=== PATIENT | female | born 1960 | race African-American/Black ===

== ENCOUNTER 2016-08-12 17:15 | Inpatient (IN) | payer OTHER, MEDICAID, MEDICARE ==
[~2016-08-12] VITALS: Ht 162.6 cm; Wt 86.0 kg
[2016-08-12] VITALS (11 sets, daily range): BP systolic 101–239; BP diastolic 56–115; PULSE 86–114; RESP 16–20; TEMP 97.6–98.5; O2SAT 98–100
[2016-08-12] MEDS ORDERED: ATOR10TA15 PO (17:30)
[2016-08-12] MEDS ORDERED: HYDR25TA5 PO (17:30)
[2016-08-12] MEDS ORDERED: GLIP5TAB8 PO (17:30)
[2016-08-12] MEDS ORDERED: ENAL20TA PO (17:30)
[2016-08-12] MEDS ORDERED: SODIUM CHLORIDE 0.9% FLUSH 5 ML FLUSH IV FLUSH PRN (17:30)
[2016-08-12] MEDS ORDERED: METO50TA PO (17:30)
--- NOTE | 2016-08-12 17:42 | RADRPT ---
EXAM DATE/TIME: 08/12/2016 17:28 [facility] COMPARISON: No previous studies available for comparison. INDICATIONS : Altered mental status. Right sided weakness with facial droop. RADIATION DOSE: 34.77 CTDIvol (mGy) MEDICAL HISTORY : Non-responsive. SURGICAL HISTORY : Non-responsive. ENCOUNTER: Initial ACUITY: 1 day PAIN SCALE: Non-responsive LOCATION: facial TECHNIQUE: Multiple contiguous axial images were obtained of the head. Using automated exposure control and adj ustment of the mA and/or kV according to patient size, radiation dose was kept as low as reasonably a chievable to obtain optimal diagnostic quality images. FINDINGS: CEREBRUM: Focal acute hemorrhagic infarct involving the left thalamic area. This is most likely a hypertensive hemorrhagic infarct. There is bilateral cortical atrophy. There is chronic white matter changes bilat erally. No significant mass effect or midline shift. The ventricles are normal in size for patient's age. The hemorrhagic infarct measures 2.3 cm in diameter. POSTERIOR FOSSA: The cerebellum and brainstem are intact. The 4th ventricle is midline. The cerebellopontine angle i s unremarkable. EXTRACRANIAL: The visualized portion of the orbits is intact. SKULL: The calvaria is intact. No evidence of skull fracture. CONCLUSION: 1. Focal acute hemorrhagic infarct involving the left thalamic area measuring 2.3 cm in diameter. Thi s is most likely a hypertensive infarct. 2. Bilateral chronic white matter changes. Arcenio Ceunca MD on August 12, 2016 at 17:38 Board Certified Radiologist. This report was verified electronically.
[2016-08-12] MEDS ORDERED: ETOMIDATE 20 MG/10 ML VIAL IVP ONE (17:45)
[2016-08-12] MEDS ORDERED: ROCURONIUM INJ 50 MG/5 ML VIAL IV ONE (17:45)
[2016-08-12] MEDS ORDERED: LIDOCAINE HCL 2% 100 MG/5 ML SYRINGE IVP ONE (17:45)
[2016-08-12] MEDS ORDERED: SUCCINYLCHOLINE CHLORIDE 200 MG/10 ML VIAL IVP ONE (17:45)
[2016-08-12] MEDS ORDERED: LIDOCAINE HCL 1% 30 ML VIAL INFIL ONE (17:45)
[2016-08-12] MEDS ORDERED: SODIUM CHLORIDE 0.9% FLUSH 10 ML FLUSH IVF PRN (17:45)
[2016-08-12] MEDS ORDERED: PROPOFOL 1000 MG/100 ML INJ 100 ML IV SCH (17:45)
[2016-08-12] MEDS: niCARdipine INJ 25 MG in SODIUM CHLOR 0.9% 250 ML INJ 250 ML IV SCH ×3 (17:57→23:20)
[2016-08-12] MEDS ORDERED: MIDAZOLAM HCL 5 MG/ML VIAL (1 ML) ONE (18:13)
[2016-08-12] MEDS ORDERED: MIDAZOLAM HCL 2 MG/2 ML VIAL IV PUSH ONE (18:15)
[2016-08-12] MEDS ORDERED: MIDAZOLAM 100 MG/ML INJ 100 ML ONE (18:20)
--- NOTE | 2016-08-12 18:27 | RADRPT ---
EXAM DATE/TIME: 08/12/2016 18:09 [facility] COMPARISON: No previous studies available for comparison. INDICATIONS : Post intubation, syncope. MEDICAL HISTORY : None. SURGICAL HISTORY : None. ENCOUNTER: Initial ACUITY: 1 day PAIN SCORE: Non-responsive. LOCATION: Bilateral chest FINDINGS: 2 portable supine views of the chest show an endotracheal tube with the tip at the origin of the righ t mainstem bronchus. Nasogastric tube tip in the region of the body the stomach. Left lower lobe intr alobular infiltrate with air bronchograms. Right lung clear. No effusions. Mild cardiomegaly. Degener ative thoracic spine. CONCLUSION: 1. Tip of the endotracheal tube in the right mainstem bronchus origin. Suggest retracting it 2-3 cm. 2. Left lower lobe infiltrate. 3. Cardiomegaly. Benito Blanco Jr., MD on August 12, 2016 at 18:24 Board Certified Radiologist. This report was verified electronically.
[2016-08-12] MEDS ORDERED: BISACODYL 10 MG SUPP RECTAL PRN (18:30)
[2016-08-12] MEDS ORDERED: SENNOSIDES 8.6 MG TAB PO PRN (18:30)
[2016-08-12] MEDS ORDERED: RESP: ALBUTEROL 2.5 MG/IPRATROPIUM 0.5 MG NEB (PRN) INH (18:30)
[2016-08-12] MEDS ORDERED: MISCELLANEOUS NURSING INFORMATION XX SCH (18:30)
[2016-08-12] MEDS ORDERED: SODIUM CHLORIDE 0.9% FLUSH 10 ML FLUSH PRN (18:30)
[2016-08-12] MEDS ORDERED: LACTULOSE SYRUP 20 GM/30 ML CUP PO PRN (18:30)
[2016-08-12] MEDS ORDERED: CHLORHEXIDINE GLUCONATE 2 % 1 PACK (2 CLOTHS) TOP PRN (18:30)
[2016-08-12 18:32] LABS: AUTOMATED NEUTROPHIL # 14.8 TH/MM3 (1.8-7.7); BASOPHIL % 0.2 % (0.0-2.0); EOSINOPHIL % 0.1 % (0.0-4.0); HEMATOCRIT 32.4 % (35.0-46.0); HEMO FLAGS DIFF FINAL; LYMPH % 6.5 % (9.0-44.0); LYMPHOCYTE # 1.1 TH/MM3 (1.0-4.8); MEAN CELL VOLUME 86.9 FL (80.0-100.0); MEAN CORPUSCULAR HEMOGLOBIN 26.4 PG (27.0-34.0); MEAN CORPUSCULAR HGB CONC 30.4 % (32.0-36.0); MONO % 4.4 % (0.0-8.0); NEUT % 88.8 % (16.0-70.0); PLATELET COUNT 215 TH/MM3 (150-450); RED BLOOD COUNT 3.72 MIL/MM3 (4.00-5.30); RED CELL DISTRIBUTION WIDTH 13.2 % (11.6-17.2); WHITE BLOOD COUNT 16.7 TH/MM3 (4.0-11.0)
[2016-08-12 18:39] LABS: BLOOD, URINE MOD (NEG); GLUCOSE,URINE 70 mg/dL (NEG); KETONE, URINE NEG (NEG); MUCUS URINE FEW /lpf (OCC); NITRITE,URINE NEG (NEG); URINE COLOR LIGHT-YELLOW (YELLW/STRAW)
[2016-08-12 18:41] LABS: COMMENT (UR) CATH-CULT NOT IND; CULTURE IF INDICATED CATH CULTURE NOT IND
[2016-08-12 18:44] LABS: APTT (PATIENT) 25.6 SEC (24.3-30.1); PROTHROMBIN TIME - PATIENT 10.7 SEC (9.8-11.6)
[2016-08-12] MEDS ORDERED: VANCOMYCIN INJ 1,000 MG in SODIUM CHLOR 0.9% 250 ML INJ 250 ML IV STA (18:46)
[2016-08-12] MEDS ORDERED: PIPERACIL-TAZO 4.5 GM PREMIX 100 ML IV STA (18:46)
[2016-08-12 18:47] LABS: ANION GAP 11 MEQ/L (5-15); AST (GOT) 19 U/L (15-37); BICARBONATE 21.2 MEQ/L (21.0-32.0); BLOOD UREA NITROGEN 29 MG/DL (7-18); CHLORIDE 112 MEQ/L (98-107); GLOMERULAR FILTRATION RATE 17 ML/MIN (>89); POTASSIUM 4.1 MEQ/L (3.5-5.1); SODIUM (NA) 144 MEQ/L (136-145)
[2016-08-12 18:48] LABS: ALT (GPT) 19 U/L (10-53)
[2016-08-12] MEDS ORDERED: SUCCINYLCHOLINE CHLORIDE 200 MG/10 ML VIAL ONE (18:48)
[2016-08-12] MEDS ORDERED: ROCURONIUM INJ 50 MG/5 ML VIAL ONE (18:49)
[2016-08-12] MEDS ORDERED: ETOMIDATE 20 MG/10 ML VIAL ONE (18:50)
[2016-08-12 18:57] LABS: ALKALINE PHOSPHATASE 94 U/L (45-117); CREATINE KINASE 338 U/L (26-192); TOTAL BILIRUBIN ADULT 0.3 MG/DL (0.2-1.0)
[2016-08-12 19:01] LABS: BLOOD GAS BASE EXCESS -5.1 mmol/L (-2-2); BLOOD GAS CARBOXYHEMOGLOBIN 1.1 % (0-4); BLOOD GAS HCO3 19 mmol/L (22-26); BLOOD GAS METHEMOGLOBIN 0.7 % (0-2); BLOOD GAS O2 HGB SATURATION 92 % (90-100); BLOOD GAS OXYGEN CONTENT 15.7 Vol % (12.0-20.0); BLOOD GAS PCO2 35 mmHg (38-42); BLOOD GAS PO2 69 mmHG (61-120); BLOOD GAS TOTAL HGB 12.1 G/DL (12.0-16.0); CRITICAL VALUE NO; OXYGEN DEVICE VENTILATOR; TEMP CORR TO 98.6
[2016-08-12 19:02] LABS: DRAW SITE LT RADIAL; FIO2 100 %; NUMBER OF ARTERIAL PUNCTURES 1; STAT YES; ULNAR PULSE PRESENT; VENT SETTINGS PRVC/AC
[2016-08-12 19:10] LABS: CKMB 1.9 NG/ML (0.5-3.6)
[2016-08-12] MEDS ORDERED: LABETALOL HCL 100 MG/20 ML VIAL IV PUSH ONE (19:15)
--- NOTE | 2016-08-12 19:21 | PD ---
HPI Chief Complaint: Neuro Symptoms/ Deficits Time Seen by Provider: 17:19 Travel History International Travel<30 days: No Contact w/Intl Traveler<30days: No Traveled to known affect area: No History of Present Illness HPI 56-year-old female presents with last seen normal at 530am. patient has right sided weakness but outside stroke alert window, nonverbal here. history significantly limited, no prior records, ems provided History Past Medical History Medical History: Unable to Obtain Tetanus Vaccination: Unknown Influenza Vaccination: No Past Surgical History Surgical History: Unable to Obtain Social History Alcohol Use: No (unknown) Tobacco Use: No (unknown) Allergies-Medications (Allergen,Severity, Reaction): Coded Allergies: UNOBTAINABLE (Unverified , 08/12/16) Reported Meds & Prescriptions Reported Meds & Active Scripts Active Reported Metoprolol Tartrate 50 Mg Tab 50 Mg PO BID Enalapril (Enalapril Maleate) 20 Mg Tab 20 Mg PO DAILY Hydrochlorothiazide 25 Mg Tab 25 Mg PO DAILY Glipizide 5 Mg Tab 5 Mg PO BIDAC Take 30 minutes before a meal Atorvastatin (Atorvastatin Calcium) 10 Mg Tab 10 Mg PO HS Review of Systems ROS Limitations: Clinical Condition, Altered Mental Status Physical Exam Exam Limitations: Clinical Condition, Altered Mental Status Narrative GENERAL: Well-nourished, well-developed patient. SKIN: Warm and dry. HEAD: Normocephalic and atraumatic. EYES: No injection or drainage. ENT: No nasal drainage noted. pupils equal NECK: Supple, trachea midline. CARDIOVASCULAR: Regular rate and rhythm RESPIRATORY: Breath sounds equal bilaterally at apices. No accessory muscle use. GASTROINTESTINAL: Abdomen soft, nondistended. NEUROLOGICAL: nonverbal, right sided flaccid paralysis, leftward gaze Data Data Last Documented VS Vital Signs Date Time Temp Pulse Resp B/P Pulse Ox O2 Delivery O2 Flow Rate FiO2 08/12/16 18:05 112 20 222/106 100 Auto-Vent 08/12/16 18:00 100 08/12/16 17:34 2 08/12/16 17:18 97.6 Orders Electrocardiogram (08/12/16 17:19) Complete Blood Count With Diff (08/12/16 17:19) Comprehensive Metabolic Panel (08/12/16 17:19) Creatine Kinase (Cpk) (08/12/16 17:19) Prothrombin Time / Inr (Pt) (08/12/16 17:19) Act Partial Throm Time (Ptt) (08/12/16 17:19) Troponin I (08/12/16 17:19) Thyroid Stimulating Hormone (08/12/16 17:19) Urinalysis - C+S If Indicated (08/12/16 17:19) Chest, Single Ap (08/12/16 17:19) Ct Brain W/O Iv Contrast(Rout) (08/12/16 17:19) Blood Glucose (08/12/16 17:19) Ecg Monitoring (08/12/16 17:19) Iv Access Insert/Monitor (08/12/16 17:19) Oximetry (08/12/16 17:19) Sodium Chloride 0.9% Flush (Ns Flush) (08/12/16:30) Etomidate Inj (Amidate Inj) (08/12/16 17:45) Succinylcholine Inj (Quelicin Inj) (08/12/16 17:45) Sodium Chloride 0.9% Flush (Ns Flush) (08/12/16 17:45) Lidocaine 2% Inj (Xylocaine 2% Inj) (08/12/16 17:45) Rocuronium Inj (Zemuron Inj) (08/12/16 17:45) Propofol 1000 Mg/100 Ml Inj (Diprivan 10 (08/12/16 17:45) ^ Infusion (08/12/16 17:34) RASS (08/12/16 17:34) Neurological Rass Scale ALANA.Q2H (08/12/16 17:34) Nicardipine Inj (Cardene Inj) (08/12/16 17:45) Lidocaine 1% Inj (Xylocaine 1% Inj) (08/12/16 17:45) Admit Order (Ed Use Only) (08/12/16 18:03) CKMB (08/12/16 18:00) CKMB% (08/12/16 18:00) Labs Laboratory Tests Test 08/12/16 18:00 White Blood Count 16.7 TH/MM3 Red Blood Count 3.72 MIL/MM3 Hemoglobin 9.8 GM/DL Hematocrit 32.4 % Mean Corpuscular Volume 86.9 FL Mean Corpuscular Hemoglobin 26.4 PG Mean Corpuscular Hemoglobin 30.4 % Concent Red Cell Distribution Width 13.2 % Platelet Count 215 TH/MM3 Mean Platelet Volume 9.2 FL Neutrophils (%) (Auto) 88.8 % Lymphocytes (%) (Auto) 6.5 % Monocytes (%) (Auto) 4.4 % Eosinophils (%) (Auto) 0.1 % Basophils (%) (Auto) 0.2 % Neutrophils # (Auto) 14.8 TH/MM3 Lymphocytes # (Auto) 1.1 TH/MM3 Monocytes # (Auto) 0.7 TH/MM3 Eosinophils # (Auto) 0.0 TH/MM3 Basophils # (Auto) 0.0 TH/MM3 CBC Comment DIFF FINAL Differential Comment Prothrombin Time 10.7 SEC Prothromb Time International 1.0 RATIO Ratio Activated Partial 25.6 SEC Thromboplast Time Sodium Level 144 MEQ/L Potassium Level 4.1 MEQ/L Chloride Level 112 MEQ/L Carbon Dioxide Level 21.2 MEQ/L Anion Gap 11 MEQ/L Blood Urea Nitrogen 29 MG/DL Creatinine 3.38 MG/DL Estimat Glomerular Filtration 17 ML/MIN Rate Random Glucose 174 MG/DL Calcium Level 9.1 MG/DL Total Bilirubin 0.3 MG/DL Aspartate Amino Transf 19 U/L (AST/SGOT) Alanine Aminotransferase 19 U/L (ALT/SGPT) Alkaline Phosphatase 94 U/L Total Creatine Kinase 338 U/L Creatine Kinase MB 1.9 NG/ML Creatine Kinase MB % 0.6 % Troponin I 0.03 NG/ML Total Protein 7.7 GM/DL Albumin 3.2 GM/DL Thyroid Stimulating Hormone 0.832 uIU/ML [facility] Medical Decision Making Medical Screen Exam Complete: Yes Emergency Medical Condition: Yes Medical Record Reviewed: Yes (no prior records) Interpretation(s) CBC & BMP Diagram 08/12/16 18:00 Last [address] 08/12/161718 Signed Impressions: Service Date/Time: Friday, August 12, 2016 17:28 - CONCLUSION: 1. Focal acute hemorrhagic infarct involving the left thalamic area measuring 2.3 cm in diameter. This is most likely a hypertensive infarct. 2. Bilateral chronic white matter changes. Arcenio Cuenca MD Chest X-Ray 08/12/161718 Signed Impressions: Service Date/Time: Friday, August 12, 2016 18:09 - CONCLUSION: 1. Tip of the endotracheal tube in the right mainstem bronchus origin. Suggest retracting it 2-3 cm. 2. Left lower lobe infiltrate. 3. Cardiomegaly. Benito Blanco Jr., MD et tube pulled back ABG with PO2 of 70 on 100% FiO2 this will need to be reevaluated after ET tube pulled back Differential Diagnosis intracranial bleed, mass, stroke Narrative Course patient arrived with hemiplegia and altered with concern for intracranial bleed. Poor access, left-sided EJ placed by me on 1 attempt and blood sent, Called CT and patient went with staff and large bleed noted. When patient got back to room, intubated and started on cardene for bp control. I was in the room for over an hour to get blood pressure control with titrating propofol and Cardene. Adding versed for additional sedation. Labetalol bolus ordered on top. Rocuronium 45 mg given to decrease movement as propofol was titrated up and versed added. While he was in room patient started to have oxygen saturation in the low 90s with good waveform. Turned up FiO2. ET tube had been pushed down so this was pulled back and oxygen saturations improved. patient will need to be in icu, attempted left radial arterial line and unable to thread, dr davenport to take over care Critical Care Narrative Aggregate critical care time was 100 minutes. Time to perform other separately billable procedures was not included in the critical care time. My time did not include minutes spent treating any other patients simultaneously or on activities that did not directly contribute to the patient's treatment. The services I provided to this patient were to treat and/or prevent clinically significant deterioration that could result in: respiratory failure, shock I provided critical care services requiring my management, as noted below: Chart data review, documentation time, medication orders and management, vital sign assessments/reviewing monitor data, ordering and reviewing lab tests, ordering and interpreting/reviewing x-rays and diagnostic studies, care of the patient and discussion of the patient with the admitting physicians. Procedures Procedure Narrative emergently performed: INTUBATION: The patient was put in optimal position for the procedure. Rapid sequence intubation was initiated by me using 100mg of lidocaine, 5mg of rocuronium, 20 milligrams of etomidate IV and 100 milligrams of succinylcholine IV. The patient was intubated with a 7.5 cuffed endotracheal tube. Tube placement was confirmed by visualization of the tube and balloon passing through the cords, capnometry and subsequent chest x-ray. Breath sounds were equal and well aerated bilaterally postintubation. No breath sounds over stomach. Patient tolerated procedure well. Physician Communication Physician Communication dr davenport agrees to admit Diagnosis Primary Impression: Thalamic hemorrhage Additional Impressions: Hypertensive emergency Respiratory failure Qualified Code: J96.00 - Acute respiratory failure, unspecified whether with hypoxia or hypercapnia Elevated serum creatinine Admitting Information Admitting Physician Requests: Admit Geovanna Blackwell MD August 12, 2016 19:21
[2016-08-12] MEDS ORDERED: hydrALAZINE HCL 20 MG/ML VIAL ONE (19:32)
[2016-08-12] MEDS ORDERED: hydrALAZINE HCL 20 MG/ML VIAL IV ONE (19:34)
[2016-08-12] MEDS ORDERED: hydrALAZINE HCL 20 MG/ML VIAL IV PUSH ONE (19:45)
[2016-08-12] MEDS: SODIUM CHLOR 0.9% 1000 ML INJ 1,000 ML IV SCH (19:50)
--- NOTE | 2016-08-12 20:10 | RADRPT ---
EXAM DATE/TIME: 08/12/2016 19:45 [facility] COMPARISON: CHEST SINGLE AP, August 12, 2016, 18:09. INDICATIONS : Post central line placement. MEDICAL HISTORY : Non-responsive SURGICAL HISTORY : Non-responsive ENCOUNTER: Subsequent ACUITY: 1 day PAIN SCORE: Non-responsive. LOCATION: Bilateral chest FINDINGS: A single portable frontal view of the chest shows interval placement of a right subclavian central li ne. The tip is at the cavoatrial junction. No pneumothorax. Tip of the endotracheal tube just within the right mainstem bronchus. Left lower lobe infiltrate. No effusions. Right lung clear. Degenerative spine. Mild cardiomegaly. CONCLUSION: 1. Subclavian central line in good position. No pneumothorax. 2. Tip of the endotracheal tube within the right mainstem bronchus. 3. Left lower lobe infiltrate. 4. Cardiomegaly. Benito Blanco Jr., MD on August 12, 2016 at 20:07 Board Certified Radiologist. This report was verified electronically.
--- NOTE | 2016-08-12 20:16 | HHI.HP ---
HPI Service Critical Care Medicine Primary Care Physician Unknown Admission Diagnosis intracranial bleed Diagnosis: Travel History International Travel<30 Days: No Contact w/Intl Traveler <30 Da: No Traveled to Known Affected Are: No History of Present Illness 56-year-old female presents with last seen normal at 5:30am. On arrival to emergency department the patient has right sided weakness but outside stroke alert window, nonverbal. The CAT scan of the head showed acute left basal ganglia hemorrhagic stroke. She was intubated by an ER attending for an airway protection admitted to ICU. Review of Systems ROS Unable to obtain patient is sedated and intubated Past Family Social History Allergies: Coded Allergies: UNOBTAINABLE (Unverified , 08/12/16) Past Medical History Diabetes type 2 Hypertension Past Surgical History Unable to obtain Reported Medications Reported Meds & Active Scripts Active Reported Metoprolol Tartrate 50 Mg Tab 50 Mg PO BID Enalapril (Enalapril Maleate) 20 Mg Tab 20 Mg PO DAILY Hydrochlorothiazide 25 Mg Tab 25 Mg PO DAILY Glipizide 5 Mg Tab 5 Mg PO BIDAC Take 30 minutes before a meal Atorvastatin (Atorvastatin Calcium) 10 Mg Tab 10 Mg PO HS Active Ordered Medications Current Medications Medications (Trade) Dose Ordered Sig/Jones Route PRN Reason Start Time Stop Time Status Last Admin Dose Admin Nicardipine HCl 25 mg/Sodium Chloride 260 ml @ 0 mls/hr TITRATE IV 08/12/16 17:45 08/12/16 17:57 Midazolam HCl (Versed Inj) 100 ml @ 0 mls/hr CONTINUOUS IV 08/12/16 18:15 Enalapril Maleate (Vasotec) 20 mg DAILY PO 08/13/16 09:00 Metoprolol Tartrate 50 mg 50 mg BID PO 08/12/16 21:00 Sodium Chloride (NS 1000 ml Inj) 1,000 ml @ 84 mls/hr [id number] IV 08/12/16 19:00 08/12/16 19:50 Sodium Chloride (NS Flush) 2 ml UNSCH PRN .XX FLUSH AFTER USING IV ACCESS 08/12/16 18:30 Sodium Chloride (NS Flush) 2 ml BID .XX 08/12/16 21:00 Acetaminophen (Tylenol) 650 mg Q6H PRN PO PAIN 1-10 AND/OR FEVER >101F 08/12/16 18:30 Morphine Sulfate (Morphine Inj) 2 mg Q2H PRN IV PAIN SCALE 6 TO 10 08/12/16 18:30 Famotidine (Pepcid Inj) 10 mg Q12HR IV PUSH 08/12/16 21:00 Miscellaneous Information 1 [id number] XX 08/12/16 18:30 Chlorhexidine Gluconate (Chlorhexidine 2% Cloth) 3 pack Taper DAILY@04 TOP 08/13/16 04:00 08/09/17 03:59 Chlorhexidine Gluconate (Chlorhexidine 2% Cloth) 3 pack UNSCH PRN TOP HYGIENIC CARE 08/12/16 18:30 Senna/Docusate Sodium (Adele-Colace) 1 tab BID PO 08/12/16 21:00 Magnesium Hydroxide (Milk Of Magnesia Liq) 30 ml Q12H PRN PO MILD - MODERATE CONSTIPATION 08/12/16 18:30 Sennosides (Senokot) 17.2 mg Q12H PRN PO MODERATE - SEVERE CONSTIPATION 08/12/16 18:30 Bisacodyl (Dulcolax Supp) 10 mg DAILY PRN RECTAL SEVERE CONSITIPATION 08/12/16 18:30 Lactulose 30 ml 30 ml DAILY PRN PO SEVERE CONSITIPATION 08/12/16 18:30 Propofol (Diprivan 1000 Mg/100ml Inj) 100 ml @ 0 mls/hr TITRATE IV 08/12/16 18:30 Family History Unable to obtain Social History Unable to obtain Physical Exam Vital Signs Vital Signs Date Time Temp Pulse Resp B/P Pulse Ox O2 Delivery O2 Flow Rate FiO2 08/12/16 19:57 100 08/12/16 19:56 100 100 08/12/16 19:53 86 16 130/71 100 Ventilator 100 08/12/16 18:58 100 100 08/12/16 18:39 114 18 239/114 100 Auto-Vent 08/12/16 18:05 112 20 222/106 100 Auto-Vent 08/12/16 18:00 100 100 08/12/16 17:48 100 08/12/16 17:34 86 16 99 Nasal Cannula 2 08/12/16 17:34 86 16 235/115 99 Nasal Cannula 2 08/12/16 17:18 97.6 86 18 98 Physical Exam GENERAL: Well-nourished, well-developed patient. SKIN: Warm and dry. HEAD: Normocephalic. PERRL EYES: No scleral icterus. No injection or drainage. NECK: Supple, trachea midline. No JVD or lymphadenopathy. CARDIOVASCULAR: Regular rate and rhythm without murmurs, gallops, or rubs. RESPIRATORY: Breath sounds equal bilaterally. No accessory muscle use. GASTROINTESTINAL: Abdomen soft, non-tender, nondistended. MUSCULOSKELETAL: No cyanosis, or edema. BACK: Nontender without obvious deformity. No CVA tenderness. EXTREMITIES: No clubbing cyanosis or edema Laboratory Laboratory Tests Test 08/12/16 08/12/16 08/12/16 18:00 18:10 18:48 White Blood Count 16.7 Red Blood Count 3.72 Hemoglobin 9.8 Hematocrit 32.4 Mean Corpuscular Volume 86.9 Mean Corpuscular Hemoglobin 26.4 Mean Corpuscular Hemoglobin 30.4 Concent Red Cell Distribution Width 13.2 Platelet Count 215 Mean Platelet Volume 9.2 Neutrophils (%) (Auto) 88.8 Lymphocytes (%) (Auto) 6.5 Monocytes (%) (Auto) 4.4 Eosinophils (%) (Auto) 0.1 Basophils (%) (Auto) 0.2 Neutrophils # (Auto) 14.8 Lymphocytes # (Auto) 1.1 Monocytes # (Auto) 0.7 Eosinophils # (Auto) 0.0 Basophils # (Auto) 0.0 CBC Comment DIFF FINAL Differential Comment Prothrombin Time 10.7 Prothromb Time International 1.0 Ratio Activated Partial 25.6 Thromboplast Time Sodium Level 144 Potassium Level 4.1 Chloride Level 112 Carbon Dioxide Level 21.2 Anion Gap 11 Blood Urea Nitrogen 29 Creatinine 3.38 Estimat Glomerular Filtration 17 Rate Random Glucose 174 Calcium Level 9.1 Total Bilirubin 0.3 Aspartate Amino Transf 19 (AST/SGOT) Alanine Aminotransferase 19 (ALT/SGPT) Alkaline Phosphatase 94 Total Creatine Kinase 338 Creatine Kinase MB 1.9 Creatine Kinase MB % 0.6 Troponin I 0.03 Total Protein 7.7 Albumin 3.2 Thyroid Stimulating Hormone 0.832 3rd Gen Urine Color LIGHT-YELLOW Urine Turbidity CLEAR Urine pH 6.0 Urine Specific [place] 1.010 Urine Protein 300 Urine Glucose (UA) 70 Urine Ketones NEG Urine Occult Blood MOD Urine Nitrite NEG Urine Bilirubin NEG Urine Urobilinogen LESS THAN 2.0 Urine Leukocyte Esterase NEG Urine RBC 2 Urine WBC 2 Urine Mucus FEW Microscopic Urinalysis Comment CATH-CULT NOT IND Blood Gas Puncture Site LT RADIAL Blood Gas Patient Temperature 98.6 Blood Gas HCO3 19 Blood Gas Base Excess -5.1 Blood Gas Oxygen Saturation 92 Arterial Blood pH 7.36 Arterial Blood Partial 35 Pressure CO2 Arterial Blood Partial 69 Pressure O2 Arterial Blood Oxygen Content 15.7 Arterial Blood 1.1 Carboxyhemoglobin Arterial Blood Methemoglobin 0.7 Blood Gas Hemoglobin 12.1 Oxygen Delivery Device VENTILATOR Blood Gas Ventilator Setting PRVC/AC Blood Gas Inspired Oxygen 100 Date/Time Procedure Status Source Growth 08/12/16 19:20 Aerobic Blood Culture Received Blood Peripheral Pending 08/12/16 19:20 Anaerobic Blood Culture Received Blood Peripheral Pending Result Diagram: 08/12/16 1800 08/12/16 1800 Imaging Last [address] 08/12/161718 Signed Impressions: Service Date/Time: Friday, August 12, 2016 17:28 - CONCLUSION: 1. Focal acute hemorrhagic infarct involving the left thalamic area measuring 2.3 cm in diameter. This is most likely a hypertensive infarct. 2. Bilateral chronic white matter changes. Arcenio Cuenca MD Chest X-Ray 08/12/161718 Signed Impressions: Service Date/Time: Friday, August 12, 2016 18:09 - CONCLUSION: 1. Tip of the endotracheal tube in the right mainstem bronchus origin. Suggest retracting it 2-3 cm. 2. Left lower lobe infiltrate. 3. Cardiomegaly. Benito Blanco Jr., MD Assessment and Plan Assessment and Plan Respiratory failure - Weighted for an airway protection - SBT and start weaning when neurologically improved Acute hemorrhagic basal ganglia stroke - Due to uncontrolled blood pressure - Admit to ICU - Neuro checks per unit protocol - Repeat CT is tomorrow a.m. - Neurosurgery, - Coags normal - Blood pressure control - SBP goal less 160 Hypertension - Cardene drip to keep SBP less than 160 - Labetalol and hydralazine when necessary Diabetes mellitus - Hold glipizide in the ICU - Insulin sliding scale DVT GI prophylaxis - Teds SCDs - No pharmacological DVT prophylaxis due to acute ICH - Pepcid Critical Care: The total critical care time was 35 minutes. Time to perform other separately billable procedures was not included in the critical care time. Gatito Milian MD August 12, 2016 20:15
[2016-08-12] MEDS: PROPOFOL 1000 MG/100 ML INJ 100 ML IV SCH ×2 (20:21→23:20)
--- NOTE | 2016-08-12 20:23 | PD.PROCEDR ---
Procedure Note Procedure Right subclavian central line placement A time-out was completed verifying correct patient, procedure, site, positioning , and special equipment if applicable. The patient was placed in a dependent position appropriate for The patients right shoulder was prepped and draped in sterile fashion. 1% Lidocaine was used to anesthetize the surrounding skin area. A triple lumen 9- Danish Cordis catheter was introduced into the the right subclavian vein using the Seldinger technique. The catheter was threaded smoothly over the guide wire and appropriate blood return was obtained. Each lumen of the catheter was evacuated of air and flushed with sterile saline. The catheter was then sutured in place to the skin and a sterile dressing applied. Perfusion to the extremity distal to the point of catheter insertion was checked and found to be adequate. Estimated Blood Loss: 1ml The patient tolerated the procedure well and there were no complications. Gatito Milian MD August 12, 2016 20:23
--- NOTE | 2016-08-12 20:24 | PD.PROCEDR ---
Procedure Note Procedure Radial arterial line A time-out was completed verifying correct patient, procedure, site, positioning , and special equipment if applicable. Allens test was performed to ensure adequate perfusion. The patients right wrist was prepped and draped in sterile fashion. 1% Lidocaine was used to anesthetize the area. A 18G Arrow arterial line was introduced into the radial artery. The catheter was threaded over the guide wire and the needle was removed with appropriate pulsatile blood return. The catheter was then sutured in place to the skin and a sterile dressing applied. Perfusion to the extremity distal to the point of catheter insertion was checked and found to be adequate. Estimated Blood Loss: 1ml The patient tolerated the procedure well and there were no complications. Gatito Milian MD August 12, 2016 20:24
[2016-08-12] MEDS: hydrALAZINE HCL 20 MG/ML VIAL IV PUSH PRN (20:59)
[2016-08-12] MEDS: DOCUSATE SODIUM 50 MG/SENNA 8.6 MG TAB PO SCH (21:00)
[2016-08-12] MEDS: METOPROLOL TARTRATE 50 MG TAB PO SCH (21:00)
[2016-08-12] MEDS: SODIUM CHLORIDE 0.9% FLUSH 10 ML FLUSH SCH (21:08)
[2016-08-12] MEDS: FAMOTIDINE 20 MG/2 ML VIAL IV PUSH SCH (21:32)
[2016-08-12] MEDS: MIDAZOLAM 100 MG/ML INJ 100 ML IV SCH (22:08)
[2016-08-13] VITALS (18 sets, daily range): BP systolic 106–150; BP diastolic 52–80; PULSE 64–100; RESP 16; TEMP 97.6–98.3; O2SAT 100
[2016-08-13] MEDS: CHLORHEXIDINE GLUCONATE 2 % 1 PACK (2 CLOTHS) TOP SCH (00:15)
[2016-08-13] MEDS: PROPOFOL 1000 MG/100 ML INJ 100 ML IV SCH ×6 (01:45→20:20)
[2016-08-13 02:31] LABS: BLOOD GAS BASE EXCESS -6.1 mmol/L (-2-2); BLOOD GAS CARBOXYHEMOGLOBIN 0.9 % (0-4); BLOOD GAS HCO3 17 mmol/L (22-26); BLOOD GAS METHEMOGLOBIN 0.9 % (0-2); BLOOD GAS O2 HGB SATURATION 98 % (90-100); BLOOD GAS OXYGEN CONTENT 14.3 Vol % (12.0-20.0); BLOOD GAS PCO2 26 mmHg (38-42); BLOOD GAS PO2 250 mmHg (61-120); BLOOD GAS TOTAL HGB 9.9 G/DL (12.0-16.0); CRITICAL VALUE NO; OXYGEN DEVICE VENTILATOR; TEMP CORR TO 98.6
[2016-08-13 02:32] LABS: VENT SETTINGS PRVC
[2016-08-13 02:33] LABS: DRAW SITE ART LINE; FIO2 60 %; STAT NO
[2016-08-13] MEDS: niCARdipine INJ 25 MG in SODIUM CHLOR 0.9% 250 ML INJ 250 ML IV SCH ×3 (03:40→20:20)
[2016-08-13] MEDS: MIDAZOLAM 100 MG/ML INJ 100 ML IV SCH ×2 (03:40→15:20)
[2016-08-13 05:40] LABS: AUTOMATED NEUTROPHIL # 11.8 TH/MM3 (1.8-7.7); BASOPHIL # 0.1 TH/MM3 (0-0.2); BASOPHIL % 0.4 % (0.0-2.0); EOSINOPHIL % 0.1 % (0.0-4.0); HEMATOCRIT 28.8 % (35.0-46.0); HEMO FLAGS DIFF FINAL; LYMPH % 10.6 % (9.0-44.0); LYMPHOCYTE # 1.5 TH/MM3 (1.0-4.8); MEAN CELL VOLUME 85.6 FL (80.0-100.0); MEAN CORPUSCULAR HEMOGLOBIN 26.7 PG (27.0-34.0); MEAN CORPUSCULAR HGB CONC 31.2 % (32.0-36.0); MONO % 5.5 % (0.0-8.0); NEUT % 83.4 % (16.0-70.0); PLATELET COUNT 192 TH/MM3 (150-450); RED BLOOD COUNT 3.37 MIL/MM3 (4.00-5.30); WHITE BLOOD COUNT 14.2 TH/MM3 (4.0-11.0)
[2016-08-13 06:10] LABS: ANION GAP 14 MEQ/L (5-15); AST (GOT) 16 U/L (15-37); BICARBONATE 19.1 MEQ/L (21.0-32.0); BLOOD UREA NITROGEN 28 MG/DL (7-18); CHLORIDE 115 MEQ/L (98-107); GLOMERULAR FILTRATION RATE 15 ML/MIN (>89); MAGNESIUM 2.2 MG/DL (1.5-2.5); POTASSIUM 3.8 MEQ/L (3.5-5.1); SODIUM (NA) 148 MEQ/L (136-145)
[2016-08-13 06:13] LABS: ALKALINE PHOSPHATASE 79 U/L (45-117); ALT (GPT) 14 U/L (10-53); TOTAL BILIRUBIN ADULT 0.2 MG/DL (0.2-1.0)
[2016-08-13] MEDS: SODIUM CHLOR 0.9% 1000 ML INJ 1,000 ML IV SCH ×2 (06:55→11:37)
--- NOTE | 2016-08-13 07:49 | HHI.CCPN ---
Subjective Remarks/Hospital Course 56-year-old female presents with last seen normal at 5:30am. On arrival to emergency department the patient has right sided weakness but outside stroke alert window, nonverbal. The CAT scan of the head showed acute left basal ganglia hemorrhagic stroke. She was intubated by an ER attending for an airway protection admitted to ICU. 08/13 events overnight, the ICH sites remains the same Objective Vital Signs Date Time Temp Pulse Resp B/P Pulse Ox O2 Delivery O2 Flow Rate FiO2 08/13/16 06:00 83 08/13/16 05:03 100 35 08/13/16 04:00 97.7 16 111/58 08/12/16 21:20 Ventilator 08/12/16 17:34 2 Result Diagram: 08/13/16 0515 08/13/16 0515 Other Results Laboratory Tests Test 08/12/16 08/13/16 18:48 02:14 Blood Gas Puncture Site LT RADIAL ART LINE Blood Gas Patient Temperature 98.6 98.6 Blood Gas HCO3 19 mmol/L 17 mmol/L (22-26) (22-26) Blood Gas Base Excess -5.1 mmol/L -6.1 mmol/L (-2-2) (-2-2) Blood Gas Oxygen Saturation 92 % (90-100) 98 % (90-100) Arterial Blood pH 7.36 7.44 (7.380-7.420) (7.380-7.420) Arterial Blood Partial 35 mmHg (38-42) 26 mmHg (38-42) Pressure CO2 Arterial Blood Partial 69 mmHG 250 mmHg Pressure O2 (61-120) (61-120) Arterial Blood Oxygen Content 15.7 Vol % 14.3 Vol % (12.0-20.0) (12.0-20.0) Arterial Blood 1.1 % (0-4) 0.9 % (0-4) Carboxyhemoglobin Arterial Blood Methemoglobin 0.7 % (0-2) 0.9 % (0-2) Blood Gas Hemoglobin 12.1 G/DL 9.9 G/DL (12.0-16.0) (12.0-16.0) Oxygen Delivery Device VENTILATOR VENTILATOR Blood Gas Ventilator Setting PRVC/AC PRVC Blood Gas Inspired Oxygen 100 % 60 % Imaging Last [address] 08/12/16 6761 Signed Impressions: Service Date/Time: Friday, August 12, 2016 17:28 - CONCLUSION: 1. Focal acute hemorrhagic infarct involving the left thalamic area measuring 2.3 cm in diameter. This is most likely a hypertensive infarct. 2. Bilateral chronic white matter changes. Arcenio Cuenca MD Chest X-Ray 08/12/16 1719 Signed Impressions: Service Date/Time: Friday, August 12, 2016 18:09 - CONCLUSION: 1. Tip of the endotracheal tube in the right mainstem bronchus origin. Suggest retracting it 2-3 cm. 2. Left lower lobe infiltrate. 3. Cardiomegaly. Benito Blanco Jr., MD Objective Remarks GENERAL: Well-nourished, well-developed patient. SKIN: Warm and dry. HEAD: Normocephalic. PERRL EYES: No scleral icterus. No injection or drainage. NECK: Supple, trachea midline. No JVD or lymphadenopathy. CARDIOVASCULAR: Regular rate and rhythm without murmurs, gallops, or rubs. RESPIRATORY: Breath sounds equal bilaterally. No accessory muscle use. GASTROINTESTINAL: Abdomen soft, non-tender, nondistended. MUSCULOSKELETAL: No cyanosis, or edema. BACK: Nontender without obvious deformity. No CVA tenderness. EXTREMITIES: No clubbing cyanosis or edema A/P Assessment and Plan Respiratory failure - Intubated for an airway protection - ICH signs remains the same - SBT today Acute hemorrhagic basal ganglia stroke - Due to uncontrolled blood pressure - Continue Neuro checks per unit protocol - Repeated CT today without changes in size of ICH - Neurosurgery consult pending, - Coags normal - Blood pressure control - SBP goal less 160 Hypertension - Cardene drip to keep SBP less than 160 - Labetalol and hydralazine when necessary Diabetes mellitus - Hold glipizide in the ICU - Insulin sliding scale DVT GI prophylaxis - Teds SCDs - No pharmacological DVT prophylaxis due to acute ICH - Pepcid Critical Care: The total critical care time was 35 minutes. Time to perform other separately billable procedures was not included in the critical care time. Gatito Milian MD August 13, 2016 07:48
--- NOTE | 2016-08-13 08:27 | RADRPT ---
EXAM DATE/TIME: 08/13/2016 04:37 [facility] COMPARISON: CT BRAIN W/O CONTRAST, August 12, 2016, 17:28. INDICATIONS : Follow up hemorrhage. RADIATION DOSE: 33.84 CTDIvol (mGy) MEDICAL HISTORY : None SURGICAL HISTORY : None. ENCOUNTER: Subsequent ACUITY: 1 day PAIN SCALE: Non-responsive LOCATION: cranial TECHNIQUE: Multiple contiguous axial images were obtained of the head. Using automated exposure control and adj ustment of the mA and/or kV according to patient size, radiation dose was kept as low as reasonably a chievable to obtain optimal diagnostic quality images. FINDINGS: Left thalamic parenchymal hematoma is unchanged mild surrounding edema. Diffuse diminished white leo er attenuation elsewhere is also stable. There are no new acute findings. CONCLUSION: Stable brain appearance Estrada Snow MD on August 13, 2016 at 5:56 Board Certified Radiologist. This report was verified electronically.
--- NOTE | 2016-08-13 08:41 | PD.CONS ---
(Chris Tran MD) HPI Consult Requested By Primary Care Physician Unknown (Chris Tran MD) Service Neurosurgery Consult Requested By Dr. Milian Reason for Consult Intracranial Hemorrhage History of Present Illness Ms. Richey is a 56-year-old female who presents to [facility] ED with altered mental status and right side weakness. On arrival her blood pressure in chart was 235/115. Her CT scan of the head showed acute left basal ganglia hemorrhagic stroke. She was intubated by an ER attending for an airway protection admitted to ICU. She is sedated. Does not open eyes or follow commands. On Cardene drip for blood pressure control. (Cinthia Rosas) Review of Systems ROS Limitations: Clinical Condition, Intubated, Unresponsive (Cinthia Rosas) Past Family Social History Allergies: Coded Allergies: UNOBTAINABLE (Unverified , 08/12/16) Past Medical History Per EMR: Diabetes type 2 Hypertension Past Surgical History Unable to obtain, no reported surgical hx on EMR Reported Medications Per EMR Metoprolol Tartrate 50 Mg Tab 50 Mg PO BID Enalapril (Enalapril Maleate) 20 Mg Tab 20 Mg PO DAILY Hydrochlorothiazide 25 Mg Tab 25 Mg PO DAILY Glipizide 5 Mg Tab 5 Mg PO BIDAC, Take 30 minutes before a meal Atorvastatin (Atorvastatin Calcium) 10 Mg Tab 10 Mg PO HS Active Ordered Medications Current Medications Medications (Trade) Dose Ordered Sig/Jones Route PRN Reason Start Time Stop Time Status Last Admin Dose Admin Midazolam HCl (Versed Inj) 100 ml @ 0 mls/hr CONTINUOUS IV 08/12/16 18:15 08/13/16 03:40 Enalapril Maleate (Vasotec) 20 mg DAILY PO 08/13/16 09:00 Metoprolol Tartrate 50 mg 50 mg BID PO 08/12/16 21:00 08/13/16 09:36 Sodium Chloride (NS 1000 ml Inj) 1,000 ml @ 84 mls/hr [id number] IV 08/12/16 19:00 08/13/16 06:55 Sodium Chloride (NS Flush) 2 ml UNSCH PRN .XX FLUSH AFTER USING IV ACCESS 08/12/16 18:30 Sodium Chloride (NS Flush) 2 ml BID .XX 08/12/16 21:00 08/13/16 09:37 Acetaminophen (Tylenol) 650 mg Q6H PRN PO PAIN 1-10 AND/OR FEVER >101F 08/12/16 18:30 Morphine Sulfate (Morphine Inj) 2 mg Q2H PRN IV PAIN SCALE 6 TO 10 08/12/16 18:30 Famotidine (Pepcid Inj) 10 mg Q12HR IV PUSH 08/12/16 21:00 08/13/16 09:36 Miscellaneous Information 1 [id number] 08/12/16 18:30 Chlorhexidine Gluconate (Chlorhexidine 2% Cloth) 3 pack Taper DAILY@04 TOP 08/13/16 04:00 08/09/17 03:59 08/13/16 00:15 Chlorhexidine Gluconate (Chlorhexidine 2% Cloth) 3 pack UNSCH PRN TOP HYGIENIC CARE 08/12/16 18:30 Senna/Docusate Sodium (Adele-Colace) 1 tab BID PO 08/12/16 21:00 08/13/16 09:36 Magnesium Hydroxide (Milk Of Magnidalmis Liq) 30 ml Q12H PRN PO MILD - MODERATE CONSTIPATION 08/12/16 18:30 Sennosides (Senokot) 17.2 mg Q12H PRN PO MODERATE - SEVERE CONSTIPATION 08/12/16 18:30 Bisacodyl (Dulcolax Supp) 10 mg DAILY PRN RECTAL SEVERE CONSITIPATION 08/12/16 18:30 Lactulose 30 ml 30 ml DAILY PRN PO SEVERE CONSITIPATION 08/12/16 18:30 Propofol 100 ml @ 0 mls/hr TITRATE IV 08/12/16 18:30 08/13/16 06:16 Nicardipine HCl/ Sodium Chloride (Cardene Inj/NS 250 ml Inj) 260 ml @ 0 mls/hr TITRATE IV 08/12/16 20:30 08/13/16 03:40 Hydralazine HCl (Apresoline Inj) 20 mg Q4H PRN IV PUSH SBP>160, DBP>90 08/12/16 20:30 08/12/16 20:59 Labetalol HCl (Trandate Inj) 10 mg Q4H PRN IV PUSH SBP>160, DBP>90 08/12/16 20:30 Family History cannot obtain, no family history in medical record Social History cannot obtain (Cinthia Rosas) Physical Exam Vital Signs Vital Signs Date Time Temp Pulse Resp B/P Pulse Ox O2 Delivery O2 Flow Rate FiO2 08/13/16 08:05 100 35 08/13/16 06:00 83 08/13/16 05:03 100 35 08/13/16 04:24 100 100 08/13/16 04:00 83 08/13/16 04:00 97.7 83 16 111/58 100 08/13/16 04:00 35 08/13/16 02:00 98 08/13/16 01:30 60 08/13/16 00:51 100 100 08/13/16 00:00 100 08/13/16 00:00 100 08/13/16 00:00 98.3 100 16 130/60 100 08/12/16 22:00 100 08/12/16 22:00 98.5 100 16 142/60 100 08/12/16 21:45 100 100 08/12/16 21:20 99 16 153/56 100 Ventilator 100 08/12/16 19:57 100 08/12/16 19:56 100 100 08/12/16 19:53 86 16 130/71 100 Ventilator 100 08/12/16 18:58 100 100 08/12/16 18:39 114 18 239/114 100 Auto-Vent 08/12/16 18:05 112 20 222/106 100 Auto-Vent 08/12/16 18:00 100 100 08/12/16 17:48 100 08/12/16 17:34 86 16 99 Nasal Cannula 2 08/12/16 17:34 86 16 235/115 99 Nasal Cannula 2 08/12/16 17:18 97.6 86 18 98 Physical Exam Ms. Richey is intubated and sedated. She does not open eyes. Cranial Nerves: Pupils 2 mm equal, round. Eyes appear conjugated. Face musculature appeared symmetrical at rest. Face sensation, olfaction, visual young, and hearing cannot be adequately assessed due to his neurological condition. Cervical Spine: His neck is soft, supple, without nuchal rigidity. Motor: His muscle tone and bulk are normal. She withdraws to pain to all four extremities. Reflexes: Deep tendon reflexes are 1+ and symmetrical in the biceps, triceps, and brachioradialis, bilaterally, in the upper extremities. In the lower extremities, the patellar and ankles are 1+, bilaterally. Bilateral plantar response neutral. Sensory: On examination there is response to painful stimuli, withdrawing in both upper and lower extremities to pain Cerebellar: cannot assess due to clinical condition Laboratory Laboratory Tests Test 08/12/16 08/12/16 08/12/16 08/12/16 18:00 18:10 18:48 19:24 White Blood Count 16.7 Red Blood Count 3.72 Hemoglobin 9.8 Hematocrit 32.4 Mean Corpuscular Volume 86.9 Mean Corpuscular Hemoglobin 26.4 Mean Corpuscular Hemoglobin 30.4 Concent Red Cell Distribution Width 13.2 Platelet Count 215 Mean Platelet Volume 9.2 Neutrophils (%) (Auto) 88.8 Lymphocytes (%) (Auto) 6.5 Monocytes (%) (Auto) 4.4 Eosinophils (%) (Auto) 0.1 Basophils (%) (Auto) 0.2 Neutrophils # (Auto) 14.8 Lymphocytes # (Auto) 1.1 Monocytes # (Auto) 0.7 Eosinophils # (Auto) 0.0 Basophils # (Auto) 0.0 CBC Comment DIFF FINAL Differential Comment Prothrombin Time 10.7 Prothromb Time International 1.0 Ratio Activated Partial 25.6 Thromboplast Time Sodium Level 144 Potassium Level 4.1 Chloride Level 112 Carbon Dioxide Level 21.2 Anion Gap 11 Blood Urea Nitrogen 29 Creatinine 3.38 Estimat Glomerular Filtration 17 Rate Random Glucose 174 Calcium Level 9.1 Total Bilirubin 0.3 Aspartate Amino Transf 19 (AST/SGOT) Alanine Aminotransferase 19 (ALT/SGPT) Alkaline Phosphatase 94 Total Creatine Kinase 338 Creatine Kinase MB 1.9 Creatine Kinase MB % 0.6 Troponin I 0.03 Total Protein 7.7 Albumin 3.2 Thyroid Stimulating Hormone 0.832 3rd Gen Urine Color LIGHT-YELLOW Urine Turbidity CLEAR Urine pH 6.0 Urine Specific [place] 1.010 Urine Protein 300 Urine Glucose (UA) 70 Urine Ketones NEG Urine Occult Blood MOD Urine Nitrite NEG Urine Bilirubin NEG Urine Urobilinogen LESS THAN 2.0 Urine Leukocyte Esterase NEG Urine RBC 2 Urine WBC 2 Urine Mucus FEW Microscopic Urinalysis Comment CATH-CULT NOT IND Blood Gas Puncture Site LT RADIAL Blood Gas Patient Temperature 98.6 Blood Gas HCO3 19 Blood Gas Base Excess -5.1 Blood Gas Oxygen Saturation 92 Arterial Blood pH 7.36 Arterial Blood Partial 35 Pressure CO2 Arterial Blood Partial 69 Pressure O2 Arterial Blood Oxygen Content 15.7 Arterial Blood 1.1 Carboxyhemoglobin Arterial Blood Methemoglobin 0.7 Blood Gas Hemoglobin 12.1 Oxygen Delivery Device VENTILATOR Blood Gas Ventilator Setting PRVC/AC Blood Gas Inspired Oxygen 100 Lactic Acid Level 1.5 Test 08/13/16 08/13/16 02:14 05:15 Blood Gas Puncture Site ART LINE Blood Gas Patient Temperature 98.6 Blood Gas HCO3 17 Blood Gas Base Excess -6.1 Blood Gas Oxygen Saturation 98 Arterial Blood pH 7.44 Arterial Blood Partial 26 Pressure CO2 Arterial Blood Partial 250 Pressure O2 Arterial Blood Oxygen Content 14.3 Arterial Blood 0.9 Carboxyhemoglobin Arterial Blood Methemoglobin 0.9 Blood Gas Hemoglobin 9.9 Oxygen Delivery Device VENTILATOR Blood Gas Ventilator Setting PRVC Blood Gas Inspired Oxygen 60 White Blood Count 14.2 Red Blood Count 3.37 Hemoglobin 9.0 Hematocrit 28.8 Mean Corpuscular Volume 85.6 Mean Corpuscular Hemoglobin 26.7 Mean Corpuscular Hemoglobin 31.2 Concent Red Cell Distribution Width 13.0 Platelet Count 192 Mean Platelet Volume 9.0 Neutrophils (%) (Auto) 83.4 Lymphocytes (%) (Auto) 10.6 Monocytes (%) (Auto) 5.5 Eosinophils (%) (Auto) 0.1 Basophils (%) (Auto) 0.4 Neutrophils # (Auto) 11.8 Lymphocytes # (Auto) 1.5 Monocytes # (Auto) 0.8 Eosinophils # (Auto) 0.0 Basophils # (Auto) 0.1 CBC Comment DIFF FINAL Differential Comment Sodium Level 148 Potassium Level 3.8 Chloride Level 115 Carbon Dioxide Level 19.1 Anion Gap 14 Blood Urea Nitrogen 28 Creatinine 3.66 Estimat Glomerular Filtration 15 Rate Random Glucose 254 Calcium Level 8.4 Phosphorus Level 2.6 Magnesium Level 2.2 Total Bilirubin 0.2 Aspartate Amino Transf 16 (AST/SGOT) Alanine Aminotransferase 14 (ALT/SGPT) Alkaline Phosphatase 79 Total Protein 6.6 Albumin 2.7 Date/Time Procedure Status Source Growth 08/12/16 19:20 Aerobic Blood Culture Received Blood Peripheral Pending 08/12/16 19:20 Anaerobic Blood Culture Received Blood Peripheral Pending (Chris Tran MD) Physical Exam Ms. Richey is intubated and sedated. She does not open eyes. Cranial Nerves: Pupils 2 mm equal, round. Eyes appear conjugated. Face musculature appeared symmetrical at rest. Face sensation, olfaction, visual young, and hearing cannot be adequately assessed due to his neurological condition. Cervical Spine: His neck is soft, supple, without nuchal rigidity. Motor: His muscle tone and bulk are normal. She withdraws to pain to all four extremities. Reflexes: Deep tendon reflexes are 1+ and symmetrical in the biceps, triceps, and brachioradialis, bilaterally, in the upper extremities. In the lower extremities, the patellar and ankles are 1+, bilaterally. Bilateral plantar response neutral. Sensory: On examination there is response to painful stimuli, withdrawing in both upper and lower extremities to pain Cerebellar: cannot assess due to clinical condition (Cinthia Rosas) Result Diagram: 08/13/1651408/13/16514 Imaging Last Impressions Head CT 08/13/16 0800 Signed Impressions: Service Date/Time: Saturday, August 13, 2016 04:37 - CONCLUSION: Stable brain appearance Estrada Snow MD Chest X-Ray 08/12/16 1719 Signed Impressions: Service Date/Time: Friday, August 12, 2016 18:09 - CONCLUSION: 1. Tip of the endotracheal tube in the right mainstem bronchus origin. Suggest retracting it 2-3 cm. 2. Left lower lobe infiltrate. 3. Cardiomegaly. Benito Blanco Jr., MD (Chris Tran MD) Attending Statement Neuro. I have reviewed her clinical and radiological findings. Start neuro checks in a serial fashion. Recommend follow up CT in 24 hrs HTN. Treat with antihypertensives as needed She has developed angioedema, possibly related to NEGRITO inhibitors. Defer to privacy manager Pulmonary. Wean mechanical ventilation. Continue aggressive pulmonary toilette, nasotracheal suction, and breathing treatments with nebulizers. PT and OT evaluation Nutrition. NPO Renal. monitor closely urine output, BUN and creatinine Endocrine. Monitor serial Acu checks and SSI as needed in detail ID monitor for signs of infection Protonix for stress ulcer prophylaxis Grady hose and SCD's for DVT prophylaxis (Chris Tran MD) Chris Tran MD August 13, 2016 08:41 Cinthia Rosas August 13, 2016 10:05
[2016-08-13] MEDS ORDERED: ENALAPRIL MALEATE 10 MG TAB PO SCH (09:00)
[2016-08-13] MEDS ORDERED: DEXAMETHASONE SOD PHOS 20 MG/5 ML VIAL IV PUSH ONE (09:15)
--- NOTE | 2016-08-13 09:18 | EKG ---
Date Performed: 08/12/2016 Time Performed: 19:41:40 PTAGE: 56 years EKG: Sinus rhythm PATTERN CONSISTENT WITH PULMONARY DISEASE LEFT ANTERIOR FASCICULAR BLOCK MINIMAL VOLTAGE CRITERIA FO R LVH, CONSIDER NORMAL VARIANT PROLONGED QT INTERVAL ABNORMAL ECG NO PREVIOUS TRACING DOCTOR: Mateus Bhandari Interpretating Date/Time 08/13/2016 09:15:39
[2016-08-13] MEDS: METOPROLOL TARTRATE 50 MG TAB PO SCH ×2 (09:36→20:21)
[2016-08-13] MEDS: FAMOTIDINE 20 MG/2 ML VIAL IV PUSH SCH ×2 (09:36→20:20)
[2016-08-13] MEDS: DOCUSATE SODIUM 50 MG/SENNA 8.6 MG TAB PO SCH ×2 (09:36→20:20)
[2016-08-13] MEDS: SODIUM CHLORIDE 0.9% FLUSH 10 ML FLUSH SCH ×2 (09:37→20:21)
[2016-08-13] MEDS: hydrALAZINE HCL 20 MG/ML VIAL IV PUSH PRN (16:49)
[2016-08-14] VITALS (18 sets, daily range): BP systolic 106–144; BP diastolic 58–72; PULSE 60–82; RESP 16–28; TEMP 97–98.4; O2SAT 100
[2016-08-14] MEDS: MIDAZOLAM 100 MG/ML INJ 100 ML IV SCH ×2 (00:41→09:45)
[2016-08-14] MEDS: PROPOFOL 1000 MG/100 ML INJ 100 ML IV SCH ×2 (03:00→09:45)
[2016-08-14] MEDS: niCARdipine INJ 25 MG in SODIUM CHLOR 0.9% 250 ML INJ 250 ML IV SCH ×8 (03:20→22:22)
[2016-08-14] MEDS: CHLORHEXIDINE GLUCONATE 2 % 1 PACK (2 CLOTHS) TOP SCH (04:00)
[2016-08-14 04:47] LABS: AUTOMATED NEUTROPHIL # 13.8 TH/MM3 (1.8-7.7); BASOPHIL % 0.1 % (0.0-2.0); HEMATOCRIT 33.2 % (35.0-46.0); HEMO FLAGS DIFF FINAL; LYMPH % 6.2 % (9.0-44.0); LYMPHOCYTE # 0.9 TH/MM3 (1.0-4.8); MEAN CORPUSCULAR HEMOGLOBIN 26.6 PG (27.0-34.0); MONO % 1.4 % (0.0-8.0); NEUT % 92.3 % (16.0-70.0); PLATELET COUNT 224 TH/MM3 (150-450); RED BLOOD COUNT 3.86 MIL/MM3 (4.00-5.30); RED CELL DISTRIBUTION WIDTH 13.6 % (11.6-17.2)
[2016-08-14 05:17] LABS: ALT (GPT) 19 U/L (10-53); ANION GAP 13 MEQ/L (5-15); AST (GOT) 13 U/L (15-37); BICARBONATE 17.5 MEQ/L (21.0-32.0); BLOOD UREA NITROGEN 31 MG/DL (7-18); CHLORIDE 118 MEQ/L (98-107); GLOMERULAR FILTRATION RATE 16 ML/MIN (>89); MAGNESIUM 2.4 MG/DL (1.5-2.5); SODIUM (NA) 148 MEQ/L (136-145)
[2016-08-14 05:18] LABS: ALKALINE PHOSPHATASE 93 U/L (45-117); TOTAL BILIRUBIN ADULT 0.3 MG/DL (0.2-1.0)
[2016-08-14] MEDS: SODIUM CHLOR 0.9% 1000 ML INJ 1,000 ML IV SCH ×2 (06:27→09:45)
--- NOTE | 2016-08-14 07:30 | HHI.CCPN ---
Subjective Remarks/Hospital Course 56-year-old female presents with last seen normal at 5:30am. On arrival to emergency department the patient has right sided weakness but outside stroke alert window, nonverbal. The CAT scan of the head showed acute left basal ganglia hemorrhagic stroke. She was intubated by an ER attending for an airway protection admitted to ICU. 08/13 events overnight, the ICH sites remains the same. 08/14: BP control acceptable. Moves 4 limbs to stimulation, does not follow commands. Objective Vital Signs Date Time Temp Pulse Resp B/P Pulse Ox O2 Delivery O2 Flow Rate FiO2 08/14/16 06:15 100 35 08/14/16 06:00 64 08/14/16 04:00 97.8 16 144/72 08/13/16 19:00 Mechanical Ventilator 08/12/16 17:34 2 Intake and Output 08/13/16 08/13/16 08/14/16 08:00 16:00 00:00 Intake Total 2736 ml 1550 ml 1066 ml Output Total 500 ml 355 ml 300 ml Balance 2236 ml 1195 ml 766 ml Result Diagram: 08/14/16 0425 08/14/16 0425 Imaging Last [address] 08/12/161718 Signed Impressions: Service Date/Time: Friday, August 12, 2016 17:28 - CONCLUSION: 1. Focal acute hemorrhagic infarct involving the left thalamic area measuring 2.3 cm in diameter. This is most likely a hypertensive infarct. 2. Bilateral chronic white matter changes. Arcenio Cuenca MD Chest X-Ray 08/12/161718 Signed Impressions: Service Date/Time: Friday, August 12, 2016 18:09 - CONCLUSION: 1. Tip of the endotracheal tube in the right mainstem bronchus origin. Suggest retracting it 2-3 cm. 2. Left lower lobe infiltrate. 3. Cardiomegaly. Benito Blanco Jr., MD Objective Remarks GENERAL: Middle age patient. SKIN: Warm and dry. HEAD: Normocephalic. PERRL, 1 mm. EYES: No scleral icterus. No injection or drainage. NECK: Supple, trachea midline.Orally intubated. CARDIOVASCULAR: Regular rate and rhythm without murmurs, gallops, or rubs. No JVD. RESPIRATORY: Breath sounds equal bilaterally. No accessory muscle use. GASTROINTESTINAL: Abdomen soft, non-tender, nondistended. BS active. MUSCULOSKELETAL: No cyanosis, or edema. Well perfused. BACK: Nontender without obvious deformity. No CVA tenderness. EXTREMITIES: No clubbing cyanosis or edema. Neuro: Moves 4 limbs. Pupils 1 mm, reactive A/P Assessment and Plan Respiratory failure - Intubated for an airway protection - ICH remains the same - SBT today Acute hemorrhagic basal ganglia stroke - Due to uncontrolled blood pressure - Continue Neuro checks per unit protocol - Repeated CT today without changes in size of ICH - Neurosurgery consult pending, - Coags normal - Blood pressure control - SBP goal less 160 Hypertension - Cardene drip to keep SBP less than 160 - Labetalol and hydralazine when necessary Diabetes mellitus - Hold glipizide in the ICU - Insulin sliding scale DVT GI prophylaxis - Teds SCDs - No pharmacological DVT prophylaxis due to acute ICH - Pepcid Overall impression: Critically ill with acute intracranial hemorrhage. Unable to wean from ventilator. Critical Care 36 mins Sanford Lilly MD Aug 14, 2016 07:30
--- NOTE | 2016-08-14 08:56 | HHI.NSPN ---
Note Status Status: Progress Note Interval History Interval History Ms. Richey is a 56-year-old female who presents to [place] ED with altered mental status and right side weakness. On arrival her blood pressure in chart was 235/115. Her CT scan of the head showed acute left basal ganglia hemorrhagic stroke. She was intubated by an ER attending for an airway protection admitted to ICU. She is sedated. Does not open eyes or follow commands. On Cardene drip for blood pressure control. 08/14: f/u CT Head 08/13 showed stable findings. With angioedema. Intubated and sedated. 08/15: sedation off, not opening eyes or following commands. Labs, Micro, & Vital Signs Results Date Time Temp Pulse Resp B/P Pulse Ox O2 Delivery O2 Flow Rate FiO2 08/14/16 07:59 100 35 08/14/16 06:15 100 35 08/14/16 06:00 64 08/14/16 04:00 35 08/14/16 04:00 97.8 70 16 144/72 100 08/14/16 04:00 70 08/14/16 02:00 62 08/14/16 00:00 98.0 60 16 106/58 100 08/14/16 00:00 35 08/14/16 00:00 60 08/13/16 22:00 68 08/13/16 20:30 100 35 08/13/16 20:00 70 08/13/16 20:00 97.6 70 16 106/52 100 08/13/16 20:00 35 08/13/16 19:00 Mechanical Ventilator 35 08/13/16 18:00 81 08/13/16 16:00 35 08/13/16 16:00 97.6 64 16 110/64 100 150/78 08/13/16 16:00 64 08/13/16 14:00 65 08/13/16 12:50 100 35 08/13/16 12:00 35 08/13/16 12:00 97.8 74 16 150/80 100 122/64 08/13/16 12:00 74 08/13/16 10:00 84 08/14/16 07:00 Intake Total 3846 ml Output Total 1055 ml Balance 2791 ml Constitutional Vital Signs Date Time Temp Pulse Resp B/P Pulse Ox O2 Delivery O2 Flow Rate FiO2 08/14/16 07:59 100 35 08/14/16 06:15 100 35 08/14/16 06:00 64 08/14/16 04:00 35 08/14/16 04:00 97.8 70 16 144/72 100 08/14/16 04:00 70 08/14/16 02:00 62 08/14/16 00:00 98.0 60 16 106/58 100 08/14/16 00:00 35 08/14/16 00:00 60 08/13/16 22:00 68 08/13/16 20:30 100 35 08/13/16 20:00 70 08/13/16 20:00 97.6 70 16 106/52 100 08/13/16 20:00 35 08/13/16 19:00 Mechanical Ventilator 35 08/13/16 18:00 81 08/13/16 16:00 35 08/13/16 16:00 97.6 64 16 110/64 100 150/78 08/13/16 16:00 64 08/13/16 14:00 65 08/13/16 12:50 100 35 08/13/16 12:00 35 08/13/16 12:00 97.8 74 16 150/80 100 122/64 08/13/16 12:00 74 08/13/16 10:00 84 08/14/16 07:00 Intake Total 3846 ml Output Total 1055 ml Balance 2791 ml Review of Systems/Exam Exam Ms. Richey is intubated off sedatives. She does not open eyes. She does not follow commands. Cranial Nerves: Pupils 2 mm equal, round. Eyes appear conjugated. Face musculature appeared symmetrical at rest. Face sensation, olfaction, visual young, and hearing cannot be adequately assessed due to his neurological condition. Neck: soft supple Angioedema of lip and tongue Motor: She withdraws to pain to in upper and lower extremities bilaterally. Reflexes: Deep tendon reflexes are 1+ and symmetrical in the biceps, triceps, and brachioradialis, bilaterally, in the upper extremities. In the lower extremities, the patellar and ankles are 1+, bilaterally. Bilateral plantar response neutral. Sensory: On examination there is response to painful stimuli, withdrawing in both upper and lower extremities to pain Cerebellar: cannot assess due to clinical condition Medications Current Medications Current Medications Medications (Trade) Dose Ordered Sig/Jones Route PRN Reason Start Time Stop Time Status Last Admin Dose Admin Midazolam HCl (Versed Inj) 100 ml @ 0 mls/hr CONTINUOUS IV 08/12/16 18:15 08/14/16 00:41 Metoprolol Tartrate 50 mg 50 mg BID PO 08/12/16 21:00 08/13/16 20:21 Sodium Chloride (NS 1000 ml Inj) 1,000 ml @ 84 mls/hr [id number] IV 08/12/16 19:00 08/14/16 06:27 Sodium Chloride (NS Flush) 2 ml UNSCH PRN .XX FLUSH AFTER USING IV ACCESS 08/12/16 18:30 Sodium Chloride (NS Flush) 2 ml BID .XX 08/12/16 21:00 08/13/16 09:37 Acetaminophen (Tylenol) 650 mg Q6H PRN PO PAIN 1-10 AND/OR FEVER >101F 08/12/16 18:30 Morphine Sulfate (Morphine Inj) 2 mg Q2H PRN IV PAIN SCALE 6 TO 10 08/12/16 18:30 Famotidine (Pepcid Inj) 10 mg Q12HR IV PUSH 08/12/16 21:00 08/13/16 20:20 Miscellaneous Information 1 [id number] XX 08/12/16 18:30 Chlorhexidine Gluconate (Chlorhexidine 2% Cloth) 3 pack Taper DAILY@04 TOP 08/13/16 04:00 08/09/17 03:59 08/14/16 04:00 Chlorhexidine Gluconate (Chlorhexidine 2% Cloth) 3 pack UNSCH PRN TOP HYGIENIC CARE 08/12/16 18:30 Senna/Docusate Sodium (Adele-Colace) 1 tab BID PO 08/12/16 21:00 08/13/16 20:20 Magnesium Hydroxide (Milk Of Magnesia Liq) 30 ml Q12H PRN PO MILD - MODERATE CONSTIPATION 08/12/16 18:30 Sennosides (Senokot) 17.2 mg Q12H PRN PO MODERATE - SEVERE CONSTIPATION 08/12/16 18:30 Bisacodyl (Dulcolax Supp) 10 mg DAILY PRN RECTAL SEVERE CONSITIPATION 08/12/16 18:30 Lactulose 30 ml 30 ml DAILY PRN PO SEVERE CONSITIPATION 08/12/16 18:30 Propofol 100 ml @ 0 mls/hr TITRATE IV 08/12/16 18:30 08/14/16 03:00 Nicardipine HCl/ Sodium Chloride (Cardene Inj/NS 250 ml Inj) 260 ml @ 0 mls/hr TITRATE IV 08/12/16 20:30 08/14/16 06:27 Hydralazine HCl (Apresoline Inj) 20 mg Q4H PRN IV PUSH SBP>160, DBP>90 08/12/16 20:30 08/13/16 16:49 Labetalol HCl (Trandate Inj) 10 mg Q4H PRN IV PUSH SBP>160, DBP>90 08/12/16 20:30 Medical Decision Making MDM Remarks 56 y/o female with left basal ganglia bleed, most likely hypertensive in etiology sedation off since 08/14, remains encephalopathic Plan Plan Remarks EEG f/u CT Head yesterday stable, cont nonsurgical management cont serial neuro checks cont critical care management sedation and vent weaning as tolerated nonchemical dvt prophylaxis with SCDs and TEDs dw her at bedside Cinthia Rosas Aug 14, 2016 08:56
[2016-08-14] MEDS: DOCUSATE SODIUM 50 MG/SENNA 8.6 MG TAB PO SCH ×2 (09:46→20:11)
[2016-08-14] MEDS: FAMOTIDINE 20 MG/2 ML VIAL IV PUSH SCH ×2 (09:46→20:11)
[2016-08-14] MEDS: SODIUM CHLORIDE 0.9% FLUSH 10 ML FLUSH SCH ×2 (09:46→21:19)
[2016-08-14] MEDS: METOPROLOL TARTRATE 50 MG TAB PO SCH ×2 (09:46→20:11)
[2016-08-14] MEDS: hydrALAZINE HCL 20 MG/ML VIAL IV PUSH PRN (22:03)
[2016-08-15] VITALS (17 sets, daily range): BP systolic 115–160; BP diastolic 57–79; PULSE 74–92; RESP 16–30; TEMP 97.4–98.2; O2SAT 98–100
[2016-08-15] MEDS: LABETALOL HCL 100 MG/20 ML VIAL IV PUSH PRN ×2 (00:56→16:49)
[2016-08-15] MEDS: niCARdipine INJ 25 MG in SODIUM CHLOR 0.9% 250 ML INJ 250 ML IV SCH ×4 (02:20→17:40)
[2016-08-15] MEDS: hydrALAZINE HCL 20 MG/ML VIAL IV PUSH PRN (03:12)
[2016-08-15] MEDS: CHLORHEXIDINE GLUCONATE 2 % 1 PACK (2 CLOTHS) TOP SCH (04:00)
[2016-08-15 04:50] LABS: BICARBONATE 15.5 MEQ/L (21.0-32.0)
[2016-08-15] MEDS: SODIUM CHLOR 0.9% 1000 ML INJ 1,000 ML IV SCH ×2 (05:41→18:36)
[2016-08-15 05:52] LABS: CALCIUM-PROTEIN CORRECTED 7.8 MG/DL (8.5-10.1)
--- NOTE | 2016-08-15 07:29 | HHI.CCPN ---
Subjective Remarks/Hospital Course 56-year-old female presents with last seen normal at 5:30am. On arrival to emergency department the patient has right sided weakness but outside stroke alert window, nonverbal. The CAT scan of the head showed acute left basal ganglia hemorrhagic stroke. She was intubated by an ER attending for an airway protection admitted to ICU. 08/13 events overnight, the ICH sites remains the same. 08/14: BP control acceptable. Moves 4 limbs to stimulation, does not follow commands. 08/15: Glucose uncontrolled; start bid levemir and SSI. Objective Vital Signs Date Time Temp Pulse Resp B/P Pulse Ox O2 Delivery O2 Flow Rate FiO2 08/15/16 06:00 91 08/15/16 04:02 98 35 08/15/16 04:00 97.7 19 140/67 08/14/16 19:00 Mechanical Ventilator 08/14/16 07:00 2.00 Intake and Output 08/14/16 08/14/16 08/15/16 08:00 16:00 00:00 Intake Total 1230 ml 1464 ml 1726 ml Output Total 400 ml 300 ml 400 ml Balance 830 ml 1164 ml 1326 ml Result Diagram: 08/14/16 0425 08/15/16 0400 Imaging Last [address] 08/12/161718 Signed Impressions: Service Date/Time: Friday, August 12, 2016 17:28 - CONCLUSION: 1. Focal acute hemorrhagic infarct involving the left thalamic area measuring 2.3 cm in diameter. This is most likely a hypertensive infarct. 2. Bilateral chronic white matter changes. Arcenio Cuenca MD Chest X-Ray 08/12/161718 Signed Impressions: Service Date/Time: Friday, August 12, 2016 18:09 - CONCLUSION: 1. Tip of the endotracheal tube in the right mainstem bronchus origin. Suggest retracting it 2-3 cm. 2. Left lower lobe infiltrate. 3. Cardiomegaly. Benito Blanco Jr., MD Objective Remarks GENERAL: Middle age patient. SKIN: Warm and dry. HEAD: Normocephalic. PERRL, 2 mm. EYES: No scleral icterus. No injection or drainage. NECK: Supple, trachea midline.Orally intubated. CARDIOVASCULAR: Regular rate and rhythm without murmurs, gallops, or rubs. No JVD. RESPIRATORY: Breath sounds equal bilaterally. No accessory muscle use. GASTROINTESTINAL: Abdomen soft, non-tender, nondistended. BS active. MUSCULOSKELETAL: No cyanosis, or edema. Well perfused. BACK: Nontender without obvious deformity. No CVA tenderness. EXTREMITIES: No clubbing cyanosis or edema. Neuro: Moves 4 limbs. Pupils 2 mm, reactive A/P Assessment and Plan Respiratory failure - Intubated for an airway protection - ICH remains the same - SBT today Acute hemorrhagic basal ganglia stroke - Due to uncontrolled blood pressure - Continue Neuro checks per unit protocol - Repeated CT today without changes in size of ICH - Neurosurgery consult pending, - Coags normal - Blood pressure control - SBP goal less 160 Hypertension - Cardene drip to keep SBP less than 160 - Labetalol and hydralazine when necessary - Add scheduled meds Diabetes mellitus - Hold glipizide in the ICU - Insulin sliding scale - Start levemir BID DVT GI prophylaxis - Teds SCDs - No pharmacological DVT prophylaxis due to acute ICH - Pepcid Overall impression: Critically ill with acute intracranial hemorrhage. Unable to wean from ventilator. Glucose control poor. No neurological improvement. Critical Care 34 mins Sanford Lilly MD Aug 15, 2016 07:29
[2016-08-15] MEDS ORDERED: GLUCAGON 1 MG/ML VIAL OTHER PRN (07:30)
[2016-08-15] MEDS ORDERED: DEXTROSE 50% IN WATER 50 ML VIAL(D50) IV PRN (07:30)
[2016-08-15] MEDS: METOPROLOL TARTRATE 50 MG TAB PO SCH ×2 (09:00→21:21)
[2016-08-15] MEDS: DOCUSATE SODIUM 50 MG/SENNA 8.6 MG TAB PO SCH ×2 (09:00→21:21)
[2016-08-15] MEDS: SODIUM CHLORIDE 0.9% FLUSH 10 ML FLUSH SCH ×2 (09:01→21:00)
[2016-08-15] MEDS: FAMOTIDINE 20 MG/2 ML VIAL IV PUSH SCH ×2 (09:01→21:21)
[2016-08-15] MEDS: INSULIN ASPART SUPPLEMENTAL SCALE SQ SCH ×3 (09:29→20:00)
[2016-08-15] MEDS: INSULIN DETEMIR 100 UNITS/ML VIAL SQ SCH ×2 (09:29→21:00)
--- NOTE | 2016-08-15 10:35 | HHI.NSPN ---
Note Status Status: Progress Note Interval History Interval History Ms. Richey is a 56-year-old female who presents to [place] ED with altered mental status and right side weakness. On arrival her blood pressure in chart was 235/115. Her CT scan of the head showed acute left basal ganglia hemorrhagic stroke. She was intubated by an ER attending for an airway protection admitted to ICU. She is sedated. Does not open eyes or follow commands. On Cardene drip for blood pressure control. 08/14: f/u CT Head 08/13 showed stable findings. With angioedema. Intubated and sedated. 08/15: Intubated, sedation off since yesterday. Does not open eyes or follow commands Labs, Micro, & Vital Signs Results Date Time Temp Pulse Resp B/P Pulse Ox O2 Delivery O2 Flow Rate FiO2 08/15/16 07:52 100 35 08/15/16 06:00 91 08/15/16 04:02 98 35 08/15/16 04:00 97.7 90 19 99 140/67 08/15/16 04:00 92 08/15/16 04:00 35 08/15/16 02:00 82 08/15/16 01:02 98 35 08/15/16 00:00 35 08/15/16 00:00 97.4 75 16 99 115/57 08/15/16 00:00 75 08/14/16 22:00 82 08/14/16 20:00 75 08/14/16 20:00 35 08/14/16 20:00 97.6 75 16 100 128/60 08/14/16 19:40 100 35 08/14/16 19:00 100 Mechanical Ventilator 35 08/14/16 18:00 74 08/14/16 16:00 35 08/14/16 16:00 68 08/14/16 16:00 98.4 68 28 116/58 100 08/14/16 15:22 100 35 08/14/16 14:00 70 08/14/16 12:42 100 35 08/14/16 12:42 35 08/14/16 12:00 98.3 72 16 143/71 100 08/14/16 12:00 64 08/14/16 12:00 35 08/14/16 11:41 100 35 08/15/16 07:00 Intake Total 4132 ml Output Total 1010 ml Balance 3122 ml Constitutional Vital Signs Date Time Temp Pulse Resp B/P Pulse Ox O2 Delivery O2 Flow Rate FiO2 08/15/16 07:52 100 35 08/15/16 06:00 91 08/15/16 04:02 98 35 08/15/16 04:00 97.7 90 19 99 140/67 08/15/16 04:00 92 08/15/16 04:00 35 08/15/16 02:00 82 08/15/16 01:02 98 35 08/15/16 00:00 35 08/15/16 00:00 97.4 75 16 99 115/57 08/15/16 00:00 75 08/14/16 22:00 82 08/14/16 20:00 75 08/14/16 20:00 35 08/14/16 20:00 97.6 75 16 100 128/60 08/14/16 19:40 100 35 08/14/16 19:00 100 Mechanical Ventilator 35 08/14/16 18:00 74 08/14/16 16:00 35 08/14/16 16:00 68 08/14/16 16:00 98.4 68 28 116/58 100 08/14/16 15:22 100 35 08/14/16 14:00 70 08/14/16 12:42 100 35 08/14/16 12:42 35 08/14/16 12:00 98.3 72 16 143/71 100 08/14/16 12:00 64 08/14/16 12:00 35 08/14/16 11:41 100 35 08/15/16 07:00 Intake Total 4132 ml Output Total 1010 ml Balance 3122 ml Review of Systems/Exam Exam Ms. Richey is intubated, sedation off since yesterday. She does not open eyes. Cranial Nerves: Pupils 2 mm equal, round. Eyes appear conjugated. Face sensation, olfaction, visual young, and hearing cannot be adequately assessed due to his neurological condition. Neck: soft supple Angioedema of lip and tongue Motor: His muscle tone and bulk are normal. She withdraws to pain to in upper extremities bilaterally. Reflexes: Deep tendon reflexes are 1+ and symmetrical in the biceps, triceps, and brachioradialis, bilaterally, in the upper extremities. In the lower extremities, the patellar and ankles are 1+, bilaterally. Bilateral plantar response neutral. Sensory: On examination there is response to painful stimuli, withdrawing in both upper and lower extremities to pain Cerebellar: cannot assess due to clinical condition Medications Current Medications Current Medications Medications (Trade) Dose Ordered Sig/Jones Route PRN Reason Start Time Stop Time Status Last Admin Dose Admin Midazolam HCl (Versed Inj) 100 ml @ 0 mls/hr CONTINUOUS IV 08/12/16 18:15 08/14/16 09:45 Metoprolol Tartrate 50 mg 50 mg BID PO 08/12/16 21:00 08/15/16 09:00 Sodium Chloride (NS 1000 ml Inj) 1,000 ml @ 84 mls/hr [id number] IV 08/12/16 19:00 08/15/16 05:41 Sodium Chloride (NS Flush) 2 ml UNSCH PRN .XX FLUSH AFTER USING IV ACCESS 08/12/16 18:30 Sodium Chloride (NS Flush) 2 ml BID .XX 08/12/16 21:00 08/15/16 09:01 Acetaminophen (Tylenol) 650 mg Q6H PRN PO PAIN 1-10 AND/OR FEVER >101F 08/12/16 18:30 Morphine Sulfate (Morphine Inj) 2 mg Q2H PRN IV PAIN SCALE 6 TO 10 08/12/16 18:30 Famotidine (Pepcid Inj) 10 mg Q12HR IV PUSH 08/12/16 21:00 08/15/16 09:01 Miscellaneous Information 1 Q361D XX 08/12/16 18:30 Chlorhexidine Gluconate (Chlorhexidine 2% Cloth) 3 pack Taper DAILY@04 TOP 08/13/16 04:00 08/09/17 03:59 08/15/16 04:00 Chlorhexidine Gluconate (Chlorhexidine 2% Cloth) 3 pack UNSCH PRN TOP HYGIENIC CARE 08/12/16 18:30 Senna/Docusate Sodium (Adele-Colace) 1 tab BID PO 08/12/16 21:00 08/15/16 09:00 Magnesium Hydroxide (Milk Of Magnesia Liq) 30 ml Q12H PRN PO MILD - MODERATE CONSTIPATION 08/12/16 18:30 Sennosides (Senokot) 17.2 mg Q12H PRN PO MODERATE - SEVERE CONSTIPATION 08/12/16 18:30 Bisacodyl (Dulcolax Supp) 10 mg DAILY PRN RECTAL SEVERE CONSITIPATION 08/12/16 18:30 Lactulose 30 ml 30 ml DAILY PRN PO SEVERE CONSITIPATION 08/12/16 18:30 Propofol 100 ml @ 0 mls/hr TITRATE IV 08/12/16 18:30 08/14/16 09:45 Nicardipine HCl/ Sodium Chloride (Cardene Inj/NS 250 ml Inj) 260 ml @ 0 mls/hr TITRATE IV 08/12/16 20:30 08/15/16 09:32 Hydralazine HCl (Apresoline Inj) 20 mg Q4H PRN IV PUSH SBP>160, DBP>90 08/12/16 20:30 08/15/16 03:12 Labetalol HCl (Trandate Inj) 10 mg Q4H PRN IV PUSH SBP>160, DBP>90 08/12/16 20:30 08/15/16 00:56 Insulin Detemir (Levemir Inj) 10 units Q12HR SQ 08/15/16 09:00 08/15/16 09:29 Dextrose (D50w (Vial) Inj) 50 ml UNSCH PRN IV HYPOGLYCEMIA-SEE COMMENTS 08/15/16 07:30 Glucagon (Glucagon Inj) 1 mg UNSCH PRN OTHER HYPOGLYCEMIA-SEE COMMENTS 08/15/16 07:30 Insulin Aspart (NovoLOG SUPPLEMENTAL SCALE) 1 Q6H SQ 08/15/16 08:00 08/15/16 09:29 Medical Decision Making MDM Remarks 56 y/o female with left basal ganglia bleed, most likely hypertensive in etiology. stable f/u CT Head Plan Plan Remarks obtain EEG cont neuro checks cont critical care management, CPAP trials and vent weaning nonchemical dvt prophylaxis with JASSs and Cinthia Mcintosh Aug 15, 2016 10:35
[2016-08-16] VITALS (19 sets, daily range): BP systolic 130–174; BP diastolic 56–72; PULSE 67–92; RESP 10–16; TEMP 97.8–98.2; O2SAT 99–100
[2016-08-16] MEDS: INSULIN ASPART SUPPLEMENTAL SCALE SQ SCH ×4 (02:21→20:00)
[2016-08-16] MEDS: CHLORHEXIDINE GLUCONATE 2 % 1 PACK (2 CLOTHS) TOP SCH (02:21)
[2016-08-16] MEDS: niCARdipine INJ 25 MG in SODIUM CHLOR 0.9% 250 ML INJ 250 ML IV SCH ×6 (03:31→21:25)
[2016-08-16] MEDS: hydrALAZINE HCL 20 MG/ML VIAL IV PUSH PRN ×2 (03:32→10:40)
[2016-08-16 05:42] LABS: AUTOMATED NEUTROPHIL # 17.7 TH/MM3 (1.8-7.7); BASOPHIL # 0.1 TH/MM3 (0-0.2); BASOPHIL % 0.6 % (0.0-2.0); EOSINOPHIL # 0.1 TH/MM3 (0-0.4); EOSINOPHIL % 0.5 % (0.0-4.0); HEMATOCRIT 30.7 % (35.0-46.0); HEMO FLAGS DIFF FINAL; LYMPH % 6.4 % (9.0-44.0); LYMPHOCYTE # 1.3 TH/MM3 (1.0-4.8); MEAN CELL VOLUME 86.5 FL (80.0-100.0); MEAN CORPUSCULAR HEMOGLOBIN 26.8 PG (27.0-34.0); MEAN CORPUSCULAR HGB CONC 30.9 % (32.0-36.0); MONO % 5.6 % (0.0-8.0); NEUT % 86.9 % (16.0-70.0); PLATELET COUNT 248 TH/MM3 (150-450); RED BLOOD COUNT 3.55 MIL/MM3 (4.00-5.30); RED CELL DISTRIBUTION WIDTH 13.8 % (11.6-17.2); WHITE BLOOD COUNT 20.3 TH/MM3 (4.0-11.0)
[2016-08-16 05:50] LABS: BICARBONATE 14.4 MEQ/L (21.0-32.0)
[2016-08-16] MEDS: MORPHINE SULFATE 4 MG/ML INJ IV PRN ×5 (06:15→20:21)
[2016-08-16] MEDS: SODIUM CHLOR 0.9% 1000 ML INJ 1,000 ML IV SCH (06:19)
--- NOTE | 2016-08-16 07:36 | HHI.CCPN ---
Subjective Remarks/Hospital Course 56-year-old female presents with last seen normal at 5:30am. On arrival to emergency department the patient has right sided weakness but outside stroke alert window, nonverbal. The CAT scan of the head showed acute left basal ganglia hemorrhagic stroke. She was intubated by an ER attending for an airway protection admitted to ICU. 08/13 events overnight, the ICH sites remains the same. 08/14: BP control acceptable. Moves 4 limbs to stimulation, does not follow commands. 08/15: Glucose uncontrolled; start bid levemir and SSI. 08/16: Glucose intolerance persists. Increase levemir. Increase HTN meds, add schedules hydralazine. Objective Vital Signs Date Time Temp Pulse Resp B/P Pulse Ox O2 Delivery O2 Flow Rate FiO2 08/16/16 06:00 67 08/16/16 04:03 100 35 08/16/16 04:00 97.8 16 137/58 08/15/16 19:00 Mechanical Ventilator 08/14/16 07:00 2.00 Intake and Output 08/15/16 08/15/16 08/16/16 08:00 16:00 00:00 Intake Total 942 ml 1228 ml 735 ml Output Total 310 ml 650 ml 800 ml Balance 632 ml 578 ml -65 ml Result Diagram: 08/16/16 0530 08/16/16 0530 Imaging Last [address] 08/12/161718 Signed Impressions: Service Date/Time: Friday, August 12, 2016 17:28 - CONCLUSION: 1. Focal acute hemorrhagic infarct involving the left thalamic area measuring 2.3 cm in diameter. This is most likely a hypertensive infarct. 2. Bilateral chronic white matter changes. Arcenio Cuenca MD Chest X-Ray 08/12/161718 Signed Impressions: Service Date/Time: Friday, August 12, 2016 18:09 - CONCLUSION: 1. Tip of the endotracheal tube in the right mainstem bronchus origin. Suggest retracting it 2-3 cm. 2. Left lower lobe infiltrate. 3. Cardiomegaly. Benito Blanco Jr., MD Objective Remarks GENERAL: Middle age patient. SKIN: Warm and dry. HEAD: Normocephalic. PERRL, 2 mm. EYES: No scleral icterus. No injection or drainage. NECK: Supple, trachea midline.Orally intubated. CARDIOVASCULAR: Regular rate and rhythm without murmurs, gallops, or rubs. No JVD. RESPIRATORY: Breath sounds equal bilaterally. No accessory muscle use. GASTROINTESTINAL: Abdomen soft, non-tender, nondistended. BS active. MUSCULOSKELETAL: No cyanosis, or edema. Well perfused. BACK: Nontender without obvious deformity. No CVA tenderness. EXTREMITIES: No clubbing cyanosis or edema. Neuro: Moves 4 limbs but not to command. Pupils 2 mm, reactive. Opens eyes spontaneously. A/P Assessment and Plan Respiratory failure - Intubated for an airway protection - ICH remains the same - SBT today Acute hemorrhagic basal ganglia stroke - Due to uncontrolled blood pressure - Continue Neuro checks per unit protocol - Repeated CT today without changes in size of ICH - Neurosurgery consult pending, - Coags normal - Blood pressure control - SBP goal less 160 Hypertension - Cardene drip to keep SBP less than 160 - Labetalol and hydralazine when necessary - Add scheduled meds Diabetes mellitus - Hold glipizide in the ICU - Insulin sliding scale - Start levemir BID, increase DVT GI prophylaxis - Teds SCDs - No pharmacological DVT prophylaxis due to acute ICH - Pepcid Overall impression: Critically ill with acute intracranial hemorrhage. Unable to wean from ventilator. Glucose control poor. No neurological improvement. Critical Care 38 mins Sanford Lilly MD Aug 16, 2016 07:36
--- NOTE | 2016-08-16 07:45 | MG ---
cc: NAVEEN SANDRA MD Lab No: Date:08/15/2016 Age: Sex: F Race: DATE OF 01/15/1952 REFERRING PHYSICIAN <<0:18>> , [place] READING PHYSICIAN Dr. Sandra. PAST MEDICAL HISTORY: Altered mental status, right-sided weakness, acute basal ganglia hemorrhagic stroke, diabetes, history of stroke 2010. MEDICATIONS Lopressor. Nicardipine Trandate DESCRIPTION There is generalized background slowing and intermittent slowing. In the theta range, intermittent burst suppression pattern, every three seconds, intermittent. Excessive movement artifact. There were no epileptiform discharges or electrographic seizures. Photic stimulation did not elicit driving response. INTERPRETATION This is an abnormal electroencephalogram with intermittent low voltage and burst suppression pattern, no electrographic seizures were noted. Naveen Sandra MD [facility]/ /12:33 AM /7:19 AM [facility]ENTERAyan
[2016-08-16] MEDS: LABETALOL HCL 100 MG/20 ML VIAL IV PUSH PRN ×2 (09:01→18:43)
[2016-08-16] MEDS: METOPROLOL TARTRATE 50 MG TAB PO SCH ×2 (09:13→19:46)
[2016-08-16] MEDS: hydrALAZINE HCL 100 MG TAB PO SCH ×3 (09:13→21:25)
[2016-08-16] MEDS: SODIUM CHLORIDE 0.9% FLUSH 10 ML FLUSH SCH ×2 (09:13→19:46)
[2016-08-16] MEDS: DOCUSATE SODIUM 50 MG/SENNA 8.6 MG TAB PO SCH ×2 (09:13→19:46)
[2016-08-16] MEDS: FAMOTIDINE 20 MG/2 ML VIAL IV PUSH SCH ×2 (09:13→19:46)
--- NOTE | 2016-08-16 09:15 | RADRPT ---
EXAM DATE/TIME: 08/16/2016 08:05 [place] COMPARISON: No previous studies available for comparison. INDICATIONS : Evaluate for OG tube placement. MEDICAL HISTORY : None. SURGICAL HISTORY : None. ENCOUNTER: Initial ACUITY: 1 day PAIN SCORE: Non-responsive. LOCATION: Abdomen FINDINGS: Single AP view of the abdomen. Nasogastric tube tip is in the stomach. Side-port is in the region of the gastroesophageal junction. Paucity of bowel gas. CONCLUSION: Is a chest tube tip in stomach. Side port in the region of the gastroesophageal junction. Jhony Kirkpatrick MD on August 16, 2016 at 9:13 Board Certified Radiologist. This report was verified electronically.
[2016-08-16] MEDS: INSULIN DETEMIR 100 UNITS/ML VIAL SQ SCH ×2 (10:19→20:20)
--- NOTE | 2016-08-16 12:35 | HHI.NSPN ---
(Cinthia Rosas) Note Status Status: Progress Note (Cinthia Rosas) Interval History Interval History Ms. Richey is a 56-year-old female who presents to [place] ED with altered mental status and right side weakness. On arrival her blood pressure in chart was 235/115. Her CT scan of the head showed acute left basal ganglia hemorrhagic stroke. She was intubated by an ER attending for an airway protection admitted to ICU. She is sedated. Does not open eyes or follow commands. On Cardene drip for blood pressure control. 08/14: f/u CT Head 08/13 showed stable findings. With angioedema. Intubated and sedated. 08/15: sedation off, not opening eyes or following commands. 08/16: no significant changes to neuro checks overnight, slightly ?opened eyes, appears to be intermittently moving more (Cinthia Rosas) Labs, Micro, & Vital Signs Results Date Time Temp Pulse Resp B/P Pulse Ox O2 Delivery O2 Flow Rate FiO2 08/16/16 11:33 99 35 08/16/16 08:01 100 35 08/16/16 08:00 89 08/16/16 07:00 100 Mechanical Ventilator 35 08/16/16 06:50 35 08/16/16 06:00 67 08/16/16 04:03 100 35 08/16/16 04:00 91 08/16/16 04:00 97.8 88 16 137/58 100 08/16/16 02:00 89 08/16/16 00:29 100 35 08/16/16 00:00 84 08/16/16 00:00 97.8 84 16 130/56 100 08/16/16 00:00 35 08/15/16 22:21 97.8 85 18 156/68 100 08/15/16 22:21 35 08/15/16 22:21 85 08/15/16 21:16 100 35 08/15/16 19:00 100 Mechanical Ventilator 35 08/15/16 18:00 75 08/15/16 16:00 35 08/15/16 16:00 88 08/15/16 16:00 97.8 88 27 154/79 99 08/15/16 15:44 100 35 08/15/16 14:00 77 08/16/16 07:00 Intake Total 3433 ml Output Total 2250 ml Balance 1183 ml Constitutional Vital Signs Date Time Temp Pulse Resp B/P Pulse Ox O2 Delivery O2 Flow Rate FiO2 08/16/16 11:33 99 35 08/16/16 08:01 100 35 08/16/16 08:00 89 08/16/16 07:00 100 Mechanical Ventilator 35 08/16/16 06:50 35 08/16/16 06:00 67 08/16/16 04:03 100 35 08/16/16 04:00 91 08/16/16 04:00 97.8 88 16 137/58 100 08/16/16 02:00 89 08/16/16 00:29 100 35 08/16/16 00:00 84 08/16/16 00:00 97.8 84 16 130/56 100 08/16/16 00:00 35 08/15/16 22:21 97.8 85 18 156/68 100 08/15/16 22:21 35 08/15/16 22:21 85 08/15/16 21:16 100 35 08/15/16 19:00 100 Mechanical Ventilator 35 08/15/16 18:00 75 08/15/16 16:00 35 08/15/16 16:00 88 08/15/16 16:00 97.8 88 27 154/79 99 08/15/16 15:44 100 35 08/15/16 14:00 77 08/16/16 07:00 Intake Total 3433 ml Output Total 2250 ml Balance 1183 ml (Cinthia Rosas) Review of Systems/Exam Exam Ms. Richey is intubated, no sedatives. There is some slight eye opening seen but she doesn't follow commands. Cranial Nerves: Pupils 2 mm equal, round. Face musculature appeared symmetrical at rest. Angioedema of lip and tongue Motor: intermittent spontaneous movements seen Reflexes:? right Babinski response (Cinthia Rosas) Medications Current Medications Current Medications Medications (Trade) Dose Ordered Sig/Jones Route PRN Reason Start Time Stop Time Status Last Admin Dose Admin Midazolam HCl (Versed Inj) 100 ml @ 0 mls/hr CONTINUOUS IV 08/12/16 18:15 08/14/16 09:45 Metoprolol Tartrate 50 mg 50 mg BID PO 08/12/16 21:00 08/16/16 09:13 Sodium Chloride (NS 1000 ml Inj) 1,000 ml @ 40 mls/hr Q24H IV 08/12/16 19:00 08/16/16 06:19 Sodium Chloride (NS Flush) 2 ml UNSCH PRN .XX FLUSH AFTER USING IV ACCESS 08/12/16 18:30 Sodium Chloride (NS Flush) 2 ml BID .XX 08/12/16 21:00 08/16/16 09:13 Acetaminophen (Tylenol) 650 mg Q6H PRN PO PAIN 1-10 AND/OR FEVER >101F 08/12/16 18:30 Morphine Sulfate (Morphine Inj) 2 mg Q2H PRN IV PAIN SCALE 6 TO 10 08/12/16 18:30 08/16/16 09:13 Famotidine (Pepcid Inj) 10 mg Q12HR IV PUSH 08/12/16 21:00 08/16/16 09:13 Miscellaneous Information 1 Q361D XX 08/12/16 18:30 Chlorhexidine Gluconate (Chlorhexidine 2% Cloth) 3 pack Taper DAILY@04 TOP 08/13/16 04:00 08/09/17 03:59 08/16/16 02:21 Chlorhexidine Gluconate (Chlorhexidine 2% Cloth) 3 pack UNSCH PRN TOP HYGIENIC CARE 08/12/16 18:30 Senna/Docusate Sodium (Adele-Colace) 1 tab BID PO 08/12/16 21:00 08/16/16 09:13 Magnesium Hydroxide (Milk Of Magnesia Liq) 30 ml Q12H PRN PO MILD - MODERATE CONSTIPATION 08/12/16 18:30 Sennosides (Senokot) 17.2 mg Q12H PRN PO MODERATE - SEVERE CONSTIPATION 08/12/16 18:30 Bisacodyl (Dulcolax Supp) 10 mg DAILY PRN RECTAL SEVERE CONSITIPATION 08/12/16 18:30 Lactulose 30 ml 30 ml DAILY PRN PO SEVERE CONSITIPATION 08/12/16 18:30 Propofol 100 ml @ 0 mls/hr TITRATE IV 08/12/16 18:30 08/14/16 09:45 Nicardipine HCl/ Sodium Chloride (Cardene Inj/NS 250 ml Inj) 260 ml @ 0 mls/hr TITRATE IV 08/12/16 20:30 08/16/16 10:41 Hydralazine HCl (Apresoline Inj) 20 mg Q4H PRN IV PUSH SBP>160, DBP>90 08/12/16 20:30 08/16/16 10:40 Labetalol HCl (Trandate Inj) 10 mg Q4H PRN IV PUSH SBP>160, DBP>90 08/12/16 20:30 08/16/16 09:01 Dextrose (D50w (Vial) Inj) 50 ml UNSCH PRN IV HYPOGLYCEMIA-SEE COMMENTS 08/15/16 07:30 Glucagon (Glucagon Inj) 1 mg UNSCH PRN OTHER HYPOGLYCEMIA-SEE COMMENTS 08/15/16 07:30 Insulin Aspart (NovoLOG SUPPLEMENTAL SCALE) 1 Q6H SQ 08/15/16 08:00 08/16/16 02:21 Insulin Detemir (Levemir Inj) 20 units Q12HR SQ 08/16/16 09:00 08/16/16 10:19 Hydralazine HCl (Apresoline) 100 mg Q8HR PO 08/16/16 07:30 08/16/16 09:13 (Cinthia Rosas) Medical Decision Making MDM Remarks 56 y/o female with left basal ganglia bleed, most likely hypertensive in etiology, f/u CT Head 08/13 stable ICH Encephalopathy, EEG 08/15/16 neg for seizures (Cinthia Rosas) Plan Plan Remarks cont neuro checks cont critical care mgt (Cinthia Rosas) Attending Statement The exam, history, and the medical decision-making described in the above note were completed with the assistance of the mid-level provider. I reviewed and agree with the findings presented. I attest that I had a [id number] encounter with the patient on the same day, and personally performed and documented my assessment and findings in the medical record. (Chris Tran MD) Cinthia Rosas Aug 16, 2016 12:35 Chris Tran MD Aug 16, 2016 20:25 Cinthia Rosas Aug 16, 2016 12:35 Chris Tran MD Aug 16, 2016 20:25
[2016-08-17] VITALS (20 sets, daily range): BP systolic 134–182; BP diastolic 64–78; PULSE 66–91; RESP 9–20; TEMP 97.8–98.4; O2SAT 99–100
[2016-08-17] MEDS: INSULIN ASPART SUPPLEMENTAL SCALE SQ SCH ×5 (02:00→20:55)
[2016-08-17] MEDS: niCARdipine INJ 25 MG in SODIUM CHLOR 0.9% 250 ML INJ 250 ML IV SCH ×10 (02:42→21:20)
[2016-08-17] MEDS: hydrALAZINE HCL 20 MG/ML VIAL IV PUSH PRN ×2 (03:47→17:24)
[2016-08-17] MEDS: CHLORHEXIDINE GLUCONATE 2 % 1 PACK (2 CLOTHS) TOP SCH (04:00)
[2016-08-17] MEDS: SODIUM CHLOR 0.9% 1000 ML INJ 1,000 ML IV SCH (06:05)
[2016-08-17] MEDS: hydrALAZINE HCL 100 MG TAB PO SCH ×3 (06:05→22:51)
[2016-08-17 07:24] LABS: BICARBONATE 14.3 MEQ/L (21.0-32.0); POTASSIUM 4.4 MEQ/L (3.5-5.1)
[2016-08-17] MEDS: LABETALOL HCL 100 MG/20 ML VIAL IV PUSH PRN ×2 (07:49→12:35)
[2016-08-17] MEDS: METOPROLOL TARTRATE 50 MG TAB PO SCH ×2 (08:20→20:30)
[2016-08-17] MEDS: FAMOTIDINE 20 MG/2 ML VIAL IV PUSH SCH ×2 (08:20→20:31)
[2016-08-17] MEDS: DOCUSATE SODIUM 50 MG/SENNA 8.6 MG TAB PO SCH ×2 (08:20→20:30)
[2016-08-17] MEDS: SODIUM CHLORIDE 0.9% FLUSH 10 ML FLUSH SCH ×2 (08:21→20:31)
[2016-08-17] MEDS: INSULIN DETEMIR 100 UNITS/ML VIAL SQ SCH ×2 (08:25→20:55)
[2016-08-17] MEDS ORDERED: GLUCAGON 1 MG/ML VIAL OTHER PRN (09:15)
--- NOTE | 2016-08-17 09:19 | HHI.CCPN ---
Subjective Remarks/Hospital Course 56-year-old female presents with last seen normal at 5:30am. On arrival to emergency department the patient has right sided weakness but outside stroke alert window, nonverbal. The CAT scan of the head showed acute left basal ganglia hemorrhagic stroke. She was intubated by an ER attending for an airway protection admitted to ICU. 08/13 events overnight, the ICH sites remains the same. 08/14: BP control acceptable. Moves 4 limbs to stimulation, does not follow commands. 08/15: Glucose uncontrolled; start bid levemir and SSI. 08/16: Glucose intolerance persists. Increase levemir. Increase HTN meds, add schedules hydralazine. 08/17: Glucose control problematic. Add more oral BP control. Largely unresponsive. Objective Vital Signs Date Time Temp Pulse Resp B/P Pulse Ox O2 Delivery O2 Flow Rate FiO2 08/17/16 07:07 100 35 08/17/16 07:00 Mechanical Ventilator 08/17/16 06:00 70 08/17/16 04:00 98.3 20 170/78 08/14/16 07:00 2.00 Intake and Output 08/16/16 08/16/16 08/17/16 08:00 16:00 00:00 Intake Total 1470 ml 1339 ml 1566 ml Output Total 800 ml 700 ml 600 ml Balance 670 ml 639 ml 966 ml Result Diagram: 08/16/16 0530 08/17/16 0618 Imaging Last [address] 08/12/161718 Signed Impressions: Service Date/Time: Friday, August 12, 2016 17:28 - CONCLUSION: 1. Focal acute hemorrhagic infarct involving the left thalamic area measuring 2.3 cm in diameter. This is most likely a hypertensive infarct. 2. Bilateral chronic white matter changes. Arcenio Cuenca MD Chest X-Ray 08/12/161718 Signed Impressions: Service Date/Time: Friday, August 12, 2016 18:09 - CONCLUSION: 1. Tip of the endotracheal tube in the right mainstem bronchus origin. Suggest retracting it 2-3 cm. 2. Left lower lobe infiltrate. 3. Cardiomegaly. Benito Blanco Jr., MD Objective Remarks GENERAL: Middle age patient. SKIN: Warm and dry. HEAD: Normocephalic. PERRL, 2 mm. EYES: No scleral icterus. No injection or drainage. NECK: Supple, trachea midline.Orally intubated. CARDIOVASCULAR: Regular rate and rhythm without murmurs, gallops, or rubs. No JVD. RESPIRATORY: Breath sounds equal bilaterally. No accessory muscle use. GASTROINTESTINAL: Abdomen soft, non-tender, nondistended. BS active. MUSCULOSKELETAL: No cyanosis, or edema. Well perfused. BACK: Nontender without obvious deformity. No CVA tenderness. EXTREMITIES: No clubbing cyanosis or edema. Neuro: Withdraws 4 limbs but not to command. Pupils 2 mm, reactive. Opens eyes spontaneously. A/P Assessment and Plan Respiratory failure - Intubated for an airway protection - ICH remains the same - SBT today Acute hemorrhagic basal ganglia stroke - Due to uncontrolled blood pressure - Continue Neuro checks per unit protocol - Repeated CT today without changes in size of ICH - Neurosurgery consult pending, - Coags normal - Blood pressure control - SBP goal less 160 Hypertension - Cardene drip to keep SBP less than 160 - Labetalol and hydralazine when necessary - Add scheduled meds --Start oral meds. Diabetes mellitus - Hold glipizide in the ICU - Insulin sliding scale - Start levemir BID, increase to 30 bid DVT GI prophylaxis - Teds SCDs - No pharmacological DVT prophylaxis due to acute ICH - Pepcid Overall impression: Critically ill with acute intracranial hemorrhage. Unable to wean from ventilator. Glucose control poor. No neurological improvement. Sanford Lilly MD Aug 17, 2016 09:19
[2016-08-17] MEDS: amLODIPine BESYLATE 5 MG TAB PO SCH (10:03)
[2016-08-17] MEDS: SODIUM CHLORIDE 23.4% INJ 38.5 MEQ in WATER STERILE FOR INJ 1,000 ML IV SCH (10:03)
[2016-08-17] MEDS: HYDROCHLOROTHIAZIDE 25 MG TAB PO SCH (10:03)
[2016-08-17] MEDS: MORPHINE SULFATE 4 MG/ML INJ IV PRN ×2 (11:13)
--- NOTE | 2016-08-17 12:37 | HHI.NSPN ---
(Cinthia Rosas) Note Status Status: Progress Note (Cinthia Rosas) Interval History Interval History Ms. Richey is a 56-year-old female who presents to [place] ED with altered mental status and right side weakness. On arrival her blood pressure in chart was 235/115. Her CT scan of the head showed acute left basal ganglia hemorrhagic stroke. She was intubated by an ER attending for an airway protection admitted to ICU. She is sedated. Does not open eyes or follow commands. On Cardene drip for blood pressure control. 08/14: f/u CT Head 08/13 showed stable findings. With angioedema. Intubated and sedated. 08/15: sedation off, not opening eyes or following commands. 08/16: no significant changes to neuro checks overnight, slightly ?opened eyes, appears to be intermittently moving more 08/17: remains intubated, no acute events overnight (Cinthia Rosas) Labs, Micro, & Vital Signs Results Date Time Temp Pulse Resp B/P Pulse Ox O2 Delivery O2 Flow Rate FiO2 08/17/16 10:19 100 35 08/17/16 08:00 35 08/17/16 08:00 97.8 88 11 182/78 99 08/17/16 08:00 91 08/17/16 07:07 100 35 08/17/16 07:07 35 08/17/16 07:00 100 Mechanical Ventilator 35 08/17/16 06:00 70 08/17/16 04:00 86 08/17/16 04:00 35 08/17/16 04:00 98.3 86 20 170/78 100 08/17/16 03:20 100 35 08/17/16 02:00 79 08/17/16 01:20 100 35 08/17/16 00:00 97.8 78 20 150/68 100 08/17/16 00:00 78 08/17/16 00:00 35 08/16/16 22:29 100 35 08/16/16 22:00 69 08/16/16 21:00 35 08/16/16 20:00 35 08/16/16 20:00 98.1 92 10 174/72 100 08/16/16 20:00 92 08/16/16 19:41 100 35 08/16/16 19:00 100 Mechanical Ventilator 35 08/16/16 18:00 74 08/16/16 16:19 100 35 08/16/16 16:00 98.2 76 11 130/60 100 08/16/16 16:00 76 08/16/16 16:00 35 08/16/16 14:00 75 08/17/16 07:00 Intake Total 4452 ml Output Total 1950 ml Balance 2502 ml Constitutional Vital Signs Date Time Temp Pulse Resp B/P Pulse Ox O2 Delivery O2 Flow Rate FiO2 08/17/16 10:19 100 35 08/17/16 08:00 35 08/17/16 08:00 97.8 88 11 182/78 99 08/17/16 08:00 91 08/17/16 07:07 100 35 08/17/16 07:07 35 08/17/16 07:00 100 Mechanical Ventilator 35 08/17/16 06:00 70 08/17/16 04:00 86 08/17/16 04:00 35 08/17/16 04:00 98.3 86 20 170/78 100 08/17/16 03:20 100 35 08/17/16 02:00 79 08/17/16 01:20 100 35 08/17/16 00:00 97.8 78 20 150/68 100 08/17/16 00:00 78 08/17/16 00:00 35 08/16/16 22:29 100 35 08/16/16 22:00 69 08/16/16 21:00 35 08/16/16 20:00 35 08/16/16 20:00 98.1 92 10 174/72 100 08/16/16 20:00 92 08/16/16 19:41 100 35 08/16/16 19:00 100 Mechanical Ventilator 35 08/16/16 18:00 74 08/16/16 16:19 100 35 08/16/16 16:00 98.2 76 11 130/60 100 08/16/16 16:00 76 08/16/16 16:00 35 08/16/16 14:00 75 08/17/16 07:00 Intake Total 4452 ml Output Total 1950 ml Balance 2502 ml (Cinthia Rosas) Review of Systems/Exam Exam Ms. Richey is intubated, no sedatives. Not opening eyes, not following commands. Cranial Nerves: Pupils 2 mm equal, round. Face musculature appeared symmetrical at rest. Positive corneal reflex b/l Angioedema of lip and tongue Motor: spontaneous movements seen appears nonpurposeful. mild withdrawals to pain x 4 Reflexes: neutral response b/l Cerebellar: cannot assess due to clinical condition (Cinthia Rosas) Exam Ms. Richey is intubated, no sedatives. Not opening eyes, not following commands. Cranial Nerves: Pupils 2 mm equal, round. Face musculature appeared symmetrical at rest. Positive corneal reflex b/l Angioedema of lip and tongue Motor: spontaneous movements seen appears nonpurposeful. mild withdrawals to pain x 4 Reflexes: neutral response b/l Cerebellar: cannot assess due to clinical condition (Chris Tran MD) Medications Current Medications Current Medications Medications (Trade) Dose Ordered Sig/Jones Route PRN Reason Start Time Stop Time Status Last Admin Dose Admin Midazolam HCl (Versed Inj) 100 ml @ 0 mls/hr CONTINUOUS IV 08/12/16 18:15 08/14/16 09:45 Metoprolol Tartrate (Lopressor) 50 mg BID PO 08/12/16 21:00 08/17/16 08:20 Sodium Chloride (NS Flush) 2 ml UNSCH PRN .XX FLUSH AFTER USING IV ACCESS 08/12/16 18:30 Sodium Chloride (NS Flush) 2 ml BID .XX 08/12/16 21:00 08/17/16 08:21 Acetaminophen (Tylenol) 650 mg Q6H PRN PO PAIN 1-10 AND/OR FEVER >101F 08/12/16 18:30 Morphine Sulfate (Morphine Inj) 2 mg Q2H PRN IV PAIN SCALE 6 TO 10 08/12/16 18:30 08/17/16 11:13 Famotidine (Pepcid Inj) 10 mg Q12HR IV PUSH 08/12/16 21:00 08/17/16 08:20 Miscellaneous Information 1 Q361D XX 08/12/16 18:30 Chlorhexidine Gluconate (Chlorhexidine 2% Cloth) 3 pack Taper DAILY@04 TOP 08/13/16 04:00 08/09/17 03:59 6/4/17 04:00 Chlorhexidine Gluconate (Chlorhexidine 2% Cloth) 3 pack UNSCH PRN TOP HYGIENIC CARE 08/12/16 18:30 Senna/Docusate Sodium (Adele-Colace) 1 tab BID PO 08/12/16 21:00 08/17/16 08:20 Magnesium Hydroxide (Milk Of Magnidalmis Liq) 30 ml Q12H PRN PO MILD - MODERATE CONSTIPATION 08/12/16 18:30 Sennosides (Senokot) 17.2 mg Q12H PRN PO MODERATE - SEVERE CONSTIPATION 08/12/16 18:30 Bisacodyl (Dulcolax Supp) 10 mg DAILY PRN RECTAL SEVERE CONSITIPATION 08/12/16 18:30 Lactulose 30 ml 30 ml DAILY PRN PO SEVERE CONSITIPATION 08/12/16 18:30 Propofol 100 ml @ 0 mls/hr TITRATE IV 08/12/16 18:30 08/14/16 09:45 Nicardipine HCl/ Sodium Chloride (Cardene Inj/NS 250 ml Inj) 260 ml @ 0 mls/hr TITRATE IV 08/12/16 20:30 08/17/16 10:52 Hydralazine HCl (Apresoline Inj) 20 mg Q4H PRN IV PUSH SBP>160, DBP>90 08/12/16 20:30 08/17/16 03:47 Labetalol HCl (Trandate Inj) 10 mg Q4H PRN IV PUSH SBP>160, DBP>90 08/12/16 20:30 08/17/16 07:49 Dextrose (D50w (Vial) Inj) 50 ml UNSCH PRN IV HYPOGLYCEMIA-SEE COMMENTS 08/15/16 07:30 Glucagon (Glucagon Inj) 1 mg UNSCH PRN OTHER HYPOGLYCEMIA-SEE COMMENTS 08/15/16 07:30 Hydralazine HCl (Apresoline) 100 mg Q8HR PO 08/16/16 07:30 08/17/16 06:05 Insulin Detemir (Levemir Inj) 30 units Q12HR SQ 08/17/16 21:00 Dextrose (D50w (Vial) Inj) 50 ml UNSCH PRN IV HYPOGLYCEMIA-SEE COMMENTS 08/17/16 09:15 Glucagon 1 mg 1 mg UNSCH PRN OTHER HYPOGLYCEMIA-SEE COMMENTS 08/17/16 09:15 Sodium Chloride/ Sterile Water (Sodium Chloride 23.4% Inj/Sterile Water For Inj) 1,009.625 ml @ 42 mls/hr Q24H IV 08/17/16 09:15 08/17/16 10:03 Hydrochlorothiazide (Hydrodiuril) 25 mg DAILY PO 08/17/16 09:30 08/17/16 10:03 Lisinopril (Prinivil) 10 mg Q12HR PO 08/17/16 21:00 Amlodipine Besylate (Norvasc) 5 mg DAILY PO 08/17/16 09:30 08/17/16 10:03 (Cinthia Rosas) Medical Decision Making MDM Remarks 56 y/o female with left basal ganglia bleed, most likely hypertensive in etiology, f/u CT Head 08/13 stable ICH Encephalopathy, EEG 08/15/16 neg for seizures (Cinthia Rosas) Plan Plan Remarks cont neuro checks cont critical care mgt follow up neuro examination (Cinthia Rosas) Attending Statement Neuro. Continue neuro checks HTN. Continue with antihypertensives as needed angioedema related to NEGRITO inhibitors. 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 Wean mechanical ventilation. Continue aggressive pulmonary toilette, nasotracheal suction, and breathing treatments with nebulizers. PT and OT evaluation Nutrition. NPO Renal. monitor closely urine output, BUN and creatinine Endocrine. Monitor serial Acu checks and SSI as needed in detail ID monitor for signs of infection Protonix for stress ulcer prophylaxis Grady hose and SCD's for DVT prophylaxis The exam, history, and the medical decision-making described in the above note were completed with the assistance of the mid-level provider. I reviewed and agree with the findings presented. I attest that I had a [id number] encounter with the patient on the same day, and personally performed and documented my assessment and findings in the medical record. (Chris Tran MD) Cinthia Rosas Aug 17, 2016 12:37 Chris Tran MD Aug 17, 2016 18:31
[2016-08-17] MEDS: LISINOPRIL 10 MG TAB PO SCH (20:30)
[2016-08-17] MEDS ORDERED: SODIUM CHLORID 0.9% IV SCH (22:45)
[2016-08-17] MEDS ORDERED: NICARDIPINE IV SCH (22:45)
[2016-08-18] VITALS (19 sets, daily range): BP systolic 129–173; BP diastolic 56–85; PULSE 72–97; RESP 11–26; TEMP 98.6–99; O2SAT 99–100
[2016-08-18] MEDS: CHLORHEXIDINE GLUCONATE 2 % 1 PACK (2 CLOTHS) TOP SCH (04:09)
[2016-08-18] MEDS: hydrALAZINE HCL 100 MG TAB PO SCH ×3 (05:27→23:18)
[2016-08-18] MEDS: LABETALOL HCL 100 MG/20 ML VIAL IV PUSH PRN ×2 (05:28→19:59)
[2016-08-18 05:33] LABS: AUTOMATED NEUTROPHIL # 17.2 TH/MM3 (1.8-7.7); BASOPHIL # 0.1 TH/MM3 (0-0.2); BASOPHIL % 0.5 % (0.0-2.0); EOSINOPHIL # 0.2 TH/MM3 (0-0.4); EOSINOPHIL % 1.2 % (0.0-4.0); HEMATOCRIT 28.4 % (35.0-46.0); HEMO FLAGS DIFF FINAL; LYMPH % 4.1 % (9.0-44.0); LYMPHOCYTE # 0.8 TH/MM3 (1.0-4.8); MEAN CELL VOLUME 86.7 FL (80.0-100.0); MEAN CORPUSCULAR HEMOGLOBIN 26.9 PG (27.0-34.0); MONO % 5.2 % (0.0-8.0); PLATELET COUNT 195 TH/MM3 (150-450); RED BLOOD COUNT 3.28 MIL/MM3 (4.00-5.30); RED CELL DISTRIBUTION WIDTH 13.8 % (11.6-17.2); WHITE BLOOD COUNT 19.3 TH/MM3 (4.0-11.0)
[2016-08-18 05:51] LABS: POTASSIUM 4.6 MEQ/L (3.5-5.1)
[2016-08-18] MEDS: INSULIN ASPART SUPPLEMENTAL SCALE SQ SCH ×4 (06:29→22:28)
[2016-08-18] MEDS ORDERED: CLINDAMYCIN 600 MG/NS 100 ML IV SCH ×2 (06:30)
[2016-08-18] MEDS ORDERED: GENTAMICIN INJ 150 MG in SODIUM CHLORIDE 0.9% INJ 100 ML IV SCH (06:30)
[2016-08-18] MEDS: SODIUM CHLORIDE 23.4% INJ 38.5 MEQ in WATER STERILE FOR INJ 1,000 ML IV SCH (06:57)
[2016-08-18] MEDS: SODIUM CHLORIDE 0.9% FLUSH 10 ML FLUSH SCH ×2 (09:00→22:00)
[2016-08-18] MEDS: HYDROCHLOROTHIAZIDE 25 MG TAB PO SCH (09:38)
[2016-08-18] MEDS: FAMOTIDINE 20 MG/2 ML VIAL IV PUSH SCH ×2 (09:38→21:59)
[2016-08-18] MEDS: METOPROLOL TARTRATE 50 MG TAB PO SCH ×2 (09:38→22:01)
[2016-08-18] MEDS: LISINOPRIL 10 MG TAB PO SCH (09:39)
[2016-08-18] MEDS: amLODIPine BESYLATE 5 MG TAB PO SCH (09:39)
[2016-08-18] MEDS: DOCUSATE SODIUM 50 MG/SENNA 8.6 MG TAB PO SCH ×2 (09:39→21:59)
[2016-08-18] MEDS: INSULIN DETEMIR 100 UNITS/ML VIAL SQ SCH ×2 (09:41→22:28)
--- NOTE | 2016-08-18 11:52 | HHI.NSPN ---
(Cinthia Rosas) Note Status Status: Progress Note (Cinthia Rosas) Interval History Interval History Ms. Richey is a 56-year-old female who presents to [place] ED with altered mental status and right side weakness. On arrival her blood pressure in chart was 235/115. Her CT scan of the head showed acute left basal ganglia hemorrhagic stroke. She was intubated by an ER attending for an airway protection admitted to ICU. She is sedated. Does not open eyes or follow commands. On Cardene drip for blood pressure control. 08/14: f/u CT Head 08/13 showed stable findings. With angioedema. Intubated and sedated. 08/15: sedation off, not opening eyes or following commands. 08/16: no significant changes to neuro checks overnight, slightly ?opened eyes, appears to be intermittently moving more 08/17: remains intubated, no acute events overnight 08/18: minimal eye opening, not following commands. remains on cardene for bp control, and persistent severe angioedema. (Cinthia Rosas) Labs, Micro, & Vital Signs Results Date Time Temp Pulse Resp B/P Pulse Ox O2 Delivery O2 Flow Rate FiO2 08/18/16 07:42 100 30 08/18/16 06:00 72 08/18/16 04:00 73 08/18/16 04:00 98.8 73 11 129/56 100 08/18/16 04:00 30 08/18/16 03:59 100 30 08/18/16 02:00 78 08/18/16 01:09 99 30 08/18/16 00:00 30 08/18/16 00:00 80 08/18/16 00:00 98.9 80 24 173/77 99 08/17/16 22:25 100 30 08/17/16 22:00 68 08/17/16 20:00 98.4 86 12 150/66 100 08/17/16 20:00 86 08/17/16 20:00 30 08/17/16 19:39 100 35 08/17/16 19:00 100 Mechanical Ventilator 35 08/17/16 18:00 82 08/17/16 16:00 98.1 72 9 138/64 100 08/17/16 16:00 72 08/17/16 16:00 35 08/17/16 15:01 100 35 08/17/16 14:00 66 08/17/16 12:58 100 35 08/17/16 12:00 98.1 68 10 134/67 100 08/17/16 12:00 68 08/17/16 12:00 35 08/18/16 07:00 Intake Total 4460 ml Output Total 1725 ml Balance 2735 ml Constitutional Vital Signs Date Time Temp Pulse Resp B/P Pulse Ox O2 Delivery O2 Flow Rate FiO2 08/18/16 07:42 100 30 08/18/16 06:00 72 08/18/16 04:00 73 08/18/16 04:00 98.8 73 11 129/56 100 08/18/16 04:00 30 08/18/16 03:59 100 30 08/18/16 02:00 78 08/18/16 01:09 99 30 08/18/16 00:00 30 08/18/16 00:00 80 08/18/16 00:00 98.9 80 24 173/77 99 08/17/16 22:25 100 30 08/17/16 22:00 68 08/17/16 20:00 98.4 86 12 150/66 100 08/17/16 20:00 86 08/17/16 20:00 30 08/17/16 19:39 100 35 08/17/16 19:00 100 Mechanical Ventilator 35 08/17/16 18:00 82 08/17/16 16:00 98.1 72 9 138/64 100 08/17/16 16:00 72 08/17/16 16:00 35 08/17/16 15:01 100 35 08/17/16 14:00 66 08/17/16 12:58 100 35 08/17/16 12:00 98.1 68 10 134/67 100 08/17/16 12:00 68 08/17/16 12:00 35 08/18/16 07:00 Intake Total 4460 ml Output Total 1725 ml Balance 2735 ml (Cinthia Rosas) Review of Systems/Exam Exam Ms. Richey is intubated, no sedatives. Mild eye opening to pain stimuli. Cranial Nerves: Pupils 3 mm equal, round. Conjugate gaze. Positive corneal reflex b/l Angioedema of lip and tongue Motor: minimal withdrawals to pain stimuli Reflexes: plantars silent b/l Cerebellar: cannot assess due to clinical condition (Cinthia Rosas) Exam Ms. Richey is intubated, no sedatives. Mild eye opening to pain stimuli. Cranial Nerves: Pupils 3 mm equal, round. Conjugate gaze. Positive corneal reflex b/l Angioedema of lip and tongue Motor: minimal withdrawals to pain stimuli Reflexes: plantars silent b/l Cerebellar: cannot assess due to clinical condition (Chris Tran MD) Medications Current Medications Current Medications Medications (Trade) Dose Ordered Sig/Jones Route PRN Reason Start Time Stop Time Status Last Admin Dose Admin Midazolam HCl (Versed Inj) 100 ml @ 0 mls/hr CONTINUOUS IV 08/12/16 18:15 08/14/16 09:45 Metoprolol Tartrate (Lopressor) 50 mg BID PO 08/12/16 21:00 08/18/16 09:38 Sodium Chloride (NS Flush) 2 ml UNSCH PRN .XX FLUSH AFTER USING IV ACCESS 08/12/16 18:30 Sodium Chloride (NS Flush) 2 ml BID .XX 08/12/16 21:00 08/18/16 09:00 Acetaminophen (Tylenol) 650 mg Q6H PRN PO PAIN 1-10 AND/OR FEVER >101F 08/12/16 18:30 Morphine Sulfate (Morphine Inj) 2 mg Q2H PRN IV PAIN SCALE 6 TO 10 08/12/16 18:30 08/17/16 11:13 Famotidine (Pepcid Inj) 10 mg Q12HR IV PUSH 08/12/16 21:00 08/18/16 09:38 Miscellaneous Information 1 Q361D XX 08/12/16 18:30 Chlorhexidine Gluconate (Chlorhexidine 2% Cloth) Taper DAILY@04 TOP 08/13/16 04:00 08/09/17 03:59 08/18/16 04:09 Chlorhexidine Gluconate (Chlorhexidine 2% Cloth) 3 pack UNSCH PRN TOP HYGIENIC CARE 08/12/16 18:30 Senna/Docusate Sodium (Adele-Colace) 1 tab BID PO 08/12/16 21:00 08/18/16 09:39 Magnesium Hydroxide (Milk Of Magnesia Liq) 30 ml Q12H PRN PO MILD - MODERATE CONSTIPATION 08/12/16 18:30 Sennosides (Senokot) 17.2 mg Q12H PRN PO MODERATE - SEVERE CONSTIPATION 08/12/16 18:30 Bisacodyl (Dulcolax Supp) 10 mg DAILY PRN RECTAL SEVERE CONSITIPATION 08/12/16 18:30 Lactulose 30 ml 30 ml DAILY PRN PO SEVERE CONSITIPATION 08/12/16 18:30 Propofol (Diprivan 1000 Mg/100ml Inj) 100 ml @ 0 mls/hr TITRATE IV 08/12/16 18:30 08/14/16 09:45 Hydralazine HCl (Apresoline Inj) 20 mg Q4H PRN IV PUSH SBP>160, DBP>90 08/12/16 20:30 08/17/16 17:24 Labetalol HCl (Trandate Inj) 10 mg Q4H PRN IV PUSH SBP>160, DBP>90 08/12/16 20:30 08/18/16 05:28 Dextrose (D50w (Vial) Inj) 50 ml UNSCH PRN IV HYPOGLYCEMIA-SEE COMMENTS 08/15/16 07:30 Glucagon (Glucagon Inj) 1 mg UNSCH PRN OTHER HYPOGLYCEMIA-SEE COMMENTS 08/15/16 07:30 Hydralazine HCl (Apresoline) 100 mg Q8HR PO 08/16/16 07:30 08/18/16 05:27 Insulin Detemir (Levemir Inj) 30 units Q12HR SQ 08/17/16 21:00 08/18/16 09:41 Dextrose (D50w (Vial) Inj) 50 ml UNSCH PRN IV HYPOGLYCEMIA-SEE COMMENTS 08/17/16 09:15 Glucagon 1 mg 1 mg UNSCH PRN OTHER HYPOGLYCEMIA-SEE COMMENTS 08/17/16 09:15 Sodium Chloride/ Sterile Water (Sodium Chloride 23.4% Inj/Sterile Water For Inj) 1,009.625 ml @ 42 mls/hr Q24H IV 08/17/16 09:15 08/18/16 06:57 Hydrochlorothiazide (Hydrodiuril) 25 mg DAILY PO 08/17/16 09:30 08/18/16 09:38 Lisinopril (Prinivil) 10 mg Q12HR PO 08/17/16 21:00 08/18/16 09:39 Amlodipine Besylate 5 mg 5 mg DAILY PO 08/17/16 09:30 08/18/16 09:39 Nicardipine HCl/ Sodium Chloride (Cardene Inj/NS 500 ml Inj) 500 ml @ 0 mls/hr TITRATE IV 08/17/16 22:45 08/18/16 00:13 (Cinthia Rosas) Medical Decision Making MDM Remarks 56 y/o female with left basal ganglia bleed, 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 I reviewed and agree with the findings presented. I attest that I had a [id number] encounter with the patient on the same day, and personally performed and documented my assessment and findings in the medical record. (Chris Tran MD) Cinthia Rosas Aug 18, 2016 11:52 Chris Tran MD Aug 18, 2016 14:53
--- NOTE | 2016-08-18 16:56 | HHI.CCPN ---
Subjective Remarks/Hospital Course 56-year-old female presents with last seen normal at 5:30am. On arrival to emergency department the patient has right sided weakness but outside stroke alert window, nonverbal. The CAT scan of the head showed acute left basal ganglia hemorrhagic stroke. She was intubated by an ER attending for an airway protection admitted to ICU. 08/13 events overnight, the ICH sites remains the same. 08/14: BP control acceptable. Moves 4 limbs to stimulation, does not follow commands. 08/15: Glucose uncontrolled; start bid levemir and SSI. 08/16: Glucose intolerance persists. Increase levemir. Increase HTN meds, add schedules hydralazine. 08/17: Glucose control problematic. Add more oral BP control. Largely unresponsive. 08/18: poor neurologic exam persists. glycemic control better. hypertension still uncontrolled requiring nicardipine. Cr stable, and likely chronic. acidosis persists despite bicarb infusion. Objective Vital Signs Date Time Temp Pulse Resp B/P Pulse Ox O2 Delivery O2 Flow Rate FiO2 08/18/16 16:10 100 30 08/18/16 12:00 99.0 75 12 137/71 08/18/16 07:00 Mechanical Ventilator 08/14/16 07:00 2.00 Intake and Output 08/17/16 08/17/16 08/18/16 08:00 16:00 00:00 Intake Total 1547 ml 1380 ml 1693 ml Output Total 650 ml 475 ml 675 ml Balance 897 ml 905 ml 1018 ml Result Diagram: 08/18/16 0518 08/18/16 0518 Imaging Last [address] 08/12/161718 Signed Impressions: Service Date/Time: Friday, August 12, 2016 17:28 - CONCLUSION: 1. Focal acute hemorrhagic infarct involving the left thalamic area measuring 2.3 cm in diameter. This is most likely a hypertensive infarct. 2. Bilateral chronic white matter changes. Arcenio Cuenca MD Chest X-Ray 08/12/161718 Signed Impressions: Service Date/Time: Friday, August 12, 2016 18:09 - CONCLUSION: 1. Tip of the endotracheal tube in the right mainstem bronchus origin. Suggest retracting it 2-3 cm. 2. Left lower lobe infiltrate. 3. Cardiomegaly. Benito Balnco Jr., MD Objective Remarks GENERAL: Middle age patient. SKIN: Warm and dry. HEAD: Normocephalic. PERRL, 2 mm. EYES: No scleral icterus. No injection or drainage. NECK: trachea midline.Orally intubated. CARDIOVASCULAR: normal rate, regular rhythm. sinus by tele. RESPIRATORY: equal chest rise, psv 10/5/40%. GASTROINTESTINAL: Abdomen soft, non-tender, nondistended. MUSCULOSKELETAL: No cyanosis, or edema. Well perfused. EXTREMITIES: No clubbing cyanosis or edema. Neuro: Withdraws 4 limbs but not to command. Pupils 2 mm, reactive. Opens eyes spontaneously. A/P Assessment and Plan Assessment: 56yF with hypertensive BG IPH and persistent encephalopathy, course complicated by respiratory failure and unable to wean from mechanical ventilation, renal dysfunction, acidosis, hyperglycemia, and hypertensive emergency which is difficult to control on 5 po agents and intermittent iv meds. Her renal dysfunction appears to be chronic, although we have no prior records of this. We will evaluate with urine studies and renal ultrasound. she is also significantly volume overloaded, but her free water deficit persists, so we will attempt to mitigate her fluid overload with lasix while continuing to replace her free water to keep her already severe hypernatremia stable. She remains very critically ill at this time and off pathway. Plan by Systems: Neuro: Acute hemorrhagic basal ganglia stroke Acute encephalopathy - Due to uncontrolled blood pressure - Continue Neuro checks per unit protocol - Neurosurgery following - Coags normal - Blood pressure control - SBP goal less 160 Resp: Acute hypoxic and hypercarbic Respiratory failure - ICH remains the same - SBT today, fails for mental status - off pathway. - vent bundle - nebs - wean fio2 for spo2 > 90%. Cardiovascular: Hypertensive Emergency - Cardene drip to keep SBP less than 160 - Labetalol and hydralazine when necessary - d/c norvasc and switch to nifedipine 30 q6h - hold lisinopril given facial swelling and renal dysfunction - start clonidine 0.3mg po q8h. - continue metoprolol 50mg po q12h - continue hydralazine 100mg po q8h - labetalol, hydralazine iv prn. Renal: Renal insufficiency- unknown type, likely chronic stage IV, but could have acute component - renal ultrasound - urine na, cr, osms, serum osms, u/a, urine eos. - continue flores and strict i/o's. FEN/GI: Hypernatremia Intravascular volume overload Free water deficit Acute protein calorie malnutrition- mild Non-anion gap metabolic acidosis - bicarb drip at 50cc/hr - free water per tube 300mL q4h - TF at goal - lasix 100mg iv x 1 for volume overload - recheck am sodium - daily bmp Heme/ID: - no infectious etiology suspected at this time. daily cbc. Endo: Poorly controlled DM Hyperglycemia of Critical Illness - Hold glipizide in the ICU - Levimir 30 units BID - medium SSI - improved control today. Prophylaxis: DVT: SCDs, pharmacologic contraindicated given ICH GI: pepcid Lines: - tlc - art line - flores Dispo: - remain in the ICU. very critically ill. This patient remains critically ill with one or more organ systems which are or may become a threat to life. I have spent in excess of 52 minutes discontinuously in the care and management of this patient. This time is exclusive of procedures, and includes, but is not limited to, evaluation of the patient, review of the medical record, discussions with family, consultants, nursing staff, or respiratory therapy, and documentation in the medical record. Liam Coleman MD Aug 18, 2016 16:56
[2016-08-18] MEDS ORDERED: FUROSEMIDE 100 MG/10 ML VIAL IV PUSH ONE (18:45)
--- NOTE | 2016-08-18 21:09 | RADRPT ---
EXAM DATE/TIME: 08/18/2016 20:22 [facility] COMPARISON: No previous studies available for comparison. INDICATIONS : Increased BUN/creatinine. MEDICAL HISTORY : Hypercholesterolemia. Hypertension. Arthritis. CVA. Overactive bladder. Diabetes. SURGICAL HISTORY : Blood transfusions. ENCOUNTER: Initial ACUITY: 1 day PAIN SCORE: Nonresponsive. LOCATION: Bilateral flank MEASUREMENTS: RIGHT KIDNEY: 9.8 x 4.5 x 4.3 cm LEFT KIDNEY: 8.2 x 4.4 x 4.7 cm FINDINGS: Both kidneys are small and diffusely echogenic. There is no hydronephrosis. A 9 mm mid zone cyst is s een on the right. Apparent small retroperitoneal fluid, nonspecific. Urinary bladder is decompressed with a Chacon and grossly unremarkable. CONCLUSION: 1. Small echogenic kidneys typical of chronic parenchymal disease. No evidence of obstructive uropath y or other acute renal abnormality. 2. Chacon in the bladder, grossly unremarkable. 3. Apparent small retroperitoneal free fluid, etiology uncertain. Estrada Dunham MD on August 18, 2016 at 21:05 Board Certified Radiologist. This report was verified electronically.
[2016-08-18] MEDS: SODIUM BICARBONATE 8.4% INJ 150 MEQ in DEXTROSE 5% IN WATE 1000ML INJ 1,000 ML IV SCH ×2 (21:20)
[2016-08-18] MEDS: FREE WATER G-TUBE SCH (22:00)
--- NOTE | 2016-08-18 22:15 | PQ ---
Physician Query Response Document PATIENT: CHASITY NELSON : 1960 ADMIT DATE: 08/12/2016 6:05 PM DISCH DATE: RESPONDING PROVIDER #: [email or web address] QUERY TEXT: Clarification of Clinical Diagnostic Findings Based on your medical judgment, can you further clarify which, if any, of the following this conditio n is intended to indicate: ?EMERGENCY ?URGENCY OR CRISIS ? HYPERTENSION UNSPECIFIED ?Other Specify ? 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
[2016-08-18] MEDS: NIFEdipine 10 MG CAP PO SCH ×2 (22:29→23:19)
[2016-08-18 22:46] LABS: BACTERIA, URINE OCC /hpf; BLOOD, URINE TRACE (NEG); GLUCOSE,URINE NEG (NEG); HYALINE CAST, URINE 1 /lpf (RARE); KETONE, URINE NEG (NEG); MUCUS URINE FEW /lpf (OCC); NITRITE,URINE NEG (NEG); SQUAMOUS EPITHELIAL CELL URINE <1 /hpf (0-5); URINE COLOR LIGHT-YELLOW (YELLW/STRAW)
[2016-08-18] MEDS: cloNIDine HCL 0.3 MG TAB PO SCH (23:18)
[2016-08-19] VITALS (15 sets, daily range): BP systolic 108–190; BP diastolic 56–78; PULSE 70–96; RESP 12–22; TEMP 98.9–101.3; O2SAT 97–100
[2016-08-19] MEDS: SODIUM BICARBONATE 650 MG TAB PO SCH ×3 (01:42→22:12)
[2016-08-19] MEDS ORDERED: SODIUM CHLOR 0.9% 1000 ML INJ 2,000 ML IV ONE (02:15)
[2016-08-19 04:04] LABS: HEMATOCRIT 25.6 % (35.0-46.0); MEAN CELL VOLUME 86.4 FL (80.0-100.0); MEAN CORPUSCULAR HEMOGLOBIN 26.7 PG (27.0-34.0); MEAN CORPUSCULAR HGB CONC 30.9 % (32.0-36.0); PLATELET COUNT 163 TH/MM3 (150-450); RED BLOOD COUNT 2.96 MIL/MM3 (4.00-5.30); RED CELL DISTRIBUTION WIDTH 13.9 % (11.6-17.2); REVIEW FLAG FINAL; WHITE BLOOD COUNT 20.7 TH/MM3 (4.0-11.0)
[2016-08-19 04:37] LABS: POTASSIUM 4.5 MEQ/L (3.5-5.1)
[2016-08-19] MEDS: FREE WATER G-TUBE SCH ×6 (04:42→20:55)
[2016-08-19] MEDS: CHLORHEXIDINE GLUCONATE 2 % 1 PACK (2 CLOTHS) TOP SCH (04:43)
--- NOTE | 2016-08-19 05:59 | RADRPT ---
EXAM DATE/TIME: 08/19/2016 05:05 [facility] COMPARISON: No previous studies available for comparison. INDICATIONS : Evaluate ET tube. MEDICAL HISTORY : Hypercholesterolemia. Hypertension. Arthritis. CVA. Diabetes. SURGICAL HISTORY : None. ENCOUNTER: Subsequent ACUITY: 1 week PAIN SCORE: Non-responsive. LOCATION: Bilateral chest FINDINGS: A single view of the chest demonstrates the endotracheal tube, nasogastric tube and right subclavian central line are all in good position. Lungs are grossly clear. No visible pneumothorax or infiltrate is seen. The cardiomediastinal contours are unremarkable. Osseous structures are intact. CONCLUSION: Tubes and catheter are in good position. Lungs remain mostly clear Mateus Amaro MD on August 19, 2016 at 5:57 Board Certified Radiologist. This report was verified electronically.
[2016-08-19] MEDS ORDERED: FUROSEMIDE 100 MG/10 ML VIAL IV PUSH ONE (06:30)
[2016-08-19] MEDS: cloNIDine HCL 0.3 MG TAB PO SCH (06:49)
[2016-08-19] MEDS: NIFEdipine 10 MG CAP PO SCH ×3 (06:49→17:01)
[2016-08-19] MEDS: hydrALAZINE HCL 100 MG TAB PO SCH ×3 (06:49→21:23)
[2016-08-19] MEDS: INSULIN ASPART SUPPLEMENTAL SCALE SQ SCH ×4 (06:50→21:47)
[2016-08-19] MEDS ORDERED: TERBUTALINE INJ 1 MG/ML AMP SQ PRN (07:00)
[2016-08-19] MEDS ORDERED: PHENYLEPHRINE INJ 40 MG in DEXTROSE 5% IN WATE 500 ML INJ 496 ML IV SCH ×2 (08:00)
[2016-08-19] MEDS: SODIUM CHLORIDE 0.9% FLUSH 10 ML FLUSH SCH ×2 (09:00→20:55)
[2016-08-19] MEDS: DOCUSATE SODIUM 50 MG/SENNA 8.6 MG TAB PO SCH ×2 (09:04→20:55)
[2016-08-19] MEDS: FAMOTIDINE 20 MG/2 ML VIAL IV PUSH SCH ×2 (09:04→20:55)
[2016-08-19] MEDS: INSULIN DETEMIR 100 UNITS/ML VIAL SQ SCH ×2 (09:30→21:46)
--- NOTE | 2016-08-19 10:04 | HHI.NSPN ---
(Cinthia Rosas) Note Status Status: Progress Note (Cinthia Rosas) Interval History Interval History Ms. Richey is a 56-year-old female who presents to [facility] ED with altered mental status and right side weakness. On arrival her blood pressure in chart was 235/115. Her CT scan of the head showed acute left basal ganglia hemorrhagic stroke. She was intubated by an ER attending for an airway protection admitted to ICU. She is sedated. Does not open eyes or follow commands. On Cardene drip for blood pressure control. 08/14: f/u CT Head 08/13 showed stable findings. With angioedema. Intubated and sedated. 08/15: sedation off, not opening eyes or following commands. 08/16: no significant changes to neuro checks overnight, slightly ?opened eyes, appears to be intermittently moving more 08/17: remains intubated, no acute events overnight 08/18: minimal eye opening, not following commands. remains on cardene for bp control, and persistent severe angioedema. 08/19: no changes to neuro status (Cinthia Rosas) Labs, Micro, & Vital Signs Results Date Time Temp Pulse Resp B/P Pulse Ox O2 Delivery O2 Flow Rate FiO2 08/19/16 07:55 100 30 08/19/16 06:00 92 08/19/16 04:00 72 08/19/16 04:00 99.8 72 13 122/62 100 08/19/16 04:00 30 08/19/16 03:53 100 30 08/19/16 02:00 90 08/19/16 00:45 100 30 08/19/16 00:00 99.6 87 12 147/59 100 08/19/16 00:00 30 08/19/16 00:00 87 08/18/16 22:22 100 30 08/18/16 22:00 86 08/18/16 20:00 30 08/18/16 20:00 98.8 84 14 140/64 100 08/18/16 20:00 84 08/18/16 19:18 100 30 08/18/16 19:00 100 Mechanical Ventilator 30 08/18/16 18:00 97 08/18/16 16:10 100 30 08/18/16 16:00 30 08/18/16 16:00 96 08/18/16 16:00 98.6 96 26 160/85 100 08/18/16 14:00 78 08/18/16 12:38 100 30 08/18/16 12:00 30 08/18/16 12:00 99.0 75 12 137/71 100 08/18/16 12:00 75 08/19/16 07:00 Intake Total 5815 ml Output Total 4100 ml Balance 1715 ml Constitutional Vital Signs Date Time Temp Pulse Resp B/P Pulse Ox O2 Delivery O2 Flow Rate FiO2 08/19/16 07:55 100 30 08/19/16 06:00 92 08/19/16 04:00 72 08/19/16 04:00 99.8 72 13 122/62 100 08/19/16 04:00 30 08/19/16 03:53 100 30 08/19/16 02:00 90 08/19/16 00:45 100 30 08/19/16 00:00 99.6 87 12 147/59 100 08/19/16 00:00 30 08/19/16 00:00 87 08/18/16 22:22 100 30 08/18/16 22:00 86 08/18/16 20:00 30 08/18/16 20:00 98.8 84 14 140/64 100 08/18/16 20:00 84 08/18/16 19:18 100 30 08/18/16 19:00 100 Mechanical Ventilator 30 08/18/16 18:00 97 08/18/16 16:10 100 30 08/18/16 16:00 30 08/18/16 16:00 96 08/18/16 16:00 98.6 96 26 160/85 100 08/18/16 14:00 78 08/18/16 12:38 100 30 08/18/16 12:00 30 08/18/16 12:00 99.0 75 12 137/71 100 08/18/16 12:00 75 08/19/16 07:00 Intake Total 5815 ml Output Total 4100 ml Balance 1715 ml (Cinthia Rosas) Review of Systems/Exam Exam Ms. Richey is intubated, no sedatives. very minimal eye opening to pain stimuli. 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 Conjugate gaze. Positive corneal reflex b/l Angioedema of lip and tongue Motor: minimal withdrawals to pain stimuli in LE's Reflexes: plantars silent b/l Cerebellar: cannot assess due to clinical condition (Cinthia Rosas) Medications Current Medications Current Medications Medications (Trade) Dose Ordered Sig/Jones Route PRN Reason Start Time Stop Time Status Last Admin Dose Admin Sodium Chloride (NS Flush) 2 ml UNSCH PRN .XX FLUSH AFTER USING IV ACCESS 08/12/16 18:30 Sodium Chloride (NS Flush) 2 ml BID .XX 08/12/16 21:00 08/19/16 09:00 Acetaminophen (Tylenol) 650 mg Q6H PRN PO PAIN 1-10 AND/OR FEVER >101F 08/12/16 18:30 Famotidine (Pepcid Inj) 10 mg Q12HR IV PUSH 08/12/16 21:00 08/19/16 09:04 Miscellaneous Information 1 Q361D XX 08/12/16 18:30 Chlorhexidine Gluconate (Chlorhexidine 2% Cloth) Taper DAILY@04 TOP 08/13/16 04:00 08/09/17 03:59 08/19/16 04:43 Chlorhexidine Gluconate (Chlorhexidine 2% Cloth) 3 pack UNSCH PRN TOP HYGIENIC CARE 08/12/16 18:30 Senna/Docusate Sodium (Adele-Colace) 1 tab BID PO 08/12/16 21:00 08/19/16 09:04 Magnesium Hydroxide (Milk Of Magnesia Liq) 30 ml Q12H PRN PO MILD - MODERATE CONSTIPATION 08/12/16 18:30 Sennosides (Senokot) 17.2 mg Q12H PRN PO MODERATE - SEVERE CONSTIPATION 08/12/16 18:30 Bisacodyl (Dulcolax Supp) 10 mg DAILY PRN RECTAL SEVERE CONSITIPATION 08/12/16 18:30 Lactulose (Lactulose Liq) 30 ml DAILY PRN PO SEVERE CONSITIPATION 08/12/16 18:30 Hydralazine HCl (Apresoline Inj) 20 mg Q4H PRN IV PUSH SBP>160, DBP>90 08/12/16 20:30 08/17/16 17:24 Labetalol HCl (Trandate Inj) 10 mg Q4H PRN IV PUSH SBP>160, DBP>90 08/12/16 20:30 08/18/16 19:59 Hydralazine HCl (Apresoline) 100 mg Q8HR PO 08/16/16 07:30 08/19/16 06:49 Insulin Detemir (Levemir Inj) 30 units Q12HR SQ 08/17/16 21:00 08/19/16 09:30 Dextrose (D50w (Vial) Inj) 50 ml UNSCH PRN IV HYPOGLYCEMIA-SEE COMMENTS 08/17/16 09:15 Glucagon (Glucagon Inj) 1 mg UNSCH PRN OTHER HYPOGLYCEMIA-SEE COMMENTS 08/17/16 09:15 Hydrochlorothiazide (Hydrodiuril) 25 mg DAILY PO 08/17/16 09:30 Hold 08/18/16 09:38 Lisinopril 10 mg 10 mg Q12HR PO 08/17/16 21:00 Hold 08/18/16 09:39 Nicardipine HCl/ Sodium Chloride (Cardene Inj/NS 500 ml Inj) 500 ml @ 0 mls/hr TITRATE IV 08/17/16 22:45 08/18/16 00:13 Water 300 ml 300 ml Q4HR G-TUBE 08/18/16 20:00 08/19/16 08:00 Sodium Bicarbonate/ Dextrose (Sodium Bicarbonate 8.4% Inj/D5W 1000 ml Inj) 1,150 ml @ 100 mls/hr [id number] IV 08/18/16 20:00 08/18/16 21:20 Sodium Bicarbonate (Sodium Bicarbonate) 650 mg Q8H PO 08/18/16 18:31 08/19/16 01:42 Clonidine (Catapres) 0.2 mg Q8HR PO 08/19/16 14:00 Nifedipine 10 mg 10 mg Q6HR PO 08/19/16 12:00 Phenylephrine HCl/ Dextrose (Neosynephrine Inj/D5W 500 ml Inj) 500 ml @ 0 mls/hr TITRATE IV 08/19/16 08:00 Terbutaline Sulfate (Brethine Inj) 1 mg UNSCH PRN SQ For Extravasation 08/19/16 07:00 (Cinthia Rosas) Medical Decision Making MDM Remarks 56 y/o female with left basal ganglia bleed, most likely hypertensive in etiology, f/u CT Head 08/13 stable ICH Encephalopathy EEG 08/15/16 neg for seizures persistent angioedema (Cinthia Rosas) Plan Plan Remarks cont neuro checks cont critical care mgt clear for tracheostomy cont f/u neuro exam (Cinthia Rosas) Attending Statement The exam, history, and the medical decision-making described in the above note were completed with the assistance of the mid-level provider. I reviewed and agree with the findings presented. I attest that I had a [id number] encounter with the patient on the same day, and personally performed and documented my assessment and findings in the medical record. (Chris Tran MD) Cinthia Rosas Aug 19, 2016 10:03 Chris Tran MD Aug 24, 2016 19:14
--- NOTE | 2016-08-19 11:09 | HHI.CCPN ---
Subjective Remarks/Hospital Course 56-year-old female presents with last seen normal at 5:30am. On arrival to emergency department the patient has right sided weakness but outside stroke alert window, nonverbal. The CAT scan of the head showed acute left basal ganglia hemorrhagic stroke. She was intubated by an ER attending for an airway protection admitted to ICU. 08/13 events overnight, the ICH sites remains the same. 08/14: BP control acceptable. Moves 4 limbs to stimulation, does not follow commands. 08/15: Glucose uncontrolled; start bid levemir and SSI. 08/16: Glucose intolerance persists. Increase levemir. Increase HTN meds, add schedules hydralazine. 08/17: Glucose control problematic. Add more oral BP control. Largely unresponsive. 08/18: poor neurologic exam persists. glycemic control better. hypertension still uncontrolled requiring nicardipine. Cr stable, and likely chronic. acidosis persists despite bicarb infusion. 08/19: no change in neurologic exam. blood pressure under better control, and slightly hypotensive this morning. off nicardipine. Cr stable. FENa 8% consistent with an intrinsic renal process. renal ultrasound consistent with chronic renal disease. hypernatremia and free water deficit persists despite aggressive free water replacement, as well as total volume overload persists. non-gapped acidosis also persists. Objective Vital Signs Date Time Temp Pulse Resp B/P Pulse Ox O2 Delivery O2 Flow Rate FiO2 08/19/16 07:55 100 30 08/19/16 06:00 92 08/19/16 04:00 99.8 13 122/62 08/18/16 19:00 Mechanical Ventilator Intake and Output 08/18/16 08/18/16 08/18/16 07:59 15:59 23:59 Intake Total 1387 ml 1193 ml 1180 ml Output Total 575 ml 1075 ml 975 ml Balance 812 ml 118 ml 205 ml Result Diagram: 08/19/16 0335 08/19/16 0335 Imaging Last [address] 08/12/161718 Signed Impressions: Service Date/Time: Friday, August 12, 2016 17:28 - CONCLUSION: 1. Focal acute hemorrhagic infarct involving the left thalamic area measuring 2.3 cm in diameter. This is most likely a hypertensive infarct. 2. Bilateral chronic white matter changes. Arcenio Cuenca MD Chest X-Ray 08/12/161718 Signed Impressions: Service Date/Time: Friday, August 12, 2016 18:09 - CONCLUSION: 1. Tip of the endotracheal tube in the right mainstem bronchus origin. Suggest retracting it 2-3 cm. 2. Left lower lobe infiltrate. 3. Cardiomegaly. Benito Blanco Jr., MD Objective Remarks GENERAL: Middle age patient. SKIN: Warm and dry. HEAD: Normocephalic. PERRL, 2 mm. EYES: No scleral icterus. No injection or drainage. NECK: trachea midline.Orally intubated. CARDIOVASCULAR: normal rate, regular rhythm. sinus by tele. RESPIRATORY: equal chest rise, psv 10/5/40%. GASTROINTESTINAL: Abdomen soft, non-tender, nondistended. MUSCULOSKELETAL: No cyanosis, or edema. Well perfused. EXTREMITIES: No clubbing cyanosis or edema. Neuro: Withdraws 4 limbs but not to command. Pupils 2 mm, reactive. Opens eyes spontaneously. A/P Assessment and Plan Assessment: 56yF with hypertensive BG IPH and persistent encephalopathy, course complicated by respiratory failure and unable to wean from mechanical ventilation, renal dysfunction, acidosis, hyperglycemia, and hypertensive emergency. She remains significantly volume overloaded, but her free water deficit persists, so we will attempt to mitigate her fluid overload with lasix while continuing to replace her free water to keep her already severe hypernatremia stable. She remains very critically ill at this time and off pathway. Plan by Systems: Neuro: Acute hemorrhagic basal ganglia stroke Acute encephalopathy - Due to uncontrolled blood pressure - Continue Neuro checks per unit protocol - Neurosurgery following - Coags normal - Blood pressure control - SBP goal less 160 Resp: Acute hypoxic and hypercarbic Respiratory failure - ICH remains the same - SBT daily, fails for mental status - off pathway. - vent bundle - nebs - wean fio2 for spo2 > 90%. Cardiovascular: Hypertensive Emergency - off Cardene today. - Labetalol and hydralazine when necessary - decrease nifedipine 10 q6h - hold lisinopril given facial swelling and renal dysfunction - decrease clonidine 0.2mg po q8h. - hold metoprolol 50mg po q12h - continue hydralazine 100mg po q8h Renal: Renal insufficiency- likely chronic stage IV. - renal ultrasound consistent with chronic kidney disease - FENa 8.1% on 6/5 - continue flores and strict i/o's. FEN/GI: Hypernatremia Intravascular volume overload Free water deficit Acute protein calorie malnutrition- mild Non-anion gap metabolic acidosis - bicarb drip increase to 100cc/hr - free water per tube 300mL q4h - TF at goal - lasix 100mg iv x 1 for volume overload again this morning. will add iv diuril x 1 dose for volume overload. - po bicarb. - recheck am sodium - daily bmp Heme/ID: - no infectious etiology suspected at this time. daily cbc. Endo: Poorly controlled DM Hyperglycemia of Critical Illness - Hold glipizide in the ICU - Levimir 30 units BID - medium SSI - improved control today. Prophylaxis: DVT: SCDs, pharmacologic contraindicated given ICH GI: pepcid Lines: - tlc - art line - flores Dispo: - remain in the ICU. very critically ill. This patient remains critically ill with one or more organ systems which are or may become a threat to life. I have spent in excess of 39 minutes discontinuously in the care and management of this patient. This time is exclusive of procedures, and includes, but is not limited to, evaluation of the patient, review of the medical record, discussions with family, consultants, nursing staff, or respiratory therapy, and documentation in the medical record. Liam Coleman MD Aug 19, 2016 11:09
[2016-08-19] MEDS ORDERED: CHLOROTHIAZIDE SOD 500 MG VIAL IV ONE (11:15)
[2016-08-19] MEDS: cloNIDine HCL 0.2 MG TAB PO SCH ×2 (15:02→23:03)
[2016-08-19] MEDS: SODIUM BICARBONATE 8.4% INJ 150 MEQ in DEXTROSE 5% IN WATE 1000ML INJ 1,000 ML IV SCH ×2 (15:02)
--- NOTE | 2016-08-19 17:47 | ECHRPT ---
Indication: Transient cerebral ischemic attack, unspecified CONCLUSIONS Normal left ventricular size. Severe concentric left ventricular hypertrophy. The left ventricular s ystolic function is hyperdynamic with an estimated ejection fraction is >70 %. No regional wall motion abnormalities are present.Aor tic valve sclerosis is present. No aortic valve regurgitation. No aortic valve stenosis.There is trace tricuspid valve regurgitation . No tricuspid valve stenosis.The pulmonary valve is not well visualized. BP: 131 / 61 HR: 84 Rhythm: Sinus MEASUREMENTS (Male / Female) Normal Values Technical Quality:Fair 2D ECHO LV Diastolic Diameter PLAX 3.5 cm 4.2 - 5.9 / 3.9 - 5.3 cm LV Systolic Diameter PLAX 2.0 cm IVS Diastolic Thickness 1.8 cm 0.6 - 1.0 / 0.6 - 0.9 cm LVPW Diastolic Thickness 1.8 cm 0.6 - 1.0 / 0.6 - 0.9 cm LV Relative Wall Thickness 1.0 RV Internal Dim ED PLAX 2.3 cm LVOT Diameter 2.0 cm M-MODE Aortic Root Diameter MM 2.6 cm LA Systolic Diameter MM 3.4 cm LA Ao Ratio MM 1.3 AV Cusp Separation MM 1.9 cm DOPPLER AV Peak Velocity 160.0 cm/s AV Peak Gradient 10.2 mmHg LVOT Peak Velocity 121.0 cm/s LVOT Peak Gradient 5.9 mmHg AV Area Cont Eq pk 2.4 cm MV Area PHT 3.6 cm Mitral E Point Velocity 102.0 cm/s Mitral A Point Velocity 105.0 cm/s Mitral E to A Ratio 1.0 LV E' Lateral Velocity 8.7 cm/s Mitral E to LV E' Lateral Ratio 11.8 LV E' Septal Velocity 7.3 cm/s Mitral E to LV E' Septal Ratio 14.0 TV Peak Velocity 201.0 cm/s PV Peak Velocity 122.0 cm/s PV Peak Gradient 6.0 mmHg FINDINGS Left Ventricle Normal left ventricular size. Severe concentric left ventricular hypertrophy. The left ventricular s ystolic function is hyperdynamic with an estimated ejection fraction is >70 %. No regional wall motion abnormalities are present. Right Ventricle Normal right ventricular size and systolic function. Left Atrium The left atrial size is normal. Right Atrium The right atrial size is normal. Atrial Septum Normal atrial septal thickness without atrial level shunting by limited color doppler interrogation. Aorta The aortic root and proximal ascending aorta are normal in size on limited imaging. Mitral Valve Structurally normal mitral valve. No mitral valve stenosis or regurgitation. Aortic Valve Trileaflet aortic valve. Aortic valve sclerosis is present. No aortic valve regurgitation. No aortic valve stenosis. Tricuspid Valve Structurally normal tricuspid valve. There is trace tricuspid valve regurgitation. No tricuspid valv e stenosis. Pulmonary Valve The pulmonary valve is not well visualized. No pulmonary valve regurgitation or stenosis. Vessels The inferior vena cava is normal in size. Pericardium No pericardial effusion. Vijay Wills MD, FACC, FSCAI Edited by: [employer] Machine Shorthand Teacher (Electronically Signed) Final Date:19 August 2016 15:18 Amended: 19 August 2016 17:45
[2016-08-19] MEDS: ACETAMINOPHEN 325 MG TAB PO PRN (21:24)
[2016-08-20] VITALS (18 sets, daily range): BP systolic 123–159; BP diastolic 66–85; PULSE 85–108; RESP 14–22; TEMP 98.7–101.3; O2SAT 93–100
[2016-08-20] MEDS: FREE WATER G-TUBE SCH ×6 (00:42→21:50)
[2016-08-20] MEDS: SODIUM BICARBONATE 8.4% INJ 150 MEQ in DEXTROSE 5% IN WATE 1000ML INJ 1,000 ML IV SCH ×2 (00:42)
[2016-08-20] MEDS: NIFEdipine 10 MG CAP PO SCH ×4 (00:42→18:19)
[2016-08-20] MEDS: LABETALOL HCL 100 MG/20 ML VIAL IV PUSH PRN ×2 (01:26→09:42)
[2016-08-20] MEDS: CHLORHEXIDINE GLUCONATE 2 % 1 PACK (2 CLOTHS) TOP SCH (02:24)
[2016-08-20] MEDS: hydrALAZINE HCL 20 MG/ML VIAL IV PUSH PRN ×3 (02:52→18:19)
[2016-08-20 04:39] LABS: HEMATOCRIT 26.3 % (35.0-46.0); MEAN CELL VOLUME 84.1 FL (80.0-100.0); MEAN CORPUSCULAR HEMOGLOBIN 26.6 PG (27.0-34.0); MEAN CORPUSCULAR HGB CONC 31.6 % (32.0-36.0); PLATELET COUNT 160 TH/MM3 (150-450); RED BLOOD COUNT 3.13 MIL/MM3 (4.00-5.30); RED CELL DISTRIBUTION WIDTH 13.4 % (11.6-17.2); REVIEW FLAG FINAL; WHITE BLOOD COUNT 22.9 TH/MM3 (4.0-11.0)
[2016-08-20 04:44] LABS: BICARBONATE 26.2 MEQ/L (21.0-32.0); POTASSIUM 3.6 MEQ/L (3.5-5.1)
[2016-08-20] MEDS ORDERED: SODIUM BICARBONATE 650 MG TAB PO SCH (06:00)
[2016-08-20] MEDS: hydrALAZINE HCL 100 MG TAB PO SCH ×3 (06:21→21:49)
[2016-08-20] MEDS: INSULIN ASPART SUPPLEMENTAL SCALE SQ SCH ×4 (06:37→21:28)
[2016-08-20] MEDS: cloNIDine HCL 0.2 MG TAB PO SCH ×3 (06:47→21:49)
--- NOTE | 2016-08-20 07:24 | HHI.CCPN ---
Subjective Remarks/Hospital Course 56-year-old female presents with last seen normal at 5:30am. On arrival to emergency department the patient has right sided weakness but outside stroke alert window, nonverbal. The CAT scan of the head showed acute left basal ganglia hemorrhagic stroke. She was intubated by an ER attending for an airway protection admitted to ICU. 08/13 events overnight, the ICH sites remains the same. 08/14: BP control acceptable. Moves 4 limbs to stimulation, does not follow commands. 08/15: Glucose uncontrolled; start bid levemir and SSI. 08/16: Glucose intolerance persists. Increase Levemir. Increase HTN meds, add schedules hydralazine. 08/17: Glucose control problematic. Add more oral BP control. Largely unresponsive. 08/18: poor neurologic exam persists. glycemic control better. hypertension still uncontrolled requiring nicardipine. Cr stable, and likely chronic. acidosis persists despite bicarb infusion. 08/19: no change in neurologic exam. blood pressure under better control, and slightly hypotensive this morning. off nicardipine. Cr stable. FENa 8% consistent with an intrinsic renal process. renal ultrasound consistent with chronic renal disease. hypernatremia and free water deficit persists despite aggressive free water replacement, as well as total volume overload persists. non-gapped acidosis also persists. 08/20: Spiking fever Tmax 101.3, source unclear. White count 22.9 increased from yesterday. Send panculture, start Zosyn while waiting for cultures to be resulted. Sodium steadily improving 151 today uterine output 4 L BUN 66 creatinine 3.95. Partial eye opening spontaneously, right side flaccid, moves left side spontaneously per RN. Tongue is swollen protuberant Objective Vital Signs Date Time Temp Pulse Resp B/P Pulse Ox O2 Delivery O2 Flow Rate FiO2 08/20/16 06:00 91 08/20/16 04:08 100 21 08/20/16 04:00 101.0 16 146/71 08/19/16 19:00 Mechanical Ventilator Intake and Output 08/19/16 08/19/16 08/20/16 08:00 16:00 00:00 Intake Total 3442 ml 1170 ml 1505 ml Output Total 2050 ml 2075 ml 1350 ml Balance 1392 ml -905 ml 155 ml Result Diagram: 08/20/16 0418 08/20/16 0418 Imaging Last [address] 08/12/161718 Signed Impressions: Service Date/Time: Friday, August 12, 2016 17:28 - CONCLUSION: 1. Focal acute hemorrhagic infarct involving the left thalamic area measuring 2.3 cm in diameter. This is most likely a hypertensive infarct. 2. Bilateral chronic white matter changes. Arcenio Cuenca MD Chest X-Ray 08/12/161718 Signed Impressions: Service Date/Time: Friday, August 12, 2016 18:09 - CONCLUSION: 1. Tip of the endotracheal tube in the right mainstem bronchus origin. Suggest retracting it 2-3 cm. 2. Left lower lobe infiltrate. 3. Cardiomegaly. Benito Blanco Jr., MD Objective Remarks GENERAL: Middle aged patient. Intubated all sedation for last 3 days SKIN: Warm and dry. HEAD: Normocephalic. PERRL, 2 mm. EYES: No scleral icterus. No injection or drainage. NECK: trachea midline.Orally intubated. CARDIOVASCULAR: normal rate, regular rhythm. sinus by tele. RESPIRATORY: equal chest rise, psv 5/5/40%. GASTROINTESTINAL: Abdomen soft, non-tender, nondistended. MUSCULOSKELETAL: No cyanosis, or edema. Well perfused. EXTREMITIES: No clubbing cyanosis or edema. Neuro: Withdraws 4 limbs but not to command. Pupils 2 mm, reactive. Opens eyes spontaneously. A/P Assessment and Plan Assessment: 56yF with hypertensive BG IPH and persistent encephalopathy, course complicated by respiratory failure and unable to wean from mechanical ventilation, renal dysfunction, acidosis, hyperglycemia, and hypertensive emergency. She remains significantly volume overloaded, but her free water deficit persists, so we will attempt to mitigate her fluid overload with Lasix while continuing to replace her free water to keep her already severe hypernatremia stable. She remains very critically ill at this time and off pathway. Plan by Systems: Neuro: Acute hemorrhagic basal ganglia stroke Acute encephalopathy - Due to uncontrolled blood pressure - Continue Neuro checks per unit protocol - Neurosurgery following - Blood pressure control, SBP goal less 160 Resp: Acute hypoxic and hypercarbic Respiratory failure Tongue swelling/? Angioedema - SBT daily, mental status won't permit extubation. Significant tongue swelling - Plan for early tracheostomy, will discuss with today - Add Decadron, Benadryl for 2 days from 08/20 - vent bundle, nebs - wean fio2 for spo2 > 90%. - Sputum culture Cardiovascular: Hypertensive Emergency - off Cardene, Labetalol and hydralazine when necessary - Nifedipine 10 q6h - DC lisinopril given facial/tongue swelling and renal dysfunction, currently on hold - Clonidine 0.2mg po q8h. - continue hydralazine 100mg po q8h - hold metoprolol 50mg po q12h Renal: Kidney failure- likely chronic stage IV. - renal ultrasound consistent with chronic kidney disease - FENa 8.1% on 08/18 - continue flores and strict i/o's. - Consult nephrology FEN/GI: Hypernatremia Intravascular volume overload Free water deficit Acute protein calorie malnutrition- mild Non-anion gap metabolic acidosis - bicarb drip 100cc/hr-change to 1/2 NS at 125 ml per hour - free water per tube 300mL q4h - TF at goal - Given Lasix 100mg iv x 1 for volume overload 08/19., also iv diuril x 1 dose for volume overload 08/19 - po bicarb. - recheck am sodium - daily bmp Heme/ID: Fever leukocytosis Sepsis - Send sputum urine and blood culture - Line site without evidence of infection, chest x-ray from yesterday clear - Start empiric Zosyn 2.25 g every 6 hours, vancomycin 1 g IV 1 Endo: Poorly controlled DM Hyperglycemia of Critical Illness - Hold glipizide in the ICU - Levemir 30 units BID, reduce to 25 q12 as patient is being taken of D5 - medium SSI - improved control Prophylaxis: DVT: SCDs, pharmacologic contraindicated given ICH GI: pepcid Lines: - tlc - art line-DC today 08/20/16 - flores Dispo: - remain in the ICU. very critically ill. In multiorgan failure including neuro , respiratory and renal systems, now with new onset sepsis This patient remains critically ill with one or more organ systems which are or may become a threat to life. I have spent in excess of 42minutes discontinuously in the care and management of this patient. This time is exclusive of procedures, and includes, but is not limited to, evaluation of the patient, review of the medical record, discussions with family, consultants, nursing staff, or respiratory therapy, and documentation in the medical record. Kalpana Dorado MD Aug 20, 2016 07:24
[2016-08-20] MEDS ORDERED: VANCOMYCIN INJ 1,000 MG in SODIUM CHLOR 0.9% 250 ML INJ 250 ML IV ONE (07:30)
[2016-08-20] MEDS ORDERED: SODIUM CHLOR 0.45% 1000 ML INJ 1,000 ML IV SCH (08:00)
[2016-08-20] MEDS: DOCUSATE SODIUM 50 MG/SENNA 8.6 MG TAB PO SCH ×2 (08:41→21:49)
[2016-08-20] MEDS: DEXAMETHASONE SOD PHOS 4 MG/ML VIAL IV PUSH SCH ×3 (08:41→21:50)
[2016-08-20] MEDS: diphenhydrAMINE HCL 50 MG/ML VIAL IV PUSH SCH ×3 (08:41→21:49)
[2016-08-20] MEDS: INSULIN DETEMIR 100 UNITS/ML VIAL SQ SCH ×2 (08:47→21:47)
[2016-08-20] MEDS: SODIUM CHLORIDE 0.9% FLUSH 10 ML FLUSH SCH ×2 (08:47→21:50)
[2016-08-20] MEDS: PIPERACIL-TAZO 2.25 GM PREMIX 50 ML IV SCH ×3 (09:02→21:50)
[2016-08-20] MEDS: FAMOTIDINE 20 MG/2 ML VIAL IV PUSH SCH ×2 (09:11→21:49)
--- NOTE | 2016-08-20 11:05 | HHI.NSPN ---
(Cinthia Rosas) Note Status Status: Progress Note (Cinthia Rosas) Interval History Interval History Ms. Richey is a 56-year-old female who presents to [place] ED with altered mental status and right side weakness. On arrival her blood pressure in chart was 235/115. Her CT scan of the head showed acute left basal ganglia hemorrhagic stroke. She was intubated by an ER attending for an airway protection admitted to ICU. She is sedated. Does not open eyes or follow commands. On Cardene drip for blood pressure control. 08/14: f/u CT Head 08/13 showed stable findings. With angioedema. Intubated and sedated. 6/2: sedation off, not opening eyes or following commands. 6/3: no significant changes to neuro checks overnight, slightly ?opened eyes, appears to be intermittently moving more 6/: remains intubated, no acute events overnight 65: minimal eye opening, not following commands. remains on cardene for bp control, and persistent severe angioedema. 66: no changes to neuro status 6/7: opens eyes,withdraws x 4. otherwise no significant neurological changes. for tracheostomy (Cinthia Rosas) Labs, Micro, & Vital Signs Results Date Time Temp Pulse Resp B/P Pulse Ox O2 Delivery O2 Flow Rate FiO2 08/20/16 10:00 94 08/20/16 08:00 100.2 97 22 159/73 97 159/71 08/20/16 08:00 95 08/20/16 08:00 21 08/20/16 07:30 100 21 08/20/16 07:00 100 Mechanical Ventilator 08/20/16 06:00 91 08/20/16 04:08 100 21 08/20/16 04:00 21 08/20/16 04:00 101.0 95 16 146/71 100 08/20/16 04:00 95 08/20/16 02:00 91 08/20/16 00:05 99 21 08/20/16 00:00 21 08/20/16 00:00 91 08/20/16 00:00 101.3 91 20 147/66 100 08/19/16 22:00 88 08/19/16 20:00 21 08/19/16 20:00 101.3 96 22 190/78 98 08/19/16 20:00 96 08/19/16 19:39 97 21 08/19/16 19:00 97 Mechanical Ventilator 08/19/16 16:07 97 21 08/19/16 12:00 30 08/19/16 12:00 76 08/19/16 12:00 99.2 72 13 131/61 100 08/19/16 11:37 100 30 08/20/16 07:00 Intake Total 4172 ml Output Total 4725 ml Balance -553 ml Constitutional Vital Signs Date Time Temp Pulse Resp B/P Pulse Ox O2 Delivery O2 Flow Rate FiO2 08/20/16 10:00 94 08/20/16 08:00 100.2 97 22 159/73 97 159/71 08/20/16 08:00 95 08/20/16 08:00 21 08/20/16 07:30 100 21 08/20/16 07:00 100 Mechanical Ventilator 08/20/16 06:00 91 08/20/16 04:08 100 21 08/20/16 04:00 21 08/20/16 04:00 101.0 95 16 146/71 100 08/20/16 04:00 95 08/20/16 02:00 91 08/20/16 00:05 99 21 08/20/16 00:00 21 08/20/16 00:00 91 08/20/16 00:00 101.3 91 20 147/66 100 08/19/16 22:00 88 08/19/16 20:00 21 08/19/16 20:00 101.3 96 22 190/78 98 08/19/16 20:00 96 08/19/16 19:39 97 21 08/19/16 19:00 97 Mechanical Ventilator 08/19/16 16:07 97 08/19/16 12:00 30 08/19/16 12:00 76 08/19/16 12:00 99.2 72 13 131/61 100 08/19/16 11:37 100 30 08/20/16 07:00 Intake Total 4172 ml Output Total 4725 ml Balance -553 ml (Cinthia Rosas) Review of Systems/Exam Exam Ms. Richey is intubated, no sedatives. 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 Conjugate gaze. Positive corneal reflex b/l persistent severe angioedema of lip and tongue Motor: withdrawals to pain stimuli x 4, left greater than right Reflexes: plantars silent b/l Cerebellar: cannot assess due to clinical condition (Cinthia Rosas) Medications Current Medications Current Medications Medications (Trade) Dose Ordered Sig/Jones Route PRN Reason Start Time Stop Time Status Last Admin Dose Admin Sodium Chloride (NS Flush) 2 ml UNSCH PRN .XX FLUSH AFTER USING IV ACCESS 08/12/16 18:30 Sodium Chloride (NS Flush) 2 ml BID .XX 08/12/16 21:00 08/20/16 08:47 Acetaminophen (Tylenol) 650 mg Q6H PRN PO PAIN 1-10 AND/OR FEVER >101F 08/12/16 18:30 08/19/16 21:24 Famotidine (Pepcid Inj) 10 mg Q12HR IV PUSH 08/12/16 21:00 08/20/16 09:11 Miscellaneous Information 1 Q361D XX 08/12/16 18:30 Chlorhexidine Gluconate (Chlorhexidine 2% Cloth) Taper DAILY@04 TOP 08/13/16 04:00 08/09/17 03:59 08/19/16 04:43 Chlorhexidine Gluconate (Chlorhexidine 2% Cloth) 3 pack UNSCH PRN TOP HYGIENIC CARE 08/12/16 18:30 Senna/Docusate Sodium (Adele-Colace) 1 tab BID PO 08/12/16 21:00 08/20/16 08:41 Magnesium Hydroxide (Milk Of Magnesia Liq) 30 ml Q12H PRN PO MILD - MODERATE CONSTIPATION 08/12/16 18:30 Sennosides (Senokot) 17.2 mg Q12H PRN PO MODERATE - SEVERE CONSTIPATION 08/12/16 18:30 Bisacodyl (Dulcolax Supp) 10 mg DAILY PRN RECTAL SEVERE CONSITIPATION 08/12/16 18:30 Lactulose (Lactulose Liq) 30 ml DAILY PRN PO SEVERE CONSITIPATION 08/12/16 18:30 Hydralazine HCl (Apresoline Inj) 20 mg Q4H PRN IV PUSH SBP>160, DBP>90 08/12/16 20:30 08/20/16 02:52 Labetalol HCl (Trandate Inj) 10 mg Q4H PRN IV PUSH SBP>160, DBP>90 08/12/16 20:30 08/20/16 09:42 Hydralazine HCl (Apresoline) 100 mg Q8HR PO 08/16/16 07:30 08/20/16 06:21 Dextrose (D50w (Vial) Inj) 50 ml UNSCH PRN IV HYPOGLYCEMIA-SEE COMMENTS 08/17/16 09:15 Glucagon 1 mg 1 mg UNSCH PRN OTHER HYPOGLYCEMIA-SEE COMMENTS 08/17/16 09:15 Nicardipine HCl/ Sodium Chloride (Cardene Inj/NS 500 ml Inj) 500 ml @ 0 mls/hr TITRATE IV 08/17/16 22:45 08/18/16 00:13 Water (Free Water) 300 ml Q4HR G-TUBE 08/18/16 20:00 08/20/16 08:00 Clonidine (Catapres) 0.2 mg Q8HR PO 08/19/16 14:00 08/20/16 06:47 Nifedipine 10 mg 10 mg Q6HR PO 08/19/16 12:00 08/20/16 06:47 Phenylephrine HCl/ Dextrose (Neosynephrine Inj/D5W 500 ml Inj) 500 ml @ 0 mls/hr TITRATE IV 08/19/16 08:00 Terbutaline Sulfate (Brethine Inj) 1 mg UNSCH PRN SQ For Extravasation 08/19/16 07:00 Sodium Bicarbonate 650 mg 650 mg Q8HR PO 08/20/16 06:00 08/20/16 06:21 Piperacillin Sod/ Tazobactam Sod (Zosyn 2.25 Gm Premix) 50 ml @ 100 mls/hr Q6H IV 08/20/16 09:00 08/20/16 09:02 Dexamethasone Sodium Phosphate (Decadron Inj) 4 mg Q6H IV PUSH 08/20/16 08:00 08/22/16 07:59 08/20/16 08:41 Diphenhydramine HCl (Benadryl Inj) 25 mg Q6H IV PUSH 08/20/16 08:00 08/21/16 07:59 08/20/16 08:41 Insulin Detemir (Levemir Inj) 25 units Q12HR SQ 08/20/16 09:00 08/20/16 08:47 (Cinthia Rosas) Medical Decision Making MDM Remarks 56 y/o female with left basal ganglia bleed, most likely hypertensive in etiology, f/u CT Head 08/13 stable ICH Encephalopathy EEG 08/15/16 neg for seizures persistent angioedema (Cinthia Rosas) Plan Plan Remarks cont neuro checks cont critical care mgt, for tracheostomy today, cont f/u neuro exam dw nursing staff (Cinthia Rosas) Attending Statement The exam, history, and the medical decision-making described in the above note were completed with the assistance of the mid-level provider. I reviewed and agree with the findings presented. I attest that I had a [id number] encounter with the patient on the same day, and personally performed and documented my assessment and findings in the medical record. (Chris Tran MD) Cinthia Rosas Aug 20, 2016 11:05 Chris Tran MD Aug 24, 2016 19:18
[2016-08-20] MEDS: DEXTROSE 50% IN WATER 50 ML VIAL(D50) IV PRN (11:36)
--- NOTE | 2016-08-20 12:49 | PD.CONS ---
[facility] Service Nephrology Consult Requested By Dr. Dorado Reason for Consult Acute renal failure Primary Care Physician Unknown History of Present Illness This is a morbidly obese 56 y/o AAF admitted 08/12 with hemorrhagic CVA and hypertensive crisis. PMH of HTN, hyperlipidemia, and DM 2. Her creatinine on arrival was 3.3 that has been fluctuant but is 3.95 today. We have no baseline labs for comparison. She is intubated and unable to give any information pertaining to hx of previous renal disorders or CKD. She is massively fluid overloaded, on NS @ 125cc/hr. Previously on NEGRITO, she has developed angioedema, is due for tracheostomy. Her serum Na is 151. She is a full code. (Miguelina Walsh) Review of Systems ROS Limitations: Intubated, Unresponsive (Miguelina Walsh) Past Family Social History Allergies: Coded Allergies: UNOBTAINABLE (Unverified , 08/12/16) Past Medical History HTN Hyperlipidemia DM II morbid obesity ? CKD Past Surgical History unable to obtain Reported Medications Metoprolol Tartrate 50 Mg Tab 50 Mg PO BID Enalapril (Enalapril Maleate) 20 Mg Tab 20 Mg PO DAILY Hydrochlorothiazide 25 Mg Tab 25 Mg PO DAILY Glipizide 5 Mg Tab 5 Mg PO BIDAC Take 30 minutes before a meal Atorvastatin (Atorvastatin Calcium) 10 Mg Tab 10 Mg PO HS Active Ordered Medications Current Medications Medications (Trade) Dose Ordered Sig/Jones Route Start Time Stop Time Status Last Admin (NS Flush) 2 ml UNSCH PRN .XX 08/12/16 18:30 (NS Flush) 2 ml BID .XX 08/12/16 21:00 08/20/16 08:47 (Tylenol) 650 mg Q6H PRN PO 08/12/16 18:30 08/19/16 21:24 (Pepcid Inj) 10 mg Q12HR IV PUSH 08/12/16 21:00 08/20/16 09:11 Miscellaneous Information 1 Q361D XX 08/12/16 18:30 (Chlorhexidine 2% Cloth) Taper DAILY@04 TOP 08/13/16 04:00 08/09/17 03:59 08/19/16 04:43 (Chlorhexidine 2% Cloth) 3 pack UNSCH PRN TOP 08/12/16 18:30 (Adele-Colace) 1 tab BID PO 08/12/16 21:00 08/20/16 08:41 (Milk Of Magnesia Liq) 30 ml Q12H PRN PO 08/12/16 18:30 (Senokot) 17.2 mg Q12H PRN PO 08/12/16 18:30 (Dulcolax Supp) 10 mg DAILY PRN RECTAL 08/12/16 18:30 (Lactulose Liq) 30 ml DAILY PRN PO 08/12/16 18:30 (Apresoline Inj) 20 mg Q4H PRN IV PUSH 08/12/16 20:30 08/20/16 12:22 (Trandate Inj) 10 mg Q4H PRN IV PUSH 08/12/16 20:30 08/20/16 09:42 (Apresoline) 100 mg Q8HR PO 08/16/16 07:30 08/20/16 06:21 (D50w (Vial) Inj) 50 ml UNSCH PRN IV 08/17/16 09:15 08/20/16 11:36 Glucagon 1 mg 1 mg UNSCH PRN OTHER 08/17/16 09:15 (Cardene Inj/NS 500 ml Inj) 500 ml @ 0 mls/hr TITRATE IV 08/17/16 22:45 08/18/16 00:13 (Free Water) 300 ml Q4HR G-TUBE 08/18/16 20:00 08/20/16 12:00 (Catapres) 0.2 mg Q8HR PO 08/19/16 14:00 08/20/16 06:47 Nifedipine 10 mg 10 mg Q6HR PO 08/19/16 12:00 08/20/16 11:37 (Neosynephrine Inj/D5W 500 ml Inj) 500 ml @ 0 mls/hr TITRATE IV 08/19/16 08:00 (Brethine Inj) 1 mg UNSCH PRN SQ 08/19/16 07:00 Sodium Bicarbonate 650 mg 650 mg Q8HR PO 08/20/16 06:00 08/20/16 06:21 (Zosyn 2.25 Gm Premix) 50 ml @ 100 mls/hr Q6H IV 08/20/16 09:00 08/20/16 09:02 (Decadron Inj) 4 mg Q6H IV PUSH 08/20/16 08:00 08/22/16 07:59 08/20/16 08:41 (Benadryl Inj) 25 mg Q6H IV PUSH 08/20/16 08:00 08/21/16 07:59 08/20/16 08:41 (Levemir Inj) 25 units Q12HR SQ 08/20/16 09:00 08/20/16 08:47 Family History unable to obtain Social History she is other information unable to obtain (Miguelina Walsh) Physical Exam Vital Signs Vital Signs Date Time Temp Pulse Resp B/P Pulse Ox O2 Delivery O2 Flow Rate FiO2 08/20/16 11:09 94 30 08/20/16 10:00 94 08/20/16 08:00 100.2 97 22 159/73 97 159/71 08/20/16 08:00 95 08/20/16 08:00 21 08/20/16 07:30 100 21 08/20/16 07:00 100 Mechanical Ventilator 21 08/20/16 06:00 91 08/20/16 04:08 100 21 08/20/16 04:00 21 08/20/16 04:00 101.0 95 16 146/71 100 08/20/16 04:00 95 08/20/16 02:00 91 08/20/16 00:05 99 21 08/20/16 00:00 21 08/20/16 00:00 91 08/20/16 00:00 101.3 91 20 147/66 100 08/19/16 22:00 88 08/19/16 20:00 21 08/19/16 20:00 101.3 96 22 190/78 98 08/19/16 20:00 96 08/19/16 19:39 97 21 08/19/16 19:00 97 Mechanical Ventilator 08/19/16 16:07 97 21 Physical Exam morbily obese AAF, intubated, sedated, unresponsive no movements in any extremity S1/S2, regular rate, no murmurs Lungs: diminished in bases , no wheezing, vented Abd: obese, tube feed infusing Ext; anasarca, 3+ edema to all extremities, facial edema Laboratory Laboratory Tests Test 08/20/16 04:18 White Blood Count 22.9 Red Blood Count 3.13 Hemoglobin 8.3 Hematocrit 26.3 Mean Corpuscular Volume 84.1 Mean Corpuscular Hemoglobin 26.6 Mean Corpuscular Hemoglobin 31.6 Concent Red Cell Distribution Width 13.4 Platelet Count 160 Mean Platelet Volume 9.3 Sodium Level 151 Potassium Level 3.6 Chloride Level 113 Carbon Dioxide Level 26.2 Anion Gap 12 Blood Urea Nitrogen 66 Creatinine 3.95 Estimat Glomerular Filtration 14 Rate Random Glucose 107 Calcium Level 8.3 Date/Time Procedure Status Source Growth 08/20/16 09:15 Aerobic Blood Culture Received Blood Peripheral Pending 08/20/16 09:15 Anaerobic Blood Culture Received Blood Peripheral Pending 08/20/16 08:30 Urine Culture Received Urine Catheterized Urine Pending 08/20/16 08:00 Gram Stain Received Sputum Expectorated Sputum Pending 08/20/16 08:00 Sputum Culture Received Sputum Expectorated Sputum Pending (Miguelina Walsh) Result Diagram: 08/20/16 0418 08/20/16 0418 Imaging Last Impressions Chest X-Ray 08/19/16 0000 Signed Impressions: Service Date/Time: Friday, August 19, 2016 05:05 - CONCLUSION: Tubes and catheter are in good position. Lungs remain mostly clear aMteus Amaro MD Renal Ultrasound 08/18/16 0000 Signed Impressions: Service Date/Time: Thursday, August 18, 2016 20:22 - CONCLUSION: 1. Small echogenic kidneys typical of chronic parenchymal disease. No evidence of obstructive uropathy or other acute renal abnormality. 2. [place] in the bladder, grossly unremarkable. 3. Apparent small retroperitoneal free fluid, etiology uncertain. Estrada Dunham MD Abdomen X-Ray 08/16/16 0000 Signed Impressions: Service Date/Time: Tuesday, August 16, 2016 08:05 - CONCLUSION: Is a chest tube tip in stomach. Side port in the region of the gastroesophageal junction. Jhony Kirkpatrick MD Head CT 08/13/16 0800 Signed Impressions: Service Date/Time: Saturday, August 13, 2016 04:37 - CONCLUSION: Stable brain appearance Estrada Snow MD (Miguelina Walsh) Assessment and Plan Problem List: (1) Elevated serum creatinine Plan: may have underlying CKD, imaging showing signs of chronic renal disease we will ask the for information when he comes to visit her renal function is worse today, and she is fluid overloaded stop IVF, stop oral bicarbonate begin Diuril 500 BID IV, monitor response avoid nephrotoxic medications daily renal panel she is non oliguric, monitor output (2) Hypernatremia Plan: stoop IVF, stop sodium bicarbonate free water with tube feeding begin Diuril (3) Hypertensive emergency Plan: BP is better continue oral medications avoid NEGRITO due to CHRIS and angioedema (4) Thalamic hemorrhage Plan: due to hypertensive crisis neurosurgery following, non surgical management (5) Respiratory failure Plan: continue vent support (Miguelina Walsh) Assessment and Plan patient was seen and examined. Likely has underlying CKD. Renal function is worse, with fluid overload, hypernatremia. Not a candidate for prison dialysis. Start diuresis. (Jamal Salazar MD) Problem Qualifiers (1) Respiratory failure: Qualified Code: J96.00 - Acute respiratory failure, unspecified whether with hypoxia or hypercapnia Miguelina Walsh Aug 20, 2016 12:49 Jamal Salazar MD Aug 20, 2016 21:19
[2016-08-20] MEDS: CHLOROTHIAZIDE SOD 500 MG VIAL IV SCH ×2 (14:25→21:50)
[2016-08-21] VITALS (19 sets, daily range): BP systolic 105–138; BP diastolic 51–76; PULSE 64–98; RESP 11–15; TEMP 97.9–99; O2SAT 100
[2016-08-21] MEDS: FREE WATER G-TUBE SCH ×6 (00:13→20:59)
[2016-08-21] MEDS: NIFEdipine 10 MG CAP PO SCH ×4 (00:13→17:34)
[2016-08-21] MEDS: CHLORHEXIDINE GLUCONATE 2 % 1 PACK (2 CLOTHS) TOP SCH (02:00)
[2016-08-21] MEDS: PIPERACIL-TAZO 2.25 GM PREMIX 50 ML IV SCH ×4 (02:40→21:01)
[2016-08-21] MEDS: diphenhydrAMINE HCL 50 MG/ML VIAL IV PUSH SCH (02:40)
[2016-08-21] MEDS: DEXAMETHASONE SOD PHOS 4 MG/ML VIAL IV PUSH SCH ×4 (02:41→21:00)
[2016-08-21 04:32] LABS: AUTOMATED NEUTROPHIL # 23.3 TH/MM3 (1.8-7.7); BASOPHIL % 0.2 % (0.0-2.0); HEMATOCRIT 27.9 % (35.0-46.0); HEMO FLAGS DIFF FINAL; LYMPH % 3.2 % (9.0-44.0); LYMPHOCYTE # 0.8 TH/MM3 (1.0-4.8); MEAN CELL VOLUME 84.6 FL (80.0-100.0); MEAN CORPUSCULAR HEMOGLOBIN 26.6 PG (27.0-34.0); MEAN CORPUSCULAR HGB CONC 31.4 % (32.0-36.0); MONO % 3.7 % (0.0-8.0); NEUT % 92.9 % (16.0-70.0); PLATELET COUNT 170 TH/MM3 (150-450); RED BLOOD COUNT 3.29 MIL/MM3 (4.00-5.30); RED CELL DISTRIBUTION WIDTH 13.3 % (11.6-17.2); WHITE BLOOD COUNT 25.1 TH/MM3 (4.0-11.0)
[2016-08-21 04:59] LABS: ALKALINE PHOSPHATASE 109 U/L (45-117); ALT (GPT) 61 U/L (10-53); ANION GAP 13 MEQ/L (5-15); AST (GOT) 65 U/L (15-37); BICARBONATE 24.8 MEQ/L (21.0-32.0); BLOOD UREA NITROGEN 68 MG/DL (7-18); CHLORIDE 110 MEQ/L (98-107); GLOMERULAR FILTRATION RATE 13 ML/MIN (>89); MAGNESIUM 2.9 MG/DL (1.5-2.5); POTASSIUM 4.4 MEQ/L (3.5-5.1); SODIUM (NA) 148 MEQ/L (136-145); TOTAL BILIRUBIN ADULT 0.4 MG/DL (0.2-1.0)
[2016-08-21] MEDS: hydrALAZINE HCL 100 MG TAB PO SCH ×3 (05:13→21:07)
[2016-08-21] MEDS: cloNIDine HCL 0.2 MG TAB PO SCH ×3 (05:13→21:02)
--- NOTE | 2016-08-21 05:59 | RADRPT ---
EXAM DATE/TIME: 08/21/2016 04:37 [facility] COMPARISON: CHEST SINGLE AP, August 19, 2016, 5:05. INDICATIONS : Shortness of breath, possible pulmonary disease. MEDICAL HISTORY : Hypercholesterolemia. Hypertension Arthritis. CVA Diabetes SURGICAL HISTORY : None. ENCOUNTER: Subsequent ACUITY: 1 week PAIN SCORE: Non-responsive. LOCATION: Bilateral chest FINDINGS: A single view of the chest demonstrates the endotracheal tube and nasogastric are both in good positi on. Mild pulmonary vascular congestion. Aorta remains quite tortuous.. The cardiomediastinal contour s are unremarkable. Osseous structures are intact. CONCLUSION: ET tube in good position. Lungs are grossly clear Mateus Amaro MD on August 21, 2016 at 5:57 Board Certified Radiologist. This report was verified electronically.
[2016-08-21] MEDS: INSULIN ASPART SUPPLEMENTAL SCALE SQ SCH ×4 (06:45→21:00)
[2016-08-21] MEDS ORDERED: Vancomycin Consult Pharmacy 1 EA OTHER SCH (08:45)
[2016-08-21] MEDS: DOCUSATE SODIUM 50 MG/SENNA 8.6 MG TAB PO SCH ×2 (08:55→21:02)
[2016-08-21] MEDS: CHLOROTHIAZIDE SOD 500 MG VIAL IV SCH ×2 (08:55→21:00)
[2016-08-21] MEDS: FAMOTIDINE 20 MG/2 ML VIAL IV PUSH SCH ×2 (08:55→21:01)
[2016-08-21] MEDS: SODIUM CHLORIDE 0.9% FLUSH 10 ML FLUSH SCH ×2 (08:55→21:00)
--- NOTE | 2016-08-21 08:55 | HHI.CCPN ---
Subjective Remarks/Hospital Course 56-year-old female presents with last seen normal at 5:30am. On arrival to emergency department the patient has right sided weakness but outside stroke alert window, nonverbal. The CAT scan of the head showed acute left basal ganglia hemorrhagic stroke. She was intubated by an ER attending for an airway protection admitted to ICU. 08/13 events overnight, the ICH sites remains the same. 08/14: BP control acceptable. Moves 4 limbs to stimulation, does not follow commands. 08/15: Glucose uncontrolled; start bid levemir and SSI. 08/16: Glucose intolerance persists. Increase Levemir. Increase HTN meds, add schedules hydralazine. 08/17: Glucose control problematic. Add more oral BP control. Largely unresponsive. 08/18: poor neurologic exam persists. glycemic control better. hypertension still uncontrolled requiring nicardipine. Cr stable, and likely chronic. acidosis persists despite bicarb infusion. 08/19: no change in neurologic exam. blood pressure under better control, and slightly hypotensive this morning. off nicardipine. Cr stable. FENa 8% consistent with an intrinsic renal process. renal ultrasound consistent with chronic renal disease. hypernatremia and free water deficit persists despite aggressive free water replacement, as well as total volume overload persists. non-gapped acidosis also persists. 08/20: Spiking fever Tmax 101.3, source unclear. White count 22.9 increased from yesterday. Send panculture, start Zosyn while waiting for cultures to be resulted. Sodium steadily improving 151 today uterine output 4 L BUN 66 creatinine 3.95. Partial eye opening spontaneously, right side flaccid, moves left side spontaneously per RN. Tongue is swollen protuberant 08/21: Fever downtrending, but WBC increased to 25.1, Na 148 BUN/Cr 68/4.15. Placed on Diuril by nephrology for significant fluid overload Objective Vital Signs Date Time Temp Pulse Resp B/P Pulse Ox O2 Delivery O2 Flow Rate FiO2 08/21/16 08:00 74 08/21/16 08:00 98.5 11 134/73 100 08/21/16 08:00 30 08/21/16 07:00 Mechanical Ventilator Intake and Output 08/20/16 08/20/16 08/21/16 08:00 16:00 00:00 Intake Total 1497 ml 1573 ml 397 ml Output Total 1300 ml 1250 ml 1000 ml Balance 197 ml 323 ml -603 ml Result Diagram: 08/21/1631208/21/16 0313 Imaging Last [address] 08/12/161718 Signed Impressions: Service Date/Time: Friday, August 12, 2016 17:28 - CONCLUSION: 1. Focal acute hemorrhagic infarct involving the left thalamic area measuring 2.3 cm in diameter. This is most likely a hypertensive infarct. 2. Bilateral chronic white matter changes. Arcenio Cuenca MD Chest X-Ray 08/12/161718 Signed Impressions: Service Date/Time: Friday, August 12, 2016 18:09 - CONCLUSION: 1. Tip of the endotracheal tube in the right mainstem bronchus origin. Suggest retracting it 2-3 cm. 2. Left lower lobe infiltrate. 3. Cardiomegaly. Benito Blanco Jr., MD Objective Remarks GENERAL: Middle aged patient. Intubated, off all sedation>3 days SKIN: Warm and dry. HEAD: Normocephalic. PERRL, 2 mm. EYES: No scleral icterus. No injection or drainage. NECK: trachea midline.Orally intubated. CARDIOVASCULAR: normal rate, regular rhythm. sinus by tele. RESPIRATORY: equal chest rise, psv 5/5/40%. GASTROINTESTINAL: Abdomen soft, non-tender, nondistended. MUSCULOSKELETAL: No cyanosis, or edema. Well perfused. EXTREMITIES: No clubbing cyanosis or edema. NEURO: Pupils 2 mm, reactive. Opens eyes spontaneously. Squeezes with LUE, withdraws 4 limbs A/P Assessment and Plan Assessment: 56yF with hypertensive BG IPH and persistent encephalopathy, course complicated by respiratory failure and unable to wean from mechanical ventilation, renal dysfunction, acidosis, hyperglycemia, and hypertensive emergency. She remains significantly volume overloaded, but her free water deficit persists. She remains very critically ill at this time and off pathway. Plan by Systems: Neuro: Acute hemorrhagic basal ganglia stroke Acute encephalopathy - ICH due to uncontrolled blood pressure - Continue Neuro checks per unit protocol - Neurosurgery following - Blood pressure control, SBP goal less 160 - Neuro exam slowly improving Resp: Acute hypoxic and hypercarbic Respiratory failure Angioedema with significant tongue swelling - SBT daily, mental status won't permit extubation and also has significant tongue swelling - Plan for early tracheostomy, general surgery consult pending - Ciara Benadryl for 2 days from 08/20 - vent bundle, nebs - wean fio2 for spo2 > 90%. - Sputum culture Cardiovascular: Hypertensive Emergency - Nifedipine 10 q6h. Use Labetalol and hydralazine when necessary - Clonidine 0.2mg po q8h. - continue hydralazine 100mg po q8h - hold metoprolol 50mg po q12h - off Cardene, - DCd lisinopril given facial/tongue swelling and renal dysfunction Renal: Kidney failure- likely chronic stage IV. - renal ultrasound consistent with chronic kidney disease - FENa 8.1% on 08/18 - continue flores and strict i/o's. - Consulted nephrology Dr. Salazar - All IV fluids stopped by nephrology due to severe fluid overload - Diuril started 08/20/16, creatinine has increased to 4.15 urine output approximately 3 L in 24 hours FEN/GI: Hypernatremia Intravascular volume overload Free water deficit Acute protein calorie malnutrition- mild Non-anion gap metabolic acidosis -See above for fluid management per nephrology - TF at goal - daily bmp Heme/ID: Fever leukocytosis Sepsis - F/U sputum urine and blood culture - Line site without evidence of infection, chest x-ray from yesterday clear - Continue empiric Zosyn 2.25 g every 6 hours, vancomycin pharmacy dosing Endo: Poorly controlled DM Hyperglycemia of Critical Illness - Hold glipizide in the ICU - Levemir 25 q12 - medium SSI - improved control Prophylaxis: DVT: SCDs, pharmacologic contraindicated given ICH GI: pepcid Lines: - TLC Dcd 08/20 - art line-DCd 08/20/16 - flores Dispo: - remain in the ICU. very critically ill. In multiorgan failure including neuro , respiratory and renal systems, now with new onset sepsis This patient remains critically ill with one or more organ systems which are or may become a threat to life. I have spent in excess of 35minutes discontinuously in the care and management of this patient. This time is exclusive of procedures, and includes, but is not limited to, evaluation of the patient, review of the medical record, discussions with family, consultants, nursing staff, or respiratory therapy, and documentation in the medical record. Kalpana Dorado MD Aug 21, 2016 08:55 Kalpana Dorado MD Aug 21, 2016 08:55
[2016-08-21] MEDS: INSULIN DETEMIR 100 UNITS/ML VIAL SQ SCH ×2 (08:59→21:07)
[2016-08-21] MEDS ORDERED: MISC INFORMATION OTHER ONE (09:30)
--- NOTE | 2016-08-21 09:42 | MB ---
cc: VITALIY CROSS JAN MD DATE OF CONSULTATION: 08/20/2016 REASON FOR CONSULTATION: Dysphagia. DATE OF : [address] Milian HISTORY: Thank you for the consultation, unfortunate 56-year-old -Stateless lady who has hemorrhagic cerebrovascular accident and hypertensive crisis. The patient is intubated, laying in bed. She has multiple medical problems. She is not able to in the and I was asked to evaluate her for possible percutaneous endoscopic gastrostomy tube placement for long-term feeding purposes. The patient unable to give any history. REVIEW OF SYSTEMS Unobtainable. PAST MEDICAL HISTORY 1. Significant for chronic kidney disease 2. Morbid obesity. 3. Hyperlipidemia. 4. Hypertension 5. Diabetes 6. Cerebrovascular accident. PAST SURGERIES Not available MEDICATIONS: medication reviewed in the chart. ALLERGIES NO KNOWN DRUG ALLERGIES. FAMILY HISTORY Unobtainable. SOCIAL HISTORY Not obtainable. PHYSICAL EXAMINATION Morbid obesity intubated, sedated, unresponsive on O2. HEAD, EYES, EARS, NOSE, AND THROAT: Pupils are round and reactive to light. CARDIAC: Regular rate and rhythm. LUNGS: Decreased breathing sounds bilaterally. No wheezing. ABDOMEN: Obese. Positive bowel sounds. EXTREMITIES: Plus two to three edema. NEUROLOGIC: Neurologically and sedated, intubated. LABORATORY DATA White count 22.9, hemoglobin 8.3, platelet 160, INR 1.0 few days ago. Chemistries; BUN 66, creatinine 3.95, methicillin-resistant Staphylococcus aureus negative. ASSESSMENT/PLAN 56-year-old lady with hypertension with cerebrovascular accident. The patient is intubated. She will need long-term plan for feeding. I recommend doing a percutaneous endoscopic gastrostomy tube placement. The patient is not on anticoagulation. We are going to obtain consent from the family, we will plan on doing that tomorrow. Will give her antibiotics at intraoperatively. MD RAUL Nash/hilton /7:12 PM /9:19 AM
--- NOTE | 2016-08-21 10:53 | HHI.NSPN ---
(Cinthia Rosas) Note Status Status: Progress Note (Chris Tran MD) Interval History Interval History Ms. Richey is a 56-year-old female who presents to [place] ED with altered mental status and right side weakness. On arrival her blood pressure in chart was 235/115. Her CT scan of the head showed acute left basal ganglia hemorrhagic stroke. She was intubated by an ER attending for an airway protection admitted to ICU. She is sedated. Does not open eyes or follow commands. On Cardene drip for blood pressure control. 08/14: f/u CT Head 08/13 showed stable findings. With angioedema. Intubated and sedated. 62: sedation off, not opening eyes or following commands. 6/: no significant changes to neuro checks overnight, slightly ?opened eyes, appears to be intermittently moving more 6/: remains intubated, no acute events overnight 6: minimal eye opening, not following commands. remains on cardene for bp control, and persistent severe angioedema. 08/19: no changes to neuro status 08/20: opens eyes,withdraws x 4. otherwise no significant neurological changes. for tracheostomy 08/21: for trach and PEG today, nursing reports following commands on right side and tracks. (Cinthia Rosas) Labs, Micro, & Vital Signs Results Date Time Temp Pulse Resp B/P Pulse Ox O2 Delivery O2 Flow Rate FiO2 08/21/16 10:00 100 30 08/21/16 08:00 74 08/21/16 08:00 98.5 74 11 134/73 100 08/21/16 08:00 30 08/21/16 07:24 100 30 08/21/16 07:00 100 Mechanical Ventilator 30 08/21/16 06:00 91 08/21/16 04:03 100 30 08/21/16 04:00 99.0 77 11 138/75 100 08/21/16 04:00 77 08/21/16 04:00 30 08/21/16 02:00 79 08/21/16 00:41 100 30 08/21/16 00:00 98.9 87 15 121/51 100 08/21/16 00:00 30 08/21/16 00:00 87 08/20/16 22:00 85 08/20/16 20:00 30 08/20/16 20:00 98.7 90 14 123/76 99 08/20/16 20:00 95 08/20/16 19:38 100 30 08/20/16 19:00 100 Mechanical Ventilator 30 08/20/16 18:00 99 08/20/16 17:01 93 35 08/20/16 16:00 108 08/20/16 16:00 21 08/20/16 16:00 100.0 95 19 142/85 100 08/20/16 14:00 96 08/20/16 12:00 99 08/20/16 12:00 21 08/20/16 12:00 101.0 99 22 139/74 100 Arterial Line 08/20/16 11:09 94 30 08/21/16 07:00 Intake Total 2691 ml Output Total 3050 ml Balance -359 ml Constitutional Vital Signs Date Time Temp Pulse Resp B/P Pulse Ox O2 Delivery O2 Flow Rate FiO2 08/21/16 10:00 100 30 08/21/16 08:00 74 08/21/16 08:00 98.5 74 11 134/73 100 08/21/16 08:00 30 08/21/16 07:24 100 30 08/21/16 07:00 100 Mechanical Ventilator 30 08/21/16 06:00 91 08/21/16 04:03 100 30 08/21/16 04:00 99.0 77 11 138/75 100 08/21/16 04:00 77 08/21/16 04:00 30 08/21/16 02:00 79 08/21/16 00:41 100 30 08/21/16 00:00 98.9 87 15 121/51 100 08/21/16 00:00 30 08/21/16 00:00 87 08/20/16 22:00 85 08/20/16 20:00 30 08/20/16 20:00 98.7 90 14 123/76 99 08/20/16 20:00 95 08/20/16 19:38 100 30 08/20/16 19:00 100 Mechanical Ventilator 30 08/20/16 18:00 99 08/20/16 17:01 93 35 08/20/16 16:00 108 08/20/16 16:00 21 08/20/16 16:00 100.0 95 19 142/85 100 08/20/16 14:00 96 08/20/16 12:00 99 08/20/16 12:00 21 08/20/16 12:00 101.0 99 22 139/74 100 Arterial Line 08/20/16 11:09 94 30 08/21/16 07:00 Intake Total 2691 ml Output Total 3050 ml Balance -359 ml (Cinthia Rosas) Review of Systems/Exam Exam Ms. Richey is intubated, no sedatives. Opens eyes but does not focus or track for me Cranial Nerves: Pupils 2 mm equal, round. Conjugate gaze. Positive corneal reflex b/l persistent severe angioedema of lip and tongue Motor: withdrawals to pain stimuli x 4, left greater than right Reflexes: plantars silent b/l Cerebellar: cannot assess due to clinical condition (Cinthia Rosas) Medications Current Medications Current Medications Medications (Trade) Dose Ordered Sig/Jones Route PRN Reason Start Time Stop Time Status Last Admin Dose Admin Sodium Chloride (NS Flush) 2 ml UNSCH PRN .XX FLUSH AFTER USING IV ACCESS 08/12/16 18:30 Sodium Chloride (NS Flush) 2 ml BID .XX 08/12/16 21:00 08/21/16 08:55 Acetaminophen (Tylenol) 650 mg Q6H PRN PO PAIN 1-10 AND/OR FEVER >101F 08/12/16 18:30 08/19/16 21:24 Famotidine (Pepcid Inj) 10 mg Q12HR IV PUSH 08/12/16 21:00 08/21/16 08:55 Miscellaneous Information 1 Q361D XX 08/12/16 18:30 Chlorhexidine Gluconate (Chlorhexidine 2% Cloth) Taper DAILY@04 TOP 08/13/16 04:00 08/09/17 03:59 08/21/16 02:00 Chlorhexidine Gluconate (Chlorhexidine 2% Cloth) 3 pack UNSCH PRN TOP HYGIENIC CARE 08/12/16 18:30 Senna/Docusate Sodium (Adele-Colace) 1 tab BID PO 08/12/16 21:00 08/21/16 08:55 Magnesium Hydroxide (Milk Of Magnesia Liq) 30 ml Q12H PRN PO MILD - MODERATE CONSTIPATION 08/12/16 18:30 Sennosides (Senokot) 17.2 mg Q12H PRN PO MODERATE - SEVERE CONSTIPATION 08/12/16 18:30 Bisacodyl (Dulcolax Supp) 10 mg DAILY PRN RECTAL SEVERE CONSITIPATION 08/12/16 18:30 Lactulose (Lactulose Liq) 30 ml DAILY PRN PO SEVERE CONSITIPATION 08/12/16 18:30 Hydralazine HCl (Apresoline Inj) 20 mg Q4H PRN IV PUSH SBP>160, DBP>90 08/12/16 20:30 08/20/16 18:19 Labetalol HCl (Trandate Inj) 10 mg Q4H PRN IV PUSH SBP>160, DBP>90 08/12/16 20:30 08/20/16 09:42 Hydralazine HCl (Apresoline) 100 mg Q8HR PO 08/16/16 07:30 08/21/16 05:13 Dextrose (D50w (Vial) Inj) 50 ml UNSCH PRN IV HYPOGLYCEMIA-SEE COMMENTS 08/17/16 09:15 08/20/16 11:36 Glucagon 1 mg 1 mg UNSCH PRN OTHER HYPOGLYCEMIA-SEE COMMENTS 08/17/16 09:15 Nicardipine HCl/ Sodium Chloride (Cardene Inj/NS 500 ml Inj) 500 ml @ 0 mls/hr TITRATE IV 08/17/16 22:45 08/18/16 00:13 Water (Free Water) 300 ml Q4HR G-TUBE 08/18/16 20:00 08/21/16 07:28 Clonidine (Catapres) 0.2 mg Q8HR PO 08/19/16 14:00 08/21/16 05:13 Nifedipine 10 mg 10 mg Q6HR PO 08/19/16 12:00 08/21/16 05:13 Phenylephrine HCl/ Dextrose (Neosynephrine Inj/D5W 500 ml Inj) 500 ml @ 0 mls/hr TITRATE IV 08/19/16 08:00 Terbutaline Sulfate 1 mg 1 mg UNSCH PRN SQ For Extravasation 08/19/16 07:00 Piperacillin Sod/ Tazobactam Sod (Zosyn 2.25 Gm Premix) 50 ml @ 100 mls/hr Q6H IV 08/20/16 09:00 08/21/16 08:55 Dexamethasone Sodium Phosphate (Decadron Inj) 4 mg Q6H IV PUSH 08/20/16 08:00 08/22/16 07:59 08/21/16 07:29 Insulin Detemir (Levemir Inj) 25 units Q12HR SQ 08/20/16 09:00 08/20/16 21:47 Chlorothiazide Sodium 500 mg 500 mg BID IV 08/20/16 13:15 08/21/16 08:55 Pharmacy Profile Note 0 ml @ 0 mls/hr UNSCH OTHER 08/21/16 08:45 Vancomycin HCl/ Sodium Chloride (Vancomycin Inj/ NS 250 ml Inj) 262.5 ml @ 250 mls/hr ONCE ONCE IV 08/21/16 12:00 08/21/16 13:02 (Cinthia Rosas) Medical Decision Making MDM Remarks 56 y/o female with left basal ganglia bleed, most likely hypertensive in etiology, f/u CT Head 08/13 stable ICH Encephalopathy EEG 08/15/16 neg for seizures persistent angioedema (Cinthia Rosas) Plan Plan Remarks cont neuro checks cont critical care mgt, for tracheostomy today, cont f/u neuro exam dw nursing staff (Cinthia Rosas) Attending Statement The exam, history, and the medical decision-making described in the above note were completed with the assistance of the mid-level provider. I reviewed and agree with the findings presented. I attest that I had a [id number] encounter with the patient on the same day, and personally performed and documented my assessment and findings in the medical record. (Chris Tran MD) Cinthia Rosas Aug 21, 2016 10:53 Chris Trna MD Aug 24, 2016 19:22
--- NOTE | 2016-08-21 11:50 | PD.CONS ---
cc: Amor Bass MD HPI Service General Surgery Consult Requested By Dr. Dorado Reason for Consult Tracheostomy tube placement Primary Care Physician Unknown History of Present Illness This is a 56-year-old female with a past medical history of hypertension, chronic kidney disease, morbidly obese, high cholesterol, diabetes mellitus type 2 and CVA. Vision presents to the emergency department on August 12 with right-sided weakness. CT head was obtained which showed an acute left basal ganglia hemorrhagic stroke. The patient was intubated. The patient has remained on mechanical ventilation for airway protection. A General Surgery consultation has been requested for placement of her percutaneous tracheostomy tube placement Review of Systems ROS Limitations: Clinical Condition, Intubated Past Family Social History Past Medical History Per electronic medical record: Diabetes mellitus type 2 Hypertension High cholesterol Chronic kidney disease Morbidly obese CVA Past Surgical History Unable to obtain Reported Medications See chart Allergies: Coded Allergies: Lisinopril (Verified Allergy, Severe, 08/21/16) Angioedema Active Ordered Medications Current Medications Medications (Trade) Dose Ordered Sig/Jones Route Start Time Stop Time Status Last Admin (NS Flush) 2 ml UNSCH PRN .XX 08/12/16 18:30 (NS Flush) 2 ml BID .XX 08/12/16 21:00 08/21/16 08:55 (Tylenol) 650 mg Q6H PRN PO 08/12/16 18:30 08/19/16 21:24 (Pepcid Inj) 10 mg Q12HR IV PUSH 08/12/16 21:00 08/21/16 08:55 Miscellaneous Information 1 Q361D XX 08/12/16 18:30 (Chlorhexidine 2% Cloth) Taper DAILY@04 TOP 08/13/16 04:00 08/09/17 03:59 08/21/16 02:00 (Chlorhexidine 2% Cloth) 3 pack UNSCH PRN TOP 08/12/16 18:30 (Adele-Colace) 1 tab BID PO 08/12/16 21:00 08/21/16 08:55 (Milk Of Magnesia Liq) 30 ml Q12H PRN PO 08/12/16 18:30 (Senokot) 17.2 mg Q12H PRN PO 08/12/16 18:30 (Dulcolax Supp) 10 mg DAILY PRN RECTAL 08/12/16 18:30 (Lactulose Liq) 30 ml DAILY PRN PO 08/12/16 18:30 (Apresoline Inj) 20 mg Q4H PRN IV PUSH 08/12/16 20:30 08/20/16 18:19 (Trandate Inj) 10 mg Q4H PRN IV PUSH 08/12/16 20:30 08/20/16 09:42 (Apresoline) 100 mg Q8HR PO 08/16/16 07:30 08/21/16 05:13 (D50w (Vial) Inj) 50 ml UNSCH PRN IV 08/17/16 09:15 08/20/16 11:36 Glucagon 1 mg 1 mg UNSCH PRN OTHER 08/17/16 09:15 (Cardene Inj/NS 500 ml Inj) 500 ml @ 0 mls/hr TITRATE IV 08/17/16 22:45 08/18/16 00:13 (Free Water) 300 ml Q4HR G-TUBE 08/18/16 20:00 08/21/16 11:14 (Catapres) 0.2 mg Q8HR PO 08/19/16 14:00 08/21/16 05:13 Nifedipine 10 mg 10 mg Q6HR PO 08/19/16 12:00 08/21/16 11:31 (Neosynephrine Inj/D5W 500 ml Inj) 500 ml @ 0 mls/hr TITRATE IV 08/19/16 08:00 Terbutaline Sulfate 1 mg 1 mg UNSCH PRN SQ 08/19/16 07:00 (Zosyn 2.25 Gm Premix) 50 ml @ 100 mls/hr Q6H IV 08/20/16 09:00 08/21/16 08:55 (Decadron Inj) 4 mg Q6H IV PUSH 08/20/16 08:00 08/22/16 07:59 08/21/16 07:29 (Levemir Inj) 25 units Q12HR SQ 08/20/16 09:00 08/20/16 21:47 Chlorothiazide Sodium 500 mg 500 mg BID IV 08/20/16 13:15 08/21/16 08:55 Pharmacy Profile Note 0 ml @ 0 mls/hr UNSCH OTHER 08/21/16 08:45 (Vancomycin Inj/ NS 250 ml Inj) 262.5 ml @ 250 mls/hr ONCE ONCE IV 08/21/16 12:00 08/21/16 13:02 Family History Noncontributory Social History Unable to obtain Physical Exam Vital Signs Vital Signs Date Time Temp Pulse Resp B/P Pulse Ox O2 Delivery O2 Flow Rate FiO2 08/21/16 10:00 98 08/21/16 10:00 100 30 08/21/16 08:00 74 08/21/16 08:00 98.5 74 11 134/73 100 08/21/16 08:00 30 08/21/16 07:24 100 30 08/21/16 07:00 100 Mechanical Ventilator 30 08/21/16 06:00 91 08/21/16 04:03 100 30 08/21/16 04:00 99.0 77 11 138/75 100 08/21/16 04:00 77 08/21/16 04:00 30 08/21/16 02:00 79 08/21/16 00:41 100 30 08/21/16 00:00 98.9 87 15 121/51 100 08/21/16 00:00 30 08/21/16 00:00 87 08/20/16 22:00 85 08/20/16 20:00 30 08/20/16 20:00 98.7 90 14 123/76 99 08/20/16 20:00 95 08/20/16 19:38 100 30 08/20/16 19:00 100 Mechanical Ventilator 30 08/20/16 18:00 99 08/20/16 17:01 93 35 08/20/16 16:00 108 08/20/16 16:00 21 08/20/16 16:00 100.0 95 19 142/85 100 08/20/16 14:00 96 08/20/16 12:00 99 08/20/16 12:00 21 08/20/16 12:00 101.0 99 22 139/74 100 Arterial Line Physical Exam GENERAL: 56 year old female morbidly obese resting in bed on mechanical ventilation. SKIN: Warm and dry. HEAD: Atraumatic. Normocephalic. EYES: Pupils equal and round. No scleral icterus. No injection or drainage. ENT: No nasal bleeding or discharge. Mucous membranes pink and moist. NECK: Trachea midline. No visible scars on neck. CARDIOVASCULAR: Regular rate and rhythm. RESPIRATORY: No accessory muscle use. Clear to auscultation. Breath sounds equal bilaterally. GASTROINTESTINAL: Abdomen soft, non-tender, nondistended. MUSCULOSKELETAL: Extremities without clubbing, cyanosis, or edema. No obvious deformities. NEUROLOGICAL: Awake and alert. No obvious cranial nerve deficits. Motor grossly within normal limits. Five out of 5 muscle strength in the arms and legs. Normal speech. PSYCHIATRIC: Appropriate mood and affect; insight and judgment normal. Laboratory Laboratory Tests Test 08/21/16 03:13 White Blood Count 25.1 Red Blood Count 3.29 Hemoglobin 8.8 Hematocrit 27.9 Mean Corpuscular Volume 84.6 Mean Corpuscular Hemoglobin 26.6 Mean Corpuscular Hemoglobin 31.4 Concent Red Cell Distribution Width 13.3 Platelet Count 170 Mean Platelet Volume 10.2 Neutrophils (%) (Auto) 92.9 Lymphocytes (%) (Auto) 3.2 Monocytes (%) (Auto) 3.7 Eosinophils (%) (Auto) 0.0 Basophils (%) (Auto) 0.2 Neutrophils # (Auto) 23.3 Lymphocytes # (Auto) 0.8 Monocytes # (Auto) 0.9 Eosinophils # (Auto) 0.0 Basophils # (Auto) 0.0 CBC Comment DIFF FINAL Differential Comment Sodium Level 148 Potassium Level 4.4 Chloride Level 110 Carbon Dioxide Level 24.8 Anion Gap 13 Blood Urea Nitrogen 68 Creatinine 4.15 Estimat Glomerular Filtration 13 Rate Random Glucose 151 Calcium Level 9.3 Phosphorus Level 4.1 Magnesium Level 2.9 Total Bilirubin 0.4 Aspartate Amino Transf 65 (AST/SGOT) Alanine Aminotransferase 61 (ALT/SGPT) Alkaline Phosphatase 109 Total Protein 6.8 Albumin 2.1 Random Vancomycin Level 14.6 Date/Time Procedure Status Source Growth 08/20/16 09:15 Aerobic Blood Culture - Preliminary Resulted Blood Peripheral NO GROWTH IN 1 DAY 08/20/16 09:15 Anaerobic Blood Culture - Preliminary Resulted Blood Peripheral NO GROWTH IN 1 DAY 08/20/16 08:30 Urine Culture Worksheet Urine Catheterized Urine Pending 08/20/16 08:00 Gram Stain - Final Resulted Sputum Expectorated Sputum 08/20/16 08:00 Sputum Culture - Preliminary Resulted Staphylococcus Aureus Result Diagram: 08/21/163 08/21/16312 Assessment and Plan Assessment and Plan 56 year old female s/p acute left sided basal ganglia hemorrhagic stroke; in need of tracheostomy tube placement for ventilator dependent respiratory failure -Plan to place tracheostomy tube at the bedside today at 2 PM -Obtain consents -Nothing by mouth -Hold all anticoagulation -Discussed with Mr. Richey on the phone- all questions were answered -Discussed with Dr. Dorado --Discussed with Dr. Bass Attending Note - Dr. Bass As above Neck soft; trachea palpable Abdomen protruberant The exam, history, and the medical decision-making described in the above note were completed with the assistance of the mid-level provider. I reviewed and agree with the findings presented. I attest that I had a [id number] encounter with the patient on the same day, and personally performed and documented my assessment and findings in the medical record. Discussed Condition With Dr. Kali Dorado Mr. Richey () Nupur Paz Aug 21, 2016 11:49 Amor Bass MD Aug 21, 2016 13:50
[2016-08-21] MEDS ORDERED: VANCOMYCIN INJ 1,250 MG in SODIUM CHLOR 0.9% 250 ML INJ 250 ML IV ONE (12:00)
--- NOTE | 2016-08-21 12:15 | HHI.NPPN ---
Subjective Complaints: Obesity General Problems: Edema Renal Failure: Acute Interval History Remains minimally responsive. Has angioedema. Creatinine is worse. She is making adequate urine. (Miguelina Walsh) Review of Systems General General Remarks unable to obtain (Miguelina Walsh) Objective Data Data 08/20/16 08/21/16 19:00 07:00 Intake Total 1573 ml 1118 ml Output Total 1250 ml 1800 ml Balance 323 ml -682 ml IV Total 743 ml 171 ml Tube Feeding 230 ml 47 ml Other 600 ml 900 ml Output Urine Total 1150 ml 1800 ml Gastric Drainage Total 100 ml # Bowel Movements 2 Vital Signs Date Time Temp Pulse Resp B/P Pulse Ox O2 Delivery O2 Flow Rate FiO2 08/21/16 12:00 98.6 85 11 105/63 100 08/21/16 12:00 30 08/21/16 12:00 85 08/21/16 10:00 98 08/21/16 10:00 100 30 08/21/16 08:00 74 08/21/16 08:00 98.5 74 11 134/73 100 08/21/16 08:00 30 08/21/16 07:24 100 30 08/21/16 07:00 100 Mechanical Ventilator 30 08/21/16 06:00 91 08/21/16 04:03 100 30 08/21/16 04:00 99.0 77 11 138/75 100 08/21/16 04:00 77 08/21/16 04:00 30 08/21/16 02:00 79 08/21/16 00:41 100 30 08/21/16 00:00 98.9 87 15 121/51 100 08/21/16 00:00 30 08/21/16 00:00 87 08/20/16 22:00 85 08/20/16 20:00 30 08/20/16 20:00 98.7 90 14 123/76 99 08/20/16 20:00 95 08/20/16 19:38 100 30 08/20/16 19:00 100 Mechanical Ventilator 30 08/20/16 18:00 99 08/20/16 17:01 93 35 08/20/16 16:00 108 08/20/16 16:00 21 08/20/16 16:00 100.0 95 19 142/85 100 08/20/16 14:00 96 (Miguelina Walsh) -: 08/21/16 0313 08/21/16 0313 Imaging Last 72 hours Impressions Chest X-Ray 08/21/16 0600 Signed Impressions: Service Date/Time: August 04:37 - CONCLUSION: ET tube in good position. Lungs are grossly clear Mateus Amaro MD Chest X-Ray 08/19/16 0000 Signed Impressions: Service Date/Time: Friday, August 19, 2016 05:05 - CONCLUSION: Tubes and catheter are in good position. Lungs remain mostly clear Mateus Amaro MD Tubes & Lines: [place] (Miguelina Walsh) Physical Exam General Appearance: Well Developed, Comfortable Appearance Remarks intubated, eyes open (Miguelina Walsh) Throat Throat Exam: Oral Mucosa [place] & Moist (Miguelina Walsh) Pulmonary Resp Exam: Breath Sounds Equal, Crackles (Miguelina Walsh) Cardiology CV Exam: Regular, Normal Sinus Rhythm (Miguelina Walsh) Gastrointestinal/Abdomen GI Exam: Non-Tender, Bowel Sounds Present GI Remarks obese (Miguelina Walsh) Musculoskeletal MS Exam: Joints Intact, Normal Tone, Unable to Ambulate (Miguelina Walsh) Integumentary Skin Exam: Warm, Dry (Miguelina Walsh) Extremeties Extremities Exam: Pedal Pulses Palpable, Moderate Edema, Dependent Edema ( Miguelina Walsh) Neurologic Neuro Exam: Unresponsive, Sedated Neuro Remarks right side flaccid (Miguelina Walsh) Assessment/Plan Discussed Condition With: Parent, Daughter Problem List: (1) Elevated serum creatinine Plan: may have underlying CKD, imaging showing signs of chronic renal disease making good urine but creatinine is worse it is possible she may require dialysis, but overall prognosis is poor D/W mother and daughter in the meantime continue diuresis, avoid IVF and nephrotoxic medications daily renal panel she is non oliguric, monitor output (2) Hypernatremia Plan: improving, on diuril BID continue free water with tube feeding (3) Hypertensive emergency Plan: BP is better continue oral medications avoid NEGRITO due to CHRIS and angioedema (4) Thalamic hemorrhage Plan: due to hypertensive crisis neurosurgery following, non surgical management (5) Respiratory failure Plan: will need trach soon continue vent support (Miguelina Walsh) Plan patient was seen and examined. Agree with above. Start tapering down Diuril. Renal function was poor to begin with. Discussed with family. It is unclear if she will end up with dialysis during this admission, but it is possible. ( Jamal Salazar MD) Problem Qualifiers (1) Respiratory failure: Qualified Code: J96.00 - Acute respiratory failure, unspecified whether with hypoxia or hypercapnia Miguelina Walsh Aug 21, 2016 12:15 Jamal Salazar MD Aug 22, 2016 16:56
--- NOTE | 2016-08-21 13:48 | GIPROC ---
[facility] [address]. [facility], [id number] EGD WITH PEG PROCEDURE REPORT EXAM DATE: 08/21/2016 PATIENT NAME: Swathi Richey MR#: [id number] BIRTHDATE: 1960 ATTENDING: Danielle Donahue MD ORDER #: [id number] UROLOGIC NURSE: Devyn Watson and Ameena Augustin STATUS: inpatient INDICATIONS: The patient is a 56 yr old female here for an EGD with PEG due to placement of PEG PROCEDURE PERFORMED: EGD with PEG placement MEDICATIONS: None and Per Anesthesia. TOPICAL ANESTHETIC: none CONSENT: The patient understands the risks and benefits of the procedure and understands that these risks include, but are not limited to: sedation, allergic reaction, infection, perforation and/or bleeding. Alternative means of evaluation and treatment include, among others: physical exam, x-rays, and/or surgical intervention. The patient elects to proceed with this endoscopic procedure. medical equipment was checked for proper function. Hand hygiene and appropriate measures for infection prevention was taken. After the risks, benefits and alternatives of the procedure were thoroughly explained, Informed consent was verified, confirmed and timeout was successfully executed by the treatment team. The patient was anesthetized with topical anesthesia and the Pentax [id number] endoscope was introduced through the mouth and advanced to the second portion of the duodenum. The instrument was slowly withdrawn as the mucosa was fully examined. The upper, middle, and distal third of the esophagus were carefully inspected and no abnormalities were noted. The z-line was well seen at the GEJ. The endoscope was pushed into the fundus which was normal including a retroflexed view. The antrum, first and second part of the duodenum were unremarkable. The stomach was then inflated with air, and by a combination of transillumination and manual palpation, the site for the gastrostomy tube placement was selected and marked on the anterior abdominal wall. The skin of the anterior abdomen was surgically prepped and draped with sterile towels. Utilizing strict sterile technique, the selected site was then anesthetized with 1% xylocaine by injection into the skin and subcutaneous tissue. A 1 cm incision was made through the skin and subcutaneous tissue, and the needle/cannula assembly was then passed through the abdominal wall and through the anterior wall of the stomach, maintaining visualization with the endoscope. A snare device previously placed through the instrument channel was then opened and placed around the cannula, the needle was removed, and the insertion wire was passed through the cannula and into the stomach lumen. The snare was then loosened from the cannula, and repositioned to snare the insertion wire. The snare was then pulled up to the endoscope distal tip, and the scope was then withdrawn bringing with it the snare and insertion wire. The insertion wire was then released from the snare, and then loop-attached to the Bard 20 Fr gastrostomy tube. Using the "pull technique", the G-tube was then pulled into place by traction on the insertion wire at the abdominal wall end. The G-tube insertion site was then cleansed once again, and the external bolster was placed over the tube to secure it to the abdominal wall. A sterile dressing was then applied, and the procedure terminated. no abnormalities The gastroscope was then slowly withdrawn and removed. ADVERSE EVENT: There were no complications. IMPRESSIONS: 1. The upper, middle, and distal third of the esophagus were carefully inspected and no abnormalities were noted. The z-line was well seen at the GEJ. The endoscope was pushed into the fundus which was normal including a retroflexed view. The antrum, first and second part of the duodenum were unremarkable. 2. PEG tube placed successfully 20F 4CM skin depth RECOMMENDATIONS: PEG recomendations: 1- NPO for 6 hours except for meds 2- Flush PEG tube every 6 hours with water and after each PEG feeding 3- May resume regular diet in the morning 4- May use Ensure or Boost etc. for PEG tube feeding REPEAT EXAM: procedure as needed Danielle Donahue MD eSigned: Danielle Donahue MD 08/21/2016 1:47 PM cc: PATIENT NAME: Swathi Richey MR#: [id number]
[2016-08-21] MEDS ORDERED: NOREPINEPHRINE 4 MG/4 ML AMP ONE (14:00)
[2016-08-21] MEDS ORDERED: ROCURONIUM INJ 50 MG/5 ML VIAL ONE ×2 (14:07→14:17)
[2016-08-21] MEDS ORDERED: VECURONIUM BROMIDE 10 MG VIAL ONE (14:08)
[2016-08-21] MEDS ORDERED: MIDAZOLAM HCL 5 MG/ML VIAL (1 ML) ONE ×2 (14:08→14:19)
--- NOTE | 2016-08-21 14:35 | HHI.PR ---
cc: Amor Bass MD Immediate Post Op Note Procedure Date: Aug 21, 2016 Pre Op Diagnosis: Ventilator dependence secondary to intracranial hemorrhage Post Op Diagnosis: Same Surgeon: Amor Bass Med Admin(s): Law Dorado MD Procedure: Percutaneous tracheostomy Complications: None Estimated blood loss: <5 ml Anesthesia: TIVA Patient to: ISC Patient Condition: Good Amor Bass MD Aug 21, 2016 14:34
--- NOTE | 2016-08-21 14:38 | PD.PROCEDR ---
Procedure Note Procedure Procedure: Bronchoscopy Indication: Respiratory failure / tracheostomy placement Description: Pt premedicated with Fentanyl and Versed, NM paralysis with 100 mg Rocuronium. Bronchoscope placed within ETT. Anterior airways inspected (trachea, right and left mainstem) with moderate secretions seen. Bronchoscope then placed at end of ETT and ETT along with bronchoscopy pulled back to ~ 19 cm at the lips. Introducer tracheostomy needle and guidewire then visualized entering anterior aspect of trachea. #8 tracheostomy tube was then seen entering trachea over guidewire. Bronchoscope was then placed within new tracheostomy to verify that inner lumen was within tracheal airway. Therapeutic bronchoscopy performed and moderate yellow secretion removed pre and post tracheostomy procedure. BAL specimen sent for culture CXR: Follow up CXR pending Complications: Pt tolerated procedure well with no acute complications noted. BAL for bronchoscopy was negligible Kalpana Dorado MD Aug 21, 2016 14:38
[2016-08-21] MEDS ORDERED: ROCURONIUM INJ 100 MG/10 ML VIAL IV ONE (15:00)
[2016-08-21] MEDS ORDERED: MIDAZOLAM HCL 5 MG/5 ML VIAL IV PUSH ONE (15:00)
[2016-08-21] MEDS ORDERED: fentaNYL CITRATE 250 MCG/5 ML AMP IV PUSH ONE (15:00)
--- NOTE | 2016-08-21 15:05 | RADRPT ---
EXAM DATE/TIME: 08/21/2016 14:31 [facility] COMPARISON: CHEST SINGLE AP, August 21, 2016, 4:37. INDICATIONS : Post tracheostomy. MEDICAL HISTORY : Hypercholesterolemia. Hypertension. Arthritis. CVA. Overactive bladder. Diabetes. SURGICAL HISTORY : Blood transfusions. ENCOUNTER: Subsequent ACUITY: 1 day PAIN SCORE: Non-responsive. LOCATION: Bilateral chest FINDINGS: A single portable frontal view of the chest shows interval placement of a tracheostomy tube. The tip is approximately 3 cm proximal to the avila. No pneumomediastinum. No pneumothorax. Minimal left bas ilar atelectasis. No effusions. Heart is normal in size. Degenerative spine. CONCLUSION: Tracheostomy tube. Minimal left basilar atelectasis. Benito Blanco Jr., MD on August 21, 2016 at 15:02 Board Certified Radiologist. This report was verified electronically.
[2016-08-21] MEDS ORDERED: PROPOFOL 200 MG/20 ML AMP IV ONE (17:02)
--- NOTE | 2016-08-21 22:48 | MP ---
cc: ANANTH BASS DATE OF SURGERY 08/21/16 PROCEDURE TECHNIQUE Percutaneous tracheostomy placement. PREOPERATIVE DIAGNOSIS Ventilator dependence secondary to intracranial hemorrhage. POSTOPERATIVE DIAGNOSIS Percutaneous tracheostomy placement. ANESTHESIA IV anesthesia SURGEON Samantha Bass MD SENIOR DATABASE PROGRAMMER Cresencio Dorado MD ESTIMATED BLOOD LOSS Less than 5 mL COMPLICATIONS None. DRAINS None SPECIMEN Please see Dr. Dorado's dictation for specimen submission. PROCEDURE IN DETAIL Dr. Dorado performed therapeutic bronchoscopy suctioning significant secretions prior to placement of the tracheostomy tube. Please see his dictation for this portion of the procedure. The neck was sterilely prepped and draped. Time-out was taken confirming the correct patient, site and procedure to be performed. The neck was infiltrated with local anesthetic and a transverse incision made two fingerbreadths above the sternal notch. The endotracheal tube was withdrawn to 19 cm and, at this point, the angiocatheter was seen to pass into the trachea. The angiocatheter was advanced and the needle withdrawn. A green guidewire was passed down the angiocatheter and was seen to course toward the avila. The angiocatheter was removed and the tracheal punch used to widen the puncture site. The tracheal tracheostomy puncture device was removed and the blue rhino and white catheter guide were passed over the green guidewire. This was seen to pass smoothly into the trachea and coursed distally. The blue rhino was removed leaving the white catheter guide and green guidewire in place. A 28-Afghan tracheostomy guide with a #8 percutaneous tracheostomy tube was then slid over the green guidewire and white catheter guide. This was seen to pass into the trachea smoothly. The green guidewire and white catheter guide as well as the 28-Afghan tracheostomy guide were all removed simultaneously. Dr. Dorado then placed the bronchoscope down the tracheostomy tube confirming that it was indeed within the trachea. Some secretions were suctioned and minimal bleeding was noted. The obturator was placed into the tracheostomy tube, the balloon was inflated, and the circuit switched over to the tracheostomy tube. The tracheostomy was secured in place with four 2-0 Prolene sutures and the tracheostomy was secured further with Velcro dressings behind the neck. Stat portable chest x-ray is pending at the time of this dictation. The patient's saturations remained at 100% during the entire procedure. The patient had excellent end tidal volumes with 600 mL plus with each breath at the end of the procedure. The patient tolerated the procedure well. MD KIKO Shaw/ /2:39 PM /10:39 PM
[2016-08-22] VITALS (18 sets, daily range): BP systolic 106–141; BP diastolic 58–97; PULSE 68–86; RESP 9–13; TEMP 97.6–98.2; O2SAT 97–100
[2016-08-22] MEDS: CHLORHEXIDINE GLUCONATE 2 % 1 PACK (2 CLOTHS) TOP SCH
[2016-08-22] MEDS: FREE WATER G-TUBE SCH ×6 (00:50→19:47)
[2016-08-22] MEDS: NIFEdipine 10 MG CAP PO SCH ×4 (00:51→18:10)
[2016-08-22] MEDS: PIPERACIL-TAZO 2.25 GM PREMIX 50 ML IV SCH ×2 (02:27→08:27)
[2016-08-22] MEDS: DEXAMETHASONE SOD PHOS 4 MG/ML VIAL IV PUSH SCH (02:27)
[2016-08-22] MEDS: cloNIDine HCL 0.2 MG TAB PO SCH ×3 (05:26→22:15)
[2016-08-22] MEDS: hydrALAZINE HCL 100 MG TAB PO SCH ×3 (05:26→22:15)
[2016-08-22 05:44] LABS: BICARBONATE 24.1 MEQ/L (21.0-32.0); POTASSIUM 4.4 MEQ/L (3.5-5.1)
[2016-08-22] MEDS: INSULIN ASPART SUPPLEMENTAL SCALE SQ SCH ×4 (06:51→19:47)
[2016-08-22] MEDS: SODIUM CHLORIDE 0.9% FLUSH 10 ML FLUSH SCH ×2 (08:26→19:46)
[2016-08-22] MEDS: FAMOTIDINE 20 MG/2 ML VIAL IV PUSH SCH ×2 (08:27→19:46)
[2016-08-22] MEDS: DOCUSATE SODIUM 50 MG/SENNA 8.6 MG TAB PO SCH ×2 (08:27→19:46)
[2016-08-22] MEDS: CHLOROTHIAZIDE SOD 500 MG VIAL IV SCH (08:28)
[2016-08-22] MEDS: INSULIN DETEMIR 100 UNITS/ML VIAL SQ SCH ×2 (08:30→19:48)
--- NOTE | 2016-08-22 09:56 | HHI.CCPN ---
Subjective Remarks/Hospital Course 56-year-old female presents with last seen normal at 5:30am. On arrival to emergency department the patient has right sided weakness but outside stroke alert window, nonverbal. The CAT scan of the head showed acute left basal ganglia hemorrhagic stroke. She was intubated by an ER attending for an airway protection admitted to ICU. 08/13 events overnight, the ICH sites remains the same. 08/14: BP control acceptable. Moves 4 limbs to stimulation, does not follow commands. 08/15: Glucose uncontrolled; start bid levemir and SSI. 08/16: Glucose intolerance persists. Increase Levemir. Increase HTN meds, add schedules hydralazine. 08/17: Glucose control problematic. Add more oral BP control. Largely unresponsive. 08/18: poor neurologic exam persists. glycemic control better. hypertension still uncontrolled requiring nicardipine. Cr stable, and likely chronic. acidosis persists despite bicarb infusion. 08/19: no change in neurologic exam. blood pressure under better control, and slightly hypotensive this morning. off nicardipine. Cr stable. FENa 8% consistent with an intrinsic renal process. renal ultrasound consistent with chronic renal disease. hypernatremia and free water deficit persists despite aggressive free water replacement, as well as total volume overload persists. non-gapped acidosis also persists. 08/20: Spiking fever Tmax 101.3, source unclear. White count 22.9 increased from yesterday. Send panculture, start Zosyn while waiting for cultures to be resulted. Sodium steadily improving 151 today uterine output 4 L BUN 66 creatinine 3.95. Partial eye opening spontaneously, right side flaccid, moves left side spontaneously per RN. Tongue is swollen protuberant 08/21: Fever downtrending, but WBC increased to 25.1, Na 148 BUN/Cr 68/4.15. Placed on Diuril by nephrology for significant fluid overload 08/22: Improving neuro exam, follows commands on left upper and lower extremity. BUN/creatinine increasing today 87/4.3 Will reduce Diuril. May need HD. Cleared for sq heparin by Dr. Tran Objective Vital Signs Date Time Temp Pulse Resp B/P Pulse Ox O2 Delivery O2 Flow Rate FiO2 08/22/16 07:30 100 30 08/22/16 06:00 77 08/22/16 04:00 97.8 9 106/58 08/21/16 19:00 Mechanical Ventilator Intake and Output 08/21/16 08/21/16 08/22/16 08:00 16:00 00:00 Intake Total 721 ml 724 ml 553 ml Output Total 800 ml 1000 ml 700 ml Balance -79 ml -276 ml -147 ml Result Diagram: 08/21/16 0313 08/22/16 0435 Other Results Microbiology Date/Time Procedure Status Source Growth 08/20/16 08:00 Gram Stain - Final Complete Sputum Expectorated Sputum 08/20/16 08:00 Sputum Culture - Final Complete Staphylococcus Aureus 08/20/16 08:30 Urine Culture - Final Complete Urine Catheterized Urine Escherichia Coli Imaging Last [address] 08/12/161718 Signed Impressions: Service Date/Time: Friday, August 12, 2016 17:28 - CONCLUSION: 1. Focal acute hemorrhagic infarct involving the left thalamic area measuring 2.3 cm in diameter. This is most likely a hypertensive infarct. 2. Bilateral chronic white matter changes. Arcenio Cuenca MD Chest X-Ray 08/12/161718 Signed Impressions: Service Date/Time: Friday, August 12, 2016 18:09 - CONCLUSION: 1. Tip of the endotracheal tube in the right mainstem bronchus origin. Suggest retracting it 2-3 cm. 2. Left lower lobe infiltrate. 3. Cardiomegaly. Benito Blanco Jr., MD Objective Remarks GENERAL: Middle aged patient. Intubated, off all sedation for several days SKIN: Warm and dry. HEAD: Normocephalic. PERRL, 2 mm. EYES: No scleral icterus. No injection or drainage. ENT: Tongue is protuberant/angioedema NECK: trachea midline.Orally intubated. CARDIOVASCULAR: normal rate, regular rhythm. sinus by tele. RESPIRATORY: equal chest rise, psv 5/5/40%. GASTROINTESTINAL: Abdomen soft, non-tender, nondistended. MUSCULOSKELETAL: No cyanosis, or edema. Well perfused. EXTREMITIES: No clubbing cyanosis or edema. NEURO: Pupils 3 mm, reactive. Opens eyes spontaneously. Follows commands on left upper and lower extremity, withdraws 4 limbs Urinary Catheter: Yes Assessment to: Continue A/P Assessment and Plan Assessment: 56yF with hypertensive BG hemorrhage and persistent encephalopathy, course complicated by respiratory failure and unable to wean from mechanical ventilation, angioedema, renal failure, hyperglycemia, and hypertensive emergency. She remains significantly volume overloaded, but her free water deficit persists. She remains very critically ill at this time and off pathway. Plan by Systems: Neuro: Acute hemorrhagic basal ganglia stroke Acute encephalopathy - ICH due to uncontrolled blood pressure - Continue Neuro checks per unit protocol - Neurosurgery following, Dr. Tran - Blood pressure control, SBP goal less 160 - Neuro exam slowly improving, now following commands from left upper and lower extremity - PT/OT. Up to stretcher chair today Resp: Acute hypoxic and hypercarbic Respiratory failure Angioedema with significant tongue swelling - SBT daily, s/p Trach with Dr. Bass 08/22/16 - Decadron, Benadryl 08/20-08/22 - vent bundle, nebs - wean fio2 for spo2 > 90%. - Sputum culture MSSA Cardiovascular: Hypertensive Emergency - Nifedipine 10 q6h. Use Labetalol and hydralazine when necessary - Clonidine 0.2mg po q8h. - continue hydralazine 100mg po q8h - off Cardene, holding metoprolol 50mg po q12h - DCd lisinopril given facial/tongue swelling and renal dysfunction Renal: Kidney failure- likely chronic stage IV. - renal ultrasound consistent with chronic kidney disease - FENa 8.1% on 08/18 - continue flores and strict i/o's. - Consulted nephrology Dr. Salazar - All IV fluids stopped by nephrology due to severe fluid overload - Diuril 500 mg IV BID started 08/20/16, creatinine has increased to 4.3 today. Change Diuril to 500 mg daily FEN/GI: Hypernatremia Volume overload Acute protein calorie malnutrition- mild Non-anion gap metabolic acidosis - See above for fluid management per nephrology - TF at goal - Daily bmp Heme/ID: MSSA pneumonia Escherichia coli UTI Sepsis - F/U sputum urine and blood culture - Line site without evidence of infection, chest x-ray from yesterday clear - Currently on empiric Zosyn 2.25 g every 6 hours, vancomycin pharmacy dosing. DC both and start Rocephin 1 GM Daily - 08/20 urine culture E Coli, sputum MSSA Endo: Poorly controlled DM Hyperglycemia of Critical Illness - Holding glipizide in the ICU - Levemir 25 q12 - medium SSI - improved control Prophylaxis: DVT: SCDs, pharmacologic contraindicated given ICH GI: Pepcid Lines: - TLC Dcd 08/20 - art line-DCd 08/20/16 - flores Dispo: - remain in the ICU. very critically ill. In multiorgan failure including neuro , respiratory and renal systems, now with new onset sepsis This patient remains critically ill with one or more organ systems which are or may become a threat to life. I have spent in excess of 32 minutes discontinuously in the care and management of this patient. This time is exclusive of procedures, and includes, but is not limited to, evaluation of the patient, review of the medical record, discussions with family, consultants, nursing staff, or respiratory therapy, and documentation in the medical record. Kalpana Dorado MD Aug 22, 2016 09:56
[2016-08-22] MEDS ORDERED: cefTRIAXone INJ 1,000 MG in SODIUM CHLORIDE 0.9% INJ 100 ML IV SCH (10:15)
[2016-08-22 10:27] LABS: ANION GAP 16 MEQ/L (5-15); AST (GOT) 43 U/L (15-37); BICARBONATE 18.7 MEQ/L (21.0-32.0); BLOOD UREA NITROGEN 78 MG/DL (7-18); CHLORIDE 112 MEQ/L (98-107); GLOMERULAR FILTRATION RATE 12 ML/MIN (>89); POTASSIUM 4.5 MEQ/L (3.5-5.1); SODIUM (NA) 147 MEQ/L (136-145)
[2016-08-22 10:28] LABS: ALT (GPT) 58 U/L (10-53)
[2016-08-22 10:30] LABS: ALKALINE PHOSPHATASE 94 U/L (45-117); TOTAL BILIRUBIN ADULT 0.4 MG/DL (0.2-1.0)
--- NOTE | 2016-08-22 10:50 | RADRPT ---
EXAM DATE/TIME: 08/22/2016 10:07 [facility] COMPARISON: CHEST SINGLE AP, August 21, 2016, 14:31. INDICATIONS : Short of breath. MEDICAL HISTORY : Hypercholesterolemia. Hypertension cva, diabetes SURGICAL HISTORY : None. ENCOUNTER: Initial ACUITY: 1 week PAIN SCORE: Non-responsive. LOCATION: Bilateral chest FINDINGS: There is a stable tracheostomy in place. Redemonstration of minimal left basilar airspace disease. Ca rdiomediastinal contours are within normal limits. Remainder of the exam is unchanged. CONCLUSION: 1. Stable tracheostomy. 2. Stable minimal left basilar atelectasis. Davion Rosales MD on August 22, 2016 at 10:47 Board Certified Radiologist. This report was verified electronically.
--- NOTE | 2016-08-22 10:51 | HHI.NSPN ---
(Cinthia Rosas) Note Status Status: Progress Note (Cinthia Rosas) Interval History Interval History Ms. Richey is a 56-year-old female who presents to [place] ED with altered mental status and right side weakness. On arrival her blood pressure in chart was 235/115. Her CT scan of the head showed acute left basal ganglia hemorrhagic stroke. She was intubated by an ER attending for an airway protection admitted to ICU. She is sedated. Does not open eyes or follow commands. On Cardene drip for blood pressure control. 08/14: f/u CT Head 08/13 showed stable findings. With angioedema. Intubated and sedated. 08/15: sedation off, not opening eyes or following commands. 08/16: no significant changes to neuro checks overnight, slightly ?opened eyes, appears to be intermittently moving more 6: remains intubated, no acute events overnight 08/18: minimal eye opening, not following commands. remains on cardene for bp control, and persistent severe angioedema. 08/19: no changes to neuro status 08/20: opens eyes,withdraws x 4. otherwise no significant neurological changes. for tracheostomy 08/21: for trach and PEG today, nursing reports following commands on right side and tracks. 08/22: mental status improving, more awake, following more commands, s/p trach and PEG (Cinthia Rosas) Labs, Micro, & Vital Signs Results Date Time Temp Pulse Resp B/P Pulse Ox O2 Delivery O2 Flow Rate FiO2 08/22/16 07:30 100 30 08/22/16 06:00 77 08/22/16 04:11 100 30 08/22/16 04:00 30 08/22/16 04:00 97.8 73 9 106/58 100 08/22/16 04:00 73 08/22/16 02:00 73 08/22/16 00:58 100 30 08/22/16 00:00 86 08/22/16 00:00 30 08/22/16 00:00 98.0 86 13 123/69 100 08/21/16 22:00 69 08/21/16 20:00 30 08/21/16 20:00 97.9 70 13 123/76 100 08/21/16 20:00 70 08/21/16 19:42 100 30 08/21/16 19:00 100 Mechanical Ventilator 30 08/21/16 18:00 66 08/21/16 16:53 100 30 08/21/16 16:45 30 08/21/16 16:00 98.4 65 13 128/70 100 08/21/16 16:00 30 08/21/16 16:00 64 08/21/16 14:15 100 100 08/21/16 14:00 69 08/21/16 13:10 100 100 08/21/16 12:00 98.6 85 11 105/63 100 08/21/16 12:00 30 08/21/16 12:00 85 08/22/16 07:00 Intake Total 2299 ml Output Total 2425 ml Balance -126 ml Constitutional Vital Signs Date Time Temp Pulse Resp B/P Pulse Ox O2 Delivery O2 Flow Rate FiO2 08/22/16 07:30 100 30 08/22/16 06:00 77 08/22/16 04:11 100 30 08/22/16 04:00 30 08/22/16 04:00 97.8 73 9 106/58 100 08/22/16 04:00 73 08/22/16 02:00 73 08/22/16 00:58 100 30 08/22/16 00:00 86 08/22/16 00:00 30 08/22/16 00:00 98.0 86 13 123/69 100 08/21/16 22:00 69 08/21/16 20:00 30 08/21/16 20:00 97.9 70 13 123/76 100 08/21/16 20:00 70 08/21/16 19:42 100 30 08/21/16 19:00 100 Mechanical Ventilator 30 08/21/16 18:00 66 08/21/16 16:53 100 30 08/21/16 16:45 30 08/21/16 16:00 98.4 65 13 128/70 100 08/21/16 16:00 30 08/21/16 16:00 64 08/21/16 14:15 100 100 08/21/16 14:00 69 08/21/16 13:10 100 100 08/21/16 12:00 98.6 85 11 105/63 100 08/21/16 12:00 30 08/21/16 12:00 85 08/22/16 07:00 Intake Total 2299 ml Output Total 2425 ml Balance -126 ml (Cinthia Rosas) Review of Systems/Exam Exam Ms. Richey is awake, tracks. Followed few simple commands. Cranial Nerves: Pupils 2 mm equal, round. Conjugate gaze. Positive corneal reflex b/l persistent severe angioedema of lip and tongue Neck with tracheostomy on mechanical vent Motor: moving extremities intermittently, on two point soft restraints Reflexes: plantars silent b/l Cerebellar: cannot assess due to clinical condition (Cinthia Rosas) Medications Current Medications Current Medications Medications (Trade) Dose Ordered Sig/Jones Route PRN Reason Start Time Stop Time Status Last Admin Dose Admin Sodium Chloride (NS Flush) 2 ml UNSCH PRN .XX FLUSH AFTER USING IV ACCESS 08/12/16 18:30 Sodium Chloride (NS Flush) 2 ml BID .XX 08/12/16 21:00 08/22/16 08:26 Acetaminophen (Tylenol) 650 mg Q6H PRN PO PAIN 1-10 AND/OR FEVER >101F 08/12/16 18:30 08/19/16 21:24 Famotidine (Pepcid Inj) 10 mg Q12HR IV PUSH 08/12/16 21:00 08/22/16 08:27 Miscellaneous Information 1 Q361D XX 08/12/16 18:30 Chlorhexidine Gluconate (Chlorhexidine 2% Cloth) Taper DAILY@04 TOP 08/13/16 04:00 08/09/17 03:59 08/22/16 00:00 Chlorhexidine Gluconate (Chlorhexidine 2% Cloth) 3 pack UNSCH PRN TOP HYGIENIC CARE 08/12/16 18:30 Senna/Docusate Sodium (Adele-Colace) 1 tab BID PO 08/12/16 21:00 08/22/16 08:27 Magnesium Hydroxide (Milk Of Magnesia Liq) 30 ml Q12H PRN PO MILD - MODERATE CONSTIPATION 08/12/16 18:30 Sennosides (Senokot) 17.2 mg Q12H PRN PO MODERATE - SEVERE CONSTIPATION 08/12/16 18:30 Bisacodyl (Dulcolax Supp) 10 mg DAILY PRN RECTAL SEVERE CONSITIPATION 08/12/16 18:30 Lactulose (Lactulose Liq) 30 ml DAILY PRN PO SEVERE CONSITIPATION 08/12/16 18:30 Hydralazine HCl (Apresoline Inj) 20 mg Q4H PRN IV PUSH SBP>160, DBP>90 08/12/16 20:30 08/20/16 18:19 Labetalol HCl (Trandate Inj) 10 mg Q4H PRN IV PUSH SBP>160, DBP>90 08/12/16 20:30 08/20/16 09:42 Hydralazine HCl (Apresoline) 100 mg Q8HR PO 08/16/16 07:30 08/22/16 05:26 Dextrose (D50w (Vial) Inj) 50 ml UNSCH PRN IV HYPOGLYCEMIA-SEE COMMENTS 08/17/16 09:15 08/20/16 11:36 Glucagon 1 mg 1 mg UNSCH PRN OTHER HYPOGLYCEMIA-SEE COMMENTS 08/17/16 09:15 Nicardipine HCl/ Sodium Chloride (Cardene Inj/NS 500 ml Inj) 500 ml @ 0 mls/hr TITRATE IV 08/17/16 22:45 08/18/16 00:13 Water (Free Water) 300 ml Q4HR G-TUBE 08/18/16 20:00 08/22/16 08:00 Clonidine (Catapres) 0.2 mg Q8HR PO 08/19/16 14:00 08/22/16 05:26 Nifedipine (Procardia) 10 mg Q6HR PO 08/19/16 12:00 08/22/16 05:26 Terbutaline Sulfate (Brethine Inj) 1 mg UNSCH PRN SQ For Extravasation 08/19/16 07:00 Insulin Detemir (Levemir Inj) 25 units Q12HR SQ 08/20/16 09:00 08/22/16 08:30 Chlorothiazide Sodium (Diuril Inj) 500 mg DAILY IV 08/23/16 09:00 Heparin Sodium (Porcine) 5000 units 5,000 units Q12HR SQ 08/22/16 10:00 Ceftriaxone Sodium/Sodium Chloride (Rocephin Inj/NS Inj) 100 ml @ 200 mls/hr Q24H IV 08/22/16 11:00 (Cinthia Rosas) Medical Decision Making MDM Remarks 56 y/o female with left basal ganglia bleed, most likely hypertensive in etiology, f/u CT Head 08/13 stable ICH Encephalopathy, neuro exam improving EEG 08/15/16 neg for seizures Angioedema (Cinthia Rosas) Plan Plan Remarks cont critical care mgt, cont neuro checks (Cinthia Rosas) Attending Statement The exam, history, and the medical decision-making described in the above note were completed with the assistance of the mid-level provider. I reviewed and agree with the findings presented. I attest that I had a [id number] encounter with the patient on the same day, and personally performed and documented my assessment and findings in the medical record. (Chris Tran MD) Cinthia Rosas Aug 22, 2016 10:51 Chris Tran MD Aug 24, 2016 19:26
--- NOTE | 2016-08-22 10:53 | HHI.NPPN ---
Subjective Complaints: Obesity General Problems: Edema Renal Failure: Acute Interval History She had trach and peg placed. Tube feed is infusing. Fluid overload persists. Creatinine is worse. She is responding to diuretics. (Miguelina Walsh) Review of Systems General General Remarks unable to obtain (Miguelina Walsh) Objective Data Data 08/21/16 08/22/16 19:00 07:00 Intake Total 724 ml 1575 ml Output Total 1000 ml 1425 ml Balance -276 ml 150 ml IV Total 124 ml 199 ml Tube Feeding 416 ml Tube Irrigant 60 ml Other 600 ml 900 ml Output Urine Total 1000 ml 1425 ml Stool Total 0 ml 0 ml Gastric Drainage Total 0 ml 0 ml Vital Signs Date Time Temp Pulse Resp B/P Pulse Ox O2 Delivery O2 Flow Rate FiO2 08/22/16 07:30 100 30 08/22/16 06:00 77 08/22/16 04:11 100 30 08/22/16 04:00 30 08/22/16 04:00 97.8 73 9 106/58 100 08/22/16 04:00 73 08/22/16 02:00 73 08/22/16 00:58 100 30 08/22/16 00:00 86 08/22/16 00:00 30 08/22/16 00:00 98.0 86 13 123/69 100 08/21/16 22:00 69 08/21/16 20:00 30 08/21/16 20:00 97.9 70 13 123/76 100 08/21/16 20:00 70 08/21/16 19:42 100 30 08/21/16 19:00 100 Mechanical Ventilator 30 08/21/16 18:00 66 08/21/16 16:53 100 30 08/21/16 16:45 30 08/21/16 16:00 98.4 65 13 128/70 100 08/21/16 16:00 30 08/21/16 16:00 64 08/21/16 14:15 100 100 08/21/16 14:00 69 08/21/16 13:10 100 100 08/21/16 12:00 98.6 85 11 105/63 100 08/21/16 12:00 30 08/21/16 12:00 85 (Miguelina Walsh) -: 08/21/16 0313 08/22/16 0435 Microbiology 08/21/16 Gram Stain - Final, Resulted 08/21/16 Sputum Culture - Preliminary, Resulted Staphylococcus Aureus Tubes & Lines: [place] (Miguelina Walsh) Physical Exam General Appearance: Well Developed, Comfortable Appearance Remarks intubated, eyes open (Miguelina Walsh) Throat Throat Exam: Oral Mucosa [place] & Moist (Miguelina Walsh) Neck Neck Remarks trach, some bleeding post procedure (Miguelina Walsh) Pulmonary Resp Exam: Breath Sounds Equal, Crackles (Miguelina Walsh) Cardiology CV Exam: Regular, Normal Sinus Rhythm (Miguelina Walsh) Gastrointestinal/Abdomen GI Exam: Non-Tender, Bowel Sounds Present GI Remarks obese + PEG, new (Miguelina Walsh) Musculoskeletal MS Exam: Joints Intact, Normal Tone, Unable to Ambulate (Miguelina Walsh) Integumentary Skin Exam: Warm, Dry (Miguelina Walsh) Extremeties Extremities Exam: Pedal Pulses Palpable, Moderate Edema, Dependent Edema ( Miguelina Walsh) Neurologic Neuro Exam: Unresponsive, Sedated Neuro Remarks right side flaccid (Miguelina Walsh) Assessment/Plan Discussed Condition With: Parent, Daughter Assessment Summary: CHRIS/Acute Renal Failure, Acute Tubular Necrosis, Fluid/ Volume Overload, Hypertension Problem List: (1) Elevated serum creatinine Plan: may have underlying CKD, imaging showing signs of chronic renal disease her creatinine is worse but she is making urine it is possible she may require dialysis if urine output drops, but overall prognosis is poor at this time continue diuresis with Diuril 500 BID, she has negative fluid balance avoid sodium bicarbonate due to fluid overload and hypernatremia avoid IVF and nephrotoxic medications daily renal panel she is non oliguric, monitor output (2) Hypernatremia Plan: stable, on diuril BID increase free water with tube feeding (3) Hypertensive emergency Plan: BP is better continue oral medications avoid NEGRITO due to CHRIS and angioedema (4) Thalamic hemorrhage Plan: due to hypertensive crisis neurosurgery following, non surgical management (5) Respiratory failure Plan: s/p trach, on CPAP ween if able (Miguelina Walsh) Plan patient was seen and examined. Diuril changed to once daily. Hopefully we can avoid dialysis. Avoid nephrotoxins. She had tracheostomy and PEG tube placements. (Jamal Salazar MD) Problem Qualifiers (1) Respiratory failure: Qualified Code: J96.00 - Acute respiratory failure, unspecified whether with hypoxia or hypercapnia Miguelina Walsh Aug 22, 2016 10:53 Jamal Salazar MD Aug 22, 2016 17:20
[2016-08-22 10:56] LABS: HEMATOCRIT 28.4 % (35.0-46.0); MEAN CELL VOLUME 86.3 FL (80.0-100.0); MEAN CORPUSCULAR HEMOGLOBIN 26.5 PG (27.0-34.0); MEAN CORPUSCULAR HGB CONC 30.7 % (32.0-36.0); PLATELET COUNT 181 TH/MM3 (150-450); RED BLOOD COUNT 3.29 MIL/MM3 (4.00-5.30); RED CELL DISTRIBUTION WIDTH 13.6 % (11.6-17.2); REVIEW FLAG FINAL; WHITE BLOOD COUNT 20.5 TH/MM3 (4.0-11.0)
[2016-08-22] MEDS: cefTRIAXone INJ 1,000 MG in SODIUM CHLORIDE 0.9% INJ 100 ML IV SCH (11:46)
[2016-08-22] MEDS: HEPARIN SODIUM - SQ 10,000 UNITS/ML VIAL SQ SCH ×2 (11:46→19:46)
--- NOTE | 2016-08-22 13:27 | HHI.PR ---
Subjective Subjective Notes On MV via trach KERON Alexander at bedside Objective Vitals/I&O Vital Signs Date Time Temp Pulse Resp B/P Pulse Ox O2 Delivery O2 Flow Rate FiO2 08/22/16 11:30 97 T-piece 08/22/16 07:30 30 08/22/16 06:00 77 08/22/16 04:00 97.8 9 106/58 Labs Laboratory Tests Test 08/22/16 08/22/16 04:35 10:33 Sodium Level 147 Potassium Level 4.5 Chloride Level 112 Carbon Dioxide Level 18.7 Anion Gap 16 Blood Urea Nitrogen 78 Creatinine 4.40 Estimat Glomerular Filtration 12 Rate Random Glucose 168 Calcium Level 8.9 Total Bilirubin 0.4 Aspartate Amino Transf 43 (AST/SGOT) Alanine Aminotransferase 58 (ALT/SGPT) Alkaline Phosphatase 94 Total Protein 6.4 Albumin 2.0 Random Vancomycin Level 29.7 White Blood Count 20.5 Red Blood Count 3.29 Hemoglobin 8.7 Hematocrit 28.4 Mean Corpuscular Volume 86.3 Mean Corpuscular Hemoglobin 26.5 Mean Corpuscular Hemoglobin 30.7 Concent Red Cell Distribution Width 13.6 Platelet Count 181 Mean Platelet Volume 10.0 Date/Time Procedure Status Source Growth 08/21/16 15:00 Gram Stain - Final Resulted Sputum Endotracheal 08/21/16 15:00 Sputum Culture - Preliminary Resulted Staphylococcus Aureus 08/20/16 09:15 Aerobic Blood Culture - Preliminary Resulted Blood Peripheral NO GROWTH IN 2 DAYS 08/20/16 09:15 Anaerobic Blood Culture - Preliminary Resulted Blood Peripheral NO GROWTH IN 2 DAYS 08/20/16 08:30 Urine Culture - Final Complete Urine Catheterized Urine Escherichia Coli Cardiovascular: Regular Lungs: Clear Abdomen: Non-distended, Non-tender, Other (PEG in place ) Extremities: No edema Narrative Exam Trach in place with minimal bloody drainage on gauze A/P Assessment and Plan 56 year old female POD1 trach placement -Trach in place without complications -Continue routine trach care -Vent per [facility] -GS will sign off; please call with ??s Attending Note - Dr. Bass Minimal drainage around tracheostomy The exam, history, and the medical decision-making described in the above note were completed with the assistance of the mid-level provider. I reviewed and agree with the findings presented. I attest that I had a [id number] encounter with the patient on the same day, and personally performed and documented my assessment and findings in the medical record. Nupur Paz Aug 22, 2016 13:27 Amor Bass MD Aug 23, 2016 15:07
--- NOTE | 2016-08-22 13:27 | HHI.GIFU ---
Subjective Remarks Pt in chair, in no apparent distress. Per RN TF running, pt is tolerating. ( Augusta Zimmerman) Objective Vitals I&O Vital Signs Date Time Temp Pulse Resp B/P Pulse Ox O2 Delivery O2 Flow Rate FiO2 08/22/16 11:30 97 T-piece 08/22/16 07:30 100 30 08/22/16 06:00 77 08/22/16 04:11 100 30 08/22/16 04:00 30 08/22/16 04:00 97.8 73 9 106/58 100 08/22/16 04:00 73 08/22/16 02:00 73 08/22/16 00:58 100 30 08/22/16 00:00 86 08/22/16 00:00 30 08/22/16 00:00 98.0 86 13 123/69 100 08/21/16 22:00 69 08/21/16 20:00 30 08/21/16 20:00 97.9 70 13 123/76 100 08/21/16 20:00 70 08/21/16 19:42 100 30 08/21/16 19:00 100 Mechanical Ventilator 30 08/21/16 18:00 66 08/21/16 16:53 100 30 08/21/16 16:45 30 08/21/16 16:00 98.4 65 13 128/70 100 08/21/16 16:00 30 08/21/16 16:00 64 08/21/16 14:15 100 100 08/21/16 14:00 69 I/O 08/21/16 08/21/16 08/21/16 08/22/16 08/22/16 08/22/16 07:00 15:00 23:00 07:00 15:00 23:00 Intake Total 721 ml 724 ml 553 ml 1022 ml Output Total 800 ml 1000 ml 700 ml 725 ml Balance -79 ml -276 ml -147 ml 297 ml IV Total 121 ml 124 ml 103 ml 96 ml Tube Feeding 0 ml 150 ml 266 ml Tube Irrigant 60 ml Other 600 ml 600 ml 300 ml 600 ml Output Urine Total 800 ml 1000 ml 700 ml 725 ml Stool Total 0 ml 0 ml 0 ml Gastric Drainage Total 0 ml 0 ml 0 ml # Bowel Movements 1 Laboratory Laboratory Tests Test 08/22/16 08/22/16 04:35 10:33 Sodium Level 147 Potassium Level 4.5 Chloride Level 112 Carbon Dioxide Level 18.7 Anion Gap 16 Blood Urea Nitrogen 78 Creatinine 4.40 Estimat Glomerular Filtration 12 Rate Random Glucose 168 Calcium Level 8.9 Total Bilirubin 0.4 Aspartate Amino Transf 43 (AST/SGOT) Alanine Aminotransferase 58 (ALT/SGPT) Alkaline Phosphatase 94 Total Protein 6.4 Albumin 2.0 Random Vancomycin Level 29.7 White Blood Count 20.5 Red Blood Count 3.29 Hemoglobin 8.7 Hematocrit 28.4 Mean Corpuscular Volume 86.3 Mean Corpuscular Hemoglobin 26.5 Mean Corpuscular Hemoglobin 30.7 Concent Red Cell Distribution Width 13.6 Platelet Count 181 Mean Platelet Volume 10.0 Date/Time Procedure Status Source Growth 08/21/16 15:00 Gram Stain - Final Resulted Sputum Endotracheal 08/21/16 15:00 Sputum Culture - Preliminary Resulted Staphylococcus Aureus 08/20/16 09:15 Aerobic Blood Culture - Preliminary Resulted Blood Peripheral NO GROWTH IN 2 DAYS 08/20/16 09:15 Anaerobic Blood Culture - Preliminary Resulted Blood Peripheral NO GROWTH IN 2 DAYS 08/20/16 08:30 Urine Culture - Final Complete Urine Catheterized Urine Escherichia Coli Physical Exam HEENT:normocephalic; atraumatic; hyperglossia, no jaundice. trach CHEST: CTA CARDIAC: RRR ABDOMEN: Soft, obese, nontender; bowel sounds are present in all four quadrants. PEG site clean. EXTREMITIES: No clubbing, cyanosis, or edema. SKIN: Normal; no rash; no jaundice. BRANCH CHIEF: nonverbal (Augusta Zimmerman) Assessment and Plan Plan ASSESSMENT - dysphagia - pt with hx HTN, CVA, need for ventilator. s/p trach, PEG placement. TF running, pt tolerating. PLAN - TF per nutrition - GI will sign off, please reconsult if needed This pt seen by myself and DR Donahue and this note is written on his behalf ( Augusta Zimmerman) Physician Comments Seen and examined, plan as above. Please notify us if needed. (Danielle Donahue MD) Augusta Zimmerman Aug 22, 2016 13:27 Danielle Donahue MD Aug 22, 2016 17:00
[2016-08-22] MEDS: diphenhydrAMINE HCL 50 MG/ML VIAL ONE ×2 (20:23→20:33)
[2016-08-22] MEDS ORDERED: diphenhydrAMINE HCL 50 MG/ML VIAL IV SCH (22:30)
[2016-08-23] VITALS (20 sets, daily range): BP systolic 114–175; BP diastolic 63–95; PULSE 71–105; RESP 10–20; TEMP 97.9–98.8; O2SAT 95–100
[2016-08-23] MEDS: NIFEdipine 10 MG CAP PO SCH ×5 (00:28→23:59)
[2016-08-23] MEDS: FREE WATER G-TUBE SCH ×7 (00:29→23:59)
[2016-08-23] MEDS: CHLORHEXIDINE GLUCONATE 2 % 1 PACK (2 CLOTHS) TOP SCH (02:03)
[2016-08-23] MEDS: diphenhydrAMINE HCL 50 MG/ML VIAL IV SCH ×4 (03:57→22:49)
[2016-08-23 04:41] LABS: AUTOMATED NEUTROPHIL # 20.4 TH/MM3 (1.8-7.7); BASOPHIL # 0.1 TH/MM3 (0-0.2); BASOPHIL % 0.3 % (0.0-2.0); EOSINOPHIL # 0.1 TH/MM3 (0-0.4); EOSINOPHIL % 0.4 % (0.0-4.0); LYMPH % 5.5 % (9.0-44.0); LYMPHOCYTE # 1.3 TH/MM3 (1.0-4.8); MEAN CELL VOLUME 86.4 FL (80.0-100.0); MEAN CORPUSCULAR HEMOGLOBIN 26.1 PG (27.0-34.0); MEAN CORPUSCULAR HGB CONC 30.3 % (32.0-36.0); MONO % 4.8 % (0.0-8.0); PLATELET COUNT 230 TH/MM3 (150-450); RED BLOOD COUNT 3.36 MIL/MM3 (4.00-5.30); RED CELL DISTRIBUTION WIDTH 13.8 % (11.6-17.2); WHITE BLOOD COUNT 22.9 TH/MM3 (4.0-11.0)
[2016-08-23 04:48] LABS: HEMO FLAGS AUTO DIFF
[2016-08-23 05:01] LABS: POTASSIUM 3.8 MEQ/L (3.5-5.1)
[2016-08-23] MEDS: hydrALAZINE HCL 100 MG TAB PO SCH ×3 (05:07→22:49)
[2016-08-23] MEDS: cloNIDine HCL 0.2 MG TAB PO SCH ×3 (05:07→22:49)
[2016-08-23] MEDS: INSULIN ASPART SUPPLEMENTAL SCALE SQ SCH ×4 (06:34→20:33)
[2016-08-23] MEDS: DEXTROSE 50% IN WATER 50 ML VIAL(D50) IV PRN (06:38)
[2016-08-23] MEDS: DEXAMETHASONE SOD PHOS 4 MG/ML VIAL IV PUSH SCH ×4 (06:54→23:59)
--- NOTE | 2016-08-23 06:54 | HHI.CCPN ---
Subjective Remarks/Hospital Course 56-year-old female presents with last seen normal at 5:30am. On arrival to emergency department the patient has right sided weakness but outside stroke alert window, nonverbal. The CAT scan of the head showed acute left basal ganglia hemorrhagic stroke. She was intubated by an ER attending for an airway protection admitted to ICU. 08/13 events overnight, the ICH sites remains the same. 08/14: BP control acceptable. Moves 4 limbs to stimulation, does not follow commands. 08/15: Glucose uncontrolled; start bid levemir and SSI. 08/16: Glucose intolerance persists. Increase Levemir. Increase HTN meds, add schedules hydralazine. 08/17: Glucose control problematic. Add more oral BP control. Largely unresponsive. 08/18: poor neurologic exam persists. glycemic control better. hypertension still uncontrolled requiring nicardipine. Cr stable, and likely chronic. acidosis persists despite bicarb infusion. 08/19: no change in neurologic exam. blood pressure under better control, and slightly hypotensive this morning. off nicardipine. Cr stable. FENa 8% consistent with an intrinsic renal process. renal ultrasound consistent with chronic renal disease. hypernatremia and free water deficit persists despite aggressive free water replacement, as well as total volume overload persists. non-gapped acidosis also persists. 08/20: Spiking fever Tmax 101.3, source unclear. White count 22.9 increased from yesterday. Send panculture, start Zosyn while waiting for cultures to be resulted. Sodium steadily improving 151 today uterine output 4 L BUN 66 creatinine 3.95. Partial eye opening spontaneously, right side flaccid, moves left side spontaneously per RN. Tongue is swollen protuberant 08/21: Fever downtrending, but WBC increased to 25.1, Na 148 BUN/Cr 68/4.15. Placed on Diuril by nephrology for significant fluid overload 08/22: Improving neuro exam, follows commands on left upper and lower extremity. BUN/creatinine increasing today 87/4.3 Will reduce Diuril. May need HD. Cleared for sq heparin by Dr. Tran 08/23 still bad angioedema, hypoglycemic last night Objective Vital Signs Date Time Temp Pulse Resp B/P Pulse Ox O2 Delivery O2 Flow Rate FiO2 08/23/16 06:00 77 08/23/16 04:00 30 08/23/16 04:00 97.9 20 149/80 100 08/22/16 11:30 T-piece Intake and Output 08/22/16 08/22/16 08/23/16 08:00 16:00 00:00 Intake Total 1022 ml 1115 ml 920 ml Output Total 725 ml 800 ml 750 ml Balance 297 ml 315 ml 170 ml Result Diagram: 08/23/16 0404 08/23/16 0404 Other Results Microbiology Date/Time Procedure Status Source Growth 08/20/16 08:00 Gram Stain - Final Complete Sputum Expectorated Sputum 08/20/16 08:00 Sputum Culture - Final Complete Staphylococcus Aureus 08/20/16 08:30 Urine Culture - Final Complete Urine Catheterized Urine Escherichia Coli Imaging Last [address] 08/12/161718 Signed Impressions: Service Date/Time: Friday, August 12, 2016 17:28 - CONCLUSION: 1. Focal acute hemorrhagic infarct involving the left thalamic area measuring 2.3 cm in diameter. This is most likely a hypertensive infarct. 2. Bilateral chronic white matter changes. Arcenio Cuenca MD Chest X-Ray 08/12/161718 Signed Impressions: Service Date/Time: Friday, August 12, 2016 18:09 - CONCLUSION: 1. Tip of the endotracheal tube in the right mainstem bronchus origin. Suggest retracting it 2-3 cm. 2. Left lower lobe infiltrate. 3. Cardiomegaly. Benito Blanco Jr., MD Objective Remarks GENERAL: Middle aged patient. Intubated, off all sedation for several days SKIN: Warm and dry. HEAD: Normocephalic. PERRL, 2 mm. EYES: No scleral icterus. No injection or drainage. ENT: Tongue is protuberant/angioedema NECK: trachea midline.Orally intubated. CARDIOVASCULAR: normal rate, regular rhythm. sinus by tele. RESPIRATORY: equal chest rise, psv 5/5/40%. GASTROINTESTINAL: Abdomen soft, non-tender, nondistended. MUSCULOSKELETAL: No cyanosis, or edema. Well perfused. EXTREMITIES: No clubbing cyanosis or edema. NEURO: Pupils 3 mm, reactive. Opens eyes spontaneously. Follows commands on left upper and lower extremity, withdraws 4 limbs A/P Assessment and Plan Assessment: 56yF with hypertensive BG hemorrhage and persistent encephalopathy, course complicated by respiratory failure and unable to wean from mechanical ventilation, angioedema, renal failure, hyperglycemia, and hypertensive emergency. She remains significantly volume overloaded, but her free water deficit persists. She remains very critically ill at this time and off pathway. Plan by Systems: Neuro: Acute hemorrhagic basal ganglia stroke Acute encephalopathy - ICH due to uncontrolled blood pressure - Continue Neuro checks per unit protocol - Neurosurgery following, Dr. Tran - Blood pressure control, SBP goal less 160 - Neuro exam slowly improving, now following commands from left upper and lower extremity - PT/OT. Out of bed to chair daily Resp: Acute hypoxic and hypercarbic Respiratory failure Angioedema with significant tongue swelling - SBT daily, s/p Trach with Dr. Bass 08/22/16 - Decadron, Benadryl 08/20-08/22 - vent bundle, nebs - wean fio2 for spo2 > 90%. - Sputum culture MSSA Cardiovascular: Hypertensive Emergency - Nifedipine 10 q6h. Use Labetalol and hydralazine when necessary - Clonidine 0.2mg po q8h. - continue hydralazine 100mg po q8h - off Cardene, holding metoprolol 50mg po q12h - DCd lisinopril given facial/tongue swelling and renal dysfunction Renal: Kidney failure- likely chronic stage IV. - renal ultrasound consistent with chronic kidney disease - FENa 8.1% on 08/18 - continue flores and strict i/o's. - Nephrology consult appreciated - All IV fluids stopped by nephrology due to severe fluid overload - Diuril 500 mg IV BID started 08/20/16, creatinine has increased to 4.3 today. Change Diuril to 500 mg daily FEN/GI: Hypernatremia Volume overload Acute protein calorie malnutrition- mild Non-anion gap metabolic acidosis - See above for fluid management per nephrology - TF at goal - Daily bmp Heme/ID: MSSA pneumonia Escherichia coli UTI Sepsis - F/U sputum urine and blood culture - Line site without evidence of infection, chest x-ray from yesterday clear - Currently on empiric Zosyn 2.25 g every 6 hours, vancomycin pharmacy dosing. DC both and start Rocephin 1 GM Daily - 08/20 urine culture E Coli, sputum MSSA Endo: Poorly controlled DM Hyperglycemia of Critical Illness - Holding glipizide in the ICU - Levemir 25 q12 to decrease to 15 every 12 hours - medium SSI - improved control Prophylaxis: DVT: SCDs, pharmacologic contraindicated given ICH GI: Pepcid Lines: - TLC Dcd 08/20 - art line-DCd 08/20/16 - flores Dispo: - remain in the ICU. very critically ill. In multiorgan failure including neuro , respiratory and renal systems, now with new onset sepsis This patient remains critically ill with one or more organ systems which are or may become a threat to life. I have spent in excess of 35 minutes discontinuously in the care and management of this patient. This time is exclusive of procedures, and includes, but is not limited to, evaluation of the patient, review of the medical record, discussions with family, consultants, nursing staff, or respiratory therapy, and documentation in the medical record. Gatito Milian MD Aug 23, 2016 06:54
[2016-08-23] MEDS ORDERED: FAMOTIDINE 20 MG/2 ML VIAL IV PUSH SCH (09:00)
[2016-08-23 09:13] LABS: BANDS 2 % (0-6); EOSINOPHILS 1 % (0-4); METAMYELOCYTES 2 % (0-1); MYELOCYTES 1 % (0-0); NEUTROPHIL # MANUAL DIFF 20.8 TH/MM3 (1.8-7.7); POLYS (SEG NEUTROPHILS) 86 % (16-70); WBC DIFF SAMPLE 100
[2016-08-23 09:14] LABS: PLATELET ESTIMATE SMEAR NORMAL (NORMAL); PLATELET MORPHOLOGY NORMAL (NORMAL)
[2016-08-23] MEDS: DOCUSATE SODIUM 50 MG/SENNA 8.6 MG TAB PO SCH ×2 (09:14→19:49)
[2016-08-23] MEDS: HEPARIN SODIUM - SQ 10,000 UNITS/ML VIAL SQ SCH ×2 (09:14→19:52)
[2016-08-23] MEDS: MAGNESIUM HYDROXIDE SUSP 30 ML CUP PO PRN (09:14)
[2016-08-23 09:15] LABS: SCAN/DIFF FINAL DIFF MANUAL
[2016-08-23] MEDS: cefTRIAXone INJ 1,000 MG in SODIUM CHLORIDE 0.9% INJ 100 ML IV SCH (09:15)
[2016-08-23] MEDS: CHLOROTHIAZIDE SOD 500 MG VIAL IV SCH (09:21)
[2016-08-23] MEDS: SODIUM CHLORIDE 0.9% FLUSH 10 ML FLUSH SCH ×2 (09:21→19:52)
[2016-08-23] MEDS: INSULIN DETEMIR 100 UNITS/ML VIAL SQ SCH ×2 (09:25→20:31)
--- NOTE | 2016-08-23 13:17 | HHI.NPPN ---
Subjective Complaints: Obesity General Problems: Edema Renal Failure: Acute History of Present Illness 56 y/o AAF admitted 08/12 with hemorrhagic CVA and hypertensive crisis. PMH of HTN, hyperlipidemia, and DM 2. Her creatinine on arrival was 3.3. Additional Remarks Patient is awake, with T-piece, not in distress. Review of Systems General General Remarks unable to obtain Objective Data Data 08/22/16 08/23/16 19:00 07:00 Intake Total 1115 ml 1866 ml Output Total 800 ml 1550 ml Balance 315 ml 316 ml IV Total 167 ml 75 ml Tube Feeding 348 ml 591 ml Other 600 ml 1200 ml Output Urine Total 800 ml 1550 ml Stool Total 0 ml # Bowel Movements 0 Vital Signs Date Time Temp Pulse Resp B/P Pulse Ox O2 Delivery O2 Flow Rate FiO2 08/23/16 10:00 90 08/23/16 09:40 100 T-piece 6.00 35 08/23/16 08:00 30 08/23/16 08:00 98.0 90 12 136/68 100 08/23/16 08:00 79 08/23/16 06:00 77 08/23/16 04:00 30 08/23/16 04:00 97.9 95 20 149/80 100 08/23/16 04:00 95 08/23/16 02:00 96 08/23/16 00:59 100 30 08/23/16 00:00 30 08/23/16 00:00 71 08/23/16 00:00 98.1 71 10 115/63 100 08/22/16 22:00 70 08/22/16 21:27 100 30 08/22/16 20:00 30 08/22/16 20:00 97.7 74 11 133/71 100 08/22/16 20:00 76 08/22/16 18:01 100 30 08/22/16 18:00 73 08/22/16 16:00 98.2 68 13 139/97 100 08/22/16 16:00 68 08/22/16 14:00 69 -: 08/23/16 0404 08/23/16 0404 Tubes & Lines: [place] Physical Exam General Appearance: No Acute Distress, Comfortable Throat Throat Exam: Oral Mucosa [place] & Moist Pulmonary Resp Exam: Breath Sounds Equal, Crackles Cardiology CV Exam: Regular, Normal Sinus Rhythm Gastrointestinal/Abdomen GI Exam: Non-Tender, Bowel Sounds Present Musculoskeletal MS Exam: Joints Intact, Normal Tone, Unable to Ambulate Integumentary Skin Exam: Warm, Dry Extremeties Extremities Exam: Moderate Edema, Dependent Edema Neurologic Neuro Exam: Awake Assessment/Plan Discussed Condition With: Parent, Daughter Assessment Summary: CHRIS/Acute Renal Failure, Acute Tubular Necrosis, Fluid/ Volume Overload, Hypertension Problem List: (1) Elevated serum creatinine Plan: may have underlying CKD, imaging showing signs of chronic renal disease her creatinine is worse but she is making urine it is possible she may require dialysis if urine output drops, but overall prognosis is poor at this time continue diuresis with Diuril 500 BID, she has negative fluid balance avoid sodium bicarbonate due to fluid overload and hypernatremia avoid IVF and nephrotoxic medications Creatinine is almost same. Avoid Nephrotoxins. (2) Hypernatremia Plan: stable, on diuril BID increase free water with tube feeding (3) Hypertensive emergency Plan: BP is better continue oral medications avoid NEGRITO due to CHRIS and angioedema (4) Thalamic hemorrhage Plan: due to hypertensive crisis neurosurgery following, non surgical management (5) Respiratory failure Plan: s/p trach, on CPAP ween if able Problem Qualifiers (1) Respiratory failure: Qualified Code: J96.00 - Acute respiratory failure, unspecified whether with hypoxia or hypercapnia Darrell King MD Aug 23, 2016 13:17
[2016-08-23] MEDS: FAMOTIDINE 20 MG/2 ML VIAL IV PUSH SCH (19:52)
[2016-08-24] VITALS (15 sets, daily range): BP systolic 136–168; BP diastolic 75–84; PULSE 67–98; RESP 9–29; TEMP 98.2–99.2; O2SAT 100
[2016-08-24 03:35] LABS: AUTOMATED NEUTROPHIL # 19.2 TH/MM3 (1.8-7.7); BASOPHIL % 0.1 % (0.0-2.0); EOSINOPHIL % 0.1 % (0.0-4.0); HEMATOCRIT 24.7 % (35.0-46.0); LYMPH % 5.2 % (9.0-44.0); LYMPHOCYTE # 1.1 TH/MM3 (1.0-4.8); MEAN CELL VOLUME 84.9 FL (80.0-100.0); MEAN CORPUSCULAR HEMOGLOBIN 26.6 PG (27.0-34.0); MEAN CORPUSCULAR HGB CONC 31.4 % (32.0-36.0); MONO % 5.1 % (0.0-8.0); NEUT % 89.5 % (16.0-70.0); PLATELET COUNT 196 TH/MM3 (150-450); RED BLOOD COUNT 2.91 MIL/MM3 (4.00-5.30); RED CELL DISTRIBUTION WIDTH 13.3 % (11.6-17.2); WHITE BLOOD COUNT 21.4 TH/MM3 (4.0-11.0)
[2016-08-24 03:38] LABS: HEMO FLAGS AUTO DIFF
[2016-08-24 03:48] LABS: ALKALINE PHOSPHATASE 115 U/L (45-117); ALT (GPT) 56 U/L (10-53); ANION GAP 9 MEQ/L (5-15); AST (GOT) 38 U/L (15-37); BICARBONATE 28.7 MEQ/L (21.0-32.0); BLOOD UREA NITROGEN 97 MG/DL (7-18); CHLORIDE 109 MEQ/L (98-107); GLOMERULAR FILTRATION RATE 13 ML/MIN (>89); MAGNESIUM 3.3 MG/DL (1.5-2.5); POTASSIUM 4.1 MEQ/L (3.5-5.1); SODIUM (NA) 147 MEQ/L (136-145); TOTAL BILIRUBIN ADULT 0.3 MG/DL (0.2-1.0)
--- NOTE | 2016-08-24 03:58 | RADRPT ---
EXAM DATE/TIME: 08/24/2016 02:39 [facility] COMPARISON: CHEST SINGLE AP, August 22, 2016, 10:07. INDICATIONS : Evaluate after respiratory failure. MEDICAL HISTORY : Diabetes mellitus type II. Hypertension Hypercholesterolemia. CVA SURGICAL HISTORY : None. ENCOUNTER: Subsequent ACUITY: 1 week PAIN SCORE: Non-responsive. LOCATION: Bilateral chest FINDINGS: A single view of the chest demonstrates the lungs to be symmetrically aerated without evidence of mas s, infiltrate or effusion. The tracheostomy tube remains in place. The heart size is mildly enlarged with no perihilar edema. Osseous structures are intact. CONCLUSION: Stable appearance with mild cardiomegaly and tracheostomy tube in place. Amor Uriarte MD on August 24, 2016 at 3:56 Board Certified Radiologist. This report was verified electronically.
[2016-08-24] MEDS: CHLORHEXIDINE GLUCONATE 2 % 1 PACK (2 CLOTHS) TOP SCH (04:00)
[2016-08-24] MEDS: FREE WATER G-TUBE SCH ×6 (04:00→23:38)
[2016-08-24 04:09] LABS: BANDS 1 % (0-6); MYELOCYTES 2 % (0-0); NEUTROPHIL # MANUAL DIFF 19.5 TH/MM3 (1.8-7.7); POLYS (SEG NEUTROPHILS) 88 % (16-70); SCAN/DIFF FINAL DIFF MANUAL; WBC DIFF SAMPLE 100
[2016-08-24 04:10] LABS: PLATELET ESTIMATE SMEAR NORMAL (NORMAL); PLATELET MORPHOLOGY NORMAL (NORMAL)
[2016-08-24 04:11] LABS: TOXIC VACUOLATION PRESENT (NONE SEEN)
[2016-08-24] MEDS: LABETALOL HCL 100 MG/20 ML VIAL IV PUSH PRN ×2 (04:46→19:37)
[2016-08-24 05:12] LABS: BLOOD GAS BASE EXCESS 1.9 mmol/L (-2-2); BLOOD GAS CARBOXYHEMOGLOBIN 1.6 % (0-4); BLOOD GAS HCO3 25 mmol/L (22-26); BLOOD GAS METHEMOGLOBIN 0.7 % (0-2); BLOOD GAS O2 HGB SATURATION 97 % (90-100); BLOOD GAS OXYGEN CONTENT 10.6 Vol % (12.0-20.0); BLOOD GAS PCO2 34 mmHg (38-42); BLOOD GAS PO2 147 mmHg (61-120); BLOOD GAS TOTAL HGB 7.5 G/DL (12.0-16.0); CRITICAL VALUE NO; OXYGEN DEVICE VENTILATOR; TEMP CORR TO 98.6
[2016-08-24 05:13] LABS: DRAW SITE LT RADIAL; FIO2 30 %; NUMBER OF ARTERIAL PUNCTURES 1; STAT NO; ULNAR PULSE PRESENT; VENT SETTINGS CPAP PEEP 5/PS 5
[2016-08-24] MEDS: hydrALAZINE HCL 100 MG TAB PO SCH ×3 (05:27→22:00)
[2016-08-24] MEDS: NIFEdipine 10 MG CAP PO SCH ×4 (05:27→23:38)
[2016-08-24] MEDS: cloNIDine HCL 0.2 MG TAB PO SCH ×3 (05:27→22:00)
[2016-08-24] MEDS: DEXAMETHASONE SOD PHOS 4 MG/ML VIAL IV PUSH SCH ×4 (05:27→23:38)
[2016-08-24] MEDS: diphenhydrAMINE HCL 50 MG/ML VIAL IV SCH ×4 (05:27→22:00)
[2016-08-24] MEDS: SODIUM CHLORIDE 0.9% FLUSH 10 ML FLUSH SCH ×2 (07:48→19:37)
--- NOTE | 2016-08-24 08:38 | HHI.CCPN ---
Subjective Remarks/Hospital Course 56-year-old female presents with last seen normal at 5:30am. On arrival to emergency department the patient has right sided weakness but outside stroke alert window, nonverbal. The CAT scan of the head showed acute left basal ganglia hemorrhagic stroke. She was intubated by an ER attending for an airway protection admitted to ICU. 08/13 events overnight, the ICH sites remains the same. 08/14: BP control acceptable. Moves 4 limbs to stimulation, does not follow commands. 08/15: Glucose uncontrolled; start bid levemir and SSI. 08/16: Glucose intolerance persists. Increase Levemir. Increase HTN meds, add schedules hydralazine. 08/17: Glucose control problematic. Add more oral BP control. Largely unresponsive. 08/18: poor neurologic exam persists. glycemic control better. hypertension still uncontrolled requiring nicardipine. Cr stable, and likely chronic. acidosis persists despite bicarb infusion. 08/19: no change in neurologic exam. blood pressure under better control, and slightly hypotensive this morning. off nicardipine. Cr stable. FENa 8% consistent with an intrinsic renal process. renal ultrasound consistent with chronic renal disease. hypernatremia and free water deficit persists despite aggressive free water replacement, as well as total volume overload persists. non-gapped acidosis also persists. 08/20: Spiking fever Tmax 101.3, source unclear. White count 22.9 increased from yesterday. Send panculture, start Zosyn while waiting for cultures to be resulted. Sodium steadily improving 151 today uterine output 4 L BUN 66 creatinine 3.95. Partial eye opening spontaneously, right side flaccid, moves left side spontaneously per RN. Tongue is swollen protuberant 08/21: Fever downtrending, but WBC increased to 25.1, Na 148 BUN/Cr 68/4.15. Placed on Diuril by nephrology for significant fluid overload 08/22: Improving neuro exam, follows commands on left upper and lower extremity. BUN/creatinine increasing today 87/4.3 Will reduce Diuril. May need HD. Cleared for sq heparin by Dr. Tran 08/23 still bad angioedema, hypoglycemic last night 08/24 drop in hemoglobin to 7.7 from 8.8 without hemodynamic changes Objective Vital Signs Date Time Temp Pulse Resp B/P Pulse Ox O2 Delivery O2 Flow Rate FiO2 08/24/16 07:30 100 T-piece 35 08/24/16 06:00 82 08/24/16 04:00 99.2 29 168/82 08/23/16 09:40 6.00 Intake and Output 08/23/16 08/23/16 08/24/16 08:00 16:00 00:00 Intake Total 946 ml 1660 ml 929 ml Output Total 800 ml 1000 ml 2000 ml Balance 146 ml 660 ml -1071 ml Result Diagram: 08/24/16 0310 08/24/16 0310 Other Results Microbiology Date/Time Procedure Status Source Growth 08/21/16 15:00 Gram Stain - Final Complete Sputum Endotracheal 08/21/16 15:00 Sputum Culture - Final Complete Staphylococcus Aureus Laboratory Tests Test 08/24/16 04:45 Blood Gas Puncture Site LT RADIAL Blood Gas Patient Temperature 98.6 Blood Gas HCO3 25 mmol/L (22-26) Blood Gas Base Excess 1.9 mmol/L (-2-2) Blood Gas Oxygen Saturation 97 % (90-100) Arterial Blood pH 7.49 (7.380-7.420) Arterial Blood Partial 34 mmHg (38-42) Pressure CO2 Arterial Blood Partial 147 mmHg Pressure O2 (61-120) Arterial Blood Oxygen Content 10.6 Vol % (12.0-20.0) Arterial Blood 1.6 % (0-4) Carboxyhemoglobin Arterial Blood Methemoglobin 0.7 % (0-2) Blood Gas Hemoglobin 7.5 G/DL (12.0-16.0) Oxygen Delivery Device VENTILATOR Blood Gas Ventilator Setting CPAP PEEP 5/PS 5 Blood Gas Inspired Oxygen 30 % Imaging Last [address] 08/12/161718 Signed Impressions: Service Date/Time: Friday, August 12, 2016 17:28 - CONCLUSION: 1. Focal acute hemorrhagic infarct involving the left thalamic area measuring 2.3 cm in diameter. This is most likely a hypertensive infarct. 2. Bilateral chronic white matter changes. Arcenio Cuenca MD Chest X-Ray 08/12/161718 Signed Impressions: Service Date/Time: Friday, August 12, 2016 18:09 - CONCLUSION: 1. Tip of the endotracheal tube in the right mainstem bronchus origin. Suggest retracting it 2-3 cm. 2. Left lower lobe infiltrate. 3. Cardiomegaly. Benito Blanco Jr., MD Objective Remarks GENERAL: Middle aged patient. Intubated, off all sedation for several days SKIN: Warm and dry. HEAD: Normocephalic. PERRL, 2 mm. EYES: No scleral icterus. No injection or drainage. ENT: Tongue is protuberant/angioedema NECK: trachea midline.Orally intubated. CARDIOVASCULAR: normal rate, regular rhythm. sinus by tele. RESPIRATORY: equal chest rise, psv 5/5/40%. GASTROINTESTINAL: Abdomen soft, non-tender, nondistended. MUSCULOSKELETAL: No cyanosis, or edema. Well perfused. EXTREMITIES: No clubbing cyanosis or edema. NEURO: Pupils 3 mm, reactive. Opens eyes spontaneously. Follows commands on left upper and lower extremity, withdraws 4 limbs A/P Assessment and Plan Assessment: 56yF with hypertensive BG hemorrhage and persistent encephalopathy, course complicated by respiratory failure and unable to wean from mechanical ventilation, angioedema, renal failure, hyperglycemia, and hypertensive emergency. She remains significantly volume overloaded, but her free water deficit persists. She remains very critically ill at this time and off pathway. Plan by Systems: Neuro: Acute hemorrhagic basal ganglia stroke Acute encephalopathy - ICH due to uncontrolled blood pressure - Continue Neuro checks per unit protocol - Neurosurgery following, Dr. Tran - Blood pressure control, SBP goal less 160 - Neuro exam slowly improving, now following commands from left upper and lower extremity - PT/OT. Out of bed to chair daily Resp: Acute hypoxic and hypercarbic Respiratory failure Angioedema with significant tongue swelling - SBT daily, s/p Trach with Dr. Bass 08/22/16 - Decadron, Benadryl 08/20-08/22 - vent bundle, nebs - wean fio2 for spo2 > 90%. - Sputum culture MSSA - Tolerates TPs during the day CPAP overnight - We'll attempt to avoid CPAP tonight Cardiovascular: Hypertensive Emergency - Nifedipine 10 q6h. Use Labetalol and hydralazine when necessary - Clonidine 0.2mg po q8h. - continue hydralazine 100mg po q8h - off Cardene, holding metoprolol 50mg po q12h - DCd lisinopril given facial/tongue swelling and renal dysfunction Renal: Kidney failure- likely chronic stage IV. - renal ultrasound consistent with chronic kidney disease - FENa 8.1% on 08/18 - continue flores and strict i/o's. - Nephrology consult appreciated - All IV fluids stopped by nephrology due to severe fluid overload - Diuril 500 mg IV BID started 08/20/16, creatinine has increased to 4.3 today. Change Diuril to 500 mg daily FEN/GI: Hypernatremia Volume overload Acute protein calorie malnutrition- mild Non-anion gap metabolic acidosis - See above for fluid management per nephrology - TF at goal - Daily bmp Heme/ID: MSSA pneumonia Escherichia coli UTI Sepsis - F/U sputum urine and blood culture - Line site without evidence of infection, chest x-ray from yesterday clear - Currently on Rocephin 1 GM Daily - 08/20 urine culture E Coli, sputum MSSA - Anemia, drop of H&H from 8.8-7.7, will repeat H&H at noon Endo: Poorly controlled DM Hyperglycemia of Critical Illness - Holding glipizide in the ICU - Levemir 25 q12 to decrease to 15 every 12 hours - medium SSI - improved control DVT GI prophylaxis - Teds SCDs, will start subcutaneous heparin, ICH more than 72 hours old - Pepcid Lines: - TLC Dcd 08/20 - art line-DCd 08/20/16 - flores Critical Care: The total critical care time was 35 minutes. Time to perform other separately billable procedures was not included in the critical care time. Gatito Milian MD Aug 24, 2016 08:38
[2016-08-24] MEDS: CHLOROTHIAZIDE SOD 500 MG VIAL IV SCH (09:00)
[2016-08-24] MEDS: INSULIN ASPART SUPPLEMENTAL SCALE SQ SCH ×4 (09:03→22:02)
[2016-08-24] MEDS: FAMOTIDINE 20 MG/2 ML VIAL IV PUSH SCH ×2 (09:04→19:37)
[2016-08-24] MEDS: DOCUSATE SODIUM 50 MG/SENNA 8.6 MG TAB PO SCH ×2 (09:04→19:38)
[2016-08-24] MEDS: INSULIN DETEMIR 100 UNITS/ML VIAL SQ SCH ×2 (09:04→22:02)
[2016-08-24] MEDS: HEPARIN SODIUM - SQ 10,000 UNITS/ML VIAL SQ SCH ×3 (09:05→22:00)
[2016-08-24] MEDS: cefTRIAXone INJ 1,000 MG in SODIUM CHLORIDE 0.9% INJ 100 ML IV SCH (11:29)
--- NOTE | 2016-08-24 11:36 | HHI.NPPN ---
Subjective Complaints: Obesity General Problems: Edema Renal Failure: Acute History of Present Illness 56 y/o AAF admitted 08/12 with hemorrhagic CVA and hypertensive crisis. PMH of HTN, hyperlipidemia, and DM 2. Her creatinine on arrival was 3.3. Additional Remarks Patient is awake, with T-piece, not in distress, remain confused. Review of Systems General General Remarks unable to obtain Objective Data Data 08/23/16 08/24/16 19:00 07:00 Intake Total 1660 ml 1762 ml Output Total 1000 ml 3025 ml Balance 660 ml -1263 ml IV Total 108 ml 0 ml Tube Feeding 301 ml 562 ml FFP 651 ml Other 600 ml 1200 ml Output Urine Total 1000 ml 3025 ml # Bowel Movements 0 3 Vital Signs Date Time Temp Pulse Resp B/P Pulse Ox O2 Delivery O2 Flow Rate FiO2 08/24/16 10:00 74 08/24/16 08:00 35 08/24/16 08:00 77 08/24/16 08:00 98.2 77 11 147/75 100 08/24/16 07:30 100 T-piece 35 08/24/16 06:00 82 08/24/16 04:03 100 30 08/24/16 04:00 99.2 98 29 168/82 100 08/24/16 04:00 30 08/24/16 04:00 98 08/24/16 02:00 70 08/24/16 00:00 98.8 76 10 136/78 100 08/24/16 00:00 76 08/24/16 00:00 30 08/23/16 23:43 100 30 08/23/16 22:00 100 08/23/16 21:17 100 30 08/23/16 20:00 98.5 77 11 168/95 100 08/23/16 20:00 77 08/23/16 18:00 82 08/23/16 16:00 98.2 100 14 159/82 100 08/23/16 16:00 100 08/23/16 14:00 85 08/23/16 13:25 98.8 90 13 114/71 98 08/23/16 13:10 98.3 94 13 143/63 95 08/23/16 12:20 98.3 105 16 162/85 100 08/23/16 12:05 98.2 98 14 175/77 100 08/23/16 12:00 98 08/23/16 12:00 98.2 94 13 143/63 95 -: 08/24/16 0310 08/24/16 0310 Tubes & Lines: [place] Physical Exam General Appearance: No Acute Distress, Comfortable Throat Throat Exam: Oral Mucosa [place] & Moist Pulmonary Resp Exam: Breath Sounds Equal, Crackles Cardiology CV Exam: Regular, Normal Sinus Rhythm Gastrointestinal/Abdomen GI Exam: Non-Tender, Bowel Sounds Present Musculoskeletal MS Exam: Joints Intact, Normal Tone, Unable to Ambulate Integumentary Skin Exam: Warm, Dry Extremeties Extremities Exam: Moderate Edema, Dependent Edema Neurologic Neuro Exam: Awake Assessment/Plan Discussed Condition With: Parent, Daughter Assessment Summary: CHRIS/Acute Renal Failure, Acute Tubular Necrosis, Fluid/ Volume Overload, Hypertension Problem List: (1) Elevated serum creatinine Plan: may have underlying CKD, imaging showing signs of chronic renal disease her creatinine is worse but she is making urine it is possible she may require dialysis if urine output drops, but overall prognosis is poor at this time continue diuresis with Diuril 500 BID, she has negative fluid balance avoid sodium bicarbonate due to fluid overload and hypernatremia avoid IVF and nephrotoxic medications BUN and Creatinine is almost same. Avoid Nephrotoxins. Follow the urine out put and BMP. Dr. Salazar will follow in AM. (2) Hypernatremia Plan: stable, on diuril BID increase free water with tube feeding (3) Hypertensive emergency Plan: BP is better continue oral medications avoid NEGRITO due to CHRIS and angioedema (4) Thalamic hemorrhage Plan: due to hypertensive crisis neurosurgery following, non surgical management (5) Respiratory failure Plan: s/p trach, on CPAP ween if able Problem Qualifiers (1) Respiratory failure: Qualified Code: J96.00 - Acute respiratory failure, unspecified whether with hypoxia or hypercapnia Darrell King MD Aug 24, 2016 11:36
[2016-08-24 12:05] LABS: REVIEW FLAG FINAL
[2016-08-24] MEDS: hydrALAZINE HCL 20 MG/ML VIAL IV PUSH PRN ×2 (18:10→23:38)
[2016-08-25] VITALS (21 sets, daily range): BP systolic 142–187; BP diastolic 76–92; PULSE 64–82; RESP 10–17; TEMP 98.2–98.6; O2SAT 92–100
[2016-08-25] MEDS: CHLORHEXIDINE GLUCONATE 2 % 1 PACK (2 CLOTHS) TOP SCH (03:45)
[2016-08-25 03:54] LABS: AUTOMATED NEUTROPHIL # 15.7 TH/MM3 (1.8-7.7); BASOPHIL # 0.1 TH/MM3 (0-0.2); BASOPHIL % 0.3 % (0.0-2.0); HEMATOCRIT 23.5 % (35.0-46.0); HEMO FLAGS AUTO DIFF; LYMPH % 4.6 % (9.0-44.0); LYMPHOCYTE # 0.8 TH/MM3 (1.0-4.8); MEAN CELL VOLUME 85.5 FL (80.0-100.0); MEAN CORPUSCULAR HEMOGLOBIN 26.7 PG (27.0-34.0); MEAN CORPUSCULAR HGB CONC 31.2 % (32.0-36.0); MONO % 6.7 % (0.0-8.0); NEUT % 88.4 % (16.0-70.0); PLATELET COUNT 173 TH/MM3 (150-450); RED BLOOD COUNT 2.75 MIL/MM3 (4.00-5.30); RED CELL DISTRIBUTION WIDTH 13.3 % (11.6-17.2); WHITE BLOOD COUNT 17.8 TH/MM3 (4.0-11.0)
--- NOTE | 2016-08-25 04:01 | RADRPT ---
EXAM DATE/TIME: 08/25/2016 03:00 [facility] COMPARISON: CHEST SINGLE AP, August 24, 2016, 2:39. INDICATIONS : Short of breath. MEDICAL HISTORY : Diabetes mellitus type II. Hypertension Hypercholesterolemia. CVA. SURGICAL HISTORY : None. ENCOUNTER: Subsequent ACUITY: 1 week PAIN SCORE: 0/10 LOCATION: Bilateral chest FINDINGS: The lungs are clear without infiltrate, nodule, or mass. There is no appreciable pleural effusion fo r technique. Heart and mediastinum are unremarkable. Tracheostomy tube is present in satisfactory po sition. CONCLUSION: No acute cardiopulmonary disease. Khadijah Jacbo MD on August 25, 2016 at 4:00 Board Certified Radiologist. This report was verified electronically.
[2016-08-25 04:37] LABS: ALT (GPT) 52 U/L (10-53); ANION GAP 12 MEQ/L (5-15); AST (GOT) 35 U/L (15-37); BICARBONATE 26.5 MEQ/L (21.0-32.0); BLOOD UREA NITROGEN 90 MG/DL (7-18); CHLORIDE 109 MEQ/L (98-107); GLOMERULAR FILTRATION RATE 13 ML/MIN (>89); MAGNESIUM 3.2 MG/DL (1.5-2.5); POTASSIUM 4.5 MEQ/L (3.5-5.1); SODIUM (NA) 147 MEQ/L (136-145)
[2016-08-25 04:43] LABS: ALKALINE PHOSPHATASE 104 U/L (45-117); TOTAL BILIRUBIN ADULT 0.2 MG/DL (0.2-1.0)
[2016-08-25 05:04] LABS: METAMYELOCYTES 1 % (0-1); MYELOCYTES 1 % (0-0); NEUTROPHIL # MANUAL DIFF 15.7 TH/MM3 (1.8-7.7); POLYS (SEG NEUTROPHILS) 86 % (16-70); WBC DIFF SAMPLE 100
[2016-08-25 05:05] LABS: SCAN/DIFF FINAL DIFF MANUAL
[2016-08-25 05:06] LABS: PLATELET ESTIMATE SMEAR NORMAL (NORMAL); PLATELET MORPHOLOGY NORMAL (NORMAL); TOXIC VACUOLATION PRESENT (NONE SEEN)
[2016-08-25 05:46] LABS: BLOOD GAS BASE EXCESS 2.5 mmol/L (-2-2); BLOOD GAS CARBOXYHEMOGLOBIN 1.5 % (0-4); BLOOD GAS HCO3 26 mmol/L (22-26); BLOOD GAS METHEMOGLOBIN 0.9 % (0-2); BLOOD GAS O2 HGB SATURATION 97 % (90-100); BLOOD GAS OXYGEN CONTENT 12.5 Vol % (12.0-20.0); BLOOD GAS PCO2 36 mmHg (38-42); BLOOD GAS PO2 192 mmHg (61-120); BLOOD GAS TOTAL HGB 8.8 G/DL (12.0-16.0); CRITICAL VALUE NO; OXYGEN DEVICE VENTILATOR; TEMP CORR TO 98.6
[2016-08-25 05:47] LABS: DRAW SITE RT RADIAL; FIO2 40 %; NUMBER OF ARTERIAL PUNCTURES 1; STAT NO; ULNAR PULSE PRESENT; VENT SETTINGS CPAP EPAP 5/PS 5
[2016-08-25] MEDS: cloNIDine HCL 0.2 MG TAB PO SCH ×3 (06:09→20:07)
[2016-08-25] MEDS: NIFEdipine 10 MG CAP PO SCH ×4 (06:09→22:26)
[2016-08-25] MEDS: HEPARIN SODIUM - SQ 10,000 UNITS/ML VIAL SQ SCH ×3 (06:09→20:07)
[2016-08-25] MEDS: hydrALAZINE HCL 100 MG TAB PO SCH ×3 (06:09→20:07)
[2016-08-25] MEDS: DEXAMETHASONE SOD PHOS 4 MG/ML VIAL IV PUSH SCH ×4 (06:09→22:25)
[2016-08-25] MEDS: diphenhydrAMINE HCL 50 MG/ML VIAL IV SCH ×4 (06:09→22:25)
[2016-08-25] MEDS: INSULIN ASPART SUPPLEMENTAL SCALE SQ SCH ×4 (06:10→20:09)
[2016-08-25] MEDS: FREE WATER G-TUBE SCH ×6 (06:10→22:26)
[2016-08-25] MEDS: DOCUSATE SODIUM 50 MG/SENNA 8.6 MG TAB PO SCH ×2 (08:30→20:07)
[2016-08-25] MEDS: hydrALAZINE HCL 20 MG/ML VIAL IV PUSH PRN ×3 (08:32→22:25)
[2016-08-25] MEDS: SODIUM CHLORIDE 0.9% FLUSH 10 ML FLUSH SCH ×2 (08:32→20:10)
[2016-08-25] MEDS: FAMOTIDINE 20 MG/2 ML VIAL IV PUSH SCH ×2 (08:33→20:07)
[2016-08-25] MEDS: CHLOROTHIAZIDE SOD 500 MG VIAL IV SCH (08:34)
[2016-08-25] MEDS: INSULIN DETEMIR 100 UNITS/ML VIAL SQ SCH ×2 (08:39→20:09)
[2016-08-25] MEDS: cefTRIAXone INJ 1,000 MG in SODIUM CHLORIDE 0.9% INJ 100 ML IV SCH (11:04)
--- NOTE | 2016-08-25 11:08 | HHI.NPPN ---
Subjective Complaints: Obesity Renal Failure: Acute Interval History She is up in chair. Renal function is better. Hypernatremia persists. (Miguelina Walsh) Review of Systems General General Remarks unable to obtain (Miguelina Walsh) Objective Data Data 08/24/16 08/25/16 19:00 07:00 Intake Total 1024 ml 1782 ml Output Total 1500 ml 2450 ml Balance -476 ml -668 ml IV Total 100 ml Tube Feeding 324 ml 582 ml Other 600 ml 1200 ml Output Urine Total 1500 ml 2450 ml # Bowel Movements 2 2 Vital Signs Date Time Temp Pulse Resp B/P Pulse Ox O2 Delivery O2 Flow Rate FiO2 08/25/16 10:00 82 08/25/16 09:00 35 08/25/16 08:00 30 08/25/16 08:00 73 08/25/16 08:00 98.2 73 17 181/91 95 08/25/16 07:55 94 T-piece 6.00 40 08/25/16 07:50 96 40 08/25/16 06:00 79 08/25/16 05:09 92 40 08/25/16 04:45 92 30 08/25/16 04:30 95 T-piece 6.00 35 08/25/16 04:03 94 30 08/25/16 04:00 30 08/25/16 04:00 75 08/25/16 04:00 98.4 75 10 152/78 95 08/25/16 02:00 67 08/25/16 00:03 97 30 08/25/16 00:00 30 08/25/16 00:00 75 08/25/16 00:00 98.4 75 13 142/76 97 08/24/16 22:00 81 08/24/16 20:00 72 08/24/16 20:00 98.7 72 9 156/76 100 08/24/16 20:00 30 08/24/16 19:53 100 30 08/24/16 18:00 71 08/24/16 16:00 67 08/24/16 16:00 98.2 67 10 163/80 100 08/24/16 16:00 35 08/24/16 14:00 69 08/24/16 12:00 81 08/24/16 12:00 35 08/24/16 12:00 98.5 81 13 163/84 100 (Miguelina Walsh) -: 08/25/16 0335 08/25/16 0335 Imaging Last 72 hours Impressions Chest X-Ray 08/25/16 0600 Signed Impressions: Service Date/Time: Thursday, August 25, 2016 03:00 - CONCLUSION: No acute cardiopulmonary disease. Khadijah Jacob MD Chest X-Ray 08/24/16 06 Signed Impressions: Service Date/Time: Wednesday, August 24, 2016 02:39 - CONCLUSION: Stable appearance with mild cardiomegaly and tracheostomy tube in place. Amor Urairte MD Tubes & Lines: [place] (Miguelina Walsh) Physical Exam General Appearance: No Acute Distress, Comfortable, Obese Appearance Remarks awake, does follow commands (Miguelina WalshP) Eyes Eye Exam: Pupils Equal (Miguelina Walsh MILK COLLECTOR) Throat Throat Exam: Oral Mucosa [place] & Moist Throat Remarks trach (Miguelina WalshP) Pulmonary Resp Exam: Breath Sounds Equal, Crackles (Miguelina Walsh BMira MILK COLLECTOR) Cardiology CV Exam: Regular, Normal Sinus Rhythm, Good Perfusion (Miguelina Walsh BMira GOODP) Gastrointestinal/Abdomen GI Exam: Non-Tender, Bowel Sounds Present GI Remarks obese + PEG (Miguelina Walsh BMira GOODP) Musculoskeletal MS Exam: Joints Intact, Normal Tone, Unable to Ambulate (Miguelina Walsh BMira MILK COLLECTOR) Integumentary Skin Exam: Warm, Dry (Miguelina Walsh) Extremeties Extremities Exam: Pedal Pulses Palpable, Trace Edema (Miguelina Walsh BMira GOODP) Neurologic Neuro Exam: Awake Neuro Remarks right side flaccid (Miguelina Walsh) Assessment/Plan Assessment Summary: CHRIS/Acute Renal Failure, Acute Tubular Necrosis, Fluid/ Volume Overload, Proteinuria, Hypertension Electrolyte Assessment: Hypernatremia Problem List: (1) Elevated serum creatinine Plan: may have underlying CKD, imaging showing signs of chronic renal disease her creatinine is better today excellent urine output, she has negative fluid balance stop Diuril and monitor response avoid IVF and nephrotoxic medications on rocephin for UTI obtain daily renal panel (2) Hypernatremia Plan: unchanged continue free water with tube feeding stop diuril monitor (3) Hypertensive emergency Plan: BP is better continue oral medications avoid NEGRITO due to CHRIS and angioedema (4) Thalamic hemorrhage Plan: due to hypertensive crisis neurosurgery following, non surgical management (5) Respiratory failure Plan: s/p trach with T piece appreciate respiratory therapy assistance (Miguelina Walsh) Plan patient was seen and examined. Agree with above assessment and plan. Renal function is stable. Discussed with Dr. Dorado. Almaz Rich. (Jamal Salazar MD) Problem Qualifiers (1) Respiratory failure: Qualified Code: J96.00 - Acute respiratory failure, unspecified whether with hypoxia or hypercapnia Miguelina Walsh Aug 25, 2016 11:08 Jamal Salazar MD Aug 26, 2016 14:49
--- NOTE | 2016-08-25 12:09 | HHI.CCPN ---
Subjective Remarks/Hospital Course 56-year-old female presents with last seen normal at 5:30am. On arrival to emergency department the patient has right sided weakness but outside stroke alert window, nonverbal. The CAT scan of the head showed acute left basal ganglia hemorrhagic stroke. She was intubated by an ER attending for an airway protection admitted to ICU. 08/13 events overnight, the ICH sites remains the same. 08/14: BP control acceptable. Moves 4 limbs to stimulation, does not follow commands. 08/15: Glucose uncontrolled; start bid levemir and SSI. 08/16: Glucose intolerance persists. Increase Levemir. Increase HTN meds, add schedules hydralazine. 08/17: Glucose control problematic. Add more oral BP control. Largely unresponsive. 08/18: poor neurologic exam persists. glycemic control better. hypertension still uncontrolled requiring nicardipine. Cr stable, and likely chronic. acidosis persists despite bicarb infusion. 08/19: no change in neurologic exam. blood pressure under better control, and slightly hypotensive this morning. off nicardipine. Cr stable. FENa 8% consistent with an intrinsic renal process. renal ultrasound consistent with chronic renal disease. hypernatremia and free water deficit persists despite aggressive free water replacement, as well as total volume overload persists. non-gapped acidosis also persists. 08/20: Spiking fever Tmax 101.3, source unclear. White count 22.9 increased from yesterday. Send panculture, start Zosyn while waiting for cultures to be resulted. Sodium steadily improving 151 today uterine output 4 L BUN 66 creatinine 3.95. Partial eye opening spontaneously, right side flaccid, moves left side spontaneously per RN. Tongue is swollen protuberant 08/21: Fever downtrending, but WBC increased to 25.1, Na 148 BUN/Cr 68/4.15. Placed on Diuril by nephrology for significant fluid overload 08/22: Improving neuro exam, follows commands on left upper and lower extremity. BUN/creatinine increasing today 87/4.3 Will reduce Diuril. May need HD. Cleared for sq heparin by Dr. Tran 08/23 still bad angioedema, hypoglycemic last night 08/24 drop in hemoglobin to 7.7 from 8.8 without hemodynamic changes 08/25 Sitting up in stretcher chair. On TP. UO approx 4L. Creat slightly improved to 4.2 Objective Vital Signs Date Time Temp Pulse Resp B/P Pulse Ox O2 Delivery O2 Flow Rate FiO2 08/25/16 10:00 82 08/25/16 09:00 35 08/25/16 08:00 98.2 17 181/91 95 08/25/16 07:55 T-piece 6.00 Intake and Output 08/24/16 08/24/16 08/25/16 08:00 16:00 00:00 Intake Total 833 ml 1024 ml 902 ml Output Total 1025 ml 1500 ml 1200 ml Balance -192 ml -476 ml -298 ml Result Diagram: 08/25/16 0335 08/25/16 0335 Other Results Laboratory Tests Test 08/25/16 05:30 Blood Gas Puncture Site RT RADIAL Blood Gas Patient Temperature 98.6 Blood Gas HCO3 26 mmol/L (22-26) Blood Gas Base Excess 2.5 mmol/L (-2-2) Blood Gas Oxygen Saturation 97 % (90-100) Arterial Blood pH 7.47 (7.380-7.420) Arterial Blood Partial 36 mmHg (38-42) Pressure CO2 Arterial Blood Partial 192 mmHg Pressure O2 (61-120) Arterial Blood Oxygen Content 12.5 Vol % (12.0-20.0) Arterial Blood 1.5 % (0-4) Carboxyhemoglobin Arterial Blood Methemoglobin 0.9 % (0-2) Blood Gas Hemoglobin 8.8 G/DL (12.0-16.0) Oxygen Delivery Device VENTILATOR Blood Gas Ventilator Setting CPAP EPAP 5/PS 5 Blood Gas Inspired Oxygen 40 % Imaging Last [address] 08/12/161718 Signed Impressions: Service Date/Time: Friday, August 12, 2016 17:28 - CONCLUSION: 1. Focal acute hemorrhagic infarct involving the left thalamic area measuring 2.3 cm in diameter. This is most likely a hypertensive infarct. 2. Bilateral chronic white matter changes. Arcenio Cuenca MD Chest X-Ray 08/12/161718 Signed Impressions: Service Date/Time: Friday, August 12, 2016 18:09 - CONCLUSION: 1. Tip of the endotracheal tube in the right mainstem bronchus origin. Suggest retracting it 2-3 cm. 2. Left lower lobe infiltrate. 3. Cardiomegaly. Benito Blanco Jr., MD Objective Remarks GENERAL: Middle aged patient. Sitting up in stretcher chair SKIN: Warm and dry. HEAD: Normocephalic. PERRL, 2 mm. EYES: No scleral icterus. No injection or drainage. ENT: Tongue is protuberant with angioedema NECK: trachea midline.trach with T piece in place CARDIOVASCULAR: normal rate, regular rhythm. sinus by tele. RESPIRATORY: equal chest rise, on TP GASTROINTESTINAL: Abdomen soft, non-tender, nondistended. MUSCULOSKELETAL: No cyanosis, or edema. Well perfused. EXTREMITIES: No clubbing cyanosis or edema. NEURO: Pupils 3 mm, reactive. Opens eyes spontaneously. Follows commands on left upper and lower extremity, withdraws on right A/P Assessment and Plan Assessment: 56yF with hypertensive BG hemorrhage and persistent encephalopathy, course complicated by respiratory failure, angioedema, renal failure, hyperglycemia, and hypertensive emergency. She remains significantly volume overloaded, but her free water deficit persists. She remains very critically ill at this time and off pathway. Plan by Systems: Neuro: Acute hemorrhagic basal ganglia stroke Acute encephalopathy - ICH due to uncontrolled blood pressure - Continue Neuro checks per unit protocol - Neurosurgery following, Dr. Tran - Blood pressure control, SBP goal less 160 - Neuro exam slowly improving, now following commands from left upper and lower extremity - PT/OT. Out of bed to chair daily Resp: Acute hypoxic and hypercarbic Respiratory failure Angioedema with significant tongue swelling - SBT daily, s/p Trach with Dr. Bass 08/22/16 - Decadron, Benadryl, and Pepcid - vent bundle, nebs - wean fio2 for spo2 > 90%. - Sputum culture MSSA - Tolerates TPs-place on TP 06/10 as tolerated - Cardiovascular: Hypertensive Emergency - Nifedipine 10 q6h. Use Labetalol and hydralazine when necessary - Clonidine 0.2mg po q8h. - continue hydralazine 100mg po q8h - off Cardene, holding metoprolol 50mg po q12h - DCd lisinopril given facial/tongue swelling and renal dysfunction Renal: Kidney failure- likely chronic stage IV. - renal ultrasound consistent with chronic kidney disease - FENa 8.1% on 08/18 - continue flores and strict i/o's. - Nephrology consult appreciated - All IV fluids stopped by nephrology due to severe fluid overload - Diuril 500 mg IV BID started 08/20/16, creatinine has increased to 4.3 today. Change Diuril to 500 mg daily 08/22. Will DC today 08/25 -Creat slightly improved FEN/GI: Hypernatremia Volume overload Acute protein calorie malnutrition- mild Non-anion gap metabolic acidosis - See above for fluid management per nephrology - TF at goal - Daily bmp - IV Pepecid Heme/ID: MSSA pneumonia Escherichia coli UTI Sepsis - F/U sputum urine and blood culture - Line site without evidence of infection, chest x-ray from yesterday clear - Currently on Rocephin 1 GM Daily - 08/20 urine culture E Coli, sputum MSSA - Anemia, drop of H&H from 8.8-7.7, will repeat H&H at noon Endo: Poorly controlled DM Hyperglycemia of Critical Illness - Holding glipizide in the ICU - Levemir 15 every 12 hours, increase 20 08/25 - medium SSI DVT GI prophylaxis - Teds SCDs, started subcutaneous heparin, ICH more than 72 hours old - Pepcid Lines: - TLC Dcd 08/20 - art line-DCd 08/20/16 - mark Critical Care: Level 3 Kalpana Dorado MD Aug 25, 2016 12:09
--- NOTE | 2016-08-25 16:28 | RADRPT ---
EXAM DATE/TIME: 08/25/2016 13:11 [facility] COMPARISON: CHEST SINGLE AP, August 25, 2016, 3:00. INDICATIONS : Respiratory disease. MEDICAL HISTORY : Diabetes mellitus type II. Hypertension Hypercholesterolemia. CVA. SURGICAL HISTORY : None. ENCOUNTER: Subsequent ACUITY: 2 weeks PAIN SCORE: Non-responsive. LOCATION: Bilateral chest FINDINGS: Trache tube in good position. The heart is minimally enlarged, pulmonary vascularity normal. There is no evidence of consolidation, pleural effusion or pneumothorax. CONCLUSION: Stable chest with trache in good position. Eddie Smith MD FACR on August 25, 2016 at 16:24 Board Certified Radiologist. This report was verified electronically.
[2016-08-25] MEDS: LABETALOL HCL 100 MG/20 ML VIAL IV PUSH PRN (19:52)
[2016-08-26] VITALS (15 sets, daily range): BP systolic 144–218; BP diastolic 74–118; PULSE 52–104; RESP 11–22; TEMP 97–99.1; O2SAT 100
[2016-08-26] MEDS: CHLORHEXIDINE GLUCONATE 2 % 1 PACK (2 CLOTHS) TOP SCH (04:00)
[2016-08-26 04:05] LABS: ALKALINE PHOSPHATASE 141 U/L (45-117); TOTAL BILIRUBIN ADULT 0.2 MG/DL (0.2-1.0)
[2016-08-26] MEDS: hydrALAZINE HCL 20 MG/ML VIAL IV PUSH PRN ×2 (04:07→10:25)
[2016-08-26] MEDS: FREE WATER G-TUBE SCH ×6 (04:13→23:31)
[2016-08-26 04:22] LABS: ALT (GPT) 64 U/L (10-53); ANION GAP 10 MEQ/L (5-15); AST (GOT) 43 U/L (15-37); BICARBONATE 26.2 MEQ/L (21.0-32.0); BLOOD UREA NITROGEN 94 MG/DL (7-18); CHLORIDE 108 MEQ/L (98-107); GLOMERULAR FILTRATION RATE 13 ML/MIN (>89); POTASSIUM 4.8 MEQ/L (3.5-5.1); SODIUM (NA) 144 MEQ/L (136-145)
[2016-08-26 04:23] LABS: AUTOMATED NEUTROPHIL # 18.1 TH/MM3 (1.8-7.7); BASOPHIL % 0.1 % (0.0-2.0); LYMPH % 3.5 % (9.0-44.0); LYMPHOCYTE # 0.7 TH/MM3 (1.0-4.8); MEAN CELL VOLUME 87.2 FL (80.0-100.0); MEAN CORPUSCULAR HEMOGLOBIN 26.5 PG (27.0-34.0); MEAN CORPUSCULAR HGB CONC 30.4 % (32.0-36.0); MONO % 4.4 % (0.0-8.0); PLATELET COUNT 199 TH/MM3 (150-450); RED BLOOD COUNT 3.32 MIL/MM3 (4.00-5.30); RED CELL DISTRIBUTION WIDTH 13.8 % (11.6-17.2); WHITE BLOOD COUNT 19.7 TH/MM3 (4.0-11.0)
[2016-08-26] MEDS: LABETALOL HCL 100 MG/20 ML VIAL IV PUSH PRN (04:30)
[2016-08-26 04:31] LABS: HEMO FLAGS AUTO DIFF
[2016-08-26] MEDS: cloNIDine HCL 0.2 MG TAB PO SCH ×3 (04:49→21:00)
[2016-08-26] MEDS: hydrALAZINE HCL 100 MG TAB PO SCH ×3 (04:49→21:00)
[2016-08-26] MEDS: DEXAMETHASONE SOD PHOS 4 MG/ML VIAL IV PUSH SCH ×3 (04:49→20:56)
[2016-08-26] MEDS: HEPARIN SODIUM - SQ 10,000 UNITS/ML VIAL SQ SCH ×3 (04:49→21:00)
[2016-08-26] MEDS: NIFEdipine 10 MG CAP PO SCH ×3 (04:49→17:03)
[2016-08-26] MEDS: diphenhydrAMINE HCL 50 MG/ML VIAL IV SCH ×4 (04:49→23:31)
[2016-08-26] MEDS: INSULIN ASPART SUPPLEMENTAL SCALE SQ SCH ×4 (05:05→20:56)
[2016-08-26 05:35] LABS: BANDS 3 % (0-6); METAMYELOCYTES 1 % (0-1); MYELOCYTES 2 % (0-0); NEUTROPHIL # MANUAL DIFF 17.1 TH/MM3 (1.8-7.7); POLYS (SEG NEUTROPHILS) 81 % (16-70); WBC DIFF SAMPLE 100
[2016-08-26 05:36] LABS: PLATELET ESTIMATE SMEAR NORMAL (NORMAL); PLATELET MORPHOLOGY NORMAL (NORMAL); SCAN/DIFF FINAL DIFF MANUAL
[2016-08-26] MEDS ORDERED: cloNIDine HCL 0.2 MG TAB PO SCH (07:00)
--- NOTE | 2016-08-26 07:16 | HHI.CCPN ---
Subjective Remarks/Hospital Course 56-year-old female presents with last seen normal at 5:30am. On arrival to emergency department the patient has right sided weakness but outside stroke alert window, nonverbal. The CAT scan of the head showed acute left basal ganglia hemorrhagic stroke. She was intubated by an ER attending for an airway protection admitted to ICU. 08/13 events overnight, the ICH sites remains the same. 08/14: BP control acceptable. Moves 4 limbs to stimulation, does not follow commands. 08/15: Glucose uncontrolled; start bid levemir and SSI. 08/16: Glucose intolerance persists. Increase Levemir. Increase HTN meds, add schedules hydralazine. 08/17: Glucose control problematic. Add more oral BP control. Largely unresponsive. 08/18: poor neurologic exam persists. glycemic control better. hypertension still uncontrolled requiring nicardipine. Cr stable, and likely chronic. acidosis persists despite bicarb infusion. 08/19: no change in neurologic exam. blood pressure under better control, and slightly hypotensive this morning. off nicardipine. Cr stable. FENa 8% consistent with an intrinsic renal process. renal ultrasound consistent with chronic renal disease. hypernatremia and free water deficit persists despite aggressive free water replacement, as well as total volume overload persists. non-gapped acidosis also persists. 08/20: Spiking fever Tmax 101.3, source unclear. White count 22.9 increased from yesterday. Send panculture, start Zosyn while waiting for cultures to be resulted. Sodium steadily improving 151 today uterine output 4 L BUN 66 creatinine 3.95. Partial eye opening spontaneously, right side flaccid, moves left side spontaneously per RN. Tongue is swollen protuberant 08/21: Fever downtrending, but WBC increased to 25.1, Na 148 BUN/Cr 68/4.15. Placed on Diuril by nephrology for significant fluid overload 08/22: Improving neuro exam, follows commands on left upper and lower extremity. BUN/creatinine increasing today 87/4.3 Will reduce Diuril. May need HD. Cleared for sq heparin by Dr. Tran 08/23 still bad angioedema, hypoglycemic last night 08/24 drop in hemoglobin to 7.7 from 8.8 without hemodynamic changes 08/25 Sitting up in stretcher chair. On TP. UO approx 4L. Creat slightly improved to 4.2 08/26: Remained off vent overnight. Intermittent BP elevation. Will increase Clonidine. Angioedema ? slightly improved. DC Diuril Objective Vital Signs Date Time Temp Pulse Resp B/P Pulse Ox O2 Delivery O2 Flow Rate FiO2 08/26/16 06:00 69 08/26/16 04:00 35 08/26/16 04:00 99.1 12 196/93 100 08/25/16 21:43 T-piece 6.00 Intake and Output 08/25/16 08/25/16 08/26/16 08:00 16:00 00:00 Intake Total 880 ml 994 ml 786 ml Output Total 1250 ml 1100 ml 1100 ml Balance -370 ml -106 ml -314 ml Result Diagram: 08/26/16 0308 08/26/16 0308 Imaging Last [address] 08/12/161718 Signed Impressions: Service Date/Time: Friday, August 12, 2016 17:28 - CONCLUSION: 1. Focal acute hemorrhagic infarct involving the left thalamic area measuring 2.3 cm in diameter. This is most likely a hypertensive infarct. 2. Bilateral chronic white matter changes. Arcenio Cuenca MD Chest X-Ray 08/12/161718 Signed Impressions: Service Date/Time: Friday, August 12, 2016 18:09 - CONCLUSION: 1. Tip of the endotracheal tube in the right mainstem bronchus origin. Suggest retracting it 2-3 cm. 2. Left lower lobe infiltrate. 3. Cardiomegaly. Benito Blanco Jr., MD Objective Remarks GENERAL: Middle aged patient. Lying in bed on TP SKIN: Warm and dry. HEAD: Normocephalic. PERRL, 2 mm. EYES: No scleral icterus. No injection or drainage. ENT: Tongue is protuberant with angioedema ? slight improvement NECK: trachea midline.trach with T piece in place CARDIOVASCULAR: normal rate, regular rhythm. sinus by tele. RESPIRATORY: equal chest rise, on TP GASTROINTESTINAL: Abdomen soft, non-tender, nondistended. MUSCULOSKELETAL: No cyanosis, or edema. Well perfused. EXTREMITIES: No clubbing cyanosis or edema. NEURO: Pupils 3 mm, reactive. Opens eyes spontaneously. Follows commands on left upper and lower extremity, withdraws on right A/P Assessment and Plan Assessment: 56yF with hypertensive BG hemorrhage and persistent encephalopathy, course complicated by respiratory failure, angioedema, renal failure, hyperglycemia, and hypertensive emergency. She remains significantly volume overloaded. She remains very critically ill at this time and off pathway. Plan by Systems: Neuro: Acute hemorrhagic basal ganglia stroke Acute encephalopathy - ICH due to uncontrolled blood pressure - Continue Neuro checks per unit protocol - Neurosurgery following, Dr. Tran - Blood pressure control, SBP goal less 160 - Neuro exam slowly improving, now following commands from left upper and lower extremity - PT/OT. Out of bed to chair daily Resp: Acute hypoxic and hypercarbic Respiratory failure Angioedema with significant tongue swelling - s/p Trach with Dr. Bass 08/22/16 - Remained off vent for 24 hours, continue TP - Decadron, Benadryl, and Pepcid, reduce Decadron to 4 mg IV q12 - vent bundle, nebs, wean fio2 for spo2 > 90%. - Sputum culture MSSA - Pulmonary consult for chronic trach management Cardiovascular: Hypertensive Emergency - Nifedipine 10 q6h. Use Labetalol and hydralazine when necessary - Clonidine 0.2mg po q8h, increase to 0.4 mg po q8 08/26 - continue hydralazine 100mg po q8h - off Cardene, holding metoprolol 50mg po q12h, resume at 25 po [id number] 08/26 - DCd lisinopril given facial/tongue swelling and renal dysfunction Renal: Kidney failure- likely chronic stage IV. - renal ultrasound consistent with chronic kidney disease - FENa 8.1% on 08/18 - continue flores and strict i/o's. - All IV fluids stopped by nephrology due to severe fluid overload - Diuril 500 mg IV BID started 08/20/16, creatinine has increased to 4.3 today. Change Diuril to 500 mg daily 08/22. Will DC today 08/26 -Creat stable at 4.2 FEN/GI: Hypernatremia Volume overload Acute protein calorie malnutrition- mild Non-anion gap metabolic acidosis - See above for fluid management per nephrology - TF at goal - IV Pepcid Heme/ID: MSSA pneumonia Escherichia coli UTI Sepsis - Currently on Rocephin 1 GM Daily - 08/20 urine culture E Coli, sputum MSSA, 08/20 and 08/21 - Anemia, monitor H&H Endo: Poorly controlled DM Hyperglycemia of Critical Illness - Holding glipizide in the ICU - Levemir 15 every 12 hours, increase 20 08/26 - medium SSI DVT GI prophylaxis - Teds SCDs, subcutaneous heparin - Pepcid Lines: - TLC Dcd 08/20 - art line-DCd 08/20/16 - mark Critical Care: Level 3 Kalpana Dorado MD Aug 26, 2016 07:16
[2016-08-26] MEDS: DOCUSATE SODIUM 50 MG/SENNA 8.6 MG TAB PO SCH ×2 (07:36→21:00)
[2016-08-26] MEDS: METOPROLOL TARTRATE 25 MG TAB PO SCH ×3 (08:37→22:00)
[2016-08-26] MEDS: FAMOTIDINE 20 MG/2 ML VIAL IV PUSH SCH ×2 (08:37→20:56)
[2016-08-26] MEDS: SODIUM CHLORIDE 0.9% FLUSH 10 ML FLUSH SCH ×2 (08:38→21:18)
[2016-08-26] MEDS: INSULIN DETEMIR 100 UNITS/ML VIAL SQ SCH ×2 (08:58→20:55)
--- NOTE | 2016-08-26 09:34 | HHI.NSPN ---
(Cinthia Rosas) Note Status Status: Progress Note (Cinthia Rosas) Interval History Interval History Ms. Richey is a 56-year-old female who presents to [place] ED with altered mental status and right side weakness. On arrival her blood pressure in chart was 235/115. Her CT scan of the head showed acute left basal ganglia hemorrhagic stroke. She was intubated by an ER attending for an airway protection admitted to ICU. She is sedated. Does not open eyes or follow commands. On Cardene drip for blood pressure control. 08/14: f/u CT Head 08/13 showed stable findings. With angioedema. Intubated and sedated. 6/2: sedation off, not opening eyes or following commands. 6/3: no significant changes to neuro checks overnight, slightly ?opened eyes, appears to be intermittently moving more 6: remains intubated, no acute events overnight 6: minimal eye opening, not following commands. remains on cardene for bp control, and persistent severe angioedema. 08/19: no changes to neuro status 08/20: opens eyes,withdraws x 4. otherwise no significant neurological changes. for tracheostomy 08/21: for trach and PEG today, nursing reports following commands on right side and tracks. 08/22: mental status improving, more awake, following more commands, s/p trach and PEG 08/23: at bedside reports patient is doing very well, more alert, interactive. angioedema of tongue improving. (Cinthia Rosas) Labs, Micro, & Vital Signs Results Date Time Temp Pulse Resp B/P Pulse Ox O2 Delivery O2 Flow Rate FiO2 08/26/16 08:45 100 T-piece 5.00 40 08/26/16 06:00 69 08/26/16 04:00 72 08/26/16 04:00 35 08/26/16 04:00 99.1 72 12 196/93 100 08/26/16 02:00 70 08/26/16 00:00 35 08/26/16 00:00 72 08/26/16 00:00 98.9 72 12 144/74 100 08/25/16 22:00 64 08/25/16 21:43 100 T-piece 6.00 40 08/25/16 20:00 98.6 70 10 168/92 100 08/25/16 20:00 35 08/25/16 20:00 70 08/25/16 18:00 71 08/25/16 16:00 35 08/25/16 16:00 71 08/25/16 16:00 98.3 71 14 160/81 100 08/25/16 15:01 97 T-piece 6.00 40 08/25/16 14:00 75 08/25/16 12:00 98.5 77 10 187/88 100 08/25/16 12:00 77 08/25/16 12:00 35 08/25/16 10:00 82 08/26/16 07:00 Intake Total 2598 ml Output Total 3600 ml Balance -1002 ml Constitutional Vital Signs Date Time Temp Pulse Resp B/P Pulse Ox O2 Delivery O2 Flow Rate FiO2 08/26/16 08:45 100 T-piece 5.00 40 08/26/16 06:00 69 08/26/16 04:00 72 08/26/16 04:00 35 08/26/16 04:00 99.1 72 12 196/93 100 08/26/16 02:00 70 08/26/16 00:00 35 08/26/16 00:00 72 08/26/16 00:00 98.9 72 12 144/74 100 08/25/16 22:00 64 08/25/16 21:43 100 T-piece 6.00 40 08/25/16 20:00 98.6 70 10 168/92 100 08/25/16 20:00 35 08/25/16 20:00 70 08/25/16 18:00 71 08/25/16 16:00 35 08/25/16 16:00 71 08/25/16 16:00 98.3 71 14 160/81 100 08/25/16 15:01 97 T-piece 6.00 40 08/25/16 14:00 75 08/25/16 12:00 98.5 77 10 187/88 100 08/25/16 12:00 77 08/25/16 12:00 35 08/25/16 10:00 82 08/26/16 07:00 Intake Total 2598 ml Output Total 3600 ml Balance -1002 ml (Cinthia Rosas) Review of Systems/Exam Exam Ms. Richey is awake, alert. Following simple commands. Cranial Nerves: Pupils 2 mm equal, round. angioedema of lip and tongue, which appears improving Neck with tracheostomy on mechanical vent Motor: moving all four extremities, on two point soft restraints Reflexes: plantars silent b/l Cerebellar: cannot assess due to clinical condition (Cinthia Rosas) Medications Current Medications Current Medications Medications (Trade) Dose Ordered Sig/Jones Route PRN Reason Start Time Stop Time Status Last Admin Dose Admin Sodium Chloride (NS Flush) 2 ml UNSCH PRN .XX FLUSH AFTER USING IV ACCESS 08/12/16 18:30 Sodium Chloride (NS Flush) 2 ml BID .XX 08/12/16 21:00 08/26/16 08:38 Acetaminophen (Tylenol) 650 mg Q6H PRN PO PAIN 1-10 AND/OR FEVER >101F 08/12/16 18:30 08/19/16 21:24 Miscellaneous Information 1 Q361D XX 08/12/16 18:30 Chlorhexidine Gluconate (Chlorhexidine 2% Cloth) Taper DAILY@04 TOP 08/13/16 04:00 08/09/17 03:59 08/22/16 00:00 Chlorhexidine Gluconate (Chlorhexidine 2% Cloth) 3 pack UNSCH PRN TOP HYGIENIC CARE 08/12/16 18:30 Senna/Docusate Sodium (Adele-Colace) 1 tab BID PO 08/12/16 21:00 08/25/16 20:07 Magnesium Hydroxide (Milk Of Magnesia Liq) 30 ml Q12H PRN PO MILD - MODERATE CONSTIPATION 08/12/16 18:30 08/23/16 09:14 Sennosides (Senokot) 17.2 mg Q12H PRN PO MODERATE - SEVERE CONSTIPATION 08/12/16 18:30 08/23/16 05:10 Bisacodyl (Dulcolax Supp) 10 mg DAILY PRN RECTAL SEVERE CONSITIPATION 08/12/16 18:30 08/23/16 09:14 Lactulose (Lactulose Liq) 30 ml DAILY PRN PO SEVERE CONSITIPATION 08/12/16 18:30 08/23/16 09:14 Hydralazine HCl (Apresoline Inj) 20 mg Q4H PRN IV PUSH SBP>160, DBP>90 08/12/16 20:30 08/26/16 04:07 Labetalol HCl (Trandate Inj) 10 mg Q4H PRN IV PUSH SBP>160, DBP>90 08/12/16 20:30 08/26/16 04:30 Hydralazine HCl (Apresoline) 100 mg Q8HR PO 08/16/16 07:30 08/26/16 04:49 Dextrose (D50w (Vial) Inj) 50 ml UNSCH PRN IV HYPOGLYCEMIA-SEE COMMENTS 08/17/16 09:15 08/23/16 06:38 Glucagon (Glucagon Inj) 1 mg UNSCH PRN OTHER HYPOGLYCEMIA-SEE COMMENTS 08/17/16 09:15 Water (Free Water) 300 ml Q4HR G-TUBE 08/18/16 20:00 08/26/16 08:00 Nifedipine (Procardia) 10 mg Q6HR PO 08/19/16 12:00 08/26/16 04:49 Terbutaline Sulfate 1 mg 1 mg UNSCH PRN SQ For Extravasation 08/19/16 07:00 Ceftriaxone Sodium/Sodium Chloride (Rocephin Inj/NS Inj) 100 ml @ 200 mls/hr Q24H IV 08/22/16 11:00 08/25/16 11:04 Diphenhydramine HCl (Benadryl Inj) 50 mg Q6H IV 08/23/16 05:00 08/26/16 04:49 Famotidine (Pepcid Inj) 10 mg Q12HR IV PUSH 08/23/16 21:00 08/26/16 08:37 Heparin Sodium (Porcine) (Heparin Inj) 5,000 units Q8HR SQ 08/24/16 14:00 08/26/16 04:49 Dexamethasone Sodium Phosphate (Decadron Inj) 4 mg Q12HR IV PUSH 08/26/16 09:00 08/26/16 08:37 Clonidine (Catapres) 0.4 mg Q8HR PO 08/26/16 14:00 Metoprolol Tartrate (Lopressor) 25 mg Q8HR PO 08/26/16 08:00 08/26/16 08:37 Insulin Detemir (Levemir Inj) 20 units Q12HR SQ 08/26/16 09:00 08/26/16 08:58 (Cinthia Rosas) Medical Decision Making MDM Remarks 56 y/o female with left basal ganglia bleed, most likely hypertensive in etiology, f/u CT Head 08/13 stable ICH Encephalopathy, neuro exam improved EEG 08/15/16 neg for seizures Angioedema, improving (Cinthia Rosas) Plan Plan Remarks cont neuro checks therapy and rehab efforts (Cinthia Rosas) Attending Statement The exam, history, and the medical decision-making described in the above note were completed with the assistance of the mid-level provider. I reviewed and agree with the findings presented. I attest that I had a [id number] encounter with the patient on the same day, and personally performed and documented my assessment and findings in the medical record. (Chris Tran MD) Cinthia Rosas Aug 26, 2016 09:34 Chris Tran MD Aug 26, 2016 20:40
--- NOTE | 2016-08-26 09:40 | HHI.NPPN ---
Subjective Complaints: Obesity General Problems: Edema Renal Failure: Acute Interval History Her T piece was disconnected, oxygen saturations remained at 100% although she was very agitated. Renal function is stable. (Miguelina Walsh) Review of Systems General General Remarks unable to obtain (Miguelina Walsh) Ears, Nose, & Throat ENT Remarks tongue swelling (Miguelina Walsh) Objective Data Data 08/25/16 08/26/16 19:00 07:00 Intake Total 994 ml 1604 ml Output Total 1100 ml 2500 ml Balance -106 ml -896 ml IV Total 113 ml 0 ml Tube Feeding 281 ml 584 ml Tube Irrigant 220 ml Other 600 ml 800 ml Output Urine Total 1100 ml 2500 ml # Bowel Movements 0 2 Vital Signs Date Time Temp Pulse Resp B/P Pulse Ox O2 Delivery O2 Flow Rate FiO2 08/26/16 08:45 100 T-piece 5.00 40 08/26/16 06:00 69 08/26/16 04:00 72 08/26/16 04:00 35 08/26/16 04:00 99.1 72 12 196/93 100 08/26/16 02:00 70 08/26/16 00:00 35 08/26/16 00:00 72 08/26/16 00:00 98.9 72 12 144/74 100 08/25/16 22:00 64 08/25/16 21:43 100 T-piece 6.00 40 08/25/16 20:00 98.6 70 10 168/92 100 08/25/16 20:00 35 08/25/16 20:00 70 08/25/16 18:00 71 08/25/16 16:00 35 08/25/16 16:00 71 08/25/16 16:00 98.3 71 14 160/81 100 08/25/16 15:01 97 T-piece 6.00 40 08/25/16 14:00 75 08/25/16 12:00 98.5 77 10 187/88 100 08/25/16 12:00 77 08/25/16 12:00 35 08/25/16 10:00 82 (Miguelina Walsh) -: 08/26/16 0308 08/26/16 0308 Imaging Last 72 hours Impressions Chest X-Ray 08/25/16 0600 Signed Impressions: Service Date/Time: Thursday, August 25, 2016 03:00 - CONCLUSION: No acute cardiopulmonary disease. Khadijah Jacob MD Chest X-Ray 08/25/16 0000 Signed Impressions: Service Date/Time: Thursday, August 25, 2016 13:11 - CONCLUSION: Stable chest with trache in good position. Eddie Smith MD FACR Chest X-Ray 08/24/16 0600 Signed Impressions: Service Date/Time: Wednesday, August 24, 2016 02:39 - CONCLUSION: Stable appearance with mild cardiomegaly and tracheostomy tube in place. Amor Uriarte MD Tubes & Lines: [place] (JillianMiguelina B. NURSE COORDINATOR) Physical Exam General Appearance: No Acute Distress, Comfortable, Anxious, Obese Appearance Remarks awake, does follow commands (JillianMiguelina B. NURSE COORDINATOR) Eyes Eye Exam: Pupils Equal (JillianMiguelina B. NURSE COORDINATOR) Throat Throat Exam: Oral Mucosa [place] & Moist Throat Remarks angioedema of lips and tongue present, +trach (Jillian,Miguelina B. NURSE COORDINATOR) Pulmonary Resp Exam: Breath Sounds Equal, Crackles (Jillian,Miguelina B. NURSE COORDINATOR) Cardiology CV Exam: Regular, Normal Sinus Rhythm, Good Perfusion (Jillian,Miguelina B. NURSE COORDINATOR) Gastrointestinal/Abdomen GI Exam: Non-Tender, Bowel Sounds Present GI Remarks obese + PEG (Jillian,Miguelina B. NURSE COORDINATOR) Musculoskeletal MS Exam: Joints Intact, Normal Tone, Unable to Ambulate (Jillian,Miguelina B. NURSE COORDINATOR) Integumentary Skin Exam: Warm, Dry (Jillian,Miguelina B. NURSE COORDINATOR) Extremeties Extremities Exam: Pedal Pulses Palpable, Trace Edema (Jillian,Miguelina B. NURSE COORDINATOR) Neurologic Neuro Exam: Awake Neuro Remarks right side flaccid (JillianMiguelina B. NURSE COORDINATOR) Assessment/Plan Assessment Summary: CHRIS/Acute Renal Failure, Acute Tubular Necrosis, Fluid/ Volume Overload, Proteinuria, Hypertension Problem List: (1) Elevated serum creatinine Plan: may have underlying CKD, imaging showing signs of chronic renal disease her creatinine is stable, slightly better today excellent urine output,still with negative fluid balance diuretics were stopped, monitor response avoid IVF and nephrotoxic medications on Rocephin for UTI obtain daily renal panel (2) Hypernatremia Plan: improved continue free water with tube feeding off diuretics monitor (3) Hypertensive emergency Plan: BP is better continue oral medications avoid NEGRITO due to CHRIS and angioedema (4) Thalamic hemorrhage Plan: due to hypertensive crisis neurosurgery following, non surgical management (5) Respiratory failure Plan: s/p trach with T piece appreciate respiratory therapy assistance (Miguelina Walsh) Plan patient was seen and examined. No immediate need for dialysis. Non oliguric. Diuretics held. (Jamal Salazar MD) Problem Qualifiers (1) Respiratory failure: Qualified Code: J96.00 - Acute respiratory failure, unspecified whether with hypoxia or hypercapnia Miguelina Walsh Aug 26, 2016 09:40 Jamal Salazar MD Aug 26, 2016 15:02
[2016-08-26] MEDS: cefTRIAXone INJ 1,000 MG in SODIUM CHLORIDE 0.9% INJ 100 ML IV SCH (10:24)
[2016-08-26] MEDS: ACETAMINOPHEN 325 MG TAB PO PRN (10:25)
[2016-08-26] MEDS ORDERED: cloNIDine HCL 0.2 MG TAB PEG ONE (10:30)
[2016-08-26 21:09] LABS: MEAN CORPUSCULAR HGB CONC 29.8 % (32.0-36.0)
--- NOTE | 2016-08-26 22:04 | MB ---
cc: BIANCA VALENZUELA M.D. DATE OF CONSULTATION: 08/26/2016 REASON FOR CONSULTATION: Respiratory failure, post tracheostomy HISTORY OF PRESENT ILLNESS Ms. Richey is a 56-year-old female post intracranial bleed. CT scan showed evidence of acute left basoganglia hemorrhage or hemorrhagic stroke, initially intubated, mechanically ventilated, subsequent tracheostomy performed. The patient does not relate any history. The history is obtained from her chart. PAST MEDICAL HISTORY Notable for diabetes, hypertension, chronic kidney disease. For previous history, review extensive records for more detail. CURRENT MEDICATIONS 1. Dexamethasone. 2. Insulin. 3. Pepcid. 4. Ceftriaxone. 5. Nifedipine. 6. Morphine. 7. Hydralazine. 8. Nebulized albuterol/ipratropium. PHYSICAL EXAMINATION: The patient opens eyes, however, does not follow commands or respond. VITAL SIGNS: Temperature 98, pulse 60, respirations 18, blood pressure was 168/74. HEENT: Exam unremarkable. Eyes without icterus. Neck: Tracheostomy in place. Chest: No dullness to percussion, clear to auscultation. Cardiac exam: PMI not appreciated, S1-S2 audible, no murmur, no rub. Abdomen: Lax bowel sounds audible. Extremities: No clubbing, cyanosis or edema. IMAGING STUDIES: hest x-ray: No acute abnormality seen. LABORATORY DATA: White count 19,000, hemoglobin 9, hematocrit 29, platelets 199,000. Sodium 144, potassium 4.8, BUN 94, creatinine 4.2. IMPRESSION 1. Respiratory failure 2. Status post tracheostomy. 3. Acute intracranial bleed. 4. Diabetes mellitus. 5. Hypertension. 6. Chronic kidney disease. PLAN: The patient will be maintained on tracheostomy at present, pulmonary toilet undertaken. She is receiving nebulized bronchodilator therapy and appropriately so. Will follow her course along with and when possible remove the tracheostomy tube. Chest x-ray is clear at present. I do thank you for asking me to partake in Ms. Richey's care. Bianca Valenzuela MD WWW/ROSARIO /9:24 PM /9:57 PM
[2016-08-27] VITALS (14 sets, daily range): BP systolic 133–180; BP diastolic 63–86; PULSE 56–78; RESP 9–18; TEMP 98.2–98.7; O2SAT 100
[2016-08-27] MEDS: NIFEdipine 10 MG CAP PO SCH ×4 (00:08→17:39)
[2016-08-27] MEDS: hydrALAZINE HCL 20 MG/ML VIAL IV PUSH PRN ×2 (00:08→09:14)
[2016-08-27] MEDS: FREE WATER G-TUBE SCH ×3 (04:00→17:38)
[2016-08-27] MEDS: CHLORHEXIDINE GLUCONATE 2 % 1 PACK (2 CLOTHS) TOP SCH (04:00)
[2016-08-27 05:10] LABS: AUTOMATED NEUTROPHIL # 21.1 TH/MM3 (1.8-7.7); BASOPHIL # 0.1 TH/MM3 (0-0.2); BASOPHIL % 0.3 % (0.0-2.0); EOSINOPHIL % 0.2 % (0.0-4.0); HEMATOCRIT 31.4 % (35.0-46.0); LYMPH % 5.7 % (9.0-44.0); LYMPHOCYTE # 1.4 TH/MM3 (1.0-4.8); MEAN CELL VOLUME 88.3 FL (80.0-100.0); MEAN CORPUSCULAR HEMOGLOBIN 26.3 PG (27.0-34.0); MONO % 5.2 % (0.0-8.0); NEUT % 88.6 % (16.0-70.0); PLATELET COUNT 228 TH/MM3 (150-450); RED BLOOD COUNT 3.56 MIL/MM3 (4.00-5.30); RED CELL DISTRIBUTION WIDTH 14.5 % (11.6-17.2); WHITE BLOOD COUNT 23.8 TH/MM3 (4.0-11.0)
[2016-08-27] MEDS: HEPARIN SODIUM - SQ 10,000 UNITS/ML VIAL SQ SCH ×3 (05:13→20:45)
[2016-08-27] MEDS: METOPROLOL TARTRATE 25 MG TAB PO SCH ×3 (05:14→20:45)
[2016-08-27] MEDS: diphenhydrAMINE HCL 50 MG/ML VIAL IV SCH ×4 (05:14→22:58)
[2016-08-27] MEDS: cloNIDine HCL 0.2 MG TAB PO SCH ×3 (05:14→20:45)
[2016-08-27] MEDS: hydrALAZINE HCL 100 MG TAB PO SCH ×3 (05:14→20:45)
[2016-08-27 05:18] LABS: HEMO FLAGS AUTO DIFF
[2016-08-27 05:26] LABS: ANION GAP 15 MEQ/L (5-15); AST (GOT) 48 U/L (15-37); BICARBONATE 24.5 MEQ/L (21.0-32.0); BLOOD UREA NITROGEN 85 MG/DL (7-18); CHLORIDE 103 MEQ/L (98-107); GLOMERULAR FILTRATION RATE 15 ML/MIN (>89); MAGNESIUM 3.3 MG/DL (1.5-2.5); POTASSIUM 4.6 MEQ/L (3.5-5.1); SODIUM (NA) 142 MEQ/L (136-145)
[2016-08-27 05:33] LABS: ALKALINE PHOSPHATASE 144 U/L (45-117); ALT (GPT) 85 U/L (10-53); TOTAL BILIRUBIN ADULT 0.3 MG/DL (0.2-1.0)
[2016-08-27] MEDS: INSULIN ASPART SUPPLEMENTAL SCALE SQ SCH ×4 (06:29→21:27)
[2016-08-27 07:04] LABS: BANDS 8 % (0-6); MYELOCYTES 2 % (0-0); NEUTROPHIL # MANUAL DIFF 20.5 TH/MM3 (1.8-7.7); PLATELET ESTIMATE SMEAR NORMAL (NORMAL); PLATELET MORPHOLOGY NORMAL (NORMAL); POLYS (SEG NEUTROPHILS) 76 % (16-70); SCAN/DIFF FINAL DIFF MANUAL; WBC DIFF SAMPLE 100
[2016-08-27] MEDS: SODIUM CHLORIDE 0.9% FLUSH 10 ML FLUSH SCH ×2 (09:00→20:46)
[2016-08-27] MEDS: DEXAMETHASONE SOD PHOS 4 MG/ML VIAL IV PUSH SCH ×2 (09:07→20:45)
[2016-08-27] MEDS: DOCUSATE SODIUM 50 MG/SENNA 8.6 MG TAB PO SCH ×2 (09:08→20:45)
[2016-08-27] MEDS: FAMOTIDINE 20 MG/2 ML VIAL IV PUSH SCH ×2 (09:08→20:45)
[2016-08-27] MEDS: INSULIN DETEMIR 100 UNITS/ML VIAL SQ SCH ×2 (09:08→21:26)
--- NOTE | 2016-08-27 09:29 | PD.TRANSFR ---
Transfer Summary Admission Date August 12, 2016 at 18:05 Admitting Diagnosis intracranial bleed Diagnoses: (1) Hemorrhagic stroke Diagnosis: Principal (2) Left basal ganglia hemorrhage Diagnosis: Principal (3) Acute respiratory failure Diagnosis: Principal (4) HCAP (healthcare-associated pneumonia) Diagnosis: Principal (5) Angioedema Diagnosis: Principal (6) Hypertensive emergency Diagnosis: Principal (7) Hypernatremia Diagnosis: Principal (8) Acute kidney failure Diagnosis: Principal Transfer Summary/Subjective 56-year-old female presents with last seen normal at 5:30am. On arrival to emergency department the patient has right sided weakness but outside stroke alert window, nonverbal. The CAT scan of the head showed acute left basal ganglia hemorrhagic stroke. She was intubated by an ER attending for an airway protection admitted to ICU. 08/13 events overnight, the ICH sites remains the same. 08/14: BP control acceptable. Moves 4 limbs to stimulation, does not follow commands. 08/15: Glucose uncontrolled; start bid levemir and SSI. 08/16: Glucose intolerance persists. Increase Levemir. Increase HTN meds, add schedules hydralazine. 08/17: Glucose control problematic. Add more oral BP control. Largely unresponsive. 08/18: poor neurologic exam persists. glycemic control better. hypertension still uncontrolled requiring nicardipine. Cr stable, and likely chronic. acidosis persists despite bicarb infusion. 08/19: no change in neurologic exam. blood pressure under better control, and slightly hypotensive this morning. off nicardipine. Cr stable. FENa 8% consistent with an intrinsic renal process. renal ultrasound consistent with chronic renal disease. hypernatremia and free water deficit persists despite aggressive free water replacement, as well as total volume overload persists. non-gapped acidosis also persists. 08/20: Spiking fever Tmax 101.3, source unclear. White count 22.9 increased from yesterday. Send panculture, start Zosyn while waiting for cultures to be resulted. Sodium steadily improving 151 today uterine output 4 L BUN 66 creatinine 3.95. Partial eye opening spontaneously, right side flaccid, moves left side spontaneously per RN. Tongue is swollen protuberant 08/21: Fever downtrending, but WBC increased to 25.1, Na 148 BUN/Cr 68/4.15. Placed on Diuril by nephrology for significant fluid overload 08/22: Improving neuro exam, follows commands on left upper and lower extremity. BUN/creatinine increasing today 87/4.3 Will reduce Diuril. May need HD. Cleared for sq heparin by Dr. Tran 08/23 still bad angioedema, hypoglycemic last night 08/24 drop in hemoglobin to 7.7 from 8.8 without hemodynamic changes 08/25 Sitting up in stretcher chair. On TP. UO approx 4L. Creat slightly improved to 4.2 08/26: Remained off vent overnight. Intermittent BP elevation. Will increase Clonidine. Angioedema ? slightly improved. DC Diuril 08/27: Continues to be off vent now more than 72 hr. blood pressure is better controlled. BUN/creatinine improving 85/3.8 urine output 3.5 L in 24 hours. tongue swelling now significantly improved. Follows commands Objective Vital Signs Date Time Temp Pulse Resp B/P Pulse Ox O2 Delivery O2 Flow Rate FiO2 08/27/16 07:23 100 T-piece 4.00 28 08/27/16 06:00 65 08/27/16 04:00 98.4 17 180/83 Intake and Output 08/26/16 08/26/16 08/27/16 08:00 16:00 00:00 Intake Total 818 ml 1108 ml 615 ml Output Total 1400 ml 1400 ml 1200 ml Balance -582 ml -292 ml -585 ml Result Diagram: 08/27/16 0440 08/27/16 0440 Imaging Last [address] 08/12/161718 Signed Impressions: Service Date/Time: Friday, August 12, 2016 17:28 - CONCLUSION: 1. Focal acute hemorrhagic infarct involving the left thalamic area measuring 2.3 cm in diameter. This is most likely a hypertensive infarct. 2. Bilateral chronic white matter changes. Arcenio Cuenca MD Chest X-Ray 08/12/161718 Signed Impressions: Service Date/Time: Friday, August 12, 2016 18:09 - CONCLUSION: 1. Tip of the endotracheal tube in the right mainstem bronchus origin. Suggest retracting it 2-3 cm. 2. Left lower lobe infiltrate. 3. Cardiomegaly. Benito Blanco Jr., MD Objective Remarks GENERAL: Middle aged patient. Lying in bed on TP SKIN: Warm and dry. HEAD: Normocephalic. PERRL, 2 mm. EYES: No scleral icterus. No injection or drainage. ENT: Tongue is protuberant with angioedema now improved NECK: trachea midline.trach with T piece in place CARDIOVASCULAR: normal rate, regular rhythm. sinus by tele. RESPIRATORY: Equal chest rise, on TP GASTROINTESTINAL: Abdomen soft, non-tender, nondistended. MUSCULOSKELETAL: No cyanosis, or edema. Well perfused. EXTREMITIES: No clubbing cyanosis or edema. NEURO: Pupils 3 mm, reactive. Opens eyes spontaneously. Follows commands on left upper and lower extremity, withdraws on right A/P Assessment and Plan Assessment: 56yF with hypertensive BG hemorrhage and persistent encephalopathy, course complicated by respiratory failure, angioedema, renal failure, hyperglycemia, and hypertensive emergency. She remains significantly volume overloaded. She remains very critically ill at this time and off pathway. Plan by Systems: Neuro: Acute hemorrhagic basal ganglia stroke Acute encephalopathy - ICH due to uncontrolled blood pressure - Continue Neuro checks per unit protocol - Neurosurgery following, Dr. Tran - Blood pressure control, SBP goal less 160 - Neuro exam improving, now following commands from left upper and lower extremity - PT/OT. Out of bed to chair daily Resp: Acute hypoxic and hypercarbic Respiratory failure Angioedema with significant tongue swelling, now improving - s/p Trach with Dr. Bass 08/22/16 - Remained off vent for >48 hours hours, continue TP - Decadron, Benadryl, and Pepcid, Decadron to 4 mg IV q12, stop 08/28 - vent bundle, nebs, wean fio2 for spo2 > 90%. - Sputum culture MSSA - Pulmonary consulted for chronic trach management Cardiovascular: Hypertensive Emergency - Nifedipine 10 q6h. Use Labetalol and hydralazine when necessary - Clonidine 0.4mg po q8h - continue hydralazine 100mg po q8h - off Cardene,resumed metoprolol at 25 po [id number] 08/26 - DCd lisinopril given angioedema and renal dysfunction Renal: Kidney failure- likely chronic stage IV. - renal ultrasound consistent with chronic kidney disease - FENa 8.1% on 08/18 - continue flores and strict i/o's. - All IV fluids stopped by nephrology due to severe fluid overload - Diuril 500 mg IV BID started 08/20/16, creatinine has increased to 4.3 today. Change Diuril to 500 mg daily 08/22. Stopped 08/26 - Creat improved to 3.8 FEN/GI: Hypernatremia Volume overload Acute protein calorie malnutrition- mild Non-anion gap metabolic acidosis - See above for fluid management per nephrology - TF at goal - IV Pepcid Heme/ID: MSSA pneumonia Escherichia coli UTI Sepsis - Currently on Rocephin 1 GM Daily - 08/20 urine culture E Coli, sputum MSSA, 08/20 and 08/21 - Anemia, monitor H&H Endo: Poorly controlled DM Hyperglycemia of Critical Illness - Holding glipizide in the ICU - Levemir 20 every 12 hours - medium SSI DVT GI prophylaxis - Teds SCDs, subcutaneous heparin - Pepcid Lines: - TLC Dcd 08/20 - art line-DCd 08/20/16 - flores Critical Care: Level 2 Consult hospitalist to assume care 08/28/16. Transfer to neuro floor. Cleared by neurosurgery Kalpana Marie MD Aug 27, 2016 09:29
--- NOTE | 2016-08-27 10:06 | HHI.NPPN ---
Subjective Complaints: Obesity General Problems: Edema Renal Failure: Acute Interval History She is awake on T piece. Creatinine is better. (Miguelina Walsh) Review of Systems General General Remarks unable to obtain (Miguelina Walsh) Ears, Nose, & Throat ENT Remarks tongue swelling (Miguelina Walsh) Objective Data Data 08/26/16 08/27/16 19:00 07:00 Intake Total 1108 ml 1443 ml Output Total 1400 ml 2100 ml Balance -292 ml -657 ml IV Total 151 ml Tube Feeding 357 ml 543 ml Other 600 ml 900 ml Output Urine Total 1400 ml 2100 ml # Bowel Movements 0 0 Vital Signs Date Time Temp Pulse Resp B/P Pulse Ox O2 Delivery O2 Flow Rate FiO2 08/27/16 07:23 100 T-piece 4.00 28 08/27/16 06:00 65 08/27/16 04:00 98.4 64 17 180/83 100 08/27/16 04:00 64 08/27/16 02:00 62 08/27/16 00:00 56 08/27/16 00:00 98.7 56 18 177/86 100 08/26/16 22:00 58 08/26/16 20:00 64 08/26/16 20:00 98.6 64 19 176/84 100 08/26/16 19:50 100 T-piece 35 08/26/16 18:00 52 08/26/16 16:00 61 08/26/16 16:00 97.9 61 11 163/78 100 08/26/16 14:00 65 08/26/16 12:00 66 08/26/16 12:00 97.0 66 12 151/77 100 08/26/16 11:00 69 158/78 (Miguelina Walsh) -: 08/27/16 0440 08/27/16 0440 Tubes & Lines: [place] (Miguelina Walsh) Physical Exam General Appearance: No Acute Distress, Comfortable, Anxious, Obese Appearance Remarks awake, does follow commands (Miguelina Walsh) Eyes Eye Exam: Pupils Equal (Miguelina Walsh) Throat Throat Exam: Oral Mucosa [place] & Moist Throat Remarks angioedema of lips and tongue present, +trach (Miguelina Walsh) Pulmonary Resp Exam: Breath Sounds Equal, Crackles (Miguelina Walsh) Cardiology CV Exam: Regular, Normal Sinus Rhythm, Good Perfusion (Miguelina Walsh) Gastrointestinal/Abdomen GI Exam: Non-Tender, Bowel Sounds Present GI Remarks obese + PEG (Miguelina Walsh) Musculoskeletal MS Exam: Joints Intact, Normal Tone, Unable to Ambulate (Miguelina Walsh) Integumentary Skin Exam: Warm, Dry (Miguelina Walsh) Extremeties Extremities Exam: Pedal Pulses Palpable, Trace Edema (Miguelina Walsh) Neurologic Neuro Exam: Awake Neuro Remarks right side flaccid (Miguelina Walsh) Assessment/Plan Assessment Summary: CHRIS/Acute Renal Failure, Acute Tubular Necrosis, Fluid/ Volume Overload, Proteinuria, Hypertension Problem List: (1) Elevated serum creatinine Plan: may have underlying CKD, imaging showing signs of chronic renal disease her creatinine is better today excellent urine output,still with negative fluid balance off diuretics avoid IVF and nephrotoxic medications on Rocephin for UTI obtain daily renal panel (2) Hypernatremia Plan: improved continue free water with tube feeds but rate reduced. off diuretics monitor (3) Hypertensive emergency Plan: BP is better continue oral medications avoid NEGRITO due to CHRIS and angioedema (4) Thalamic hemorrhage Plan: due to hypertensive crisis neurosurgery following, non surgical management (5) Respiratory failure Plan: s/p trach with T piece appreciate respiratory therapy assistance (Miguelina Walsh) Plan patient was seen and examined. Renal function has improved. Reduce the amount of free water. Non oliguric. Off diuretics. (Jamal Salazar MD) Problem Qualifiers (1) Respiratory failure: Qualified Code: J96.00 - Acute respiratory failure, unspecified whether with hypoxia or hypercapnia Miguelina Walsh Aug 27, 2016 10:06 Jamal Salazar MD Aug 27, 2016 19:37
[2016-08-27] MEDS: cefTRIAXone INJ 1,000 MG in SODIUM CHLORIDE 0.9% INJ 100 ML IV SCH (11:54)
--- NOTE | 2016-08-27 14:29 | HHI.NSPN ---
(Cinthia Rosas) Note Status Status: Progress Note (Cinthia Rosas) Interval History Interval History Ms. Richey is a 56-year-old female who presents to [facility] ED with altered mental status and right side weakness. On arrival her blood pressure in chart was 235/115. Her CT scan of the head showed acute left basal ganglia hemorrhagic stroke. She was intubated by an ER attending for an airway protection admitted to ICU. She is sedated. Does not open eyes or follow commands. On Cardene drip for blood pressure control. 08/14: f/u CT Head 08/13 showed stable findings. With angioedema. Intubated and sedated. 08/15: sedation off, not opening eyes or following commands. 08/16: no significant changes to neuro checks overnight, slightly ?opened eyes, appears to be intermittently moving more 08/17: remains intubated, no acute events overnight 08/18: minimal eye opening, not following commands. remains on cardene for bp control, and persistent severe angioedema. 08/19: no changes to neuro status 08/20: opens eyes,withdraws x 4. otherwise no significant neurological changes. for tracheostomy 08/21: for trach and PEG today, nursing reports following commands on right side and tracks. 08/22: mental status improving, more awake, following more commands, s/p trach and PEG 08/26: at bedside reports patient is doing very well, more alert, interactive. angioedema of tongue improving. 08/27: no changes to neuro checks, (Cinthia Rosas) Labs, Micro, & Vital Signs Results Date Time Temp Pulse Resp B/P Pulse Ox O2 Delivery O2 Flow Rate FiO2 08/27/16 14:00 69 08/27/16 12:00 98.4 64 9 154/75 100 08/27/16 12:00 64 08/27/16 10:00 62 08/27/16 08:00 98.6 58 10 150/78 100 08/27/16 08:00 58 08/27/16 07:23 100 T-piece 4.00 28 08/27/16 06:00 65 08/27/16 04:00 98.4 64 17 180/83 100 08/27/16 04:00 64 08/27/16 02:00 62 08/27/16 00:00 56 08/27/16 00:00 98.7 56 18 177/86 100 08/26/16 22:00 58 08/26/16 20:00 64 08/26/16 20:00 98.6 64 19 176/84 100 08/26/16 19:50 100 T-piece 35 08/26/16 18:00 52 08/26/16 16:00 61 08/26/16 16:00 97.9 61 11 163/78 100 08/27/16 07:00 Intake Total 2551 ml Output Total 3500 ml Balance -949 ml Constitutional Vital Signs Date Time Temp Pulse Resp B/P Pulse Ox O2 Delivery O2 Flow Rate FiO2 08/27/16 14:00 69 08/27/16 12:00 98.4 64 9 154/75 100 08/27/16 12:00 64 08/27/16 10:00 62 08/27/16 08:00 98.6 58 10 150/78 100 08/27/16 08:00 58 08/27/16 07:23 100 T-piece 4.00 28 08/27/16 06:00 65 08/27/16 04:00 98.4 64 17 180/83 100 08/27/16 04:00 64 08/27/16 02:00 62 08/27/16 00:00 56 08/27/16 00:00 98.7 56 18 177/86 100 08/26/16 22:00 58 08/26/16 20:00 64 08/26/16 20:00 98.6 64 19 176/84 100 08/26/16 19:50 100 T-piece 35 08/26/16 18:00 52 08/26/16 16:00 61 08/26/16 16:00 97.9 61 11 163/78 100 08/27/16 07:00 Intake Total 2551 ml Output Total 3500 ml Balance -949 ml (Cinthia Rosas) Review of Systems/Exam Exam Ms. Richey is awake, alert. Following simple commands. Cranial Nerves: Pupils 2 mm equal, round. angioedema of lip and tongue, which appears improving Neck with tracheostomy on mechanical vent Motor: moving all four extremities, on two point soft restraints Reflexes: plantars silent b/l Cerebellar: cannot assess due to clinical condition (Cinthia Rosas) Medications Current Medications Current Medications Medications (Trade) Dose Ordered Sig/Jones Route PRN Reason Start Time Stop Time Status Last Admin Dose Admin Sodium Chloride (NS Flush) 2 ml UNSCH PRN .XX FLUSH AFTER USING IV ACCESS 08/12/16 18:30 Sodium Chloride (NS Flush) 2 ml BID .XX 08/12/16 21:00 08/27/16 09:00 Acetaminophen (Tylenol) 650 mg Q6H PRN PO PAIN 1-10 AND/OR FEVER >101F 08/12/16 18:30 08/26/16 10:25 Miscellaneous Information 1 Q361D XX 08/12/16 18:30 Chlorhexidine Gluconate (Chlorhexidine 2% Cloth) Taper DAILY@04 TOP 08/13/16 04:00 08/09/17 03:59 08/22/16 00:00 Chlorhexidine Gluconate (Chlorhexidine 2% Cloth) 3 pack UNSCH PRN TOP HYGIENIC CARE 08/12/16 18:30 Senna/Docusate Sodium (Adele-Colace) 1 tab BID PO 08/12/16 21:00 08/27/16 09:08 Magnesium Hydroxide (Milk Of Magnesia Liq) 30 ml Q12H PRN PO MILD - MODERATE CONSTIPATION 08/12/16 18:30 08/23/16 09:14 Sennosides (Senokot) 17.2 mg Q12H PRN PO MODERATE - SEVERE CONSTIPATION 08/12/16 18:30 08/23/16 05:10 Bisacodyl (Dulcolax Supp) 10 mg DAILY PRN RECTAL SEVERE CONSITIPATION 08/12/16 18:30 08/23/16 09:14 Lactulose (Lactulose Liq) 30 ml DAILY PRN PO SEVERE CONSITIPATION 08/12/16 18:30 08/23/16 09:14 Hydralazine HCl (Apresoline Inj) 20 mg Q4H PRN IV PUSH SBP>160, DBP>90 08/12/16 20:30 08/27/16 09:14 Labetalol HCl (Trandate Inj) 10 mg Q4H PRN IV PUSH SBP>160, DBP>90 08/12/16 20:30 08/26/16 04:30 Hydralazine HCl (Apresoline) 100 mg Q8HR PO 08/16/16 07:30 08/27/16 14:12 Dextrose (D50w (Vial) Inj) 50 ml UNSCH PRN IV HYPOGLYCEMIA-SEE COMMENTS 08/17/16 09:15 08/23/16 06:38 Glucagon (Glucagon Inj) 1 mg UNSCH PRN OTHER HYPOGLYCEMIA-SEE COMMENTS 08/17/16 09:15 Nifedipine (Procardia) 10 mg Q6HR PO 08/19/16 12:00 08/27/16 11:55 Terbutaline Sulfate 1 mg 1 mg UNSCH PRN SQ For Extravasation 08/19/16 07:00 Ceftriaxone Sodium/Sodium Chloride (Rocephin Inj/NS Inj) 100 ml @ 200 mls/hr Q24H IV 08/22/16 11:00 08/27/16 11:54 Diphenhydramine HCl (Benadryl Inj) 50 mg Q6H IV 08/23/16 05:00 08/27/16 11:54 Famotidine (Pepcid Inj) 10 mg Q12HR IV PUSH 08/23/16 21:00 08/27/16 09:08 Heparin Sodium (Porcine) (Heparin Inj) 5,000 units Q8HR SQ 08/24/16 14:00 08/27/16 14:12 Dexamethasone Sodium Phosphate (Decadron Inj) 4 mg Q12HR IV PUSH 08/26/16 09:00 08/29/16 08:59 08/27/16 09:07 Clonidine (Catapres) 0.4 mg Q8HR PO 08/26/16 14:00 08/27/16 14:12 Metoprolol Tartrate (Lopressor) 25 mg Q8HR PO 08/26/16 08:00 08/27/16 14:11 Insulin Detemir (Levemir Inj) 20 units Q12HR SQ 08/26/16 09:00 08/27/16 09:08 Water (Free Water) 300 ml Q6HR G-TUBE 08/27/16 12:00 08/27/16 11:55 (Cinthia Rosas) Medical Decision Making MDM Remarks 56 y/o female with left basal ganglia bleed, most likely hypertensive in etiology, f/u CT Head 08/13 stable ICH Encephalopathy, neuro exam improved EEG 08/15/16 neg for seizures Angioedema, improving (Cinthia Rosas) Plan Plan Remarks cont current care neuro stable therapy and rehab efforts (Cinthia Rosas) Attending Statement The exam, history, and the medical decision-making described in the above note were completed with the assistance of the mid-level provider. I reviewed and agree with the findings presented. I attest that I had a [id number] encounter with the patient on the same day, and personally performed and documented my assessment and findings in the medical record. (Chris Tran MD) Cinthia Rosas Aug 27, 2016 14:29 Chris Tran MD Aug 29, 2016 16:04
--- NOTE | 2016-08-27 16:00 | HHI.PR ---
Subjective Remarks ass: IC BLEED S/P TRACH NO DISTRESS PLAN O2 NEEDED PULM. TOILET Objective Vital Signs Date Time Temp Pulse Resp B/P Pulse Ox O2 Delivery O2 Flow Rate FiO2 08/27/16 14:00 69 08/27/16 12:00 98.4 64 9 154/75 100 08/27/16 12:00 64 08/27/16 10:00 62 08/27/16 08:00 98.6 58 10 150/78 100 08/27/16 08:00 58 08/27/16 07:23 100 T-piece 4.00 28 08/27/16 06:00 65 08/27/16 04:00 98.4 64 17 180/83 100 08/27/16 04:00 64 08/27/16 02:00 62 08/27/16 00:00 56 08/27/16 00:00 98.7 56 18 177/86 100 08/26/16 22:00 58 08/26/16 20:00 64 08/26/16 20:00 98.6 64 19 176/84 100 08/26/16 19:50 100 T-piece 35 08/26/16 18:00 52 08/26/16 16:00 61 08/26/16 16:00 97.9 61 11 163/78 100 I/O 08/26/16 08/26/16 08/26/16 08/27/16 08/27/16 08/27/16 07:00 15:00 23:00 07:00 15:00 23:00 Intake Total 818 ml 1108 ml 615 ml 828 ml 1193 ml Output Total 1400 ml 1400 ml 1200 ml 900 ml 1375 ml Balance -582 ml -292 ml -585 ml -72 ml -182 ml IV Total 0 ml 151 ml 236 ml Tube Feeding 318 ml 357 ml 315 ml 228 ml 357 ml Tube Irrigant 100 ml Other 400 ml 600 ml 300 ml 600 ml 600 ml Output Urine Total 1400 ml 1400 ml 1200 ml 900 ml 1375 ml # Bowel Movements 2 0 0 Result Diagram: 08/27/160 08/27/16439 Bianca Valenzuela MD Aug 27, 2016 16:00
[2016-08-27 21:10] LABS: MEAN CORPUSCULAR HGB CONC 29.9 % (32.0-36.0)
[2016-08-28] VITALS (10 sets, daily range): BP systolic 138–182; BP diastolic 64–94; PULSE 63–86; RESP 16–20; TEMP 98.3–99.1; O2SAT 95–100
[2016-08-28] MEDS: NIFEdipine 10 MG CAP PO SCH ×5 (00:21→23:50)
[2016-08-28] MEDS: FREE WATER G-TUBE SCH ×6 (00:22→23:50)
[2016-08-28] MEDS: diphenhydrAMINE HCL 50 MG/ML VIAL IV SCH ×4 (03:13→22:17)
[2016-08-28] MEDS: hydrALAZINE HCL 20 MG/ML VIAL IV PUSH PRN ×3 (03:13→10:30)
[2016-08-28] MEDS: CHLORHEXIDINE GLUCONATE 2 % 1 PACK (2 CLOTHS) TOP SCH (04:00)
[2016-08-28] MEDS: HEPARIN SODIUM - SQ 10,000 UNITS/ML VIAL SQ SCH ×3 (04:43→21:00)
[2016-08-28] MEDS: hydrALAZINE HCL 100 MG TAB PO SCH ×3 (04:43→21:01)
[2016-08-28] MEDS: METOPROLOL TARTRATE 25 MG TAB PO SCH ×3 (04:43→21:05)
[2016-08-28] MEDS: cloNIDine HCL 0.2 MG TAB PO SCH ×3 (04:43→21:01)
[2016-08-28 05:08] LABS: AUTOMATED NEUTROPHIL # 20.2 TH/MM3 (1.8-7.7); BASOPHIL % 0.2 % (0.0-2.0); EOSINOPHIL # 0.2 TH/MM3 (0-0.4); EOSINOPHIL % 0.8 % (0.0-4.0); HEMATOCRIT 28.8 % (35.0-46.0); LYMPH % 5.1 % (9.0-44.0); LYMPHOCYTE # 1.2 TH/MM3 (1.0-4.8); MEAN CELL VOLUME 87.4 FL (80.0-100.0); MEAN CORPUSCULAR HEMOGLOBIN 26.1 PG (27.0-34.0); MONO % 5.5 % (0.0-8.0); NEUT % 88.4 % (16.0-70.0); PLATELET COUNT 286 TH/MM3 (150-450); RED BLOOD COUNT 3.29 MIL/MM3 (4.00-5.30); WHITE BLOOD COUNT 22.8 TH/MM3 (4.0-11.0)
[2016-08-28 05:11] LABS: HEMO FLAGS AUTO DIFF
[2016-08-28 05:40] LABS: ALKALINE PHOSPHATASE 133 U/L (45-117); ALT (GPT) 78 U/L (10-53); ANION GAP 8 MEQ/L (5-15); AST (GOT) 49 U/L (15-37); BICARBONATE 27.6 MEQ/L (21.0-32.0); BLOOD UREA NITROGEN 87 MG/DL (7-18); CHLORIDE 112 MEQ/L (98-107); GLOMERULAR FILTRATION RATE 16 ML/MIN (>89); MAGNESIUM 3.1 MG/DL (1.5-2.5); POTASSIUM 4.6 MEQ/L (3.5-5.1); SODIUM (NA) 148 MEQ/L (136-145); TOTAL BILIRUBIN ADULT 0.3 MG/DL (0.2-1.0)
[2016-08-28] MEDS: INSULIN ASPART SUPPLEMENTAL SCALE SQ SCH ×4 (06:37→21:46)
[2016-08-28 06:48] LABS: CORRECTED NUCLEATED RBC 1 /100 WBC (0-0); METAMYELOCYTES 1 % (0-1); NEUTROPHIL # MANUAL DIFF 19.8 TH/MM3 (1.8-7.7); POLYS (SEG NEUTROPHILS) 86 % (16-70); WBC DIFF SAMPLE 100
[2016-08-28 06:49] LABS: PLATELET ESTIMATE SMEAR NORMAL (NORMAL); PLATELET MORPHOLOGY NORMAL (NORMAL)
[2016-08-28 06:54] LABS: SCAN/DIFF FINAL DIFF MANUAL
[2016-08-28] MEDS: FAMOTIDINE 20 MG/2 ML VIAL IV PUSH SCH ×2 (07:50→21:00)
[2016-08-28] MEDS: DOCUSATE SODIUM 50 MG/SENNA 8.6 MG TAB PO SCH ×2 (07:50→21:01)
[2016-08-28] MEDS: DEXAMETHASONE SOD PHOS 4 MG/ML VIAL IV PUSH SCH ×2 (07:50→21:00)
[2016-08-28] MEDS: SODIUM CHLORIDE 0.9% FLUSH 10 ML FLUSH SCH ×2 (08:04→21:01)
--- NOTE | 2016-08-28 08:04 | HHI.PR ---
Subjective Remarks Patient unable to talk. She expresses some discomfort and headache. We discussed pain treatment. Objective Vital Signs Date Time Temp Pulse Resp B/P Pulse Ox O2 Delivery O2 Flow Rate FiO2 08/28/16 04:00 99.1 74 20 153/73 100 08/28/16 00:00 98.3 63 18 151/92 100 08/28/16 00:00 63 08/27/16 22:00 60 08/27/16 21:02 100 T-piece 28 08/27/16 20:00 98.2 78 10 171/85 100 08/27/16 20:00 78 08/27/16 18:00 64 08/27/16 16:00 60 08/27/16 16:00 98.3 60 12 133/63 100 08/27/16 14:00 69 08/27/16 12:00 98.4 64 9 154/75 100 08/27/16 12:00 64 08/27/16 10:00 62 08/27/16 08:00 98.6 58 10 150/78 100 08/27/16 08:00 58 I/O 08/27/16 08/27/16 08/27/16 08/28/16 08/28/16 08/28/16 07:00 15:00 23:00 07:00 15:00 23:00 Intake Total 828 ml 1193 ml 548 ml 540 ml Output Total 900 ml 1375 ml 1050 ml 1100 ml Balance -72 ml -182 ml -502 ml -560 ml IV Total 236 ml Tube Feeding 228 ml 357 ml 248 ml 240 ml Other 600 ml 600 ml 300 ml 300 ml Output Urine Total 900 ml 1375 ml 1050 ml 1100 ml # Bowel Movements 1 Result Diagram: 08/28/16 0447 08/28/16 044 Objective Remarks GENERAL: NAD, A&Ox1, cannot talk secondary to tracheostomy HEAD: Normocephalic. Angioedema tongue present NECK: Supple, trachea midline. No lymphadenopathy. Tracheostomy present EYES: No scleral icterus. No injection or drainage. CARDIOVASCULAR: Regular rate and rhythm without murmurs, gallops, or rubs. RESPIRATORY: Breath sounds equal bilaterally. No accessory muscle use. GASTROINTESTINAL: Abdomen soft, non-tender, nondistended. MUSCULOSKELETAL: No cyanosis, or edema. SKIN: Warm and dry. NEURO: Global neurological deficitis. Medications and IVs Administered Medications Medications (Trade) Dose Ordered Sig/Jones Route PRN Reason Start Time Stop Time Status Last Admin Dose Admin Sodium Chloride (NS Flush) 2 ml BID .XX 08/12/16 21:00 08/27/16 20:46 Acetaminophen (Tylenol) 650 mg Q6H PRN PO PAIN 1-10 AND/OR FEVER >101F 08/12/16 18:30 08/26/16 10:25 Chlorhexidine Gluconate (Chlorhexidine 2% Cloth) Taper DAILY@04 TOP 08/13/16 04:00 08/09/17 03:59 08/22/16 00:00 Senna/Docusate Sodium (Adele-Colace) 1 tab BID PO 08/12/16 21:00 08/27/16 20:45 Magnesium Hydroxide (Milk Of Magnesia Liq) 30 ml Q12H PRN PO MILD - MODERATE CONSTIPATION 08/12/16 18:30 08/23/16 09:14 Sennosides (Senokot) 17.2 mg Q12H PRN PO MODERATE - SEVERE CONSTIPATION 08/12/16 18:30 08/23/16 05:10 Bisacodyl (Dulcolax Supp) 10 mg DAILY PRN RECTAL SEVERE CONSITIPATION 08/12/16 18:30 08/23/16 09:14 Lactulose (Lactulose Liq) 30 ml DAILY PRN PO SEVERE CONSITIPATION 08/12/16 18:30 08/23/16 09:14 Hydralazine HCl (Apresoline Inj) 20 mg Q4H PRN IV PUSH SBP>160, DBP>90 08/12/16 20:30 08/28/16 07:02 Labetalol HCl (Trandate Inj) 10 mg Q4H PRN IV PUSH SBP>160, DBP>90 08/12/16 20:30 08/26/16 04:30 Hydralazine HCl (Apresoline) 100 mg Q8HR PO 08/16/16 07:30 08/28/16 04:43 Dextrose (D50w (Vial) Inj) 50 ml UNSCH PRN IV HYPOGLYCEMIA-SEE COMMENTS 08/17/16 09:15 08/23/16 06:38 Nifedipine 10 mg 10 mg Q6HR PO 08/19/16 12:00 08/28/16 04:42 Ceftriaxone Sodium/Sodium Chloride (Rocephin Inj/NS Inj) 100 ml @ 200 mls/hr Q24H IV 08/22/16 11:00 08/27/16 11:54 Diphenhydramine HCl (Benadryl Inj) 50 mg Q6H IV 08/23/16 05:00 08/28/16 03:13 Famotidine (Pepcid Inj) 10 mg Q12HR IV PUSH 08/23/16 21:00 08/27/16 20:45 Heparin Sodium (Porcine) (Heparin Inj) 5,000 units Q8HR SQ 08/24/16 14:00 08/28/16 04:43 Dexamethasone Sodium Phosphate (Decadron Inj) 4 mg Q12HR IV PUSH 08/26/16 09:00 08/29/16 08:59 08/27/16 20:45 Clonidine (Catapres) 0.4 mg Q8HR PO 08/26/16 14:00 08/28/16 04:43 Metoprolol Tartrate (Lopressor) 25 mg Q8HR PO 08/26/16 08:00 08/28/16 04:43 Insulin Detemir (Levemir Inj) 20 units Q12HR SQ 08/26/16 09:00 08/27/16 21:26 Water (Free Water) 300 ml Q6HR G-TUBE 08/27/16 12:00 08/28/16 04:43 A/P Problem List: (1) Left basal ganglia hemorrhage (2) HCAP (healthcare-associated pneumonia) ICD Code: J18.9 (3) Hemorrhagic stroke ICD Code: I61.9 (4) Acute kidney failure ICD Code: N17.9 (5) Angioedema ICD Code: T78.3XXA (6) Acute respiratory failure ICD Code: J96.00 (7) Acute renal injury ICD Code: N17.9 (8) Hypertensive emergency ICD Code: I16.1 (9) Elevated serum creatinine ICD Code: R79.89 (10) Hypernatremia ICD Code: E87.0 (11) Respiratory failure ICD Code: J96.90 (12) 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 Status post lisinopril reaction with angioedema. Also admitted related to hypertensive urgency. Status post basal ganglia hemorrhage Persistent respiratory failure Persistent encephalopathy Headache May be secondary to basal ganglia hemorrhage When necessary pain treatments Acute hemorrhagic basal ganglia stroke Acute encephalopathy Maintain blood pressure control with systolic goal less than 160 mmHg Follow neurological status Neurosurgeon following Physical therapy Occupational therapy Out of bed to chair as tolerated Follow for improvement of encephalopathy. Acute hypoxic respiratory failure Hypercarbic respiratory failure Tracheostomy present Continue oxygenation via tracheostomy Tracheostomy care Pulmonary toilet Wean FiO2 as tolerated When necessary and scheduled nebulized treatments Pulmonology following Angioedema Secondary to lisinopril Avoid Rodger inhibitors Continue Decadron Continue Pepcid Continue Benadryl Follow for improvement Hypertension Recent hypertensive urgency Continue metoprolol Continue hydralazine Continue clonidine Continue nifedipine Avoid lisinopril as patient has allergy to this. Acute on chronic renal failure CKD stage IV Creatinine slowly improving Continue Diuril Monitor I's and O's Maintain Chacon catheter Monitor renal function Hypernatremia Mildly elevated today follow sodium level Volume overload Monitor to establish stable fluid balance Acute protein calorie malnutrition Continue tube feedings Follow albumin Non-anion gap metabolic acidosis Improved Follow bicarbonate level MSSA pneumonia Treatment completed Escherichia coli UTI Rocephin 1 GM Daily Anemia Follow CBC daily Diabetes mellitus type 2 Continue Levemir 20 every 12 hours Sliding scale insulin next line follow blood sugars Patient nothing by mouth DVT prophylaxis SCDs and subcutaneous heparin GI prophylaxis Pepcid Lines: Peripheral IV Chacon catheter Problem Qualifiers (1) Respiratory failure: Qualified Code: J96.00 - Acute respiratory failure, unspecified whether with hypoxia or hypercapnia Tato Gay MD Aug 28, 2016 08:04
[2016-08-28] MEDS: cefTRIAXone INJ 1,000 MG in SODIUM CHLORIDE 0.9% INJ 100 ML IV SCH (09:14)
[2016-08-28] MEDS: HYDROmorphone HCL PF 1 MG/ML VIAL IV PUSH PRN ×3 (09:15→21:02)
[2016-08-28] MEDS: INSULIN DETEMIR 100 UNITS/ML VIAL SQ SCH ×2 (09:16→21:05)
[2016-08-28] MEDS: LABETALOL HCL 100 MG/20 ML VIAL IV PUSH PRN ×2 (10:24→15:58)
[2016-08-28] MEDS ORDERED: LABETALOL HCL 100 MG/20 ML VIAL IV PUSH ONE (12:45)
[2016-08-28] MEDS: cloNIDine HCL 0.3 MG/24 HR PATCH T-DERMAL SCH (13:14)
--- NOTE | 2016-08-28 16:46 | HHI.NPPN ---
Subjective Complaints: Obesity General Problems: Edema Renal Failure: Acute Interval History She is sleeping. Blood pressure stable. Renal function improved. (Miguelina Walsh) Review of Systems General General Remarks unable to obtain (Miguelina Walsh) Ears, Nose, & Throat ENT Remarks tongue swelling (Miguelina Walsh) Objective Data Data 08/27/16 08/28/16 19:00 07:00 Intake Total 1193 ml 1088 ml Output Total 1375 ml 2150 ml Balance -182 ml -1062 ml IV Total 236 ml Tube Feeding 357 ml 488 ml Other 600 ml 600 ml Output Urine Total 1375 ml 2150 ml # Bowel Movements 1 Vital Signs Date Time Temp Pulse Resp B/P Pulse Ox O2 Delivery O2 Flow Rate FiO2 08/28/16 09:03 100 T-piece 5.00 28 08/28/16 08:00 98.5 86 16 156/87 100 08/28/16 04:00 99.1 74 20 153/73 100 08/28/16 00:00 98.3 63 18 151/92 100 08/28/16 00:00 63 08/27/16 22:00 60 08/27/16 21:02 100 T-piece 28 08/27/16 20:00 98.2 78 10 171/85 100 08/27/16 20:00 78 08/27/16 18:00 64 (Miguelina Walsh) -: 08/28/16 0447 08/28/16 0447 Tubes & Lines: Chacon (Miguelina Walsh) Physical Exam General Appearance: No Acute Distress, Comfortable, Anxious, Sleeping, Obese (Miguelina Walsh) Eyes Eye Exam: Pupils Equal (Miguelina Walsh) Throat Throat Exam: Oral Mucosa [place] & Moist Throat Remarks angioedema of lips and tongue present, +trach (Miguelina Walsh) Pulmonary Resp Exam: Breath Sounds Equal, Crackles (Miguelina Walsh) Cardiology CV Exam: Regular, Normal Sinus Rhythm, Good Perfusion (Miguelina Walsh) Gastrointestinal/Abdomen GI Exam: Non-Tender, Bowel Sounds Present GI Remarks obese + PEG (Miguelina Walsh) Musculoskeletal MS Exam: Joints Intact, Normal Tone, Unable to Ambulate (Miguelina Walsh) Integumentary Skin Exam: Warm, Dry (Miguelina Walsh) Extremeties Extremities Exam: Pedal Pulses Palpable, Trace Edema (Miguelina Walsh) Neurologic Neuro Exam: Awake Neuro Remarks right side flaccid (Miguelina Walsh) Assessment/Plan Assessment Summary: CHRIS/Acute Renal Failure, Acute Tubular Necrosis, Fluid/ Volume Overload, Proteinuria, Hypertension Electrolyte Assessment: Hypernatremia Problem List: (1) Elevated serum creatinine Plan: may have underlying CKD, imaging showing signs of chronic renal disease her creatinine is better today excellent urine output, continue negative fluid balance off diuretics, may need to resume tomorrow avoid IVF and nephrotoxic medications on Rocephin for UTI, unknown stop date obtain daily renal panel (2) Hypernatremia Plan: worse today, resume 300 ml Q4h free water with tube feedings off diuretics monitor serum sodium levels (3) Hypertensive emergency Plan: BP is stable continue oral medications avoid NEGRITO due to CHRIS and angioedema (4) Thalamic hemorrhage Plan: due to hypertensive crisis neurosurgery following, non surgical management (5) Respiratory failure Plan: s/p trach with T piece appreciate respiratory therapy assistance (Miguelina Walsh) Plan patient was seen and examined. Agree with above assessment and plan. Increase free water through feeding tube. (Jamal Salazar MD) Problem Qualifiers (1) Respiratory failure: Qualified Code: J96.00 - Acute respiratory failure, unspecified whether with hypoxia or hypercapnia Miguelina Walsh Aug 28, 2016 16:46 Jamal Salazar MD Aug 29, 2016 14:24
--- NOTE | 2016-08-28 18:21 | HHI.NSPN ---
Note Status Status: Progress Note Interval History Interval History Ms. Richey is a 56-year-old female who presents to [facility] ED with altered mental status and right side weakness. On arrival her blood pressure in chart was 235/115. Her CT scan of the head showed acute left basal ganglia hemorrhagic stroke. She was intubated by an ER attending for an airway protection admitted to ICU. She is sedated. Does not open eyes or follow commands. On Cardene drip for blood pressure control. 08/14: f/u CT Head 08/13 showed stable findings. With angioedema. Intubated and sedated. 08/15: sedation off, not opening eyes or following commands. 08/16: no significant changes to neuro checks overnight, slightly ?opened eyes, appears to be intermittently moving more 08/17: remains intubated, no acute events overnight 08/18: minimal eye opening, not following commands. remains on cardene for bp control, and persistent severe angioedema. 08/19: no changes to neuro status 08/20: opens eyes,withdraws x 4. otherwise no significant neurological changes. for tracheostomy 08/21: for trach and PEG today, nursing reports following commands on right side and tracks. 08/22: mental status improving, more awake, following more commands, s/p trach and PEG 08/26: at bedside reports patient is doing very well, more alert, interactive. angioedema of tongue improving. 08/27: no changes to neuro checks, 08/28. She continues to improve Labs, Micro, & Vital Signs Results Date Time Temp Pulse Resp B/P Pulse Ox O2 Delivery O2 Flow Rate FiO2 08/28/16 09:03 100 T-piece 5.00 28 08/28/16 08:00 98.5 86 16 156/87 100 08/28/16 04:00 99.1 74 20 153/73 100 08/28/16 00:00 98.3 63 18 151/92 100 08/28/16 00:00 63 08/27/16 22:00 60 08/27/16 21:02 100 T-piece 28 08/27/16 20:00 98.2 78 10 171/85 100 08/27/16 20:00 78 08/28/16 07:00 Intake Total 2281 ml Output Total 3525 ml Balance -1244 ml Constitutional Vital Signs Date Time Temp Pulse Resp B/P Pulse Ox O2 Delivery O2 Flow Rate FiO2 08/28/16 09:03 100 T-piece 5.00 28 08/28/16 08:00 98.5 86 16 156/87 100 08/28/16 04:00 99.1 74 20 153/73 100 08/28/16 00:00 98.3 63 18 151/92 100 08/28/16 00:00 63 08/27/16 22:00 60 08/27/16 21:02 100 T-piece 28 08/27/16 20:00 98.2 78 10 171/85 100 08/27/16 20:00 78 08/28/16 07:00 Intake Total 2281 ml Output Total 3525 ml Balance -1244 ml Review of Systems/Exam Exam Ms. Richey is awake, alert. Following simple commands. Cranial Nerves: Pupils 2 mm equal, round. angioedema of lip and tongue, which appears improving Neck with tracheostomy on mechanical vent Motor: moving all four extremities, on two point soft restraints Reflexes: plantars silent b/l Cerebellar: cannot assess due to clinical condition Medications Current Medications Current Medications IV Flush (NS Flush) 2 ml UNSCH PRN IV FLUSH FLUSH AFTER USING IV ACCESS; Start 08/12/16 at 17:30; Stop 08/12/16 at 19:50; Status DC Etomidate (Amidate Inj) 20 mg ONCE ONCE IVP ; Start 08/12/16 at 17:45; Stop at 17:46; Status DC Succinylcholine Chloride (Quelicin Inj) 100 mg ONCE ONCE IVP ; Start 08/12/16 at 17:45; Stop 08/12/16 at 17:46; Status DC Sodium Chloride (NS Flush) 2 ml UNSCH PRN IVF FLUSH AFTER USING IV ACCESS; Start 08/12/16 at 17:45; Stop 08/12/16 at 19:50; Status DC Lidocaine HCl (Xylocaine 2% Inj) 100 mg ONCE ONCE IVP ; Start 08/12/16 at 17:45 ; Stop 08/12/16 at 17:46; Status DC Rocuronium Mcdonough 5 mg 5 mg BOLUS ONCE IV ; Start 08/12/16 at 17:45; Stop at 17:46; Status DC Propofol 100 ml @ 0 mls/hr TITRATE IV Last administered on 08/12/16 17:58; Start 08/12/16 at 17:45; Stop 08/12/16 at 19:49; Status DC Nicardipine HCl/ Sodium Chloride (Cardene Inj/NS 250 ml Inj) 260 ml @ 0 mls/hr TITRATE IV Last administered on 08/12/16 20:21; Start 08/12/16 at 17:45; Stop 08/12/16 at 20:36; Status DC Lidocaine HCl (Xylocaine 1% Inj) 30 ml ONCE ONCE INFIL ; Start 08/12/16 at 17: 45; Stop 08/12/16 at 17:46; Status DC Midazolam HCl (Versed Inj) 5 mg STK-MED ONCE .ROUTE ; Start 08/12/16 at 18:13; Stop 08/12/16 at 18:14; Status DC Midazolam HCl 1 mg 1 mg ONCE ONCE IV PUSH Last administered on 08/12/16 18:28 ; Start 08/12/16 at 18:15; Stop 08/12/16 at 18:16; Status DC Midazolam HCl (Versed Inj) 100 ml @ 0 mls/hr CONTINUOUS IV Last administered on 08/14/16 09:45; Start 08/12/16 at 18:15; Stop 08/18/16 at 18:36; Status DC Enalapril Maleate (Vasotec) 20 mg DAILY PO ; Start 08/13/16 at 09:00; Stop 08/13 at 10:57; Status DC Metoprolol Tartrate 50 mg 50 mg BID PO Last administered on 08/18/16 22:01; Start 08/12/16 at 21:00; Stop 08/19/16 at 07:01; Status DC Midazolam HCl 100 ml @ As Directed STK-MED ONCE .ROUTE ; Start 08/12/16 at 18: 20; Stop 08/12/16 at 18:21; Status DC Sodium Chloride (NS 1000 ml Inj) 1,000 ml @ 40 mls/hr Q24H IV Last administered on 08/17/16 06:05; Start 08/12/16 at 19:00; Stop 08/17/16 at 09:10; Status DC Sodium Chloride (NS Flush) 2 ml UNSCH PRN .XX FLUSH AFTER USING IV ACCESS; Start 08/12/16 at 18:30 Sodium Chloride (NS Flush) 2 ml BID .XX Last administered on 08/29/16 08:17; Start 08/12/16 at 21:00 Acetaminophen (Tylenol) 650 mg Q6H PRN PO PAIN 1-10 AND/OR FEVER >101F Last administered on 08/26/16 10:25; Start 08/12/16 at 18:30 Morphine Sulfate (Morphine Inj) 2 mg Q2H PRN IV PAIN SCALE 6 TO 10 Last administered on 08/17/16 11:13; Start 08/12/16 at 18:30; Stop 08/18/16 at 18:37; Status DC Famotidine (Pepcid Inj) 10 mg Q12HR IV PUSH Last administered on 08/22/16 19:46 ; Start 08/12/16 at 21:00; Stop 08/23/16 at 06:40; Status DC Albuterol/ Ipratropium (Duoneb Neb) 1 ampule Q2HR NEB PRN INH WHEEZING; Start 08/12/16 at 18:30 Miscellaneous Information 1 Q361D XX ; Start 08/12/16 at 18:30 Chlorhexidine Gluconate (Chlorhexidine 2% Cloth) Taper DAILY@04 TOP Last administered on 08/29/16 03:12; Start 08/13/16 at 04:00; Stop 08/09/17 at 03:59 Chlorhexidine Gluconate (Chlorhexidine 2% Cloth) 3 pack UNSCH PRN TOP HYGIENIC CARE; Start 08/12/16 at 18:30 Senna/Docusate Sodium (Adele-Colace) 1 tab BID PO Last administered on 08:17; Start 08/12/16 at 21:00 Magnesium Hydroxide (Milk Of Magnesia Liq) 30 ml Q12H PRN PO MILD - MODERATE CONSTIPATION Last administered on 08/23/16 09:14; Start 08/12/16 at 18:30 Sennosides (Senokot) 17.2 mg Q12H PRN PO MODERATE - SEVERE CONSTIPATION Last administered on 08/23/16 05:10; Start 08/12/16 at 18:30 Bisacodyl (Dulcolax Supp) 10 mg DAILY PRN RECTAL SEVERE CONSITIPATION Last administered on 08/23/16 09:14; Start 08/12/16 at 18:30 Lactulose 30 ml 30 ml DAILY PRN PO SEVERE CONSITIPATION Last administered on 09:14; Start 08/12/16 at 18:30 Propofol 100 ml @ 0 mls/hr TITRATE IV Last administered on 08/14/16 09:45; Start 08/12/16 at 18:30; Stop 08/18/16 at 18:37; Status DC Vancomycin HCl 1000 mg/Sodium Chloride 250 ml @ 250 mls/hr ONCE STAT IV Last administered on 08/12/16 19:50; Start 08/12/16 at 18:46; Stop 08/12/16 at 19:45 ; Status DC Piperacillin Sod/ Tazobactam Sod (Zosyn 4.5 Gm Premix) 100 ml @ 200 mls/hr ONCE STAT IV Last administered on 08/12/16 21:08; Start 08/12/16 at 18:46; Stop 08/12/16 at 20:34; Status DC Succinylcholine Chloride (Quelicin Inj) 200 mg STK-MED ONCE .ROUTE ; Start 08/12 at 18:48; Stop 08/12/16 at 18:49; Status DC Rocuronium Mcdonough (Zemuron Inj) 50 mg STK-MED ONCE .ROUTE ; Start 08/12/16 at 18:49; Stop 08/12/16 at 18:50; Status DC Etomidate (Amidate Inj) 20 mg STK-MED ONCE .ROUTE ; Start 08/12/16 at 18:50; Stop 08/12/16 at 18:51; Status DC Labetalol HCl (Trandate Inj) 20 mg ONCE ONCE IV PUSH Last administered on 08/12 19:06; Start 08/12/16 at 19:15; Stop 08/12/16 at 19:16; Status DC Hydralazine HCl (Apresoline Inj) 20 mg STK-MED ONCE .ROUTE ; Start 08/12/16 at 19:32; Stop 08/12/16 at 19:33; Status DC Hydralazine HCl 20 mg 20 mg ONCE ONCE IV PUSH Last administered on 08/12/16 19:51; Start 08/12/16 at 19:45; Stop 08/12/16 at 19:46; Status DC Nicardipine HCl/ Sodium Chloride (Cardene Inj/NS 250 ml Inj) 260 ml @ 0 mls/hr TITRATE IV Last administered on 08/17/16 21:20; Start 08/12/16 at 20:30; Stop 08/17/16 at 22:32; Status DC Hydralazine HCl (Apresoline Inj) 20 mg Q4H PRN IV PUSH SBP>160, DBP>90 Last administered on 08/28/16 10:30; Start 08/12/16 at 20:30 Labetalol HCl (Trandate Inj) 10 mg Q4H PRN IV PUSH SBP>160, DBP>90 Last administered on 08/28/16 15:58; Start 08/12/16 at 20:30 Hydralazine HCl (Apresoline Inj) 20 mg NOW ONCE IV ; Start 08/12/16 at 19:34; Stop 08/12/16 at 20:46; Status DC Dexamethasone Sodium Phosphate (Decadron Inj) 10 mg ONCE ONCE IV PUSH Last administered on 08/13/16 09:35; Start 08/13/16 at 09:15; Stop 08/13/16 at 09:16 ; Status DC Insulin Detemir (Levemir Inj) 10 units Q12HR SQ Last administered on 08/15/16 09:29; Start 08/15/16 at 09:00; Stop 08/16/16 at 07:32; Status DC Dextrose (D50w (Vial) Inj) 50 ml UNSCH PRN IV HYPOGLYCEMIA-SEE COMMENTS; Start 08/15/16 at 07:30; Stop 08/18/16 at 17:40; Status DC Glucagon (Glucagon Inj) 1 mg UNSCH PRN OTHER HYPOGLYCEMIA-SEE COMMENTS; Start 08/15/16 at 07:30; Stop 08/18/16 at 17:40; Status DC Insulin Aspart (NovoLOG SUPPLEMENTAL SCALE) 1 Q6H SQ Last administered on 08:00; Start 08/15/16 at 08:00; Stop 08/17/16 at 09:13; Status DC Insulin Detemir (Levemir Inj) 20 units Q12HR SQ Last administered on 08/17/16 08:25; Start 08/16/16 at 09:00; Stop 08/17/16 at 09:13; Status DC Hydralazine HCl (Apresoline) 100 mg Q8HR PO Last administered on 08/29/16 05: 06; Start 08/16/16 at 07:30 Insulin Detemir (Levemir Inj) 30 units Q12HR SQ Last administered on 08/19/16 21:46; Start 08/17/16 at 21:00; Stop 08/20/16 at 07:48; Status DC Dextrose (D50w (Vial) Inj) 50 ml UNSCH PRN IV HYPOGLYCEMIA-SEE COMMENTS Last administered on 08/23/16 06:38; Start 08/17/16 at 09:15 Glucagon (Glucagon Inj) 1 mg UNSCH PRN OTHER HYPOGLYCEMIA-SEE COMMENTS; Start 08/17/16 at 09:15 Insulin Aspart 1 1 ACHS SLIDING SCALE SQ Last administered on 08/29/16 11:06 ; Start 08/17/16 at 11:00 Sodium Chloride/ Sterile Water (Sodium Chloride 23.4% Inj/Sterile Water For Inj ) 1,009.625 ml @ 42 mls/hr Q24H IV Last administered on 08/18/16 06:57; Start 08/17/16 at 09:15; Stop 08/18/16 at 18:37; Status DC Hydrochlorothiazide (Hydrodiuril) 25 mg DAILY PO Last administered on 08/18/16 09:38; Start 08/17/16 at 09:30; Stop 08/20/16 at 07:41; Status DC Lisinopril (Prinivil) 10 mg Q12HR PO Last administered on 08/18/16 09:39; Start 08/17/16 at 21:00; Stop 08/20/16 at 07:41; Status DC Amlodipine Besylate 5 mg 5 mg DAILY PO Last administered on 08/18/16 09:39; Start 08/17/16 at 09:30; Stop 08/18/16 at 16:57; Status DC Nicardipine HCl 100 mg/Sodium Chloride 500 ml @ 0 mls/hr TITRATE IV Last administered on 08/18/16 00:13; Start 08/17/16 at 22:45; Stop 08/26/16 at 07:03; Status DC Clindamycin Phosphate 600 mg/ Sodium Chloride 104 ml @ 208 mls/hr SUPPORT STAFF IV ; Start 08/18/16 at 06:30; Status Cancel Gentamicin Sulfate/Sodium Chloride (Gentamicin Inj/ NS Inj) 103.75 ml @ 200 mls / hr SUPPORT STAFF IV ; Start 08/18/16 at 06:30; Status Cancel Nifedipine (Procardia) 30 mg Q6HR PO Last administered on 08/19/16 06:49; Start 08/18/16 at 18:00; Stop 08/19/16 at 07:01; Status DC Water (Free Water) 300 ml Q4HR G-TUBE Last administered on 08/27/16 04:00; Start 08/18/16 at 20:00; Stop 08/27/16 at 08:38; Status DC Furosemide (Lasix Inj) 100 mg ONCE ONCE IV PUSH Last administered on 08/18/16 22:00; Start 08/18/16 at 18:45; Stop 08/18/16 at 18:46; Status DC Clonidine 0.3 mg 0.3 mg Q8HR PO Last administered on 08/19/16 06:49; Start 08/18 at 22:00; Stop 08/19/16 at 07:01; Status DC Sodium Bicarbonate/ Dextrose (Sodium Bicarbonate 8.4% Inj/D5W 1000 ml Inj) 1, 150 ml @ 100 mls/hr [id number] IV Last administered on 08/20/16 00:42; Start 08/18 at 20:00; Stop 08/20/16 at 07:47; Status DC Sodium Bicarbonate 650 mg 650 mg Q8H PO Last administered on 08/19/16 22:12; Start 08/18/16 at 18:31; Stop 08/20/16 at 02:24; Status DC Sodium Chloride (NS 1000 ml Inj) 2,000 ml @ 0 mls/hr BOLUS ONCE IV Last administered on 08/19/16 02:23; Start 08/19/16 at 02:15; Stop 08/19/16 at 02:16; Status DC Furosemide (Lasix Inj) 100 mg ONCE ONCE IV PUSH Last administered on 08/19/16 09:04; Start 08/19/16 at 06:30; Stop 08/19/16 at 06:31; Status DC Clonidine (Catapres) 0.2 mg Q8HR PO Last administered on 08/26/16 04:49; Start 08/19/16 at 14:00; Stop 08/26/16 at 07:12; Status DC Nifedipine 10 mg 10 mg Q6HR PO Last administered on 08/29/16 11:04; Start 08/19 at 12:00 Phenylephrine HCl/ Dextrose (Neosynephrine Inj/D5W 500 ml Inj) 500 ml @ 0 mls/ hr TITRATE IV ; Start 08/19/16 at 08:00; Stop 08/22/16 at 10:07; Status DC Terbutaline Sulfate (Brethine Inj) 1 mg UNSCH PRN SQ For Extravasation; Start 08/19/16 at 07:00 Chlorothiazide Sodium (Diuril Inj) 500 mg ONCE ONCE IV Last administered on 15:03; Start 08/19/16 at 11:15; Stop 08/19/16 at 11:20; Status DC Sodium Bicarbonate 650 mg 650 mg Q8HR PO Last administered on 08/20/16 06:21; Start 08/20/16 at 06:00; Stop 08/20/16 at 13:09; Status DC Piperacillin Sod/ Tazobactam Sod 50 ml @ 100 mls/hr Q6H IV Last administered on 08/22/16 08:27; Start 08/20/16 at 09:00; Stop 08/22/16 at 10:07; Status DC Vancomycin HCl/ Sodium Chloride (Vancomycin Inj/ NS 250 ml Inj) 250 ml @ 250 mls/hr ONCE ONCE IV Last administered on 08/20/16 08:36; Start 08/20/16 at 07: 30; Stop 08/20/16 at 08:29; Status DC Dexamethasone Sodium Phosphate (Decadron Inj) 4 mg Q6H IV PUSH Last administered on 08/22/16 02:27; Start 08/20/16 at 08:00; Stop 08/22/16 at 07:59; Status DC Diphenhydramine HCl 25 mg 25 mg Q6H IV PUSH Last administered on 08/21/16 02:40 ; Start 08/20/16 at 08:00; Stop 08/21/16 at 07:59; Status DC Sodium Chloride (1/2 NS 1000 ml Inj) 1,000 ml @ 125 mls/hr Q8H IV Last administered on 08/20/16 08:00; Start 08/20/16 at 08:00; Stop 08/20/16 at 10:37; Status DC Insulin Detemir (Levemir Inj) 25 units Q12HR SQ Last administered on 08/22/16 19:48; Start 08/20/16 at 09:00; Stop 08/23/16 at 06:58; Status DC Chlorothiazide Sodium 500 mg 500 mg BID IV Last administered on 08/22/16 08:28 ; Start 08/20/16 at 13:15; Stop 08/22/16 at 09:43; Status DC Pharmacy Profile Note (Vancomycin Consult Pharmacy) 0 ml @ 0 mls/hr UNSCH OTHER ; Start 08/21/16 at 08:45; Stop 08/22/16 at 10:07; Status DC Miscellaneous Information Hold Anticoagulation after midni... ONCE ONCE OTHER ; Start 08/21/16 at 09:30; Stop 08/21/16 at 09:50; Status DC Vancomycin HCl/ Sodium Chloride (Vancomycin Inj/ NS 250 ml Inj) 262.5 ml @ 250 mls/hr ONCE ONCE IV Last administered on 08/21/16 13:00; Start 08/21/16 at 12: 00; Stop 08/21/16 at 13:02; Status DC Norepinephrine Bitartrate (Levophed Inj) 4 mg STK-MED ONCE .ROUTE Last administered on 08/21/16 15:27; Start 08/21/16 at 14:00; Stop 08/21/16 at 14:01; Status DC Midazolam HCl (Versed Inj) 10 mg ONCE ONCE IV PUSH ; Start 08/21/16 at 15:00; Stop 08/21/16 at 15:01; Status DC Fentanyl Citrate (fentaNYL INJ) 250 mcg ONCE ONCE IV PUSH ; Start 08/21/16 at 15 :00; Stop 08/21/16 at 15:01; Status DC Rocuronium Mcdonough (Zemuron Inj) 100 mg BOLUS ONCE IV ; Start 08/21/16 at 15:00 ; Stop 08/21/16 at 15:01; Status DC Rocuronium Mcdonough (Zemuron Inj) 50 mg STK-MED ONCE .ROUTE Last administered on 08/21/16 14:09; Start 08/21/16 at 14:07; Stop 08/21/16 at 14:08; Status DC Midazolam HCl (Versed Inj) 5 mg STK-MED ONCE .ROUTE Last administered on 15:19; Start 08/21/16 at 14:08; Stop 08/21/16 at 14:09; Status DC Vecuronium Mcdonough (Norcuron 10 Mg Inj) 10 mg STK-MED ONCE .ROUTE ; Start at 14:08; Stop 08/21/16 at 14:09; Status DC Fentanyl Citrate (fentaNYL INJ) 100 mcg STK-MED ONCE .ROUTE Last administered on 08/21/16 15:19; Start 08/21/16 at 14:11; Stop 08/21/16 at 14:12; Status DC Fentanyl Citrate (fentaNYL INJ) 100 mcg STK-MED ONCE .ROUTE Last administered on 08/21/16 15:19; Start 08/21/16 at 14:16; Stop 08/21/16 at 14:17; Status DC Rocuronium Mcdonough (Zemuron Inj) 50 mg STK-MED ONCE .ROUTE Last administered on 08/21/16 15:18; Start 08/21/16 at 14:17; Stop 08/21/16 at 14:18; Status DC Midazolam HCl (Versed Inj) 5 mg STK-MED ONCE .ROUTE Last administered on 15:20; Start 08/21/16 at 14:19; Stop 08/21/16 at 14:20; Status DC Propofol (Diprivan 200 Mg/20 ml Inj) 280 mg STK-MED ONCE IV ; Start 08/21/16 at 17:02; Stop 08/21/16 at 17:03; Status DC Chlorothiazide Sodium (Diuril Inj) 500 mg DAILY IV Last administered on 08:34; Start 08/23/16 at 09:00; Stop 08/26/16 at 07:05; Status DC Heparin Sodium (Porcine) 5000 units 5,000 units Q12HR SQ Last administered on 09:05; Start 08/22/16 at 10:00; Stop 08/24/16 at 13:09; Status DC Ceftriaxone Sodium 1000 mg/ Sodium Chloride 100 ml @ 200 mls/hr Q24H IV Last administered on 08/29/16 10:59; Start 08/22/16 at 11:00 Ceftriaxone Sodium/Sodium Chloride (Rocephin Inj/NS Inj) 100 ml @ 200 mls/hr Q24H IV ; Start 08/22/16 at 10:15; Status UNV Diphenhydramine HCl (Benadryl Inj) 50 mg STK-MED ONCE .ROUTE ; Start 08/22/16 at 20:23; Stop 08/22/16 at 20:24; Status DC Diphenhydramine HCl (Benadryl Inj) 50 mg NOW IV Last administered on 08/22/16 22:27; Start 08/22/16 at 22:30; Stop 08/22/16 at 23:56; Status DC Diphenhydramine HCl (Benadryl Inj) 50 mg Q6H IV Last administered on 08/29/16 10:59; Start 08/23/16 at 05:00 Famotidine (Pepcid Inj) 20 mg Q12HR IV PUSH Last administered on 08/23/16 09: 14; Start 08/23/16 at 09:00; Stop 08/23/16 at 12:02; Status DC Dexamethasone Sodium Phosphate (Decadron Inj) 4 mg Q6HR IV PUSH Last administered on 08/26/16 04:49; Start 08/23/16 at 06:45; Stop 08/26/16 at 07:00 ; Status DC Insulin Detemir (Levemir Inj) 15 units Q12HR SQ Last administered on 08/25/16 20:09; Start 08/23/16 at 09:00; Stop 08/26/16 at 07:15; Status DC Famotidine (Pepcid Inj) 10 mg Q12HR IV PUSH Last administered on 08/29/16 09: 37; Start 08/23/16 at 21:00 Heparin Sodium (Porcine) (Heparin Inj) 5,000 units Q8HR SQ Last administered on 08/29/16 05:06; Start 08/24/16 at 14:00 Dexamethasone Sodium Phosphate (Decadron Inj) 4 mg Q12HR IV PUSH Last administered on 08/28/16 21:00; Start 08/26/16 at 09:00; Stop 08/29/16 at 08:59 ; Status DC Clonidine (Catapres) 0.2 mg Q8HR PO ; Start 08/26/16 at 07:00; Stop 08/26/16 at 07:10; Status DC Clonidine (Catapres) 0.4 mg Q8HR PO Last administered on 08/29/16 05:06; Start 08/26/16 at 14:00 Metoprolol Tartrate (Lopressor) 25 mg Q8HR PO Last administered on 08/29/16 05 :06; Start 08/26/16 at 08:00 Insulin Detemir (Levemir Inj) 20 units Q12HR SQ Last administered on 08/29/16 08:21; Start 08/26/16 at 09:00 Clonidine (Catapres) 0.4 mg STAT ONCE PEG Last administered on 08/26/16 10:34 ; Start 08/26/16 at 10:30; Stop 08/26/16 at 10:31; Status DC Water (Free Water) 300 ml Q6HR G-TUBE Last administered on 08/28/16 11:44; Start 08/27/16 at 12:00; Stop 08/28/16 at 15:22; Status DC Hydromorphone HCl (Dilaudid Pf Inj) 0.5 mg Q4H PRN IV PUSH Pain or Headache Last administered on 08/29/16 02:57; Start 08/28/16 at 08:15 Clonidine (Catapres-Tts 0.3 Mg Patch.7d) 1 patch Q7D T-DERMAL Last administered on 08/28/16 13:14; Start 08/28/16 at 13:00 Labetalol HCl (Trandate Inj) 5 mg ONCE ONCE IV PUSH Last administered on 12:45; Start 08/28/16 at 12:45; Stop 08/28/16 at 12:46; Status DC Miscellaneous Information 1 Q7D T-DERMAL ; Start 09/04/16 at 13:00 Water (Free Water) 300 ml Q4H G-TUBE Last administered on 08/29/16 11:06; Start 08/28/16 at 16:00 Medical Decision Making MDM Remarks 56 y/o female with left basal ganglia bleed, most likely hypertensive in etiology Encephalopathy, neuro exam improved Angioedema, improving Plan Plan Remarks continue supportive care neurologically stable Daily PT therapy and rehab efforts BP control MSSA pneumonia. Treatment completed Escherichia coli UTI. Rocephin 1 GM Daily Anemia. Follow CBC daily Diabetes mellitus type 2. Continue Levemir 20 every 12 hours Sliding scale insulin Protonix for stress ulcer prophylaxis JOSH hose and sequential compression devices. Chris Blue MD Aug 28, 2016 18:21
--- NOTE | 2016-08-28 18:52 | HHI.PR ---
Subjective Remarks ass: IC BLEED S/P TRACH NO DISTRESS Objective Vital Signs Date Time Temp Pulse Resp B/P Pulse Ox O2 Delivery O2 Flow Rate FiO2 08/28/16 09:03 100 T-piece 5.00 28 08/28/16 08:00 98.5 86 16 156/87 100 08/28/16 04:00 99.1 74 20 153/73 100 08/28/16 00:00 98.3 63 18 151/92 100 08/28/16 00:00 63 08/27/16 22:00 60 08/27/16 21:02 100 T-piece 28 08/27/16 20:00 98.2 78 10 171/85 100 08/27/16 20:00 78 I/O 08/27/16 08/27/16 08/27/16 08/28/16 08/28/16 08/28/16 07:00 15:00 23:00 07:00 15:00 23:00 Intake Total 828 ml 1193 ml 548 ml 540 ml 718 ml 300 ml Output Total 900 ml 1375 ml 1050 ml 1100 ml 1700 ml Balance -72 ml -182 ml -502 ml -560 ml -982 ml 300 ml IV Total 236 ml 100 ml Tube Feeding 228 ml 357 ml 248 ml 240 ml 318 ml Other 600 ml 600 ml 300 ml 300 ml 300 ml 300 ml Output Urine Total 900 ml 1375 ml 1050 ml 1100 ml 1700 ml # Bowel Movements 1 0 Result Diagram: 08/28/1644608/28/16446 Objective Remarks GENERAL: SKIN: Warm and dry. HEAD: Atraumatic. Normocephalic. tongue protruding EYES: Pupils equal and round. No scleral icterus. No injection or drainage. ENT: No nasal bleeding or discharge. Mucous membranes pink and moist. NECK: Trachea midline. trach in place . CARDIOVASCULAR: Regular rate and rhythm. RESPIRATORY: No accessory muscle use. Clear to auscultation. Breath sounds equal bilaterally. GASTROINTESTINAL: Abdomen soft, non-tender, nondistended. Hepatic and splenic margins not palpable. MUSCULOSKELETAL: Extremities without clubbing, cyanosis, or edema. No obvious deformities. NEUROLOGICAL: Awake and alert. No obvious cranial nerve deficits. Motor grossly within normal limits. Five out of 5 muscle strength in the arms and legs. Normal speech. PSYCHIATRIC: Appropriate mood and affect; insight and judgment normal. Assessment and Plan Assessment and Plan ass respiratory failure S/P IC bleed S/P Tracheostomy plan: O2 as needed pulmonary toilet Bianca Valenzuela MD Aug 28, 2016 18:52
[2016-08-29] VITALS (18 sets, daily range): BP systolic 126–164; BP diastolic 60–107; PULSE 65–86; RESP 13–21; TEMP 98.9–99.7; O2SAT 97–100
[2016-08-29] MEDS: HYDROmorphone HCL PF 1 MG/ML VIAL IV PUSH PRN (02:57)
[2016-08-29] MEDS: FREE WATER G-TUBE SCH ×5 (03:07→20:00)
[2016-08-29] MEDS: CHLORHEXIDINE GLUCONATE 2 % 1 PACK (2 CLOTHS) TOP SCH (03:12)
[2016-08-29] MEDS: NIFEdipine 10 MG CAP PO SCH ×3 (05:06→17:30)
[2016-08-29] MEDS: diphenhydrAMINE HCL 50 MG/ML VIAL IV SCH ×4 (05:06→23:08)
[2016-08-29] MEDS: cloNIDine HCL 0.2 MG TAB PO SCH ×3 (05:06→21:08)
[2016-08-29] MEDS: HEPARIN SODIUM - SQ 10,000 UNITS/ML VIAL SQ SCH ×3 (05:06→21:08)
[2016-08-29] MEDS: METOPROLOL TARTRATE 25 MG TAB PO SCH ×3 (05:06→21:08)
[2016-08-29] MEDS: hydrALAZINE HCL 100 MG TAB PO SCH ×3 (05:06→21:08)
[2016-08-29] MEDS: INSULIN ASPART SUPPLEMENTAL SCALE SQ SCH ×4 (06:26→21:11)
[2016-08-29] MEDS: SODIUM CHLORIDE 0.9% FLUSH 10 ML FLUSH SCH ×2 (08:17→21:09)
[2016-08-29] MEDS: DOCUSATE SODIUM 50 MG/SENNA 8.6 MG TAB PO SCH ×2 (08:17→21:08)
[2016-08-29] MEDS: INSULIN DETEMIR 100 UNITS/ML VIAL SQ SCH ×2 (08:21→21:10)
--- NOTE | 2016-08-29 08:43 | HHI.PR ---
Subjective Remarks ass: IC BLEED S/P TRACH NO DISTRESS Objective Vital Signs Date Time Temp Pulse Resp B/P Pulse Ox O2 Delivery O2 Flow Rate FiO2 08/29/16 06:00 79 08/29/16 06:00 79 16 126/63 100 08/29/16 05:00 70 16 144/64 100 08/29/16 05:00 70 08/29/16 04:00 82 08/29/16 04:00 99.4 82 16 158/81 100 08/29/16 03:27 16 08/29/16 03:00 65 16 147/81 100 08/29/16 03:00 65 08/29/16 02:00 74 16 147/79 100 08/29/16 02:00 74 08/29/16 01:00 74 08/29/16 01:00 74 16 149/84 100 08/29/16 00:00 67 08/29/16 00:00 99.7 67 16 164/84 97 08/28/16 23:00 68 08/28/16 23:00 68 16 168/82 95 08/28/16 22:00 81 08/28/16 22:00 81 16 160/90 100 08/28/16 21:24 100 T-piece 28 08/28/16 21:00 85 16 181/94 100 08/28/16 21:00 85 08/28/16 20:00 83 08/28/16 20:00 83 16 182/93 100 08/28/16 19:00 99.1 71 16 138/64 100 08/28/16 19:00 76 08/28/16 09:03 100 T-piece 5.00 28 I/O 08/28/16 08/28/16 08/28/16 08/29/16 08/29/16 08/29/16 07:00 15:00 23:00 07:00 15:00 23:00 Intake Total 540 ml 718 ml 300 ml 1779 ml Output Total 1100 ml 1700 ml 0 ml 1850 ml Balance -560 ml -982 ml 300 ml -71 ml Intake Oral 0 ml IV Total 100 ml 0 ml Tube Feeding 240 ml 318 ml 579 ml Other 300 ml 300 ml 300 ml 1200 ml Output Urine Total 1100 ml 1700 ml 1850 ml Emesis 0 ml Tube Feeding Residual Discard 0 ml 0 ml # Bowel Movements 1 0 0 Result Diagram: 08/28/1644608/28/16446 Objective Remarks GENERAL: SKIN: Warm and dry. HEAD: Atraumatic. Normocephalic. tongue protruding EYES: Pupils equal and round. No scleral icterus. No injection or drainage. ENT: No nasal bleeding or discharge. Mucous membranes pink and moist. NECK: Trachea midline. trach in place . CARDIOVASCULAR: Regular rate and rhythm. RESPIRATORY: No accessory muscle use. Clear to auscultation. Breath sounds equal bilaterally. GASTROINTESTINAL: Abdomen soft, non-tender, nondistended. Hepatic and splenic margins not palpable. MUSCULOSKELETAL: Extremities without clubbing, cyanosis, or edema. No obvious deformities. NEUROLOGICAL: Awake and alert. No obvious cranial nerve deficits. Motor grossly within normal limits. Five out of 5 muscle strength in the arms and legs. Normal speech. PSYCHIATRIC: Appropriate mood and affect; insight and judgment normal. Assessment and Plan Assessment and Plan ass respiratory failure S/P IC bleed S/P Tracheostomy plan: O2 as needed pulmonary toilet Biacna Valenzuela MD Aug 29, 2016 08:43
[2016-08-29] MEDS: FAMOTIDINE 20 MG/2 ML VIAL IV PUSH SCH ×2 (09:37→21:08)
[2016-08-29] MEDS: cefTRIAXone INJ 1,000 MG in SODIUM CHLORIDE 0.9% INJ 100 ML IV SCH (10:59)
--- NOTE | 2016-08-29 13:27 | HHI.NPPN ---
Subjective Complaints: Obesity General Problems: Edema Renal Failure: Acute Interval History Daughter at bedside. Today's renal panel in process. She is redeveloping extremity edema. (Miguelina Walsh) Review of Systems General General Remarks unable to obtain (Miguelina Walsh) Ears, Nose, & Throat ENT Remarks tongue swelling (Miguelina Walsh) Objective Data Data 08/28/16 08/29/16 19:00 07:00 Intake Total 1018 ml 1779 ml Output Total 1700 ml 1850 ml Balance -682 ml -71 ml Intake Oral 0 ml IV Total 100 ml 0 ml Tube Feeding 318 ml 579 ml Other 600 ml 1200 ml Output Urine Total 1700 ml 1850 ml Emesis 0 ml Tube Feeding Residual Discard 0 ml # Bowel Movements 0 0 Vital Signs Date Time Temp Pulse Resp B/P Pulse Ox O2 Delivery O2 Flow Rate FiO2 08/29/16 12:00 86 08/29/16 10:00 74 08/29/16 08:41 100 T-piece 6.00 08/29/16 08:00 67 08/29/16 06:00 79 08/29/16 06:00 79 16 126/63 100 08/29/16 05:00 70 16 144/64 100 08/29/16 05:00 70 08/29/16 04:00 82 08/29/16 04:00 99.4 82 16 158/81 100 08/29/16 03:27 16 08/29/16 03:00 65 16 147/81 100 08/29/16 03:00 65 08/29/16 02:00 74 16 147/79 100 08/29/16 02:00 74 08/29/16 01:00 74 08/29/16 01:00 74 16 149/84 100 08/29/16 00:00 67 08/29/16 00:00 99.7 67 16 164/84 97 08/28/16 23:00 68 08/28/16 23:00 68 16 168/82 95 08/28/16 22:00 81 08/28/16 22:00 81 16 160/90 100 08/28/16 21:24 100 T-piece 28 08/28/16 21:00 85 16 181/94 100 08/28/16 21:00 85 08/28/16 20:00 83 08/28/16 20:00 83 16 182/93 100 08/28/16 19:00 99.1 71 16 138/64 100 08/28/16 19:00 76 (Miguelina Walsh) -: 08/28/16 0447 08/28/16 0447 Tubes & Lines: [place] (Miguelina Walsh) Physical Exam General Appearance: No Acute Distress, Comfortable, Anxious, Sleeping, Obese (Miguelina Walsh) Eyes Eye Exam: Pupils Equal (Miguelina Walsh) Throat Throat Exam: Oral Mucosa [place] & Moist Throat Remarks angioedema of tongue present, +trach (Miguelina Walsh) Pulmonary Resp Exam: Breath Sounds Equal, Crackles (Miguelina Walsh) Cardiology CV Exam: Regular, Normal Sinus Rhythm, Good Perfusion (Miguelina Walsh) Gastrointestinal/Abdomen GI Exam: Non-Tender, Bowel Sounds Present GI Remarks obese + PEG (Miguelina Walsh) Musculoskeletal MS Exam: Joints Intact, Normal Tone, Unable to Ambulate (Miguelina Walsh) Integumentary Skin Exam: Warm, Dry (Miguelina Walsh) Extremeties Extremities Exam: Pedal Pulses Palpable, Moderate Edema, Pitting Edema ( Miguelina Walsh) Neurologic Neuro Exam: Awake Neuro Remarks right side flaccid (Miguelina Walsh) Assessment/Plan Discussed Condition With: Daughter Assessment Summary: CHRIS/Acute Renal Failure, Acute Tubular Necrosis, Fluid/ Volume Overload, Proteinuria, Hypertension Electrolyte Assessment: Hypernatremia Problem List: (1) Elevated serum creatinine Plan: It is suspected that she has underlying CKD as imaging suggested the same and her creatinine was abnormal on arrival no baseline labs for comparison her creatinine has been improving excellent urine output, continue negative fluid balance off diuretics she developed some edema, give a dose of Diuril and monitor avoid IVF and nephrotoxic medications on Rocephin for UTI, unknown stop date obtain daily renal panel she may need IV access, please avoid PICC line if possible (2) Hypernatremia Plan: it had been worsening, repeat labs in process continue 300 ml Q4h free water with tube feedings, give a dose of Diuril monitor serum sodium levels (3) Hypertensive emergency Plan: BP is stable continue oral medications avoid NEGRITO due to CHRIS and angioedema (4) Thalamic hemorrhage Plan: due to hypertensive crisis neurosurgery following, non surgical management (5) Respiratory failure Plan: s/p trach with T piece appreciate respiratory therapy assistance (Miguelina Walsh) Problem List: (1) Elevated serum creatinine Plan: It is suspected that she has underlying CKD as imaging suggested the same and her creatinine was abnormal on arrival no baseline labs for comparison her creatinine has been improving excellent urine output, continue negative fluid balance off diuretics she developed some edema, give a dose of Diuril and monitor avoid IVF and nephrotoxic medications on Rocephin for UTI, unknown stop date obtain daily renal panel she may need IV access, please avoid PICC line if possible (2) Hypernatremia Plan: it had been worsening, repeat labs in process continue 300 ml Q4h free water with tube feedings, give a dose of Diuril monitor serum sodium levels (3) Hypertensive emergency Plan: BP is stable continue oral medications avoid NEGRITO due to CHRIS and angioedema (4) Thalamic hemorrhage Plan: due to hypertensive crisis neurosurgery following, non surgical management (5) Respiratory failure Plan: s/p trach with T piece appreciate respiratory therapy assistance Plan patient was seen and examined. Her GFR is probably at baseline. Monitor urine output. May be nearing the need for dialysis. (Jamal Salazar MD) Problem Qualifiers (1) Respiratory failure: Qualified Code: J96.00 - Acute respiratory failure, unspecified whether with hypoxia or hypercapnia Miguelina Walsh Aug 29, 2016 13:27 Jamal Salazar MD Aug 29, 2016 14:53
[2016-08-29 13:37] LABS: POTASSIUM 5.2 MEQ/L (3.5-5.1)
[2016-08-29] MEDS ORDERED: CHLOROTHIAZIDE SOD 500 MG VIAL IV ONE (14:00)
--- NOTE | 2016-08-29 14:39 | HHI.PR ---
Subjective Remarks Slight decrease in tone compared to yesterday. Patient unable to verbalize. No discomfort expressed her witnessed. Objective Vital Signs Date Time Temp Pulse Resp B/P Pulse Ox O2 Delivery O2 Flow Rate FiO2 08/29/16 12:00 99.2 86 21 133/60 100 08/29/16 12:00 86 08/29/16 10:00 74 08/29/16 08:41 100 T-piece 6.00 28 08/29/16 08:00 99.1 68 13 138/63 100 08/29/16 08:00 67 08/29/16 06:00 79 08/29/16 06:00 79 16 126/63 100 08/29/16 05:00 70 16 144/64 100 08/29/16 05:00 70 08/29/16 04:00 82 08/29/16 04:00 99.4 82 16 158/81 100 08/29/16 03:27 16 08/29/16 03:00 65 16 147/81 100 08/29/16 03:00 65 08/29/16 02:00 74 16 147/79 100 08/29/16 02:00 74 08/29/16 01:00 74 08/29/16 01:00 74 16 149/84 100 08/29/16 00:00 67 08/29/16 00:00 99.7 67 16 164/84 97 08/28/16 23:00 68 08/28/16 23:00 68 16 168/82 95 08/28/16 22:00 81 08/28/16 22:00 81 16 160/90 100 08/28/16 21:24 100 T-piece 28 08/28/16 21:00 85 16 181/94 100 08/28/16 21:00 85 08/28/16 20:00 83 08/28/16 20:00 83 16 182/93 100 08/28/16 19:00 99.1 71 16 138/64 100 08/28/16 19:00 76 I/O 08/28/16 08/28/16 08/28/16 08/29/16 08/29/16 08/29/16 07:00 15:00 23:00 07:00 15:00 23:00 Intake Total 540 ml 718 ml 300 ml 1779 ml Output Total 1100 ml 1700 ml 0 ml 1850 ml Balance -560 ml -982 ml 300 ml -71 ml Intake Oral 0 ml IV Total 100 ml 0 ml Tube Feeding 240 ml 318 ml 579 ml Other 300 ml 300 ml 300 ml 1200 ml Output Urine Total 1100 ml 1700 ml 1850 ml Emesis 0 ml Tube Feeding Residual Discard 0 ml 0 ml # Bowel Movements 1 0 0 Result Diagram: 08/28/16 0447 08/29/16 1242 Objective Remarks GENERAL: NAD, A&Ox1, cannot talk secondary to tracheostomy HEAD: Normocephalic. Angioedema tongue present NECK: Supple, trachea midline. No lymphadenopathy. Tracheostomy present EYES: No scleral icterus. No injection or drainage. CARDIOVASCULAR: Regular rate and rhythm without murmurs, gallops, or rubs. RESPIRATORY: Breath sounds equal bilaterally. No accessory muscle use. GASTROINTESTINAL: Abdomen soft, non-tender, nondistended. MUSCULOSKELETAL: No cyanosis, or edema. SKIN: Warm and dry. NEURO: Global neurological deficitis. A/P Problem List: (1) Left basal ganglia hemorrhage (2) HCAP (healthcare-associated pneumonia) ICD Code: J18.9 (3) Hemorrhagic stroke ICD Code: I61.9 (4) Acute kidney failure ICD Code: N17.9 (5) Angioedema ICD Code: T78.3XXA (6) Acute respiratory failure ICD Code: J96.00 (7) Acute renal injury ICD Code: N17.9 (8) Hypertensive emergency ICD Code: I16.1 (9) Elevated serum creatinine ICD Code: R79.89 (10) Hypernatremia ICD Code: E87.0 (11) Respiratory failure ICD Code: J96.90 (12) 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 Status post lisinopril reaction with angioedema. Also admitted related to hypertensive urgency. Angioedema slightly improved. Follow further in ICU. Leukocytosis is persistent. Urinalysis is ordered. Status post basal ganglia hemorrhage Persistent respiratory failure Persistent encephalopathy Headache May be secondary to basal ganglia hemorrhage When necessary pain treatments Acute hemorrhagic basal ganglia stroke Acute encephalopathy Maintain blood pressure control with systolic goal less than 160 mmHg Follow neurological status Neurosurgeon following Physical therapy Occupational therapy Out of bed to chair as tolerated Follow for improvement of encephalopathy. Acute hypoxic respiratory failure Hypercarbic respiratory failure Tracheostomy present Continue oxygenation via tracheostomy Tracheostomy care Pulmonary toilet Wean FiO2 as tolerated When necessary and scheduled nebulized treatments Pulmonology following Angioedema Secondary to lisinopril Avoid Rodger inhibitors Continue Decadron Continue Pepcid Continue Benadryl Follow for improvement Hypertension Recent hypertensive urgency Continue metoprolol Continue hydralazine Continue clonidine Continue nifedipine Avoid lisinopril as patient has allergy to this. Acute on chronic renal failure CKD stage IV Creatinine slowly improving Continue Diuril Monitor I's and O's Maintain [place] catheter Monitor renal function Hypernatremia Mildly elevated today follow sodium level Volume overload Monitor to establish stable fluid balance Acute protein calorie malnutrition Continue tube feedings Follow albumin Non-anion gap metabolic acidosis Improved Follow bicarbonate level MSSA pneumonia Treatment completed Escherichia coli UTI Rocephin 1 GM Daily Anemia Follow CBC daily Diabetes mellitus type 2 Continue Levemir 20 every 12 hours Sliding scale insulin next line follow blood sugars Patient nothing by mouth DVT prophylaxis SCDs and subcutaneous heparin GI prophylaxis Pepcid Lines: Peripheral IV [place] catheter Problem Qualifiers (1) Respiratory failure: Qualified Code: J96.00 - Acute respiratory failure, unspecified whether with hypoxia or hypercapnia Tato Gay MD Aug 29, 2016 14:38
--- NOTE | 2016-08-29 16:06 | HHI.NSPN ---
Note Status Status: Progress Note Interval History Interval History Ms. Richey is a 56-year-old female who presents to [facility] ED with altered mental status and right side weakness. On arrival her blood pressure in chart was 235/115. Her CT scan of the head showed acute left basal ganglia hemorrhagic stroke. She was intubated by an ER attending for an airway protection admitted to ICU. She is sedated. Does not open eyes or follow commands. On Cardene drip for blood pressure control. 08/14: f/u CT Head 08/13 showed stable findings. With angioedema. Intubated and sedated. 08/15: sedation off, not opening eyes or following commands. 08/16: no significant changes to neuro checks overnight, slightly ?opened eyes, appears to be intermittently moving more 08/17: remains intubated, no acute events overnight 08/18: minimal eye opening, not following commands. remains on cardene for bp control, and persistent severe angioedema. 08/19: no changes to neuro status 08/20: opens eyes,withdraws x 4. otherwise no significant neurological changes. for tracheostomy 08/21: for trach and PEG today, nursing reports following commands on right side and tracks. 08/22: mental status improving, more awake, following more commands, s/p trach and PEG 08/26: at bedside reports patient is doing very well, more alert, interactive. angioedema of tongue improving. 08/27: no changes to neuro checks, 08/28. She continues to improve 08/29. remains neurologically stable Labs, Micro, & Vital Signs Results Date Time Temp Pulse Resp B/P Pulse Ox O2 Delivery O2 Flow Rate FiO2 08/29/16 12:00 99.2 86 21 133/60 100 08/29/16 12:00 86 08/29/16 10:00 74 08/29/16 08:41 100 T-piece 6.00 28 08/29/16 08:00 99.1 68 13 138/63 100 08/29/16 08:00 67 08/29/16 06:00 79 08/29/16 06:00 79 16 126/63 100 08/29/16 05:00 70 16 144/64 100 08/29/16 05:00 70 08/29/16 04:00 82 08/29/16 04:00 99.4 82 16 158/81 100 08/29/16 03:27 16 08/29/16 03:00 65 16 147/81 100 08/29/16 03:00 65 08/29/16 02:00 74 16 147/79 100 08/29/16 02:00 74 08/29/16 01:00 74 08/29/16 01:00 74 16 149/84 100 08/29/16 00:00 67 08/29/16 00:00 99.7 67 16 164/84 97 08/28/16 23:00 68 08/28/16 23:00 68 16 168/82 95 08/28/16 22:00 81 08/28/16 22:00 81 16 160/90 100 08/28/16 21:24 100 T-piece 28 08/28/16 21:00 85 16 181/94 100 08/28/16 21:00 85 08/28/16 20:00 83 08/28/16 20:00 83 16 182/93 100 08/28/16 19:00 99.1 71 16 138/64 100 08/28/16 19:00 76 08/29/16 07:00 Intake Total 2797 ml Output Total 3550.0 ml Balance -753.0 ml Constitutional Vital Signs Date Time Temp Pulse Resp B/P Pulse Ox O2 Delivery O2 Flow Rate FiO2 08/29/16 12:00 99.2 86 21 133/60 100 08/29/16 12:00 86 08/29/16 10:00 74 08/29/16 08:41 100 T-piece 6.00 28 08/29/16 08:00 99.1 68 13 138/63 100 08/29/16 08:00 67 08/29/16 06:00 79 08/29/16 06:00 79 16 126/63 100 08/29/16 05:00 70 16 144/64 100 08/29/16 05:00 70 08/29/16 04:00 82 08/29/16 04:00 99.4 82 16 158/81 100 08/29/16 03:27 16 08/29/16 03:00 65 16 147/81 100 08/29/16 03:00 65 08/29/16 02:00 74 16 147/79 100 08/29/16 02:00 74 08/29/16 01:00 74 08/29/16 01:00 74 16 149/84 100 08/29/16 00:00 67 08/29/16 00:00 99.7 67 16 164/84 97 08/28/16 23:00 68 08/28/16 23:00 68 16 168/82 95 08/28/16 22:00 81 08/28/16 22:00 81 16 160/90 100 08/28/16 21:24 100 T-piece 28 08/28/16 21:00 85 16 181/94 100 08/28/16 21:00 85 08/28/16 20:00 83 08/28/16 20:00 83 16 182/93 100 08/28/16 19:00 99.1 71 16 138/64 100 08/28/16 19:00 76 08/29/16 07:00 Intake Total 2797 ml Output Total 3550.0 ml Balance -753.0 ml Review of Systems/Exam Exam Ms. Richey is awake, alert. Following simple commands. Cranial Nerves: Pupils 2 mm equal, round. angioedema of lip and tongue, which appears improving Neck with tracheostomy on mechanical vent Motor: moving all four extremities, on two point soft restraints Reflexes: plantars silent b/l Cerebellar: cannot assess due to clinical condition Medical Decision Making MDM Remarks 56 y/o female with left basal ganglia bleed, most likely hypertensive in etiology Encephalopathy, neuro exam improved Angioedema, improving Plan Plan Remarks continue supportive care neurologically stable Daily PT therapy and rehab efforts BP control MSSA pneumonia. Treatment completed Escherichia coli UTI. Rocephin 1 GM Daily Anemia. Follow CBC daily Diabetes mellitus type 2. Continue Levemir 20 every 12 hours Sliding scale insulin Protonix for stress ulcer prophylaxis JOSH hose and sequential compression devices. Ananox Attending Statement continue supportive care neurologically stable Daily PT therapy and rehab efforts BP control MSSA pneumonia. Treatment completed Escherichia coli UTI. Rocephin 1 GM Daily Anemia. Follow CBC daily Diabetes mellitus type 2. Continue Levemir 20 every 12 hours Sliding scale insulin Protonix for stress ulcer prophylaxis JOSH hose and sequential compression devices. LoveChris Suggs MD Aug 29, 2016 16:06
[2016-08-29 21:09] LABS: MEAN CORPUSCULAR HGB CONC 29.8 % (32.0-36.0)
[2016-08-30] VITALS (11 sets, daily range): BP systolic 118–159; BP diastolic 60–81; PULSE 73–80; RESP 14–21; TEMP 98.6–99; O2SAT 100
[2016-08-30] MEDS: CHLORHEXIDINE GLUCONATE 2 % 1 PACK (2 CLOTHS) TOP SCH (03:25)
[2016-08-30] MEDS: FREE WATER G-TUBE SCH ×6 (03:25→20:00)
[2016-08-30] MEDS: hydrALAZINE HCL 100 MG TAB PO SCH ×3 (05:11→21:00)
[2016-08-30] MEDS: METOPROLOL TARTRATE 25 MG TAB PO SCH ×3 (05:11→21:00)
[2016-08-30] MEDS: NIFEdipine 10 MG CAP PO SCH ×4 (05:11→17:58)
[2016-08-30] MEDS: cloNIDine HCL 0.2 MG TAB PO SCH ×3 (05:12→21:01)
[2016-08-30] MEDS: diphenhydrAMINE HCL 50 MG/ML VIAL IV SCH ×4 (05:12→22:22)
[2016-08-30] MEDS: HEPARIN SODIUM - SQ 10,000 UNITS/ML VIAL SQ SCH ×3 (05:12→21:01)
[2016-08-30] MEDS: HYDROmorphone HCL PF 1 MG/ML VIAL IV PUSH PRN (05:26)
[2016-08-30] MEDS: INSULIN ASPART SUPPLEMENTAL SCALE SQ SCH ×4 (05:44→21:00)
[2016-08-30 06:12] LABS: BACTERIA, URINE RARE /hpf; BLOOD, URINE TRACE (NEG); GLUCOSE,URINE NEG (NEG); KETONE, URINE NEG (NEG); MUCUS URINE FEW /lpf (OCC); NITRITE,URINE NEG (NEG); SQUAMOUS EPITHELIAL CELL URINE <1 /hpf (0-5); URINE COLOR LIGHT-YELLOW (YELLW/STRAW)
[2016-08-30 06:13] LABS: COMMENT (UR) CATH-CULTURE IND; CULTURE IF INDICATED CATH CULTURE IND
--- NOTE | 2016-08-30 09:49 | HHI.NPPN ---
Subjective General Problems: Edema Renal Failure: Acute Interval History non oliguric. Creatinine is slightly higher. Serum potassium is noted to slightly high. Review of Systems General General Remarks unable to obtain Ears, Nose, & Throat ENT Remarks tongue swelling Objective Data Data 08/29/16 08/30/16 19:00 07:00 Intake Total 964 ml 1894 ml Output Total 1000 ml 2350 ml Balance -36 ml -456 ml Intake Oral 0 ml IV Total 100 ml 154 ml Tube Feeding 264 ml 540 ml Other 600 ml 1200 ml Output Urine Total 1000 ml 2350 ml # Bowel Movements 0 0 Vital Signs Date Time Temp Pulse Resp B/P Pulse Ox O2 Delivery O2 Flow Rate FiO2 08/30/16 08:00 98.8 74 16 118/60 100 08/30/16 06:00 74 08/30/16 04:00 78 08/30/16 04:00 98.6 80 15 147/78 100 08/30/16 02:00 77 08/30/16 00:00 98.9 76 21 159/81 100 08/30/16 00:00 74 08/29/16 22:00 75 08/29/16 21:00 147/73 08/29/16 20:31 100 T-piece 28 08/29/16 20:30 164/80 08/29/16 20:00 80 08/29/16 20:00 99.2 86 20 156/107 100 08/29/16 17:00 82 13 164/84 100 08/29/16 16:00 98.9 84 14 100 08/29/16 12:00 99.2 86 21 133/60 100 08/29/16 12:00 86 08/29/16 10:00 74 -: 08/28/16 0447 08/29/16 1242 Microbiology 08/30/16 Urine Culture, Received Pending Tubes & Lines: [place] Physical Exam General Appearance: No Acute Distress, Comfortable, Anxious, Sleeping, Obese Eyes Eye Exam: Pupils Equal Throat Throat Exam: Oral Mucosa [place] & Moist Pulmonary Resp Exam: Breath Sounds Equal, Crackles Cardiology CV Exam: Regular, Normal Sinus Rhythm, Good Perfusion Gastrointestinal/Abdomen GI Exam: Non-Tender, Bowel Sounds Present Musculoskeletal MS Exam: Joints Intact, Normal Tone, Unable to Ambulate Integumentary Skin Exam: Warm, Dry Extremeties Extremities Exam: Pedal Pulses Palpable, Pitting Edema Neurologic Neuro Exam: Awake Assessment/Plan Discussed Condition With: Daughter Assessment Summary: CHRIS/Acute Renal Failure, Acute Tubular Necrosis, Fluid/ Volume Overload, Proteinuria, Hypertension Electrolyte Assessment: Hypernatremia Problem List: (1) Acute worsening of stage 4 chronic kidney disease Plan: She may have reached Stage V CKD. This may be her new baseline renal function. May need dialysis soon. Avoid nephrotoxic agents. Monitor urine output and renal function. (2) Hypernatremia Plan: Continue free water. Use Diuril for diuresis. (3) Hypertensive emergency Plan: BP is stable continue oral medications avoid NEGRITO due to CHRIS and angioedema (4) Thalamic hemorrhage Plan: due to hypertensive crisis neurosurgery following, non surgical management (5) Respiratory failure Plan: s/p trach with T piece appreciate respiratory therapy assistance Problem Qualifiers (1) Respiratory failure: Qualified Code: J96.00 - Acute respiratory failure, unspecified whether with hypoxia or hypercapnia Jamal Salazar MD Aug 30, 2016 09:49 Jamal Salazar MD Aug 30, 2016 09:49
[2016-08-30] MEDS: INSULIN DETEMIR 100 UNITS/ML VIAL SQ SCH ×2 (09:56→22:21)
[2016-08-30] MEDS: DOCUSATE SODIUM 50 MG/SENNA 8.6 MG TAB PO SCH ×2 (09:56→21:00)
[2016-08-30] MEDS: FAMOTIDINE 20 MG/2 ML VIAL IV PUSH SCH ×2 (09:57→21:02)
[2016-08-30] MEDS: cefTRIAXone INJ 1,000 MG in SODIUM CHLORIDE 0.9% INJ 100 ML IV SCH (11:23)
--- NOTE | 2016-08-30 13:12 | HHI.PR ---
Subjective Remarks Tongue swelling is gradually decreasing. Patient remains unable to verbalize or communicate. Cognitive deficit suspected. No apparent discomfort. Objective Vital Signs Date Time Temp Pulse Resp B/P Pulse Ox O2 Delivery O2 Flow Rate FiO2 08/30/16 12:16 98.7 75 14 123/63 100 08/30/16 11:28 100 T-piece 6.00 28 08/30/16 08:00 98.8 74 16 118/60 100 08/30/16 06:00 74 08/30/16 04:00 78 08/30/16 04:00 98.6 80 15 147/78 100 08/30/16 02:00 77 08/30/16 00:00 98.9 76 21 159/81 100 08/30/16 00:00 74 08/29/16 22:00 75 08/29/16 21:00 147/73 08/29/16 20:31 100 T-piece 28 08/29/16 20:30 164/80 08/29/16 20:00 80 08/29/16 20:00 99.2 86 20 156/107 100 08/29/16 17:00 82 13 164/84 100 08/29/16 16:00 98.9 84 14 100 I/O 08/29/16 08/29/16 08/29/16 08/30/16 08/30/16 08/30/16 07:00 15:00 23:00 07:00 15:00 23:00 Intake Total 1779 ml 964 ml 924 ml 970 ml Output Total 1850 ml 1000 ml 1200 ml 1150 ml Balance -71 ml -36 ml -276 ml -180 ml Intake Oral 0 ml 0 ml 0 ml IV Total 0 ml 100 ml 83 ml 71 ml Tube Feeding 579 ml 264 ml 241 ml 299 ml Other 1200 ml 600 ml 600 ml 600 ml Output Urine Total 1850 ml 1000 ml 1200 ml 1150 ml Emesis 0 ml Tube Feeding Residual Discard 0 ml # Bowel Movements 0 0 0 0 Result Diagram: 08/28/16 0447 08/29/16 1242 Objective Remarks GENERAL: NAD, A&Ox0, cannot talk secondary to tracheostomy HEAD: Normocephalic. Angioedema tongue present NECK: Supple, trachea midline. No lymphadenopathy. Tracheostomy present EYES: No scleral icterus. No injection or drainage. CARDIOVASCULAR: Regular rate and rhythm without murmurs, gallops, or rubs. RESPIRATORY: Breath sounds equal bilaterally. No accessory muscle use. GASTROINTESTINAL: Abdomen soft, non-tender, nondistended. MUSCULOSKELETAL: No cyanosis, or edema. SKIN: Warm and dry. NEURO: Global neurological deficitis. A/P Problem List: (1) Left basal ganglia hemorrhage (2) HCAP (healthcare-associated pneumonia) ICD Code: J18.9 (3) Hemorrhagic stroke ICD Code: I61.9 (4) Acute kidney failure ICD Code: N17.9 (5) Angioedema ICD Code: T78.3XXA (6) Acute respiratory failure ICD Code: J96.00 (7) Acute renal injury ICD Code: N17.9 (8) Hypertensive emergency ICD Code: I16.1 (9) Elevated serum creatinine ICD Code: R79.89 (10) Hypernatremia ICD Code: E87.0 (11) Respiratory failure ICD Code: J96.90 (12) 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 Status post lisinopril reaction with angioedema. Also admitted related to hypertensive urgency. Angioedema is improving slowly. No further respiratory distress. Stable for transfer out of ICU. Monitor leukocytosis. Treating UTI. Status post basal ganglia hemorrhage Persistent respiratory failure Persistent encephalopathy Headache May be secondary to basal ganglia hemorrhage When necessary pain treatments Acute hemorrhagic basal ganglia stroke Acute encephalopathy Maintain blood pressure control with systolic goal less than 160 mmHg Follow neurological status Neurosurgeon following Physical therapy Occupational therapy Out of bed to chair as tolerated Follow for improvement of encephalopathy. Acute hypoxic respiratory failure Hypercarbic respiratory failure Tracheostomy present Continue oxygenation via tracheostomy Tracheostomy care Pulmonary toilet Wean FiO2 as tolerated When necessary and scheduled nebulized treatments Pulmonology following Angioedema Secondary to lisinopril Avoid Rodger inhibitors Continue Decadron Continue Pepcid Continue Benadryl Follow for improvement Hypertension Recent hypertensive urgency Continue metoprolol Continue hydralazine Continue clonidine Continue nifedipine Avoid lisinopril as patient has allergy to this. Acute on chronic renal failure CKD stage IV Creatinine slowly improving Continue Diuril Monitor I's and O's Maintain [place] catheter Monitor renal function Hypernatremia Mildly elevated today follow sodium level Volume overload Monitor to establish stable fluid balance Acute protein calorie malnutrition Continue tube feedings Follow albumin Non-anion gap metabolic acidosis Improved Follow bicarbonate level MSSA pneumonia Treatment completed Escherichia coli UTI Rocephin 1 GM Daily Anemia Follow CBC daily Diabetes mellitus type 2 Continue Levemir 20 every 12 hours Sliding scale insulin next line follow blood sugars Patient nothing by mouth DVT prophylaxis SCDs and subcutaneous heparin GI prophylaxis Pepcid Lines: Peripheral IV [place] catheter Problem Qualifiers (1) Respiratory failure: Qualified Code: J96.00 - Acute respiratory failure, unspecified whether with hypoxia or hypercapnia Tato Gay MD Aug 30, 2016 13:12
[2016-08-30 16:59] LABS: MEAN CELL VOLUME 89.2 FL (80.0-100.0); MEAN CORPUSCULAR HEMOGLOBIN 26.6 PG (27.0-34.0); PLATELET COUNT 190 TH/MM3 (150-450); RED BLOOD COUNT 2.03 MIL/MM3 (4.00-5.30); RED CELL DISTRIBUTION WIDTH 14.8 % (11.6-17.2); WHITE BLOOD COUNT 17.5 TH/MM3 (4.0-11.0)
[2016-08-30 17:01] LABS: REVIEW FLAG FINAL
[2016-08-30 17:03] LABS: HEMATOCRIT 18.1 % (35.0-46.0)
[2016-08-30 17:14] LABS: BICARBONATE 27.6 MEQ/L (21.0-32.0); POTASSIUM 5.2 MEQ/L (3.5-5.1)
[2016-08-30 18:20] LABS: REVIEW FLAG FINAL
[2016-08-30 18:22] LABS: HEMATOCRIT 18.4 % (35.0-46.0)
--- NOTE | 2016-08-30 18:41 | HHI.PR ---
Subjective Remarks ass: IC BLEED S/P TRACH NO DISTRESS Objective Vital Signs Date Time Temp Pulse Resp B/P Pulse Ox O2 Delivery O2 Flow Rate FiO2 08/30/16 16:00 99.0 73 16 135/72 100 08/30/16 15:40 74 08/30/16 12:16 98.7 75 14 123/63 100 08/30/16 11:28 100 T-piece 6.00 28 08/30/16 08:00 98.8 74 16 118/60 100 08/30/16 06:00 74 08/30/16 04:00 78 08/30/16 04:00 98.6 80 15 147/78 100 08/30/16 02:00 77 08/30/16 00:00 98.9 76 21 159/81 100 08/30/16 00:00 74 08/29/16 22:00 75 08/29/16 21:00 147/73 08/29/16 20:31 100 T-piece 28 08/29/16 20:30 164/80 08/29/16 20:00 80 08/29/16 20:00 99.2 86 20 156/107 100 I/O 08/29/16 08/29/16 08/29/16 08/30/16 08/30/16 08/30/16 07:00 15:00 23:00 07:00 15:00 23:00 Intake Total 1779 ml 964 ml 924 ml 970 ml 1292 ml Output Total 1850 ml 1000 ml 1200 ml 1150 ml 1000 ml Balance -71 ml -36 ml -276 ml -180 ml 292 ml Intake Oral 0 ml 0 ml 0 ml IV Total 0 ml 100 ml 83 ml 71 ml 172 ml Tube Feeding 579 ml 264 ml 241 ml 299 ml 320 ml Other 1200 ml 600 ml 600 ml 600 ml 800 ml Output Urine Total 1850 ml 1000 ml 1200 ml 1150 ml 1000 ml Emesis 0 ml Tube Feeding Residual Discard 0 ml # Bowel Movements 0 0 0 0 Result Diagram: 08/30/16 1615 08/30/16 1615 Objective Remarks GENERAL: SKIN: Warm and dry. HEAD: Atraumatic. Normocephalic. tongue protruding EYES: Pupils equal and round. No scleral icterus. No injection or drainage. ENT: No nasal bleeding or discharge. Mucous membranes pink and moist. NECK: Trachea midline. trach in place . CARDIOVASCULAR: Regular rate and rhythm. RESPIRATORY: No accessory muscle use. Clear to auscultation. Breath sounds equal bilaterally. GASTROINTESTINAL: Abdomen soft, non-tender, nondistended. Hepatic and splenic margins not palpable. MUSCULOSKELETAL: Extremities without clubbing, cyanosis, or edema. No obvious deformities. NEUROLOGICAL: Awake and alert. No obvious cranial nerve deficits. Motor grossly within normal limits. Five out of 5 muscle strength in the arms and legs. Normal speech. PSYCHIATRIC: Appropriate mood and affect; insight and judgment normal. Assessment and Plan Assessment and Plan ass respiratory failure S/P IC bleed S/P Tracheostomy plan: O2 as needed pulmonary toilet Bianca Valenzuela MD Aug 30, 2016 18:41
[2016-08-30] MEDS: SODIUM CHLORIDE 0.9% FLUSH 10 ML FLUSH SCH (21:00)
[2016-08-31] VITALS (15 sets, daily range): BP systolic 113–167; BP diastolic 72–77; PULSE 71–86; RESP 12–17; TEMP 97.9–98.9; O2SAT 99–100
[2016-08-31] MEDS: NIFEdipine 10 MG CAP PO SCH ×4 (00:23→17:09)
[2016-08-31] MEDS: HYDROmorphone HCL PF 1 MG/ML VIAL IV PUSH PRN ×2 (02:55→12:21)
[2016-08-31] MEDS: FREE WATER G-TUBE SCH ×6 (04:00→19:37)
[2016-08-31] MEDS: CHLORHEXIDINE GLUCONATE 2 % 1 PACK (2 CLOTHS) TOP SCH (04:00)
[2016-08-31] MEDS: cloNIDine HCL 0.2 MG TAB PO SCH ×3 (05:50→20:25)
[2016-08-31] MEDS: HEPARIN SODIUM - SQ 10,000 UNITS/ML VIAL SQ SCH ×3 (05:51→20:25)
[2016-08-31] MEDS: hydrALAZINE HCL 100 MG TAB PO SCH ×3 (05:51→20:25)
[2016-08-31] MEDS: diphenhydrAMINE HCL 50 MG/ML VIAL IV SCH ×3 (05:51→17:09)
[2016-08-31] MEDS: METOPROLOL TARTRATE 25 MG TAB PO SCH ×3 (05:51→20:25)
[2016-08-31] MEDS: INSULIN ASPART SUPPLEMENTAL SCALE SQ SCH ×4 (06:48→20:23)
[2016-08-31] MEDS: SODIUM CHLORIDE 0.9% FLUSH 10 ML FLUSH SCH ×2 (09:00→21:00)
[2016-08-31] MEDS: INSULIN DETEMIR 100 UNITS/ML VIAL SQ SCH ×2 (09:00→20:22)
[2016-08-31] MEDS: DOCUSATE SODIUM 50 MG/SENNA 8.6 MG TAB PO SCH ×2 (09:00→20:25)
[2016-08-31] MEDS ORDERED: CHLOROTHIAZIDE SOD 500 MG VIAL IV ONE (09:15)
--- NOTE | 2016-08-31 09:16 | HHI.NPPN ---
Subjective General Problems: Edema Renal Failure: Acute Interval History Non oliguric. Significant drop in Hemoglobin noted yesterday. Blood transfusion ordered. Non oliguric. Patient is unable to provide history. Review of Systems General General Remarks unable to obtain Ears, Nose, & Throat ENT Remarks tongue swelling Objective Data Data 08/30/16 08/31/16 19:00 07:00 Intake Total 1292 ml 2197 ml Output Total 1000 ml 2300 ml Balance 292 ml -103 ml IV Total 172 ml 124 ml Tube Feeding 320 ml 623 ml Packed Cells 750 ml Other 800 ml 700 ml Output Urine Total 1000 ml 2300 ml # Bowel Movements 0 Vital Signs Date Time Temp Pulse Resp B/P Pulse Ox O2 Delivery O2 Flow Rate FiO2 08/31/16 08:04 100 T-piece 5.00 08/31/16 08:00 77 08/31/16 06:00 72 08/31/16 04:10 100 T-piece 5.00 28 08/31/16 04:00 76 08/31/16 04:00 98.9 76 13 167/77 100 08/31/16 02:00 73 08/31/16 00:00 98.7 77 12 137/74 100 08/31/16 00:00 72 08/30/16 22:00 77 08/30/16 20:00 98.8 77 14 149/79 100 08/30/16 20:00 75 08/30/16 16:00 99.0 73 16 135/72 100 08/30/16 15:40 74 08/30/16 12:16 98.7 75 14 123/63 100 08/30/16 11:28 100 T-piece 6.00 28 -: 08/30/16 1615 08/30/16 1615 Tubes & Lines: [place] Physical Exam General Appearance: No Acute Distress, Obese Eyes Eye Exam: Pupils Equal Throat Throat Exam: Oral Mucosa [place] & Moist Pulmonary Resp Exam: Breath Sounds Equal, Crackles Cardiology CV Exam: Regular, Normal Sinus Rhythm, Good Perfusion Gastrointestinal/Abdomen GI Exam: Non-Tender, Bowel Sounds Present Musculoskeletal MS Exam: Joints Intact, Normal Tone, Unable to Ambulate Integumentary Skin Exam: Warm, Dry Extremeties Extremities Exam: Pedal Pulses Palpable, Pitting Edema Neurologic Neuro Exam: Awake Assessment/Plan Discussed Condition With: Daughter Assessment Summary: CHRIS/Acute Renal Failure, Acute Tubular Necrosis, Fluid/ Volume Overload, Proteinuria, Hypertension Electrolyte Assessment: Hypernatremia Problem List: (1) Acute worsening of stage 4 chronic kidney disease Plan: She may have reached Stage V CKD. This may be her new baseline renal function. May need dialysis soon. Avoid nephrotoxic agents. Monitor urine output and renal function. (2) Hypernatremia Plan: Continue free water. Use Diuril for diuresis. (3) Hypertensive emergency Plan: BP is stable continue oral medications avoid NEGRITO due to CHRIS and angioedema (4) Thalamic hemorrhage Plan: due to hypertensive crisis neurosurgery following, non surgical management (5) Respiratory failure Plan: s/p trach with T piece appreciate respiratory therapy assistance (6) Anemia, unspecified Plan: Could be bleeding. Blood transfusion. Monitor. Problem Qualifiers (1) Respiratory failure: Qualified Code: J96.00 - Acute respiratory failure, unspecified whether with hypoxia or hypercapnia Jamal Salazar MD Aug 31, 2016 09:16
[2016-08-31] MEDS: FAMOTIDINE 20 MG/2 ML VIAL IV PUSH SCH ×2 (09:44→20:27)
[2016-08-31 10:54] LABS: MEAN CELL VOLUME 88.1 FL (80.0-100.0); MEAN CORPUSCULAR HEMOGLOBIN 28.1 PG (27.0-34.0); MEAN CORPUSCULAR HGB CONC 31.9 % (32.0-36.0); PLATELET COUNT 202 TH/MM3 (150-450); RED BLOOD COUNT 3.74 MIL/MM3 (4.00-5.30); RED CELL DISTRIBUTION WIDTH 14.5 % (11.6-17.2); REVIEW FLAG FINAL
[2016-08-31] MEDS: cefTRIAXone INJ 1,000 MG in SODIUM CHLORIDE 0.9% INJ 100 ML IV SCH (10:57)
[2016-08-31 11:16] LABS: BICARBONATE 26.4 MEQ/L (21.0-32.0); POTASSIUM 4.9 MEQ/L (3.5-5.1)
--- NOTE | 2016-08-31 13:56 | HHI.PR ---
Subjective Remarks Acute anemia occurred overnight. Etiology is not yet clear. Workup ongoing to determine if this is a GI etiology. Transfused 3 units overnight. Objective Vital Signs Date Time Temp Pulse Resp B/P Pulse Ox O2 Delivery O2 Flow Rate FiO2 08/31/16 12:00 98.8 80 17 138/74 100 08/31/16 12:00 80 08/31/16 10:00 86 08/31/16 08:04 100 T-piece 5.00 08/31/16 08:00 77 08/31/16 08:00 98.9 76 14 166/77 100 08/31/16 06:00 72 08/31/16 04:10 100 T-piece 5.00 28 08/31/16 04:00 76 08/31/16 04:00 98.9 76 13 167/77 100 08/31/16 02:00 73 08/31/16 00:00 98.7 77 12 137/74 100 08/31/16 00:00 72 08/30/16 22:00 77 08/30/16 20:00 98.8 77 14 149/79 100 08/30/16 20:00 75 08/30/16 16:00 99.0 73 16 135/72 100 08/30/16 15:40 74 I/O 08/30/16 08/30/16 08/30/16 08/31/16 08/31/16 08/31/16 07:00 15:00 23:00 07:00 15:00 23:00 Intake Total 970 ml 1292 ml 793 ml 1404 ml Output Total 1150 ml 1000 ml 1200 ml 1100 ml Balance -180 ml 292 ml -407 ml 304 ml Intake Oral 0 ml IV Total 71 ml 172 ml 84 ml 40 ml Tube Feeding 299 ml 320 ml 309 ml 314 ml Packed Cells 750 ml Other 600 ml 800 ml 400 ml 300 ml Output Urine Total 1150 ml 1000 ml 1200 ml 1100 ml # Bowel Movements 0 0 0 Result Diagram: 08/31/16 1030 08/31/16 1036 Objective Remarks GENERAL: NAD, A&Ox0, cannot talk secondary to tracheostomy HEAD: Normocephalic. Angioedema tongue present NECK: Supple, trachea midline. No lymphadenopathy. Tracheostomy present EYES: No scleral icterus. No injection or drainage. CARDIOVASCULAR: Regular rate and rhythm without murmurs, gallops, or rubs. RESPIRATORY: Breath sounds equal bilaterally. No accessory muscle use. GASTROINTESTINAL: Abdomen soft, non-tender, nondistended. MUSCULOSKELETAL: No cyanosis, or edema. SKIN: Warm and dry. NEURO: Global neurological deficitis. A/P Problem List: (1) Left basal ganglia hemorrhage (2) HCAP (healthcare-associated pneumonia) ICD Code: J18.9 (3) Hemorrhagic stroke ICD Code: I61.9 (4) Acute kidney failure ICD Code: N17.9 (5) Angioedema ICD Code: T78.3XXA (6) Acute respiratory failure ICD Code: J96.00 (7) Acute renal injury ICD Code: N17.9 (8) Hypertensive emergency ICD Code: I16.1 (9) Elevated serum creatinine ICD Code: R79.89 (10) Hypernatremia ICD Code: E87.0 (11) Respiratory failure ICD Code: J96.90 (12) 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 Status post lisinopril reaction with angioedema. Also admitted related to hypertensive urgency. Angioedema is improving slowly. Acute blood loss discovered last afternoon. Patient transfused 3 units of packed red blood cells 08/30/16. Anemia stabilized right now. Follow CBC. Acute blood loss anemia Follow CBC Status post 3 units of packed red blood cells transfused 08/30/16. Occult stool blood testing pending Consult gastroenterology if GI source is found Status post basal ganglia hemorrhage Persistent respiratory failure Persistent encephalopathy Headache May be secondary to basal ganglia hemorrhage When necessary pain treatments Acute hemorrhagic basal ganglia stroke Acute encephalopathy Maintain blood pressure control with systolic goal less than 160 mmHg Follow neurological status Neurosurgeon following Physical therapy Occupational therapy Out of bed to chair as tolerated Follow for improvement of encephalopathy. Acute hypoxic respiratory failure Hypercarbic respiratory failure Tracheostomy present Continue oxygenation via tracheostomy Tracheostomy care Pulmonary toilet Wean FiO2 as tolerated When necessary and scheduled nebulized treatments Pulmonology following Angioedema Secondary to lisinopril Avoid Rodger inhibitors Continue Decadron Continue Pepcid Continue Benadryl Follow for improvement Hypertension Recent hypertensive urgency Continue metoprolol Continue hydralazine Continue clonidine Continue nifedipine Avoid lisinopril as patient has allergy to this. Acute on chronic renal failure CKD stage IV Creatinine slowly improving Continue Diuril Monitor I's and O's Maintain [place] catheter Monitor renal function Hypernatremia Mildly elevated today follow sodium level Volume overload Monitor to establish stable fluid balance Acute protein calorie malnutrition Continue tube feedings Follow albumin Non-anion gap metabolic acidosis Improved Follow bicarbonate level MSSA pneumonia Treatment completed Escherichia coli UTI Rocephin 1 GM Daily Anemia Follow CBC daily Diabetes mellitus type 2 Continue Levemir 20 every 12 hours Sliding scale insulin next line follow blood sugars Patient nothing by mouth DVT prophylaxis SCDs and subcutaneous heparin GI prophylaxis Pepcid Lines: Peripheral IV [place] catheter Problem Qualifiers (1) Respiratory failure: Qualified Code: J96.00 - Acute respiratory failure, unspecified whether with hypoxia or hypercapnia Tato Gay MD Aug 31, 2016 13:56
[2016-08-31 13:57] LABS: HEMATOCRIT 32.5 % (35.0-46.0); MEAN CELL VOLUME 89.1 FL (80.0-100.0); MEAN CORPUSCULAR HEMOGLOBIN 28.4 PG (27.0-34.0); MEAN CORPUSCULAR HGB CONC 31.8 % (32.0-36.0); PLATELET COUNT 204 TH/MM3 (150-450); RED BLOOD COUNT 3.65 MIL/MM3 (4.00-5.30); RED CELL DISTRIBUTION WIDTH 14.7 % (11.6-17.2); REVIEW FLAG FINAL; WHITE BLOOD COUNT 21.2 TH/MM3 (4.0-11.0)
[2016-08-31 14:19] LABS: BICARBONATE 24.8 MEQ/L (21.0-32.0); POTASSIUM 4.9 MEQ/L (3.5-5.1)
--- NOTE | 2016-08-31 14:22 | HHI.PR ---
Subjective Remarks ass: IC BLEED S/P TRACH NO DISTRESS Objective Vital Signs Date Time Temp Pulse Resp B/P Pulse Ox O2 Delivery O2 Flow Rate FiO2 08/31/16 12:00 98.8 80 17 138/74 100 08/31/16 12:00 80 08/31/16 10:00 86 08/31/16 08:04 100 T-piece 5.00 08/31/16 08:00 77 08/31/16 08:00 98.9 76 14 166/77 100 08/31/16 06:00 72 08/31/16 04:10 100 T-piece 5.00 28 08/31/16 04:00 76 08/31/16 04:00 98.9 76 13 167/77 100 08/31/16 02:00 73 08/31/16 00:00 98.7 77 12 137/74 100 08/31/16 00:00 72 08/30/16 22:00 77 08/30/16 20:00 98.8 77 14 149/79 100 08/30/16 20:00 75 08/30/16 16:00 99.0 73 16 135/72 100 08/30/16 15:40 74 I/O 08/30/16 08/30/16 08/30/16 08/31/16 08/31/16 08/31/16 07:00 15:00 23:00 07:00 15:00 23:00 Intake Total 970 ml 1292 ml 793 ml 1404 ml Output Total 1150 ml 1000 ml 1200 ml 1100 ml Balance -180 ml 292 ml -407 ml 304 ml Intake Oral 0 ml IV Total 71 ml 172 ml 84 ml 40 ml Tube Feeding 299 ml 320 ml 309 ml 314 ml Packed Cells 750 ml Other 600 ml 800 ml 400 ml 300 ml Output Urine Total 1150 ml 1000 ml 1200 ml 1100 ml # Bowel Movements 0 0 0 Result Diagram: 08/31/16 1340 08/31/16 1340 Objective Remarks GENERAL: SKIN: Warm and dry. HEAD: Atraumatic. Normocephalic. tongue protruding EYES: Pupils equal and round. No scleral icterus. No injection or drainage. ENT: No nasal bleeding or discharge. Mucous membranes pink and moist. NECK: Trachea midline. trach in place . CARDIOVASCULAR: Regular rate and rhythm. RESPIRATORY: No accessory muscle use. Clear to auscultation. Breath sounds equal bilaterally. GASTROINTESTINAL: Abdomen soft, non-tender, nondistended. Hepatic and splenic margins not palpable. MUSCULOSKELETAL: Extremities without clubbing, cyanosis, or edema. No obvious deformities. NEUROLOGICAL: Awake and alert. No obvious cranial nerve deficits. Motor grossly within normal limits. Five out of 5 muscle strength in the arms and legs. Normal speech. PSYCHIATRIC: Appropriate mood and affect; insight and judgment normal. Assessment and Plan Assessment and Plan ass respiratory failure S/P IC bleed S/P Tracheostomy plan: O2 as needed pulmonary toilet Bianca Valenzuela MD Aug 31, 2016 14:22
[2016-09-01] VITALS (14 sets, daily range): BP systolic 134–172; BP diastolic 52–91; PULSE 70–88; RESP 12–18; TEMP 98.2–98.9; O2SAT 100
[2016-09-01] MEDS: NIFEdipine 10 MG CAP PO SCH ×4 (00:19→17:32)
[2016-09-01] MEDS: diphenhydrAMINE HCL 50 MG/ML VIAL IV SCH ×4 (00:21→17:32)
[2016-09-01] MEDS: HYDROmorphone HCL PF 1 MG/ML VIAL IV PUSH PRN ×2 (03:00→11:28)
[2016-09-01] MEDS: CHLORHEXIDINE GLUCONATE 2 % 1 PACK (2 CLOTHS) TOP SCH (04:00)
[2016-09-01] MEDS: FREE WATER G-TUBE SCH ×6 (04:00→20:00)
[2016-09-01 05:09] LABS: HEMATOCRIT 32.6 % (35.0-46.0); MEAN CELL VOLUME 89.5 FL (80.0-100.0); MEAN CORPUSCULAR HEMOGLOBIN 28.9 PG (27.0-34.0); MEAN CORPUSCULAR HGB CONC 32.3 % (32.0-36.0); PLATELET COUNT 204 TH/MM3 (150-450); RED BLOOD COUNT 3.65 MIL/MM3 (4.00-5.30); REVIEW FLAG FINAL; WHITE BLOOD COUNT 17.1 TH/MM3 (4.0-11.0)
[2016-09-01 05:25] LABS: BICARBONATE 27.2 MEQ/L (21.0-32.0); POTASSIUM 5.1 MEQ/L (3.5-5.1)
[2016-09-01] MEDS: cloNIDine HCL 0.2 MG TAB PO SCH ×3 (06:29→21:03)
[2016-09-01] MEDS: METOPROLOL TARTRATE 25 MG TAB PO SCH ×3 (06:29→21:03)
[2016-09-01] MEDS: hydrALAZINE HCL 100 MG TAB PO SCH ×3 (06:29→21:03)
[2016-09-01] MEDS: HEPARIN SODIUM - SQ 10,000 UNITS/ML VIAL SQ SCH ×3 (06:30→21:03)
[2016-09-01] MEDS: INSULIN ASPART SUPPLEMENTAL SCALE SQ SCH ×4 (07:00→21:36)
[2016-09-01] MEDS: SODIUM CHLORIDE 0.9% FLUSH 10 ML FLUSH SCH ×2 (08:02→21:00)
[2016-09-01] MEDS: FAMOTIDINE 20 MG/2 ML VIAL IV PUSH SCH ×2 (08:02→20:59)
[2016-09-01] MEDS: INSULIN DETEMIR 100 UNITS/ML VIAL SQ SCH ×2 (08:03→21:35)
[2016-09-01] MEDS: DOCUSATE SODIUM 50 MG/SENNA 8.6 MG TAB PO SCH ×2 (08:03→21:03)
--- NOTE | 2016-09-01 10:15 | HHI.NPPN ---
Subjective General Problems: Edema Renal Failure: Acute Interval History Creatinine is higher today. She is nonoliguric. (Miguelina Walsh) Review of Systems General General Remarks unable to obtain (Miguelina Walsh) Ears, Nose, & Throat ENT Remarks tongue swelling (Miguelina Walsh) Objective Data Data 08/31/16 09/01/16 19:00 07:00 Intake Total 624 ml 1592 ml Output Total 1600 ml 1902 ml Balance -976 ml -310 ml IV Total 148 ml 118 ml Tube Feeding 316 ml 574 ml Tube Irrigant 160 ml Other 900 ml Output Urine Total 1600 ml 1902 ml # Bowel Movements 0 0 Vital Signs Date Time Temp Pulse Resp B/P Pulse Ox O2 Delivery O2 Flow Rate FiO2 09/01/16 09:27 100 T-piece 28 09/01/16 06:00 82 09/01/16 04:00 98.3 78 16 151/82 100 09/01/16 04:00 83 09/01/16 02:00 85 09/01/16 00:00 83 09/01/16 00:00 98.2 83 12 172/91 100 08/31/16 22:00 79 08/31/16 20:52 100 T-piece 6.00 28 08/31/16 20:00 98.5 77 12 127/74 99 08/31/16 20:00 71 08/31/16 18:00 76 08/31/16 16:00 97.9 72 12 113/72 100 08/31/16 16:00 72 08/31/16 14:00 73 08/31/16 12:00 98.8 80 17 138/74 100 08/31/16 12:00 80 (Miguelina Walsh) -: 09/01/16 0449 09/01/16 0449 Tubes & Lines: [place] (Miguelina Walsh) Physical Exam General Appearance: No Acute Distress, Obese (Miguelina Walsh) Eyes Eye Exam: Pupils Equal (Miguelina Walsh) Throat Throat Exam: Oral Mucosa [place] & Moist Throat Remarks angioedema of tongue present, +trach (Miguelina Walsh) Pulmonary Resp Exam: Breath Sounds Equal, Crackles (Miguelina Walsh) Cardiology CV Exam: Regular, Normal Sinus Rhythm, Good Perfusion (Miguelina Walsh) Gastrointestinal/Abdomen GI Exam: Non-Tender, Bowel Sounds Present GI Remarks obese + PEG (Miguelina WalshP) Musculoskeletal MS Exam: Joints Intact, Normal Tone, Unable to Ambulate (Miguelina WalshP) Integumentary Skin Exam: Warm, Dry (Miguelina Walsh) Extremeties Extremities Exam: Pedal Pulses Palpable, Pitting Edema (Miguelina Walsh ) Neurologic Neuro Exam: Awake Neuro Remarks right side flaccid (Miguelina Walsh) Assessment/Plan Discussed Condition With: Daughter Assessment Summary: CHRIS/Acute Renal Failure, Acute Tubular Necrosis, Fluid/ Volume Overload, Proteinuria, Hypertension Electrolyte Assessment: Hypernatremia Problem List: (1) Acute worsening of stage 4 chronic kidney disease Plan: Creatinine is worse today she is still making urine at this time continue to monitor, she likely had CKD prior to admission. This may be her new baseline renal function, and she may need dialysis soon. Avoid nephrotoxic agents. Monitor urine output and renal function. (2) Hypernatremia Plan: Continue free water, 300 Q4h Use Diuril if needed for diuresis. stop 0.9% infusing (3) Hypertensive emergency Plan: BP is stable continue oral medications avoid NEGRITO due to CHRIS and angioedema (4) Thalamic hemorrhage Plan: due to hypertensive crisis neurosurgery following, non surgical management (5) Respiratory failure Plan: s/p trach with T piece appreciate respiratory therapy assistance (6) Anemia, unspecified Plan: s/p transfusion yesterday, Hb improved awaiting stool for occult bleeding (Miguelina Walsh) Plan patient was seen and examined. Agree with above assessment and plan. (Jamal Salazar MD) Problem Qualifiers (1) Respiratory failure: Qualified Code: J96.00 - Acute respiratory failure, unspecified whether with hypoxia or hypercapnia Miguelina Walsh Sep 01, 2016 10:15 Jamal Salazar MD Sep 01, 2016 14:57
--- NOTE | 2016-09-01 11:05 | HHI.PR ---
Subjective Remarks This is a pleasant 56 y/o Female who came to ER with right sided weakness, non verbal, CT brain with left basal ganglia hemorrhagic stroke. She was intubated by an ER attending for an airway protection admitted to ICU. on 08/20/16 had fever and Leukocytosis, started on Zosyn blood cultures performed, Nephrology specialist following, with diagnosis of Acute Kidney Injury on chronic kidney Disease stage IV, May need Dialysis, Hypernatremia on free water intake, Hypertensive Emergency BP stable, to avoid RODGER inhibitors due to worsening renal function and Angioedema. Seen in her bedroom in the presence of nurse, no nausea, vomit or diarrhea, continue working with PT specialist. Objective Vital Signs Date Time Temp Pulse Resp B/P Pulse Ox O2 Delivery O2 Flow Rate FiO2 09/01/16 09:27 100 T-piece 28 09/01/16 06:00 82 09/01/16 04:00 98.3 78 16 151/82 100 09/01/16 04:00 83 09/01/16 02:00 85 09/01/16 00:00 83 09/01/16 00:00 98.2 83 12 172/91 100 08/31/16 22:00 79 08/31/16 20:52 100 T-piece 6.00 28 08/31/16 20:00 98.5 77 12 127/74 99 08/31/16 20:00 71 08/31/16 18:00 76 08/31/16 16:00 97.9 72 12 113/72 100 08/31/16 16:00 72 08/31/16 14:00 73 08/31/16 12:00 98.8 80 17 138/74 100 08/31/16 12:00 80 I/O 08/31/16 08/31/16 08/31/16 09/01/16 09/01/16 09/01/16 07:00 15:00 23:00 07:00 15:00 23:00 Intake Total 1404 ml 624 ml 635 ml 957 ml Output Total 1100 ml 1600 ml 952 ml 950 ml Balance 304 ml -976 ml -317 ml 7 ml IV Total 40 ml 148 ml 48 ml 70 ml Tube Feeding 314 ml 316 ml 287 ml 287 ml Packed Cells 750 ml Tube Irrigant 160 ml Other 300 ml 300 ml 600 ml Output Urine Total 1100 ml 1600 ml 952 ml 950 ml # Bowel Movements 0 0 0 0 Result Diagram: 09/01/16 0449 09/01/16 0449 Imaging Last Impressions Chest X-Ray 08/25/16 0600 Signed Impressions: Service Date/Time: Thursday, August 25, 2016 03:00 - CONCLUSION: No acute cardiopulmonary disease. Khadijah Jacob MD Renal Ultrasound 08/18/16 0000 Signed Impressions: Service Date/Time: Thursday, August 18, 2016 20:22 - CONCLUSION: 1. Small echogenic kidneys typical of chronic parenchymal disease. No evidence of obstructive uropathy or other acute renal abnormality. 2. Chacon in the bladder, grossly unremarkable. 3. Apparent small retroperitoneal free fluid, etiology uncertain. Estrada Dunham MD Abdomen X-Ray 08/16/16 0000 Signed Impressions: Service Date/Time: Tuesday, August 16, 2016 08:05 - CONCLUSION: Is a chest tube tip in stomach. Side port in the region of the gastroesophageal junction. Jhony Kirkpatrick MD Head CT 08/13/16 0800 Signed Impressions: Service Date/Time: Saturday, August 13, 2016 04:37 - CONCLUSION: Stable brain appearance Estrada Snow MD Procedures Endotracheal Intubation and extubation Tracheostomy PEG tube placement. Other Results Laboratory Tests Test 08/28/16 08/29/16 08/30/16 08/30/16 04:47 12:42 05:50 18:43 Neutrophils (%) (Auto) 88.4 % Lymphocytes (%) (Auto) 5.1 % Monocytes (%) (Auto) 5.5 % Eosinophils (%) (Auto) 0.8 % Basophils (%) (Auto) 0.2 % Neutrophils # (Auto) 20.2 TH/MM3 Lymphocytes # (Auto) 1.2 TH/MM3 Monocytes # (Auto) 1.3 TH/MM3 Eosinophils # (Auto) 0.2 TH/MM3 Basophils # (Auto) 0.0 TH/MM3 CBC Comment AUTO DIFF Differential Total Cells 100 Counted Neutrophils % (Manual) 86 % Lymphocytes % 6 % Monocytes % 7 % Neutrophils # (Manual) 19.8 TH/MM3 Metamyelocytes 1 % Nucleated Red Blood Cells 1 /100 WBC Differential Comment FINAL DIFF MANUAL Platelet Estimate NORMAL Platelet Morphology Comment NORMAL Magnesium Level 3.1 MG/DL Total Bilirubin 0.3 MG/DL Aspartate Amino Transf 49 U/L (AST/SGOT) Alanine Aminotransferase 78 U/L (ALT/SGPT) Alkaline Phosphatase 133 U/L Total Protein 7.4 GM/DL Phosphorus Level 3.1 MG/DL Albumin 2.6 GM/DL Urine Color LIGHT-YELLOW Urine Turbidity CLEAR Urine pH 8.0 Urine Specific Babb 1.009 Urine Protein 30 mg/dL Urine Glucose (UA) NEG mg/dL Urine Ketones NEG mg/dL Urine Occult Blood TRACE Urine Nitrite NEG Urine Bilirubin NEG Urine Urobilinogen LESS THAN 2.0 MG/DL Urine Leukocyte Esterase SMALL Urine RBC 7 /hpf Urine WBC 5 /hpf Urine Squamous Epithelial <1 /hpf Cells Urine Bacteria RARE /hpf Urine Mucus FEW /lpf Microscopic Urinalysis Comment CATH-CULTURE IND Blood Type O POSITIVE Antibody Screen NEGATIVE Crossmatch Leukocyte-Reduced Red Blood Cells Blood Bank Comment Test 09/01/16 04:49 White Blood Count 17.1 TH/MM3 Red Blood Count 3.65 MIL/MM3 Hemoglobin 10.5 GM/DL Hematocrit 32.6 % Mean Corpuscular Volume 89.5 FL Mean Corpuscular Hemoglobin 28.9 PG Mean Corpuscular Hemoglobin 32.3 % Concent Red Cell Distribution Width 15.0 % Platelet Count 204 TH/MM3 Mean Platelet Volume 10.4 FL Sodium Level 149 MEQ/L Potassium Level 5.1 MEQ/L Chloride Level 115 MEQ/L Carbon Dioxide Level 27.2 MEQ/L Anion Gap 7 MEQ/L Blood Urea Nitrogen 81 MG/DL Creatinine 3.74 MG/DL Estimat Glomerular Filtration 15 ML/MIN Rate Random Glucose 137 MG/DL Calcium Level 8.5 MG/DL Objective Remarks GENERAL: NAD, A&Ox0. HEAD: Normocephalic. Angioedema tongue present NECK: Supple, trachea midline. No lymphadenopathy. Tracheostomy present EYES: No scleral icterus. No injection or drainage. CARDIOVASCULAR: Regular rate and rhythm without murmurs, gallops, or rubs. RESPIRATORY: Breath sounds equal bilaterally. No accessory muscle use. GASTROINTESTINAL: Abdomen soft, non-tender, nondistended. PEG tube in place. MUSCULOSKELETAL: No cyanosis, or edema. SKIN: Warm and dry. NEURO: Alert, looks oriented and moves all four extremities. Medications and IVs Current Medications Medications (Trade) Dose Ordered Sig/Jones Route Start Time Stop Time Status Last Admin (NS Flush) 2 ml UNSCH PRN .XX 08/12/16 18:30 (NS Flush) 2 ml BID .XX 08/12/16 21:00 09/01/16 08:02 (Tylenol) 650 mg Q6H PRN PO 08/12/16 18:30 08/26/16 10:25 Miscellaneous Information 1 Q361D XX 08/12/16 18:30 (Chlorhexidine 2% Cloth) 3 pack Taper DAILY@04 TOP 08/13/16 04:00 08/09/17 03:59 09/01/16 04:00 (Chlorhexidine 2% Cloth) 3 pack UNSCH PRN TOP 08/12/16 18:30 (Adele-Colace) 1 tab BID PO 08/12/16 21:00 09/01/16 08:03 (Milk Of Magnesia Liq) 30 ml Q12H PRN PO 08/12/16 18:30 08/23/16 09:14 (Senokot) 17.2 mg Q12H PRN PO 08/12/16 18:30 08/23/16 05:10 (Dulcolax Supp) 10 mg DAILY PRN RECTAL 08/12/16 18:30 08/23/16 09:14 (Lactulose Liq) 30 ml DAILY PRN PO 08/12/16 18:30 08/23/16 09:14 (Apresoline Inj) 20 mg Q4H PRN IV PUSH 08/12/16 20:30 08/28/16 10:30 (Trandate Inj) 10 mg Q4H PRN IV PUSH 08/12/16 20:30 08/28/16 15:58 (Apresoline) 100 mg Q8HR PO 08/16/16 07:30 09/01/16 06:29 (D50w (Vial) Inj) 50 ml UNSCH PRN IV 08/17/16 09:15 08/23/16 06:38 (Glucagon Inj) 1 mg UNSCH PRN OTHER 08/17/16 09:15 (Procardia) 10 mg Q6HR PO 08/19/16 12:00 09/01/16 06:29 Terbutaline Sulfate 1 mg 1 mg UNSCH PRN SQ 08/19/16 07:00 (Rocephin Inj/NS Inj) 100 ml @ 200 mls/hr Q24H IV 08/22/16 11:00 08/31/16 10:57 (Benadryl Inj) 50 mg Q6H IV 08/23/16 05:00 09/01/16 06:30 (Pepcid Inj) 10 mg Q12HR IV PUSH 08/23/16 21:00 09/01/16 08:02 (Heparin Inj) 5,000 units Q8HR SQ 08/24/16 14:00 09/01/16 06:30 (Catapres) 0.4 mg Q8HR PO 08/26/16 14:00 09/01/16 06:29 (Lopressor) 25 mg Q8HR PO 08/26/16 08:00 09/01/16 06:29 (Levemir Inj) 20 units Q12HR SQ 08/26/16 09:00 09/01/16 08:03 (Dilaudid Pf Inj) 0.5 mg Q4H PRN IV PUSH 08/28/16 08:15 09/01/16 03:00 (Catapres-Tts 0.3 Mg Patch.7d) 1 patch Q7D T-DERMAL 08/28/16 13:00 08/28/16 13:14 Miscellaneous Information 1 Q7D T-DERMAL 09/04/16 13:00 (Free Water) 300 ml Q4H G-TUBE 08/28/16 16:00 09/01/16 08:00 A/P Assessment and Plan 56-year-old female admitted secondary to basal ganglia hemorrhage related to hypertension. Status post lisinopril reaction with angioedema. Also admitted related to hypertensive urgency. Angioedema is improving slowly. Acute blood loss discovered last afternoon. Patient transfused 3 units of packed red blood cells 08/30/16. Anemia stabilized right now. Follow CBC. Acute blood loss anemia Follow CBC Status post 3 units of packed red blood cells transfused 08/30/16. Occult stool blood testing pending Status post basal ganglia hemorrhage Persistent respiratory failure Persistent encephalopathy Headache May be secondary to basal ganglia hemorrhage When necessary pain treatments Acute hemorrhagic basal ganglia stroke Acute encephalopathy Maintain blood pressure control with systolic goal less than 160 mmHg Follow neurological status Neurosurgeon following Physical therapy Occupational therapy Out of bed to chair as tolerated Follow for improvement of encephalopathy. Acute hypoxic respiratory failure Hypercarbic respiratory failure Tracheostomy present Continue oxygenation via tracheostomy Tracheostomy care Pulmonary toilet Wean FiO2 as tolerated When necessary and scheduled nebulized treatments Pulmonology following Angioedema Secondary to lisinopril Avoid Rodger inhibitors Continue Decadron Continue Pepcid Continue Benadryl Follow for improvement Hypertension Recent hypertensive urgency Continue metoprolol Continue hydralazine Continue clonidine Continue nifedipine Avoid lisinopril as patient has allergy to this. Acute on chronic renal failure CKD stage IV Creatinine slowly improving Continue Diuril Monitor I's and O's Maintain Chacon catheter May need Hemodialysis. Hypernatremia Mildly elevated today follow sodium level Volume overload Monitor to establish stable fluid balance Acute protein calorie malnutrition Continue tube feedings Follow albumin MSSA pneumonia Treatment completed Escherichia coli UTI Rocephin 1 GM Daily Anemia Follow CBC daily Diabetes mellitus type 2 Continue Levemir 20 every 12 hours Sliding scale insulin next line follow blood sugars Patient nothing by mouth DVT prophylaxis SCDs and subcutaneous heparin GI prophylaxis Pepcid Lines: Peripheral IV Chacon catheter Discharge Planning Not yet cleared for discharge. Rick Barba MD Sep 01, 2016 11:04 Rick Barba MD Sep 01, 2016 11:04
[2016-09-01] MEDS: cefTRIAXone INJ 1,000 MG in SODIUM CHLORIDE 0.9% INJ 100 ML IV SCH (11:10)
--- NOTE | 2016-09-01 16:06 | HHI.PR ---
Subjective Remarks ass: IC BLEED S/P TRACH NO DISTRESS Objective Vital Signs Date Time Temp Pulse Resp B/P Pulse Ox O2 Delivery O2 Flow Rate FiO2 09/01/16 14:00 70 09/01/16 12:00 98.6 70 12 143/79 100 09/01/16 12:00 78 09/01/16 10:00 74 09/01/16 09:27 100 T-piece 28 09/01/16 08:00 82 09/01/16 08:00 98.9 82 14 154/88 100 09/01/16 06:00 82 09/01/16 04:00 98.3 78 16 151/82 100 09/01/16 04:00 83 09/01/16 02:00 85 09/01/16 00:00 83 09/01/16 00:00 98.2 83 12 172/91 100 08/31/16 22:00 79 08/31/16 20:52 100 T-piece 6.00 28 08/31/16 20:00 98.5 77 12 127/74 99 08/31/16 20:00 71 08/31/16 18:00 76 I/O 08/31/16 08/31/16 08/31/16 09/01/16 09/01/16 09/01/16 07:00 15:00 23:00 07:00 15:00 23:00 Intake Total 1404 ml 624 ml 635 ml 957 ml 1172 ml Output Total 1100 ml 1600 ml 952 ml 950 ml 1350 ml Balance 304 ml -976 ml -317 ml 7 ml -178 ml IV Total 40 ml 148 ml 48 ml 70 ml Tube Feeding 314 ml 316 ml 287 ml 287 ml 372 ml Packed Cells 750 ml Tube Irrigant 160 ml 200 ml Other 300 ml 300 ml 600 ml 600 ml Output Urine Total 1100 ml 1600 ml 952 ml 950 ml 1350 ml # Bowel Movements 0 0 0 0 Result Diagram: 09/01/1644809/01/16448 Objective Remarks GENERAL: SKIN: Warm and dry. HEAD: Atraumatic. Normocephalic. tongue protruding EYES: Pupils equal and round. No scleral icterus. No injection or drainage. ENT: No nasal bleeding or discharge. Mucous membranes pink and moist. NECK: Trachea midline. trach in place . CARDIOVASCULAR: Regular rate and rhythm. RESPIRATORY: No accessory muscle use. Clear to auscultation. Breath sounds equal bilaterally. GASTROINTESTINAL: Abdomen soft, non-tender, nondistended. Hepatic and splenic margins not palpable. MUSCULOSKELETAL: Extremities without clubbing, cyanosis, or edema. No obvious deformities. NEUROLOGICAL: Awake and alert. No obvious cranial nerve deficits. Motor grossly within normal limits. Five out of 5 muscle strength in the arms and legs. Normal speech. PSYCHIATRIC: Appropriate mood and affect; insight and judgment normal. Assessment and Plan Assessment and Plan ass respiratory failure S/P IC bleed S/P Tracheostomy plan: O2 as needed pulmonary toilet WILL KEEP TRACH IN [place]DELIA TONGUE IS OBSTRUCTING AIRWAY Bianca Valenzuela MD Sep 01, 2016 16:06
[2016-09-02] VITALS (13 sets, daily range): BP systolic 113–158; BP diastolic 68–86; PULSE 72–96; RESP 14–22; TEMP 98.5–99.6; O2SAT 100
[2016-09-02] MEDS: diphenhydrAMINE HCL 50 MG/ML VIAL IV SCH ×5 (00:26→21:21)
[2016-09-02] MEDS: NIFEdipine 10 MG CAP PO SCH ×4 (00:26→16:39)
[2016-09-02] MEDS: FREE WATER G-TUBE SCH ×7 (04:00→23:01)
[2016-09-02] MEDS: CHLORHEXIDINE GLUCONATE 2 % 1 PACK (2 CLOTHS) TOP SCH (04:00)
[2016-09-02] MEDS: hydrALAZINE HCL 100 MG TAB PO SCH ×3 (06:01→21:19)
[2016-09-02] MEDS: METOPROLOL TARTRATE 25 MG TAB PO SCH ×3 (06:01→21:26)
[2016-09-02] MEDS: cloNIDine HCL 0.2 MG TAB PO SCH ×3 (06:02→21:20)
[2016-09-02] MEDS: HEPARIN SODIUM - SQ 10,000 UNITS/ML VIAL SQ SCH ×3 (06:02→21:21)
[2016-09-02] MEDS: INSULIN ASPART SUPPLEMENTAL SCALE SQ SCH ×4 (06:32→21:00)
[2016-09-02] MEDS: FAMOTIDINE 20 MG/2 ML VIAL IV PUSH SCH ×2 (08:35→21:21)
[2016-09-02] MEDS: SODIUM CHLORIDE 0.9% FLUSH 10 ML FLUSH SCH ×2 (08:35→21:19)
[2016-09-02] MEDS: DOCUSATE SODIUM 50 MG/SENNA 8.6 MG TAB PO SCH ×2 (08:35→21:20)
[2016-09-02] MEDS: INSULIN DETEMIR 100 UNITS/ML VIAL SQ SCH ×2 (08:37→21:00)
--- NOTE | 2016-09-02 10:06 | HHI.NPPN ---
Subjective General Problems: Edema Renal Failure: Acute Interval History No acute overnight events. She has excellent urine output. (Miguelina Walsh) Review of Systems General General Remarks unable to obtain (Miguelina Walsh) Ears, Nose, & Throat ENT Remarks tongue swelling (Miguelina Walsh) Objective Data Data 09/01/16 09/02/16 18:59 06:59 Intake Total 1172 ml 1620 ml Output Total 1350 ml 2000 ml Balance -178 ml -380 ml Tube Feeding 372 ml 720 ml Tube Irrigant 200 ml Other 600 ml 900 ml Output Urine Total 1350 ml 2000 ml # Bowel Movements 1 Vital Signs Date Time Temp Pulse Resp B/P Pulse Ox O2 Delivery O2 Flow Rate FiO2 09/02/16 08:45 100 T-piece 28 09/02/16 08:00 99.6 82 18 150/76 100 09/02/16 08:00 85 09/02/16 06:00 84 09/02/16 04:00 98.7 77 14 113/68 100 09/02/16 04:00 77 09/02/16 02:00 72 09/02/16 00:00 98.9 96 20 136/80 100 09/02/16 00:00 96 09/01/16 22:00 80 09/01/16 20:36 100 T-piece 28 09/01/16 20:00 98.4 84 18 141/52 100 09/01/16 20:00 88 09/01/16 18:00 74 09/01/16 16:00 75 09/01/16 16:00 98.6 75 12 134/81 100 09/01/16 14:00 70 09/01/16 12:00 98.6 70 12 143/79 100 09/01/16 12:00 78 (Miguelina Walsh) -: 09/01/16 0449 09/01/16 0449 Tubes & Lines: Chacon (Miguelina Walsh) Physical Exam General Appearance: No Acute Distress, Obese (Miguelina Walsh) Eyes Eye Exam: Pupils Equal (Miguelina Walsh) Throat Throat Exam: Oral Mucosa Ephraim & Moist Throat Remarks angioedema of tongue present, +trach (Miguelina Walsh) Pulmonary Resp Exam: Breath Sounds Equal, Crackles (Miguelina Walsh) Cardiology CV Exam: Regular, Normal Sinus Rhythm, Good Perfusion (Miguelina Walsh) Gastrointestinal/Abdomen GI Exam: Non-Tender, Bowel Sounds Present GI Remarks obese + PEG (Miguelina Walsh) Musculoskeletal MS Exam: Joints Intact, Normal Tone, Unable to Ambulate (Miguelina Walsh) Integumentary Skin Exam: Warm, Dry (Miguelina Walsh) Extremeties Extremities Exam: Pedal Pulses Palpable, Pitting Edema (Miguelina Walsh ) Neurologic Neuro Exam: Awake Neuro Remarks right side flaccid (Miguelina Walsh) Assessment/Plan Discussed Condition With: Daughter Assessment Summary: CHRIS/Acute Renal Failure, Acute Tubular Necrosis, Fluid/ Volume Overload, Proteinuria, Hypertension Electrolyte Assessment: Hypernatremia Problem List: (1) Acute worsening of stage 4 chronic kidney disease Plan: today's renal panel in process she is nonoliguric, excellent urine output at this time continue to monitor, she likely had CKD prior to admission. This may be her new baseline renal function, and she may need dialysis soon. Avoid nephrotoxic agents. Monitor urine output and renal function. (2) Hypernatremia Plan: start 1/4 NS @ 50cc, Continue free water, 300 Q4h Use Diuril if needed for diuresis. (3) Hypertensive emergency Plan: BP is stable continue oral medications avoid NEGRITO due to CHRIS and angioedema (4) Thalamic hemorrhage Plan: due to hypertensive crisis neurosurgery following, non surgical management (5) Respiratory failure Plan: s/p trach with T piece appreciate respiratory therapy assistance (6) Anemia, unspecified Plan: Hb stable, was transfused over the weekend (Miguelina Walsh) Plan patient was seen and examined. Agree with above assessment and plan. (Jamal Salazar MD) Problem Qualifiers (1) Respiratory failure: Qualified Code: J96.00 - Acute respiratory failure, unspecified whether with hypoxia or hypercapnia Miguelina Walsh Sep 02, 2016 10:06 Jamal Salazar MD Sep 02, 2016 14:32
[2016-09-02] MEDS: SODIUM CHLORIDE 23.4% INJ 38.5 MEQ in WATER STERILE FOR INJ 1,000 ML IV SCH (11:00)
[2016-09-02] MEDS: cefTRIAXone INJ 1,000 MG in SODIUM CHLORIDE 0.9% INJ 100 ML IV SCH (11:29)
[2016-09-02 11:54] LABS: BICARBONATE 27.4 MEQ/L (21.0-32.0); POTASSIUM 4.5 MEQ/L (3.5-5.1)
[2016-09-02] MEDS: HYDROmorphone HCL PF 1 MG/ML VIAL IV PUSH PRN (13:40)
--- NOTE | 2016-09-02 14:34 | HHI.PR ---
Subjective Remarks This is a pleasant 56 y/o Female who came to ER with right sided weakness, non verbal, CT brain with left basal ganglia hemorrhagic stroke. She was intubated by an ER attending for an airway protection admitted to ICU. on 08/20/16 had fever and Leukocytosis, started on Zosyn blood cultures performed, Nephrology specialist following, with diagnosis of Acute Kidney Injury on chronic kidney Disease stage IV, May need Dialysis, Hypernatremia on free water intake, Hypertensive Emergency BP stable, to avoid RODGER inhibitors due to worsening renal function and Angioedema. Stable in her bedroom discussed with nurse Miss Lo, no nausea, vomit or diarrhea, continue important tongue swelling. Objective Vital Signs Date Time Temp Pulse Resp B/P Pulse Ox O2 Delivery O2 Flow Rate FiO2 09/02/16 12:00 91 09/02/16 12:00 98.9 92 22 148/84 100 09/02/16 10:00 89 09/02/16 08:45 100 T-piece 28 09/02/16 08:00 99.6 82 18 150/76 100 09/02/16 08:00 85 09/02/16 06:00 84 09/02/16 04:00 98.7 77 14 113/68 100 09/02/16 04:00 77 09/02/16 02:00 72 09/02/16 00:00 98.9 96 20 136/80 100 09/02/16 00:00 96 09/01/16 22:00 80 09/01/16 20:36 100 T-piece 28 09/01/16 20:00 98.4 84 18 141/52 100 09/01/16 20:00 88 09/01/16 18:00 74 09/01/16 16:00 75 09/01/16 16:00 98.6 75 12 134/81 100 I/O 09/01/16 09/01/16 09/01/16 09/02/16 09/02/16 09/02/16 07:00 15:00 23:00 07:00 15:00 23:00 Intake Total 957 ml 1172 ml 660 ml 960 ml Output Total 950 ml 1350 ml 1100 ml 900 ml Balance 7 ml -178 ml -440 ml 60 ml IV Total 70 ml Tube Feeding 287 ml 372 ml 360 ml 360 ml Tube Irrigant 200 ml Other 600 ml 600 ml 300 ml 600 ml Output Urine Total 950 ml 1350 ml 1100 ml 900 ml # Bowel Movements 0 1 0 Result Diagram: 09/01/16 0449 09/02/16 1052 Imaging Last Impressions Chest X-Ray 08/25/16 0600 Signed Impressions: Service Date/Time: Thursday, August 25, 2016 03:00 - CONCLUSION: No acute cardiopulmonary disease. Khadijah Jacob MD Renal Ultrasound 08/18/16 0000 Signed Impressions: Service Date/Time: Thursday, August 18, 2016 20:22 - CONCLUSION: 1. Small echogenic kidneys typical of chronic parenchymal disease. No evidence of obstructive uropathy or other acute renal abnormality. 2. Chacon in the bladder, grossly unremarkable. 3. Apparent small retroperitoneal free fluid, etiology uncertain. Estrada Dunham MD Abdomen X-Ray 08/16/16 0000 Signed Impressions: Service Date/Time: Tuesday, August 16, 2016 08:05 - CONCLUSION: Is a chest tube tip in stomach. Side port in the region of the gastroesophageal junction. Jhony Kirkpatrick MD Head CT 08/13/16 0800 Signed Impressions: Service Date/Time: Saturday, August 13, 2016 04:37 - CONCLUSION: Stable brain appearance Estrada Snow MD Procedures Endotracheal Intubation and extubation Tracheostomy PEG tube placement. Other Results Laboratory Tests Test 08/30/16 08/30/16 09/01/16 09/02/16 05:50 18:43 04:49 10:52 Urine Color LIGHT-YELLOW Urine Turbidity CLEAR Urine pH 8.0 Urine Specific Castaner 1.009 Urine Protein 30 mg/dL Urine Glucose (UA) NEG mg/dL Urine Ketones NEG mg/dL Urine Occult Blood TRACE Urine Nitrite NEG Urine Bilirubin NEG Urine Urobilinogen LESS THAN 2.0 MG/DL Urine Leukocyte Esterase SMALL Urine RBC 7 /hpf Urine WBC 5 /hpf Urine Squamous Epithelial <1 /hpf Cells Urine Bacteria RARE /hpf Urine Mucus FEW /lpf Microscopic Urinalysis Comment CATH-CULTURE IND Blood Type O POSITIVE Antibody Screen NEGATIVE Crossmatch Leukocyte-Reduced Red Blood Cells Blood Bank Comment White Blood Count 17.1 TH/MM3 Red Blood Count 3.65 MIL/MM3 Hemoglobin 10.5 GM/DL Hematocrit 32.6 % Mean Corpuscular Volume 89.5 FL Mean Corpuscular Hemoglobin 28.9 PG Mean Corpuscular Hemoglobin 32.3 % Concent Red Cell Distribution Width 15.0 % Platelet Count 204 TH/MM3 Mean Platelet Volume 10.4 FL Sodium Level 148 MEQ/L Potassium Level 4.5 MEQ/L Chloride Level 112 MEQ/L Carbon Dioxide Level 27.4 MEQ/L Anion Gap 9 MEQ/L Blood Urea Nitrogen 78 MG/DL Creatinine 3.83 MG/DL Estimat Glomerular Filtration 15 ML/MIN Rate Random Glucose 191 MG/DL Calcium Level 9.4 MG/DL Phosphorus Level 3.2 MG/DL Albumin 2.8 GM/DL Objective Remarks GENERAL: NAD, A&Ox0. HEAD: Normocephalic. Angioedema tongue present NECK: Supple, trachea midline. No lymphadenopathy. Tracheostomy present EYES: No scleral icterus. No injection or drainage. CARDIOVASCULAR: Regular rate and rhythm without murmurs, gallops, or rubs. RESPIRATORY: Breath sounds equal bilaterally. No accessory muscle use. GASTROINTESTINAL: Abdomen soft, non-tender, nondistended. PEG tube in place. MUSCULOSKELETAL: No cyanosis, or edema. SKIN: Warm and dry. NEURO: Alert, looks oriented and moves all four extremities. Medications and IVs Current Medications Medications (Trade) Dose Ordered Sig/Jones Route Start Time Stop Time Status Last Admin (NS Flush) 2 ml UNSCH PRN .XX 08/12/16 18:30 (NS Flush) 2 ml BID .XX 08/12/16 21:00 09/01/16 21:00 (Tylenol) 650 mg Q6H PRN PO 08/12/16 18:30 08/26/16 10:25 Miscellaneous Information 1 Q361D XX 08/12/16 18:30 (Chlorhexidine 2% Cloth) 3 pack Taper DAILY@04 TOP 08/13/16 04:00 08/09/17 03:59 09/02/16 04:00 (Chlorhexidine 2% Cloth) 3 pack UNSCH PRN TOP 08/12/16 18:30 (Adele-Colace) 1 tab BID PO 08/12/16 21:00 09/02/16 08:35 (Milk Of Magnesia Liq) 30 ml Q12H PRN PO 08/12/16 18:30 08/23/16 09:14 (Senokot) 17.2 mg Q12H PRN PO 08/12/16 18:30 08/23/16 05:10 (Dulcolax Supp) 10 mg DAILY PRN RECTAL 08/12/16 18:30 08/23/16 09:14 (Lactulose Liq) 30 ml DAILY PRN PO 08/12/16 18:30 08/23/16 09:14 (Apresoline Inj) 20 mg Q4H PRN IV PUSH 08/12/16 20:30 08/28/16 10:30 (Trandate Inj) 10 mg Q4H PRN IV PUSH 08/12/16 20:30 08/28/16 15:58 (Apresoline) 100 mg Q8HR PO 08/16/16 07:30 09/02/16 13:37 (D50w (Vial) Inj) 50 ml UNSCH PRN IV 08/17/16 09:15 08/23/16 06:38 (Glucagon Inj) 1 mg UNSCH PRN OTHER 08/17/16 09:15 (Procardia) 10 mg Q6HR PO 08/19/16 12:00 09/02/16 11:32 Terbutaline Sulfate 1 mg 1 mg UNSCH PRN SQ 08/19/16 07:00 (Rocephin Inj/NS Inj) 100 ml @ 200 mls/hr Q24H IV 08/22/16 11:00 09/02/16 11:29 (Benadryl Inj) 50 mg Q6H IV 08/23/16 05:00 09/02/16 11:32 (Pepcid Inj) 10 mg Q12HR IV PUSH 08/23/16 21:00 09/02/16 08:35 (Heparin Inj) 5,000 units Q8HR SQ 08/24/16 14:00 09/02/16 13:40 (Catapres) 0.4 mg Q8HR PO 08/26/16 14:00 09/02/16 13:37 (Lopressor) 25 mg Q8HR PO 08/26/16 08:00 09/02/16 13:37 (Levemir Inj) 20 units Q12HR SQ 08/26/16 09:00 09/02/16 08:37 (Dilaudid Pf Inj) 0.5 mg Q4H PRN IV PUSH 08/28/16 08:15 09/02/16 13:40 (Catapres-Tts 0.3 Mg Patch.7d) 1 patch Q7D T-DERMAL 08/28/16 13:00 08/28/16 13:14 Miscellaneous Information 1 Q7D T-DERMAL 09/04/16 13:00 Water 300 ml 300 ml Q4H G-TUBE 08/28/16 16:00 09/02/16 11:30 (Sodium Chloride 23.4% Inj/Sterile Water For Inj) 1,009.625 ml @ 50 mls/hr [id number] IV 09/02/16 11:00 09/02/16 11:00 A/P Assessment and Plan 56-year-old female admitted secondary to basal ganglia hemorrhage related to hypertension. Status post lisinopril reaction with angioedema. Also admitted related to hypertensive urgency. Angioedema is improving slowly. Acute blood loss discovered last afternoon. Patient transfused 3 units of packed red blood cells 08/30/16. Anemia stabilized right now. Follow CBC. Acute blood loss anemia Follow CBC Status post 3 units of packed red blood cells transfused 08/30/16. Occult stool blood testing pending Status post basal ganglia hemorrhage Persistent respiratory failure Improving Encephalopathy. Acute hemorrhagic basal ganglia stroke Acute encephalopathy Maintain blood pressure control with systolic goal less than 160 mmHg Follow neurological status Neurosurgeon following Physical therapy Occupational therapy Out of bed to chair as tolerated Acute hypoxic respiratory failure Hypercarbic respiratory failure Tracheostomy present Continue oxygenation via tracheostomy Tracheostomy care Pulmonary toilet Wean FiO2 as tolerated When necessary and scheduled nebulized treatments Pulmonology following Angioedema Secondary to lisinopril Avoid Rodger inhibitors Continue Decadron Continue Pepcid Continue Benadryl Follow for improvement Hypertension Recent hypertensive urgency Continue metoprolol Continue hydralazine Continue clonidine Continue nifedipine Avoid lisinopril as patient has allergy to this. Acute on chronic renal failure CKD stage IV worsening may need Hemodialysis. Continue Diuril Monitor I's and O's Maintain Chacon catheter Nephrology specialist following. Hypernatremia recommended 1/4 NS 50 ml per hour, free water 300 ml every four hours. Acute protein calorie malnutrition Continue tube feedings Follow albumin MSSA pneumonia Treatment completed Escherichia coli UTI Rocephin 1 GM Daily Diabetes mellitus type 2 Continue Levemir 21 units every 12 hours Sliding scale insulin next line follow blood sugars continue tube feedings adjusted Insulin DVT prophylaxis SCDs and subcutaneous heparin GI prophylaxis Pepcid Lines: Peripheral IV Chacon catheter Discharge Planning Not yet cleared for discharge. Rick Barba MD Sep 02, 2016 14:34 GI prophylaxis Pepcid Lines: Peripheral IV Chacon catheter Discharge Planning Not yet cleared for discharge. Rick Barba MD Sep 02, 2016 14:34
--- NOTE | 2016-09-02 16:41 | HHI.PR ---
Subjective Remarks ass: IC BLEED S/P TRACH NO DISTRESS Objective Vital Signs Date Time Temp Pulse Resp B/P Pulse Ox O2 Delivery O2 Flow Rate FiO2 09/02/16 14:00 84 09/02/16 12:00 91 09/02/16 12:00 98.9 92 22 148/84 100 09/02/16 10:00 89 09/02/16 08:45 100 T-piece 28 09/02/16 08:00 99.6 82 18 150/76 100 09/02/16 08:00 85 09/02/16 06:00 84 09/02/16 04:00 98.7 77 14 113/68 100 09/02/16 04:00 77 09/02/16 02:00 72 09/02/16 00:00 98.9 96 20 136/80 100 09/02/16 00:00 96 09/01/16 22:00 80 09/01/16 20:36 100 T-piece 28 09/01/16 20:00 98.4 84 18 141/52 100 09/01/16 20:00 88 09/01/16 18:00 74 I/O 09/01/16 09/01/16 09/01/16 09/02/16 09/02/16 09/02/16 07:00 15:00 23:00 07:00 15:00 23:00 Intake Total 957 ml 1172 ml 660 ml 960 ml 416 ml Output Total 950 ml 1350 ml 1100 ml 900 ml 450 ml Balance 7 ml -178 ml -440 ml 60 ml -34 ml IV Total 70 ml 173 ml Tube Feeding 287 ml 372 ml 360 ml 360 ml 243 ml Tube Irrigant 200 ml Other 600 ml 600 ml 300 ml 600 ml Output Urine Total 950 ml 1350 ml 1100 ml 900 ml 450 ml # Bowel Movements 0 1 0 0 Result Diagram: 09/01/16 0449 09/02/16 1052 Procedures Endotracheal Intubation and extubation Tracheostomy PEG tube placement. Objective Remarks GENERAL: SKIN: Warm and dry. HEAD: Atraumatic. Normocephalic. tongue protruding EYES: Pupils equal and round. No scleral icterus. No injection or drainage. ENT: No nasal bleeding or discharge. Mucous membranes pink and moist. NECK: Trachea midline. trach in place . CARDIOVASCULAR: Regular rate and rhythm. RESPIRATORY: No accessory muscle use. Clear to auscultation. Breath sounds equal bilaterally. GASTROINTESTINAL: Abdomen soft, non-tender, nondistended. Hepatic and splenic margins not palpable. MUSCULOSKELETAL: Extremities without clubbing, cyanosis, or edema. No obvious deformities. NEUROLOGICAL: Awake and alert. No obvious cranial nerve deficits. Motor grossly within normal limits. Five out of 5 muscle strength in the arms and legs. Normal speech. PSYCHIATRIC: Appropriate mood and affect; insight and judgment normal. Assessment and Plan Assessment and Plan ass respiratory failure S/P IC bleed S/P Tracheostomy plan: O2 as needed pulmonary toilet WILL KEEP TRACH IN [place]DELIA TONGUE IS OBSTRUCTING AIRWAY Bianca Valenzuela MD Sep 02, 2016 16:41
[2016-09-03] VITALS (13 sets, daily range): BP systolic 143–158; BP diastolic 73–86; PULSE 62–86; RESP 9–20; TEMP 98.2–99.2; O2SAT 100
[2016-09-03] MEDS: NIFEdipine 10 MG CAP PO SCH ×4 (00:12→16:41)
[2016-09-03] MEDS: CHLORHEXIDINE GLUCONATE 2 % 1 PACK (2 CLOTHS) TOP SCH (04:00)
[2016-09-03] MEDS: FREE WATER G-TUBE SCH ×5 (04:18→20:24)
[2016-09-03] MEDS: diphenhydrAMINE HCL 50 MG/ML VIAL IV SCH ×3 (04:19→16:41)
[2016-09-03] MEDS: hydrALAZINE HCL 100 MG TAB PO SCH ×3 (06:00→22:43)
[2016-09-03] MEDS: METOPROLOL TARTRATE 25 MG TAB PO SCH ×3 (06:00→22:44)
[2016-09-03] MEDS: cloNIDine HCL 0.2 MG TAB PO SCH ×3 (06:00→22:44)
[2016-09-03] MEDS: HEPARIN SODIUM - SQ 10,000 UNITS/ML VIAL SQ SCH ×3 (06:01→22:44)
[2016-09-03] MEDS: SODIUM CHLORIDE 23.4% INJ 38.5 MEQ in WATER STERILE FOR INJ 1,000 ML IV SCH (06:03)
[2016-09-03] MEDS: INSULIN ASPART SUPPLEMENTAL SCALE SQ SCH ×4 (06:21→20:46)
[2016-09-03] MEDS: SODIUM CHLORIDE 0.9% FLUSH 10 ML FLUSH SCH ×2 (08:30→20:25)
[2016-09-03] MEDS: DOCUSATE SODIUM 50 MG/SENNA 8.6 MG TAB PO SCH ×2 (08:30→20:26)
[2016-09-03] MEDS: FAMOTIDINE 20 MG/2 ML VIAL IV PUSH SCH ×2 (08:30→20:27)
[2016-09-03] MEDS: INSULIN DETEMIR 100 UNITS/ML VIAL SQ SCH ×2 (08:31→20:58)
--- NOTE | 2016-09-03 08:52 | HHI.PR ---
Subjective Remarks This is a pleasant 56 y/o Female who came to ER with right sided weakness, non verbal, CT brain with left basal ganglia hemorrhagic stroke. She was intubated by an ER attending for an airway protection admitted to ICU. on 08/20/16 had fever and Leukocytosis, started on Zosyn blood cultures performed, Nephrology specialist following, with diagnosis of Acute Kidney Injury on chronic kidney Disease stage IV, May need Dialysis, Hypernatremia on free water intake, Hypertensive Emergency BP stable, to avoid RODGER inhibitors due to worsening renal function and Angioedema. 09/03: Stable seen in her bedroom, no changes to anterior assessment, continue with increased volume of her tongue, will need to continue Solu-Medrol, no nausea, vomit or diarrhea. Objective Vital Signs Date Time Temp Pulse Resp B/P Pulse Ox O2 Delivery O2 Flow Rate FiO2 09/03/16 06:00 80 09/03/16 04:00 81 09/03/16 04:00 98.5 81 17 158/85 100 09/03/16 02:29 86 09/03/16 00:00 98.7 84 19 158/86 100 09/03/16 00:00 76 09/02/16 22:00 77 09/02/16 20:00 89 09/02/16 20:00 98.7 84 19 158/86 100 09/02/16 18:00 75 09/02/16 16:00 79 09/02/16 16:00 98.5 85 22 117/71 100 09/02/16 14:00 84 09/02/16 12:00 91 09/02/16 12:00 98.9 92 22 148/84 100 09/02/16 10:00 89 I/O 09/02/16 09/02/16 09/02/16 09/03/16 09/03/16 09/03/16 07:00 15:00 23:00 07:00 15:00 23:00 Intake Total 960 ml 416 ml 1122 ml 829 ml Output Total 900 ml 450 ml 900 ml 775 ml Balance 60 ml -34 ml 222 ml 54 ml IV Total 173 ml 475 ml 304 ml Tube Feeding 360 ml 243 ml 347 ml 225 ml Other 600 ml 300 ml 300 ml Output Urine Total 900 ml 450 ml 900 ml 775 ml # Bowel Movements 0 0 0 0 Result Diagram: 09/01/16 0449 09/02/16 1052 Imaging Last Impressions Chest X-Ray 08/25/16 0600 Signed Impressions: Service Date/Time: Thursday, August 25, 2016 03:00 - CONCLUSION: No acute cardiopulmonary disease. Khadijah Jacob MD Renal Ultrasound 08/18/16 0000 Signed Impressions: Service Date/Time: Thursday, August 18, 2016 20:22 - CONCLUSION: 1. Small echogenic kidneys typical of chronic parenchymal disease. No evidence of obstructive uropathy or other acute renal abnormality. 2. Chacon in the bladder, grossly unremarkable. 3. Apparent small retroperitoneal free fluid, etiology uncertain. Estrada Dunham MD Abdomen X-Ray 08/16/16 0000 Signed Impressions: Service Date/Time: Tuesday, August 16, 2016 08:05 - CONCLUSION: Is a chest tube tip in stomach. Side port in the region of the gastroesophageal junction. Jhony Kirkpatrick MD Head CT 08/13/16 0800 Signed Impressions: Service Date/Time: Saturday, August 13, 2016 04:37 - CONCLUSION: Stable brain appearance Estrada Snow MD Procedures Endotracheal Intubation and extubation Tracheostomy PEG tube placement. Other Results Laboratory Tests Test 08/30/16 08/30/16 09/01/16 09/02/16 05:50 18:43 04:49 10:52 Urine Color LIGHT-YELLOW Urine Turbidity CLEAR Urine pH 8.0 Urine Specific Zahl 1.009 Urine Protein 30 mg/dL Urine Glucose (UA) NEG mg/dL Urine Ketones NEG mg/dL Urine Occult Blood TRACE Urine Nitrite NEG Urine Bilirubin NEG Urine Urobilinogen LESS THAN 2.0 MG/DL Urine Leukocyte Esterase SMALL Urine RBC 7 /hpf Urine WBC 5 /hpf Urine Squamous Epithelial <1 /hpf Cells Urine Bacteria RARE /hpf Urine Mucus FEW /lpf Microscopic Urinalysis Comment CATH-CULTURE IND Blood Type O POSITIVE Antibody Screen NEGATIVE Crossmatch Leukocyte-Reduced Red Blood Cells Blood Bank Comment White Blood Count 17.1 TH/MM3 Red Blood Count 3.65 MIL/MM3 Hemoglobin 10.5 GM/DL Hematocrit 32.6 % Mean Corpuscular Volume 89.5 FL Mean Corpuscular Hemoglobin 28.9 PG Mean Corpuscular Hemoglobin 32.3 % Concent Red Cell Distribution Width 15.0 % Platelet Count 204 TH/MM3 Mean Platelet Volume 10.4 FL Sodium Level 148 MEQ/L Potassium Level 4.5 MEQ/L Chloride Level 112 MEQ/L Carbon Dioxide Level 27.4 MEQ/L Anion Gap 9 MEQ/L Blood Urea Nitrogen 78 MG/DL Creatinine 3.83 MG/DL Estimat Glomerular Filtration 15 ML/MIN Rate Random Glucose 191 MG/DL Calcium Level 9.4 MG/DL Phosphorus Level 3.2 MG/DL Albumin 2.8 GM/DL Objective Remarks GENERAL: NAD, A&Ox0. HEAD: Normocephalic. Angioedema tongue present NECK: Supple, trachea midline. No lymphadenopathy. Tracheostomy present EYES: No scleral icterus. No injection or drainage. CARDIOVASCULAR: Regular rate and rhythm without murmurs, gallops, or rubs. RESPIRATORY: Breath sounds equal bilaterally. No accessory muscle use. GASTROINTESTINAL: Abdomen soft, non-tender, nondistended. PEG tube in place. MUSCULOSKELETAL: No cyanosis, or edema. SKIN: Warm and dry. NEURO: Alert, looks oriented and moves all four extremities. Medications and IVs Current Medications Medications (Trade) Dose Ordered Sig/Jones Route Start Time Stop Time Status Last Admin (NS Flush) 2 ml UNSCH PRN .XX 08/12/16 18:30 (NS Flush) 2 ml BID .XX 08/12/16 21:00 09/03/16 08:30 (Tylenol) 650 mg Q6H PRN PO 08/12/16 18:30 08/26/16 10:25 Miscellaneous Information 1 Q361D XX 08/12/16 18:30 (Chlorhexidine 2% Cloth) 3 pack Taper DAILY@04 TOP 08/13/16 04:00 08/09/17 03:59 09/03/16 04:00 (Chlorhexidine 2% Cloth) 3 pack UNSCH PRN TOP 08/12/16 18:30 (Adele-Colace) 1 tab BID PO 08/12/16 21:00 09/03/16 08:30 (Milk Of Magnesia Liq) 30 ml Q12H PRN PO 08/12/16 18:30 08/23/16 09:14 (Senokot) 17.2 mg Q12H PRN PO 08/12/16 18:30 08/23/16 05:10 (Dulcolax Supp) 10 mg DAILY PRN RECTAL 08/12/16 18:30 08/23/16 09:14 (Lactulose Liq) 30 ml DAILY PRN PO 08/12/16 18:30 08/23/16 09:14 (Apresoline Inj) 20 mg Q4H PRN IV PUSH 08/12/16 20:30 08/28/16 10:30 (Trandate Inj) 10 mg Q4H PRN IV PUSH 08/12/16 20:30 08/28/16 15:58 (Apresoline) 100 mg Q8HR PO 08/16/16 07:30 09/03/16 06:00 (D50w (Vial) Inj) 50 ml UNSCH PRN IV 08/17/16 09:15 08/23/16 06:38 (Glucagon Inj) 1 mg UNSCH PRN OTHER 08/17/16 09:15 (Procardia) 10 mg Q6HR PO 08/19/16 12:00 09/03/16 06:00 Terbutaline Sulfate 1 mg 1 mg UNSCH PRN SQ 08/19/16 07:00 (Rocephin Inj/NS Inj) 100 ml @ 200 mls/hr Q24H IV 08/22/16 11:00 09/02/16 11:29 (Benadryl Inj) 50 mg Q6H IV 08/23/16 05:00 09/03/16 04:19 (Pepcid Inj) 10 mg Q12HR IV PUSH 08/23/16 21:00 09/03/16 08:30 (Heparin Inj) 5,000 units Q8HR SQ 08/24/16 14:00 09/03/16 06:01 (Catapres) 0.4 mg Q8HR PO 08/26/16 14:00 09/03/16 06:00 (Lopressor) 25 mg Q8HR PO 08/26/16 08:00 09/03/16 06:00 (Dilaudid Pf Inj) 0.5 mg Q4H PRN IV PUSH 08/28/16 08:15 09/02/16 13:40 (Catapres-Tts 0.3 Mg Patch.7d) 1 patch Q7D T-DERMAL 08/28/16 13:00 08/28/16 13:14 Miscellaneous Information 1 Q7D T-DERMAL 09/04/16 13:00 Water 300 ml 300 ml Q4H G-TUBE 08/28/16 16:00 09/03/16 08:00 (Sodium Chloride 23.4% Inj/Sterile Water For Inj) 1,009.625 ml @ 50 mls/hr [id number] IV 09/02/16 11:00 09/03/16 06:03 (Levemir Inj) 22 units Q12HR SQ 09/02/16 21:00 09/03/16 08:31 A/P Assessment and Plan 56-year-old female admitted secondary to basal ganglia hemorrhage related to hypertension. Status post lisinopril reaction with angioedema. Also admitted related to hypertensive urgency. Angioedema is improving slowly. Acute blood loss discovered last afternoon. Patient transfused 3 units of packed red blood cells 08/30/16. Anemia stabilized right now. Follow CBC. Acute blood loss anemia Follow CBC Status post 3 units of packed red blood cells transfused 08/30/16. Occult stool blood testing pending Status post basal ganglia hemorrhage Persistent respiratory failure Improving Encephalopathy. Acute hemorrhagic basal ganglia stroke Acute encephalopathy Maintain blood pressure control with systolic goal less than 160 mmHg Follow neurological status Neurosurgeon following Physical therapy Occupational therapy Out of bed to chair as tolerated Acute hypoxic respiratory failure Hypercarbic respiratory failure Tracheostomy present Continue oxygenation via tracheostomy Tracheostomy care Pulmonary toilet Wean FiO2 as tolerated When necessary and scheduled nebulized treatments Pulmonology following Severe Angioedema Secondary to lisinopril Avoid Rodger inhibitors Prednisone 40 mg daily. Continue Pepcid Continue Benadryl Follow for improvement Hypertension Recent hypertensive urgency Continue metoprolol Continue hydralazine Continue clonidine Continue nifedipine Avoid lisinopril as patient has allergy to this. Acute on chronic renal failure CKD stage IV worsening may need Hemodialysis. Continue Diuril Monitor I's and O's Maintain Chacon catheter Nephrology specialist following. Hypernatremia recommended 1/4 NS 50 ml per hour, free water 300 ml every four hours. Acute protein calorie malnutrition Continue tube feedings Follow albumin MSSA pneumonia Treatment completed Escherichia coli UTI Rocephin 1 GM Daily Diabetes mellitus type 2 Continue Levemir 22 units every 12 hours Sliding scale insulin next line follow blood sugars continue tube feedings adjusted Insulin DVT prophylaxis SCDs and subcutaneous heparin GI prophylaxis Pepcid Lines: Peripheral IV Chacon catheter Discharge Planning Not yet cleared for discharge. Rick Barba MD Sep 03, 2016 08:52
[2016-09-03 10:22] LABS: BICARBONATE 27.3 MEQ/L (21.0-32.0); POTASSIUM 4.8 MEQ/L (3.5-5.1)
--- NOTE | 2016-09-03 11:15 | HHI.NPPN ---
Subjective General Problems: Edema Renal Failure: Acute Interval History Up in chair. Oxygen delivery via T piece . She does not have edema. Excellent urine output. (Miguelina Walsh) Review of Systems General General Remarks unable to obtain (Miguelina Walsh) Ears, Nose, & Throat ENT Remarks tongue swelling (Miguelina Walsh) Objective Data Data 09/02/16 09/03/16 19:00 07:00 Intake Total 416 ml 1951 ml Output Total 450 ml 1675 ml Balance -34 ml 276 ml IV Total 173 ml 779 ml Tube Feeding 243 ml 572 ml Other 600 ml Output Urine Total 450 ml 1675 ml # Bowel Movements 0 0 Vital Signs Date Time Temp Pulse Resp B/P Pulse Ox O2 Delivery O2 Flow Rate FiO2 09/03/16 10:26 100 T-piece 5.00 28 09/03/16 10:00 82 09/03/16 08:00 80 09/03/16 08:00 98.6 80 12 147/73 100 09/03/16 06:00 80 09/03/16 04:00 81 09/03/16 04:00 98.5 81 17 158/85 100 09/03/16 02:29 86 09/03/16 00:00 98.7 84 19 158/86 100 09/03/16 00:00 76 09/02/16 22:00 77 09/02/16 20:00 89 09/02/16 20:00 98.7 84 19 158/86 100 09/02/16 18:00 75 09/02/16 16:00 79 09/02/16 16:00 98.5 85 22 117/71 100 09/02/16 14:00 84 09/02/16 12:00 91 09/02/16 12:00 98.9 92 22 148/84 100 (Miguelina Walsh) -: 09/01/16 0449 09/03/16 0947 Imaging Last Impressions Chest X-Ray 08/25/16 0600 Signed Impressions: Service Date/Time: Thursday, August 25, 2016 03:00 - CONCLUSION: No acute cardiopulmonary disease. Khadijah Jacob MD Renal Ultrasound 08/18/16 0000 Signed Impressions: Service Date/Time: Thursday, August 18, 2016 20:22 - CONCLUSION: 1. Small echogenic kidneys typical of chronic parenchymal disease. No evidence of obstructive uropathy or other acute renal abnormality. 2. Chacon in the bladder, grossly unremarkable. 3. Apparent small retroperitoneal free fluid, etiology uncertain. Estrada Dunham MD Abdomen X-Ray 08/16/16 0000 Signed Impressions: Service Date/Time: Tuesday, August 16, 2016 08:05 - CONCLUSION: Is a chest tube tip in stomach. Side port in the region of the gastroesophageal junction. Jhony Kirkpatrick MD Head CT 08/13/16 0800 Signed Impressions: Service Date/Time: Saturday, August 13, 2016 04:37 - CONCLUSION: Stable brain appearance Estrada Snow MD Tubes & Lines: Chacon (Jillian,Miguelina B. INDUCTION MACHINE SETTER) Physical Exam General Appearance: Well Developed, No Acute Distress, Obese (Jillian,Miguelina B. INDUCTION MACHINE SETTER) Eyes Eye Exam: Pupils Equal (Jillian,Miguelina B. INDUCTION MACHINE SETTER) Throat Throat Exam: Oral Mucosa [place] & Moist Throat Remarks angioedema of tongue present, +trach (Jillian,Miguelina B. INDUCTION MACHINE SETTER) Pulmonary Resp Exam: Breath Sounds Equal, Crackles (Jillian,Miguelina B. INDUCTION MACHINE SETTER) Cardiology CV Exam: Regular, Normal Sinus Rhythm, Good Perfusion (Jillian,Miguelina B. INDUCTION MACHINE SETTER) Gastrointestinal/Abdomen GI Exam: Non-Tender, Bowel Sounds Present GI Remarks obese + PEG (Jillian,Miguelina B. INDUCTION MACHINE SETTER) Musculoskeletal MS Exam: Joints Intact, Normal Tone, Unable to Ambulate (Jillian,Miguelina B. INDUCTION MACHINE SETTER) Integumentary Skin Exam: Clear, Warm, Dry, Intact (Jillian,Miguelina B. INDUCTION MACHINE SETTER) Extremeties Extremities Exam: Pedal Pulses Palpable, Trace Edema (Jillian,Miguelina B. INDUCTION MACHINE SETTER) Neurologic Neuro Exam: Awake, Obtunded Neuro Remarks right side flaccid (Jillian,Miguelina B. INDUCTION MACHINE SETTER) Assessment/Plan Discussed Condition With: Daughter Assessment Summary: CHRIS/Acute Renal Failure, Acute Tubular Necrosis, Fluid/ Volume Overload, Proteinuria, Hypertension, CKD Stage IV Electrolyte Assessment: Hypernatremia Problem List: (1) Acute worsening of stage 4 chronic kidney disease Plan: Creatinine slightly better, she is in stage 4 CKD she is nonoliguric, excellent urine output at this time continue to monitor, she had CKD prior to admission, undiagnosed. This may be her new baseline renal function, and she may need dialysis soon but it is no imminent continue to monitor renal function monitor urine output, if that slows she may then require dialysis Avoid nephrotoxic agents. (2) Hypernatremia Plan: continue 1/4 NS @ 50cc, Continue free water, 300 Q4h Use Diuril if needed for diuresis. (3) Hypertensive emergency Plan: BP is stable continue oral medications avoid NEGRITO due to CHRIS and angioedema (4) Thalamic hemorrhage Plan: due to hypertensive crisis neurosurgery following, non surgical management (5) Respiratory failure Plan: s/p trach with T piece appreciate respiratory therapy assistance (6) Anemia, unspecified Plan: Hb stable, given PRBC over the past week (Miguelina Walsh) Plan patient was seen and examined. Non oliguric. No immediate need for dialysis. ( Jamal Salazar MD) Problem Qualifiers (1) Respiratory failure: Qualified Code: J96.00 - Acute respiratory failure, unspecified whether with hypoxia or hypercapnia Miguelina Walsh Sep 03, 2016 11:15 Jamal Salazar MD Sep 03, 2016 18:37
[2016-09-03] MEDS: cefTRIAXone INJ 1,000 MG in SODIUM CHLORIDE 0.9% INJ 100 ML IV SCH (12:01)
--- NOTE | 2016-09-03 15:54 | HHI.PR ---
Subjective Remarks ass: IC BLEED S/P TRACH NO DISTRESS Objective Vital Signs Date Time Temp Pulse Resp B/P Pulse Ox O2 Delivery O2 Flow Rate FiO2 09/03/16 14:00 80 09/03/16 12:00 62 09/03/16 12:00 99.2 82 20 143/78 100 09/03/16 10:26 100 T-piece 5.00 28 09/03/16 10:00 82 09/03/16 08:00 80 09/03/16 08:00 98.6 80 12 147/73 100 09/03/16 06:00 80 09/03/16 04:00 81 09/03/16 04:00 98.5 81 17 158/85 100 09/03/16 02:29 86 09/03/16 00:00 98.7 84 19 158/86 100 09/03/16 00:00 76 09/02/16 22:00 77 09/02/16 20:00 89 09/02/16 20:00 98.7 84 19 158/86 100 09/02/16 18:00 75 09/02/16 16:00 79 09/02/16 16:00 98.5 85 22 117/71 100 I/O 09/02/16 09/02/16 09/02/16 09/03/16 09/03/16 09/03/16 07:00 15:00 23:00 07:00 15:00 23:00 Intake Total 960 ml 416 ml 1122 ml 829 ml 1325 ml Output Total 900 ml 450 ml 900 ml 775 ml 1000 ml Balance 60 ml -34 ml 222 ml 54 ml 325 ml IV Total 173 ml 475 ml 304 ml 374 ml Tube Feeding 360 ml 243 ml 347 ml 225 ml 351 ml Tube Irrigant 600 ml Other 600 ml 300 ml 300 ml Output Urine Total 900 ml 450 ml 900 ml 775 ml 1000 ml # Bowel Movements 0 0 0 0 Result Diagram: 09/01/16 0449 09/03/16 0947 Procedures Endotracheal Intubation and extubation Tracheostomy PEG tube placement. Objective Remarks GENERAL: SKIN: Warm and dry. HEAD: Atraumatic. Normocephalic. tongue protruding EYES: Pupils equal and round. No scleral icterus. No injection or drainage. ENT: No nasal bleeding or discharge. Mucous membranes pink and moist. NECK: Trachea midline. trach in place . CARDIOVASCULAR: Regular rate and rhythm. RESPIRATORY: No accessory muscle use. Clear to auscultation. Breath sounds equal bilaterally. GASTROINTESTINAL: Abdomen soft, non-tender, nondistended. Hepatic and splenic margins not palpable. MUSCULOSKELETAL: Extremities without clubbing, cyanosis, or edema. No obvious deformities. NEUROLOGICAL: Awake and alert. No obvious cranial nerve deficits. Motor grossly within normal limits. Five out of 5 muscle strength in the arms and legs. Normal speech. PSYCHIATRIC: Appropriate mood and affect; insight and judgment normal. Assessment and Plan Assessment and Plan ass respiratory failure S/P IC bleed S/P Tracheostomy plan: O2 as needed pulmonary toilet WILL KEEP TRACH IN [place] TONGUE IS OBSTRUCTING AIRWAY Bianca Valenzuela MD Sep 03, 2016 15:54
[2016-09-03] MEDS: HYDROmorphone HCL PF 1 MG/ML VIAL IV PUSH PRN (16:41)
[2016-09-03] MEDS ORDERED: methylPREDNISolone SOD SUCC 40 MG/1 ML VIAL IV PUSH SCH (17:00)
[2016-09-03] MEDS: predniSONE 5 MG/5 ML CUP PO SCH (20:24)
[2016-09-04] VITALS (15 sets, daily range): BP systolic 98–166; BP diastolic 67–90; PULSE 70–99; RESP 18–38; TEMP 98–99; O2SAT 99–100
[2016-09-04] MEDS: diphenhydrAMINE HCL 50 MG/ML VIAL IV SCH ×5 (00:05→22:11)
[2016-09-04] MEDS: FREE WATER G-TUBE SCH ×6 (00:06→20:00)
[2016-09-04] MEDS: NIFEdipine 10 MG CAP PO SCH ×4 (00:06→17:46)
[2016-09-04] MEDS: SODIUM CHLORIDE 23.4% INJ 38.5 MEQ in WATER STERILE FOR INJ 1,000 ML IV SCH (03:24)
[2016-09-04] MEDS: CHLORHEXIDINE GLUCONATE 2 % 1 PACK (2 CLOTHS) TOP SCH (04:07)
[2016-09-04 04:19] LABS: AUTOMATED NEUTROPHIL # 15.8 TH/MM3 (1.8-7.7); BASOPHIL # 0.1 TH/MM3 (0-0.2); BASOPHIL % 0.6 % (0.0-2.0); EOSINOPHIL # 0.1 TH/MM3 (0-0.4); EOSINOPHIL % 0.6 % (0.0-4.0); HEMATOCRIT 30.2 % (35.0-46.0); HEMO FLAGS DIFF FINAL; LYMPH % 5.4 % (9.0-44.0); LYMPHOCYTE # 0.9 TH/MM3 (1.0-4.8); MEAN CELL VOLUME 89.9 FL (80.0-100.0); MEAN CORPUSCULAR HEMOGLOBIN 28.6 PG (27.0-34.0); MEAN CORPUSCULAR HGB CONC 31.8 % (32.0-36.0); MONO % 0.9 % (0.0-8.0); NEUT % 92.5 % (16.0-70.0); PLATELET COUNT 209 TH/MM3 (150-450); RED BLOOD COUNT 3.36 MIL/MM3 (4.00-5.30); WHITE BLOOD COUNT 17.1 TH/MM3 (4.0-11.0)
[2016-09-04 04:38] LABS: BICARBONATE 20.4 MEQ/L (21.0-32.0)
[2016-09-04 04:40] LABS: POTASSIUM 6.9 MEQ/L (3.5-5.1)
[2016-09-04] MEDS: hydrALAZINE HCL 100 MG TAB PO SCH ×3 (05:19→21:39)
[2016-09-04] MEDS: METOPROLOL TARTRATE 25 MG TAB PO SCH ×3 (05:19→21:40)
[2016-09-04] MEDS: cloNIDine HCL 0.2 MG TAB PO SCH ×3 (05:19→21:40)
[2016-09-04] MEDS: HEPARIN SODIUM - SQ 10,000 UNITS/ML VIAL SQ SCH ×3 (05:19→21:39)
[2016-09-04] MEDS ORDERED: SODIUM POLYSTYRENE SULFONATE SUSP 15 GM/60 ML CUP PEG ONE (06:00)
[2016-09-04] MEDS ORDERED: SODIUM POLYSTYRENE SULFONATE SUSP 15 GM/60 ML CUP PO ONE (06:00)
[2016-09-04] MEDS ORDERED: CALCIUM GLUCONATE 10% 1 GM/10 ML VIAL IV ONE (06:00)
[2016-09-04] MEDS ORDERED: INSULIN HUMAN REGULAR 1,000 UNITS/10 ML VIAL IV PUSH ONE (06:00)
[2016-09-04] MEDS ORDERED: DEXTROSE 50% IN WATER 50 ML VIAL(D50) IV PUSH ONE (06:00)
[2016-09-04] MEDS: INSULIN ASPART SUPPLEMENTAL SCALE SQ SCH ×5 (06:24→22:08)
[2016-09-04] MEDS: LABETALOL HCL 100 MG/20 ML VIAL IV PUSH PRN (06:25)
[2016-09-04] MEDS ORDERED: CALCIUM GLUCONATE INJ 1 GM in SODIUM CHLORIDE 0.9% INJ 100 ML IV ONE (07:00)
[2016-09-04] MEDS: DOCUSATE SODIUM 50 MG/SENNA 8.6 MG TAB PO SCH ×2 (08:01→21:23)
[2016-09-04] MEDS: predniSONE 5 MG/5 ML CUP PO SCH (08:01)
[2016-09-04] MEDS: FAMOTIDINE 20 MG/2 ML VIAL IV PUSH SCH ×2 (08:01→21:23)
[2016-09-04] MEDS: SODIUM CHLORIDE 0.9% FLUSH 10 ML FLUSH SCH ×2 (09:00→21:23)
[2016-09-04] MEDS: INSULIN DETEMIR 100 UNITS/ML VIAL SQ SCH ×2 (09:00→21:22)
[2016-09-04] MEDS: hydrALAZINE HCL 20 MG/ML VIAL IV PUSH PRN (09:00)
[2016-09-04] MEDS: cefTRIAXone INJ 1,000 MG in SODIUM CHLORIDE 0.9% INJ 100 ML IV SCH (10:41)
[2016-09-04] MEDS: cloNIDine HCL 0.3 MG/24 HR PATCH T-DERMAL SCH (12:27)
[2016-09-04] MEDS: REMOVE OLD CATAPRES (CLONIDINE) PATCH T-DERMAL SCH (13:00)
--- NOTE | 2016-09-04 13:35 | HHI.PR ---
Subjective Remarks This is a pleasant 56 y/o Female who came to ER with right sided weakness, non verbal, CT brain with left basal ganglia hemorrhagic stroke. She was intubated by an ER attending for an airway protection admitted to ICU. on 08/20/16 had fever and Leukocytosis, started on Zosyn blood cultures performed, Nephrology specialist following, with diagnosis of Acute Kidney Injury on chronic kidney Disease stage IV, May need Dialysis, Hypernatremia on free water intake, Hypertensive Emergency BP stable, to avoid RODGER inhibitors due to worsening renal function and Angioedema. 09/03: Increased volume of her tongue, will need to continue Steroids 09/04: Seen in her bedroom in the presence of her Mr. Cliff Richey , she is improving tongue swelling from yesterday will continue same dose of Prednisone, even her blood sugar is increased will try to titrate down as soon as possible, her Insulin Levemir was Increased and also her Blood sugar checks frequency, no nausea, vomit or diarrhea, working with Physical therapy. Objective Vital Signs Date Time Temp Pulse Resp B/P Pulse Ox O2 Delivery O2 Flow Rate FiO2 09/04/16 12:00 97 09/04/16 10:00 88 09/04/16 08:00 82 09/04/16 08:00 98.0 88 27 157/90 100 09/04/16 07:47 100 T-piece 28 09/04/16 07:00 100 T-Piece 28 09/04/16 06:00 83 09/04/16 04:00 80 09/04/16 04:00 98.8 80 27 160/83 100 09/04/16 02:00 70 09/04/16 01:00 100 5.00 28 09/04/16 00:00 98.7 73 21 120/67 100 09/04/16 00:00 73 09/03/16 22:00 76 09/03/16 20:00 75 09/03/16 20:00 98.5 75 9 143/74 100 09/03/16 19:00 100 T-Piece 6.00 28 09/03/16 18:00 77 09/03/16 17:11 12 09/03/16 16:00 98.2 75 12 143/82 100 09/03/16 16:00 75 09/03/16 14:00 80 I/O 6/09/03/16 09/03/16 09/04/16 09/04/16 09/04/16 07:00 15:00 23:00 07:00 15:00 23:00 Intake Total 829 ml 1325 ml 1025 ml 1346 ml Output Total 775 ml 1000 ml 575 ml 900 ml Balance 54 ml 325 ml 450 ml 446 ml IV Total 304 ml 374 ml 377 ml 248 ml Tube Feeding 225 ml 351 ml 288 ml 298 ml Tube Irrigant 600 ml 60 ml 200 ml Other 300 ml 300 ml 600 ml Output Urine Total 775 ml 1000 ml 575 ml 900 ml # Bowel Movements 0 0 0 Result Diagram: 09/04/16 0330 09/04/16 1028 Imaging Last Impressions Chest X-Ray 08/25/16 0600 Signed Impressions: Service Date/Time: Thursday, August 25, 2016 03:00 - CONCLUSION: No acute cardiopulmonary disease. Khadijah Jacob MD Renal Ultrasound 08/18/16 0000 Signed Impressions: Service Date/Time: Thursday, August 18, 2016 20:22 - CONCLUSION: 1. Small echogenic kidneys typical of chronic parenchymal disease. No evidence of obstructive uropathy or other acute renal abnormality. 2. Ch[place] in the bladder, grossly unremarkable. 3. Apparent small retroperitoneal free fluid, etiology uncertain. Estrada Dunham MD Abdomen X-Ray 08/16/16 0000 Signed Impressions: Service Date/Time: Tuesday, August 16, 2016 08:05 - CONCLUSION: Is a chest tube tip in stomach. Side port in the region of the gastroesophageal junction. Jhony Kirkpatrick MD Head CT 08/13/16 0800 Signed Impressions: Service Date/Time: Saturday, August 13, 2016 04:37 - CONCLUSION: Stable brain appearance Estrada Snow MD Procedures Endotracheal Intubation and extubation Tracheostomy PEG tube placement. Other Results Laboratory Tests Test 08/30/16 09/03/16 09/04/16 09/04/16 18:43 09:47 03:30 10:28 Blood Type O POSITIVE Crossmatch Leukocyte-Reduced Red Blood Cells Blood Bank Comment Phosphorus Level 3.7 MG/DL Albumin 2.8 GM/DL White Blood Count 17.1 TH/MM3 Red Blood Count 3.36 MIL/MM3 Hemoglobin 9.6 GM/DL Hematocrit 30.2 % Mean Corpuscular Volume 89.9 FL Mean Corpuscular Hemoglobin 28.6 PG Mean Corpuscular Hemoglobin 31.8 % Concent Red Cell Distribution Width 15.0 % Platelet Count 209 TH/MM3 Mean Platelet Volume 11.4 FL Neutrophils (%) (Auto) 92.5 % Lymphocytes (%) (Auto) 5.4 % Monocytes (%) (Auto) 0.9 % Eosinophils (%) (Auto) 0.6 % Basophils (%) (Auto) 0.6 % Neutrophils # (Auto) 15.8 TH/MM3 Lymphocytes # (Auto) 0.9 TH/MM3 Monocytes # (Auto) 0.1 TH/MM3 Eosinophils # (Auto) 0.1 TH/MM3 Basophils # (Auto) 0.1 TH/MM3 CBC Comment DIFF FINAL Differential Comment Hematology Comments Sodium Level 138 MEQ/L Chloride Level 108 MEQ/L Carbon Dioxide Level 20.4 MEQ/L Anion Gap 10 MEQ/L Blood Urea Nitrogen 79 MG/DL Creatinine 3.67 MG/DL Estimat Glomerular Filtration 15 ML/MIN Rate Random Glucose 280 MG/DL Calcium Level 8.8 MG/DL Potassium Level 5.4 MEQ/L Objective Remarks GENERAL: NAD, A&Ox0. HEAD: Normocephalic. Angioedema tongue present Improving. NECK: Supple, trachea midline. No lymphadenopathy. Tracheostomy present EYES: No scleral icterus. No injection or drainage. CARDIOVASCULAR: Regular rate and rhythm without murmurs, gallops, or rubs. RESPIRATORY: Breath sounds equal bilaterally. No accessory muscle use. GASTROINTESTINAL: Abdomen soft, non-tender, nondistended. PEG tube in place. MUSCULOSKELETAL: No cyanosis, or edema. SKIN: Warm and dry. NEURO: Alert, looks oriented and moves all four extremities. Medications and IVs Current Medications Medications (Trade) Dose Ordered Sig/Jones Route Start Time Stop Time Status Last Admin (NS Flush) 2 ml UNSCH PRN .XX 08/12/16 18:30 (NS Flush) 2 ml BID .XX 08/12/16 21:00 09/04/16 09:00 (Tylenol) 650 mg Q6H PRN PO 08/12/16 18:30 08/26/16 10:25 Miscellaneous Information 1 Q361D XX 08/12/16 18:30 (Chlorhexidine 2% Cloth) 3 pack Taper DAILY@04 TOP 08/13/16 04:00 08/09/17 03:59 09/04/16 04:07 (Chlorhexidine 2% Cloth) 3 pack UNSCH PRN TOP 08/12/16 18:30 (Adele-Colace) 1 tab BID PO 08/12/16 21:00 09/04/16 08:01 (Milk Of Magnesia Liq) 30 ml Q12H PRN PO 08/12/16 18:30 08/23/16 09:14 (Senokot) 17.2 mg Q12H PRN PO 08/12/16 18:30 08/23/16 05:10 (Dulcolax Supp) 10 mg DAILY PRN RECTAL 08/12/16 18:30 08/23/16 09:14 (Lactulose Liq) 30 ml DAILY PRN PO 08/12/16 18:30 08/23/16 09:14 (Apresoline Inj) 20 mg Q4H PRN IV PUSH 08/12/16 20:30 09/04/16 09:00 (Trandate Inj) 10 mg Q4H PRN IV PUSH 08/12/16 20:30 09/04/16 06:25 (Apresoline) 100 mg Q8HR PO 08/16/16 07:30 09/04/16 13:30 (D50w (Vial) Inj) 50 ml UNSCH PRN IV 08/17/16 09:15 08/23/16 06:38 (Glucagon Inj) 1 mg UNSCH PRN OTHER 08/17/16 09:15 (Procardia) 10 mg Q6HR PO 08/19/16 12:00 09/04/16 12:26 Terbutaline Sulfate 1 mg 1 mg UNSCH PRN SQ 08/19/16 07:00 (Rocephin Inj/NS Inj) 100 ml @ 200 mls/hr Q24H IV 08/22/16 11:00 09/04/16 10:41 (Benadryl Inj) 50 mg Q6H IV 08/23/16 05:00 09/04/16 10:41 (Pepcid Inj) 10 mg Q12HR IV PUSH 08/23/16 21:00 09/04/16 08:01 (Heparin Inj) 5,000 units Q8HR SQ 08/24/16 14:00 09/04/16 13:30 (Catapres) 0.4 mg Q8HR PO 08/26/16 14:00 09/04/16 13:30 (Lopressor) 25 mg Q8HR PO 08/26/16 08:00 09/04/16 13:30 (Dilaudid Pf Inj) 0.5 mg Q4H PRN IV PUSH 08/28/16 08:15 09/03/16 16:41 (Catapres-Tts 0.3 Mg Patch.7d) 1 patch Q7D T-DERMAL 08/28/16 13:00 09/04/16 12:27 Miscellaneous Information 1 Q7D T-DERMAL 09/04/16 13:00 09/04/16 13:00 Water 300 ml 300 ml Q4H G-TUBE 08/28/16 16:00 09/04/16 12:27 (Sodium Chloride 23.4% Inj/Sterile Water For Inj) 1,009.625 ml @ 50 mls/hr [id number] IV 09/02/16 11:00 09/03/16 06:03 (Levemir Inj) 22 units Q12HR SQ 09/02/16 21:00 09/04/16 09:00 (predniSONE LIQ) 40 mg DAILY PO 09/03/16 18:00 09/04/16 08:01 A/P Assessment and Plan 56-year-old female admitted secondary to basal ganglia hemorrhage related to hypertension. Status post lisinopril reaction with angioedema. Also admitted related to hypertensive urgency. Angioedema is improving slowly. Acute blood loss discovered last afternoon. Patient transfused 3 units of packed red blood cells 08/30/16. Anemia stabilized right now. Follow CBC. Acute blood loss anemia Hemoglobin 9.6 Status post 3 units of packed red blood cells transfused 08/30/16. Occult stool blood testing pending Status post basal ganglia hemorrhage Persistent respiratory failure Improving Encephalopathy. Acute hemorrhagic basal ganglia stroke Acute encephalopathy Maintain blood pressure control with systolic goal less than 160 mmHg Follow neurological status Neurosurgeon following Physical therapy Occupational therapy Out of bed to chair as tolerated Acute hypoxic respiratory failure Hypercarbic respiratory failure Tracheostomy present Continue oxygenation via tracheostomy Tracheostomy care Pulmonary toilet Wean FiO2 as tolerated When necessary and scheduled nebulized treatments Pulmonology following Severe Angioedema Secondary to lisinopril Avoid Rodger inhibitors Prednisone 40 mg daily. Continue Pepcid Continue Benadryl Follow for improvement Hypertension Recent hypertensive urgency Continue metoprolol Continue hydralazine Continue clonidine Continue nifedipine Avoid lisinopril as patient has allergy to this. Acute on chronic renal failure CKD stage IV worsening may need Hemodialysis. Continue Diuril Monitor I's and O's Maintain Chacon catheter Nephrology specialist following. Hypernatremia/Hyperkalemia free water 300 ml every four hours. Acute protein calorie malnutrition Continue tube feedings Follow albumin MSSA pneumonia Treatment completed Escherichia coli UTI Treated with Rocephin 1 GM Daily Diabetes mellitus type 2 Continue Levemir 26 units every 12 hours Sliding scale insulin next line follow blood sugars every 2 hours for now continue tube feedings adjusted Insulin DVT prophylaxis SCDs and subcutaneous heparin GI prophylaxis Pepcid Lines: Peripheral IV Chacon catheter Continue titration of Steroids, Blood sugar checks every 2 hours Leukocytosis secondary to Steroid use. improving condition slowly. Discussed with Patient and her Mr. Cliff Richey in the room, all questions answered to the best of my abilities. Discharge Planning Not yet cleared for discharge. Rick Barba MD Sep 04, 2016 13:35
--- NOTE | 2016-09-04 14:22 | HHI.NPPN ---
Subjective General Problems: Edema Renal Failure: Acute Review of Systems General General Remarks unable to obtain Ears, Nose, & Throat ENT Remarks tongue swelling Objective Data Data 09/03/16 09/04/16 19:00 07:00 Intake Total 1325 ml 2371 ml Output Total 1000 ml 1475 ml Balance 325 ml 896 ml IV Total 374 ml 625 ml Tube Feeding 351 ml 586 ml Tube Irrigant 600 ml 260 ml Other 900 ml Output Urine Total 1000 ml 1475 ml # Bowel Movements 0 Vital Signs Date Time Temp Pulse Resp B/P Pulse Ox O2 Delivery O2 Flow Rate FiO2 09/04/16 12:00 97 09/04/16 10:00 88 09/04/16 08:00 82 09/04/16 08:00 98.0 88 27 157/90 100 09/04/16 07:47 100 T-piece 28 09/04/16 07:00 100 T-Piece 28 09/04/16 06:00 83 09/04/16 04:00 80 09/04/16 04:00 98.8 80 27 160/83 100 09/04/16 02:00 70 09/04/16 01:00 100 5.00 28 09/04/16 00:00 98.7 73 21 120/67 100 09/04/16 00:00 73 09/03/16 22:00 76 09/03/16 20:00 75 09/03/16 20:00 98.5 75 9 143/74 100 09/03/16 19:00 100 T-Piece 6.00 28 09/03/16 18:00 77 09/03/16 17:11 12 09/03/16 16:00 98.2 75 12 143/82 100 09/03/16 16:00 75 -: 09/04/16 0330 09/04/16 1028 Tubes & Lines: Chacon Physical Exam General Appearance: Well Developed, No Acute Distress, Obese Eyes Eye Exam: Pupils Equal Throat Throat Exam: Oral Mucosa [place] & Moist Pulmonary Resp Exam: Breath Sounds Equal, Crackles, Rhonchi Cardiology CV Exam: Regular, Normal Sinus Rhythm, Good Perfusion Gastrointestinal/Abdomen GI Exam: Non-Tender, Bowel Sounds Present Musculoskeletal MS Exam: Joints Intact, Normal Tone, Unable to Ambulate Integumentary Skin Exam: Clear, Warm, Dry, Intact Extremeties Extremities Exam: Pedal Pulses Palpable, Trace Edema Neurologic Neuro Exam: Awake, Obtunded Assessment/Plan Discussed Condition With: Daughter Assessment Summary: CHRIS/Acute Renal Failure, Acute Tubular Necrosis, Fluid/ Volume Overload, Proteinuria, Hypertension, CKD Stage IV Electrolyte Assessment: Hypernatremia Problem List: (1) Acute worsening of stage 4 chronic kidney disease Plan: Creatinine still at CKD 4 Stage Hyperkalemia was treated K 5.4 slight hemolysis Lasix started, stop IVF has CHF order CXR follow BMP (2) Hypernatremia Plan: stop 1/4 NS @ 50cc, Continue free water, 300 Q4h Use Lasix (3) Hypertensive emergency Plan: BP is stable continue oral medications avoid NEGRITO due to CHRIS and angioedema (4) Thalamic hemorrhage Plan: due to hypertensive crisis neurosurgery following, non surgical management (5) Respiratory failure Plan: s/p trach with T piece appreciate respiratory therapy assistance (6) Anemia, unspecified Plan: Hb stable, given PRBC over the past week Problem Qualifiers (1) Respiratory failure: Qualified Code: J96.00 - Acute respiratory failure, unspecified whether with hypoxia or hypercapnia Bettie Pepper MD Sep 04, 2016 14:22
[2016-09-04] MEDS: FUROSEMIDE 40 MG/4 ML VIAL IV PUSH SCH (14:45)
--- NOTE | 2016-09-04 15:48 | RADRPT ---
EXAM DATE/TIME: 09/04/2016 15:08 [facility] COMPARISON: CHEST SINGLE AP, August 25, 2016, 13:11. INDICATIONS : Short of breath. MEDICAL HISTORY : Hypertension. Hypercholesterolemia. Diabetes mellitus type II. cva SURGICAL HISTORY : None. ENCOUNTER: Initial ACUITY: 3 weeks PAIN SCORE: Non-responsive. LOCATION: Bilateral chest FINDINGS: Portable AP view of the chest demonstrates a normal-sized cardiac silhouette. Tracheostomy is present . Lungs are underinflated. No effusion, consolidation, or pneumothorax is identified. Bones and soft tissues demonstrate no acute finding. CONCLUSION: Underinflated examination. No acute cardiopulmonary abnormality is identified. Estrada Busch MD on September 04, 2016 at 15:44 Board Certified Radiologist. This report was verified electronically.
[2016-09-05] VITALS (9 sets, daily range): BP systolic 138–179; BP diastolic 73–98; PULSE 73–93; RESP 20–24; TEMP 97.2–98.8; O2SAT 95–100
[2016-09-05] MEDS: NIFEdipine 10 MG CAP PO SCH ×4 (00:24→17:41)
[2016-09-05] MEDS: INSULIN ASPART SUPPLEMENTAL SCALE SQ SCH ×5 (00:26→12:00)
[2016-09-05] MEDS: CHLORHEXIDINE GLUCONATE 2 % 1 PACK (2 CLOTHS) TOP SCH (04:00)
[2016-09-05] MEDS: FREE WATER G-TUBE SCH ×6 (04:00→20:00)
[2016-09-05] MEDS: hydrALAZINE HCL 100 MG TAB PO SCH ×3 (05:22→22:28)
[2016-09-05] MEDS: HEPARIN SODIUM - SQ 10,000 UNITS/ML VIAL SQ SCH ×3 (05:22→22:29)
[2016-09-05] MEDS: cloNIDine HCL 0.2 MG TAB PO SCH ×3 (05:22→22:29)
[2016-09-05] MEDS: diphenhydrAMINE HCL 50 MG/ML VIAL IV SCH ×4 (05:22→22:29)
[2016-09-05] MEDS: METOPROLOL TARTRATE 25 MG TAB PO SCH ×3 (05:23→22:31)
--- NOTE | 2016-09-05 08:55 | HHI.PR ---
Subjective Remarks This is a pleasant 56 y/o Female who came to ER with right sided weakness, non verbal, CT brain with left basal ganglia hemorrhagic stroke. She was intubated by an ER attending for an airway protection admitted to ICU. on 08/20/16 had fever and Leukocytosis, started on Zosyn blood cultures performed, Nephrology specialist following, with diagnosis of Acute Kidney Injury on chronic kidney Disease stage IV, May need Dialysis, Hypernatremia on free water intake, Hypertensive Emergency BP stable, to avoid RODGER inhibitors due to worsening renal function and Angioedema. 09/03: Increased volume of her tongue, will need to continue Steroids 09/04: Seen in her bedroom in the presence of her Mr. Cliff Richey , she is improving tongue swelling from yesterday will continue same dose of Prednisone, even her blood sugar is increased will try to titrate down as soon as possible, her Insulin Levemir was Increased and also her Blood sugar checks frequency, working with Physical therapy. 09/05: Seen in her bedroom, in the presence of nurse Mr. Pineda she is improving her tongue edema, discussed for more than 15 minutes with her Mr. Cliff Richey, he wants a letter for his Insurance will evaluate the kind of document he needs with [employer] in am tomorrow. no nausea, vomit or diarrhea, adjusted Insulin management. Objective Vital Signs Date Time Temp Pulse Resp B/P Pulse Ox O2 Delivery O2 Flow Rate FiO2 09/05/16 08:30 97.2 73 24 139/83 98 09/05/16 06:01 95 T-piece 6.00 28 09/05/16 04:00 97.5 89 22 159/81 99 09/05/16 02:10 97.6 80 22 159/84 100 09/05/16 00:00 98.5 83 20 138/73 100 09/05/16 00:00 93 09/04/16 22:00 93 09/04/16 20:00 99.0 85 26 98/77 100 09/04/16 20:00 93 09/04/16 19:46 99 T-piece 28 09/04/16 19:00 100 T-Piece 28 09/04/16 18:00 93 09/04/16 16:00 98.7 92 38 152/81 100 09/04/16 16:00 92 09/04/16 14:00 93 09/04/16 12:00 99.0 99 18 166/85 100 09/04/16 12:00 97 09/04/16 10:00 88 I/O 09/04/16 09/04/16 09/04/16 09/05/16 09/05/16 09/05/16 07:00 15:00 23:00 07:00 15:00 23:00 Intake Total 1346 ml 1268 ml 866 ml Output Total 900 ml 950 ml 1200 ml Balance 446 ml 318 ml -334 ml IV Total 248 ml 541 ml 83 ml Tube Feeding 298 ml 87 ml 183 ml Tube Irrigant 200 ml 40 ml Other 600 ml 600 ml 600 ml Output Urine Total 900 ml 950 ml 1200 ml # Bowel Movements 0 0 0 Result Diagram: 09/04/16 0330 09/04/16 1028 Imaging Last Impressions Chest X-Ray 09/04/16 0000 Signed Impressions: Service Date/Time: August 15:08 - CONCLUSION: Underinflated examination. No acute cardiopulmonary abnormality is identified. Estrada Busch MD Renal Ultrasound 08/18/16 0000 Signed Impressions: Service Date/Time: Thursday, August 18, 2016 20:22 - CONCLUSION: 1. Small echogenic kidneys typical of chronic parenchymal disease. No evidence of obstructive uropathy or other acute renal abnormality. 2. Chacon in the bladder, grossly unremarkable. 3. Apparent small retroperitoneal free fluid, etiology uncertain. Estrada Dunham MD Abdomen X-Ray 08/16/16 0000 Signed Impressions: Service Date/Time: Tuesday, August 16, 2016 08:05 - CONCLUSION: Is a chest tube tip in stomach. Side port in the region of the gastroesophageal junction. Jhoyn Kirkpatrick MD Head CT 08/13/16 0800 Signed Impressions: Service Date/Time: Saturday, August 13, 2016 04:37 - CONCLUSION: Stable brain appearance Estrada Snow MD Procedures Endotracheal Intubation and extubation Tracheostomy PEG tube placement. Other Results Laboratory Tests Test 08/30/16 09/03/16 09/04/16 09/04/16 18:43 09:47 03:30 10:28 Blood Type O POSITIVE Crossmatch Leukocyte-Reduced Red Blood Cells Blood Bank Comment Phosphorus Level 3.7 MG/DL Albumin 2.8 GM/DL White Blood Count 17.1 TH/MM3 Red Blood Count 3.36 MIL/MM3 Hemoglobin 9.6 GM/DL Hematocrit 30.2 % Mean Corpuscular Volume 89.9 FL Mean Corpuscular Hemoglobin 28.6 PG Mean Corpuscular Hemoglobin 31.8 % Concent Red Cell Distribution Width 15.0 % Platelet Count 209 TH/MM3 Mean Platelet Volume 11.4 FL Neutrophils (%) (Auto) 92.5 % Lymphocytes (%) (Auto) 5.4 % Monocytes (%) (Auto) 0.9 % Eosinophils (%) (Auto) 0.6 % Basophils (%) (Auto) 0.6 % Neutrophils # (Auto) 15.8 TH/MM3 Lymphocytes # (Auto) 0.9 TH/MM3 Monocytes # (Auto) 0.1 TH/MM3 Eosinophils # (Auto) 0.1 TH/MM3 Basophils # (Auto) 0.1 TH/MM3 CBC Comment DIFF FINAL Differential Comment Hematology Comments Sodium Level 138 MEQ/L Chloride Level 108 MEQ/L Carbon Dioxide Level 20.4 MEQ/L Anion Gap 10 MEQ/L Blood Urea Nitrogen 79 MG/DL Creatinine 3.67 MG/DL Estimat Glomerular Filtration 15 ML/MIN Rate Random Glucose 280 MG/DL Calcium Level 8.8 MG/DL Potassium Level 5.4 MEQ/L Objective Remarks GENERAL: NAD, A&Ox0. HEAD: Normocephalic. Angioedema tongue present Improving. NECK: Supple, trachea midline. No lymphadenopathy. Tracheostomy present EYES: No scleral icterus. No injection or drainage. CARDIOVASCULAR: Regular rate and rhythm without murmurs, gallops, or rubs. RESPIRATORY: Breath sounds equal bilaterally. No accessory muscle use. GASTROINTESTINAL: Abdomen soft, non-tender, nondistended. PEG tube in place. MUSCULOSKELETAL: No cyanosis, or edema. SKIN: Warm and dry. NEURO: Alert, looks oriented and moves all four extremities. Medications and IVs Current Medications Medications (Trade) Dose Ordered Sig/Jones Route Start Time Stop Time Status Last Admin (NS Flush) 2 ml UNSCH PRN .XX 08/12/16 18:30 (NS Flush) 2 ml BID .XX 08/12/16 21:00 09/04/16 21:23 (Tylenol) 650 mg Q6H PRN PO 08/12/16 18:30 08/26/16 10:25 Miscellaneous Information 1 Q361D XX 08/12/16 18:30 (Chlorhexidine 2% Cloth) 3 pack Taper DAILY@04 TOP 08/13/16 04:00 08/09/17 03:59 09/04/16 04:07 (Chlorhexidine 2% Cloth) 3 pack UNSCH PRN TOP 08/12/16 18:30 (Adele-Colace) 1 tab BID PO 08/12/16 21:00 09/04/16 21:23 (Milk Of Magnesia Liq) 30 ml Q12H PRN PO 08/12/16 18:30 08/23/16 09:14 (Senokot) 17.2 mg Q12H PRN PO 08/12/16 18:30 08/23/16 05:10 (Dulcolax Supp) 10 mg DAILY PRN RECTAL 08/12/16 18:30 08/23/16 09:14 (Lactulose Liq) 30 ml DAILY PRN PO 08/12/16 18:30 08/23/16 09:14 (Apresoline Inj) 20 mg Q4H PRN IV PUSH 08/12/16 20:30 09/04/16 09:00 (Apresoline) 100 mg Q8HR PO 08/16/16 07:30 09/05/16 05:22 (D50w (Vial) Inj) 50 ml UNSCH PRN IV 08/17/16 09:15 08/23/16 06:38 (Glucagon Inj) 1 mg UNSCH PRN OTHER 08/17/16 09:15 (Procardia) 10 mg Q6HR PO 08/19/16 12:00 09/05/16 05:21 Terbutaline Sulfate 1 mg 1 mg UNSCH PRN SQ 08/19/16 07:00 (Rocephin Inj/NS Inj) 100 ml @ 200 mls/hr Q24H IV 08/22/16 11:00 09/04/16 10:41 (Benadryl Inj) 50 mg Q6H IV 08/23/16 05:00 09/05/16 05:22 (Pepcid Inj) 10 mg Q12HR IV PUSH 08/23/16 21:00 09/04/16 21:23 (Heparin Inj) 5,000 units Q8HR SQ 08/24/16 14:00 09/05/16 05:22 (Catapres) 0.4 mg Q8HR PO 08/26/16 14:00 09/05/16 05:22 (Lopressor) 25 mg Q8HR PO 08/26/16 08:00 09/05/16 05:23 (Dilaudid Pf Inj) 0.5 mg Q4H PRN IV PUSH 08/28/16 08:15 09/03/16 16:41 (Catapres-Tts 0.3 Mg Patch.7d) 1 patch Q7D T-DERMAL 08/28/16 13:00 09/04/16 12:27 Miscellaneous Information 1 Q7D T-DERMAL 09/04/16 13:00 09/04/16 13:00 (Free Water) 300 ml Q4H G-TUBE 08/28/16 16:00 09/05/16 04:00 (Lasix Inj) 40 mg DAILY IV PUSH 09/04/16 14:30 09/04/16 14:45 (Levemir Inj) 26 units Q12HR SQ 09/04/16 21:00 09/04/16 21:22 (NovoLOG SUPPLEMENTAL SCALE) 1 Q2HR SQ 09/04/16 20:00 09/05/16 00:26 (predniSONE LIQ) 40 mg DAILY PEG 09/05/16 09:00 UNV A/P Assessment and Plan 56-year-old female admitted secondary to basal ganglia hemorrhage related to hypertension. Status post lisinopril reaction with angioedema. Also admitted related to hypertensive urgency. Angioedema is improving slowly. Acute blood loss discovered last afternoon. Patient transfused 3 units of packed red blood cells 08/30/16. Anemia stabilized right now. Follow CBC. Acute blood loss anemia Hemoglobin 9.6 Status post 3 units of packed red blood cells transfused 08/30/16. Occult stool blood testing pending Status post basal ganglia hemorrhage Persistent respiratory failure Improving Encephalopathy. Acute hemorrhagic basal ganglia stroke Acute encephalopathy Maintain blood pressure control with systolic goal less than 160 mmHg Follow neurological status Neurosurgeon following Physical therapy Occupational therapy Out of bed to chair as tolerated Acute hypoxic respiratory failure Hypercarbic respiratory failure Tracheostomy present Continue oxygenation via tracheostomy Tracheostomy care Pulmonary toilet Wean FiO2 as tolerated When necessary and scheduled nebulized treatments Pulmonology following Severe Angioedema Secondary to lisinopril Avoid Rodger inhibitors Prednisone 40 mg daily. Continue Pepcid Continue Benadryl Follow for improvement Hypertension Recent hypertensive urgency Continue metoprolol Continue hydralazine Continue clonidine Continue nifedipine Avoid lisinopril as patient has allergy to this. Acute on chronic renal failure CKD stage IV worsening may need Hemodialysis. Continue Diuril Monitor I's and O's Maintain Chacon catheter Decreased Lasix Dose by Nephrology specialist. Hypernatremia/Hyperkalemia Improved. free water 300 ml every four hours. Acute protein calorie malnutrition Continue tube feedings Follow albumin MSSA pneumonia Treatment completed Escherichia coli UTI Treated with Rocephin 1 GM Daily Diabetes mellitus type 2 Continue Levemir 26 units every 12 hours Sliding scale insulin next line follow blood sugars every 2 hours for now continue tube feedings adjusted Insulin DVT prophylaxis SCDs and subcutaneous heparin GI prophylaxis Pepcid Lines: Peripheral IV Chacon catheter Continue titration of Steroids, Blood sugar checks every 2 hours Leukocytosis secondary to Steroid use. improving condition slowly. Discussed with Patient and her Mr. Cliff Richey in the room, all questions answered to the best of my abilities. Discharge Planning Not yet cleared for discharge. Rick Barba MD Sep 05, 2016 08:55
[2016-09-05] MEDS: FUROSEMIDE 40 MG/4 ML VIAL IV PUSH SCH (08:57)
[2016-09-05] MEDS: FAMOTIDINE 20 MG/2 ML VIAL IV PUSH SCH ×2 (08:57→22:39)
[2016-09-05] MEDS: DOCUSATE SODIUM 50 MG/SENNA 8.6 MG TAB PO SCH ×2 (08:58→22:28)
[2016-09-05] MEDS: INSULIN DETEMIR 100 UNITS/ML VIAL SQ SCH ×2 (08:58→22:30)
[2016-09-05] MEDS: SODIUM CHLORIDE 0.9% FLUSH 10 ML FLUSH SCH ×2 (09:11→22:28)
[2016-09-05] MEDS: predniSONE 5 MG/5 ML CUP PEG SCH (09:55)
[2016-09-05 11:10] LABS: BICARBONATE 26.2 MEQ/L (21.0-32.0); POTASSIUM 3.6 MEQ/L (3.5-5.1)
[2016-09-05] MEDS: cefTRIAXone INJ 1,000 MG in SODIUM CHLORIDE 0.9% INJ 100 ML IV SCH (12:44)
--- NOTE | 2016-09-05 13:06 | HHI.NPPN ---
Subjective General Problems: Edema Renal Failure: Acute Review of Systems General General Remarks unable to obtain Ears, Nose, & Throat ENT Remarks tongue swelling Objective Data Data 09/04/16 09/05/16 19:00 07:00 Intake Total 1268 ml 866 ml Output Total 950 ml 1200 ml Balance 318 ml -334 ml IV Total 541 ml 83 ml Tube Feeding 87 ml 183 ml Tube Irrigant 40 ml Other 600 ml 600 ml Output Urine Total 950 ml 1200 ml # Bowel Movements 0 0 Vital Signs Date Time Temp Pulse Resp B/P Pulse Ox O2 Delivery O2 Flow Rate FiO2 09/05/16 12:24 97.3 75 24 152/95 100 09/05/16 08:30 97.2 73 24 139/83 98 09/05/16 06:01 95 T-piece 6.00 28 09/05/16 04:00 97.5 89 22 159/81 99 09/05/16 02:10 97.6 80 22 159/84 100 09/05/16 00:00 98.5 83 20 138/73 100 09/05/16 00:00 93 09/04/16 22:00 93 09/04/16 20:00 99.0 85 26 98/77 100 09/04/16 20:00 93 09/04/16 19:46 99 T-piece 28 09/04/16 19:00 100 T-Piece 28 09/04/16 18:00 93 09/04/16 16:00 98.7 92 38 152/81 100 09/04/16 16:00 92 09/04/16 14:00 93 -: 09/04/16 0330 09/05/16 0833 Tubes & Lines: Chacon Physical Exam General Appearance: Well Developed, No Acute Distress, Obese Eyes Eye Exam: Pupils Equal Throat Throat Exam: Oral Mucosa Liebenthal & Moist Pulmonary Resp Exam: Breath Sounds Equal, Crackles, Rhonchi Cardiology CV Exam: Regular, Normal Sinus Rhythm, Good Perfusion Gastrointestinal/Abdomen GI Exam: Non-Tender, Bowel Sounds Present Musculoskeletal MS Exam: Joints Intact, Normal Tone, Unable to Ambulate Integumentary Skin Exam: Clear, Warm, Dry, Intact Extremeties Extremities Exam: Pedal Pulses Palpable, Trace Edema Neurologic Neuro Exam: Awake, Obtunded Assessment/Plan Discussed Condition With: Daughter Assessment Summary: CHRIS/Acute Renal Failure, Acute Tubular Necrosis, Fluid/ Volume Overload, Proteinuria, Hypertension, CKD Stage IV Electrolyte Assessment: Hypernatremia Problem List: (1) Acute worsening of stage 4 chronic kidney disease Plan: Creatinine still at CKD 4 Stage Hyperkalemia was treated good response to Lasix may reduce dose to 20 mg CXR underinflation lungs follow BMP (2) Hypernatremia Plan: Continue free water, 300 Q4h Use Lasix (3) Hypertensive emergency Plan: BP is stable continue oral medications avoid NEGRITO due to CHRIS and angioedema (4) Thalamic hemorrhage Plan: due to hypertensive crisis neurosurgery following, non surgical management (5) Respiratory failure Plan: s/p trach with T piece appreciate respiratory therapy assistance (6) Anemia, unspecified Plan: Hb stable, Problem Qualifiers (1) Respiratory failure: Qualified Code: J96.00 - Acute respiratory failure, unspecified whether with hypoxia or hypercapnia Bettie Pepper MD Sep 05, 2016 13:06
--- NOTE | 2016-09-05 16:56 | HHI.PR ---
Subjective Remarks ass: IC BLEED S/P TRACH NO DISTRESS Objective Vital Signs Date Time Temp Pulse Resp B/P Pulse Ox O2 Delivery O2 Flow Rate FiO2 09/05/16 15:50 98.8 78 24 139/82 99 09/05/16 12:24 97.3 75 24 152/95 100 09/05/16 08:30 97.2 73 24 139/83 98 09/05/16 06:01 95 T-piece 6.00 28 09/05/16 04:00 97.5 89 22 159/81 99 09/05/16 02:10 97.6 80 22 159/84 100 09/05/16 00:00 98.5 83 20 138/73 100 09/05/16 00:00 93 09/04/16 22:00 93 09/04/16 20:00 99.0 85 26 98/77 100 09/04/16 20:00 93 09/04/16 19:46 99 T-piece 28 09/04/16 19:00 100 T-Piece 28 09/04/16 18:00 93 I/O 09/04/16 09/04/16 09/04/16 09/05/16 09/05/16 09/05/16 07:00 15:00 23:00 07:00 15:00 23:00 Intake Total 1346 ml 1268 ml 866 ml Output Total 900 ml 950 ml 1200 ml 1775 ml Balance 446 ml 318 ml -334 ml -1775 ml IV Total 248 ml 541 ml 83 ml Tube Feeding 298 ml 87 ml 183 ml Tube Irrigant 200 ml 40 ml Other 600 ml 600 ml 600 ml Output Urine Total 900 ml 950 ml 1200 ml 1775 ml # Bowel Movements 0 0 0 Result Diagram: 09/04/16 0330 09/05/16 0833 Procedures Endotracheal Intubation and extubation Tracheostomy PEG tube placement. Objective Remarks GENERAL: SKIN: Warm and dry. HEAD: Atraumatic. Normocephalic. tongue protruding EYES: Pupils equal and round. No scleral icterus. No injection or drainage. ENT: No nasal bleeding or discharge. Mucous membranes pink and moist. NECK: Trachea midline. trach in place . CARDIOVASCULAR: Regular rate and rhythm. RESPIRATORY: No accessory muscle use. Clear to auscultation. Breath sounds equal bilaterally. GASTROINTESTINAL: Abdomen soft, non-tender, nondistended. Hepatic and splenic margins not palpable. MUSCULOSKELETAL: Extremities without clubbing, cyanosis, or edema. No obvious deformities. NEUROLOGICAL: Awake and alert. No obvious cranial nerve deficits. Motor grossly within normal limits. Five out of 5 muscle strength in the arms and legs. Normal speech. PSYCHIATRIC: Appropriate mood and affect; insight and judgment normal. Assessment and Plan Assessment and Plan ass respiratory failure S/P IC bleed S/P Tracheostomy plan: O2 as needed pulmonary toilet WILL KEEP TRACH IN [place] TONGUE IS OBSTRUCTING AIRWAY Bianca Valenzuela MD Sep 05, 2016 16:55
--- NOTE | 2016-09-05 18:33 | HHI.NSPN ---
Note Status Status: Progress Note Interval History Interval History Ms. Richey is a 56-year-old female who presents to [place] [facility] with altered mental status and right side weakness. On arrival her blood pressure in chart was 235/115. Her CT scan of the head showed acute left basal ganglia hemorrhagic stroke. She was intubated by an ER attending for an airway protection admitted to ICU. She is sedated. Does not open eyes or follow commands. On Cardene drip for blood pressure control. 08/14: f/u CT Head 08/13 showed stable findings. With angioedema. Intubated and sedated. 08/15: sedation off, not opening eyes or following commands. 08/16: no significant changes to neuro checks overnight, slightly ?opened eyes, appears to be intermittently moving more 08/17: remains intubated, no acute events overnight 08/18: minimal eye opening, not following commands. remains on cardene for bp control, and persistent severe angioedema. 08/19: no changes to neuro status 08/20: opens eyes,withdraws x 4. otherwise no significant neurological changes. for tracheostomy 08/21: for trach and PEG today, nursing reports following commands on right side and tracks. 08/22: mental status improving, more awake, following more commands, s/p trach and PEG 08/26: at bedside reports patient is doing very well, more alert, interactive. angioedema of tongue improving. 08/27: no changes to neuro checks, 08/28. She continues to improve 08/29. remains neurologically stable 09/05. More awake,. Her tongue edema is improving. She has persistent hemiparesis Labs, Micro, & Vital Signs Results Date Time Temp Pulse Resp B/P Pulse Ox O2 Delivery O2 Flow Rate FiO2 09/05/16 15:50 98.8 78 24 139/82 99 09/05/16 12:24 97.3 75 24 152/95 100 09/05/16 08:30 97.2 73 24 139/83 98 09/05/16 06:01 95 T-piece 6.00 28 09/05/16 04:00 97.5 89 22 159/81 99 09/05/16 02:10 97.6 80 22 159/84 100 09/05/16 00:00 98.5 83 20 138/73 100 09/05/16 00:00 93 09/04/16 22:00 93 09/04/16 20:00 99.0 85 26 98/77 100 09/04/16 20:00 93 09/04/16 19:46 99 T-piece 28 09/04/16 19:00 100 T-Piece 28 09/05/16 07:00 Intake Total 2134 ml Output Total 2150 ml Balance -16 ml Constitutional Vital Signs Date Time Temp Pulse Resp B/P Pulse Ox O2 Delivery O2 Flow Rate FiO2 09/05/16 15:50 98.8 78 24 139/82 99 09/05/16 12:24 97.3 75 24 152/95 100 09/05/16 08:30 97.2 73 24 139/83 98 09/05/16 06:01 95 T-piece 6.00 28 09/05/16 04:00 97.5 89 22 159/81 99 09/05/16 02:10 97.6 80 22 159/84 100 09/05/16 00:00 98.5 83 20 138/73 100 09/05/16 00:00 93 09/04/16 22:00 93 09/04/16 20:00 99.0 85 26 98/77 100 09/04/16 20:00 93 09/04/16 19:46 99 T-piece 28 09/04/16 19:00 100 T-Piece 28 09/05/16 07:00 Intake Total 2134 ml Output Total 2150 ml Balance -16 ml Review of Systems/Exam Exam Ms. Richey is awake, alert. Following simple commands. Cranial Nerves: Pupils 2 mm equal, round. angioedema of lip and tongue, which appears improving Neck with tracheostomy on mechanical vent Motor: moving all four extremities, on two point soft restraints Reflexes: plantars silent b/l Cerebellar: cannot assess due to clinical condition Medications Current Medications Current Medications IV Flush (NS Flush) 2 ml UNSCH PRN IV FLUSH FLUSH AFTER USING IV ACCESS; Start 08/12/16 at 17:30; Stop 08/12/16 at 19:50; Status DC Etomidate (Amidate Inj) 20 mg ONCE ONCE IVP ; Start 08/12/16 at 17:45; Stop at 17:46; Status DC Succinylcholine Chloride (Quelicin Inj) 100 mg ONCE ONCE IVP ; Start 08/12/16 at 17:45; Stop 08/12/16 at 17:46; Status DC Sodium Chloride (NS Flush) 2 ml UNSCH PRN IVF FLUSH AFTER USING IV ACCESS; Start 08/12/16 at 17:45; Stop 08/12/16 at 19:50; Status DC Lidocaine HCl (Xylocaine 2% Inj) 100 mg ONCE ONCE IVP ; Start 08/12/16 at 17:45 ; Stop 08/12/16 at 17:46; Status DC Rocuronium [place] 5 mg 5 mg BOLUS ONCE IV ; Start 08/12/16 at 17:45; Stop at 17:46; Status DC Propofol 100 ml @ 0 mls/hr TITRATE IV Last administered on 08/12/16 17:58; Start 08/12/16 at 17:45; Stop 08/12/16 at 19:49; Status DC Nicardipine HCl/ Sodium Chloride (Cardene Inj/NS 250 ml Inj) 260 ml @ 0 mls/hr TITRATE IV Last administered on 08/12/16 20:21; Start 08/12/16 at 17:45; Stop 08/12/16 at 20:36; Status DC Lidocaine HCl (Xylocaine 1% Inj) 30 ml ONCE ONCE INFIL ; Start 08/12/16 at 17: 45; Stop 08/12/16 at 17:46; Status DC Midazolam HCl (Versed Inj) 5 mg STK-MED ONCE .ROUTE ; Start 08/12/16 at 18:13; Stop 08/12/16 at 18:14; Status DC Midazolam HCl 1 mg 1 mg ONCE ONCE IV PUSH Last administered on 08/12/16 18:28 ; Start 08/12/16 at 18:15; Stop 08/12/16 at 18:16; Status DC Midazolam HCl (Versed Inj) 100 ml @ 0 mls/hr CONTINUOUS IV Last administered on 08/14/16 09:45; Start 08/12/16 at 18:15; Stop 08/18/16 at 18:36; Status DC Enalapril Maleate (Vasotec) 20 mg DAILY PO ; Start 08/13/16 at 09:00; Stop 08/13 at 10:57; Status DC Metoprolol Tartrate 50 mg 50 mg BID PO Last administered on 08/18/16 22:01; Start 08/12/16 at 21:00; Stop 08/19/16 at 07:01; Status DC Midazolam HCl 100 ml @ As Directed STK-MED ONCE .ROUTE ; Start 08/12/16 at 18: 20; Stop 08/12/16 at 18:21; Status DC Sodium Chloride (NS 1000 ml Inj) 1,000 ml @ 40 mls/hr Q24H IV Last administered on 08/17/16 06:05; Start 08/12/16 at 19:00; Stop 08/17/16 at 09:10; Status DC Sodium Chloride (NS Flush) 2 ml UNSCH PRN .XX FLUSH AFTER USING IV ACCESS; Start 08/12/16 at 18:30 Sodium Chloride (NS Flush) 2 ml BID .XX Last administered on 09/06/16 09:48; Start 08/12/16 at 21:00 Acetaminophen (Tylenol) 650 mg Q6H PRN PO PAIN 1-10 AND/OR FEVER >101F Last administered on 09/06/16 11:20; Start 08/12/16 at 18:30 Morphine Sulfate (Morphine Inj) 2 mg Q2H PRN IV PAIN SCALE 6 TO 10 Last administered on 08/17/16 11:13; Start 08/12/16 at 18:30; Stop 08/18/16 at 18:37; Status DC Famotidine (Pepcid Inj) 10 mg Q12HR IV PUSH Last administered on 08/22/16 19:46 ; Start 08/12/16 at 21:00; Stop 08/23/16 at 06:40; Status DC Albuterol/ Ipratropium (Duoneb Neb) 1 ampule Q2HR NEB PRN INH WHEEZING; Start 08/12/16 at 18:30 Miscellaneous Information 1 Q361D XX ; Start 08/12/16 at 18:30 Chlorhexidine Gluconate (Chlorhexidine 2% Cloth) Taper DAILY@04 TOP Last administered on 09/04/16 04:07; Start 08/13/16 at 04:00; Stop 08/09/17 at 03:59 Chlorhexidine Gluconate (Chlorhexidine 2% Cloth) 3 pack UNSCH PRN TOP HYGIENIC CARE; Start 08/12/16 at 18:30 Senna/Docusate Sodium (Adele-Colace) 1 tab BID PO Last administered on 09:52; Start 08/12/16 at 21:00 Magnesium Hydroxide (Milk Of Magnidalmis Liq) 30 ml Q12H PRN PO MILD - MODERATE CONSTIPATION Last administered on 08/23/16 09:14; Start 08/12/16 at 18:30 Sennosides (Senokot) 17.2 mg Q12H PRN PO MODERATE - SEVERE CONSTIPATION Last administered on 08/23/16 05:10; Start 08/12/16 at 18:30 Bisacodyl (Dulcolax Supp) 10 mg DAILY PRN RECTAL SEVERE CONSITIPATION Last administered on 08/23/16 09:14; Start 08/12/16 at 18:30 Lactulose 30 ml 30 ml DAILY PRN PO SEVERE CONSITIPATION Last administered on 09:14; Start 08/12/16 at 18:30 Propofol 100 ml @ 0 mls/hr TITRATE IV Last administered on 08/14/16 09:45; Start 08/12/16 at 18:30; Stop 08/18/16 at 18:37; Status DC Vancomycin HCl 1000 mg/Sodium Chloride 250 ml @ 250 mls/hr ONCE STAT IV Last administered on 08/12/16 19:50; Start 08/12/16 at 18:46; Stop 08/12/16 at 19:45 ; Status DC Piperacillin Sod/ Tazobactam Sod (Zosyn 4.5 Gm Premix) 100 ml @ 200 mls/hr ONCE STAT IV Last administered on 08/12/16 21:08; Start 08/12/16 at 18:46; Stop 08/12/16 at 20:34; Status DC Succinylcholine Chloride (Quelicin Inj) 200 mg STK-MED ONCE .ROUTE ; Start 08/12 at 18:48; Stop 08/12/16 at 18:49; Status DC Rocuronium [place] (Zemuron Inj) 50 mg STK-MED ONCE .ROUTE ; Start 08/12/16 at 18:49; Stop 08/12/16 at 18:50; Status DC Etomidate (Amidate Inj) 20 mg STK-MED ONCE .ROUTE ; Start 08/12/16 at 18:50; Stop 08/12/16 at 18:51; Status DC Labetalol HCl (Trandate Inj) 20 mg ONCE ONCE IV PUSH Last administered on 08/12 19:06; Start 08/12/16 at 19:15; Stop 08/12/16 at 19:16; Status DC Hydralazine HCl (Apresoline Inj) 20 mg STK-MED ONCE .ROUTE ; Start 08/12/16 at 19:32; Stop 08/12/16 at 19:33; Status DC Hydralazine HCl 20 mg 20 mg ONCE ONCE IV PUSH Last administered on 08/12/16 19:51; Start 08/12/16 at 19:45; Stop 08/12/16 at 19:46; Status DC Nicardipine HCl/ Sodium Chloride (Cardene Inj/NS 250 ml Inj) 260 ml @ 0 mls/hr TITRATE IV Last administered on 08/17/16 21:20; Start 08/12/16 at 20:30; Stop 08/17/16 at 22:32; Status DC Hydralazine HCl (Apresoline Inj) 20 mg Q4H PRN IV PUSH SBP>160, DBP>90 Last administered on 09/04/16 09:00; Start 08/12/16 at 20:30 Labetalol HCl (Trandate Inj) 10 mg Q4H PRN IV PUSH SBP>160, DBP>90 Last administered on 09/04/16 06:25; Start 08/12/16 at 20:30; Stop 09/05/16 at 01:17 ; Status DC Hydralazine HCl (Apresoline Inj) 20 mg NOW ONCE IV ; Start 08/12/16 at 19:34; Stop 08/12/16 at 20:46; Status DC Dexamethasone Sodium Phosphate (Decadron Inj) 10 mg ONCE ONCE IV PUSH Last administered on 08/13/16 09:35; Start 08/13/16 at 09:15; Stop 08/13/16 at 09:16 ; Status DC Insulin Detemir (Levemir Inj) 10 units Q12HR SQ Last administered on 08/15/16 09:29; Start 08/15/16 at 09:00; Stop 08/16/16 at 07:32; Status DC Dextrose (D50w (Vial) Inj) 50 ml UNSCH PRN IV HYPOGLYCEMIA-SEE COMMENTS; Start 08/15/16 at 07:30; Stop 08/18/16 at 17:40; Status DC Glucagon (Glucagon Inj) 1 mg UNSCH PRN OTHER HYPOGLYCEMIA-SEE COMMENTS; Start 08/15/16 at 07:30; Stop 08/18/16 at 17:40; Status DC Insulin Aspart (NovoLOG SUPPLEMENTAL SCALE) 1 Q6H SQ Last administered on 08:00; Start 08/15/16 at 08:00; Stop 08/17/16 at 09:13; Status DC Insulin Detemir (Levemir Inj) 20 units Q12HR SQ Last administered on 08/17/16 08:25; Start 08/16/16 at 09:00; Stop 08/17/16 at 09:13; Status DC Hydralazine HCl (Apresoline) 100 mg Q8HR PO Last administered on 09/06/16 06: 22; Start 08/16/16 at 07:30 Insulin Detemir (Levemir Inj) 30 units Q12HR SQ Last administered on 08/19/16 21:46; Start 08/17/16 at 21:00; Stop 08/20/16 at 07:48; Status DC Dextrose (D50w (Vial) Inj) 50 ml UNSCH PRN IV HYPOGLYCEMIA-SEE COMMENTS Last administered on 08/23/16 06:38; Start 08/17/16 at 09:15; Stop 09/05/16 at 21:33 ; Status DC Glucagon (Glucagon Inj) 1 mg UNSCH PRN OTHER HYPOGLYCEMIA-SEE COMMENTS; Start 08/17/16 at 09:15; Stop 09/05/16 at 21:33; Status DC Insulin Aspart 1 1 ACHS SLIDING SCALE SQ Last administered on 09/04/16 16:00 ; Start 08/17/16 at 11:00; Stop 09/04/16 at 19:05; Status DC Sodium Chloride/ Sterile Water (Sodium Chloride 23.4% Inj/Sterile Water For Inj ) 1,009.625 ml @ 42 mls/hr Q24H IV Last administered on 08/18/16 06:57; Start 08/17/16 at 09:15; Stop 08/18/16 at 18:37; Status DC Hydrochlorothiazide (Hydrodiuril) 25 mg DAILY PO Last administered on 08/18/16 09:38; Start 08/17/16 at 09:30; Stop 08/20/16 at 07:41; Status DC Lisinopril (Prinivil) 10 mg Q12HR PO Last administered on 08/18/16 09:39; Start 08/17/16 at 21:00; Stop 08/20/16 at 07:41; Status DC Amlodipine Besylate 5 mg 5 mg DAILY PO Last administered on 08/18/16 09:39; Start 08/17/16 at 09:30; Stop 08/18/16 at 16:57; Status DC Nicardipine HCl 100 mg/Sodium Chloride 500 ml @ 0 mls/hr TITRATE IV Last administered on 08/18/16 00:13; Start 08/17/16 at 22:45; Stop 08/26/16 at 07:03; Status DC Clindamycin Phosphate 600 mg/ Sodium Chloride 104 ml @ 208 mls/hr [employer] IV ; Start 08/18/16 at 06:30; Status Cancel Gentamicin Sulfate/Sodium Chloride (Gentamicin Inj/ NS Inj) 103.75 ml @ 200 mls / hr [employer] IV ; Start 08/18/16 at 06:30; Status Cancel Nifedipine (Procardia) 30 mg Q6HR PO Last administered on 08/19/16 06:49; Start 08/18/16 at 18:00; Stop 08/19/16 at 07:01; Status DC Water (Free Water) 300 ml Q4HR G-TUBE Last administered on 08/27/16 04:00; Start 08/18/16 at 20:00; Stop 08/27/16 at 08:38; Status DC Furosemide (Lasix Inj) 100 mg ONCE ONCE IV PUSH Last administered on 08/18/16 22:00; Start 08/18/16 at 18:45; Stop 08/18/16 at 18:46; Status DC Clonidine 0.3 mg 0.3 mg Q8HR PO Last administered on 08/19/16 06:49; Start 08/18 at 22:00; Stop 08/19/16 at 07:01; Status DC Sodium Bicarbonate/ Dextrose (Sodium Bicarbonate 8.4% Inj/D5W 1000 ml Inj) 1, 150 ml @ 100 mls/hr [id number] IV Last administered on 08/20/16 00:42; Start 08/18 at 20:00; Stop 08/20/16 at 07:47; Status DC Sodium Bicarbonate 650 mg 650 mg Q8H PO Last administered on 08/19/16 22:12; Start 08/18/16 at 18:31; Stop 08/20/16 at 02:24; Status DC Sodium Chloride (NS 1000 ml Inj) 2,000 ml @ 0 mls/hr BOLUS ONCE IV Last administered on 08/19/16 02:23; Start 08/19/16 at 02:15; Stop 08/19/16 at 02:16; Status DC Furosemide (Lasix Inj) 100 mg ONCE ONCE IV PUSH Last administered on 08/19/16 09:04; Start 08/19/16 at 06:30; Stop 08/19/16 at 06:31; Status DC Clonidine (Catapres) 0.2 mg Q8HR PO Last administered on 08/26/16 04:49; Start 08/19/16 at 14:00; Stop 08/26/16 at 07:12; Status DC Nifedipine 10 mg 10 mg Q6HR PO Last administered on 09/06/16 11:22; Start 08/19 at 12:00 Phenylephrine HCl/ Dextrose (Neosynephrine Inj/D5W 500 ml Inj) 500 ml @ 0 mls/ hr TITRATE IV ; Start 08/19/16 at 08:00; Stop 08/22/16 at 10:07; Status DC Terbutaline Sulfate (Brethine Inj) 1 mg UNSCH PRN SQ For Extravasation; Start 08/19/16 at 07:00 Chlorothiazide Sodium (Diuril Inj) 500 mg ONCE ONCE IV Last administered on 15:03; Start 08/19/16 at 11:15; Stop 08/19/16 at 11:20; Status DC Sodium Bicarbonate 650 mg 650 mg Q8HR PO Last administered on 08/20/16 06:21; Start 08/20/16 at 06:00; Stop 08/20/16 at 13:09; Status DC Piperacillin Sod/ Tazobactam Sod 50 ml @ 100 mls/hr Q6H IV Last administered on 08/22/16 08:27; Start 08/20/16 at 09:00; Stop 08/22/16 at 10:07; Status DC Vancomycin HCl/ Sodium Chloride (Vancomycin Inj/ NS 250 ml Inj) 250 ml @ 250 mls/hr ONCE ONCE IV Last administered on 08/20/16 08:36; Start 08/20/16 at 07: 30; Stop 08/20/16 at 08:29; Status DC Dexamethasone Sodium Phosphate (Decadron Inj) 4 mg Q6H IV PUSH Last administered on 08/22/16 02:27; Start 08/20/16 at 08:00; Stop 08/22/16 at 07:59; Status DC Diphenhydramine HCl 25 mg 25 mg Q6H IV PUSH Last administered on 08/21/16 02:40 ; Start 08/20/16 at 08:00; Stop 08/21/16 at 07:59; Status DC Sodium Chloride (1/2 NS 1000 ml Inj) 1,000 ml @ 125 mls/hr Q8H IV Last administered on 08/20/16 08:00; Start 08/20/16 at 08:00; Stop 08/20/16 at 10:37; Status DC Insulin Detemir (Levemir Inj) 25 units Q12HR SQ Last administered on 08/22/16 19:48; Start 08/20/16 at 09:00; Stop 08/23/16 at 06:58; Status DC Chlorothiazide Sodium 500 mg 500 mg BID IV Last administered on 08/22/16 08:28 ; Start 08/20/16 at 13:15; Stop 08/22/16 at 09:43; Status DC Pharmacy Profile Note (Vancomycin Consult Pharmacy) 0 ml @ 0 mls/hr UNSCH OTHER ; Start 08/21/16 at 08:45; Stop 08/22/16 at 10:07; Status DC Miscellaneous Information Hold Anticoagulation after midni... ONCE ONCE OTHER ; Start 08/21/16 at 09:30; Stop 08/21/16 at 09:50; Status DC Vancomycin HCl/ Sodium Chloride (Vancomycin Inj/ NS 250 ml Inj) 262.5 ml @ 250 mls/hr ONCE ONCE IV Last administered on 08/21/16 13:00; Start 08/21/16 at 12: 00; Stop 08/21/16 at 13:02; Status DC Norepinephrine Bitartrate (Levophed Inj) 4 mg STK-MED ONCE .ROUTE Last administered on 08/21/16 15:27; Start 08/21/16 at 14:00; Stop 08/21/16 at 14:01; Status DC Midazolam HCl (Versed Inj) 10 mg ONCE ONCE IV PUSH ; Start 08/21/16 at 15:00; Stop 08/21/16 at 15:01; Status DC Fentanyl Citrate (fentaNYL INJ) 250 mcg ONCE ONCE IV PUSH ; Start 08/21/16 at 15 :00; Stop 08/21/16 at 15:01; Status DC Rocuronium [place] (Zemuron Inj) 100 mg BOLUS ONCE IV ; Start 08/21/16 at 15:00 ; Stop 08/21/16 at 15:01; Status DC Rocuronium [place] (Zemuron Inj) 50 mg STK-MED ONCE .ROUTE Last administered on 08/21/16 14:09; Start 08/21/16 at 14:07; Stop 08/21/16 at 14:08; Status DC Midazolam HCl (Versed Inj) 5 mg STK-MED ONCE .ROUTE Last administered on 15:19; Start 08/21/16 at 14:08; Stop 08/21/16 at 14:09; Status DC Vecuronium [place] (Norcuron 10 Mg Inj) 10 mg STK-MED ONCE .ROUTE ; Start at 14:08; Stop 08/21/16 at 14:09; Status DC Fentanyl Citrate (fentaNYL INJ) 100 mcg STK-MED ONCE .ROUTE Last administered on 08/21/16 15:19; Start 08/21/16 at 14:11; Stop 08/21/16 at 14:12; Status DC Fentanyl Citrate (fentaNYL INJ) 100 mcg STK-MED ONCE .ROUTE Last administered on 08/21/16 15:19; Start 08/21/16 at 14:16; Stop 08/21/16 at 14:17; Status DC Rocuronium [place] (Zemuron Inj) 50 mg STK-MED ONCE .ROUTE Last administered on 08/21/16 15:18; Start 08/21/16 at 14:17; Stop 08/21/16 at 14:18; Status DC Midazolam HCl (Versed Inj) 5 mg STK-MED ONCE .ROUTE Last administered on 15:20; Start 08/21/16 at 14:19; Stop 08/21/16 at 14:20; Status DC Propofol (Diprivan 200 Mg/20 ml Inj) 280 mg STK-MED ONCE IV ; Start 08/21/16 at 17:02; Stop 08/21/16 at 17:03; Status DC Chlorothiazide Sodium (Diuril Inj) 500 mg DAILY IV Last administered on 08:34; Start 08/23/16 at 09:00; Stop 08/26/16 at 07:05; Status DC Heparin Sodium (Porcine) 5000 units 5,000 units Q12HR SQ Last administered on 09:05; Start 08/22/16 at 10:00; Stop 08/24/16 at 13:09; Status DC Ceftriaxone Sodium 1000 mg/ Sodium Chloride 100 ml @ 200 mls/hr Q24H IV Last administered on 09/06/16 10:00; Start 08/22/16 at 11:00 Ceftriaxone Sodium/Sodium Chloride (Rocephin Inj/NS Inj) 100 ml @ 200 mls/hr Q24H IV ; Start 08/22/16 at 10:15; Status UNV Diphenhydramine HCl (Benadryl Inj) 50 mg STK-MED ONCE .ROUTE ; Start 08/22/16 at 20:23; Stop 08/22/16 at 20:24; Status DC Diphenhydramine HCl (Benadryl Inj) 50 mg NOW IV Last administered on 08/22/16 22:27; Start 08/22/16 at 22:30; Stop 08/22/16 at 23:56; Status DC Diphenhydramine HCl (Benadryl Inj) 50 mg Q6H IV Last administered on 09/06/16 10:00; Start 08/23/16 at 05:00 Famotidine (Pepcid Inj) 20 mg Q12HR IV PUSH Last administered on 08/23/16 09: 14; Start 08/23/16 at 09:00; Stop 08/23/16 at 12:02; Status DC Dexamethasone Sodium Phosphate (Decadron Inj) 4 mg Q6HR IV PUSH Last administered on 08/26/16 04:49; Start 08/23/16 at 06:45; Stop 08/26/16 at 07:00 ; Status DC Insulin Detemir (Levemir Inj) 15 units Q12HR SQ Last administered on 08/25/16 20:09; Start 08/23/16 at 09:00; Stop 08/26/16 at 07:15; Status DC Famotidine (Pepcid Inj) 10 mg Q12HR IV PUSH Last administered on 09/06/16 09: 50; Start 08/23/16 at 21:00 Heparin Sodium (Porcine) (Heparin Inj) 5,000 units Q8HR SQ Last administered on 09/06/16 06:19; Start 08/24/16 at 14:00 Dexamethasone Sodium Phosphate (Decadron Inj) 4 mg Q12HR IV PUSH Last administered on 08/28/16 21:00; Start 08/26/16 at 09:00; Stop 08/29/16 at 08:59 ; Status DC Clonidine (Catapres) 0.2 mg Q8HR PO ; Start 08/26/16 at 07:00; Stop 08/26/16 at 07:10; Status DC Clonidine (Catapres) 0.4 mg Q8HR PO Last administered on 09/06/16 06:22; Start 08/26/16 at 14:00 Metoprolol Tartrate (Lopressor) 25 mg Q8HR PO Last administered on 09/06/16 06 :22; Start 08/26/16 at 08:00 Insulin Detemir (Levemir Inj) 20 units Q12HR SQ Last administered on 09/02/16 08:37; Start 08/26/16 at 09:00; Stop 09/02/16 at 14:59; Status DC Clonidine (Catapres) 0.4 mg STAT ONCE PEG Last administered on 08/26/16 10:34 ; Start 08/26/16 at 10:30; Stop 08/26/16 at 10:31; Status DC Water (Free Water) 300 ml Q6HR G-TUBE Last administered on 08/28/16 11:44; Start 08/27/16 at 12:00; Stop 08/28/16 at 15:22; Status DC Hydromorphone HCl (Dilaudid Pf Inj) 0.5 mg Q4H PRN IV PUSH Breakthrough Pain or Headache Last administered on 09/03/16 16:41; Start 08/28/16 at 08:15 Clonidine (Catapres-Tts 0.3 Mg Patch.7d) 1 patch Q7D T-DERMAL Last administered on 09/04/16 12:27; Start 08/28/16 at 13:00 Labetalol HCl (Trandate Inj) 5 mg ONCE ONCE IV PUSH Last administered on 12:45; Start 08/28/16 at 12:45; Stop 08/28/16 at 12:46; Status DC Miscellaneous Information 1 Q7D T-DERMAL Last administered on 09/04/16 13:00; Start 09/04/16 at 13:00 Water (Free Water) 300 ml Q4H G-TUBE Last administered on 09/06/16 11:22; Start 08/28/16 at 16:00 Chlorothiazide Sodium (Diuril Inj) 250 mg ONCE ONCE IV Last administered on 14:00; Start 08/29/16 at 14:00; Stop 08/29/16 at 14:01; Status DC Chlorothiazide Sodium 500 mg 500 mg ONCE ONCE IV Last administered on 09:15; Start 08/31/16 at 09:15; Stop 08/31/16 at 09:16; Status DC Sodium Chloride/ Sterile Water (Sodium Chloride 23.4% Inj/Sterile Water For Inj ) 1,009.625 ml @ 50 mls/hr [id number] IV Last administered on 09/03/16 06:03; Start 09/02/16 at 11:00; Stop 09/04/16 at 14:24; Status DC Insulin Detemir (Levemir Inj) 22 units Q12HR SQ Last administered on 09/04/16 09:00; Start 09/02/16 at 21:00; Stop 09/04/16 at 15:18; Status DC Methylprednisolone Sodium Succinate (SoluMEDROL INJ) 40 mg Q8H IV PUSH ; Start 09/03/16 at 17:00; Stop 09/03/16 at 17:00; Status DC Prednisone (predniSONE LIQ) 40 mg DAILY PO Last administered on 09/04/16 08:01 ; Start 09/03/16 at 18:00; Stop 09/05/16 at 08:54; Status DC Insulin Human Regular (NovoLIN R INJ) 10 units ONCE ONCE IV PUSH Last administered on 09/04/16 06:34; Start 09/04/16 at 06:00; Stop 09/04/16 at 06:01 ; Status DC Dextrose (D50w (Vial) Inj) 50 ml ONCE ONCE IV PUSH Last administered on 06:34; Start 09/04/16 at 06:00; Stop 09/04/16 at 06:01; Status DC Calcium Gluconate (Calcium Gluconate Inj) 1 gm ONCE ONCE IV ; Start 09/04/16 at 06:00; Stop 09/04/16 at 06:00; Status DC Sodium Polystyrene Sulfonate 30 gm 30 gm ONCE ONCE PO ; Start 09/04/16 at 06:00 ; Stop 09/04/16 at 06:00; Status DC Calcium Gluconate/ Sodium Chloride (Calcium Gluconate Inj/NS Inj) 110 ml @ 110 mls/hr ONCE ONCE IV Last administered on 09/04/16 06:36; Start 09/04/16 at 07 :00; Stop 09/04/16 at 07:59; Status DC Sodium Polystyrene Sulfonate (Kayexalate Liq) 30 gm ONCE ONCE PEG Last administered on 09/04/16 06:35; Start 09/04/16 at 06:00; Stop 09/04/16 at 06:01 ; Status DC Furosemide (Lasix Inj) 40 mg DAILY IV PUSH Last administered on 09/05/16 08:57 ; Start 09/04/16 at 14:30; Stop 09/05/16 at 13:04; Status DC Insulin Detemir (Levemir Inj) 26 units Q12HR SQ Last administered on 09/05/16 08:58; Start 09/04/16 at 21:00; Stop 09/05/16 at 17:10; Status DC Insulin Aspart (NovoLOG SUPPLEMENTAL SCALE) 1 Q2HR SQ Last administered on 09/05 00:26; Start 09/04/16 at 20:00; Stop 09/05/16 at 17:09; Status DC Prednisone (predniSONE LIQ) 40 mg DAILY PEG Last administered on 09/06/16 11: 20; Start 09/05/16 at 09:00 Furosemide (Lasix Inj) 20 mg DAILY IV PUSH Last administered on 09/06/16 09:51 ; Start 09/06/16 at 09:00 Insulin Detemir (Levemir Inj) 22 units Q12HR SQ Last administered on 09/06/16 09:49; Start 09/05/16 at 21:00; Stop 09/06/16 at 10:10; Status DC Dextrose (D50w (Vial) Inj) 50 ml UNSCH PRN IV HYPOGLYCEMIA-SEE COMMENTS; Start 09/05/16 at 21:30 Glucagon (Glucagon Inj) 1 mg UNSCH PRN OTHER HYPOGLYCEMIA-SEE COMMENTS; Start 09/05/16 at 21:30 Insulin Aspart (NovoLOG SUPPLEMENTAL SCALE) 1 ACHS SLIDING SCALE SQ Last administered on 09/06/16 11:34; Start 09/06/16 at 07:00 Insulin Detemir (Levemir Inj) 24 units Q12HR SQ ; Start 09/06/16 at 21:00 Medical Decision Making MDM Remarks 56 y/o female with left basal ganglia bleed, most likely hypertensive in etiology Encephalopathy, neuro exam improved Angioedema, improving Plan Plan Remarks continue supportive care neurologically stable Daily PT therapy and rehab efforts BP control MSSA pneumonia. Treatment completed Escherichia coli UTI. Rocephin 1 GM Daily Anemia. Follow CBC daily Diabetes mellitus type 2. Continue Levemir 20 every 12 hours Sliding scale insulin Protonix for stress ulcer prophylaxis JOSH hose and sequential compression devices. Chris Blue MD Sep 05, 2016 18:33
[2016-09-05] MEDS ORDERED: GLUCAGON 1 MG/ML VIAL OTHER PRN (21:30)
[2016-09-05] MEDS ORDERED: DEXTROSE 50% IN WATER 50 ML VIAL(D50) IV PRN (21:30)
[2016-09-06] VITALS (12 sets, daily range): BP systolic 130–178; BP diastolic 76–106; PULSE 68–86; RESP 18–22; TEMP 97.3–98.2; O2SAT 99–100
[2016-09-06] MEDS: NIFEdipine 10 MG CAP PO SCH ×5 (01:32→23:15)
[2016-09-06] MEDS: FREE WATER G-TUBE SCH ×7 (04:00→23:15)
[2016-09-06] MEDS: CHLORHEXIDINE GLUCONATE 2 % 1 PACK (2 CLOTHS) TOP SCH (04:00)
[2016-09-06] MEDS: HEPARIN SODIUM - SQ 10,000 UNITS/ML VIAL SQ SCH ×3 (06:19→21:00)
[2016-09-06] MEDS: diphenhydrAMINE HCL 50 MG/ML VIAL IV SCH ×4 (06:19→23:15)
[2016-09-06] MEDS: INSULIN ASPART SUPPLEMENTAL SCALE SQ SCH ×4 (06:21→21:00)
[2016-09-06] MEDS: hydrALAZINE HCL 100 MG TAB PO SCH ×3 (06:22→21:00)
[2016-09-06] MEDS: METOPROLOL TARTRATE 25 MG TAB PO SCH ×3 (06:22→21:00)
[2016-09-06] MEDS: cloNIDine HCL 0.2 MG TAB PO SCH ×3 (06:22→21:00)
[2016-09-06] MEDS: SODIUM CHLORIDE 0.9% FLUSH 10 ML FLUSH SCH ×2 (09:48→21:01)
[2016-09-06] MEDS: INSULIN DETEMIR 100 UNITS/ML VIAL SQ SCH ×2 (09:49→21:00)
[2016-09-06] MEDS: FAMOTIDINE 20 MG/2 ML VIAL IV PUSH SCH ×2 (09:50→21:01)
[2016-09-06] MEDS: FUROSEMIDE 20 MG/2 ML VIAL IV PUSH SCH (09:51)
[2016-09-06] MEDS: DOCUSATE SODIUM 50 MG/SENNA 8.6 MG TAB PO SCH ×2 (09:52→21:00)
[2016-09-06] MEDS: cefTRIAXone INJ 1,000 MG in SODIUM CHLORIDE 0.9% INJ 100 ML IV SCH (10:00)
--- NOTE | 2016-09-06 10:11 | HHI.PR ---
Subjective Remarks This is a pleasant 56 y/o Female who came to ER with right sided weakness, non verbal, CT brain with left basal ganglia hemorrhagic stroke. She was intubated by an ER attending for an airway protection admitted to ICU. on 08/20/16 had fever and Leukocytosis, started on Zosyn blood cultures performed, Nephrology specialist following, with diagnosis of Acute Kidney Injury on chronic kidney Disease stage IV, May need Dialysis, Hypernatremia on free water intake, Hypertensive Emergency BP stable, to avoid RODGER inhibitors due to worsening renal function and Angioedema. 09/03: Increased volume of her tongue, will need to continue Steroids 09/04: Seen in her bedroom in the presence of her Mr. Cliff Richey , she is improving tongue swelling from yesterday will continue same dose of Prednisone, even her blood sugar is increased will try to titrate down as soon as possible, her Insulin Levemir was Increased and also her Blood sugar checks frequency, working with Physical therapy. 09/05: Seen in her bedroom, in the presence of nurse Mr. Pineda she is improving her tongue edema, discussed for more than 15 minutes with her Mr. Cliff Richey, he wants a letter for his Insurance will evaluate the kind of document he needs with [employer] [place] in am tomorrow. adjusted Insulin management. 09/06: Stable seen with female nurse in her bedroom and Respiratory Therapy specialist, asking for removal of stitches on her Tracheostomy I agree also she had fell during the night and had trauma on her tongue has some ecchymosis and crusted blood on her tongue, No nausea, vomit or diarrhea. Objective Vital Signs Date Time Temp Pulse Resp B/P Pulse Ox O2 Delivery O2 Flow Rate FiO2 09/06/16 09:27 83 09/06/16 08:34 97.3 74 18 130/76 100 09/06/16 06:00 98.0 70 22 150/80 100 09/06/16 05:00 98.2 72 22 149/82 100 09/06/16 04:00 98.1 72 22 149/83 100 09/06/16 00:00 97.7 68 18 154/84 99 09/05/16 21:50 98 T-piece 5.00 28 09/05/16 20:00 98.7 77 20 179/98 100 09/05/16 15:50 98.8 78 24 139/82 99 09/05/16 12:24 97.3 75 24 152/95 100 I/O 09/05/16 09/05/16 09/05/16 09/06/16 09/06/16 09/06/16 07:00 15:00 23:00 07:00 15:00 23:00 Output Total 1775 ml 1450 ml 500 ml Balance -1775 ml -1450 ml -500 ml Output Urine Total 1775 ml 1450 ml 500 ml Result Diagram: 09/04/16 0330 09/05/16 0833 Imaging Last Impressions Chest X-Ray 09/04/16 0000 Signed Impressions: Service Date/Time: August 15:08 - CONCLUSION: Underinflated examination. No acute cardiopulmonary abnormality is identified. Estrada Busch MD Renal Ultrasound 08/18/16 0000 Signed Impressions: Service Date/Time: Thursday, August 18, 2016 20:22 - CONCLUSION: 1. Small echogenic kidneys typical of chronic parenchymal disease. No evidence of obstructive uropathy or other acute renal abnormality. 2. Chacon in the bladder, grossly unremarkable. 3. Apparent small retroperitoneal free fluid, etiology uncertain. Estrada Dunham MD Abdomen X-Ray 08/16/16 0000 Signed Impressions: Service Date/Time: Tuesday, August 16, 2016 08:05 - CONCLUSION: Is a chest tube tip in stomach. Side port in the region of the gastroesophageal junction. Jhony Kirkpatrick MD Head CT 08/13/16 0800 Signed Impressions: Service Date/Time: Saturday, August 13, 2016 04:37 - CONCLUSION: Stable brain appearance Estrada Snow MD Procedures Endotracheal Intubation and extubation Tracheostomy PEG tube placement. Other Results Laboratory Tests Test 09/04/16 09/05/16 03:30 08:33 White Blood Count 17.1 TH/MM3 Red Blood Count 3.36 MIL/MM3 Hemoglobin 9.6 GM/DL Hematocrit 30.2 % Mean Corpuscular Volume 89.9 FL Mean Corpuscular Hemoglobin 28.6 PG Mean Corpuscular Hemoglobin 31.8 % Concent Red Cell Distribution Width 15.0 % Platelet Count 209 TH/MM3 Mean Platelet Volume 11.4 FL Neutrophils (%) (Auto) 92.5 % Lymphocytes (%) (Auto) 5.4 % Monocytes (%) (Auto) 0.9 % Eosinophils (%) (Auto) 0.6 % Basophils (%) (Auto) 0.6 % Neutrophils # (Auto) 15.8 TH/MM3 Lymphocytes # (Auto) 0.9 TH/MM3 Monocytes # (Auto) 0.1 TH/MM3 Eosinophils # (Auto) 0.1 TH/MM3 Basophils # (Auto) 0.1 TH/MM3 CBC Comment DIFF FINAL Differential Comment Hematology Comments Sodium Level 144 MEQ/L Potassium Level 3.6 MEQ/L Chloride Level 106 MEQ/L Carbon Dioxide Level 26.2 MEQ/L Anion Gap 12 MEQ/L Blood Urea Nitrogen 73 MG/DL Creatinine 3.61 MG/DL Estimat Glomerular Filtration 16 ML/MIN Rate Random Glucose 81 MG/DL Calcium Level 9.0 MG/DL Phosphorus Level 4.2 MG/DL Albumin 2.4 GM/DL Objective Remarks GENERAL: NAD, A&Ox0. HEAD: Normocephalic. Angioedema tongue present Improving. NECK: Supple, trachea midline. No lymphadenopathy. Tracheostomy present EYES: No scleral icterus. No injection or drainage. CARDIOVASCULAR: Regular rate and rhythm without murmurs, gallops, or rubs. RESPIRATORY: Breath sounds equal bilaterally. No accessory muscle use. GASTROINTESTINAL: Abdomen soft, non-tender, nondistended. PEG tube in place. MUSCULOSKELETAL: No cyanosis, or edema. SKIN: Warm and dry. NEURO: Alert, looks oriented and moves all four extremities. Medications and IVs Current Medications Medications (Trade) Dose Ordered Sig/Jones Route Start Time Stop Time Status Last Admin (NS Flush) 2 ml UNSCH PRN .XX 08/12/16 18:30 (NS Flush) 2 ml BID .XX 08/12/16 21:00 09/06/16 09:48 (Tylenol) 650 mg Q6H PRN PO 08/12/16 18:30 08/26/16 10:25 Miscellaneous Information 1 Q361D XX 08/12/16 18:30 (Chlorhexidine 2% Cloth) Taper DAILY@04 TOP 08/13/16 04:00 08/09/17 03:59 09/04/16 04:07 (Chlorhexidine 2% Cloth) 3 pack UNSCH PRN TOP 08/12/16 18:30 (Adele-Colace) 1 tab BID PO 08/12/16 21:00 09/06/16 09:52 (Milk Of Magnesia Liq) 30 ml Q12H PRN PO 08/12/16 18:30 08/23/16 09:14 (Senokot) 17.2 mg Q12H PRN PO 08/12/16 18:30 08/23/16 05:10 (Dulcolax Supp) 10 mg DAILY PRN RECTAL 08/12/16 18:30 08/23/16 09:14 (Lactulose Liq) 30 ml DAILY PRN PO 08/12/16 18:30 08/23/16 09:14 (Apresoline Inj) 20 mg Q4H PRN IV PUSH 08/12/16 20:30 09/04/16 09:00 (Apresoline) 100 mg Q8HR PO 08/16/16 07:30 09/06/16 06:22 (Procardia) 10 mg Q6HR PO 08/19/16 12:00 09/06/16 06:00 Terbutaline Sulfate 1 mg 1 mg UNSCH PRN SQ 08/19/16 07:00 (Rocephin Inj/NS Inj) 100 ml @ 200 mls/hr Q24H IV 08/22/16 11:00 09/05/16 12:44 (Benadryl Inj) 50 mg Q6H IV 08/23/16 05:00 09/06/16 06:19 (Pepcid Inj) 10 mg Q12HR IV PUSH 08/23/16 21:00 09/06/16 09:50 (Heparin Inj) 5,000 units Q8HR SQ 08/24/16 14:00 09/06/16 06:19 (Catapres) 0.4 mg Q8HR PO 08/26/16 14:00 09/06/16 06:22 (Lopressor) 25 mg Q8HR PO 08/26/16 08:00 09/06/16 06:22 (Dilaudid Pf Inj) 0.5 mg Q4H PRN IV PUSH 08/28/16 08:15 09/03/16 16:41 (Catapres-Tts 0.3 Mg Patch.7d) 1 patch Q7D T-DERMAL 08/28/16 13:00 09/04/16 12:27 Miscellaneous Information 1 Q7D T-DERMAL 09/04/16 13:00 09/04/16 13:00 (Free Water) 300 ml Q4H G-TUBE 08/28/16 16:00 09/06/16 08:00 (predniSONE LIQ) 40 mg DAILY PEG 09/05/16 09:00 09/05/16 09:55 (Lasix Inj) 20 mg DAILY IV PUSH 09/06/16 09:00 09/06/16 09:51 (Levemir Inj) 22 units Q12HR SQ 09/05/16 21:00 09/06/16 09:49 (D50w (Vial) Inj) 50 ml UNSCH PRN IV 09/05/16 21:30 (Glucagon Inj) 1 mg UNSCH PRN OTHER 09/05/16 21:30 A/P Assessment and Plan 56-year-old female admitted secondary to basal ganglia hemorrhage related to hypertension. Status post lisinopril reaction with angioedema. Also admitted related to hypertensive urgency. Angioedema is improving slowly. Acute blood loss discovered last afternoon. Patient transfused 3 units of packed red blood cells 08/30/16. Anemia stabilized right now. Follow CBC. Acute blood loss anemia Hemoglobin 9.6 Status post 3 units of packed red blood cells transfused 08/30/16. follow for tomorrow. Status post basal ganglia hemorrhage Persistent respiratory failure Improving Encephalopathy. Acute hemorrhagic basal ganglia stroke Acute encephalopathy Maintain blood pressure control with systolic goal less than 160 mmHg Follow neurological status Neurosurgeon following Physical therapy Occupational therapy Out of bed to chair as tolerated Acute hypoxic respiratory failure Hypercarbic respiratory failure Tracheostomy present Continue oxygenation via tracheostomy Tracheostomy care Pulmonary toilet Wean FiO2 as tolerated When necessary and scheduled nebulized treatments Pulmonology following Severe Angioedema Secondary to lisinopril Avoid Rodger inhibitors Prednisone 40 mg daily. continue until complete improvement then titrate. Continue Pepcid Continue Benadryl Follow for improvement Hypertension Recent hypertensive urgency controlled. Continue metoprolol Continue hydralazine Continue clonidine Continue nifedipine Avoid lisinopril as patient has allergy to this. Acute on chronic renal failure CKD stage IV creatinine trending down, Nephrology following, may need Hemodialysis. Monitor I's and O's Maintain Chacon catheter Decreased Lasix Dose by Nephrology specialist. Hypernatremia/Hyperkalemia Improved. free water 300 ml every four hours. Acute protein calorie malnutrition Continue tube feedings Follow albumin MSSA pneumonia Treatment completed Escherichia coli UTI Treated with Rocephin 1 GM Daily Diabetes mellitus type 2 Continue Levemir 24 units every 12 hours Sliding scale insulin Moderate every four hours. continue tube feedings adjusted Insulin DVT prophylaxis SCDs and subcutaneous heparin GI prophylaxis Pepcid Lines: Peripheral IV Chacon catheter Discussed with patient and nurse in her bedroom Miss Lacy, all questions answered to the best of my abilities. Awaiting for her he will bring a document for his Insurance will review the document with Case Manger once here Discharge Planning Not yet cleared for discharge. Rick Barba MD Sep 06, 2016 10:11
[2016-09-06] MEDS: ACETAMINOPHEN 325 MG TAB PO PRN ×2 (11:20→21:01)
[2016-09-06] MEDS: predniSONE 5 MG/5 ML CUP PEG SCH (11:20)
--- NOTE | 2016-09-06 12:37 | HHI.NPPN ---
Subjective General Problems: Edema Renal Failure: Acute Review of Systems General General Remarks unable to obtain Ears, Nose, & Throat ENT Remarks tongue swelling Objective Data Data 09/05/16 09/06/16 19:00 07:00 Output Total 2525 ml 1200 ml Balance -2525 ml -1200 ml Output Urine Total 2525 ml 1200 ml Vital Signs Date Time Temp Pulse Resp B/P Pulse Ox O2 Delivery O2 Flow Rate FiO2 09/06/16 12:04 97.4 75 19 151/89 100 09/06/16 11:34 100 Trach Collar 6.00 28 T-Piece Humidified 09/06/16 10:04 99 T-piece 28 09/06/16 09:27 83 09/06/16 08:34 97.3 74 18 130/76 100 09/06/16 06:00 98.0 70 22 150/80 100 09/06/16 05:00 98.2 72 22 149/82 100 09/06/16 04:00 98.1 72 22 149/83 100 09/06/16 00:00 97.7 68 18 154/84 99 09/05/16 21:50 98 T-piece 5.00 28 09/05/16 20:00 98.7 77 20 179/98 100 09/05/16 15:50 98.8 78 24 139/82 99 -: 09/04/16 0330 09/05/16 0833 Tubes & Lines: Chacon Physical Exam General Appearance: Well Developed, No Acute Distress, Obese Eyes Eye Exam: Pupils Equal Throat Throat Exam: Oral Mucosa Binger & Moist Pulmonary Resp Exam: Breath Sounds Equal, Crackles, Rhonchi Cardiology CV Exam: Regular, Normal Sinus Rhythm, Good Perfusion Gastrointestinal/Abdomen GI Exam: Non-Tender, Bowel Sounds Present Musculoskeletal MS Exam: Joints Intact, Normal Tone, Unable to Ambulate Integumentary Skin Exam: Clear, Warm, Dry, Intact Extremeties Extremities Exam: Pedal Pulses Palpable, Trace Edema Neurologic Neuro Exam: Awake, Obtunded Assessment/Plan Discussed Condition With: Daughter Assessment Summary: CHRIS/Acute Renal Failure, Acute Tubular Necrosis, Fluid/ Volume Overload, Proteinuria, Hypertension, CKD Stage IV Electrolyte Assessment: Hypernatremia Problem List: (1) Acute worsening of stage 4 chronic kidney disease Plan: Creatinine still at CKD 4 Stage Hyperkalemia was treated UOP 3.7 L good response to Lasix 20 mg follow BMP (2) Hypernatremia Plan: Continue free water, 300 Q4h Use Lasix (3) Hypertensive emergency Plan: BP is stable continue oral medications avoid NEGRITO due to CHRIS and angioedema (4) Thalamic hemorrhage Plan: due to hypertensive crisis neurosurgery non surgical management (5) Respiratory failure Plan: s/p trach with T piece appreciate respiratory therapy assistance (6) Anemia, unspecified Plan: Hb stable, Problem Qualifiers (1) Respiratory failure: Qualified Code: J96.00 - Acute respiratory failure, unspecified whether with hypoxia or hypercapnia Bettie Pepper MD Sep 06, 2016 12:37
[2016-09-06] MEDS: MAGNESIUM HYDROXIDE SUSP 30 ML CUP PO PRN (16:26)
[2016-09-07] VITALS (10 sets, daily range): BP systolic 130–167; BP diastolic 69–100; PULSE 58–74; RESP 18–19; TEMP 95.4–98.7; O2SAT 98–100
[2016-09-07] MEDS: CHLORHEXIDINE GLUCONATE 2 % 1 PACK (2 CLOTHS) TOP SCH (01:58)
[2016-09-07] MEDS: FREE WATER G-TUBE SCH ×6 (03:20→20:59)
[2016-09-07] MEDS: diphenhydrAMINE HCL 50 MG/ML VIAL IV SCH ×4 (04:07→22:50)
[2016-09-07] MEDS: METOPROLOL TARTRATE 25 MG TAB PO SCH ×3 (05:37→21:08)
[2016-09-07] MEDS: HEPARIN SODIUM - SQ 10,000 UNITS/ML VIAL SQ SCH ×3 (05:37→21:08)
[2016-09-07] MEDS: cloNIDine HCL 0.2 MG TAB PO SCH ×3 (05:37→21:08)
[2016-09-07] MEDS: INSULIN ASPART SUPPLEMENTAL SCALE SQ SCH ×4 (05:37→20:57)
[2016-09-07] MEDS: hydrALAZINE HCL 100 MG TAB PO SCH ×3 (05:37→21:08)
[2016-09-07] MEDS: NIFEdipine 10 MG CAP PO SCH ×4 (05:37→22:56)
[2016-09-07] MEDS: FAMOTIDINE 20 MG/2 ML VIAL IV PUSH SCH ×2 (08:33→21:00)
[2016-09-07] MEDS: FUROSEMIDE 20 MG/2 ML VIAL IV PUSH SCH (08:33)
[2016-09-07] MEDS: SODIUM CHLORIDE 0.9% FLUSH 10 ML FLUSH SCH ×2 (08:34→20:59)
[2016-09-07] MEDS: predniSONE 5 MG/5 ML CUP PEG SCH (08:37)
[2016-09-07] MEDS: DOCUSATE SODIUM 50 MG/SENNA 8.6 MG TAB PO SCH ×2 (08:37→20:59)
[2016-09-07] MEDS: INSULIN DETEMIR 100 UNITS/ML VIAL SQ SCH (08:49)
--- NOTE | 2016-09-07 09:03 | HHI.PR ---
Subjective Remarks This is a pleasant 56 y/o Female who came to ER with right sided weakness, non verbal, CT brain with left basal ganglia hemorrhagic stroke. She was intubated by an ER attending for an airway protection admitted to ICU. on 08/20/16 had fever and Leukocytosis, started on Zosyn blood cultures performed, Nephrology specialist following, with diagnosis of Acute Kidney Injury on chronic kidney Disease stage IV, May need Dialysis, Hypernatremia on free water intake, Hypertensive Emergency BP stable, to avoid RODGER inhibitors due to worsening renal function and Angioedema. 09/03: Increased volume of her tongue, will need to continue Steroids 09/04: Seen in her bedroom in the presence of her Mr. Cliff Richey , she is improving tongue swelling from yesterday will continue same dose of Prednisone, even her blood sugar is increased will try to titrate down as soon as possible, her Insulin Levemir was Increased and also her Blood sugar checks frequency, working with Physical therapy. 09/05: Seen in her bedroom, in the presence of nurse Mr. Pineda she is improving her tongue edema, discussed for more than 15 minutes with her Mr. Cliff Richey, he wants a letter for his Insurance will evaluate the kind of document he needs with [employer] in am tomorrow. adjusted Insulin management. 09/06: Stable seen with female nurse in her bedroom and Respiratory Therapy specialist, asking for removal of stitches on her Tracheostomy. 09/07: Patient Alert and oriented x 3 helping with her management, improving tongue edema, but still continue edematous, uncontrolled blood sugar to continue present care, adjusted insulin and following. No nausea, vomit or diarrhea. Objective Vital Signs Date Time Temp Pulse Resp B/P Pulse Ox O2 Delivery O2 Flow Rate FiO2 09/07/16 08:12 97.5 69 18 144/87 100 09/07/16 04:00 95.4 69 18 167/78 99 09/07/16 00:00 98.3 74 18 141/100 100 09/07/16 00:00 98.7 74 18 141/69 100 09/06/16 20:00 97.9 73 20 178/106 100 09/06/16 20:00 T-Piece 28 Humidified 09/06/16 20:00 86 09/06/16 17:52 77 22 173/81 99 09/06/16 17:27 100 T-piece 6.00 28 09/06/16 16:23 98.2 71 18 153/91 100 09/06/16 12:04 97.4 75 19 151/89 100 09/06/16 11:34 100 Trach Collar 6.00 28 T-Piece Humidified 09/06/16 10:04 99 T-piece 28 09/06/16 09:27 83 I/O 09/06/16 09/06/16 09/06/16 09/07/16 09/07/16 09/07/16 07:00 15:00 23:00 07:00 15:00 23:00 Intake Total 670 ml 1322 ml 917 ml 300 ml Output Total 500 ml 1000 ml 1150 ml 800 ml Balance -500 ml -330 ml 172 ml 117 ml 300 ml IV Total 70 ml 0 ml 0 ml Tube Feeding 722 ml 317 ml Other 600 ml 600 ml 600 ml 300 ml Output Urine Total 500 ml 1000 ml 1150 ml 800 ml # Bowel Movements 3 Result Diagram: 09/04/16 0330 09/05/16 0833 Imaging Last Impressions Chest X-Ray 09/04/16 0000 Signed Impressions: Service Date/Time: August 15:08 - CONCLUSION: Underinflated examination. No acute cardiopulmonary abnormality is identified. Estrada Busch MD Renal Ultrasound 08/18/16 0000 Signed Impressions: Service Date/Time: Thursday, August 18, 2016 20:22 - CONCLUSION: 1. Small echogenic kidneys typical of chronic parenchymal disease. No evidence of obstructive uropathy or other acute renal abnormality. 2. Chacon in the bladder, grossly unremarkable. 3. Apparent small retroperitoneal free fluid, etiology uncertain. Estrada Dunham MD Abdomen X-Ray 08/16/16 0000 Signed Impressions: Service Date/Time: Tuesday, August 16, 2016 08:05 - CONCLUSION: Is a chest tube tip in stomach. Side port in the region of the gastroesophageal junction. Jhony Kirkpatrick MD Head CT 08/13/16 0800 Signed Impressions: Service Date/Time: Saturday, August 13, 2016 04:37 - CONCLUSION: Stable brain appearance Estrada Snow MD Procedures Endotracheal Intubation and extubation Tracheostomy PEG tube placement. Other Results Laboratory Tests Test 09/04/16 09/05/16 03:30 08:33 White Blood Count 17.1 TH/MM3 Red Blood Count 3.36 MIL/MM3 Hemoglobin 9.6 GM/DL Hematocrit 30.2 % Mean Corpuscular Volume 89.9 FL Mean Corpuscular Hemoglobin 28.6 PG Mean Corpuscular Hemoglobin 31.8 % Concent Red Cell Distribution Width 15.0 % Platelet Count 209 TH/MM3 Mean Platelet Volume 11.4 FL Neutrophils (%) (Auto) 92.5 % Lymphocytes (%) (Auto) 5.4 % Monocytes (%) (Auto) 0.9 % Eosinophils (%) (Auto) 0.6 % Basophils (%) (Auto) 0.6 % Neutrophils # (Auto) 15.8 TH/MM3 Lymphocytes # (Auto) 0.9 TH/MM3 Monocytes # (Auto) 0.1 TH/MM3 Eosinophils # (Auto) 0.1 TH/MM3 Basophils # (Auto) 0.1 TH/MM3 CBC Comment DIFF FINAL Differential Comment Hematology Comments Sodium Level 144 MEQ/L Potassium Level 3.6 MEQ/L Chloride Level 106 MEQ/L Carbon Dioxide Level 26.2 MEQ/L Anion Gap 12 MEQ/L Blood Urea Nitrogen 73 MG/DL Creatinine 3.61 MG/DL Estimat Glomerular Filtration 16 ML/MIN Rate Random Glucose 81 MG/DL Calcium Level 9.0 MG/DL Phosphorus Level 4.2 MG/DL Albumin 2.4 GM/DL Objective Remarks GENERAL: NAD, A&Ox0. HEAD: Normocephalic. Angioedema tongue present Improving. NECK: Supple, trachea midline. No lymphadenopathy. Tracheostomy present EYES: No scleral icterus. No injection or drainage. CARDIOVASCULAR: Regular rate and rhythm without murmurs, gallops, or rubs. RESPIRATORY: Breath sounds equal bilaterally. No accessory muscle use. GASTROINTESTINAL: Abdomen soft, non-tender, nondistended. PEG tube in place. MUSCULOSKELETAL: No cyanosis, or edema. SKIN: Warm and dry. NEURO: Alert, oriented x 3. Medications and IVs Current Medications Medications (Trade) Dose Ordered Sig/Jones Route Start Time Stop Time Status Last Admin (NS Flush) 2 ml UNSCH PRN .XX 08/12/16 18:30 (NS Flush) 2 ml BID .XX 08/12/16 21:00 09/07/16 08:34 (Tylenol) 650 mg Q6H PRN PO 08/12/16 18:30 09/06/16 21:01 Miscellaneous Information 1 Q361D XX 08/12/16 18:30 (Chlorhexidine 2% Cloth) Taper DAILY@04 TOP 08/13/16 04:00 08/09/17 03:59 09/04/16 04:07 (Chlorhexidine 2% Cloth) 3 pack UNSCH PRN TOP 08/12/16 18:30 (Adele-Colace) 1 tab BID PO 08/12/16 21:00 09/07/16 08:37 (Milk Of Magnesia Liq) 30 ml Q12H PRN PO 08/12/16 18:30 09/06/16 16:26 (Senokot) 17.2 mg Q12H PRN PO 08/12/16 18:30 08/23/16 05:10 (Dulcolax Supp) 10 mg DAILY PRN RECTAL 08/12/16 18:30 08/23/16 09:14 (Lactulose Liq) 30 ml DAILY PRN PO 08/12/16 18:30 08/23/16 09:14 (Apresoline Inj) 20 mg Q4H PRN IV PUSH 08/12/16 20:30 09/04/16 09:00 (Apresoline) 100 mg Q8HR PO 08/16/16 07:30 09/07/16 05:37 (Procardia) 10 mg Q6HR PO 08/19/16 12:00 09/07/16 05:37 Terbutaline Sulfate 1 mg 1 mg UNSCH PRN SQ 08/19/16 07:00 (Rocephin Inj/NS Inj) 100 ml @ 200 mls/hr Q24H IV 08/22/16 11:00 09/06/16 10:00 (Benadryl Inj) 50 mg Q6H IV 08/23/16 05:00 09/07/16 04:07 (Pepcid Inj) 10 mg Q12HR IV PUSH 08/23/16 21:00 09/07/16 08:33 (Heparin Inj) 5,000 units Q8HR SQ 08/24/16 14:00 09/07/16 05:37 (Catapres) 0.4 mg Q8HR PO 08/26/16 14:00 09/07/16 05:37 (Lopressor) 25 mg Q8HR PO 08/26/16 08:00 09/07/16 05:37 (Dilaudid Pf Inj) 0.5 mg Q4H PRN IV PUSH 08/28/16 08:15 09/03/16 16:41 (Catapres-Tts 0.3 Mg Patch.7d) 1 patch Q7D T-DERMAL 08/28/16 13:00 09/04/16 12:27 Miscellaneous Information 1 Q7D T-DERMAL 09/04/16 13:00 09/04/16 13:00 (Free Water) 300 ml Q4H G-TUBE 08/28/16 16:00 09/07/16 08:00 (predniSONE LIQ) 40 mg DAILY PEG 09/05/16 09:00 09/07/16 08:37 (Lasix Inj) 20 mg DAILY IV PUSH 09/06/16 09:00 09/07/16 08:33 (D50w (Vial) Inj) 50 ml UNSCH PRN IV 09/05/16 21:30 (Glucagon Inj) 1 mg UNSCH PRN OTHER 09/05/16 21:30 (Levemir Inj) 24 units Q12HR SQ 09/06/16 21:00 09/07/16 08:49 A/P Assessment and Plan 56-year-old female admitted secondary to basal ganglia hemorrhage related to hypertension. Status post lisinopril reaction with angioedema. Also admitted related to hypertensive urgency. Angioedema is improving slowly. Acute blood loss discovered last afternoon. Patient transfused 3 units of packed red blood cells 08/30/16. Anemia stabilized right now. Follow CBC. Acute blood loss anemia Hemoglobin 9.6 Status post 3 units of packed red blood cells transfused 08/30/16. follow for tomorrow. Status post basal ganglia hemorrhage Persistent respiratory failure nuclear weapons mechanical specialist following Encephalopathy Improved. Acute hemorrhagic basal ganglia stroke Acute encephalopathy Maintain blood pressure control with systolic goal less than 160 mmHg Follow neurological status Neurosurgeon no further management. Physical therapy Occupational therapy Out of bed to chair as tolerated Acute hypoxic respiratory failure Hypercarbic respiratory failure Tracheostomy present Continue oxygenation via tracheostomy Tracheostomy care Pulmonary toilet Wean FiO2 as tolerated When necessary and scheduled nebulized treatments Pulmonology following Severe Angioedema Improving. Secondary to lisinopril Avoid Rodger inhibitors Prednisone 40 mg daily. continue until complete improvement then titrate. Continue Pepcid Continue Benadryl Follow for improvement Hypertension Recent hypertensive urgency controlled. Continue metoprolol Continue hydralazine Continue clonidine Continue nifedipine Avoid lisinopril as patient has allergy to this. Acute on chronic renal failure CKD stage IV creatinine trending down, Nephrology following, may need Hemodialysis. Monitor I's and O's Maintain Chacon catheter Decreased Lasix Dose by Nephrology specialist. Hypernatremia/Hyperkalemia Improved. free water 300 ml every four hours. Acute protein calorie malnutrition Continue tube feedings Follow albumin MSSA pneumonia Treatment completed Escherichia coli UTI Treated with Rocephin 1 GM Daily Diabetes mellitus type 2 Continue Levemir 26 units every 12 hours Sliding scale insulin Moderate every four hours. continue tube feedings adjusted Insulin DVT prophylaxis SCDs and subcutaneous heparin GI prophylaxis Pepcid Lines: Peripheral IV Chacon catheter Discussed with patient and nurse in her bedroom Miss Lacy, all questions answered to the best of my abilities. Awaiting for her he will bring a document for his Insurance will review the document with [employer] once here Discharge Planning Not yet cleared for discharge. Rick Barba MD Sep 07, 2016 09:03
[2016-09-07 09:28] LABS: AUTOMATED NEUTROPHIL # 11.6 TH/MM3 (1.8-7.7); BASOPHIL % 0.3 % (0.0-2.0); EOSINOPHIL # 0.2 TH/MM3 (0-0.4); EOSINOPHIL % 1.6 % (0.0-4.0); HEMATOCRIT 30.3 % (35.0-46.0); HEMO FLAGS DIFF FINAL; LYMPH % 9.2 % (9.0-44.0); LYMPHOCYTE # 1.3 TH/MM3 (1.0-4.8); MEAN CELL VOLUME 89.5 FL (80.0-100.0); MEAN CORPUSCULAR HGB CONC 33.5 % (32.0-36.0); MONO % 7.2 % (0.0-8.0); NEUT % 81.7 % (16.0-70.0); PLATELET COUNT 239 TH/MM3 (150-450); RED BLOOD COUNT 3.39 MIL/MM3 (4.00-5.30); RED CELL DISTRIBUTION WIDTH 14.9 % (11.6-17.2); WHITE BLOOD COUNT 14.2 TH/MM3 (4.0-11.0)
[2016-09-07 10:12] LABS: BICARBONATE 27.7 MEQ/L (21.0-32.0); MAGNESIUM 3.2 MG/DL (1.5-2.5); POTASSIUM 4.1 MEQ/L (3.5-5.1)
[2016-09-07] MEDS: cefTRIAXone INJ 1,000 MG in SODIUM CHLORIDE 0.9% INJ 100 ML IV SCH (11:15)
--- NOTE | 2016-09-07 12:41 | HHI.NPPN ---
Subjective General Problems: Edema Renal Failure: Acute Review of Systems General General Remarks unable to obtain Ears, Nose, & Throat ENT Remarks tongue swelling Objective Data Data 09/06/16 09/07/16 19:00 07:00 Intake Total 1390 ml 1519 ml Output Total 1550 ml 1400 ml Balance -160 ml 119 ml IV Total 70 ml 0 ml Tube Feeding 420 ml 619 ml Other 900 ml 900 ml Output Urine Total 1550 ml 1400 ml # Bowel Movements 3 Vital Signs Date Time Temp Pulse Resp B/P Pulse Ox O2 Delivery O2 Flow Rate FiO2 09/07/16 12:01 96.0 74 18 162/84 99 09/07/16 09:15 74 09/07/16 09:03 98 T-piece 5.00 28 09/07/16 08:12 97.5 69 18 144/87 100 09/07/16 04:00 95.4 69 18 167/78 99 09/07/16 00:00 98.3 74 18 141/100 100 09/07/16 00:00 98.7 74 18 141/69 100 09/06/16 20:00 97.9 73 20 178/106 100 09/06/16 20:00 T-Piece 28 Humidified 09/06/16 20:00 86 09/06/16 17:52 77 22 173/81 99 09/06/16 17:27 100 T-piece 6.00 28 09/06/16 16:23 98.2 71 18 153/91 100 -: 09/07/16 0919 09/07/16 0919 Tubes & Lines: [place] Physical Exam General Appearance: Well Developed, No Acute Distress, Obese Eyes Eye Exam: Pupils Equal Throat Throat Exam: Oral Mucosa [place] & Moist Pulmonary Resp Exam: Breath Sounds Equal, Crackles, Rhonchi Cardiology CV Exam: Regular, Normal Sinus Rhythm, Good Perfusion Gastrointestinal/Abdomen GI Exam: Non-Tender, Bowel Sounds Present Musculoskeletal MS Exam: Joints Intact, Normal Tone, Unable to Ambulate Integumentary Skin Exam: Clear, Warm, Dry, Intact Extremeties Extremities Exam: Pedal Pulses Palpable, Trace Edema Neurologic Neuro Exam: Awake, Obtunded Assessment/Plan Discussed Condition With: Daughter Assessment Summary: CHRIS/Acute Renal Failure, Acute Tubular Necrosis, Fluid/ Volume Overload, Proteinuria, Hypertension, CKD Stage IV Electrolyte Assessment: Hypernatremia Problem List: (1) Acute worsening of stage 4 chronic kidney disease Plan: Creatinine still at CKD 4 Stage Hyperkalemia was treated UOP 2.9 L good response to Lasix 20 mg Na 134 decrease water flushes follow BMP (2) Hypernatremia Plan: Continue free water, change 300 Q 6 Use Lasix (3) Hypertensive emergency Plan: BP is stable continue oral medications avoid NEGRITO due to CHRIS and angioedema (4) Thalamic hemorrhage Plan: due to hypertensive crisis neurosurgery non surgical management (5) Respiratory failure Plan: s/p trach with T piece appreciate respiratory therapy assistance (6) Anemia, unspecified Plan: Hb stable, Problem Qualifiers (1) Respiratory failure: Qualified Code: J96.00 - Acute respiratory failure, unspecified whether with hypoxia or hypercapnia Bettie Pepper MD Sep 07, 2016 12:40
[2016-09-07] MEDS: ACETAMINOPHEN 325 MG TAB PO PRN (14:51)
[2016-09-07] MEDS ORDERED: INSULIN DETEMIR 100 UNITS/ML VIAL SQ SCH (21:00)
[2016-09-08] VITALS (9 sets, daily range): BP systolic 132–172; BP diastolic 78–90; PULSE 60–74; RESP 17–20; TEMP 96.5–98; O2SAT 98–100
[2016-09-08] MEDS: CHLORHEXIDINE GLUCONATE 2 % 1 PACK (2 CLOTHS) TOP SCH ×2 (04:17→22:49)
[2016-09-08] MEDS: diphenhydrAMINE HCL 50 MG/ML VIAL IV SCH ×4 (04:17→22:48)
[2016-09-08] MEDS: cloNIDine HCL 0.2 MG TAB PO SCH ×3 (05:36→20:32)
[2016-09-08] MEDS: NIFEdipine 10 MG CAP PO SCH ×4 (05:36→22:48)
[2016-09-08] MEDS: METOPROLOL TARTRATE 25 MG TAB PO SCH ×3 (05:36→20:32)
[2016-09-08] MEDS: hydrALAZINE HCL 100 MG TAB PO SCH ×3 (05:36→20:32)
[2016-09-08] MEDS: HEPARIN SODIUM - SQ 10,000 UNITS/ML VIAL SQ SCH ×3 (05:36→20:32)
[2016-09-08] MEDS: INSULIN ASPART SUPPLEMENTAL SCALE SQ SCH ×3 (06:16→16:00)
[2016-09-08] MEDS: FREE WATER G-TUBE SCH ×4 (09:00→20:40)
[2016-09-08] MEDS: SODIUM CHLORIDE 0.9% FLUSH 10 ML FLUSH SCH ×2 (09:00→20:39)
[2016-09-08] MEDS: predniSONE 5 MG/5 ML CUP PEG SCH (09:22)
[2016-09-08] MEDS: DOCUSATE SODIUM 50 MG/SENNA 8.6 MG TAB PO SCH ×2 (09:25→20:33)
[2016-09-08] MEDS: FAMOTIDINE 20 MG/2 ML VIAL IV PUSH SCH ×2 (09:26→20:33)
[2016-09-08] MEDS: FUROSEMIDE 20 MG/2 ML VIAL IV PUSH SCH (09:26)
--- NOTE | 2016-09-08 09:28 | HHI.PR ---
Subjective Remarks This is a pleasant 56 y/o Female who came to ER with right sided weakness, non verbal, CT brain with left basal ganglia hemorrhagic stroke. She was intubated by an ER attending for an airway protection admitted to ICU. on 08/20/16 had fever and Leukocytosis, started on Zosyn blood cultures performed, Nephrology specialist following, with diagnosis of Acute Kidney Injury on chronic kidney Disease stage IV, May need Dialysis, Hypernatremia on free water intake, Hypertensive Emergency BP stable, to avoid RODGER inhibitors due to worsening renal function and Angioedema. 09/03: Increased volume of her tongue, will need to continue Steroids 09/04: Seen in her bedroom in the presence of her Mr. Cliff Richey , she is improving tongue swelling from yesterday will continue same dose of Prednisone, even her blood sugar is increased will try to titrate down as soon as possible, her Insulin Levemir was Increased and also her Blood sugar checks frequency, working with Physical therapy. 09/05: Seen in her bedroom, in the presence of nurse Mr. Pineda she is improving her tongue edema, discussed for more than 15 minutes with her Mr. Cliff Richey, he wants a letter for his Insurance will evaluate the kind of document he needs with Sanitation Manager in am tomorrow. adjusted Insulin management. 09/06: Stable seen with female nurse in her bedroom and Respiratory Therapy specialist, asking for removal of stitches on her Tracheostomy. 09/07: Patient Alert and oriented x 3 helping with her management, improving tongue edema, but still continue edematous, uncontrolled blood sugar to continue present care, adjusted insulin and following. 09/08; Seen in her bedroom, Improving her Tongue swelling discussed with nurse to try to push the tongue inside her mouth to avoid more trauma from the patient, continue working with PT and OT, needs detention rehab after we may get rid of the Tracheostomy tube. Objective Vital Signs Date Time Temp Pulse Resp B/P Pulse Ox O2 Delivery O2 Flow Rate FiO2 09/08/16 08:00 97.6 67 17 145/85 100 09/08/16 04:00 96.9 72 18 172/83 100 09/08/16 00:00 96.5 60 18 132/90 99 09/07/16 23:41 58 09/07/16 22:54 100 T-Piece 5.00 28 Humidified 09/07/16 20:00 97.2 73 18 130/76 100 09/07/16 18:05 99 T-piece 6.00 28 09/07/16 15:56 98.3 74 19 158/72 99 09/07/16 12:01 96.0 74 18 162/84 99 09/07/16 12:00 97 T-Piece 5.00 28 Humidified I/O 09/07/16 09/07/16 09/07/16 09/08/16 09/08/16 09/08/16 07:00 15:00 23:00 07:00 15:00 23:00 Intake Total 917 ml 1000 ml 1223 ml 577 ml Output Total 800 ml 1700 ml 700 ml Balance 117 ml 1000 ml -477 ml -123 ml IV Total 0 ml 100 ml Tube Feeding 317 ml 623 ml 277 ml Other 600 ml 900 ml 600 ml 300 ml Output Urine Total 800 ml 1700 ml 700 ml # Bowel Movements 3 Result Diagram: 09/07/1691809/07/16918 Imaging Last Impressions Chest X-Ray 09/04/16 0000 Signed Impressions: Service Date/Time: August 15:08 - CONCLUSION: Underinflated examination. No acute cardiopulmonary abnormality is identified. Estrada Busch MD Renal Ultrasound 08/18/16 0000 Signed Impressions: Service Date/Time: Thursday, August 18, 2016 20:22 - CONCLUSION: 1. Small echogenic kidneys typical of chronic parenchymal disease. No evidence of obstructive uropathy or other acute renal abnormality. 2. [place] in the bladder, grossly unremarkable. 3. Apparent small retroperitoneal free fluid, etiology uncertain. Estrada Dunham MD Abdomen X-Ray 08/16/16 0000 Signed Impressions: Service Date/Time: Tuesday, August 16, 2016 08:05 - CONCLUSION: Is a chest tube tip in stomach. Side port in the region of the gastroesophageal junction. Jhony Kirkpatrick MD Head CT 08/13/16 0800 Signed Impressions: Service Date/Time: Saturday, August 13, 2016 04:37 - CONCLUSION: Stable brain appearance Estrada Snow MD Procedures Endotracheal Intubation and extubation Tracheostomy PEG tube placement. Other Results Laboratory Tests Test 09/04/16 09/05/16 09/07/16 03:30 08:33 09:19 Hematology Comments Phosphorus Level 4.2 MG/DL Albumin 2.4 GM/DL White Blood Count 14.2 TH/MM3 Red Blood Count 3.39 MIL/MM3 Hemoglobin 10.2 GM/DL Hematocrit 30.3 % Mean Corpuscular Volume 89.5 FL Mean Corpuscular Hemoglobin 30.0 PG Mean Corpuscular Hemoglobin 33.5 % Concent Red Cell Distribution Width 14.9 % Platelet Count 239 TH/MM3 Mean Platelet Volume 10.0 FL Neutrophils (%) (Auto) 81.7 % Lymphocytes (%) (Auto) 9.2 % Monocytes (%) (Auto) 7.2 % Eosinophils (%) (Auto) 1.6 % Basophils (%) (Auto) 0.3 % Neutrophils # (Auto) 11.6 TH/MM3 Lymphocytes # (Auto) 1.3 TH/MM3 Monocytes # (Auto) 1.0 TH/MM3 Eosinophils # (Auto) 0.2 TH/MM3 Basophils # (Auto) 0.0 TH/MM3 CBC Comment DIFF FINAL Differential Comment Sodium Level 134 MEQ/L Potassium Level 4.1 MEQ/L Chloride Level 98 MEQ/L Carbon Dioxide Level 27.7 MEQ/L Anion Gap 8 MEQ/L Blood Urea Nitrogen 83 MG/DL Creatinine 3.58 MG/DL Estimat Glomerular Filtration 16 ML/MIN Rate Random Glucose 225 MG/DL Calcium Level 9.1 MG/DL Magnesium Level 3.2 MG/DL Objective Remarks GENERAL: NAD, A&Ox0. HEAD: Normocephalic. Angioedema tongue present Improving. NECK: Supple, trachea midline. No lymphadenopathy. Tracheostomy present EYES: No scleral icterus. No injection or drainage. CARDIOVASCULAR: Regular rate and rhythm without murmurs, gallops, or rubs. RESPIRATORY: Breath sounds equal bilaterally. No accessory muscle use. GASTROINTESTINAL: Abdomen soft, non-tender, nondistended. PEG tube in place. MUSCULOSKELETAL: No cyanosis, or edema. SKIN: Warm and dry. NEURO: Alert, oriented x 3. Medications and IVs Current Medications Medications (Trade) Dose Ordered Sig/Jones Route Start Time Stop Time Status Last Admin (NS Flush) 2 ml UNSCH PRN .XX 08/12/16 18:30 (NS Flush) 2 ml BID .XX 08/12/16 21:00 09/07/16 20:59 (Tylenol) 650 mg Q6H PRN PO 08/12/16 18:30 09/07/16 14:51 Miscellaneous Information 1 Q361D XX 08/12/16 18:30 (Chlorhexidine 2% Cloth) Taper DAILY@04 TOP 08/13/16 04:00 08/09/17 03:59 09/04/16 04:07 (Chlorhexidine 2% Cloth) 3 pack UNSCH PRN TOP 08/12/16 18:30 (Adele-Colace) 1 tab BID PO 08/12/16 21:00 09/07/16 20:59 (Milk Of Magnesia Liq) 30 ml Q12H PRN PO 08/12/16 18:30 09/06/16 16:26 (Senokot) 17.2 mg Q12H PRN PO 08/12/16 18:30 08/23/16 05:10 (Dulcolax Supp) 10 mg DAILY PRN RECTAL 08/12/16 18:30 08/23/16 09:14 (Lactulose Liq) 30 ml DAILY PRN PO 08/12/16 18:30 08/23/16 09:14 (Apresoline Inj) 20 mg Q4H PRN IV PUSH 08/12/16 20:30 09/04/16 09:00 (Apresoline) 100 mg Q8HR PO 08/16/16 07:30 09/08/16 05:36 (Procardia) 10 mg Q6HR PO 08/19/16 12:00 09/08/16 05:36 Terbutaline Sulfate 1 mg 1 mg UNSCH PRN SQ 08/19/16 07:00 (Rocephin Inj/NS Inj) 100 ml @ 200 mls/hr Q24H IV 08/22/16 11:00 09/07/16 11:15 (Benadryl Inj) 50 mg Q6H IV 08/23/16 05:00 09/08/16 04:17 (Pepcid Inj) 10 mg Q12HR IV PUSH 08/23/16 21:00 09/07/16 21:00 (Heparin Inj) 5,000 units Q8HR SQ 08/24/16 14:00 09/08/16 05:36 (Catapres) 0.4 mg Q8HR PO 08/26/16 14:00 09/08/16 05:36 (Lopressor) 25 mg Q8HR PO 08/26/16 08:00 09/08/16 05:36 (Dilaudid Pf Inj) 0.5 mg Q4H PRN IV PUSH 08/28/16 08:15 09/03/16 16:41 (Catapres-Tts 0.3 Mg Patch.7d) 1 patch Q7D T-DERMAL 08/28/16 13:00 09/04/16 12:27 Miscellaneous Information 1 Q7D T-DERMAL 09/04/16 13:00 09/04/16 13:00 (predniSONE LIQ) 40 mg DAILY PEG 09/05/16 09:00 09/07/16 08:37 (Lasix Inj) 20 mg DAILY IV PUSH 09/06/16 09:00 09/07/16 08:33 (D50w (Vial) Inj) 50 ml UNSCH PRN IV 09/05/16 21:30 (Glucagon Inj) 1 mg UNSCH PRN OTHER 09/05/16 21:30 (Levemir Inj) 26 units Q12HR SQ 09/07/16 21:00 09/07/16 20:58 (Free Water) 300 ml QID G-TUBE 09/07/16 13:00 09/07/16 20:59 A/P Assessment and Plan 56-year-old female admitted secondary to basal ganglia hemorrhage related to hypertension. Status post lisinopril reaction with angioedema. Also admitted related to hypertensive urgency. Angioedema is improving slowly. Acute blood loss discovered last afternoon. Patient transfused 3 units of packed red blood cells 08/30/16. Anemia stabilized right now. Follow CBC. Acute blood loss anemia Hemoglobin 10.2 Status post 3 units of packed red blood cells transfused 08/30/16. follow for tomorrow. Status post basal ganglia hemorrhage Persistent respiratory failure certified peer specialist following Encephalopathy Improved. Acute hemorrhagic basal ganglia stroke Acute encephalopathy Maintain blood pressure control with systolic goal less than 160 mmHg Follow neurological status Neurosurgeon no further management. Physical therapy Occupational therapy Out of bed to chair as tolerated Acute hypoxic respiratory failure Hypercarbic respiratory failure Tracheostomy present Continue oxygenation via tracheostomy Tracheostomy care Pulmonary toilet Wean FiO2 as tolerated When necessary and scheduled nebulized treatments Pulmonology following Severe Angioedema Improving. Secondary to lisinopril Avoid Rodger inhibitors Prednisone 30 mg daily Continue Pepcid Continue Benadryl Follow for improvement Hypertension Recent hypertensive urgency controlled. Continue metoprolol Continue hydralazine Continue clonidine Continue nifedipine Avoid lisinopril as patient has allergy to this. Acute on chronic renal failure CKD stage IV creatinine trending down creatinine trending down, Nephrology following, may need Hemodialysis. Monitor I's and O's Maintain [place] catheter Decreased Lasix Dose by Nephrology specialist. Hypernatremia/Hyperkalemia Improved. free water 300 ml every four hours. Acute protein calorie malnutrition Continue tube feedings Follow albumin MSSA pneumonia Treatment completed Escherichia coli UTI Treated with Rocephin 1 GM Daily Diabetes mellitus type 2 Uncontrolled Continue Levemir 28 units every 12 hours Sliding scale insulin Moderate every four hours. continue tube feedings adjusted Insulin DVT prophylaxis SCDs and subcutaneous heparin GI prophylaxis Pepcid Lines: Peripheral IV [place] catheter Discussed with patient and nurse, all questions answered to the best of my abilities. Discharge Planning Not yet cleared for discharge. Rick Barba MD Sep 08, 2016 09:28
[2016-09-08] MEDS ORDERED: INSULIN DETEMIR 100 UNITS/ML VIAL SQ ONE (09:45)
[2016-09-08] MEDS: cefTRIAXone INJ 1,000 MG in SODIUM CHLORIDE 0.9% INJ 100 ML IV SCH (11:00)
[2016-09-08 11:07] LABS: BICARBONATE 30.2 MEQ/L (21.0-32.0); POTASSIUM 3.8 MEQ/L (3.5-5.1)
--- NOTE | 2016-09-08 16:25 | HHI.PR ---
Subjective Remarks ass: IC BLEED S/P TRACH NO DISTRESS tongue swelling seems less Objective Vital Signs Date Time Temp Pulse Resp B/P Pulse Ox O2 Delivery O2 Flow Rate FiO2 09/08/16 16:03 97.2 68 17 138/78 99 09/08/16 14:17 100 T-piece 5.00 28 09/08/16 12:03 98.0 69 17 134/78 100 09/08/16 09:46 100 T-Piece 5.00 28 Humidified 09/08/16 08:00 97.6 67 17 145/85 100 09/08/16 04:00 96.9 72 18 172/83 100 09/08/16 00:00 96.5 60 18 132/90 99 09/07/16 23:41 58 09/07/16 22:54 100 T-Piece 5.00 28 Humidified 09/07/16 20:00 97.2 73 18 130/76 100 09/07/16 18:05 99 T-piece 6.00 28 I/O 09/07/16 09/07/16 09/07/16 09/08/16 09/08/16 09/08/16 07:00 15:00 23:00 07:00 15:00 23:00 Intake Total 917 ml 1000 ml 1223 ml 577 ml Output Total 800 ml 1700 ml 700 ml Balance 117 ml 1000 ml -477 ml -123 ml IV Total 0 ml 100 ml Tube Feeding 317 ml 623 ml 277 ml Other 600 ml 900 ml 600 ml 300 ml Output Urine Total 800 ml 1700 ml 700 ml # Bowel Movements 3 Result Diagram: 09/07/16 0919 09/08/16 1011 Procedures Endotracheal Intubation and extubation Tracheostomy PEG tube placement. Objective Remarks GENERAL: SKIN: Warm and dry. HEAD: Atraumatic. Normocephalic. tongue protruding EYES: Pupils equal and round. No scleral icterus. No injection or drainage. ENT: No nasal bleeding or discharge. Mucous membranes pink and moist. NECK: Trachea midline. trach in place . CARDIOVASCULAR: Regular rate and rhythm. RESPIRATORY: No accessory muscle use. Clear to auscultation. Breath sounds equal bilaterally. GASTROINTESTINAL: Abdomen soft, non-tender, nondistended. Hepatic and splenic margins not palpable. MUSCULOSKELETAL: Extremities without clubbing, cyanosis, or edema. No obvious deformities. NEUROLOGICAL: Awake and alert. No obvious cranial nerve deficits. Motor grossly within normal limits. Five out of 5 muscle strength in the arms and legs. Normal speech. PSYCHIATRIC: Appropriate mood and affect; insight and judgment normal. Assessment and Plan Assessment and Plan ass respiratory failure S/P IC bleed S/P Tracheostomy plan: O2 as needed pulmonary toilet WILL KEEP TRACH IN [place] TONGUE IS OBSTRUCTING AIRWAY Bianca Valenzuela MD Sep 08, 2016 16:25
[2016-09-08] MEDS: INSULIN NovoLIN REGULAR SUPPLEMENTAL SCALE SQ SCH (20:37)
[2016-09-08] MEDS ORDERED: INSULIN DETEMIR 100 UNITS/ML VIAL SQ SCH (21:00)
[2016-09-09] VITALS (10 sets, daily range): BP systolic 128–157; BP diastolic 72–82; PULSE 63–74; RESP 16–20; TEMP 96.5–98.6; O2SAT 98–100
[2016-09-09] MEDS: diphenhydrAMINE HCL 50 MG/ML VIAL IV SCH ×4 (05:00→23:00)
[2016-09-09] MEDS: HEPARIN SODIUM - SQ 10,000 UNITS/ML VIAL SQ SCH ×3 (06:00→23:00)
[2016-09-09] MEDS: NIFEdipine 10 MG CAP PO SCH ×3 (06:00→16:50)
[2016-09-09] MEDS: cloNIDine HCL 0.2 MG TAB PO SCH ×3 (06:00→23:00)
[2016-09-09] MEDS: METOPROLOL TARTRATE 25 MG TAB PO SCH ×3 (06:00→23:00)
[2016-09-09] MEDS: hydrALAZINE HCL 100 MG TAB PO SCH ×3 (06:00→22:59)
[2016-09-09] MEDS: INSULIN NovoLIN REGULAR SUPPLEMENTAL SCALE SQ SCH ×4 (06:50→21:00)
[2016-09-09] MEDS: SODIUM CHLORIDE 0.9% FLUSH 10 ML FLUSH SCH ×2 (09:00→23:44)
[2016-09-09] MEDS: FREE WATER G-TUBE SCH ×4 (09:00→23:45)
[2016-09-09] MEDS: INSULIN DETEMIR 100 UNITS/ML VIAL SQ SCH ×2 (09:00→21:00)
[2016-09-09] MEDS: predniSONE 5 MG/5 ML CUP PEG SCH (09:14)
--- NOTE | 2016-09-09 09:25 | HHI.PR ---
Subjective Remarks This is a pleasant 56 y/o Female who came to ER with right sided weakness, non verbal, CT brain with left basal ganglia hemorrhagic stroke. She was intubated by an ER attending for an airway protection admitted to ICU. on 08/20/16 had fever and Leukocytosis, started on Zosyn blood cultures performed, Nephrology specialist following, with diagnosis of Acute Kidney Injury on chronic kidney Disease stage IV, May need Dialysis, Hypernatremia on free water intake, Hypertensive Emergency BP stable, to avoid RODGER inhibitors due to worsening renal function and Angioedema. 09/03: Increased volume of her tongue, will need to continue Steroids 09/04: Seen in her bedroom in the presence of her Mr. Cliff Richey , she is improving tongue swelling from yesterday will continue same dose of Prednisone, even her blood sugar is increased will try to titrate down as soon as possible, her Insulin Levemir was Increased and also her Blood sugar checks frequency, working with Physical therapy. 09/05: Improving her tongue edema, discussed for more than 15 minutes with her Mr. Cliff Richey, he wants a letter for his Insurance will evaluate the kind of document he needs with [employer] in am tomorrow. adjusted Insulin management. 09/06: Stable seen with female nurse in her bedroom and Respiratory Therapy specialist, asking for removal of stitches on her Tracheostomy. 09/07: Patient Alert and oriented x 3 helping with her management, improving tongue edema, but still continue edematous, uncontrolled blood sugar to continue present care, adjusted insulin and following. 09/08; Seen in her bedroom, Improving her Tongue swelling discussed with nurse to try to push the tongue inside her mouth to avoid more trauma from the patient, continue working with PT and OT, needs detention rehab after we may get rid of the Tracheostomy tube. 09/09: Stable in her bedroom, seen in the presence of nurse Miss Nino improving her Tongue edema, also discussed about the need to place an anterior barrier for her tongue to try to avoid trauma, no nausea, vomit or diarrhea, as per Pulmonary to continue Tracheostomy until finish Tongue edema and able to decannulate. Objective Vital Signs Date Time Temp Pulse Resp B/P Pulse Ox O2 Delivery O2 Flow Rate FiO2 09/09/16 08:08 98.1 73 16 131/75 99 09/09/16 07:53 99 T-piece 5.00 28 09/09/16 04:00 97.2 74 20 157/81 99 09/09/16 00:00 97.7 63 20 148/82 100 09/08/16 21:30 98 T-piece 5.00 09/08/16 20:00 67 09/08/16 20:00 96.8 66 20 152/87 100 09/08/16 19:00 T-Piece 5.00 28 Humidified 09/08/16 18:06 74 09/08/16 16:03 97.2 68 17 138/78 99 09/08/16 14:17 100 T-piece 5.00 28 09/08/16 12:03 98.0 69 17 134/78 100 09/08/16 09:46 100 T-Piece 5.00 28 Humidified I/O 09/08/16 09/08/16 09/08/16 09/09/16 09/09/16 09/09/16 07:00 15:00 23:00 07:00 15:00 23:00 Intake Total 577 ml 1791 ml Output Total 700 ml 1375 ml 500 ml 800 ml Balance -123 ml -1375 ml 1291 ml -800 ml IV Total 200 ml Tube Feeding 277 ml 541 ml Other 300 ml 1050 ml Output Urine Total 700 ml 1375 ml 500 ml 800 ml # Bowel Movements 0 Result Diagram: 09/07/16 0919 09/08/16 1011 Imaging Last Impressions Chest X-Ray 09/04/16 0000 Signed Impressions: Service Date/Time: August 15:08 - CONCLUSION: Underinflated examination. No acute cardiopulmonary abnormality is identified. Estrada Busch MD Renal Ultrasound 08/18/16 0000 Signed Impressions: Service Date/Time: Thursday, August 18, 2016 20:22 - CONCLUSION: 1. Small echogenic kidneys typical of chronic parenchymal disease. No evidence of obstructive uropathy or other acute renal abnormality. 2. [place] in the bladder, grossly unremarkable. 3. Apparent small retroperitoneal free fluid, etiology uncertain. Estrada Dunham MD Abdomen X-Ray 08/16/16 0000 Signed Impressions: Service Date/Time: Tuesday, August 16, 2016 08:05 - CONCLUSION: Is a chest tube tip in stomach. Side port in the region of the gastroesophageal junction. Jhony Kirkpatrick MD Head CT 08/13/16 0800 Signed Impressions: Service Date/Time: Saturday, August 13, 2016 04:37 - CONCLUSION: Stable brain appearance Estrada Snow MD Procedures Endotracheal Intubation and extubation Tracheostomy PEG tube placement. Other Results Laboratory Tests Test 09/05/16 09/07/16 09/08/16 08:33 09:19 10:11 Phosphorus Level 4.2 MG/DL Albumin 2.4 GM/DL White Blood Count 14.2 TH/MM3 Red Blood Count 3.39 MIL/MM3 Hemoglobin 10.2 GM/DL Hematocrit 30.3 % Mean Corpuscular Volume 89.5 FL Mean Corpuscular Hemoglobin 30.0 PG Mean Corpuscular Hemoglobin 33.5 % Concent Red Cell Distribution Width 14.9 % Platelet Count 239 TH/MM3 Mean Platelet Volume 10.0 FL Neutrophils (%) (Auto) 81.7 % Lymphocytes (%) (Auto) 9.2 % Monocytes (%) (Auto) 7.2 % Eosinophils (%) (Auto) 1.6 % Basophils (%) (Auto) 0.3 % Neutrophils # (Auto) 11.6 TH/MM3 Lymphocytes # (Auto) 1.3 TH/MM3 Monocytes # (Auto) 1.0 TH/MM3 Eosinophils # (Auto) 0.2 TH/MM3 Basophils # (Auto) 0.0 TH/MM3 CBC Comment DIFF FINAL Differential Comment Magnesium Level 3.2 MG/DL Sodium Level 134 MEQ/L Potassium Level 3.8 MEQ/L Chloride Level 94 MEQ/L Carbon Dioxide Level 30.2 MEQ/L Anion Gap 10 MEQ/L Blood Urea Nitrogen 77 MG/DL Creatinine 3.46 MG/DL Estimat Glomerular Filtration 16 ML/MIN Rate Random Glucose 274 MG/DL Calcium Level 9.2 MG/DL Objective Remarks GENERAL: NAD, A&Ox0. HEAD: Normocephalic. Angioedema tongue present Improving. NECK: Supple, trachea midline. No lymphadenopathy. Tracheostomy present EYES: No scleral icterus. No injection or drainage. CARDIOVASCULAR: Regular rate and rhythm without murmurs, gallops, or rubs. RESPIRATORY: Breath sounds equal bilaterally. No accessory muscle use. GASTROINTESTINAL: Abdomen soft, non-tender, nondistended. PEG tube in place. MUSCULOSKELETAL: No cyanosis, or edema. SKIN: Warm and dry. NEURO: Alert, oriented x 3. Medications and IVs Current Medications Medications (Trade) Dose Ordered Sig/Jones Route Start Time Stop Time Status Last Admin (NS Flush) 2 ml UNSCH PRN .XX 08/12/16 18:30 (NS Flush) 2 ml BID .XX 08/12/16 21:00 09/09/16 09:00 (Tylenol) 650 mg Q6H PRN PO 08/12/16 18:30 09/07/16 14:51 Miscellaneous Information 1 Q361D XX 08/12/16 18:30 (Chlorhexidine 2% Cloth) Taper DAILY@04 TOP 08/13/16 04:00 08/09/17 03:59 09/04/16 04:07 (Chlorhexidine 2% Cloth) 3 pack UNSCH PRN TOP 08/12/16 18:30 (Adele-Colace) 1 tab BID PO 08/12/16 21:00 09/08/16 20:33 (Milk Of Magnesia Liq) 30 ml Q12H PRN PO 08/12/16 18:30 09/06/16 16:26 (Senokot) 17.2 mg Q12H PRN PO 08/12/16 18:30 08/23/16 05:10 (Dulcolax Supp) 10 mg DAILY PRN RECTAL 08/12/16 18:30 08/23/16 09:14 (Lactulose Liq) 30 ml DAILY PRN PO 08/12/16 18:30 08/23/16 09:14 (Apresoline Inj) 20 mg Q4H PRN IV PUSH 08/12/16 20:30 09/04/16 09:00 (Apresoline) 100 mg Q8HR PO 08/16/16 07:30 09/09/16 06:00 (Procardia) 10 mg Q6HR PO 08/19/16 12:00 09/09/16 06:00 Terbutaline Sulfate 1 mg 1 mg UNSCH PRN SQ 08/19/16 07:00 (Rocephin Inj/NS Inj) 100 ml @ 200 mls/hr Q24H IV 08/22/16 11:00 09/08/16 11:00 (Benadryl Inj) 50 mg Q6H IV 08/23/16 05:00 09/09/16 05:00 (Pepcid Inj) 10 mg Q12HR IV PUSH 08/23/16 21:00 09/08/16 20:33 (Heparin Inj) 5,000 units Q8HR SQ 08/24/16 14:00 09/09/16 06:00 (Catapres) 0.4 mg Q8HR PO 08/26/16 14:00 09/09/16 06:00 (Lopressor) 25 mg Q8HR PO 08/26/16 08:00 09/09/16 06:00 (Dilaudid Pf Inj) 0.5 mg Q4H PRN IV PUSH 08/28/16 08:15 09/03/16 16:41 (Catapres-Tts 0.3 Mg Patch.7d) 1 patch Q7D T-DERMAL 08/28/16 13:00 09/04/16 12:27 Miscellaneous Information 1 Q7D T-DERMAL 09/04/16 13:00 09/04/16 13:00 (Lasix Inj) 20 mg DAILY IV PUSH 09/06/16 09:00 09/08/16 09:26 (D50w (Vial) Inj) 50 ml UNSCH PRN IV 09/05/16 21:30 (Glucagon Inj) 1 mg UNSCH PRN OTHER 09/05/16 21:30 (Free Water) 300 ml QID G-TUBE 09/07/16 13:00 09/09/16 09:00 (predniSONE LIQ) 30 mg DAILY PEG 09/09/16 09:00 09/09/16 09:14 (Levemir Inj) 30 units Q12HR SQ 09/09/16 09:00 A/P Assessment and Plan 56-year-old female admitted secondary to basal ganglia hemorrhage related to hypertension. Status post lisinopril reaction with angioedema. Also admitted related to hypertensive urgency. Angioedema is improving slowly. Acute blood loss discovered last afternoon. Patient transfused 3 units of packed red blood cells 08/30/16. Anemia stabilized right now. Follow CBC. Acute blood loss anemia Hemoglobin 10.2 Status post 3 units of packed red blood cells transfused 08/30/16. follow for tomorrow. 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 Acute hemorrhagic basal ganglia stroke Acute encephalopathy Maintain blood pressure control with systolic goal less than 160 mmHg Follow neurological status Neurosurgeon no further management. Physical therapy Occupational therapy Out of bed to chair as tolerated Acute hypoxic respiratory failure Hypercarbic respiratory failure Tracheostomy present Continue oxygenation via tracheostomy Tracheostomy care Pulmonary toilet Wean FiO2 as tolerated When necessary and scheduled nebulized treatments Pulmonology following Severe Angioedema Improving. Secondary to lisinopril Avoid Rodger inhibitors Prednisone 30 mg daily Continue Pepcid Continue Benadryl Follow for improvement Hypertension Recent hypertensive urgency controlled. Continue metoprolol Continue hydralazine Continue clonidine Continue nifedipine Avoid lisinopril as patient has allergy to this. Acute on chronic renal failure CKD stage IV creatinine trending down creatinine trending down, Nephrology following, may need Hemodialysis. Monitor I's and O's Maintain Chacon catheter Decreased Lasix Dose by Nephrology specialist. Hypernatremia/Hyperkalemia Improved. free water 300 ml every four hours. Acute protein calorie malnutrition Continue tube feedings Follow albumin MSSA pneumonia Treatment completed Escherichia coli UTI Treated with Rocephin 1 GM Daily Diabetes mellitus type 2 Uncontrolled Continue Levemir 30 units every 12 hours Sliding scale insulin Moderate every four hours. continue tube feedings adjusted Insulin with the decreased dose of Prednisone expected to decrease Sugar level . follow closely. DVT prophylaxis SCDs and subcutaneous heparin GI prophylaxis Pepcid Lines: Peripheral IV Chacon catheter Discussed with patient and nurse Miss Nino, all questions answered to the best of my abilities. Discharge Planning Not yet cleared for discharge. Rick Barba MD Sep 09, 2016 09:25
[2016-09-09] MEDS: FAMOTIDINE 20 MG/2 ML VIAL IV PUSH SCH ×2 (09:27→23:01)
[2016-09-09] MEDS: DOCUSATE SODIUM 50 MG/SENNA 8.6 MG TAB PO SCH ×2 (09:27→22:59)
[2016-09-09] MEDS: FUROSEMIDE 20 MG/2 ML VIAL IV PUSH SCH (09:28)
[2016-09-09] MEDS: cefTRIAXone INJ 1,000 MG in SODIUM CHLORIDE 0.9% INJ 100 ML IV SCH (11:56)
--- NOTE | 2016-09-09 13:29 | HHI.NPPN ---
Subjective General Problems: Edema Renal Failure: Acute Review of Systems General General Remarks unable to obtain Ears, Nose, & Throat ENT Remarks tongue swelling Objective Data Data 09/08/16 09/09/16 19:00 07:00 Intake Total 1150 ml 641 ml Output Total 1375 ml 1300 ml Balance -225 ml -659 ml IV Total 200 ml Tube Feeding 541 ml Other 950 ml 100 ml Output Urine Total 1375 ml 1300 ml # Bowel Movements 0 Vital Signs Date Time Temp Pulse Resp B/P Pulse Ox O2 Delivery O2 Flow Rate FiO2 09/09/16 12:15 98.6 73 16 133/74 100 09/09/16 09:57 74 09/09/16 09:35 99 T-Piece 5.00 28 Humidified 09/09/16 08:08 98.1 73 16 131/75 99 09/09/16 07:53 99 T-piece 5.00 28 09/09/16 04:00 97.2 74 20 157/81 99 09/09/16 00:00 97.7 63 20 148/82 100 09/08/16 21:30 98 T-piece 5.00 09/08/16 20:00 67 09/08/16 20:00 96.8 66 20 152/87 100 09/08/16 19:00 T-Piece 5.00 28 Humidified 09/08/16 18:06 74 09/08/16 16:03 97.2 68 17 138/78 99 09/08/16 14:17 100 T-piece 5.00 28 -: 09/07/16 0919 09/08/16 1011 Tubes & Lines: Chacon Physical Exam General Appearance: Well Developed, No Acute Distress, Obese Eyes Eye Exam: Pupils Equal Throat Throat Exam: Oral Mucosa [place] & Moist Pulmonary Resp Exam: Breath Sounds Equal, Crackles, Rhonchi Cardiology CV Exam: Regular, Normal Sinus Rhythm, Good Perfusion Gastrointestinal/Abdomen GI Exam: Non-Tender, Bowel Sounds Present Musculoskeletal MS Exam: Joints Intact, Normal Tone, Unable to Ambulate Integumentary Skin Exam: Clear, Warm, Dry, Intact Extremeties Extremities Exam: Pedal Pulses Palpable, Trace Edema Neurologic Neuro Exam: Awake, Obtunded Assessment/Plan Discussed Condition With: Daughter Assessment Summary: CHRIS/Acute Renal Failure, Acute Tubular Necrosis, Fluid/ Volume Overload, Proteinuria, Hypertension, CKD Stage IV Electrolyte Assessment: Hypernatremia Problem List: (1) Acute worsening of stage 4 chronic kidney disease Plan: Creatinine still at CKD 4 Stage Hyperkalemia was treated UOP 2.5 L good response to Lasix 20 mg Na 134 decrease water flushes q 6 follow BMP periodically Nephrology to follow less frequently (2) Hypernatremia Plan: Continue free water, change 300 Q 6 Use Lasix (3) Hypertensive emergency Plan: BP is stable continue oral medications avoid NEGRITO due to CHRIS and angioedema (4) Thalamic hemorrhage Plan: due to hypertensive crisis neurosurgery non surgical management (5) Respiratory failure Plan: s/p trach with T piece appreciate respiratory therapy assistance (6) Anemia, unspecified Plan: Hb stable, Problem Qualifiers (1) Respiratory failure: Qualified Code: J96.00 - Acute respiratory failure, unspecified whether with hypoxia or hypercapnia Bettie Pepper MD Sep 09, 2016 13:29
--- NOTE | 2016-09-09 18:36 | HHI.PR ---
Subjective Remarks ass: IC BLEED S/P TRACH NO DISTRESS tongue swelling seems less now on med floor Objective Vital Signs Date Time Temp Pulse Resp B/P Pulse Ox O2 Delivery O2 Flow Rate FiO2 09/09/16 16:10 98.3 70 16 128/77 100 09/09/16 12:15 98.6 73 16 133/74 100 09/09/16 09:57 74 09/09/16 09:35 99 T-Piece 5.00 28 Humidified 09/09/16 08:08 98.1 73 16 131/75 99 09/09/16 07:53 99 T-piece 5.00 28 09/09/16 04:00 97.2 74 20 157/81 99 09/09/16 00:00 97.7 63 20 148/82 100 09/08/16 21:30 98 T-piece 5.00 09/08/16 20:00 67 09/08/16 20:00 96.8 66 20 152/87 100 09/08/16 19:00 T-Piece 5.00 28 Humidified I/O 09/08/16 09/08/16 09/08/16 09/09/16 09/09/16 09/09/16 07:00 15:00 23:00 07:00 15:00 23:00 Intake Total 577 ml 1791 ml 200 ml Output Total 700 ml 1375 ml 500 ml 800 ml 1000 ml Balance -123 ml -1375 ml 1291 ml -800 ml -800 ml IV Total 200 ml 200 ml Tube Feeding 277 ml 541 ml Other 300 ml 1050 ml Output Urine Total 700 ml 1375 ml 500 ml 800 ml 1000 ml # Bowel Movements 0 0 Result Diagram: 09/07/16 0919 09/08/16 1011 Procedures Endotracheal Intubation and extubation Tracheostomy PEG tube placement. Objective Remarks GENERAL: SKIN: Warm and dry. HEAD: Atraumatic. Normocephalic. tongue protruding EYES: Pupils equal and round. No scleral icterus. No injection or drainage. ENT: No nasal bleeding or discharge. Mucous membranes pink and moist. NECK: Trachea midline. trach in place . CARDIOVASCULAR: Regular rate and rhythm. RESPIRATORY: No accessory muscle use. Clear to auscultation. Breath sounds equal bilaterally. GASTROINTESTINAL: Abdomen soft, non-tender, nondistended. Hepatic and splenic margins not palpable. MUSCULOSKELETAL: Extremities without clubbing, cyanosis, or edema. No obvious deformities. NEUROLOGICAL: Awake and alert. No obvious cranial nerve deficits. Motor grossly within normal limits. Five out of 5 muscle strength in the arms and legs. Normal speech. PSYCHIATRIC: Appropriate mood and affect; insight and judgment normal. Assessment and Plan Assessment and Plan ass respiratory failure S/P IC bleed S/P Tracheostomy plan: O2 as needed pulmonary toilet WILL KEEP TRACH IN [place] TONGUE IS OBSTRUCTING AIRWAY Bianca Valenzuela MD Sep 09, 2016 18:36
[2016-09-10] VITALS (9 sets, daily range): BP systolic 125–153; BP diastolic 76–88; PULSE 68–77; RESP 16–20; TEMP 96.7–97.9; O2SAT 96–100
[2016-09-10] MEDS: NIFEdipine 10 MG CAP PO SCH ×4 (01:59→17:37)
[2016-09-10] MEDS: CHLORHEXIDINE GLUCONATE 2 % 1 PACK (2 CLOTHS) TOP SCH (04:00)
[2016-09-10] MEDS: diphenhydrAMINE HCL 50 MG/ML VIAL IV SCH ×4 (06:00→22:34)
[2016-09-10] MEDS: METOPROLOL TARTRATE 25 MG TAB PO SCH ×3 (06:01→22:21)
[2016-09-10] MEDS: HEPARIN SODIUM - SQ 10,000 UNITS/ML VIAL SQ SCH ×3 (06:01→22:21)
[2016-09-10] MEDS: hydrALAZINE HCL 100 MG TAB PO SCH ×3 (06:01→22:20)
[2016-09-10] MEDS: cloNIDine HCL 0.2 MG TAB PO SCH ×3 (06:01→22:21)
[2016-09-10] MEDS: INSULIN NovoLIN REGULAR SUPPLEMENTAL SCALE SQ SCH ×4 (06:52→22:30)
--- NOTE | 2016-09-10 08:26 | HHI.PR ---
Subjective Remarks This is a pleasant 56 y/o Female who came to ER with right sided weakness, non verbal, CT brain with left basal ganglia hemorrhagic stroke. She was intubated by an ER attending for an airway protection admitted to ICU. on 08/20/16 had fever and Leukocytosis, started on Zosyn blood cultures performed, Nephrology specialist following, with diagnosis of Acute Kidney Injury on chronic kidney Disease stage IV, May need Dialysis, Hypernatremia on free water intake, Hypertensive Emergency BP stable, to avoid RODGER inhibitors due to worsening renal function and Angioedema. 09/03: Increased volume of her tongue, will need to continue Steroids 09/04: Seen in her bedroom in the presence of her Mr. Cliff Richey , she is improving tongue swelling from yesterday will continue same dose of Prednisone, even her blood sugar is increased will try to titrate down as soon as possible, her Insulin Levemir was Increased and also her Blood sugar checks frequency, working with Physical therapy. 09/05: Improving her tongue edema, discussed for more than 15 minutes with her Mr. Cliff Richey, he wants a letter for his Insurance will evaluate the kind of document he needs with Credit Collector in am tomorrow. adjusted Insulin management. 09/06: Stable seen with female nurse in her bedroom and Respiratory Therapy specialist, asking for removal of stitches on her Tracheostomy. 09/07: Patient Alert and oriented x 3 helping with her management, improving tongue edema, but still continue edematous, uncontrolled blood sugar to continue present care, adjusted insulin and following. 09/08; Seen in her bedroom, Improving her Tongue swelling discussed with nurse to try to push the tongue inside her mouth to avoid more trauma from the patient, continue working with PT and OT, needs prison [facility] after we may get rid of the Tracheostomy tube. 09/09: Stable in her bedroom, seen in the presence of nurse Miss Nino improving her Tongue edema, also discussed about the need to place an anterior barrier for her tongue to try to avoid trauma. 09/10: Stable in her bedroom no changes to anterior assessment, awaiting for Decannulation for discharge to Rehab. continue with mild edema on the tongue, and uncontrolled blood sugar adjusted. Objective Vital Signs Date Time Temp Pulse Resp B/P Pulse Ox O2 Delivery O2 Flow Rate FiO2 09/10/16 04:00 97.9 68 20 125/76 96 09/10/16 00:23 100 T-Piece 5.00 28 Humidified 09/10/16 00:00 97.2 74 20 133/79 96 09/09/16 20:00 96.5 73 20 136/72 99 09/09/16 19:30 98 T-piece 5.00 28 09/09/16 16:10 98.3 70 16 128/77 100 09/09/16 12:15 98.6 73 16 133/74 100 09/09/16 09:57 74 09/09/16 09:35 99 T-Piece 5.00 28 Humidified I/O 09/09/16 09/09/16 09/09/16 09/10/16 09/10/16 09/10/16 07:00 15:00 23:00 07:00 15:00 23:00 Intake Total 200 ml 280 ml Output Total 800 ml 1000 ml 425 ml 1100 ml Balance -800 ml -800 ml -145 ml -1100 ml IV Total 200 ml Tube Feeding 280 ml Output Urine Total 800 ml 1000 ml 425 ml 1100 ml # Bowel Movements 0 1 Result Diagram: 09/07/16 0919 09/08/16 1011 Imaging Last Impressions Chest X-Ray 09/04/16 0000 Signed Impressions: Service Date/Time: August 15:08 - CONCLUSION: Underinflated examination. No acute cardiopulmonary abnormality is identified. Estrada Busch MD Renal Ultrasound 08/18/16 0000 Signed Impressions: Service Date/Time: Thursday, August 18, 2016 20:22 - CONCLUSION: 1. Small echogenic kidneys typical of chronic parenchymal disease. No evidence of obstructive uropathy or other acute renal abnormality. 2. Chacon in the bladder, grossly unremarkable. 3. Apparent small retroperitoneal free fluid, etiology uncertain. Estrada Dunham MD Abdomen X-Ray 08/16/16 0000 Signed Impressions: Service Date/Time: Tuesday, August 16, 2016 08:05 - CONCLUSION: Is a chest tube tip in stomach. Side port in the region of the gastroesophageal junction. Jhony Kirkpatrick MD Head CT 08/13/16 0800 Signed Impressions: Service Date/Time: Saturday, August 13, 2016 04:37 - CONCLUSION: Stable brain appearance Estrada Snow MD Procedures Endotracheal Intubation and extubation Tracheostomy PEG tube placement. Other Results Laboratory Tests Test 09/07/16 09/08/16 09:19 10:11 White Blood Count 14.2 TH/MM3 Red Blood Count 3.39 MIL/MM3 Hemoglobin 10.2 GM/DL Hematocrit 30.3 % Mean Corpuscular Volume 89.5 FL Mean Corpuscular Hemoglobin 30.0 PG Mean Corpuscular Hemoglobin 33.5 % Concent Red Cell Distribution Width 14.9 % Platelet Count 239 TH/MM3 Mean Platelet Volume 10.0 FL Neutrophils (%) (Auto) 81.7 % Lymphocytes (%) (Auto) 9.2 % Monocytes (%) (Auto) 7.2 % Eosinophils (%) (Auto) 1.6 % Basophils (%) (Auto) 0.3 % Neutrophils # (Auto) 11.6 TH/MM3 Lymphocytes # (Auto) 1.3 TH/MM3 Monocytes # (Auto) 1.0 TH/MM3 Eosinophils # (Auto) 0.2 TH/MM3 Basophils # (Auto) 0.0 TH/MM3 CBC Comment DIFF FINAL Differential Comment Magnesium Level 3.2 MG/DL Sodium Level 134 MEQ/L Potassium Level 3.8 MEQ/L Chloride Level 94 MEQ/L Carbon Dioxide Level 30.2 MEQ/L Anion Gap 10 MEQ/L Blood Urea Nitrogen 77 MG/DL Creatinine 3.46 MG/DL Estimat Glomerular Filtration 16 ML/MIN Rate Random Glucose 274 MG/DL Calcium Level 9.2 MG/DL Objective Remarks GENERAL: NAD, A&Ox0. HEAD: Normocephalic. Angioedema tongue present Improving. NECK: Supple, trachea midline. No lymphadenopathy. Tracheostomy present EYES: No scleral icterus. No injection or drainage. CARDIOVASCULAR: Regular rate and rhythm without murmurs, gallops, or rubs. RESPIRATORY: Breath sounds equal bilaterally. No accessory muscle use. GASTROINTESTINAL: Abdomen soft, non-tender, nondistended. PEG tube in place. MUSCULOSKELETAL: No cyanosis, or edema. SKIN: Warm and dry. NEURO: Alert, oriented x 3. Medications and IVs Current Medications Medications (Trade) Dose Ordered Sig/Jones Route Start Time Stop Time Status Last Admin (NS Flush) 2 ml UNSCH PRN .XX 08/12/16 18:30 (NS Flush) 2 ml BID .XX 08/12/16 21:00 09/09/16 23:44 (Tylenol) 650 mg Q6H PRN PO 08/12/16 18:30 09/07/16 14:51 Miscellaneous Information 1 Q361D XX 08/12/16 18:30 (Chlorhexidine 2% Cloth) Taper DAILY@04 TOP 08/13/16 04:00 08/09/17 03:59 09/04/16 04:07 (Chlorhexidine 2% Cloth) 3 pack UNSCH PRN TOP 08/12/16 18:30 (Adele-Colace) 1 tab BID PO 08/12/16 21:00 09/09/16 22:59 (Milk Of Magnesia Liq) 30 ml Q12H PRN PO 08/12/16 18:30 09/06/16 16:26 (Senokot) 17.2 mg Q12H PRN PO 08/12/16 18:30 08/23/16 05:10 (Dulcolax Supp) 10 mg DAILY PRN RECTAL 08/12/16 18:30 08/23/16 09:14 (Lactulose Liq) 30 ml DAILY PRN PO 08/12/16 18:30 08/23/16 09:14 (Apresoline Inj) 20 mg Q4H PRN IV PUSH 08/12/16 20:30 09/04/16 09:00 (Apresoline) 100 mg Q8HR PO 08/16/16 07:30 09/10/16 06:01 (Procardia) 10 mg Q6HR PO 08/19/16 12:00 09/10/16 06:01 Terbutaline Sulfate 1 mg 1 mg UNSCH PRN SQ 08/19/16 07:00 (Rocephin Inj/NS Inj) 100 ml @ 200 mls/hr Q24H IV 08/22/16 11:00 09/09/16 11:56 (Benadryl Inj) 50 mg Q6H IV 08/23/16 05:00 09/10/16 06:00 (Pepcid Inj) 10 mg Q12HR IV PUSH 08/23/16 21:00 09/09/16 23:01 (Heparin Inj) 5,000 units Q8HR SQ 08/24/16 14:00 09/10/16 06:01 (Catapres) 0.4 mg Q8HR PO 08/26/16 14:00 09/10/16 06:01 (Lopressor) 25 mg Q8HR PO 08/26/16 08:00 09/10/16 06:01 (Dilaudid Pf Inj) 0.5 mg Q4H PRN IV PUSH 08/28/16 08:15 09/03/16 16:41 (Catapres-Tts 0.3 Mg Patch.7d) 1 patch Q7D T-DERMAL 08/28/16 13:00 09/04/16 12:27 Miscellaneous Information 1 Q7D T-DERMAL 09/04/16 13:00 09/04/16 13:00 (Lasix Inj) 20 mg DAILY IV PUSH 09/06/16 09:00 09/09/16 09:28 (D50w (Vial) Inj) 50 ml UNSCH PRN IV 09/05/16 21:30 (Glucagon Inj) 1 mg UNSCH PRN OTHER 09/05/16 21:30 (Free Water) 300 ml QID G-TUBE 09/07/16 13:00 09/09/16 23:45 (predniSONE LIQ) 30 mg DAILY PEG 09/09/16 09:00 09/09/16 09:14 (Levemir Inj) 30 units Q12HR SQ 09/09/16 09:00 09/09/16 21:00 A/P Assessment and Plan 56-year-old female admitted secondary to basal ganglia hemorrhage related to hypertension. Status post lisinopril reaction with angioedema. Also admitted related to hypertensive urgency. Angioedema is improving slowly. Acute blood loss discovered last afternoon. Patient transfused 3 units of packed red blood cells 08/30/16. Acute blood loss anemia Hemoglobin 10.2 Status post 3 units of packed red blood cells transfused 08/30/16. follow for tomorrow with Hemoglobin and Hematocrit Status post basal ganglia hemorrhage Persistent respiratory failure client relation specialist following Encephalopathy Improved. Acute hemorrhagic basal ganglia stroke Acute encephalopathy Maintain blood pressure control with systolic goal less than 160 mmHg Follow neurological status Neurosurgeon no further management. Physical therapy Occupational therapy Out of bed to chair as tolerated Acute hypoxic respiratory failure Hypercarbic respiratory failure Tracheostomy present Continue oxygenation via tracheostomy Tracheostomy care Pulmonary toilet Wean FiO2 as tolerated When necessary and scheduled nebulized treatments Pulmonology following Severe Angioedema Improving. Secondary to lisinopril Avoid Rodger inhibitors Prednisone 30 mg daily Continue Pepcid Continue Benadryl Follow for improvement Hypertension Recent hypertensive urgency controlled. Continue metoprolol Continue hydralazine Continue clonidine Continue nifedipine Avoid lisinopril as patient has allergy to this. Acute on chronic renal failure CKD stage IV creatinine trending down creatinine trending down, Nephrology following, may need Hemodialysis. Monitor I's and O's Maintain Chacon catheter Decreased Lasix Dose by Nephrology specialist. Hypernatremia/Hyperkalemia Improved. free water 300 ml every four hours. Acute protein calorie malnutrition Continue tube feedings Follow albumin MSSA pneumonia Treatment completed Escherichia coli UTI Treated with Rocephin 1 GM Daily Diabetes mellitus type 2 Uncontrolled Continue Levemir 32 units every 12 hours Sliding scale insulin Moderate every four hours. continue tube feedings adjusted Insulin with the decreased dose of Prednisone expected to decrease Sugar level . follow closely. DVT prophylaxis SCDs and subcutaneous heparin GI prophylaxis Pepcid Lines: Peripheral IV Chacon catheter Discussed with patient and nurse Miss Mckinley, all questions answered to the best of my abilities. Discharge Planning Not yet cleared for discharge. Rick Barba MD Sep 10, 2016 08:26
[2016-09-10] MEDS: FREE WATER G-TUBE SCH ×4 (09:00→21:00)
[2016-09-10] MEDS: DOCUSATE SODIUM 50 MG/SENNA 8.6 MG TAB PO SCH ×2 (10:04→22:21)
[2016-09-10] MEDS: FUROSEMIDE 20 MG/2 ML VIAL IV PUSH SCH (10:05)
[2016-09-10] MEDS: SODIUM CHLORIDE 0.9% FLUSH 10 ML FLUSH SCH ×2 (10:06→22:20)
[2016-09-10] MEDS: FAMOTIDINE 20 MG/2 ML VIAL IV PUSH SCH ×2 (10:07→22:20)
[2016-09-10] MEDS: INSULIN DETEMIR 100 UNITS/ML VIAL SQ SCH ×2 (10:34→22:30)
[2016-09-10] MEDS: predniSONE 5 MG/5 ML CUP PEG SCH (11:16)
[2016-09-10] MEDS: cefTRIAXone INJ 1,000 MG in SODIUM CHLORIDE 0.9% INJ 100 ML IV SCH (11:31)
--- NOTE | 2016-09-10 18:05 | HHI.PR ---
Subjective Remarks ass: IC BLEED S/P TRACH NO DISTRESS tongue swelling seems less now on med floor Objective Vital Signs Date Time Temp Pulse Resp B/P Pulse Ox O2 Delivery O2 Flow Rate FiO2 09/10/16 17:57 T-piece 6.00 28 09/10/16 16:03 96.9 73 16 153/88 99 09/10/16 12:11 97.4 70 16 143/81 100 09/10/16 10:57 99 T-piece 28 09/10/16 08:08 97.6 76 16 148/78 100 09/10/16 08:00 T-Piece 5.00 28 Humidified 09/10/16 04:00 97.9 68 20 125/76 96 09/10/16 00:23 100 T-Piece 5.00 28 Humidified 09/10/16 00:00 97.2 74 20 133/79 96 09/09/16 20:00 96.5 73 20 136/72 99 09/09/16 19:30 98 T-piece 5.00 28 I/O 09/09/16 09/09/16 09/09/16 09/10/16 09/10/16 09/10/16 07:00 15:00 23:00 07:00 15:00 23:00 Intake Total 200 ml 280 ml Output Total 800 ml 1000 ml 425 ml 1100 ml 1100 ml Balance -800 ml -800 ml -145 ml -1100 ml -1100 ml IV Total 200 ml Tube Feeding 280 ml Output Urine Total 800 ml 1000 ml 425 ml 1100 ml 1100 ml # Bowel Movements 0 1 0 Result Diagram: 09/07/16 0919 09/08/16 1011 Procedures Endotracheal Intubation and extubation Tracheostomy PEG tube placement. Objective Remarks GENERAL: SKIN: Warm and dry. HEAD: Atraumatic. Normocephalic. tongue protruding EYES: Pupils equal and round. No scleral icterus. No injection or drainage. ENT: No nasal bleeding or discharge. Mucous membranes pink and moist. NECK: Trachea midline. trach in place . CARDIOVASCULAR: Regular rate and rhythm. RESPIRATORY: No accessory muscle use. Clear to auscultation. Breath sounds equal bilaterally. GASTROINTESTINAL: Abdomen soft, non-tender, nondistended. Hepatic and splenic margins not palpable. MUSCULOSKELETAL: Extremities without clubbing, cyanosis, or edema. No obvious deformities. NEUROLOGICAL: Awake and alert. No obvious cranial nerve deficits. Motor grossly within normal limits. Five out of 5 muscle strength in the arms and legs. Normal speech. PSYCHIATRIC: Appropriate mood and affect; insight and judgment normal. Assessment and Plan Assessment and Plan ass respiratory failure S/P IC bleed S/P Tracheostomy plan: O2 as needed pulmonary toilet WILL KEEP TRACH IN [place] TONGUE IS OBSTRUCTING AIRWAY Bianca Valenzuela MD Sep 10, 2016 18:05
[2016-09-11] VITALS (10 sets, daily range): BP systolic 103–146; BP diastolic 61–83; PULSE 56–71; RESP 16–20; TEMP 95.5–98.6; O2SAT 96–100
[2016-09-11] MEDS: NIFEdipine 10 MG CAP PO SCH ×2 (00:43→06:15)
[2016-09-11] MEDS: CHLORHEXIDINE GLUCONATE 2 % 1 PACK (2 CLOTHS) TOP SCH (04:00)
[2016-09-11] MEDS: HEPARIN SODIUM - SQ 10,000 UNITS/ML VIAL SQ SCH ×3 (05:58→22:00)
[2016-09-11] MEDS: diphenhydrAMINE HCL 50 MG/ML VIAL IV SCH ×4 (05:59→22:03)
[2016-09-11] MEDS: METOPROLOL TARTRATE 25 MG TAB PO SCH (06:06)
[2016-09-11] MEDS: cloNIDine HCL 0.2 MG TAB PO SCH (06:07)
[2016-09-11] MEDS: hydrALAZINE HCL 100 MG TAB PO SCH (06:07)
[2016-09-11] MEDS: INSULIN NovoLIN REGULAR SUPPLEMENTAL SCALE SQ SCH ×4 (06:28→21:00)
[2016-09-11 08:08] LABS: HEMATOCRIT 30.4 % (35.0-46.0)
[2016-09-11 08:40] LABS: BICARBONATE 29.2 MEQ/L (21.0-32.0); POTASSIUM 3.5 MEQ/L (3.5-5.1)
[2016-09-11] MEDS: predniSONE 5 MG/5 ML CUP PEG SCH (08:43)
[2016-09-11] MEDS: SODIUM CHLORIDE 0.9% FLUSH 10 ML FLUSH SCH ×2 (08:44→22:22)
[2016-09-11] MEDS: FAMOTIDINE 20 MG/2 ML VIAL IV PUSH SCH (08:44)
[2016-09-11] MEDS: FUROSEMIDE 20 MG/2 ML VIAL IV PUSH SCH (08:44)
[2016-09-11] MEDS: FREE WATER G-TUBE SCH ×4 (08:44→21:00)
[2016-09-11] MEDS: DOCUSATE SODIUM 50 MG/SENNA 8.6 MG TAB PO SCH (08:44)
[2016-09-11] MEDS: DOCUSATE SODIUM 50 MG/SENNA 8.6 MG TAB G-TUBE SCH ×2 (09:33→22:01)
[2016-09-11] MEDS: INSULIN DETEMIR 100 UNITS/ML VIAL SQ SCH (09:33)
[2016-09-11] MEDS ORDERED: PILL SPLITTER OTHER PRN (11:30)
--- NOTE | 2016-09-11 12:06 | HHI.NPPN ---
Subjective General Problems: Edema Renal Failure: Acute Review of Systems General General Remarks unable to obtain Ears, Nose, & Throat ENT Remarks tongue swelling Objective Data Data 09/10/16 09/11/16 19:00 07:00 Intake Total 480 ml Output Total 1100 ml 900 ml Balance -1100 ml -420 ml Tube Feeding 480 ml Output Urine Total 1100 ml 900 ml # Bowel Movements 0 Vital Signs Date Time Temp Pulse Resp B/P Pulse Ox O2 Delivery O2 Flow Rate FiO2 09/11/16 08:50 99 T-piece 28 09/11/16 08:20 99 Trach Collar 5.00 28 09/11/16 08:16 95.5 71 20 109/69 100 09/11/16 07:00 71 09/11/16 04:08 97.4 66 18 108/61 99 09/11/16 00:58 97.8 56 18 146/83 100 09/11/16 00:38 T-Piece 5.00 28 09/10/16 23:00 72 09/10/16 20:25 96.7 70 18 129/78 100 09/10/16 17:57 T-piece 6.00 28 09/10/16 16:03 96.9 73 16 153/88 99 09/10/16 12:11 97.4 70 16 143/81 100 -: 09/11/16 0742 09/11/16 0742 Tubes & Lines: Chacon Physical Exam General Appearance: Well Developed, No Acute Distress, Obese Eyes Eye Exam: Pupils Equal Throat Throat Exam: Oral Mucosa [place] & Moist Pulmonary Resp Exam: Breath Sounds Equal, Crackles, Rhonchi Cardiology CV Exam: Regular, Normal Sinus Rhythm, Good Perfusion Gastrointestinal/Abdomen GI Exam: Non-Tender, Bowel Sounds Present Musculoskeletal MS Exam: Joints Intact, Normal Tone, Unable to Ambulate Integumentary Skin Exam: Clear, Warm, Dry, Intact Extremeties Extremities Exam: Pedal Pulses Palpable, Trace Edema Neurologic Neuro Exam: Awake, Obtunded Assessment/Plan Discussed Condition With: Daughter Assessment Summary: CHRIS/Acute Renal Failure, Acute Tubular Necrosis, Fluid/ Volume Overload, Proteinuria, Hypertension, CKD Stage IV Electrolyte Assessment: Hypernatremia Problem List: (1) Acute worsening of stage 4 chronic kidney disease Plan: Creatinine Cr higher 3.9 stop Lasix Hyperkalemia resolved UOP good Na 135 decrease water flushes 250 cc q 6 follow BMP periodically Nephrology to follow less frequently (2) Hypernatremia Plan: Continue free water, change 250 Q 6 Use Lasix (3) Hypertensive emergency Plan: BP is stable continue oral medications avoid NEGRITO due to CHRIS and angioedema (4) Thalamic hemorrhage Plan: due to hypertensive crisis neurosurgery non surgical management (5) Respiratory failure Plan: s/p trach with T piece appreciate respiratory therapy assistance (6) Anemia, unspecified Plan: Hb stable, Problem Qualifiers (1) Respiratory failure: Qualified Code: J96.00 - Acute respiratory failure, unspecified whether with hypoxia or hypercapnia Bettie Pepper MD Sep 11, 2016 12:06
[2016-09-11] MEDS: REMOVE OLD CATAPRES (CLONIDINE) PATCH T-DERMAL SCH (12:29)
[2016-09-11] MEDS: cloNIDine HCL 0.3 MG/24 HR PATCH T-DERMAL SCH (12:29)
[2016-09-11] MEDS ORDERED: ACETAMINOPHEN 325 MG TAB G-TUBE PRN (12:30)
[2016-09-11] MEDS: NIFEdipine 10 MG CAP NG SCH ×2 (12:33→17:13)
[2016-09-11] MEDS: hydrALAZINE HCL 100 MG TAB G-TUBE SCH ×2 (15:15→22:01)
[2016-09-11] MEDS: cloNIDine HCL 0.2 MG TAB G-TUBE SCH ×2 (15:15→22:00)
[2016-09-11] MEDS: METOPROLOL TARTRATE 25 MG TAB G-TUBE SCH ×2 (15:15→22:01)
[2016-09-11] MEDS: glipiZIDE 5 MG TAB G-TUBE SCH (15:16)
--- NOTE | 2016-09-11 15:51 | HHI.PR ---
Subjective Remarks ass: IC BLEED S/P TRACH NO DISTRESS tongue swelling seems less now on med floor Objective Vital Signs Date Time Temp Pulse Resp B/P Pulse Ox O2 Delivery O2 Flow Rate FiO2 09/11/16 12:33 98.6 70 20 103/69 100 09/11/16 08:50 99 T-piece 28 09/11/16 08:20 99 Trach Collar 5.00 09/11/16 08:16 95.5 71 20 109/69 100 09/11/16 07:00 71 09/11/16 04:08 97.4 66 18 108/61 99 09/11/16 00:58 97.8 56 18 146/83 100 09/11/16 00:38 T-Piece 5.00 28 09/10/16 23:00 72 09/10/16 20:25 96.7 70 18 129/78 100 09/10/16 17:57 T-piece 6.00 09/10/16 16:03 96.9 73 16 153/88 99 I/O 09/10/16 09/10/16 09/10/16 09/11/16 09/11/16 09/11/16 07:00 15:00 23:00 07:00 15:00 23:00 Intake Total 480 ml 1000 ml Output Total 1100 ml 1100 ml 900 ml 1350 ml Balance -1100 ml -1100 ml -900 ml 480 ml -350 ml Tube Feeding 480 ml 400 ml Other 600 ml Output Urine Total 1100 ml 1100 ml 900 ml 1350 ml # Bowel Movements 0 Result Diagram: 09/11/1642 09/11/1642 Procedures Endotracheal Intubation and extubation Tracheostomy PEG tube placement. Objective Remarks GENERAL: SKIN: Warm and dry. HEAD: Atraumatic. Normocephalic. tongue protruding EYES: Pupils equal and round. No scleral icterus. No injection or drainage. ENT: No nasal bleeding or discharge. Mucous membranes pink and moist. NECK: Trachea midline. trach in place . CARDIOVASCULAR: Regular rate and rhythm. RESPIRATORY: No accessory muscle use. Clear to auscultation. Breath sounds equal bilaterally. GASTROINTESTINAL: Abdomen soft, non-tender, nondistended. Hepatic and splenic margins not palpable. MUSCULOSKELETAL: Extremities without clubbing, cyanosis, or edema. No obvious deformities. NEUROLOGICAL: Awake and alert. No obvious cranial nerve deficits. Motor grossly within normal limits. Five out of 5 muscle strength in the arms and legs. Normal speech. PSYCHIATRIC: Appropriate mood and affect; insight and judgment normal. Assessment and Plan Assessment and Plan ass respiratory failure S/P IC bleed S/P Tracheostomy plan: O2 as needed pulmonary toilet WILL KEEP TRACH IN [place] TONGUE IS OBSTRUCTING AIRWAY ok for d/c to [facility] facility office i month to address tracheostomy Bianca Valenzuela MD Sep 11, 2016 15:51
[2016-09-11 16:15] LABS: HEMOGLOBIN A1a 1.1 %; HEMOGLOBIN Ao 82.3 %; HEMOGLOBIN LA1C 2.6 %; HEMOGLOBIN P3 6.7 %
--- NOTE | 2016-09-11 17:43 | HHI.PR ---
Subjective Remarks Follow-up for left basal ganglia hemorrhagic stroke, Dm, and angioedema. Pt with tracheostomy, non-verbal. Yes/No responses seemed accurate. Pt denied fever, pain, cough, shortness of breath, NVD. Per pt's RN (Teresita) pt has bitten her tongue and evidencing right arm swelling from previous IV site. Objective Vitals Vital Signs Date Time Temp Pulse Resp B/P Pulse Ox O2 Delivery O2 Flow Rate FiO2 09/11/16 16:15 97.6 71 20 112/68 100 09/11/16 12:33 98.6 70 20 103/69 100 09/11/16 08:50 99 T-piece 28 09/11/16 08:20 99 Trach Collar 5.00 28 09/11/16 08:16 95.5 71 20 109/69 100 09/11/16 07:00 71 09/11/16 04:08 97.4 66 18 108/61 99 09/11/16 00:58 97.8 56 18 146/83 100 09/11/16 00:38 T-Piece 5.00 28 Humidified 09/10/16 23:00 72 09/10/16 20:25 96.7 70 18 129/78 100 09/10/16 17:57 T-piece 6.00 28 I/O 09/10/16 09/10/16 09/10/16 09/11/16 09/11/16 09/11/16 07:00 15:00 23:00 07:00 15:00 23:00 Intake Total 480 ml 1000 ml Output Total 1100 ml 1100 ml 900 ml 1350 ml Balance -1100 ml -1100 ml -900 ml 480 ml -350 ml Tube Feeding 480 ml 400 ml Other 600 ml Output Urine Total 1100 ml 1100 ml 900 ml 1350 ml # Bowel Movements 0 Result Diagram: 09/11/16 0742 09/11/16 0742 Imaging Last Impressions Chest X-Ray 09/04/16 0000 Signed Impressions: Service Date/Time: August 15:08 - CONCLUSION: Underinflated examination. No acute cardiopulmonary abnormality is identified. Estrada Busch MD Renal Ultrasound 08/18/16 0000 Signed Impressions: Service Date/Time: Thursday, August 18, 2016 20:22 - CONCLUSION: 1. Small echogenic kidneys typical of chronic parenchymal disease. No evidence of obstructive uropathy or other acute renal abnormality. 2. Chacon in the bladder, grossly unremarkable. 3. Apparent small retroperitoneal free fluid, etiology uncertain. Estrada Dunham MD Abdomen X-Ray 08/16/16 0000 Signed Impressions: Service Date/Time: Tuesday, August 16, 2016 08:05 - CONCLUSION: Is a chest tube tip in stomach. Side port in the region of the gastroesophageal junction. Jhony Kirkpatrick MD Head CT 08/13/16 0800 Signed Impressions: Service Date/Time: Saturday, August 13, 2016 04:37 - CONCLUSION: Stable brain appearance Estrada Snow MD Objective Remarks GENERAL: Pt laying abed, non-verbal, T-piece in place, NAD SKIN: Warm and dry. Lesion noted on dorsum on pt's right hand. HEAD: Normocephalic. Tongue evidenced bite magdaleno, gauze present (placed by nurse to prevent additional injury) EYES: No scleral icterus. No injection or drainage. NECK: Supple, trachea midline. CARDIOVASCULAR: Regular rate and rhythm without murmurs, gallops, or rubs. RESPIRATORY: Breath sounds equal bilaterally. No accessory muscle use. GASTROINTESTINAL: Abdomen soft, non-tender, nondistended. MUSCULOSKELETAL: No cyanosis, or edema. Left side moved on command, right side non-responsive to command. PSYCHIATRIC: Awake and alert, responds to commands. Medications and IVs Current Medications Medications (Trade) Dose Ordered Sig/Jones Route Start Time Stop Time Status Last Admin (NS Flush) 2 ml UNSCH PRN .XX 08/12/16 18:30 (NS Flush) 2 ml BID .XX 08/12/16 21:00 09/11/16 08:44 Miscellaneous Information 1 Q361D XX 08/12/16 18:30 (Chlorhexidine 2% Cloth) Taper DAILY@04 TOP 08/13/16 04:00 08/09/17 03:59 09/04/16 04:07 (Chlorhexidine 2% Cloth) 3 pack UNSCH PRN TOP 08/12/16 18:30 (Dulcolax Supp) 10 mg DAILY PRN RECTAL 08/12/16 18:30 08/23/16 09:14 (Lactulose Liq) 30 ml DAILY PRN PO 08/12/16 18:30 08/23/16 09:14 (Apresoline Inj) 20 mg Q4H PRN IV PUSH 08/12/16 20:30 09/04/16 09:00 (Brethine Inj) 1 mg UNSCH PRN SQ 08/19/16 07:00 (Benadryl Inj) 50 mg Q6H IV 08/23/16 05:00 09/11/16 17:12 (Heparin Inj) 5,000 units Q8HR SQ 08/24/16 14:00 09/11/16 15:16 (Dilaudid Pf Inj) 0.5 mg Q4H PRN IV PUSH 08/28/16 08:15 09/03/16 16:41 (Catapres-Tts 0.3 Mg Patch.7d) 1 patch Q7D T-DERMAL 08/28/16 13:00 09/11/16 12:29 Miscellaneous Information 1 Q7D T-DERMAL 09/04/16 13:00 09/11/16 12:29 (D50w (Vial) Inj) 50 ml UNSCH PRN IV 09/05/16 21:30 (Glucagon Inj) 1 mg UNSCH PRN OTHER 09/05/16 21:30 (predniSONE LIQ) 20 mg DAILY PEG 09/11/16 09:00 09/11/16 08:43 (Tylenol) 650 mg Q6H PRN G-TUBE 09/11/16 12:30 (Catapres) 0.4 mg Q8HR G-TUBE 09/11/16 14:00 09/11/16 15:15 (Adele-Colace) 1 tab BID G-TUBE 09/11/16 09:00 09/11/16 09:33 (Apresoline) 100 mg Q8HR G-TUBE 09/11/16 14:00 09/11/16 15:15 (Levemir Inj) 40 units DAILYAC SQ 09/11/16 09:00 09/11/16 09:33 (Lopressor) 25 mg Q8HR G-TUBE 09/11/16 14:00 09/11/16 15:15 (Procardia) 10 mg Q6HR NG 09/11/16 12:00 09/11/16 17:13 (Senokot) 17.2 mg Q12H PRN G-TUBE 09/11/16 18:30 (Pepcid) 10 mg BID G-TUBE 09/11/16 21:00 (Glucotrol) 5 mg BIDAC G-TUBE 09/11/16 16:00 09/11/16 15:16 (Pill Splitter) 1 ea UNSCH PRN OTHER 09/11/16 11:30 (Free Water) VOLUME OF WATER: ( 250 ) ML QID G-TUBE 09/11/16 13:00 09/11/16 17:13 Urinary Catheter: Yes Assessment to: Continue Chacon insert reason: Prolonged Immobilization A/P Problem List: (1) Hemorrhagic stroke ICD Code: I61.9 Status: Acute (2) Left basal ganglia hemorrhage Status: Acute (3) Acute respiratory failure ICD Code: J96.00 Status: Acute (4) HCAP (healthcare-associated pneumonia) ICD Code: J18.9 Status: Acute (5) Angioedema ICD Code: T78.3XXA Status: Acute (6) Hypertensive emergency ICD Code: I16.1 Status: Acute (7) Hypernatremia ICD Code: E87.0 Status: Acute (8) Acute kidney failure ICD Code: N17.9 Status: Acute Assessment and Plan 56-year-old female admitted secondary to basal ganglia hemorrhage related to hypertension. Status post lisinopril reaction with angioedema. Also admitted related to hypertensive urgency. Angioedema is improving slowly. Acute blood loss discovered last afternoon. Patient transfused 3 units of packed red blood cells 08/30/16. Acute blood loss anemia -Hemoglobin 10.2 -Status post 3 units of packed red blood cells transfused 08/30/16. follow for tomorrow with Hemoglobin and Hematocrit Status post basal ganglia hemorrhage -Persistent respiratory failure site acquisition specialist following -Encephalopathy Improved. Acute hemorrhagic basal ganglia stroke Acute encephalopathy -Maintain blood pressure control with systolic goal less than 160 mmHg -Follow neurological status -Neurosurgeon no further management. -Physical therapy -Occupational therapy -Out of bed to chair as tolerated Acute hypoxic respiratory failure Hypercarbic respiratory failure -Tracheostomy present -Continue oxygenation via tracheostomy -Tracheostomy care -Pulmonary toilet -Wean FiO2 as tolerated -When necessary and scheduled nebulized treatments -Pulmonology following Severe Angioedema Improving. -Secondary to lisinopril -Avoid Rodger inhibitors -Prednisone 20 mg daily x 3 days then decrease on 09/14 to 10mg x 3 days then discontinue. -Continue Pepcid -Continue Benadryl, change to PO from IV. -Follow for improvement Hypertension Recent hypertensive urgency controlled. -Continue metoprolol -Continue hydralazine -Continue clonidine -Continue nifedipine -Avoid lisinopril as patient has allergy to this. Acute on chronic renal failure CKD stage IV creatinine trending down -creatinine trending down, Nephrology following, may need Hemodialysis. -Monitor I's and O's -Maintain Chacon catheter -Decreased Lasix Dose by Nephrology specialist. Hypernatremia/Hyperkalemia Improved. -free water 300 ml every four hours. Acute protein calorie malnutrition -Continue tube feedings -Follow albumin MSSA pneumonia -Treatment completed Escherichia coli UTI -Treated with Rocephin 1 GM Daily Diabetes mellitus type 2 Uncontrolled -Levemir 40 units every morning and 30 units at bedtime -Sliding scale insulin Moderate every four hours. -continue tube feedings adjusted Insulin -with the decreased dose of Prednisone expected to decrease Sugar level . follow closely. DVT prophylaxis -SCDs and subcutaneous heparin GI prophylaxis -Pepcid Lines: -Peripheral IV -Chacon catheter Discussed with patient and nurse (Teresita) and Dr. Trevizo. Discharge Planning Pt cleared for discharge to SNF. Steffen Roe Jr. Sep 11, 2016 17:43
[2016-09-11] MEDS ORDERED: SENNOSIDES 8.6 MG TAB G-TUBE PRN (18:30)
--- NOTE | 2016-09-11 19:55 | RADRPT ---
EXAM DATE/TIME: 09/11/2016 19:09 [facility] COMPARISON: No previous studies available for comparison. INDICATIONS : Right arm swelling. MEDICAL HISTORY : Hypercholesterolemia. Hypertension. Arthritis. Cerebrovascular accident. Diabetes. Measles. Blood tra nsfusion. Intracranial hemorrhage. Chronic kidney disease. SURGICAL HISTORY : Tracheostomy. ENCOUNTER: Initial ACUITY: 1 day PAIN SCORE: 1/10 LOCATION: Right arm. FINDINGS: There is occlusive thrombus in the right cephalic vein at the wrist. Imaging was performed in the reg ion of the skin wound and edema there is a large complex fluid collection measuring 7.8 x 5.1 x 1.8 c m with increased surrounding vascularity. The right internal jugular vein, subclavian vein and axilla ry vein were patent and compressible. The basilic vein is patent. CONCLUSION: 1. Large complex fluid collection on the posterior hand and concern for abscess or seroma. 2. Superficial venous thrombus in the distal right cephalic vein at the level of the wrist. 3. No evidence of deep venous thrombosis. Amor Uriarte MD on September 11, 2016 at 19:50 Board Certified Radiologist. This report was verified electronically.
[2016-09-11] MEDS: FAMOTIDINE 20 MG TAB G-TUBE SCH (22:01)
[2016-09-12] VITALS (10 sets, daily range): BP systolic 108–147; BP diastolic 59–82; PULSE 68–92; RESP 18–20; TEMP 97.1–98.4; O2SAT 95–99
[2016-09-12] MEDS: NIFEdipine 10 MG CAP NG SCH ×4 (01:27→17:44)
[2016-09-12] MEDS: CHLORHEXIDINE GLUCONATE 2 % 1 PACK (2 CLOTHS) TOP SCH (04:00)
[2016-09-12] MEDS: cloNIDine HCL 0.2 MG TAB G-TUBE SCH ×3 (05:44→21:47)
[2016-09-12] MEDS: hydrALAZINE HCL 100 MG TAB G-TUBE SCH ×3 (05:44→21:47)
[2016-09-12] MEDS: glipiZIDE 5 MG TAB G-TUBE SCH ×2 (05:44→16:00)
[2016-09-12] MEDS: METOPROLOL TARTRATE 25 MG TAB G-TUBE SCH ×3 (05:44→21:47)
[2016-09-12] MEDS: HEPARIN SODIUM - SQ 10,000 UNITS/ML VIAL SQ SCH ×3 (05:45→21:47)
[2016-09-12] MEDS: diphenhydrAMINE HCL 50 MG/ML VIAL IV SCH ×3 (05:47→16:32)
[2016-09-12] MEDS: INSULIN NovoLIN REGULAR SUPPLEMENTAL SCALE SQ SCH ×4 (06:05→21:49)
[2016-09-12] MEDS: FREE WATER G-TUBE SCH ×4 (09:01→21:00)
[2016-09-12] MEDS: predniSONE 5 MG/5 ML CUP PEG SCH (09:01)
[2016-09-12] MEDS: SODIUM CHLORIDE 0.9% FLUSH 10 ML FLUSH SCH ×2 (09:01→21:47)
[2016-09-12] MEDS: DOCUSATE SODIUM 50 MG/SENNA 8.6 MG TAB G-TUBE SCH ×2 (09:01→21:47)
[2016-09-12] MEDS: INSULIN DETEMIR 100 UNITS/ML VIAL SQ SCH (09:02)
[2016-09-12] MEDS: FAMOTIDINE 20 MG TAB G-TUBE SCH ×2 (09:02→21:47)
[2016-09-12 09:23] LABS: AUTOMATED NEUTROPHIL # 10.1 TH/MM3 (1.8-7.7); BASOPHIL # 0.1 TH/MM3 (0-0.2); BASOPHIL % 0.4 % (0.0-2.0); EOSINOPHIL # 1.1 TH/MM3 (0-0.4); EOSINOPHIL % 8.1 % (0.0-4.0); HEMATOCRIT 30.4 % (35.0-46.0); LYMPH % 9.6 % (9.0-44.0); LYMPHOCYTE # 1.3 TH/MM3 (1.0-4.8); MEAN CELL VOLUME 90.3 FL (80.0-100.0); MEAN CORPUSCULAR HEMOGLOBIN 28.9 PG (27.0-34.0); MONO % 7.9 % (0.0-8.0); PLATELET COUNT 223 TH/MM3 (150-450); RED BLOOD COUNT 3.36 MIL/MM3 (4.00-5.30); RED CELL DISTRIBUTION WIDTH 14.7 % (11.6-17.2); WHITE BLOOD COUNT 13.7 TH/MM3 (4.0-11.0)
[2016-09-12 09:32] LABS: HEMO FLAGS AUTO DIFF
--- NOTE | 2016-09-12 09:57 | HHI.PR ---
Subjective Remarks Follow-up for left basal ganglia hemorrhagic stroke, Dm, and angioedema. Pt with tracheostomy, non-verbal. Yes/No responses seemed accurate. Tongue pain denied. Pt denied diabetes or taking medication for diabetes. Pt denied fever, pain, cough, shortness of breath, NVD. Per pt's RN (Teresita) no acute events over night and none have developed since start of shift. Objective Vitals Vital Signs Date Time Temp Pulse Resp B/P Pulse Ox O2 Delivery O2 Flow Rate FiO2 09/12/16 08:30 97.6 70 18 111/59 99 09/12/16 05:42 76 133/74 09/12/16 04:00 97.8 68 18 108/73 96 09/11/16 23:48 96.9 70 16 133/76 97 09/11/16 21:37 96 T-piece 21 09/11/16 20:36 97.9 71 18 134/79 100 09/11/16 20:00 99 Trach Collar 5.00 28 09/11/16 16:15 97.6 71 20 112/68 100 09/11/16 12:33 98.6 70 20 103/69 100 I/O 09/11/16 09/11/16 09/11/16 09/12/16 09/12/16 09/12/16 07:00 15:00 23:00 07:00 15:00 23:00 Intake Total 480 ml 1000 ml 562 ml Output Total 1350 ml 1200 ml Balance 480 ml -350 ml -638 ml Tube Feeding 480 ml 400 ml 562 ml Other 600 ml Output Urine Total 1350 ml 1200 ml # Bowel Movements 0 Result Diagram: 09/12/16 0839 09/11/16 0742 Imaging Last Impressions Upper Extremity Ultrasound 09/11/16 0000 Signed Impressions: Service Date/Time: August 19:09 - CONCLUSION: 1. Large complex fluid collection on the posterior hand and concern for abscess or seroma. 2. Superficial venous thrombus in the distal right cephalic vein at the level of the wrist. 3. No evidence of deep venous thrombosis. Amor Uriarte MD Chest X-Ray 09/04/16 0000 Signed Impressions: Service Date/Time: August 15:08 - CONCLUSION: Underinflated examination. No acute cardiopulmonary abnormality is identified. Estrada Busch MD Renal Ultrasound 08/18/16 0000 Signed Impressions: Service Date/Time: Thursday, August 18, 2016 20:22 - CONCLUSION: 1. Small echogenic kidneys typical of chronic parenchymal disease. No evidence of obstructive uropathy or other acute renal abnormality. 2. Chacon in the bladder, grossly unremarkable. 3. Apparent small retroperitoneal free fluid, etiology uncertain. Estrada Dunham MD Abdomen X-Ray 08/16/16 0000 Signed Impressions: Service Date/Time: Tuesday, August 16, 2016 08:05 - CONCLUSION: Is a chest tube tip in stomach. Side port in the region of the gastroesophageal junction. Jhony Kirkpatrick MD Head CT 08/13/16 0800 Signed Impressions: Service Date/Time: Saturday, August 13, 2016 04:37 - CONCLUSION: Stable brain appearance Estrada Snow MD Objective Remarks GENERAL: Pt laying abed, non-verbal, T-piece in place, NAD SKIN: Warm and dry. Lesion noted on dorsum on pt's right hand, hand swollen, not warm to the touch, no discharge noted. HEAD: Normocephalic. Pt with bilateral bite guards present. Tongue could not be fully visualized, size seemed less than yesterday. EYES: No scleral icterus. No injection or drainage. NECK: Supple, trachea midline. CARDIOVASCULAR: Regular rate and rhythm without murmurs, gallops, or rubs. RESPIRATORY: Breath sounds equal bilaterally. No accessory muscle use. GASTROINTESTINAL: Abdomen soft, non-tender, nondistended. MUSCULOSKELETAL: No cyanosis, or edema. Left side moved on command, right side hemiplegia noted. PSYCHIATRIC: Awake and alert, responds to commands. Medications and IVs Current Medications Medications (Trade) Dose Ordered Sig/Jones Route Start Time Stop Time Status Last Admin (NS Flush) 2 ml UNSCH PRN .XX 08/12/16 18:30 (NS Flush) 2 ml BID .XX 08/12/16 21:00 09/12/16 09:01 Miscellaneous Information 1 Q361D XX 08/12/16 18:30 (Chlorhexidine 2% Cloth) Taper DAILY@04 TOP 08/13/16 04:00 08/09/17 03:59 09/04/16 04:07 (Chlorhexidine 2% Cloth) 3 pack UNSCH PRN TOP 08/12/16 18:30 (Dulcolax Supp) 10 mg DAILY PRN RECTAL 08/12/16 18:30 08/23/16 09:14 (Lactulose Liq) 30 ml DAILY PRN PO 08/12/16 18:30 08/23/16 09:14 (Apresoline Inj) 20 mg Q4H PRN IV PUSH 08/12/16 20:30 09/04/16 09:00 (Brethine Inj) 1 mg UNSCH PRN SQ 08/19/16 07:00 (Benadryl Inj) 50 mg Q6H IV 08/23/16 05:00 09/12/16 05:47 (Heparin Inj) 5,000 units Q8HR SQ 08/24/16 14:00 09/12/16 05:45 (Dilaudid Pf Inj) 0.5 mg Q4H PRN IV PUSH 08/28/16 08:15 09/03/16 16:41 (Catapres-Tts 0.3 Mg Patch.7d) 1 patch Q7D T-DERMAL 08/28/16 13:00 09/11/16 12:29 Miscellaneous Information 1 Q7D T-DERMAL 09/04/16 13:00 09/11/16 12:29 (D50w (Vial) Inj) 50 ml UNSCH PRN IV 09/05/16 21:30 (Glucagon Inj) 1 mg UNSCH PRN OTHER 09/05/16 21:30 (predniSONE LIQ) 20 mg DAILY PEG 09/11/16 09:00 09/12/16 09:01 (Tylenol) 650 mg Q6H PRN G-TUBE 09/11/16 12:30 (Catapres) 0.4 mg Q8HR G-TUBE 09/11/16 14:00 09/12/16 05:44 (Adele-Colace) 1 tab BID G-TUBE 09/11/16 09:00 09/12/16 09:01 (Apresoline) 100 mg Q8HR G-TUBE 09/11/16 14:00 09/12/16 05:44 (Levemir Inj) 40 units DAILYAC SQ 09/11/16 09:00 09/12/16 09:02 (Lopressor) 25 mg Q8HR G-TUBE 09/11/16 14:00 09/12/16 05:44 (Procardia) 10 mg Q6HR NG 09/11/16 12:00 09/12/16 05:44 (Senokot) 17.2 mg Q12H PRN G-TUBE 09/11/16 18:30 (Pepcid) 10 mg BID G-TUBE 09/11/16 21:00 09/12/16 09:02 (Glucotrol) 5 mg BIDAC G-TUBE 09/11/16 16:00 09/12/16 05:44 (Pill Splitter) 1 ea UNSCH PRN OTHER 09/11/16 11:30 (Free Water) VOLUME OF WATER: ( 250 ) ML QID G-TUBE 09/11/16 13:00 09/12/16 09:01 Urinary Catheter: Yes Assessment to: Continue Chacon insert reason: Prolonged Immobilization A/P Problem List: (1) Hemorrhagic stroke ICD Code: I61.9 Status: Acute (2) Left basal ganglia hemorrhage Status: Acute (3) Acute respiratory failure ICD Code: J96.00 Status: Acute (4) HCAP (healthcare-associated pneumonia) ICD Code: J18.9 Status: Acute (5) Angioedema ICD Code: T78.3XXA Status: Acute (6) Hypertensive emergency ICD Code: I16.1 Status: Acute (7) Hypernatremia ICD Code: E87.0 Status: Acute (8) Acute kidney failure ICD Code: N17.9 Status: Acute Assessment and Plan 56-year-old female admitted secondary to basal ganglia hemorrhage related to hypertension. Status post lisinopril reaction with angioedema. Also admitted related to hypertensive urgency. Angioedema is improving slowly. Acute blood loss discovered last afternoon. Patient transfused 3 units of packed red blood cells 08/30/16. Acute blood loss anemia -Hemoglobin 10.2 -Status post 3 units of packed red blood cells transfused 08/30/16. follow for tomorrow with Hemoglobin and Hematocrit Status post basal ganglia hemorrhage -Persistent respiratory failure cheese specialist following -Encephalopathy Improved. Acute hemorrhagic basal ganglia stroke Acute encephalopathy -Maintain blood pressure control with systolic goal less than 160 mmHg -Follow neurological status -Neurosurgeon no further management. -Physical therapy -Occupational therapy -Out of bed to chair as tolerated Acute hypoxic respiratory failure Hypercarbic respiratory failure -Tracheostomy present -Continue oxygenation via tracheostomy -Tracheostomy care -Pulmonary toilet -Wean FiO2 as tolerated -When necessary and scheduled nebulized treatments -Pulmonology following Severe Angioedema Improving. -Secondary to lisinopril -Avoid Rodger inhibitors -Prednisone 20 mg daily x 3 days then decrease on 09/14 to 10mg x 3 days then discontinue. -Continue Pepcid -Continue Benadryl, change to PO from IV. -Follow for improvement Hypertension Recent hypertensive urgency controlled. -Continue metoprolol -Continue hydralazine -Continue clonidine -Continue nifedipine -Avoid lisinopril as patient has allergy to this. Acute on chronic renal failure CKD stage IV creatinine trending down -creatinine trending down, Nephrology following, may need Hemodialysis. -Monitor I's and O's -Maintain Chacon catheter -Decreased Lasix Dose by Nephrology specialist. Hypernatremia/Hyperkalemia Improved. -free water 300 ml every four hours. Acute protein calorie malnutrition -Continue tube feedings -Follow albumin MSSA pneumonia -Treatment completed Escherichia coli UTI -Treated with Rocephin 1 GM Daily Diabetes mellitus type 2 Uncontrolled -Levemir 40 units every morning and 30 units at bedtime -Sliding scale insulin Moderate every four hours. -continue tube feedings adjusted Insulin -with the decreased dose of Prednisone expected to decrease Sugar level . follow closely. Right hand abscess versus seroma -Hand surgery has been consulted, Dr. Sawant has made pt NPO at this time. -Awaiting results of consultation. Right arm superficial venous thrombosis -Per US of 09/11/16, distal cephalic vein thrombus at level of the wrist noted. - As this may be an issue related to item above, will delay treating until pt is seen by Dr. Sawant. DVT prophylaxis -SCDs and subcutaneous heparin GI prophylaxis -Pepcid Lines: -Peripheral IV -Chacon catheter Discussed with patient, nurse (Teresita) at bedside, and Dr. Trevizo. Discharge Planning Pt cleared for discharge to SNF. Steffen Roe Jr. Sep 12, 2016 09:57
[2016-09-12 10:03] LABS: ALT (GPT) 32 U/L (10-53)
[2016-09-12 10:05] LABS: ALKALINE PHOSPHATASE 131 U/L (45-117); TOTAL BILIRUBIN ADULT 0.3 MG/DL (0.2-1.0)
[2016-09-12 10:12] LABS: ANION GAP 12 MEQ/L (5-15); AST (GOT) 23 U/L (15-37); BICARBONATE 27.5 MEQ/L (21.0-32.0); BLOOD UREA NITROGEN 99 MG/DL (7-18); CHLORIDE 92 MEQ/L (98-107); GLOMERULAR FILTRATION RATE 15 ML/MIN (>89); POTASSIUM 3.5 MEQ/L (3.5-5.1); SODIUM (NA) 131 MEQ/L (136-145)
[2016-09-12 10:37] LABS: SCAN/DIFF AUTO DIFF CONFIRMED
--- NOTE | 2016-09-12 16:32 | RADRPT ---
EXAM DATE/TIME: 09/12/2016 15:38 [facility] COMPARISON: No previous studies available for comparison. INDICATIONS : Swelling and wound on posterior side of right hand MEDICAL HISTORY : None. SURGICAL HISTORY : None. ENCOUNTER: Initial ACUITY: 1 day PAIN SCORE: Non-responsive. LOCATION: Right hand FINDINGS: There is marked soft tissue swelling without fracture or dislocation. CONCLUSION: Marked soft tissue swelling. Eddie Smith MD FACR on September 12, 2016 at 16:28 Board Certified Radiologist. This report was verified electronically.
--- NOTE | 2016-09-12 17:04 | HHI.NPPN ---
Subjective General Problems: Edema Renal Failure: Acute Review of Systems General General Remarks unable to obtain Ears, Nose, & Throat ENT Remarks tongue swelling Objective Data Data 09/11/16 09/12/16 19:00 07:00 Intake Total 1000 ml 562 ml Output Total 1350 ml 1200 ml Balance -350 ml -638 ml Tube Feeding 400 ml 562 ml Other 600 ml Output Urine Total 1350 ml 1200 ml # Bowel Movements 0 Vital Signs Date Time Temp Pulse Resp B/P Pulse Ox O2 Delivery O2 Flow Rate FiO2 09/12/16 16:12 98.4 89 18 121/81 97 09/12/16 12:42 97.1 73 18 147/82 98 09/12/16 12:33 98 T-piece 21 09/12/16 08:30 Trach Collar 5.00 21 09/12/16 08:30 97.6 70 18 111/59 99 09/12/16 07:00 74 09/12/16 05:42 76 133/74 09/12/16 04:00 97.8 68 18 108/73 96 09/11/16 23:48 96.9 70 16 133/76 97 09/11/16 21:37 96 T-piece 21 09/11/16 20:36 97.9 71 18 134/79 100 09/11/16 20:00 99 Trach Collar 5.00 28 -: 09/12/16 0839 09/12/16 0748 Tubes & Lines: Chacon Physical Exam General Appearance: Well Developed, No Acute Distress, Obese Eyes Eye Exam: Pupils Equal Throat Throat Exam: Oral Mucosa Penrose & Moist Pulmonary Resp Exam: Breath Sounds Equal, Crackles, Rhonchi Cardiology CV Exam: Regular, Normal Sinus Rhythm, Good Perfusion Gastrointestinal/Abdomen GI Exam: Non-Tender, Bowel Sounds Present Musculoskeletal MS Exam: Joints Intact, Normal Tone, Unable to Ambulate Integumentary Skin Exam: Clear, Warm, Dry, Intact Extremeties Extremities Exam: Pedal Pulses Palpable, Trace Edema Neurologic Neuro Exam: Awake, Obtunded Assessment/Plan Discussed Condition With: Daughter Assessment Summary: CHRIS/Acute Renal Failure, Acute Tubular Necrosis, Fluid/ Volume Overload, Proteinuria, Hypertension, CKD Stage IV Electrolyte Assessment: Hypernatremia Problem List: (1) Acute worsening of stage 4 chronic kidney disease Plan: Creatinine Cr higher 3.7 stop Lasix k normal UOP good Na 131 decrease water flushes 125 cc q 6 follow BMP periodically Nephrology to follow less frequently (2) Hypernatremia Plan: Continue free water, change 125 Q 6 (3) Hypertensive emergency Plan: BP is stable continue oral medications avoid NEGRITO due to CHRIS and angioedema (4) Thalamic hemorrhage Plan: due to hypertensive crisis neurosurgery non surgical management (5) Respiratory failure Plan: s/p trach with T piece appreciate respiratory therapy assistance (6) Anemia, unspecified Plan: Hb stable, Problem Qualifiers (1) Respiratory failure: Qualified Code: J96.00 - Acute respiratory failure, unspecified whether with hypoxia or hypercapnia Bettie Pepper MD Sep 12, 2016 17:04
--- NOTE | 2016-09-12 18:26 | HHI.DS ---
Discharge Summary Admission Date August 12, 2016 at 18:05 Admitting Diagnosis intracranial bleed (1) Left basal ganglia hemorrhage Diagnosis: Principal (2) Hemorrhagic stroke ICD Code: I61.9 Diagnosis: Principal (3) Acute respiratory failure ICD Code: J96.00 Diagnosis: Principal (4) HCAP (healthcare-associated pneumonia) ICD Code: J18.9 Diagnosis: Principal (5) Angioedema ICD Code: T78.3XXA Diagnosis: Principal (6) Hypertensive emergency ICD Code: I16.1 Diagnosis: Principal (7) Hypernatremia ICD Code: E87.0 Diagnosis: Principal (8) Acute kidney failure ICD Code: N17.9 Diagnosis: Principal Procedures Intubation 08/12/16 Tracheostomy 08/21/16 Peg Tube placement 08/25/16 Brief History - From Admission 56-year-old female presents with last seen normal at 5:30am. On arrival to emergency department the patient has right sided weakness but outside stroke alert window, nonverbal. The CAT scan of the head showed acute left basal ganglia hemorrhagic stroke. She was intubated by an ER attending for an airway protection admitted to ICU. CBC/BMP: 09/12/16 0839 09/12/16 0748 Significant Findings Laboratory Tests Test 09/11/16 09/12/16 09/12/16 07:42 07:48 08:39 Hemoglobin 9.7 GM/DL 9.7 GM/DL (11.6-15.3) (11.6-15.3) Hematocrit 30.4 % 30.4 % (35.0-46.0) (35.0-46.0) Sodium Level 135 MEQ/L 131 MEQ/L (136-145) (136-145) Chloride Level 97 MEQ/L 92 MEQ/L (98-107) (98-107) Blood Urea Nitrogen 89 MG/DL (7-18) 99 MG/DL (7-18) Creatinine 3.92 MG/DL 3.73 MG/DL (0.50-1.00) (0.50-1.00) Estimat Glomerular Filtration 14 ML/MIN (>89) 15 ML/MIN (>89) Rate Random Glucose 163 MG/DL 209 MG/DL (74-106) (74-106) Hemoglobin A1c 6.4 % (4.3-6.0) Magnesium Level 3.0 MG/DL (1.5-2.5) Alkaline Phosphatase 131 U/L (45-117) Albumin 2.6 GM/DL (3.4-5.0) White Blood Count 13.7 TH/MM3 (4.0-11.0) Red Blood Count 3.36 MIL/MM3 (4.00-5.30) Neutrophils (%) (Auto) 74.0 % (16.0-70.0) Eosinophils (%) (Auto) 8.1 % (0.0-4.0) Neutrophils # (Auto) 10.1 TH/MM3 (1.8-7.7) Monocytes # (Auto) 1.1 TH/MM3 (0-0.9) Eosinophils # (Auto) 1.1 TH/MM3 (0-0.4) Imaging Last Impressions Hand X-Ray 09/12/16 Signed Impressions: Service Date/Time: Monday, September 12, 2016 15:38 - CONCLUSION: Marked soft tissue swelling. Eddie Smith MD FACR Upper Extremity Ultrasound 09/11/16 0000 Signed Impressions: Service Date/Time: August 19:09 - CONCLUSION: 1. Large complex fluid collection on the posterior hand and concern for abscess or seroma. 2. Superficial venous thrombus in the distal right cephalic vein at the level of the wrist. 3. No evidence of deep venous thrombosis. Amor Uriarte MD Chest X-Ray 09/04/16 0000 Signed Impressions: Service Date/Time: August 15:08 - CONCLUSION: Underinflated examination. No acute cardiopulmonary abnormality is identified. Estrada Busch MD Renal Ultrasound 08/18/16 0000 Signed Impressions: Service Date/Time: Thursday, August 18, 2016 20:22 - CONCLUSION: 1. Small echogenic kidneys typical of chronic parenchymal disease. No evidence of obstructive uropathy or other acute renal abnormality. 2. [place] in the bladder, grossly unremarkable. 3. Apparent small retroperitoneal free fluid, etiology uncertain. Estrada Dunham MD Abdomen X-Ray 08/16/16 0000 Signed Impressions: Service Date/Time: Tuesday, August 16, 2016 08:05 - CONCLUSION: Is a chest tube tip in stomach. Side port in the region of the gastroesophageal junction. Jhony Kirkpatrick MD Head CT 08/13/16 0800 Signed Impressions: Service Date/Time: Saturday, August 13, 2016 04:37 - CONCLUSION: Stable brain appearance Estrada Snow MD PE at Discharge GENERAL: Pt laying abed, non-verbal, T-piece in place, NAD SKIN: Warm and dry. Lesion noted on dorsum on pt's right hand, hand swollen, not warm to the touch, no discharge noted. HEAD: Normocephalic. Pt with bilateral bite guards present. Tongue could not be fully visualized, size seemed less than yesterday. EYES: No scleral icterus. No injection or drainage. NECK: Supple, trachea midline. CARDIOVASCULAR: Regular rate and rhythm without murmurs, gallops, or rubs. RESPIRATORY: Breath sounds equal bilaterally. No accessory muscle use. GASTROINTESTINAL: Abdomen soft, non-tender, nondistended. MUSCULOSKELETAL: No cyanosis, or edema. Left side moved on command, right side hemiplegia noted. PSYCHIATRIC: Awake and alert, responds to commands. Transfer Summary 56-year-old female presents with last seen normal at 5:30am. On arrival to emergency department the patient has right sided weakness but outside stroke alert window, nonverbal. The CAT scan of the head showed acute left basal ganglia hemorrhagic stroke. She was intubated by an ER attending for an airway protection admitted to ICU. 08/13 events overnight, the ICH sites remains the same. 08/14: BP control acceptable. Moves 4 limbs to stimulation, does not follow commands. 08/15: Glucose uncontrolled; start bid levemir and SSI. 08/16: Glucose intolerance persists. Increase Levemir. Increase HTN meds, add schedules hydralazine. 08/17: Glucose control problematic. Add more oral BP control. Largely unresponsive. 08/18: poor neurologic exam persists. glycemic control better. hypertension still uncontrolled requiring nicardipine. Cr stable, and likely chronic. acidosis persists despite bicarb infusion. 08/19: no change in neurologic exam. blood pressure under better control, and slightly hypotensive this morning. off nicardipine. Cr stable. FENa 8% consistent with an intrinsic renal process. renal ultrasound consistent with chronic renal disease. hypernatremia and free water deficit persists despite aggressive free water replacement, as well as total volume overload persists. non-gapped acidosis also persists. 08/20: Spiking fever Tmax 101.3, source unclear. White count 22.9 increased from yesterday. Send panculture, start Zosyn while waiting for cultures to be resulted. Sodium steadily improving 151 today uterine output 4 L BUN 66 creatinine 3.95. Partial eye opening spontaneously, right side flaccid, moves left side spontaneously per RN. Tongue is swollen protuberant 08/21: Fever downtrending, but WBC increased to 25.1, Na 148 BUN/Cr 68/4.15. Placed on Diuril by nephrology for significant fluid overload 08/22: Improving neuro exam, follows commands on left upper and lower extremity. BUN/creatinine increasing today 87/4.3 Will reduce Diuril. May need HD. Cleared for sq heparin by Dr. Tran 08/23 still bad angioedema, hypoglycemic last night 08/24 drop in hemoglobin to 7.7 from 8.8 without hemodynamic changes 08/25 Sitting up in stretcher chair. On TP. UO approx 4L. Creat slightly improved to 4.2 08/26: Remained off vent overnight. Intermittent BP elevation. Will increase Clonidine. Angioedema ? slightly improved. DC Diuril 08/27: Continues to be off vent now more than 72 hr. blood pressure is better controlled. BUN/creatinine improving 85/3.8 urine output 3.5 L in 24 hours. tongue swelling now significantly improved. Follows commands Hospital Course Pt was seen in the Emergency department of [facility] on 08/12/16 intubated and transferred to the ICU under the care of the traffic controller cable team. Neurosurgery (Dr. Tran) was consulted on 08/13/16. Nephrology (Dr. Salazar) was consulted on 08/20/16 as pt was evidencing fluid overload from possible Chronic Kidney Disease. General surgery was consulted on 08/21/16 for tracheostomy placement; procedure completed that day by . Gastroenterology (Dr. Armenta) was consulted on 08/21/16 for PEG placement (which was inserted on 08/25). Dr. Valenzuela was consulted on 08/26/16 to address pt's tracheostomy/pulmonary needs. Pt was transferred to hospitalist service on 08/28/16. Pt Condition on Discharge: Stable Discharge Disposition: Discharge to SNF Discharge Instructions DIET: Follow Instructions for: On Tube Feeding Activities you can perform: Regular-No Restrictions Steffen Roe Jr. Sep 12, 2016 18:26
--- NOTE | 2016-09-12 18:37 | HHI.PR ---
Subjective Remarks ass: IC BLEED S/P TRACH NO DISTRESS tongue swelling seems less now on med floor Objective Vital Signs Date Time Temp Pulse Resp B/P Pulse Ox O2 Delivery O2 Flow Rate FiO2 09/12/16 18:09 97 T-piece 6.00 21 09/12/16 16:12 98.4 89 18 121/81 97 09/12/16 12:42 97.1 73 18 147/82 98 09/12/16 12:33 98 T-piece 21 09/12/16 08:30 Trach Collar 5.00 21 09/12/16 08:30 97.6 70 18 111/59 99 09/12/16 07:00 74 09/12/16 05:42 76 133/74 09/12/16 04:00 97.8 68 18 108/73 96 09/11/16 23:48 96.9 70 16 133/76 97 09/11/16 21:37 96 T-piece 21 09/11/16 20:36 97.9 71 18 134/79 100 09/11/16 20:00 99 Trach Collar 5.00 28 I/O 09/11/16 09/11/16 09/11/16 09/12/16 09/12/16 09/12/16 07:00 15:00 23:00 07:00 15:00 23:00 Intake Total 480 ml 1000 ml 562 ml Output Total 1350 ml 1200 ml 800 ml Balance 480 ml -350 ml -638 ml -800 ml Tube Feeding 480 ml 400 ml 562 ml Other 600 ml Output Urine Total 1350 ml 1200 ml 800 ml # Bowel Movements 0 Result Diagram: 09/12/16 0839 09/12/16 0748 Procedures Endotracheal Intubation and extubation Tracheostomy PEG tube placement. Objective Remarks GENERAL: SKIN: Warm and dry. HEAD: Atraumatic. Normocephalic. tongue protruding EYES: Pupils equal and round. No scleral icterus. No injection or drainage. ENT: No nasal bleeding or discharge. Mucous membranes pink and moist. NECK: Trachea midline. trach in place . CARDIOVASCULAR: Regular rate and rhythm. RESPIRATORY: No accessory muscle use. Clear to auscultation. Breath sounds equal bilaterally. GASTROINTESTINAL: Abdomen soft, non-tender, nondistended. Hepatic and splenic margins not palpable. MUSCULOSKELETAL: Extremities without clubbing, cyanosis, or edema. No obvious deformities. NEUROLOGICAL: Awake and alert. No obvious cranial nerve deficits. Motor grossly within normal limits. Five out of 5 muscle strength in the arms and legs. Normal speech. PSYCHIATRIC: Appropriate mood and affect; insight and judgment normal. Assessment and Plan Assessment and Plan ass respiratory failure S/P IC bleed S/P Tracheostomy plan: O2 as needed pulmonary toilet WILL KEEP TRACH IN [place] TONGUE IS OBSTRUCTING AIRWAY ok for d/c to [facility] facility office i month to address tracheostomy Bianca Valenzuela MD Sep 12, 2016 18:37
--- NOTE | 2016-09-12 20:16 | PD.ORT.PN ---
Subjective Subjective Remarks See dictated consult note for full details. 56yF s/p hemorrhagic stroke with loss of motor function RUE & RLE with swelling dorsum right hand of unknown duration. Patient denies pain right hand. Endorses paresthesias RUE. Objective Vitals Vital Signs Date Time Temp Pulse Resp B/P Pulse Ox O2 Delivery O2 Flow Rate FiO2 09/12/16 19:57 80 09/12/16 18:09 97 T-piece 6.00 21 09/12/16 16:12 98.4 89 18 121/81 97 09/12/16 12:42 97.1 73 18 147/82 98 09/12/16 12:33 98 T-piece 21 09/12/16 08:30 Trach Collar 5.00 21 09/12/16 08:30 97.6 70 18 111/59 99 09/12/16 07:00 74 09/12/16 05:42 76 133/74 09/12/16 04:00 97.8 68 18 108/73 96 09/11/16 23:48 96.9 70 16 133/76 97 09/11/16 21:37 96 T-piece 21 09/11/16 20:36 97.9 71 18 134/79 100 I/O 09/11/16 09/11/16 09/11/16 09/12/16 09/12/16 09/12/16 07:00 15:00 23:00 07:00 15:00 23:00 Intake Total 480 ml 1000 ml 562 ml Output Total 1350 ml 1200 ml 800 ml Balance 480 ml -350 ml -638 ml -800 ml Tube Feeding 480 ml 400 ml 562 ml Other 600 ml Output Urine Total 1350 ml 1200 ml 800 ml # Bowel Movements 0 Result Diagram: 09/12/16 0839 09/12/16 0748 Imaging Last 24 hours Impressions Hand X-Ray 09/12/16 0000 Signed Impressions: Service Date/Time: Monday, September 12, 2016 15:38 - CONCLUSION: Marked soft tissue swelling. Eddie Smith MD FACR Objective Remarks No motor function RUE. decreased sensation m/u/r, 2+ radial pulse, eschar on dorsum of hand with edema dorsum right hand without erythema or warmth or drainage Assessment & Plan Assessment and Plan 56yF with right dorsal hand swelling after hemorrhagic stroke and loss of motor function right hand -Patient currently on prednisone, no sign of draining wound, discussed options with patient -Patient elected to proceed with aspiration of swelling. Consent signed. 2cc of bloody fluid aspirated from right hand without complication, Sent to lab for culture and cell count. Likely hematoma right hand. Will follow labs. -No indication for surgical intervention at this time. Recommend light compressive kesha wrap right hand and close followup. Anna Sawant MD Sep 12, 2016 20:16
[2016-09-12] MEDS: diphenhydrAMINE HCL ELIXIR 12.5 MG/5 ML CUP PEG SCH (21:46)
[2016-09-13] VITALS (11 sets, daily range): BP systolic 135–199; BP diastolic 80–95; PULSE 75–94; RESP 16–20; TEMP 94.9–98.2; O2SAT 97–100
[2016-09-13] MEDS: NIFEdipine 10 MG CAP NG SCH ×4 (01:42→16:59)
[2016-09-13] MEDS: diphenhydrAMINE HCL ELIXIR 12.5 MG/5 ML CUP PEG SCH ×4 (02:26→21:48)
[2016-09-13] MEDS: CHLORHEXIDINE GLUCONATE 2 % 1 PACK (2 CLOTHS) TOP SCH (03:22)
[2016-09-13] MEDS: cloNIDine HCL 0.2 MG TAB G-TUBE SCH ×3 (06:01→21:49)
[2016-09-13] MEDS: hydrALAZINE HCL 100 MG TAB G-TUBE SCH ×3 (06:01→21:49)
[2016-09-13] MEDS: METOPROLOL TARTRATE 25 MG TAB G-TUBE SCH ×3 (06:01→21:49)
[2016-09-13] MEDS: glipiZIDE 5 MG TAB G-TUBE SCH ×2 (06:01→16:59)
[2016-09-13] MEDS: HEPARIN SODIUM - SQ 10,000 UNITS/ML VIAL SQ SCH ×3 (06:02→21:48)
[2016-09-13] MEDS: INSULIN NovoLIN REGULAR SUPPLEMENTAL SCALE SQ SCH ×4 (06:51→21:51)
[2016-09-13] MEDS: INSULIN DETEMIR 100 UNITS/ML VIAL SQ SCH (08:23)
[2016-09-13] MEDS: FAMOTIDINE 20 MG TAB G-TUBE SCH ×2 (08:24→21:00)
[2016-09-13] MEDS: DOCUSATE SODIUM 50 MG/SENNA 8.6 MG TAB G-TUBE SCH ×2 (08:24→21:00)
[2016-09-13] MEDS: SODIUM CHLORIDE 0.9% FLUSH 10 ML FLUSH SCH ×2 (08:24→21:50)
[2016-09-13] MEDS: predniSONE 5 MG/5 ML CUP PEG SCH (08:24)
[2016-09-13] MEDS: FREE WATER G-TUBE SCH ×3 (08:25→16:59)
--- NOTE | 2016-09-13 15:54 | HHI.NPPN ---
Subjective General Problems: Edema Renal Failure: Acute Additional Remarks Resting in bed with trach, no apparent distress Review of Systems General General Remarks unable to obtain Ears, Nose, & Throat ENT Remarks tongue swelling Objective Data Data 09/12/16 09/13/16 19:00 07:00 Output Total 800 ml 1000 ml Balance -800 ml -1000 ml Output Urine Total 800 ml 1000 ml Vital Signs Date Time Temp Pulse Resp B/P Pulse Ox O2 Delivery O2 Flow Rate FiO2 09/13/16 13:25 89 161/95 97 09/13/16 11:42 98.2 87 18 158/81 99 09/13/16 10:53 87 09/13/16 09:07 99 T-piece 28 09/13/16 08:08 97.2 83 16 171/80 99 09/13/16 05:40 99 6.00 09/13/16 05:30 94.9 94 20 161/85 100 09/13/16 03:54 96 T-Piece 21 09/13/16 03:22 97.7 75 18 135/80 98 09/12/16 20:00 97.3 92 20 145/77 95 09/12/16 19:57 80 09/12/16 18:09 97 T-piece 6.00 21 09/12/16 16:12 98.4 89 18 121/81 97 -: 09/12/16 0839 09/12/16 0748 Microbiology 09/12/16 Gram Stain - Final, Resulted 09/12/16 Wound Culture - Preliminary, Resulted NO GROWTH IN 24 HOURS. Tubes & Lines: [place] Physical Exam General Appearance: Well Developed, No Acute Distress, Obese Eyes Eye Exam: Pupils Equal Throat Throat Exam: Oral Mucosa [place] & Moist Pulmonary Resp Exam: Breath Sounds Equal, Crackles, Rhonchi Cardiology CV Exam: Regular, Normal Sinus Rhythm, Good Perfusion Gastrointestinal/Abdomen GI Exam: Non-Tender, Bowel Sounds Present Musculoskeletal MS Exam: Joints Intact, Normal Tone, Unable to Ambulate Integumentary Skin Exam: Clear, Warm, Dry, Intact Extremeties Extremities Exam: Pedal Pulses Palpable, Trace Edema Neurologic Neuro Exam: Awake, Obtunded Assessment/Plan Discussed Condition With: Daughter Assessment Summary: CHRIS/Acute Renal Failure, Acute Tubular Necrosis, Fluid/ Volume Overload, Proteinuria, Hypertension, CKD Stage IV Electrolyte Assessment: Hypernatremia Problem List: (1) Acute worsening of stage 4 chronic kidney disease Plan: No new labs today, will check bmp in AM Creatinine 3.9-> 3.7 yesterday, lasix stopped. Hyperkalemia resolved UOP good Na 131, will further decrease water flushes 250 cc q 8 follow BMP periodically Nephrology to follow less frequently (2) Hypernatremia Plan: On free water flushes (3) Hypertensive emergency Plan: BP is stable continue oral medications avoid NEGRITO due to CHRIS and angioedema (4) Thalamic hemorrhage Plan: due to hypertensive crisis neurosurgery non surgical management (5) Respiratory failure Plan: s/p trach with T piece appreciate respiratory therapy assistance (6) Anemia, unspecified Plan: Hb stable, Problem Qualifiers (1) Respiratory failure: Qualified Code: J96.00 - Acute respiratory failure, unspecified whether with hypoxia or hypercapnia Tato Ashford MD Sep 13, 2016 15:54
--- NOTE | 2016-09-13 16:58 | MB ---
cc: [facility]EL[facility] DATE OF CONSULTATION 09/12/2016 REASON FOR CONSULTATION Swelling right hand. HISTORY OF PRESENT ILLNESS Swathi Richey is a pleasant 56-year-old female who was initially admitted on 08/12/2016. She was admitted with right-sided weakness and concern for a stroke. Upon presentation, the patient's blood pressure was 222/106 with a pulse of 112. CT scan showed acute hemorrhagic basal ganglia stroke and the patient has been in the hospital. The patient was noted to have no motor control of the right upper and right lower extremities. The patient had significant angioedema of the tongue on my exam and thus was unable to speak but had bite wings in place, but was able to respond appropriately to commands as far as moving her left upper and left lower extremity and nod her head yes and no in answer to questions. No family at the bedside on evaluation. The patient nodded her head no to having any pain or numbness in the right upper extremity. Again, she was unable to control the right upper extremity. I was consulted on 09/12/2016 for swelling in the dorsum of the right hand. It is unclear how long it has been present, but the nurse at the bedside said that she noticed the swelling two days prior to consult and thus requested consultation for evaluation. At time of my evaluation, the patient did not have any restraints in place. PHYSICAL EXAMINATION The patient with angioedema of the tongue with bite wings in place. The patient has no motor control of the right upper extremity. She is not able to flex or extend the elbow. She is not able to flex or extend the wrist or fingers. She reports decreased sensation globally to touch. SHe does have a small eschar on the dorsum of the hand but there is no drainage. There is no erythema and there is no warmth. The patient does have boggy swelling on the dorsum of the hand from the MCP proximally to just distal to the wrist. She does have a 2+ radial pulse. LABORATORY DATA Labs show white count 13.7 down from prior of 17. No recent coagulation, although on presentation her coagulation INR was one. PT 10.7, PTT 25.6, albumin 2.6, glucose 209. The patient does have positive staph aureus cultures from her sputum and E-coli from her urine. IMAGING STUDIES X-rays of the right hand were ordered, performed and reviewed which shows no evidence of fracture or other significant abnormalities. ASSESSMENT/PLAN A 56-year-old female admitted for right-sided weakness noted to have a basal ganglia hemorrhagic stroke with loss of motor control of the right upper and right lower extremities. She has had a history of diabetes as well. This was discussed with the patient. She signed informed consent to proceed with aspiration of the swelling under sterile conditions. Chloraprep was used to clean the hand, then a sterile 18-gauge needle was used to puncture the right hand fluid collection. I obtained approximately 2 mL of clotted blood and no evidence of purulence. I was unable to aspirate anymore due to the clotting of the needle. The patient was then placed into an Rodger wrap dressing. This will be sent for cell count and culture. We will follow the results. The patient is on high doses of prednisone and, at this time there is no indication for surgical intervention. Recommend light compressive wrap over the hand and close followup. No sign of infection at this time. MD LESLEE De Leon/ /4:35 PM /4:53 PM MTDAyan
--- NOTE | 2016-09-13 18:36 | HHI.PR ---
Subjective Remarks Follow-up for left basal ganglia hemorrhagic stroke, Dm, and angioedema. Pt with tracheostomy, non-verbal. Yes/No responses seemed accurate. Tongue pain denied. Pt denied diabetes or taking medication for diabetes yesterday but when asked this question today, her and pt both said "yes." Pt's said pt had been irritable since he arrived; cause/reason unknown. Pt denied fever, pain, cough, shortness of breath, NVD. Per pt's RN (Dyana) reported pt pulled trach out last evening and it was replaced with a smaller size; pt said to be breathing well. Otherwise no acute events over night and none have developed since start of shift. RN did report pt was to have oral care later in the day and had "chapped lips." Objective Vitals Vital Signs Date Time Temp Pulse Resp B/P Pulse Ox O2 Delivery O2 Flow Rate FiO2 09/13/16 16:25 97.9 77 16 160/91 100 09/13/16 13:25 89 161/95 97 09/13/16 11:42 98.2 87 18 158/81 99 09/13/16 10:53 87 09/13/16 09:07 99 T-piece 28 09/13/16 08:08 97.2 83 16 171/80 99 09/13/16 05:40 99 6.00 09/13/16 05:30 94.9 94 20 161/85 100 09/13/16 03:54 96 T-Piece 21 09/13/16 03:22 97.7 75 18 135/80 98 09/12/16 20:00 97.3 92 20 145/77 95 09/12/16 19:57 80 I/O 09/12/16 09/12/16 09/12/16 09/13/16 09/13/16 09/13/16 07:00 15:00 23:00 07:00 15:00 23:00 Intake Total 562 ml 1305 ml 125 ml Output Total 1200 ml 800 ml 1000 ml 800 ml Balance -638 ml -800 ml -1000 ml 505 ml 125 ml Tube Feeding 562 ml 680 ml Other 625 ml 125 ml Output Urine Total 1200 ml 800 ml 1000 ml 800 ml # Bowel Movements 0 Result Diagram: 09/12/16 0839 09/12/16 0748 Objective Remarks GENERAL: Pt laying abed, non-verbal, T-piece in place, NAD. at bedside SKIN: Warm and dry. Pt's right hand noted to be wrapped in rodger bandage. HEAD: Normocephalic. Pt with left sided bite guard present. Tongue could not be fully visualized, continues to be somewhat swollen. Lips and anterior portion of tongue dry. EYES: No scleral icterus. No injection or drainage. NECK: Supple, trachea midline. CARDIOVASCULAR: Regular rate and rhythm without murmurs, gallops, or rubs. RESPIRATORY: Breath sounds equal bilaterally. No accessory muscle use. GASTROINTESTINAL: Abdomen soft, non-tender, nondistended. MUSCULOSKELETAL: No cyanosis, or edema. Left side moved on command, right side hemiplegia noted. PSYCHIATRIC: Awake and alert, responds to commands. Procedures Intubation 08/12/16 Tracheostomy 08/21/16 Peg Tube placement 08/25/16 Medications and IVs Current Medications Medications (Trade) Dose Ordered Sig/Jones Route Start Time Stop Time Status Last Admin (NS Flush) 2 ml UNSCH PRN .XX 08/12/16 18:30 (NS Flush) 2 ml BID .XX 08/12/16 21:00 09/13/16 08:24 Miscellaneous Information 1 Q361D XX 08/12/16 18:30 (Chlorhexidine 2% Cloth) Taper DAILY@04 TOP 08/13/16 04:00 08/09/17 03:59 09/04/16 04:07 (Chlorhexidine 2% Cloth) 3 pack UNSCH PRN TOP 08/12/16 18:30 (Dulcolax Supp) 10 mg DAILY PRN RECTAL 08/12/16 18:30 08/23/16 09:14 (Lactulose Liq) 30 ml DAILY PRN PO 08/12/16 18:30 08/23/16 09:14 (Apresoline Inj) 20 mg Q4H PRN IV PUSH 08/12/16 20:30 09/04/16 09:00 (Brethine Inj) 1 mg UNSCH PRN SQ 08/19/16 07:00 (Heparin Inj) 5,000 units Q8HR SQ 08/24/16 14:00 09/13/16 13:17 (Dilaudid Pf Inj) 0.5 mg Q4H PRN IV PUSH 08/28/16 08:15 09/03/16 16:41 (Catapres-Tts 0.3 Mg Patch.7d) 1 patch Q7D T-DERMAL 08/28/16 13:00 09/11/16 12:29 Miscellaneous Information 1 Q7D T-DERMAL 09/04/16 13:00 09/11/16 12:29 (D50w (Vial) Inj) 50 ml UNSCH PRN IV 09/05/16 21:30 (Glucagon Inj) 1 mg UNSCH PRN OTHER 09/05/16 21:30 (predniSONE LIQ) 20 mg DAILY PEG 09/11/16 09:00 09/13/16 08:24 (Tylenol) 650 mg Q6H PRN G-TUBE 09/11/16 12:30 (Catapres) 0.4 mg Q8HR G-TUBE 09/11/16 14:00 09/13/16 13:24 (Adele-Colace) 1 tab BID G-TUBE 09/11/16 09:00 09/13/16 08:24 (Apresoline) 100 mg Q8HR G-TUBE 09/11/16 14:00 09/13/16 13:24 (Levemir Inj) 40 units DAILYAC SQ 09/11/16 09:00 09/13/16 08:23 (Lopressor) 25 mg Q8HR G-TUBE 09/11/16 14:00 09/13/16 13:24 (Procardia) 10 mg Q6HR NG 09/11/16 12:00 09/13/16 16:59 (Senokot) 17.2 mg Q12H PRN G-TUBE 09/11/16 18:30 (Pepcid) 10 mg BID G-TUBE 09/11/16 21:00 09/13/16 08:24 (Glucotrol) 5 mg BIDAC G-TUBE 09/11/16 16:00 09/13/16 16:59 (Pill Splitter) 1 ea UNSCH PRN OTHER 09/11/16 11:30 (Benadryl Liq) 12.5 mg Q6H PEG 09/12/16 20:00 09/13/16 13:17 (Free Water) VOLUME OF WATER: ( 125 ) ML TID G-TUBE 09/13/16 18:00 09/13/16 16:59 Urinary Catheter: Yes Assessment to: Continue Chacon insert reason: Prolonged Immobilization A/P Problem List: (1) Left basal ganglia hemorrhage Status: Acute (2) Hemorrhagic stroke ICD Code: I61.9 Status: Acute (3) Acute respiratory failure ICD Code: J96.00 Status: Acute (4) HCAP (healthcare-associated pneumonia) ICD Code: J18.9 Status: Acute (5) Angioedema ICD Code: T78.3XXA Status: Acute (6) Hypertensive emergency ICD Code: I16.1 Status: Acute (7) Hypernatremia ICD Code: E87.0 Status: Acute (8) Acute kidney failure ICD Code: N17.9 Status: Acute Assessment and Plan 56-year-old female admitted secondary to basal ganglia hemorrhage related to hypertension. Status post lisinopril reaction with angioedema. Also admitted related to hypertensive urgency. Angioedema is improving slowly. Acute blood loss discovered last afternoon. Patient transfused 3 units of packed red blood cells 08/30/16. Acute blood loss anemia -Hemoglobin 10.2 -Status post 3 units of packed red blood cells transfused 08/30/16. follow for tomorrow with Hemoglobin and Hematocrit Status post basal ganglia hemorrhage -Persistent respiratory failure campaign specialist following -Encephalopathy Improved. Acute hemorrhagic basal ganglia stroke Acute encephalopathy -Maintain blood pressure control with systolic goal less than 160 mmHg -Follow neurological status -Neurosurgeon no further management. -Physical therapy -Occupational therapy -Out of bed to chair as tolerated Acute hypoxic respiratory failure Hypercarbic respiratory failure -Tracheostomy present -Continue oxygenation via tracheostomy -Tracheostomy care -Pulmonary toilet -Wean FiO2 as tolerated -When necessary and scheduled nebulized treatments -Pulmonology following Severe Angioedema Improving. -Secondary to lisinopril -Avoid Rodger inhibitors -Prednisone 20 mg daily x 3 days then decrease on 09/14 to 10mg x 3 days then discontinue. -Continue Pepcid -Continue Benadryl, change to PO from IV. -Follow for improvement Hypertension Recent hypertensive urgency controlled. -Continue metoprolol -Continue hydralazine -Continue clonidine -Continue nifedipine -Avoid lisinopril as patient has allergy to this. Acute on chronic renal failure CKD stage IV creatinine trending down -creatinine trending down, Nephrology following, may need Hemodialysis. -Monitor I's and O's -Maintain Chacon catheter -Decreased Lasix Dose by Nephrology specialist. Hypernatremia/Hyperkalemia Improved. -free water 300 ml every four hours. Acute protein calorie malnutrition -Continue tube feedings -Follow albumin MSSA pneumonia -Treatment completed Escherichia coli UTI -Treated with Rocephin 1 GM Daily Diabetes mellitus type 2 Uncontrolled -Levemir 40 units every morning. -Sliding scale insulin Moderate every four hours. -continue tube feedings adjusted Insulin -with the decreased dose of Prednisone expected to decrease Sugar level . follow closely. -Confirmed with pt and she is not on Insulin at home. -A1c noted to be 6.4 Right hand abscess versus seroma -Hand surgery has been consulted, Dr. Sawant has made pt NPO at this time. -Awaiting results of consultation. Right arm superficial venous thrombosis -Per US of 09/11/16, distal cephalic vein thrombus at level of the wrist noted. - As this may be an issue related to item above, will delay treating until pt is seen by Dr. Sawant. DVT prophylaxis -SCDs and subcutaneous heparin GI prophylaxis -Pepcid Lines: -Peripheral IV -Chacon catheter Discussed with patient, nurse (Teresita) at bedside, and Dr. Trevizo. Discharge Planning Pt cleared for discharge to SNF. Steffen Roe Jr. Sep 13, 2016 18:36
[2016-09-14] VITALS (9 sets, daily range): BP systolic 116–171; BP diastolic 64–83; PULSE 73–106; RESP 18–20; TEMP 96.4–98.3; O2SAT 95–100
[2016-09-14] MEDS: NIFEdipine 10 MG CAP NG SCH ×4 (00:53→16:52)
[2016-09-14] MEDS: diphenhydrAMINE HCL ELIXIR 12.5 MG/5 ML CUP PEG SCH ×4 (01:01→22:44)
[2016-09-14] MEDS: CHLORHEXIDINE GLUCONATE 2 % 1 PACK (2 CLOTHS) TOP SCH ×2 (03:37→22:58)
[2016-09-14] MEDS: cloNIDine HCL 0.2 MG TAB G-TUBE SCH ×3 (05:27→22:44)
[2016-09-14] MEDS: hydrALAZINE HCL 100 MG TAB G-TUBE SCH ×3 (05:27→22:44)
[2016-09-14] MEDS: METOPROLOL TARTRATE 25 MG TAB G-TUBE SCH ×3 (05:27→22:44)
[2016-09-14] MEDS: HEPARIN SODIUM - SQ 10,000 UNITS/ML VIAL SQ SCH ×3 (05:28→22:44)
[2016-09-14] MEDS: glipiZIDE 5 MG TAB G-TUBE SCH ×2 (06:03→16:52)
[2016-09-14] MEDS: INSULIN NovoLIN REGULAR SUPPLEMENTAL SCALE SQ SCH ×4 (06:21→21:00)
[2016-09-14] MEDS: INSULIN DETEMIR 100 UNITS/ML VIAL SQ SCH (08:03)
[2016-09-14] MEDS: predniSONE 5 MG/5 ML CUP PEG SCH (08:19)
[2016-09-14] MEDS: FAMOTIDINE 20 MG TAB G-TUBE SCH ×2 (08:20→21:00)
[2016-09-14] MEDS: DOCUSATE SODIUM 50 MG/SENNA 8.6 MG TAB G-TUBE SCH ×2 (08:20→21:00)
[2016-09-14] MEDS: SODIUM CHLORIDE 0.9% FLUSH 10 ML FLUSH SCH ×2 (08:20→22:45)
[2016-09-14] MEDS: FREE WATER G-TUBE SCH ×3 (08:20→16:52)
[2016-09-14 10:22] LABS: BICARBONATE 26.1 MEQ/L (21.0-32.0); POTASSIUM 3.6 MEQ/L (3.5-5.1)
--- NOTE | 2016-09-14 10:55 | RADRPT ---
EXAM DATE/TIME: 09/14/2016 10:26 [facility] COMPARISON: CHEST SINGLE AP, September 04, 2016, 15:08. INDICATIONS : Difficulty breathing. MEDICAL HISTORY : Hypercholesterolemia. Hypertension. Arthritis. Cerebrovascular accident. SURGICAL HISTORY : Tracheostomy ENCOUNTER: Initial ACUITY: 1 day PAIN SCORE: 0/10 LOCATION: Bilateral chest FINDINGS: Tracheostomy tube and cardiomegaly again seen. There are degenerative changes of the spine. The lungs are clear. CONCLUSION: No acute disease. Calvin Uribe MD on September 14, 2016 at 10:52 Board Certified Radiologist. This report was verified electronically.
--- NOTE | 2016-09-14 15:48 | HHI.PR ---
Subjective Remarks Follow-up for left basal ganglia hemorrhagic stroke, Dm, and angioedema. Pt with tracheostomy, non-verbal. Yes/No responses seemed accurate. Tongue pain denied. Pt's said pt "must of had a rough night because she is tied down." Pt denied fever, pain, shortness of breath, NVD. Cough was endorsed with onset this morning. Per pt's RN (Dyana) reported pt again "decannulated herself " last evening and it was replaced. Pt said to be breathing well. RN also said pt seemed "sad" this morning'; pt confirmed this to be the case and indicated sadness being present since yesterday. Otherwise no acute events over night and none have developed since start of shift. Pt's questioning potential D/C to [facility] and is requesting [facility]. Objective Vitals Vital Signs Date Time Temp Pulse Resp B/P Pulse Ox O2 Delivery O2 Flow Rate FiO2 09/14/16 13:22 82 136/80 98 09/14/16 11:22 97.9 73 20 171/83 99 09/14/16 09:37 100 T-piece 09/14/16 08:10 96.8 76 20 145/75 99 09/14/16 04:00 97.4 77 18 129/68 95 09/14/16 01:39 106 09/14/16 00:20 99 T-Piece 09/14/16 00:00 98.3 74 18 116/64 98 09/13/16 20:00 98.0 83 18 199/94 97 09/13/16 19:47 99 T-piece 6.00 09/13/16 16:25 97.9 77 16 160/91 100 I/O 09/13/16 09/13/16 09/13/16 09/14/16 09/14/16 09/14/16 07:00 15:00 23:00 07:00 15:00 23:00 Intake Total 1305 ml 125 ml 780 ml Output Total 1000 ml 800 ml 1000 ml Balance -1000 ml 505 ml 125 ml -220 ml Tube Feeding 680 ml 480 ml Other 625 ml 125 ml 300 ml Output Urine Total 1000 ml 800 ml 1000 ml Result Diagram: 09/12/16 0839 09/14/16 0829 Objective Remarks GENERAL: Pt laying abed, non-verbal, T-piece in place, NAD. at bedside SKIN: Warm and dry. Pt's right hand noted to be wrapped in rodger bandage. HEAD: Normocephalic. Pt with left sided bite guard present. Tongue could not be fully visualized, continues to be somewhat swollen. Lips and anterior portion of tongue dry. EYES: No scleral icterus. No injection or drainage. NECK: Supple, trachea midline. CARDIOVASCULAR: Regular rate and rhythm without murmurs, gallops, or rubs. RESPIRATORY: Breath sounds equal bilaterally. No accessory muscle use. GASTROINTESTINAL: Abdomen soft, non-tender, nondistended. MUSCULOSKELETAL: No cyanosis, or edema. Left side moved on command, right side hemiplegia noted. PSYCHIATRIC: Awake and alert, responds to commands. Procedures Intubation 08/12/16 Tracheostomy 08/21/16 Peg Tube placement 08/25/16 Medications and IVs Current Medications Medications (Trade) Dose Ordered Sig/Jones Route Start Time Stop Time Status Last Admin (NS Flush) 2 ml UNSCH PRN .XX 08/12/16 18:30 (NS Flush) 2 ml BID .XX 08/12/16 21:00 09/14/16 08:20 Miscellaneous Information 1 Q361D XX 08/12/16 18:30 (Chlorhexidine 2% Cloth) Taper DAILY@04 TOP 08/13/16 04:00 08/09/17 03:59 09/04/16 04:07 (Chlorhexidine 2% Cloth) 3 pack UNSCH PRN TOP 08/12/16 18:30 (Dulcolax Supp) 10 mg DAILY PRN RECTAL 08/12/16 18:30 08/23/16 09:14 (Lactulose Liq) 30 ml DAILY PRN PO 08/12/16 18:30 08/23/16 09:14 (Apresoline Inj) 20 mg Q4H PRN IV PUSH 08/12/16 20:30 09/04/16 09:00 (Brethine Inj) 1 mg UNSCH PRN SQ 08/19/16 07:00 (Heparin Inj) 5,000 units Q8HR SQ 08/24/16 14:00 09/14/16 13:33 (Dilaudid Pf Inj) 0.5 mg Q4H PRN IV PUSH 08/28/16 08:15 09/03/16 16:41 (Catapres-Tts 0.3 Mg Patch.7d) 1 patch Q7D T-DERMAL 08/28/16 13:00 09/11/16 12:29 Miscellaneous Information 1 Q7D T-DERMAL 09/04/16 13:00 09/11/16 12:29 (D50w (Vial) Inj) 50 ml UNSCH PRN IV 09/05/16 21:30 (Glucagon Inj) 1 mg UNSCH PRN OTHER 09/05/16 21:30 (predniSONE LIQ) 20 mg DAILY PEG 09/11/16 09:00 09/14/16 08:19 (Tylenol) 650 mg Q6H PRN G-TUBE 09/11/16 12:30 (Catapres) 0.4 mg Q8HR G-TUBE 09/11/16 14:00 09/14/16 13:33 (Adele-Colace) 1 tab BID G-TUBE 09/11/16 09:00 09/13/16 08:24 (Apresoline) 100 mg Q8HR G-TUBE 09/11/16 14:00 09/14/16 13:33 (Levemir Inj) 40 units DAILYAC SQ 09/11/16 09:00 09/14/16 08:03 (Lopressor) 25 mg Q8HR G-TUBE 09/11/16 14:00 09/14/16 13:33 (Procardia) 10 mg Q6HR NG 09/11/16 12:00 09/14/16 11:59 (Senokot) 17.2 mg Q12H PRN G-TUBE 09/11/16 18:30 (Pepcid) 10 mg BID G-TUBE 09/11/16 21:00 09/14/16 08:20 (Glucotrol) 5 mg BIDAC G-TUBE 09/11/16 16:00 09/14/16 06:03 (Pill Splitter) 1 ea UNSCH PRN OTHER 09/11/16 11:30 (Benadryl Liq) 12.5 mg Q6H PEG 09/12/16 20:00 09/14/16 13:33 (Free Water) VOLUME OF WATER: ( 125 ) ML TID G-TUBE 09/13/16 18:00 09/14/16 13:33 Urinary Catheter: Yes Assessment to: Continue Chacon insert reason: Prolonged Immobilization A/P Problem List: (1) Left basal ganglia hemorrhage Status: Acute (2) Hemorrhagic stroke ICD Code: I61.9 Status: Acute (3) Acute respiratory failure ICD Code: J96.00 Status: Acute (4) HCAP (healthcare-associated pneumonia) ICD Code: J18.9 Status: Acute (5) Angioedema ICD Code: T78.3XXA Status: Acute (6) Hypertensive emergency ICD Code: I16.1 Status: Acute (7) Hypernatremia ICD Code: E87.0 Status: Acute (8) Acute kidney failure ICD Code: N17.9 Status: Acute Assessment and Plan 56-year-old female admitted secondary to basal ganglia hemorrhage related to hypertension. Status post lisinopril reaction with angioedema. Also admitted related to hypertensive urgency. Angioedema is improving slowly. Acute blood loss discovered last afternoon. Patient transfused 3 units of packed red blood cells 08/30/16. Acute blood loss anemia -Hemoglobin 10.2 -Status post 3 units of packed red blood cells transfused 08/30/16. follow for tomorrow with Hemoglobin and Hematocrit Status post basal ganglia hemorrhage -Persistent respiratory failure network support specialist following -Encephalopathy Improved. Acute hemorrhagic basal ganglia stroke Acute encephalopathy -Maintain blood pressure control with systolic goal less than 160 mmHg -Follow neurological status -Neurosurgeon no further management. -Physical therapy -Occupational therapy -Out of bed to chair as tolerated Acute hypoxic respiratory failure Hypercarbic respiratory failure -Tracheostomy present -Continue oxygenation via tracheostomy -Tracheostomy care -Pulmonary toilet -Wean FiO2 as tolerated -When necessary and scheduled nebulized treatments -Pulmonology following Severe Angioedema Improving. -Secondary to lisinopril -Avoid Rodger inhibitors -Prednisone 20 mg daily x 3 days then decrease on 09/14 to 10mg x 3 days then discontinue. -Continue Pepcid -Continue Benadryl, change to PO from IV. -Follow for improvement Hypertension Recent hypertensive urgency controlled. -Continue metoprolol -Continue hydralazine -Continue clonidine -Continue nifedipine -Avoid lisinopril as patient has allergy to this. Acute on chronic renal failure CKD stage IV creatinine trending down -creatinine trending down, Nephrology following, may need Hemodialysis. -Monitor I's and O's -Maintain Chacon catheter -Decreased Lasix Dose by Nephrology specialist. Hypernatremia/Hyperkalemia Improved. -free water 300 ml every four hours. Acute protein calorie malnutrition -Continue tube feedings -Follow albumin MSSA pneumonia -Treatment completed Escherichia coli UTI -Treated with Rocephin 1 GM Daily Diabetes mellitus type 2 Uncontrolled -Levemir 40 units every morning. -Sliding scale insulin Moderate every four hours. -continue tube feedings adjusted Insulin -with the decreased dose of Prednisone expected to decrease Sugar level . follow closely. -Confirmed with pt and she is not on Insulin at home. -A1c noted to be 6.4 Right hand abscess versus seroma -Hand surgery has been consulted, Dr. Sawant has made pt NPO at this time. -Awaiting results of consultation. -Dr. sawant aspirated wound and send aspirate off for cultures. -Pt hand wrapped in Rodger bandage, Dr. Sawant following. Right arm superficial venous thrombosis -Per US of 09/11/16, distal cephalic vein thrombus at level of the wrist noted. - As this may be an issue related to item above, will delay treating until pt is seen by Dr. Sawant. DVT prophylaxis -SCDs and subcutaneous heparin GI prophylaxis -Pepcid Lines: -Peripheral IV -Chacon catheter Discussed with patient, pt's at bedside, nurse (Dyana), and Dr. Trevizo. Discharge Planning Pt cleared for discharge to SNF. Pt's questioning potential D/C to [facility] and is requesting [facility]. Steffen Roe Jr. Sep 14, 2016 15:48
--- NOTE | 2016-09-14 16:47 | HHI.NPPN ---
Subjective General Problems: Edema Renal Failure: Acute Additional Remarks Resting in bed with trach, no apparent distress Review of Systems General General Remarks unable to obtain Ears, Nose, & Throat ENT Remarks tongue swelling Objective Data Data 09/13/16 09/14/16 19:00 07:00 Intake Total 1430 ml 780 ml Output Total 800 ml 1000 ml Balance 630 ml -220 ml Tube Feeding 680 ml 480 ml Other 750 ml 300 ml Output Urine Total 800 ml 1000 ml Vital Signs Date Time Temp Pulse Resp B/P Pulse Ox O2 Delivery O2 Flow Rate FiO2 09/14/16 13:22 82 136/80 98 09/14/16 11:22 97.9 73 20 171/83 99 09/14/16 09:37 100 T-piece 21 09/14/16 08:10 96.8 76 20 145/75 99 09/14/16 04:00 97.4 77 18 129/68 95 09/14/16 01:39 106 09/14/16 00:20 99 T-Piece 21 09/14/16 00:00 98.3 74 18 116/64 98 09/13/16 20:00 98.0 83 18 199/94 97 09/13/16 19:47 99 T-piece 6.00 21 -: 09/12/16 0839 09/14/16 0829 Tubes & Lines: Chacon Physical Exam General Appearance: Well Developed, No Acute Distress, Obese Eyes Eye Exam: Pupils Equal Throat Throat Exam: Oral Mucosa Brenham & Moist Pulmonary Resp Exam: Breath Sounds Equal, Crackles, Rhonchi Cardiology CV Exam: Regular, Normal Sinus Rhythm, Good Perfusion Gastrointestinal/Abdomen GI Exam: Non-Tender, Bowel Sounds Present Musculoskeletal MS Exam: Joints Intact, Normal Tone, Unable to Ambulate Integumentary Skin Exam: Clear, Warm, Dry, Intact Extremeties Extremities Exam: Pedal Pulses Palpable, Trace Edema Neurologic Neuro Exam: Awake, Obtunded Assessment/Plan Discussed Condition With: Daughter Assessment Summary: CHRIS/Acute Renal Failure, Acute Tubular Necrosis, Fluid/ Volume Overload, Proteinuria, Hypertension, CKD Stage IV Electrolyte Assessment: Hypernatremia Problem List: (1) Acute worsening of stage 4 chronic kidney disease Plan: Creatinine 3.9-> 3.7- > 3.8. Lasix stopped. Hyperkalemia resolved UOP good Na 135 - continue free water flushes 250 cc q 8 follow BMP periodically Planning transfer to SNF. Creatinine has been fairly stable for the last 2 weeks. Can check BMP periodically. Will sign off for now, may contact Dr. Pepper this week if any further renal issues. (2) Hypernatremia Plan: On free water flushes (3) Hypertensive emergency Plan: BP is stable continue oral medications avoid NEGRITO due to CHRIS and angioedema (4) Thalamic hemorrhage Plan: due to hypertensive crisis neurosurgery non surgical management (5) Respiratory failure Plan: s/p trach with T piece appreciate respiratory therapy assistance (6) Anemia, unspecified Plan: Hb stable, Problem Qualifiers (1) Respiratory failure: Qualified Code: J96.00 - Acute respiratory failure, unspecified whether with hypoxia or hypercapnia Tato Ashford MD Sep 14, 2016 16:47
--- NOTE | 2016-09-14 21:04 | PD.ORT.PN ---
Subjective Subjective Remarks See dictated consult note for full details. 56yF s/p hemorrhagic stroke with loss of motor function RUE & RLE with swelling dorsum right hand of unknown duration. Patient denies pain right hand. Endorses paresthesias RUE. Objective Vitals Vital Signs Date Time Temp Pulse Resp B/P Pulse Ox O2 Delivery O2 Flow Rate FiO2 09/14/16 16:43 96.4 76 20 140/72 97 09/14/16 13:22 82 136/80 98 09/14/16 11:22 97.9 73 20 171/83 99 09/14/16 09:37 100 T-piece 21 09/14/16 09:20 Blow By 28 T-Piece Humidified 09/14/16 08:10 96.8 76 20 145/75 99 09/14/16 04:00 97.4 77 18 129/68 95 09/14/16 01:39 106 09/14/16 00:20 99 T-Piece 09/14/16 00:00 98.3 74 18 116/64 98 I/O 09/13/16 09/13/16 09/13/16 09/14/16 09/14/16 09/14/16 07:00 15:00 23:00 07:00 15:00 23:00 Intake Total 1305 ml 125 ml 780 ml Output Total 1000 ml 800 ml 1000 ml 850 ml Balance -1000 ml 505 ml 125 ml -220 ml -850 ml Tube Feeding 680 ml 480 ml Other 625 ml 125 ml 300 ml Output Urine Total 1000 ml 800 ml 1000 ml 850 ml # Bowel Movements 1 Result Diagram: 09/12/16 0839 09/14/16 0829 Imaging Last 24 hours Impressions Hand X-Ray 09/12/16 0000 Signed Impressions: Service Date/Time: Monday, September 12, 2016 15:38 - CONCLUSION: Marked soft tissue swelling. Eddie Smith MD FACR Objective Remarks No motor function RUE. decreased sensation m/u/r, 2+ radial pulse, eschar on dorsum of hand with edema dorsum right hand without erythema or warmth or drainage Assessment & Plan Assessment and Plan 56yF with right dorsal hand swelling after hemorrhagic stroke and loss of motor function right hand -Patient currently on prednisone, no sign of draining wound, discussed options with patient -Cell count + RBCs, cultures negative, no sign of infection right hand -No indication for surgical intervention at this time. Recommend light compressive kesha wrap right hand and followup 1-2 weeks in office once discharged. Anna Sawant MD Sep 14, 2016 21:03
[2016-09-14] MEDS: HYDROmorphone HCL PF 1 MG/ML VIAL IV PUSH PRN (23:29)
[2016-09-15] VITALS (10 sets, daily range): BP systolic 111–202; BP diastolic 65–95; PULSE 72–112; RESP 18–20; TEMP 96.5–99.8; O2SAT 95–100
[2016-09-15] MEDS: NIFEdipine 10 MG CAP NG SCH ×5 (01:28→23:46)
[2016-09-15] MEDS: diphenhydrAMINE HCL ELIXIR 12.5 MG/5 ML CUP PEG SCH ×4 (02:36→20:07)
[2016-09-15] MEDS: INSULIN NovoLIN REGULAR SUPPLEMENTAL SCALE SQ SCH ×4 (05:44→20:18)
[2016-09-15] MEDS: HEPARIN SODIUM - SQ 10,000 UNITS/ML VIAL SQ SCH ×3 (05:45→23:04)
[2016-09-15] MEDS: cloNIDine HCL 0.2 MG TAB G-TUBE SCH ×3 (05:47→23:04)
[2016-09-15] MEDS: METOPROLOL TARTRATE 25 MG TAB G-TUBE SCH ×2 (05:47→14:10)
[2016-09-15] MEDS: hydrALAZINE HCL 100 MG TAB G-TUBE SCH ×3 (05:47→23:04)
[2016-09-15] MEDS: glipiZIDE 5 MG TAB G-TUBE SCH ×2 (05:51→17:57)
[2016-09-15] MEDS: INSULIN DETEMIR 100 UNITS/ML VIAL SQ SCH (08:00)
[2016-09-15] MEDS: SODIUM CHLORIDE 0.9% FLUSH 10 ML FLUSH SCH ×2 (09:00→20:13)
[2016-09-15] MEDS: FREE WATER G-TUBE SCH ×3 (09:00→17:59)
--- NOTE | 2016-09-15 09:36 | HHI.PR ---
Subjective Remarks Follow-up for left basal ganglia hemorrhagic stroke, DM, and angioedema. Patient seen and examined today, appears restless in bed. RN at bedside. Patient lying in bed with trach collar in place. Nonverbal. Nods appropriately to questions. Tracking with eyes. Following commands on left side, significant right sided neglect noted. Tolerating TF. Afebrile. Spoke to RN, denies any acute events overnight. BP elevated. Spoke to family who believes patient is complaining of pain in left hip due to prior fall. Difficult to assess site of pain. Objective Vitals Vital Signs Date Time Temp Pulse Resp B/P Pulse Ox O2 Delivery O2 Flow Rate FiO2 09/15/16 09:16 96.5 99 20 194/88 100 09/15/16 04:00 98.0 106 18 117/71 95 09/15/16 00:09 18 09/15/16 00:00 97.0 72 20 135/76 99 09/14/16 20:00 97.3 77 18 134/77 95 09/14/16 16:43 96.4 76 20 140/72 97 09/14/16 13:22 82 136/80 98 09/14/16 11:22 97.9 73 20 171/83 99 09/14/16 09:37 100 T-piece 21 I/O 09/14/16 09/14/16 09/14/16 09/15/16 09/15/16 09/15/16 07:00 15:00 23:00 07:00 15:00 23:00 Intake Total 780 ml Output Total 1000 ml 850 ml 950 ml 900 ml Balance -220 ml -850 ml -950 ml -900 ml Tube Feeding 480 ml Other 300 ml Output Urine Total 1000 ml 850 ml 950 ml 900 ml # Bowel Movements 1 2 Result Diagram: 09/12/16 0839 09/14/16 0829 Imaging Last Impressions Chest X-Ray 09/14/16 0000 Signed Impressions: Service Date/Time: Wednesday, September 14, 2016 10:26 - CONCLUSION: No acute disease. Calvin Uribe MD Hand X-Ray 09/12/16 0000 Signed Impressions: Service Date/Time: Monday, September 12, 2016 15:38 - CONCLUSION: Marked soft tissue swelling. Eddie Smith MD FACR Upper Extremity Ultrasound 09/11/16 0000 Signed Impressions: Service Date/Time: August 19:09 - CONCLUSION: 1. Large complex fluid collection on the posterior hand and concern for abscess or seroma. 2. Superficial venous thrombus in the distal right cephalic vein at the level of the wrist. 3. No evidence of deep venous thrombosis. Amor Uriarte MD Renal Ultrasound 08/18/16 0000 Signed Impressions: Service Date/Time: Thursday, August 18, 2016 20:22 - CONCLUSION: 1. Small echogenic kidneys typical of chronic parenchymal disease. No evidence of obstructive uropathy or other acute renal abnormality. 2. Chacon in the bladder, grossly unremarkable. 3. Apparent small retroperitoneal free fluid, etiology uncertain. Estrada Dunham MD Abdomen X-Ray 08/16/16 0000 Signed Impressions: Service Date/Time: Tuesday, August 16, 2016 08:05 - CONCLUSION: Is a chest tube tip in stomach. Side port in the region of the gastroesophageal junction. Jhony Kirkpatrick MD Head CT 08/13/16 0800 Signed Impressions: Service Date/Time: Saturday, August 13, 2016 04:37 - CONCLUSION: Stable brain appearance Estrada Snow MD Objective Remarks GENERAL: Pt laying in bed, non-verbal, T-piece in place, family at bedside. Patient quite restless. SKIN: Warm and dry. HEAD: Normocephalic. Pt with left sided bite guard present. Tongue swelling reduced. EYES: No scleral icterus. No injection or drainage. NECK: Supple, trachea midline. CARDIOVASCULAR: Regular rate and rhythm. No murmur appreciated. RESPIRATORY: Breath sounds equal bilaterally. No accessory muscle use. GASTROINTESTINAL: Abdomen soft, non-tender, nondistended. PEG site clean/d/i. MUSCULOSKELETAL: No cyanosis, or edema. Left side moved on command, right side hemiplegia noted. PSYCHIATRIC: Awake and alert, responds to commands. Procedures Intubation 08/12/16 Tracheostomy 08/21/16 Peg Tube placement 08/25/16 Urinary Catheter: Yes Assessment to: Continue Chacon insert reason: Prolonged Immobilization Date of Insertion: Sep 15, 2016 Vascular Central Line Catheter: No A/P Problem List: (1) Left basal ganglia hemorrhage Status: Acute (2) Hemorrhagic stroke ICD Code: I61.9 Status: Acute (3) Acute respiratory failure ICD Code: J96.00 Status: Acute (4) HCAP (healthcare-associated pneumonia) ICD Code: J18.9 Status: Acute (5) Angioedema ICD Code: T78.3XXA Status: Acute (6) Hypertensive emergency ICD Code: I16.1 Status: Acute (7) Hypernatremia ICD Code: E87.0 Status: Acute (8) Acute kidney failure ICD Code: N17.9 Status: Acute Assessment and Plan 56-year-old female admitted secondary to basal ganglia hemorrhage related to hypertension. Status post lisinopril reaction with angioedema. Also admitted related to hypertensive urgency. Angioedema is improving slowly. Acute blood loss discovered last afternoon. Patient transfused 3 units of packed red blood cells 08/30/16. Acute hemorrhagic basal ganglia stroke Acute encephalopathy, improving - Maintain blood pressure control with systolic goal less than 160 mmHg - Follow neurological status. - Encephalopathy improving. - Neurosurgeon signed off, no further management. - Continue physical therapy/OT Hypoxic respiratory failure, acute on chronic - Pulmonary following, appreciate input. - Trach replaced to #6 fenestrated cuffless trach today 09/15/16. - Continue oxygenation via tracheostomy - Continue tracheostomy care - Pulmonary toilet - Wean FiO2 as tolerated - Continue scheduled and PRN Duonebs. Severe Angioedema suspect secondary to RODGER. Improving. - Avoid Rodger inhibitors - Prednisone 20 mg daily. - Continue Benadryl. - Monitor. Left hip pain suspect secondary to prior fall - Will obtain x-ray of hip. Follow. Anemia suspect secondary to acute blood loss: Resolved. - H/H stable. -Status post 3 units of packed red blood cells transfused 08/30/16. Hypertension, chronic: uncontrolled suspect secondary to hip pain Recent hypertensive urgency - Continue metoprolol, hydralazine, clonidine, nifedipine - Increase metoprolol from 25mg to 50 mg PO q8h. - Start hydralazine 25 mg PO q6h PRN and clonidine 0.3 mg q6h PRN sys >180/ diastolic>100, Hold HR<60. - Obtain hip xray from recent fall. Follow. Control pain. Increase pain medications. Acute on chronic renal failure CKD stage IV - Nephrology signed off. BMP stable for several weeks. Reconsult if needed. - Monitor I's and O's - Maintain Chacon catheter - Avoid nephrotoxins. Protein calorie malnutrition: Continue tube feedings. Add Gonzalo supplementation. MSSA pneumonia, resolved: Treatment completed Escherichia coli UTI, resolved: Treated with Rocephin 1 GM Daily Diabetes mellitus type 2 Uncontrolled suspect secondary to steroid use. -Levemir 40 units every morning. -Sliding scale insulin moderate every four hours. - Add prandial insulin 2 units sq TIDAC. Monitor closely. - Patient still continued on prednisone, may be causing an increase in blood sugar. Once dc'd, monitor closely. - Continue tube feedings - A1c noted to be 6.4 Right hand abscess versus seroma - Hand surgery has been consulted, Dr. Sawant, who has no indication for surgical intervention. Recommendations for light compressive rodger wrap to right hand and follow up in outpatient setting. - Hand wound cultures sent and pending. Right arm superficial venous thrombosis - Per US of 09/11/16, distal cephalic vein thrombus at level of the wrist noted. DVT prophylaxis: SCDs and subcutaneous heparin. GI prophylaxis: Pepcid DW patient, family, charge master analyst and Dr. Trevizo. Discharge Planning Last CM note: 09/15/16 9:05am: CM left message for Nicole at [facility] to obtain update on acceptance and auth. Ashley Pickens Sep 15, 2016 09:36
[2016-09-15] MEDS: FAMOTIDINE 20 MG TAB G-TUBE SCH ×2 (09:51→20:08)
[2016-09-15] MEDS: DOCUSATE SODIUM 50 MG/SENNA 8.6 MG TAB G-TUBE SCH ×2 (09:51→20:09)
[2016-09-15] MEDS: predniSONE 5 MG/5 ML CUP PEG SCH (09:53)
[2016-09-15] MEDS: HYDROmorphone HCL PF 1 MG/ML VIAL IV PUSH PRN (13:14)
--- NOTE | 2016-09-15 14:07 | HHI.PR ---
Subjective Remarks ass: IC BLEED S/P TRACH NO DISTRESS tongue swelling seems less Objective Vital Signs Date Time Temp Pulse Resp B/P Pulse Ox O2 Delivery O2 Flow Rate FiO2 09/15/16 12:32 99.3 101 20 194/90 100 09/15/16 10:28 98 T-piece 21 09/15/16 09:16 96.5 99 20 194/88 100 09/15/16 04:00 98.0 106 18 117/71 95 09/15/16 00:09 18 09/15/16 00:00 97.0 72 20 135/76 99 09/14/16 20:00 97.3 77 18 134/77 95 09/14/16 16:43 96.4 76 20 140/72 97 I/O 09/14/16 09/14/16 09/14/16 09/15/16 09/15/16 09/15/16 07:00 15:00 23:00 07:00 15:00 23:00 Intake Total 780 ml Output Total 1000 ml 850 ml 950 ml 900 ml Balance -220 ml -850 ml -950 ml -900 ml Tube Feeding 480 ml Other 300 ml Output Urine Total 1000 ml 850 ml 950 ml 900 ml # Bowel Movements 1 2 Result Diagram: 09/12/16 0839 09/14/16 0829 Procedures Endotracheal Intubation and extubation Tracheostomy PEG tube placement. Objective Remarks GENERAL: SKIN: Warm and dry. HEAD: Atraumatic. Normocephalic. tongue protruding EYES: Pupils equal and round. No scleral icterus. No injection or drainage. ENT: No nasal bleeding or discharge. Mucous membranes pink and moist. NECK: Trachea midline. trach in place . CARDIOVASCULAR: Regular rate and rhythm. RESPIRATORY: No accessory muscle use. Clear to auscultation. Breath sounds equal bilaterally. GASTROINTESTINAL: Abdomen soft, non-tender, nondistended. Hepatic and splenic margins not palpable. MUSCULOSKELETAL: Extremities without clubbing, cyanosis, or edema. No obvious deformities. NEUROLOGICAL: Awake and alert. No obvious cranial nerve deficits. Motor grossly within normal limits. Five out of 5 muscle strength in the arms and legs. Normal speech. PSYCHIATRIC: Appropriate mood and affect; insight and judgment normal. Assessment and Plan Assessment and Plan ass respiratory failure S/P IC bleed S/P Tracheostomy plan: O2 as needed pulmonary toilet WILL KEEP TRACH IN [place] TONGUE IS OBSTRUCTING AIRWAY ok for d/c to [facility] term facility change to fenestrated trach , and remove when possible Bianca Valenzuela MD Sep 15, 2016 14:07
[2016-09-15] MEDS ORDERED: ISOSORBIDE DINITRATE 20 MG TAB PO SCH (17:30)
[2016-09-15] MEDS ORDERED: cloNIDine HCL 0.2 MG TAB PO PRN (17:30)
[2016-09-15] MEDS ORDERED: cloNIDine HCL 0.3 MG TAB PO PRN (17:45)
[2016-09-15] MEDS ORDERED: hydrALAZINE HCL 25 MG TAB PO PRN (17:45)
[2016-09-15] MEDS ORDERED: HYDROmorphone HCL PF 1 MG/ML VIAL IV PRN (20:00)
[2016-09-15] MEDS: ACETAMINOPHEN/HYDROcodone 325 MG/5 MG TAB PEG PRN (20:08)
--- NOTE | 2016-09-15 20:55 | RADRPT ---
EXAM DATE/TIME: 09/15/2016 20:11 [facility] COMPARISON: No previous studies available for comparison. INDICATIONS : Right hip pain. MEDICAL HISTORY : None. SURGICAL HISTORY : None. ENCOUNTER: Initial ACUITY: 1 day PAIN SCORE: Non-responsive. LOCATION: Right hip. FINDINGS: 2 views of the right hip an AP view of the pelvis was performed. There is a faint horizontal lucency through the mid femoral neck on the frontal view and some irregularity of the trabecular of the supe rior femoral neck. The articular surface of the femoral head is smooth. There is symmetric degenera tive changes in both hips. The bony pelvic ring are grossly intact. Multiple hemoclips in the pelvi s. The bony acetabulum appears intact. CONCLUSION: Findings suggest the possibility of a nondisplaced femoral neck fracture with some irregularity of th e trabecular superior aspect of the femoral neck. Benito Tobias MD on September 15, 2016 at 20:51 Board Certified Radiologist. This report was verified electronically.
[2016-09-15] MEDS: METOPROLOL TARTRATE 50 MG TAB G-TUBE SCH (23:04)
[2016-09-16] VITALS (8 sets, daily range): BP systolic 109–148; BP diastolic 60–88; PULSE 71–93; RESP 18–24; TEMP 96.7–98.7; O2SAT 95–99
[2016-09-16] MEDS: diphenhydrAMINE HCL ELIXIR 12.5 MG/5 ML CUP PEG SCH ×4 (01:43→22:27)
[2016-09-16] MEDS: ACETAMINOPHEN/HYDROcodone 325 MG/5 MG TAB PEG PRN (01:43)
[2016-09-16] MEDS: CHLORHEXIDINE GLUCONATE 2 % 1 PACK (2 CLOTHS) TOP SCH (04:00)
[2016-09-16] MEDS: hydrALAZINE HCL 100 MG TAB G-TUBE SCH ×3 (05:40→22:28)
[2016-09-16] MEDS: NIFEdipine 10 MG CAP NG SCH ×3 (05:40→16:44)
[2016-09-16] MEDS: METOPROLOL TARTRATE 50 MG TAB G-TUBE SCH ×2 (05:40→22:29)
[2016-09-16] MEDS: cloNIDine HCL 0.2 MG TAB G-TUBE SCH ×3 (05:40→22:29)
[2016-09-16] MEDS: glipiZIDE 5 MG TAB G-TUBE SCH ×2 (05:40→14:38)
[2016-09-16] MEDS: HEPARIN SODIUM - SQ 10,000 UNITS/ML VIAL SQ SCH ×3 (05:41→22:27)
[2016-09-16] MEDS: INSULIN NovoLIN REGULAR SUPPLEMENTAL SCALE SQ SCH ×4 (05:44→21:00)
[2016-09-16] MEDS ORDERED: INSULIN HUMAN REGULAR 1,000 UNITS/10 ML VIAL SQ SCH (08:00)
[2016-09-16] MEDS: DOCUSATE SODIUM 50 MG/SENNA 8.6 MG TAB G-TUBE SCH ×2 (09:00→21:00)
[2016-09-16] MEDS: SODIUM CHLORIDE 0.9% FLUSH 10 ML FLUSH SCH ×2 (09:00→22:28)
[2016-09-16] MEDS: FREE WATER G-TUBE SCH ×3 (09:00→16:53)
[2016-09-16] MEDS: INSULIN DETEMIR 100 UNITS/ML VIAL SQ SCH (09:26)
[2016-09-16] MEDS: INSULIN HUMAN REGULAR 1,000 UNITS/10 ML VIAL SQ SCH ×3 (09:27→16:50)
[2016-09-16] MEDS: FAMOTIDINE 20 MG TAB G-TUBE SCH ×2 (09:31→22:28)
[2016-09-16] MEDS: predniSONE 5 MG/5 ML CUP PEG SCH (09:32)
[2016-09-16 09:49] LABS: AUTOMATED NEUTROPHIL # 12.4 TH/MM3 (1.8-7.7); BASOPHIL # 0.1 TH/MM3 (0-0.2); BASOPHIL % 0.5 % (0.0-2.0); EOSINOPHIL # 0.9 TH/MM3 (0-0.4); EOSINOPHIL % 5.6 % (0.0-4.0); HEMATOCRIT 29.8 % (35.0-46.0); LYMPH % 11.3 % (9.0-44.0); LYMPHOCYTE # 1.9 TH/MM3 (1.0-4.8); MEAN CELL VOLUME 90.7 FL (80.0-100.0); MEAN CORPUSCULAR HEMOGLOBIN 29.5 PG (27.0-34.0); MEAN CORPUSCULAR HGB CONC 32.6 % (32.0-36.0); MONO % 8.7 % (0.0-8.0); NEUT % 73.9 % (16.0-70.0); PLATELET COUNT 209 TH/MM3 (150-450); RED BLOOD COUNT 3.29 MIL/MM3 (4.00-5.30); RED CELL DISTRIBUTION WIDTH 15.4 % (11.6-17.2); WHITE BLOOD COUNT 16.7 TH/MM3 (4.0-11.0)
[2016-09-16 09:51] LABS: HEMO FLAGS AUTO DIFF
[2016-09-16 10:10] LABS: BICARBONATE 26.8 MEQ/L (21.0-32.0); POTASSIUM 3.3 MEQ/L (3.5-5.1)
[2016-09-16 10:56] LABS: SCAN/DIFF AUTO DIFF CONFIRMED
--- NOTE | 2016-09-16 11:54 | RADRPT ---
EXAM DATE/TIME: 09/16/2016 11:24 [facility] COMPARISON: No previous studies available for comparison. INDICATIONS : Evaluate pelvis for right femoral neck fracture. ORAL CONTRAST: No oral contrast ingested. RADIATION DOSE: 16.41 CTDIvol (mGy) MEDICAL HISTORY : Cardiovascular disease. Hypertension. Diabetes mellitus type 1. SURGICAL HISTORY : None. ENCOUNTER: Initial ACUITY: 2 days PAIN SCALE: 6/10 LOCATION: pelvis TECHNIQUE: Volumetric scanning of the pelvis was performed. Using automated exposure control and adjustment of the mA and/or kV according to patient size, radiation dose was kept as low as reasonably achievable t o obtain optimal diagnostic quality images. DICOM format image data is available electronically for review and comparison. FINDINGS: Surgical clips are noted in the pelvis. Calcified uterine fibroid identified. Small fat containing um bilical hernia. Small fat containing right inguinal hernia. There are degenerative changes of the low er lumbar spine. There are no fractures identified. CONCLUSION: 1. No evidence for femoral neck fracture. Calvin Uribe MD on September 16, 2016 at 11:50 Board Certified Radiologist. This report was verified electronically.
--- NOTE | 2016-09-16 14:06 | HHI.PR ---
Subjective Remarks Follow-up for left basal ganglia hemorrhagic stroke, DM, and angioedema. Patient seen and examined today, lying in bed, less restless today. Patient nodding 'no' to pain. Following commands in left upper and lower extremity. Spoke to RN at bedside, no new events overnight, BP and pain more controlled. Tolerating TF. No recent vomiting or diarrhea. Afebrile. CT of pelvis/hip negative for femoral fracture. Objective Vitals Vital Signs Date Time Temp Pulse Resp B/P Pulse Ox O2 Delivery O2 Flow Rate FiO2 09/16/16 12:00 97.8 75 18 109/60 98 09/16/16 08:28 98 T-piece 21 09/16/16 08:01 98.2 75 22 148/79 99 09/16/16 05:36 96.7 82 19 147/74 98 09/16/16 02:43 18 09/15/16 23:45 75 111/65 09/15/16 22:19 80 134/94 09/15/16 20:46 98.9 87 18 180/90 99 09/15/16 17:07 99.8 112 20 202/95 100 I/O 09/15/16 09/15/16 09/15/16 09/16/16 09/16/16 09/16/16 07:00 15:00 23:00 07:00 15:00 23:00 Intake Total 620 ml 620 ml Output Total 950 ml 900 ml 700 ml 400 ml Balance -950 ml -900 ml -80 ml 220 ml Tube Feeding 320 ml 320 ml Other 300 ml 300 ml Output Urine Total 950 ml 900 ml 700 ml 400 ml # Bowel Movements 2 1 1 Result Diagram: 09/16/16 0919 09/16/16 0919 Imaging Last Impressions Pelvis CT 09/16/16 0000 Signed Impressions: Service Date/Time: Friday, September 16, 2016 11:24 - CONCLUSION: 1. No evidence for femoral neck fracture. Calvin Uribe MD Hip and Pelvis X-Ray 09/15/16 1507 Signed Impressions: Service Date/Time: Thursday, September 15, 2016 20:11 - CONCLUSION: Findings suggest the possibility of a nondisplaced femoral neck fracture with some irregularity of the trabecular superior aspect of the femoral neck. Benito Tobias MD Chest X-Ray 09/14/16 0000 Signed Impressions: Service Date/Time: Wednesday, September 14, 2016 10:26 - CONCLUSION: No acute disease. Calvin Uribe MD Hand X-Ray 09/12/16 0000 Signed Impressions: Service Date/Time: Monday, September 12, 2016 15:38 - CONCLUSION: Marked soft tissue swelling. Eddie Smith MD FACR Upper Extremity Ultrasound 09/11/16 0000 Signed Impressions: Service Date/Time: August 19:09 - CONCLUSION: 1. Large complex fluid collection on the posterior hand and concern for abscess or seroma. 2. Superficial venous thrombus in the distal right cephalic vein at the level of the wrist. 3. No evidence of deep venous thrombosis. Amor Uriarte MD Renal Ultrasound 08/18/16 0000 Signed Impressions: Service Date/Time: Thursday, August 18, 2016 20:22 - CONCLUSION: 1. Small echogenic kidneys typical of chronic parenchymal disease. No evidence of obstructive uropathy or other acute renal abnormality. 2. Chacon in the bladder, grossly unremarkable. 3. Apparent small retroperitoneal free fluid, etiology uncertain. Estrada Dunham MD Abdomen X-Ray 08/16/16 0000 Signed Impressions: Service Date/Time: Tuesday, August 16, 2016 08:05 - CONCLUSION: Is a chest tube tip in stomach. Side port in the region of the gastroesophageal junction. Jhony Kirkpatrick MD Head CT 08/13/16 0800 Signed Impressions: Service Date/Time: Saturday, August 13, 2016 04:37 - CONCLUSION: Stable brain appearance Estrada Snow MD Objective Remarks GENERAL: Pt laying in bed, non-verbal, T-piece in place. In NAD. SKIN: Warm and dry. HEAD: Normocephalic. Pt with left sided bite guard present. Tongue swelling reduced. EYES: No scleral icterus. No injection or drainage. NECK: Supple, trachea midline. CARDIOVASCULAR: Regular rate and rhythm. No murmur appreciated. RESPIRATORY: Breath sounds equal bilaterally. No accessory muscle use. GASTROINTESTINAL: Abdomen soft, non-tender, nondistended. PEG site clean/d/i. MUSCULOSKELETAL: No cyanosis, or edema. Bilateral left upper and lower extremity following commands, right side hemiplegia noted. PSYCHIATRIC: Awake and alert, responds to commands. Nodding appropriately. Tracking with eyes. Procedures Intubation 5/30/17 Tracheostomy 08/21/16 Peg Tube placement 08/25/16 Urinary Catheter: Yes Date of Insertion: Sep 15, 2016 A/P Problem List: (1) Left basal ganglia hemorrhage Status: Acute (2) Hemorrhagic stroke ICD Code: I61.9 Status: Acute (3) Acute respiratory failure ICD Code: J96.00 Status: Acute (4) HCAP (healthcare-associated pneumonia) ICD Code: J18.9 Status: Acute (5) Angioedema ICD Code: T78.3XXA Status: Acute (6) Hypertensive emergency ICD Code: I16.1 Status: Acute (7) Hypernatremia ICD Code: E87.0 Status: Acute (8) Acute kidney failure ICD Code: N17.9 Status: Acute Assessment and Plan 56-year-old female admitted secondary to basal ganglia hemorrhage related to hypertension. Status post lisinopril reaction with angioedema. Also admitted related to hypertensive urgency. Angioedema is improving slowly. Acute blood loss discovered last afternoon. Patient transfused 3 units of packed red blood cells 08/30/16. Acute hemorrhagic basal ganglia stroke Acute encephalopathy, improving - Maintain blood pressure control with systolic goal less than 160 mmHg - Follow neurological status. - Encephalopathy improving. - Neurosurgeon signed off, no further management. - Continue physical therapy/OT Hypoxic respiratory failure, acute on chronic - Pulmonary following, appreciate input. - Trach replaced to #6 fenestrated cuffless trach 09/15/16. Attempt PMV. - Continue oxygenation via tracheostomy - Continue tracheostomy care - Pulmonary toilet - Wean FiO2 as tolerated - Continue scheduled and PRN Duonebs. Severe Angioedema suspect secondary to RODGER. Improving. - Avoid Rodger inhibitors - Decrease Prednisone 20 mg daily to 10 mg daily for 6 days. Assess tongue swelling after taper. - Continue Benadryl. - Monitor. Left hip pain suspect secondary to prior fall - X-ray of hip reviewed and showing possibility of femoral neck fracture. CT pelvis/hip obtained and reviewed showing no signs of femoral fracture. - Control pain. [place] 5/325 mg PO q4h and 10/325 mg PO PRN per pain scale. Dilaudid 0.75 mg IV q4h PRN breakthrough pain. Anemia suspect secondary to acute blood loss: Resolved. - H/H stable. -Status post 3 units of packed red blood cells transfused 08/30/16. Hypertension, chronic: uncontrolled suspect secondary to hip pain Recent hypertensive urgency - More controlled today. - Continue metoprolol, hydralazine, clonidine, nifedipine - Hydralazine 25 mg PO q6h PRN and clonidine 0.3 mg q6h PRN sys >180/ diastolic>100, Hold HR<60. Acute on chronic renal failure CKD stage IV - Nephrology signed off. BMP stable for several weeks. Reconsult if needed. - Monitor I's and O's - Maintain Chacon catheter - Avoid nephrotoxins. Hypokalemia: K 3.3 today 09/16/16. KCL eff 25 meq PO x 1. Recheck in am. Follow. Leukocytosis suspect secondary to steroids: WBC 13.7 --> 16.7. Afebrile. No signs of infection. Mild bandemia. Will monitor. Protein calorie malnutrition: Continue tube feedings and Gonzalo supplementation. MSSA pneumonia, resolved: Treatment completed. Escherichia coli UTI, resolved: Treated with Rocephin 1 GM Daily Diabetes mellitus type 2 Uncontrolled suspect secondary to steroid use. - Levemir 40 units every morning. - ACCU checks q4h, continue Sliding scale insulin moderate scale, cover as needed. - Increase prandial insulin 4 units sq TIDAC. Monitor closely. - Patient still continued on prednisone, may be causing hyperglycemia. Once dc'd, monitor closely. - Continue tube feedings. - A1c noted to be 6.4 Right hand abscess versus seroma - Hand surgery has been consulted, Dr. Sawant, who has no indication for surgical intervention. Recommendations for light compressive rodger wrap to right hand and follow up in outpatient setting. - Hand wound cultures sent and pending. Right arm superficial venous thrombosis - Per US of 09/11/16, distal cephalic vein thrombus at level of the wrist noted. DVT prophylaxis: SCDs and subcutaneous heparin. GI prophylaxis: Pepcid DW patient, family, charge master specialist and Dr. Trevizo. Discharge Planning Last CM note: 09/15/16 9:05am: CM left message for Nicole lay [facility] to obtain update on acceptance and auth. Ashley Pickens Sep 16, 2016 14:06
[2016-09-16] MEDS ORDERED: POTASSIUM CHLORIDE 25 MEQ EFFERVESCENT TAB PO ONE (15:00)
--- NOTE | 2016-09-16 16:17 | HHI.NPPN ---
Subjective General Problems: Edema Renal Failure: Acute Additional Remarks Resting in bed with trach, no apparent distress Review of Systems General General Remarks unable to obtain Ears, Nose, & Throat ENT Remarks tongue swelling Objective Data Data 09/15/16 09/16/16 19:00 07:00 Intake Total 1240 ml Output Total 1600 ml 400 ml Balance -1600 ml 840 ml Tube Feeding 640 ml Other 600 ml Output Urine Total 1600 ml 400 ml # Bowel Movements 2 Vital Signs Date Time Temp Pulse Resp B/P Pulse Ox O2 Delivery O2 Flow Rate FiO2 09/16/16 12:00 97.8 75 18 109/60 98 09/16/16 08:28 98 T-piece 21 09/16/16 08:01 98.2 75 22 148/79 99 09/16/16 05:36 96.7 82 19 147/74 98 09/16/16 02:43 18 09/15/16 23:45 75 111/65 09/15/16 22:19 80 134/94 09/15/16 20:46 98.9 87 18 180/90 99 09/15/16 17:07 99.8 112 20 202/95 100 -: 09/16/16 0919 09/16/16 0919 Tubes & Lines: Chacon Physical Exam General Appearance: Well Developed, No Acute Distress, Obese Eyes Eye Exam: Pupils Equal Throat Throat Exam: Oral Mucosa [place] & Moist Pulmonary Resp Exam: Breath Sounds Equal, Crackles, Rhonchi Cardiology CV Exam: Regular, Normal Sinus Rhythm, Good Perfusion Gastrointestinal/Abdomen GI Exam: Non-Tender, Bowel Sounds Present Musculoskeletal MS Exam: Joints Intact, Normal Tone, Unable to Ambulate Integumentary Skin Exam: Clear, Warm, Dry, Intact Extremeties Extremities Exam: Pedal Pulses Palpable, Trace Edema Neurologic Neuro Exam: Awake, Obtunded Assessment/Plan Discussed Condition With: Daughter Assessment Summary: CHRIS/Acute Renal Failure, Acute Tubular Necrosis, Fluid/ Volume Overload, Proteinuria, Hypertension, CKD Stage IV Electrolyte Assessment: Hypernatremia Problem List: (1) Acute worsening of stage 4 chronic kidney disease Plan: Creatinine 3.9-> 3.7- > 3.8 --> 3.6 Lasix stopped. Hyperkalemia potassium replaced UOP good Na 134 - continue free water flushes and 125 cc cc q 8 follow BMP periodically Planning transfer to SNF. Creatinine has been fairly stable for the last 2 weeks. Can check BMP periodically. (2) Hypernatremia Plan: On free water flushes (3) Hypertensive emergency Plan: BP is stable continue oral medications avoid NEGRITO due to CHRIS and angioedema (4) Thalamic hemorrhage Plan: due to hypertensive crisis neurosurgery non surgical management (5) Respiratory failure Plan: s/p trach with T piece appreciate respiratory therapy assistance (6) Anemia, unspecified Plan: Hb stable, Problem Qualifiers (1) Respiratory failure: Qualified Code: J96.00 - Acute respiratory failure, unspecified whether with hypoxia or hypercapnia Bettie Pepper MD Sep 16, 2016 16:17
[2016-09-17] VITALS (10 sets, daily range): BP systolic 112–165; BP diastolic 65–89; PULSE 63–91; RESP 16–23; TEMP 97.6–98.5; O2SAT 98–100
[2016-09-17] MEDS: diphenhydrAMINE HCL ELIXIR 12.5 MG/5 ML CUP PEG SCH ×4 (01:11→21:17)
[2016-09-17] MEDS: NIFEdipine 10 MG CAP NG SCH ×4 (01:11→18:13)
[2016-09-17] MEDS: CHLORHEXIDINE GLUCONATE 2 % 1 PACK (2 CLOTHS) TOP SCH (04:00)
[2016-09-17] MEDS: METOPROLOL TARTRATE 50 MG TAB G-TUBE SCH ×3 (06:53→21:17)
[2016-09-17] MEDS: HEPARIN SODIUM - SQ 10,000 UNITS/ML VIAL SQ SCH ×3 (06:53→21:17)
[2016-09-17] MEDS: glipiZIDE 5 MG TAB G-TUBE SCH ×2 (06:53→15:00)
[2016-09-17] MEDS: hydrALAZINE HCL 100 MG TAB G-TUBE SCH ×3 (06:53→21:19)
[2016-09-17] MEDS: cloNIDine HCL 0.2 MG TAB G-TUBE SCH ×3 (06:53→21:18)
[2016-09-17] MEDS: INSULIN NovoLIN REGULAR SUPPLEMENTAL SCALE SQ SCH ×4 (06:54→21:00)
[2016-09-17] MEDS: INSULIN DETEMIR 100 UNITS/ML VIAL SQ SCH (08:00)
[2016-09-17] MEDS: DOCUSATE SODIUM 50 MG/SENNA 8.6 MG TAB G-TUBE SCH ×2 (09:00→21:00)
[2016-09-17] MEDS: FREE WATER G-TUBE SCH ×3 (09:00→18:00)
[2016-09-17] MEDS: SODIUM CHLORIDE 0.9% FLUSH 10 ML FLUSH SCH ×2 (09:00→21:00)
[2016-09-17] MEDS: predniSONE 5 MG/5 ML CUP PEG SCH (09:24)
[2016-09-17] MEDS: FAMOTIDINE 20 MG TAB G-TUBE SCH ×2 (09:26→21:17)
[2016-09-17] MEDS: INSULIN HUMAN REGULAR 1,000 UNITS/10 ML VIAL SQ SCH ×3 (09:30→17:00)
--- NOTE | 2016-09-17 09:32 | HHI.PR ---
Subjective Remarks Follow-up for left basal ganglia hemorrhagic stroke, DM, and angioedema. Patient seen and examined today, lying in bed, restraints off > 24 hours. Awake and alert, follows commands appropriately in left upper and lower extremity. Denies pain. T-piece in place. Tolerating TF. Tongue swelling minimal, much improved. Afebrile. Positive BM. Objective Vitals Vital Signs Date Time Temp Pulse Resp B/P Pulse Ox O2 Delivery O2 Flow Rate FiO2 09/17/16 08:00 98.5 79 20 136/73 100 09/17/16 04:30 97.8 80 23 145/84 99 09/17/16 00:00 98.0 91 23 130/89 98 09/16/16 20:30 97.9 93 24 120/88 97 09/16/16 19:00 83 09/16/16 16:00 98.7 81 20 139/74 95 09/16/16 12:00 97.8 75 18 109/60 98 I/O 09/16/16 09/16/16 09/16/16 09/17/16 09/17/16 09/17/16 06:59 14:59 22:59 06:59 14:59 22:59 Intake Total 620 ml 740 ml 0 ml Output Total 400 ml 700 ml 500 ml 600 ml Balance 220 ml -700 ml 240 ml -600 ml Intake Oral 0 ml 0 ml Tube Feeding 320 ml 440 ml Other 300 ml 300 ml Output Urine Total 400 ml 700 ml 500 ml 600 ml # Bowel Movements 1 3 1 2 Result Diagram: 09/16/16 0919 09/16/16 0919 Imaging Last Impressions Pelvis CT 09/16/16 0000 Signed Impressions: Service Date/Time: Friday, September 16, 2016 11:24 - CONCLUSION: 1. No evidence for femoral neck fracture. Calvin Uribe MD Hip and Pelvis X-Ray 09/15/16 1507 Signed Impressions: Service Date/Time: Thursday, September 15, 2016 20:11 - CONCLUSION: Findings suggest the possibility of a nondisplaced femoral neck fracture with some irregularity of the trabecular superior aspect of the femoral neck. Benito Tobias MD Chest X-Ray 09/14/16 0000 Signed Impressions: Service Date/Time: Wednesday, September 14, 2016 10:26 - CONCLUSION: No acute disease. Calvin Uribe MD Hand X-Ray 09/12/16 0000 Signed Impressions: Service Date/Time: Monday, September 12, 2016 15:38 - CONCLUSION: Marked soft tissue swelling. Eddie Smith MD FACR Upper Extremity Ultrasound 09/11/16 0000 Signed Impressions: Service Date/Time: August 19:09 - CONCLUSION: 1. Large complex fluid collection on the posterior hand and concern for abscess or seroma. 2. Superficial venous thrombus in the distal right cephalic vein at the level of the wrist. 3. No evidence of deep venous thrombosis. Amor Uriarte MD Renal Ultrasound 08/18/16 0000 Signed Impressions: Service Date/Time: Thursday, August 18, 2016 20:22 - CONCLUSION: 1. Small echogenic kidneys typical of chronic parenchymal disease. No evidence of obstructive uropathy or other acute renal abnormality. 2. [place] in the bladder, grossly unremarkable. 3. Apparent small retroperitoneal free fluid, etiology uncertain. Estrada Dunham MD Abdomen X-Ray 08/16/16 0000 Signed Impressions: Service Date/Time: Tuesday, August 16, 2016 08:05 - CONCLUSION: Is a chest tube tip in stomach. Side port in the region of the gastroesophageal junction. Jhony Kirkpatrick MD Head CT 08/13/16 0800 Signed Impressions: Service Date/Time: Saturday, August 13, 2016 04:37 - CONCLUSION: Stable brain appearance Estrada Snow MD Objective Remarks GENERAL: Pt laying in bed, non-verbal, T-piece in place. In NAD. SKIN: Warm and dry. HEAD: Normocephalic. Pt with left sided bite guard present. Tongue swelling minimal. EYES: No scleral icterus. No injection or drainage. NECK: Supple, trachea midline. CARDIOVASCULAR: Regular rate and rhythm. No murmur appreciated. RESPIRATORY: Breath sounds equal bilaterally. No accessory muscle use. GASTROINTESTINAL: Abdomen soft, non-tender, nondistended. PEG site clean/d/i. MUSCULOSKELETAL: No cyanosis, or edema. Bilateral left upper and lower extremity following commands, right side hemiplegia noted. PSYCHIATRIC: Awake and alert, responds to commands. Nodding appropriately. Tracking with eyes. Procedures Intubation 08/12/16 Tracheostomy 08/21/16 Peg Tube placement 08/25/16 Urinary Catheter: Yes Assessment to: Continue Date of Insertion: Sep 15, 2016 A/P Problem List: (1) Left basal ganglia hemorrhage Status: Acute (2) Hemorrhagic stroke ICD Code: I61.9 Status: Acute (3) Acute respiratory failure ICD Code: J96.00 Status: Acute (4) HCAP (healthcare-associated pneumonia) ICD Code: J18.9 Status: Acute (5) Angioedema ICD Code: T78.3XXA Status: Acute (6) Hypertensive emergency ICD Code: I16.1 Status: Acute (7) Hypernatremia ICD Code: E87.0 Status: Acute (8) Acute kidney failure ICD Code: N17.9 Status: Acute Assessment and Plan 56-year-old female admitted secondary to basal ganglia hemorrhage related to hypertension. Status post lisinopril reaction with angioedema. Also admitted related to hypertensive urgency. Angioedema is improving slowly. Acute blood loss discovered last afternoon. Patient transfused 3 units of packed red blood cells 08/30/16. Acute hemorrhagic basal ganglia stroke Acute encephalopathy, improving - Maintain blood pressure control with systolic goal less than 160 mmHg - Follow neurological status. - Encephalopathy improving. - Neurosurgeon signed off, no further management. - Continue physical therapy/OT Hypoxic respiratory failure, acute on chronic - Pulmonary following, appreciate input. - Trach replaced to #6 fenestrated cuffless trach 09/15/16. Attempt PMV. - Continue oxygenation via tracheostomy - Continue tracheostomy care - Pulmonary toilet - Wean FiO2 as tolerated - Continue scheduled and PRN Duonebs. Severe Angioedema suspect secondary to RODGER. Improving. - Avoid Rodger inhibitors - Continue Prednisone 10 mg daily for 6 days. Assess tongue swelling throughout taper. - Continue Benadryl. - Monitor. Left hip pain suspect secondary to prior fall - CT pelvis/hip obtained and reviewed showing no signs of femoral fracture. - Control pain. [place] 5/325 mg PO q4h and 10/325 mg PO PRN per pain scale. Dilaudid 0.75 mg IV q4h PRN breakthrough pain. Denies any current pain. Anemia suspect secondary to acute blood loss: Resolved. - H/H stable. -Status post 3 units of packed red blood cells transfused 08/30/16. Hypertension, chronic: uncontrolled suspect secondary to hip pain Recent hypertensive urgency - More controlled today. - Continue metoprolol, hydralazine, clonidine, nifedipine - Hydralazine 25 mg PO q6h PRN and clonidine 0.3 mg q6h PRN sys >180/ diastolic>100, Hold HR<60. Acute on chronic renal failure CKD stage IV - Nephrology signed off. BMP stable for several weeks. Reconsult if needed. - Monitor I's and O's - Maintain Chacon catheter - Avoid nephrotoxins. Hypokalemia: BMP reviewed today, K 3.4 today 09/17/16 after replacement. Give another KCL eff 25 meq PO x 1. Recheck in am. Follow. Leukocytosis suspect secondary to steroids: WBC 13.7 --> 16.7. Afebrile. No signs of infection. Mild bandemia. Will recheck in am. Follow. Protein calorie malnutrition: Continue tube feedings and Gonzalo supplementation. MSSA pneumonia, resolved: Treatment completed. Escherichia coli UTI, resolved: Treated with Rocephin 1 GM Daily Diabetes mellitus type 2 Uncontrolled suspect secondary to steroid use. - Levemir 40 units every morning. - ACCU checks q4h, continue Sliding scale insulin moderate scale, cover as needed. - Increase prandial insulin 4 units sq TIDAC. Monitor closely. - Patient still continued on prednisone, may be causing hyperglycemia. Once dc'd, monitor closely. - Continue tube feedings. - A1c noted to be 6.4 Right hand abscess versus seroma - Hand surgery has been consulted, Dr. Sawant, who has no indication for surgical intervention. Recommendations for light compressive rodger wrap to right hand and follow up in outpatient setting. - Hand wound cultures sent and pending. Right arm superficial venous thrombosis - Per US of 09/11/16, distal cephalic vein thrombus at level of the wrist noted. DVT prophylaxis: SCDs and subcutaneous heparin. 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 Trevizo. Discharge Planning Patient off restraints > 24 hours currently. Last CM note: 09/15/16 3:00pm: Pt accepted to [facility] once she is off of restraints for 72 hours. Once pt is off restraints for 72 hours they will submit for an auth from [facility]. Nicole stated that they would be able to obtain auth same day. CM will follow for pt to be off restraints and be able to discharge to [facility]. Ashley Pickens Sep 17, 2016 09:32
--- NOTE | 2016-09-17 10:31 | HHI.NPPN ---
Subjective General Problems: Edema, Hypertension Renal Failure: Acute Interval History Sitting up working with therapy. No acute nursing concerns. (Miguelina Walsh) Review of Systems General General Remarks unable to obtain (Miguelina Walsh) Ears, Nose, & Throat ENT Remarks tongue swelling (Miguelina Walsh) Objective Data Data 09/16/16 09/17/16 19:00 07:00 Intake Total 740 ml Output Total 700 ml 1100 ml Balance -700 ml -360 ml Intake Oral 0 ml Tube Feeding 440 ml Other 300 ml Output Urine Total 700 ml 1100 ml # Bowel Movements 3 3 Vital Signs Date Time Temp Pulse Resp B/P Pulse Ox O2 Delivery O2 Flow Rate FiO2 09/17/16 08:00 98.5 79 20 136/73 100 09/17/16 04:30 97.8 80 23 145/84 99 09/17/16 00:00 98.0 91 23 130/89 98 09/16/16 20:30 97.9 93 24 120/88 97 09/16/16 19:00 83 09/16/16 16:00 98.7 81 20 139/74 95 09/16/16 12:00 97.8 75 18 109/60 98 (Miguelina Walsh) -: 09/16/16 0919 09/16/16 0919 Imaging Last [address] 09/16/16 0000 Signed Impressions: Service Date/Time: Friday, September 16, 2016 11:24 - CONCLUSION: 1. No evidence for femoral neck fracture. Calvin Uribe MD Hip and Pelvis X-Ray 09/15/16 1507 Signed Impressions: Service Date/Time: Thursday, September 15, 2016 20:11 - CONCLUSION: Findings suggest the possibility of a nondisplaced femoral neck fracture with some irregularity of the trabecular superior aspect of the femoral neck. Benito Tobias MD Tubes & Lines: [place] (Miguelina Walsh) Physical Exam General Appearance: Well Developed, No Acute Distress, Comfortable, Obese (Miguelina Walsh) Eyes Eye Exam: Pupils Equal (Miguelina Walsh) Throat Throat Exam: Oral Mucosa [place] & Moist Throat Remarks +trach (Miguelina Walsh) Pulmonary Resp Exam: Breath Sounds Equal, Crackles, Rhonchi (Miguelina Walsh) Cardiology CV Exam: Regular, Normal Sinus Rhythm, Good Perfusion (Miguelina Walsh) Gastrointestinal/Abdomen GI Exam: Non-Tender, Bowel Sounds Present GI Remarks obese + PEG (Miguelina WalshP) Musculoskeletal MS Exam: Joints Intact, Normal Tone, Unable to Ambulate (Miguelina Walsh) Integumentary Skin Exam: Clear, Warm, Dry, Intact (Miguelina Walsh) Extremeties Extremities Exam: No Edema, Pedal Pulses Palpable (Miguelina Walsh) Neurologic Neuro Exam: Awake, Obtunded Neuro Remarks leftward eye gaze/deviation right side flaccid (Miguelina Walsh) Assessment/Plan Discussed Condition With: Daughter Assessment Summary: CHRIS/Acute Renal Failure, Acute Tubular Necrosis, Proteinuria, Hypertension, CKD Stage IV Problem List: (1) Acute worsening of stage 4 chronic kidney disease Plan: she was admitted with CHRIS and had advanced underlying renal dysfunction on admission her renal function has stabilized she makes a good amount of urine, diuretics have been stopped she does not require dialysis support at this time obtain intermittent metabolic profile correct electrolytes as needed IVF not required (2) Hypernatremia Plan: monitor serum Na continue free water flushes with tube feeding (3) Hypertensive emergency Plan: BP is stable continue oral medications avoid NEGRITO due to recent angioedema (4) Thalamic hemorrhage Plan: due to hypertensive crisis neurosurgery non surgical management (5) Respiratory failure Plan: s/p trach with T piece appreciate respiratory therapy assistance (6) Anemia, unspecified Plan: Hb stable, (Miguelina Walsh) Plan patient was seen and examined. Stable but poor renal function. No immediate need for dialysis. Monitor electrolytes. (Jamal Salazar MD) Problem Qualifiers (1) Respiratory failure: Qualified Code: J96.00 - Acute respiratory failure, unspecified whether with hypoxia or hypercapnia Miguelina Walsh Sep 17, 2016 10:31 Jamal Salazar MD Sep 17, 2016 17:28
[2016-09-17 11:47] LABS: BICARBONATE 25.8 MEQ/L (21.0-32.0); POTASSIUM 3.4 MEQ/L (3.5-5.1)
[2016-09-17] MEDS: ACETAMINOPHEN/HYDROcodone 325 MG/10 MG TAB PEG PRN ×2 (12:28→21:18)
[2016-09-17] MEDS ORDERED: POTASSIUM CHLORIDE 25 MEQ EFFERVESCENT TAB PO ONE (13:30)
--- NOTE | 2016-09-17 15:31 | HHI.PR ---
Subjective Remarks ass: IC BLEED S/P TRACH NO DISTRESS tongue swelling seems less Objective Vital Signs Date Time Temp Pulse Resp B/P Pulse Ox O2 Delivery O2 Flow Rate FiO2 09/17/16 13:30 16 09/17/16 12:35 81 123/70 100 09/17/16 12:00 98.2 77 19 132/65 98 09/17/16 10:01 98 T-piece 5.00 21 09/17/16 08:00 98.5 79 20 136/73 100 09/17/16 04:30 97.8 80 23 145/84 99 09/17/16 00:00 98.0 91 23 130/89 98 09/16/16 20:30 97.9 93 24 120/88 97 09/16/16 19:00 83 09/16/16 16:00 98.7 81 20 139/74 95 I/O 09/16/16 09/16/16 09/16/16 09/17/16 09/17/16 09/17/16 07:00 15:00 23:00 07:00 15:00 23:00 Intake Total 620 ml 740 ml 0 ml Output Total 400 ml 700 ml 500 ml 600 ml Balance 220 ml -700 ml 240 ml -600 ml Intake Oral 0 ml 0 ml Tube Feeding 320 ml 440 ml Other 300 ml 300 ml Output Urine Total 400 ml 700 ml 500 ml 600 ml # Bowel Movements 1 3 1 2 Result Diagram: 09/16/16 0919 09/17/16 1025 Procedures Endotracheal Intubation and extubation Tracheostomy PEG tube placement. Objective Remarks GENERAL: SKIN: Warm and dry. HEAD: Atraumatic. Normocephalic. tongue protruding EYES: Pupils equal and round. No scleral icterus. No injection or drainage. ENT: No nasal bleeding or discharge. Mucous membranes pink and moist. NECK: Trachea midline. trach in place . CARDIOVASCULAR: Regular rate and rhythm. RESPIRATORY: No accessory muscle use. Clear to auscultation. Breath sounds equal bilaterally. GASTROINTESTINAL: Abdomen soft, non-tender, nondistended. Hepatic and splenic margins not palpable. MUSCULOSKELETAL: Extremities without clubbing, cyanosis, or edema. No obvious deformities. NEUROLOGICAL: Awake and alert. No obvious cranial nerve deficits. Motor grossly within normal limits. Five out of 5 muscle strength in the arms and legs. Normal speech. PSYCHIATRIC: Appropriate mood and affect; insight and judgment normal. Assessment and Plan Assessment and Plan ass respiratory failure S/P IC bleed S/P Tracheostomy plan: O2 as needed pulmonary toilet WILL KEEP TRACH IN [place] TONGUE IS OBSTRUCTING AIRWAY ok for d/c to [facility] facility Remove trach. when possible Bianca Valenzuela MD Sep 17, 2016 15:31
[2016-09-18] VITALS (7 sets, daily range): BP systolic 123–199; BP diastolic 74–113; PULSE 78–89; RESP 16–21; TEMP 96.9–98.4; O2SAT 97–100
[2016-09-18] MEDS: diphenhydrAMINE HCL ELIXIR 12.5 MG/5 ML CUP PEG SCH ×4 (01:34→21:05)
[2016-09-18] MEDS: NIFEdipine 10 MG CAP NG SCH ×4 (01:34→16:50)
[2016-09-18] MEDS: CHLORHEXIDINE GLUCONATE 2 % 1 PACK (2 CLOTHS) TOP SCH (04:00)
[2016-09-18] MEDS: hydrALAZINE HCL 100 MG TAB G-TUBE SCH ×3 (06:58→21:05)
[2016-09-18] MEDS: METOPROLOL TARTRATE 50 MG TAB G-TUBE SCH ×3 (06:58→21:06)
[2016-09-18] MEDS: cloNIDine HCL 0.2 MG TAB G-TUBE SCH ×3 (06:58→21:06)
[2016-09-18] MEDS: HEPARIN SODIUM - SQ 10,000 UNITS/ML VIAL SQ SCH ×3 (06:58→21:05)
[2016-09-18] MEDS: INSULIN NovoLIN REGULAR SUPPLEMENTAL SCALE SQ SCH ×4 (07:00→21:00)
[2016-09-18] MEDS: glipiZIDE 5 MG TAB G-TUBE SCH ×2 (07:00→16:50)
[2016-09-18] MEDS: ACETAMINOPHEN/HYDROcodone 325 MG/10 MG TAB PEG PRN ×3 (07:24→18:26)
[2016-09-18] MEDS: INSULIN HUMAN REGULAR 1,000 UNITS/10 ML VIAL SQ SCH ×3 (08:00→17:00)
[2016-09-18] MEDS: INSULIN DETEMIR 100 UNITS/ML VIAL SQ SCH (08:00)
[2016-09-18] MEDS: predniSONE 5 MG/5 ML CUP PEG SCH (08:16)
[2016-09-18] MEDS: FAMOTIDINE 20 MG TAB G-TUBE SCH ×2 (08:17→21:05)
[2016-09-18 08:18] LABS: BASOPHIL # 0.1 TH/MM3 (0-0.2); BASOPHIL % 0.4 % (0.0-2.0); EOSINOPHIL # 0.7 TH/MM3 (0-0.4); EOSINOPHIL % 4.1 % (0.0-4.0); HEMATOCRIT 34.1 % (35.0-46.0); LYMPH % 7.9 % (9.0-44.0); LYMPHOCYTE # 1.3 TH/MM3 (1.0-4.8); MEAN CELL VOLUME 91.1 FL (80.0-100.0); MEAN CORPUSCULAR HEMOGLOBIN 29.6 PG (27.0-34.0); MEAN CORPUSCULAR HGB CONC 32.5 % (32.0-36.0); MONO % 6.4 % (0.0-8.0); NEUT % 81.2 % (16.0-70.0); PLATELET COUNT 243 TH/MM3 (150-450); RED BLOOD COUNT 3.74 MIL/MM3 (4.00-5.30); RED CELL DISTRIBUTION WIDTH 15.8 % (11.6-17.2); WHITE BLOOD COUNT 16.1 TH/MM3 (4.0-11.0)
[2016-09-18] MEDS: SODIUM CHLORIDE 0.9% FLUSH 10 ML FLUSH SCH ×2 (08:18→21:00)
[2016-09-18] MEDS: FREE WATER G-TUBE SCH ×2 (08:18→21:00)
[2016-09-18] MEDS: DOCUSATE SODIUM 50 MG/SENNA 8.6 MG TAB G-TUBE SCH ×2 (08:23→21:06)
[2016-09-18 08:24] LABS: HEMO FLAGS AUTO DIFF
[2016-09-18 08:31] LABS: BICARBONATE 23.1 MEQ/L (21.0-32.0); POTASSIUM 3.9 MEQ/L (3.5-5.1)
[2016-09-18 09:43] LABS: BANDS 2 % (0-6); EOSINOPHILS 6 % (0-4); METAMYELOCYTES 1 % (0-1); NEUTROPHIL # MANUAL DIFF 13.7 TH/MM3 (1.8-7.7); POLYS (SEG NEUTROPHILS) 82 % (16-70); WBC DIFF SAMPLE 100
[2016-09-18 09:44] LABS: PLATELET ESTIMATE SMEAR NORMAL (NORMAL); PLATELET MORPHOLOGY NORMAL (NORMAL); SCAN/DIFF FINAL DIFF MANUAL
--- NOTE | 2016-09-18 11:23 | HHI.NPPN ---
Subjective General Problems: Hypertension Renal Failure: Chronic, Acute Interval History Angioedema has resolved. The patient nods head yes/no to questions, which is an improvement. Creatinine is better. (Miguelina Walsh) Review of Systems General General Remarks no pain (Miguelina Walsh) Ears, Nose, & Throat ENT Remarks tongue swelling (Miguelina Walsh) Objective Data Data 09/17/16 09/18/16 19:00 07:00 Output Total 500 ml 800 ml Balance -500 ml -800 ml Output Urine Total 500 ml 800 ml # Bowel Movements 5 2 Vital Signs Date Time Temp Pulse Resp B/P Pulse Ox O2 Delivery O2 Flow Rate FiO2 09/18/16 08:17 97 T-piece 21 09/18/16 08:17 14 09/18/16 08:00 98.4 82 19 130/74 97 09/18/16 05:35 99 T-Piece 28 09/18/16 04:00 97.4 81 16 123/85 100 09/18/16 01:00 99 T-Piece 28 09/17/16 21:29 97.6 72 18 165/74 100 09/17/16 19:00 63 09/17/16 18:18 99 6.00 21 09/17/16 16:00 97.9 82 16 112/71 99 09/17/16 12:35 81 123/70 100 09/17/16 12:00 98.2 77 19 132/65 98 (Miguelina Walsh) -: 09/18/16 0742 09/18/16 0742 Imaging Last [address] 09/16/16 0000 Signed Impressions: Service Date/Time: Friday, September 16, 2016 11:24 - CONCLUSION: 1. No evidence for femoral neck fracture. Calvin Uribe MD Hip and Pelvis X-Ray 09/15/16 1507 Signed Impressions: Service Date/Time: Thursday, September 15, 2016 20:11 - CONCLUSION: Findings suggest the possibility of a nondisplaced femoral neck fracture with some irregularity of the trabecular superior aspect of the femoral neck. Benito Tobias MD Tubes & Lines: [place] (Miguelina Walsh) Physical Exam General Appearance: Well Developed, No Acute Distress, Comfortable, Obese (Miguelina Walsh B. [employer]) Eyes Eye Exam: Pupils Equal (Miguelina Walsh B. [employer]) Throat Throat Exam: Oral Mucosa [place] & Moist Throat Remarks +trach (Miguelina Walsh B. [employer]) Pulmonary Resp Exam: Breath Sounds Equal, Crackles, Rhonchi (Miguelina Walsh B. [employer]) Cardiology CV Exam: Regular, Normal Sinus Rhythm, Good Perfusion (Miguelina Walsh B. [employer]) Gastrointestinal/Abdomen GI Exam: Non-Tender, Bowel Sounds Present GI Remarks obese + PEG (Miguelina Walsh B. [employer]) Musculoskeletal MS Exam: Joints Intact, Normal Tone, Unable to Ambulate (Miguelina Walsh B. [employer]) Integumentary Skin Exam: Clear, Warm, Dry, Intact (Miguelina Walsh B. [employer]) Extremeties Extremities Exam: No Edema, Pedal Pulses Palpable (Miguelina Walsh B. [employer]) Neurologic Neuro Exam: Awake, Obtunded Neuro Remarks leftward eye gaze/deviation right side flaccid (Miguelina Walsh B. [employer]) Assessment/Plan Assessment Summary: CHRIS/Acute Renal Failure, Proteinuria, Hypertension, CKD Stage IV Problem List: (1) Acute worsening of stage 4 chronic kidney disease Plan: she was admitted with CHRIS and had advanced underlying renal dysfunction on admission her renal function is stable, slightly improved today she makes a good amount of urine, diuretics have been stopped she does not require dialysis support at this time obtain intermittent metabolic profile correct electrolytes as needed IVF not required (2) Hypernatremia Plan: monitor serum Na, previously hypernatremic continue free water flushes with tube feeding , reduced to 100 ml BID (3) Hypertensive emergency Plan: BP is stable continue oral medications avoid NEGRITO due to recent angioedema (4) Thalamic hemorrhage Plan: due to hypertensive crisis neurosurgery non surgical management (5) Respiratory failure Plan: s/p trach with T piece appreciate respiratory therapy assistance angioedema has resolved (6) Anemia, unspecified Plan: Hb stable, monitor (Miguelina Walsh B. [employer]) Plan patient was seen and examined. Agree with above assessment and plan. (Jamal Salazar MD) Problem Qualifiers (1) Respiratory failure: Qualified Code: J96.00 - Acute respiratory failure, unspecified whether with hypoxia or hypercapnia Miguelina Walsh Sep 18, 2016 11:23 Jamal Salazar MD Sep 19, 2016 15:24
--- NOTE | 2016-09-18 12:09 | HHI.PR ---
Subjective Remarks Follow-up for left basal ganglia hemorrhagic stroke, DM, and angioedema. Patient seen and examined today, lying in bed comfortably. Patient nods appropriately, denies any pain. Patient following commands in left upper and lower extremity, right upper and lower extremity flaccid. T-piece continued in place. Afebrile. Continued TF. Patient expressing some anxiety and tearful when updated and spoke to about regarding plan of care and possibility of discharging to SNF. Attempted to reassure. Objective Vitals Vital Signs Date Time Temp Pulse Resp B/P Pulse Ox O2 Delivery O2 Flow Rate FiO2 09/18/16 08:17 97 T-piece 21 09/18/16 08:17 14 09/18/16 08:00 98.4 82 19 130/74 97 09/18/16 05:35 99 T-Piece 09/18/16 04:00 97.4 81 16 123/85 100 09/18/16 01:00 99 T-Piece 09/17/16 21:29 97.6 72 18 165/74 100 09/17/16 19:00 63 09/17/16 18:18 99 6.00 21 09/17/16 16:00 97.9 82 16 112/71 99 09/17/16 12:35 81 123/70 100 I/O 09/17/16 09/17/16 09/17/16 09/18/16 09/18/16 09/18/16 07:00 15:00 23:00 07:00 15:00 23:00 Intake Total 0 ml 160 ml Output Total 600 ml 500 ml 800 ml Balance -600 ml -500 ml -800 ml 160 ml Intake Oral 0 ml Tube Feeding 0 ml Other 160 ml Output Urine Total 600 ml 500 ml 800 ml # Bowel Movements 2 5 2 Result Diagram: 09/18/16 0742 09/18/16 0742 Imaging Last Impressions Pelvis CT 09/16/16 0000 Signed Impressions: Service Date/Time: Friday, September 16, 2016 11:24 - CONCLUSION: 1. No evidence for femoral neck fracture. Calvin Uribe MD Hip and Pelvis X-Ray 09/15/16 1507 Signed Impressions: Service Date/Time: Thursday, September 15, 2016 20:11 - CONCLUSION: Findings suggest the possibility of a nondisplaced femoral neck fracture with some irregularity of the trabecular superior aspect of the femoral neck. Benito Tobias MD Chest X-Ray 09/14/16 0000 Signed Impressions: Service Date/Time: Wednesday, September 14, 2016 10:26 - CONCLUSION: No acute disease. Calvin Uribe MD Hand X-Ray 09/12/16 0000 Signed Impressions: Service Date/Time: Monday, September 12, 2016 15:38 - CONCLUSION: Marked soft tissue swelling. Eddie Smith MD FACR Upper Extremity Ultrasound 09/11/16 0000 Signed Impressions: Service Date/Time: August 19:09 - CONCLUSION: 1. Large complex fluid collection on the posterior hand and concern for abscess or seroma. 2. Superficial venous thrombus in the distal right cephalic vein at the level of the wrist. 3. No evidence of deep venous thrombosis. Amor Uriarte MD Renal Ultrasound 08/18/16 0000 Signed Impressions: Service Date/Time: Thursday, August 18, 2016 20:22 - CONCLUSION: 1. Small echogenic kidneys typical of chronic parenchymal disease. No evidence of obstructive uropathy or other acute renal abnormality. 2. Chacon in the bladder, grossly unremarkable. 3. Apparent small retroperitoneal free fluid, etiology uncertain. Estrada Dunham MD Abdomen X-Ray 08/16/16 0000 Signed Impressions: Service Date/Time: Tuesday, August 16, 2016 08:05 - CONCLUSION: Is a chest tube tip in stomach. Side port in the region of the gastroesophageal junction. Jhony Kirkpatrick MD Head CT 08/13/16 0800 Signed Impressions: Service Date/Time: Saturday, August 13, 2016 04:37 - CONCLUSION: Stable brain appearance Estrada Snow MD Objective Remarks GENERAL: Pt laying in bed, non-verbal, T-piece in place. In NAD at the time. SKIN: Warm and dry. HEAD: Normocephalic. Pt with left sided bite guard present. Tongue swelling minimal almost resolved. EYES: No scleral icterus. No injection or drainage. NECK: Supple, trachea midline. CARDIOVASCULAR: Regular rate and rhythm. No murmur appreciated. RESPIRATORY: Breath sounds equal bilaterally. No accessory muscle use. GASTROINTESTINAL: Abdomen soft, non-tender, nondistended. PEG site clean/d/i. MUSCULOSKELETAL: No cyanosis, or edema. Bilateral left upper and lower extremity following commands, right side hemiplegia noted. PSYCHIATRIC: Awake and alert, responds to commands. Nodding appropriately. Tracking with eyes. Procedures Intubation 08/12/16 Tracheostomy 08/21/16 Peg Tube placement 08/25/16 Date of Insertion: Sep 15, 2016 A/P Problem List: (1) Left basal ganglia hemorrhage Status: Acute (2) Hemorrhagic stroke ICD Code: I61.9 Status: Acute (3) Acute respiratory failure ICD Code: J96.00 Status: Acute (4) HCAP (healthcare-associated pneumonia) ICD Code: J18.9 Status: Acute (5) Angioedema ICD Code: T78.3XXA Status: Acute (6) Hypertensive emergency ICD Code: I16.1 Status: Acute (7) Hypernatremia ICD Code: E87.0 Status: Acute (8) Acute kidney failure ICD Code: N17.9 Status: Acute Assessment and Plan 56-year-old female admitted secondary to basal ganglia hemorrhage related to hypertension. Status post lisinopril reaction with angioedema. Also admitted related to hypertensive urgency. Angioedema is improving slowly. Acute blood loss discovered last afternoon. Patient transfused 3 units of packed red blood cells 08/30/16. Acute hemorrhagic basal ganglia stroke Acute encephalopathy, improving - Maintain blood pressure control with systolic goal less than 160 mmHg - Follow neurological status. - Encephalopathy improving. - Neurosurgeon signed off, no further management. - Continue physical therapy/OT Hypoxic respiratory failure, acute on chronic - Pulmonary following, appreciate input. - Trach replaced to #6 fenestrated cuffless trach 09/15/16. Attempt PMV. - Continue oxygenation via tracheostomy - Continue tracheostomy care - Pulmonary toilet - Wean FiO2 as tolerated - Continue scheduled and PRN Duonebs. Severe Angioedema suspect secondary to RODGER. Improving. - Avoid Rodger inhibitors - Continue Prednisone 10 mg daily for 6 days. Assess tongue swelling throughout taper. - Continue Benadryl. - Monitor. Left hip pain suspect secondary to prior fall - CT pelvis/hip obtained and reviewed showing no signs of femoral fracture. - Control pain. [place] 5/325 mg PO q4h and 10/325 mg PO PRN per pain scale. Dilaudid 0.75 mg IV q4h PRN breakthrough pain. Denies any current pain. Anemia suspect secondary to acute blood loss: Resolved. - H/H stable. - Status post 3 units of packed red blood cells transfused 08/30/16. Hypertension, chronic: uncontrolled suspect secondary to hip pain Recent hypertensive urgency - More controlled today. - Continue metoprolol, hydralazine, clonidine, nifedipine - Hydralazine 25 mg PO q6h PRN and clonidine 0.3 mg q6h PRN sys >180/ diastolic>100, Hold HR<60. Acute on chronic renal failure CKD stage IV - Nephrology signed off. BMP stable for several weeks. Reconsult if needed. - Monitor I's and O's - Maintain Chacon catheter - Avoid nephrotoxins. Hypokalemia: BMP reviewed today, K 3.9, normal post supplementation. Leukocytosis suspect secondary to steroids: CBC reviewed today, WBC 13.7 --> 16.7 --> 16.1. Afebrile. No signs of infection. Mild bandemia. Protein calorie malnutrition: Continue tube feedings and Gonzalo supplementation. MSSA pneumonia, resolved: Treatment completed. Escherichia coli UTI, resolved: Treated with Rocephin 1 GM Daily Diabetes mellitus type 2 Uncontrolled suspect secondary to steroid use. - Levemir 40 units every morning. - ACCU checks q4h, continue Sliding scale insulin moderate scale, cover as needed. - Increase prandial insulin 4 units sq TIDAC. Monitor closely. - Patient still continued on prednisone, may be causing hyperglycemia. Once dc'd, monitor closely. - Continue tube feedings. - A1c noted to be 6.4 Right hand abscess versus seroma - Hand surgery has been consulted, Dr. Sawant, who has no indication for surgical intervention. Recommendations for light compressive rodger wrap to right hand and follow up in outpatient setting. - Hand wound cultures sent and pending. Right arm superficial venous thrombosis - Per US of 09/11/16, distal cephalic vein thrombus at level of the wrist noted. DVT prophylaxis: SCDs and subcutaneous heparin. GI prophylaxis: Pepcid Discharge Planning Patient off restraints > 48 hours currently. Last CM note: 09/18/16- Jason Rivera/Arash- she is contacting [employer] for [facility]. Attending Statement Seen in her bedroom and evaluated, discussed with RENETTA Clayton Nelia and will follow in am for probable discharge, stable will continue present care for blood pressure, at this time unstable adjusted blood pressure medicines. Ashley Pickens Sep 18, 2016 12:09 Rick Barba MD Sep 19, 2016 12:20
[2016-09-18] MEDS: cloNIDine HCL 0.3 MG/24 HR PATCH T-DERMAL SCH (12:10)
[2016-09-18] MEDS: REMOVE OLD CATAPRES (CLONIDINE) PATCH T-DERMAL SCH (12:11)
--- NOTE | 2016-09-18 15:20 | HHI.PR ---
Subjective Remarks ass: IC BLEED S/P TRACH NO DISTRESS tongue swelling seems less Objective Vital Signs Date Time Temp Pulse Resp B/P Pulse Ox O2 Delivery O2 Flow Rate FiO2 09/18/16 13:24 21 09/18/16 12:00 97.7 84 20 160/86 98 09/18/16 08:17 97 T-piece 21 09/18/16 08:17 14 09/18/16 08:00 98.4 82 19 130/74 97 09/18/16 05:35 99 T-Piece 09/18/16 04:00 97.4 81 16 123/85 100 09/18/16 01:00 99 T-Piece 09/17/16 21:29 97.6 72 18 165/74 100 09/17/16 19:00 63 09/17/16 18:18 99 6.00 21 09/17/16 16:00 97.9 82 16 112/71 99 I/O 09/17/16 09/17/16 09/17/16 09/18/16 09/18/16 09/18/16 07:00 15:00 23:00 07:00 15:00 23:00 Intake Total 0 ml 160 ml Output Total 600 ml 500 ml 800 ml Balance -600 ml -500 ml -800 ml 160 ml Intake Oral 0 ml Tube Feeding 0 ml Other 160 ml Output Urine Total 600 ml 500 ml 800 ml # Bowel Movements 2 5 2 Result Diagram: 09/18/1642 09/18/16 0742 Procedures Endotracheal Intubation and extubation Tracheostomy PEG tube placement. Objective Remarks GENERAL: SKIN: Warm and dry. HEAD: Atraumatic. Normocephalic. tongue protruding EYES: Pupils equal and round. No scleral icterus. No injection or drainage. ENT: No nasal bleeding or discharge. Mucous membranes pink and moist. NECK: Trachea midline. trach in place . CARDIOVASCULAR: Regular rate and rhythm. RESPIRATORY: No accessory muscle use. Clear to auscultation. Breath sounds equal bilaterally. GASTROINTESTINAL: Abdomen soft, non-tender, nondistended. Hepatic and splenic margins not palpable. MUSCULOSKELETAL: Extremities without clubbing, cyanosis, or edema. No obvious deformities. NEUROLOGICAL: Awake and alert. No obvious cranial nerve deficits. Motor grossly within normal limits. Five out of 5 muscle strength in the arms and legs. Normal speech. PSYCHIATRIC: Appropriate mood and affect; insight and judgment normal. Assessment and Plan Assessment and Plan ass respiratory failure S/P IC bleed S/P Tracheostomy plan: O2 as needed pulmonary toilet WILL KEEP TRACH IN [place] TONGUE IS OBSTRUCTING AIRWAY ok for d/c to [facility] facility Remove trach. when possible Bianca Valenzuela MD Sep 18, 2016 15:20
[2016-09-19] VITALS: BP 199/113; PULSE 89; RESP 20; TEMP 97.7; O2SAT 99
[2016-09-19] MEDS: ACETAMINOPHEN/HYDROcodone 325 MG/10 MG TAB PEG PRN (01:30)
[2016-09-19] MEDS: NIFEdipine 10 MG CAP NG SCH ×3 (01:30→12:27)
[2016-09-19] MEDS: diphenhydrAMINE HCL ELIXIR 12.5 MG/5 ML CUP PEG SCH ×3 (01:30→14:00)
[2016-09-19 04:00] VITALS: BP 187/88; PULSE 88; RESP 20; TEMP 97.8; O2SAT 100
[2016-09-19] MEDS: CHLORHEXIDINE GLUCONATE 2 % 1 PACK (2 CLOTHS) TOP SCH (04:00)
[2016-09-19] MEDS: INSULIN NovoLIN REGULAR SUPPLEMENTAL SCALE SQ SCH ×2 (07:00→11:00)
[2016-09-19] MEDS: METOPROLOL TARTRATE 50 MG TAB G-TUBE SCH (07:05)
[2016-09-19] MEDS: HEPARIN SODIUM - SQ 10,000 UNITS/ML VIAL SQ SCH ×2 (07:05→14:00)
[2016-09-19] MEDS: hydrALAZINE HCL 100 MG TAB G-TUBE SCH ×2 (07:05→13:59)
[2016-09-19] MEDS: cloNIDine HCL 0.2 MG TAB G-TUBE SCH (07:05)
[2016-09-19] MEDS: glipiZIDE 5 MG TAB G-TUBE SCH (07:06)
[2016-09-19 08:00] VITALS: BP 136/65; PULSE 75; RESP 18; TEMP 98.2; O2SAT 99
[2016-09-19] MEDS: INSULIN DETEMIR 100 UNITS/ML VIAL SQ SCH (08:00)
[2016-09-19] MEDS: INSULIN HUMAN REGULAR 1,000 UNITS/10 ML VIAL SQ SCH ×2 (08:00→12:00)
[2016-09-19] MEDS: FREE WATER G-TUBE SCH (09:00)
[2016-09-19 09:48] VITALS: PULSE 88
[2016-09-19] MEDS: FAMOTIDINE 20 MG TAB G-TUBE SCH (10:05)
[2016-09-19] MEDS: DOCUSATE SODIUM 50 MG/SENNA 8.6 MG TAB G-TUBE SCH (10:05)
[2016-09-19] MEDS: predniSONE 5 MG/5 ML CUP PEG SCH (10:06)
[2016-09-19] MEDS: SODIUM CHLORIDE 0.9% FLUSH 10 ML FLUSH SCH (10:06)
[2016-09-19 10:30] VITALS: O2SAT 100
[2016-09-19] MEDS ORDERED: CARVEDILOL 6.25 MG TAB PO SCH (10:30)
--- NOTE | 2016-09-19 10:43 | HHI.PR ---
Subjective Remarks Follow-up for left basal ganglia hemorrhagic stroke, DM, and angioedema. Patient seen and examined. Lying comfortably in bed, no apparent distress. BP elevated overnight, now controlled with medication. RN at bedside and updated. Authorization cleared for [facility]. BP now stable and from medical standpoint clear for discharge. No other new acute complaints. Objective Vitals Vital Signs Date Time Temp Pulse Resp B/P Pulse Ox O2 Delivery O2 Flow Rate FiO2 09/19/16 09:52 Trach Collar 5.00 28 09/19/16 09:48 88 09/19/16 08:00 98.2 75 18 136/65 99 09/19/16 04:00 97.8 88 20 187/88 100 09/19/16 00:00 97.7 89 20 199/113 99 09/18/16 21:11 100 T-piece 21 09/18/16 20:00 97.7 89 20 199/113 99 09/18/16 19:00 99 Trach Collar 5.00 28 09/18/16 16:00 96.9 81 21 141/79 100 09/18/16 13:24 21 09/18/16 12:00 97.7 84 20 160/86 98 I/O 09/18/16 09/18/16 09/18/16 09/19/16 09/19/16 09/19/16 07:00 15:00 23:00 07:00 15:00 23:00 Intake Total 160 ml 0 ml Output Total 800 ml 980 ml 1900 ml Balance -800 ml -820 ml -1900 ml 0 ml IV Total 0 ml Tube Feeding 0 ml Other 160 ml Output Urine Total 800 ml 980 ml 1900 ml # Bowel Movements 2 3 2 Result Diagram: 09/18/16 0742 09/18/16 0742 Imaging Last Impressions Pelvis CT 09/16/16 0000 Signed Impressions: Service Date/Time: Friday, September 16, 2016 11:24 - CONCLUSION: 1. No evidence for femoral neck fracture. Calvin Uribe MD Hip and Pelvis X-Ray 09/15/16 1507 Signed Impressions: Service Date/Time: Thursday, September 15, 2016 20:11 - CONCLUSION: Findings suggest the possibility of a nondisplaced femoral neck fracture with some irregularity of the trabecular superior aspect of the femoral neck. Benito Tobias MD Chest X-Ray 09/14/16 0000 Signed Impressions: Service Date/Time: Wednesday, September 14, 2016 10:26 - CONCLUSION: No acute disease. Calvin Uribe MD Hand X-Ray 09/12/16 0000 Signed Impressions: Service Date/Time: Monday, September 12, 2016 15:38 - CONCLUSION: Marked soft tissue swelling. Eddie Smith MD FACR Upper Extremity Ultrasound 09/11/16 0000 Signed Impressions: Service Date/Time: August 19:09 - CONCLUSION: 1. Large complex fluid collection on the posterior hand and concern for abscess or seroma. 2. Superficial venous thrombus in the distal right cephalic vein at the level of the wrist. 3. No evidence of deep venous thrombosis. Amor Uriarte MD Renal Ultrasound 08/18/16 0000 Signed Impressions: Service Date/Time: Thursday, August 18, 2016 20:22 - CONCLUSION: 1. Small echogenic kidneys typical of chronic parenchymal disease. No evidence of obstructive uropathy or other acute renal abnormality. 2. [place] in the bladder, grossly unremarkable. 3. Apparent small retroperitoneal free fluid, etiology uncertain. Estrada Dunham MD Abdomen X-Ray 08/16/16 0000 Signed Impressions: Service Date/Time: Tuesday, August 16, 2016 08:05 - CONCLUSION: Is a chest tube tip in stomach. Side port in the region of the gastroesophageal junction. Jhony Kirkpartick MD Head CT 08/13/16 0800 Signed Impressions: Service Date/Time: Saturday, August 13, 2016 04:37 - CONCLUSION: Stable brain appearance Estrada Snow MD Objective Remarks GENERAL: Pt laying in bed, non-verbal, T-piece in place. In NAD at the time. SKIN: Warm and dry. HEAD: Normocephalic. Pt with left sided bite guard present. Tongue swelling minimal almost resolved. EYES: No scleral icterus. No injection or drainage. NECK: Supple, trachea midline. CARDIOVASCULAR: Regular rate and rhythm. No murmur appreciated. RESPIRATORY: Breath sounds equal bilaterally. No accessory muscle use. GASTROINTESTINAL: Abdomen soft, non-tender, nondistended. PEG site clean/d/i. MUSCULOSKELETAL: No cyanosis, or edema. Bilateral left upper and lower extremity following commands, right side hemiplegia noted. PSYCHIATRIC: Awake and alert, responds to commands. Nodding appropriately. Tracking with eyes. Procedures Intubation 08/12/16 Tracheostomy 08/21/16 Peg Tube placement 08/25/16 Medications and IVs Current Medications Medications (Trade) Dose Ordered Sig/Jones Route Start Time Stop Time Status Last Admin (NS Flush) 2 ml UNSCH PRN .XX 08/12/16 18:30 (NS Flush) 2 ml BID .XX 08/12/16 21:00 09/19/16 10:06 Miscellaneous Information 1 Q361D XX 08/12/16 18:30 (Chlorhexidine 2% Cloth) Taper DAILY@04 TOP 08/13/16 04:00 08/09/17 03:59 09/18/16 04:00 (Chlorhexidine 2% Cloth) 3 pack UNSCH PRN TOP 08/12/16 18:30 (Dulcolax Supp) 10 mg DAILY PRN RECTAL 08/12/16 18:30 08/23/16 09:14 (Lactulose Liq) 30 ml DAILY PRN PO 08/12/16 18:30 08/23/16 09:14 (Brethine Inj) 1 mg UNSCH PRN SQ 08/19/16 07:00 (Heparin Inj) 5,000 units Q8HR SQ 08/24/16 14:00 09/19/16 07:05 (Catapres-Tts 0.3 Mg Patch.7d) 1 patch Q7D T-DERMAL 08/28/16 13:00 09/18/16 12:10 Miscellaneous Information 1 Q7D T-DERMAL 09/04/16 13:00 09/11/16 12:29 (D50w (Vial) Inj) 50 ml UNSCH PRN IV 09/05/16 21:30 (Glucagon Inj) 1 mg UNSCH PRN OTHER 09/05/16 21:30 (Tylenol) 650 mg Q6H PRN G-TUBE 09/11/16 12:30 (Adele-Colace) 1 tab BID G-TUBE 09/11/16 09:00 09/19/16 10:05 (Apresoline) 100 mg Q8HR G-TUBE 09/11/16 14:00 09/19/16 07:05 (Levemir Inj) 40 units DAILYAC SQ 09/11/16 09:00 09/19/16 08:00 (Procardia) 10 mg Q6HR NG 09/11/16 12:00 09/19/16 06:00 (Senokot) 17.2 mg Q12H PRN G-TUBE 09/11/16 18:30 09/14/16 22:45 (Pepcid) 10 mg BID G-TUBE 09/11/16 21:00 09/19/16 10:05 (Glucotrol) 5 mg BIDAC G-TUBE 09/11/16 16:00 09/19/16 07:06 (Pill Splitter) 1 ea UNSCH PRN OTHER 09/11/16 11:30 (Benadryl Liq) 12.5 mg Q6H PEG 09/12/16 20:00 09/19/16 08:00 (Apresoline) 25 mg Q6HR PRN PO 09/15/16 17:45 ([place] 5-325 Mg) 1 tab Q4H PRN PEG 09/15/16 20:00 09/16/16 01:43 ([place] 10-325 Mg) 1 tab Q4H PRN PEG 09/15/16 20:00 09/19/16 01:30 (Dilaudid Pf Inj) 0.75 mg Q4H PRN IV 09/15/16 20:00 (predniSONE LIQ) 10 mg DAILY PEG 09/17/16 09:00 09/22/16 08:59 09/19/16 10:06 (NovoLIN R INJ) 4 units TIDAC SQ 09/16/16 17:00 09/19/16 08:00 (Free Water) VOLUME OF WATER: ( 100 ) ML BID G-TUBE 09/18/16 21:00 09/19/16 09:00 (Catapres) 0.3 mg Q8HR G-TUBE 09/19/16 14:00 (Coreg) 6.25 mg Q12HR PO 09/19/16 10:30 09/19/16 10:19 Urinary Catheter: Yes Date of Insertion: Sep 15, 2016 A/P Problem List: (1) Left basal ganglia hemorrhage Status: Acute (2) Hemorrhagic stroke ICD Code: I61.9 Status: Acute (3) Acute respiratory failure ICD Code: J96.00 Status: Acute (4) HCAP (healthcare-associated pneumonia) ICD Code: J18.9 Status: Acute (5) Angioedema ICD Code: T78.3XXA Status: Acute (6) Hypertensive emergency ICD Code: I16.1 Status: Acute (7) Hypernatremia ICD Code: E87.0 Status: Acute (8) Acute kidney failure ICD Code: N17.9 Status: Acute Assessment and Plan 56-year-old female admitted secondary to basal ganglia hemorrhage related to hypertension. Status post lisinopril reaction with angioedema. Also admitted related to hypertensive urgency. Angioedema is improving slowly. Acute blood loss discovered last afternoon. Patient transfused 3 units of packed red blood cells 08/30/16. Acute hemorrhagic basal ganglia stroke Acute encephalopathy, improving - Maintain blood pressure control with systolic goal less than 160 mmHg - Follow neurological status. - Encephalopathy improving. - Neurosurgeon signed off, no further management. - Continue physical therapy/OT Hypoxic respiratory failure, acute on chronic - Pulmonary following, appreciate input. - Trach replaced to #6 fenestrated cuffless trach 09/15/16. Attempt PMV. - Continue oxygenation via tracheostomy - Continue tracheostomy care - Pulmonary toilet - Wean FiO2 as tolerated - Continue scheduled and PRN Duonebs. Severe Angioedema suspect secondary to NEGRITO. Improving. - Avoid Negrito inhibitors - Continue Prednisone 10 mg daily for 6 days. Assess tongue swelling throughout taper. - Continue Benadryl. - Monitor. Left hip pain suspect secondary to prior fall - CT pelvis/hip obtained and reviewed showing no signs of femoral fracture. - Control pain. [place] 5/325 mg PO q4h and 10/325 mg PO PRN per pain scale. Dilaudid 0.75 mg IV q4h PRN breakthrough pain. Denies any current pain. Anemia suspect secondary to acute blood loss: Resolved. - H/H stable. - Status post 3 units of packed red blood cells transfused 08/30/16. Hypertension, chronic: uncontrolled suspect secondary to hip pain Recent hypertensive urgency - More controlled today. - Continue metoprolol, hydralazine, clonidine, nifedipine - Hydralazine 25 mg PO q6h PRN and clonidine 0.3 mg q6h PRN sys >180/ diastolic>100, Hold HR<60. Acute on chronic renal failure CKD stage IV - Nephrology signed off. BMP stable for several weeks. Reconsult if needed. - Monitor I's and O's - Maintain [place] catheter - Avoid nephrotoxins. Hypokalemia: BMP reviewed today, K 3.9, normal post supplementation. Leukocytosis suspect secondary to steroids: CBC reviewed today, WBC 13.7 --> 16.7 --> 16.1. Afebrile. No signs of infection. Mild bandemia. Protein calorie malnutrition: Continue tube feedings and Gonzalo supplementation. MSSA pneumonia, resolved: Treatment completed. Escherichia coli UTI, resolved: Treated with Rocephin 1 GM Daily Diabetes mellitus type 2 Uncontrolled suspect secondary to steroid use. - Levemir 40 units every morning. - ACCU checks q4h, continue Sliding scale insulin moderate scale, cover as needed. - Increase prandial insulin 4 units sq TIDAC. Monitor closely. - Patient still continued on prednisone, may be causing hyperglycemia. Once dc'd, monitor closely. - Continue tube feedings. - A1c noted to be 6.4 Right hand abscess versus seroma - Hand surgery has been consulted, Dr. Sawant, who has no indication for surgical intervention. Recommendations for light compressive negrito wrap to right hand and follow up in outpatient setting. - Hand wound cultures sent and pending. Right arm superficial venous thrombosis - Per US of 09/11/16, distal cephalic vein thrombus at level of the wrist noted. DVT prophylaxis: SCDs and subcutaneous heparin. GI prophylaxis: Pepcid Discharge Planning Authorization cleared for [facility] today. Attending Statement Seen in her bedroom, discussed with RENETTA Mrs. Pickens no new issues, patient ready for discharge to Rehab, antihypertensive medicines adjusted, improving today she has Intermittent Accelerated hypertension. Ashley Pickens Sep 19, 2016 10:43 Rick Barba MD Sep 19, 2016 12:24
[2016-09-19] MEDS ORDERED: NIFE10 NG (11:31)
[2016-09-19] MEDS ORDERED: LEVEMIR SQ (11:31)
[2016-09-19] MEDS ORDERED: NOVORP2 SQ ×2 (11:31)
[2016-09-19] MEDS ORDERED: CLON.3T T-DERMAL (11:31)
[2016-09-19] MEDS ORDERED: HYDR-3801 G-TUBE (11:31)
[2016-09-19] MEDS ORDERED: SENN1TAB G-TUBE (11:31)
[2016-09-19] MEDS ORDERED: FAMO20TA2 G-TUBE (11:31)
[2016-09-19] MEDS ORDERED: CARV6.25 PO (11:31)
[2016-09-19] MEDS ORDERED: IPRASOL INH (11:44)
--- NOTE | 2016-09-19 11:48 | HHI.DS ---
Discharge Summary Admission Date August 12, 2016 at 18:05 Discharge Date: Sep 19, 2016 Admitting Diagnosis intracranial bleed (1) Left basal ganglia hemorrhage Diagnosis: Principal (2) Hemorrhagic stroke ICD Code: I61.9 Diagnosis: Principal (3) Acute respiratory failure ICD Code: J96.00 Diagnosis: Principal (4) HCAP (healthcare-associated pneumonia) ICD Code: J18.9 Diagnosis: Principal (5) Angioedema ICD Code: T78.3XXA Diagnosis: Principal (6) Hypertensive emergency ICD Code: I16.1 Diagnosis: Principal (7) Hypernatremia ICD Code: E87.0 Diagnosis: Principal (8) Acute kidney failure ICD Code: N17.9 Diagnosis: Principal Procedures Intubation 08/12/16 Tracheostomy 08/21/16 Peg Tube placement 08/25/16 Brief History - From Admission 56-year-old female presents with last seen normal at 5:30am. On arrival to emergency department the patient has right sided weakness but outside stroke alert window, nonverbal. The CAT scan of the head showed acute left basal ganglia hemorrhagic stroke. She was intubated by an ER attending for an airway protection admitted to ICU. CBC/BMP: 09/18/16 0742 09/18/16 0742 Significant Findings Laboratory Tests Test 09/17/16 09/18/16 10:25 07:42 Potassium Level 3.4 MEQ/L (3.5-5.1) Blood Urea Nitrogen 80 MG/DL (7-18) 83 MG/DL (7-18) Creatinine 3.58 MG/DL 3.29 MG/DL (0.50-1.00) (0.50-1.00) Estimat Glomerular Filtration 16 ML/MIN (>89) 17 ML/MIN (>89) Rate Random Glucose 188 MG/DL 257 MG/DL (74-106) (74-106) Calcium Level 10.3 MG/DL (8.5-10.1) White Blood Count 16.1 TH/MM3 (4.0-11.0) Red Blood Count 3.74 MIL/MM3 (4.00-5.30) Hemoglobin 11.1 GM/DL (11.6-15.3) Hematocrit 34.1 % (35.0-46.0) Neutrophils (%) (Auto) 81.2 % (16.0-70.0) Lymphocytes (%) (Auto) 7.9 % (9.0-44.0) Eosinophils (%) (Auto) 4.1 % (0.0-4.0) Neutrophils # (Auto) 13.0 TH/MM3 (1.8-7.7) Monocytes # (Auto) 1.0 TH/MM3 (0-0.9) Eosinophils # (Auto) 0.7 TH/MM3 (0-0.4) Neutrophils % (Manual) 82 % (16-70) Lymphocytes % 8 % (9-44) Eosinophils % 6 % (0-4) Neutrophils # (Manual) 13.7 TH/MM3 (1.8-7.7) Sodium Level 133 MEQ/L (136-145) Imaging Last Impressions Pelvis CT 09/16/16 0000 Signed Impressions: Service Date/Time: Friday, September 16, 2016 11:24 - CONCLUSION: 1. No evidence for femoral neck fracture. Calvin Uribe MD Hip and Pelvis X-Ray 09/15/16 1507 Signed Impressions: Service Date/Time: Thursday, September 15, 2016 20:11 - CONCLUSION: Findings suggest the possibility of a nondisplaced femoral neck fracture with some irregularity of the trabecular superior aspect of the femoral neck. Benito Tobias MD Chest X-Ray 09/14/16 0000 Signed Impressions: Service Date/Time: Wednesday, September 14, 2016 10:26 - CONCLUSION: No acute disease. Calvin Uribe MD Hand X-Ray 09/12/16 0000 Signed Impressions: Service Date/Time: Monday, September 12, 2016 15:38 - CONCLUSION: Marked soft tissue swelling. Eddie Smith MD FACR Upper Extremity Ultrasound 09/11/16 0000 Signed Impressions: Service Date/Time: August 19:09 - CONCLUSION: 1. Large complex fluid collection on the posterior hand and concern for abscess or seroma. 2. Superficial venous thrombus in the distal right cephalic vein at the level of the wrist. 3. No evidence of deep venous thrombosis. Amor Uriarte MD Renal Ultrasound 08/18/16 0000 Signed Impressions: Service Date/Time: Thursday, August 18, 2016 20:22 - CONCLUSION: 1. Small echogenic kidneys typical of chronic parenchymal disease. No evidence of obstructive uropathy or other acute renal abnormality. 2. [place] in the bladder, grossly unremarkable. 3. Apparent small retroperitoneal free fluid, etiology uncertain. Estrada Dunham MD Abdomen X-Ray 08/16/16 0000 Signed Impressions: Service Date/Time: Tuesday, August 16, 2016 08:05 - CONCLUSION: Is a chest tube tip in stomach. Side port in the region of the gastroesophageal junction. Jhony Kirkpatrick MD Head CT 08/13/16 0800 Signed Impressions: Service Date/Time: Saturday, August 13, 2016 04:37 - CONCLUSION: Stable brain appearance Estrada Snow MD PE at Discharge GENERAL: Pt laying in bed, non-verbal, T-piece in place. In NAD at the time. SKIN: Warm and dry. HEAD: Normocephalic. Pt with left sided bite guard present. Tongue swelling minimal almost resolved. EYES: No scleral icterus. No injection or drainage. NECK: Supple, trachea midline. CARDIOVASCULAR: Regular rate and rhythm. No murmur appreciated. RESPIRATORY: Breath sounds equal bilaterally. No accessory muscle use. GASTROINTESTINAL: Abdomen soft, non-tender, nondistended. PEG site clean/d/i. MUSCULOSKELETAL: No cyanosis, or edema. Bilateral left upper and lower extremity following commands, right side hemiplegia noted. PSYCHIATRIC: Awake and alert, responds to commands. Nodding appropriately. Tracking with eyes. Transfer Summary 56-year-old female presents with last seen normal at 5:30am. On arrival to emergency department the patient has right sided weakness but outside stroke alert window, nonverbal. The CAT scan of the head showed acute left basal ganglia hemorrhagic stroke. She was intubated by an ER attending for an airway protection admitted to ICU. 08/13 events overnight, the ICH sites remains the same. 08/14: BP control acceptable. Moves 4 limbs to stimulation, does not follow commands. 08/15: Glucose uncontrolled; start bid levemir and SSI. 08/16: Glucose intolerance persists. Increase Levemir. Increase HTN meds, add schedules hydralazine. 08/17: Glucose control problematic. Add more oral BP control. Largely unresponsive. 08/18: poor neurologic exam persists. glycemic control better. hypertension still uncontrolled requiring nicardipine. Cr stable, and likely chronic. acidosis persists despite bicarb infusion. 08/19: no change in neurologic exam. blood pressure under better control, and slightly hypotensive this morning. off nicardipine. Cr stable. FENa 8% consistent with an intrinsic renal process. renal ultrasound consistent with chronic renal disease. hypernatremia and free water deficit persists despite aggressive free water replacement, as well as total volume overload persists. non-gapped acidosis also persists. 08/20: Spiking fever Tmax 101.3, source unclear. White count 22.9 increased from yesterday. Send panculture, start Zosyn while waiting for cultures to be resulted. Sodium steadily improving 151 today uterine output 4 L BUN 66 creatinine 3.95. Partial eye opening spontaneously, right side flaccid, moves left side spontaneously per RN. Tongue is swollen protuberant 08/21: Fever downtrending, but WBC increased to 25.1, Na 148 BUN/Cr 68/4.15. Placed on Diuril by nephrology for significant fluid overload 08/22: Improving neuro exam, follows commands on left upper and lower extremity. BUN/creatinine increasing today 87/4.3 Will reduce Diuril. May need HD. Cleared for sq heparin by Dr. Tran 08/23 still bad angioedema, hypoglycemic last night 08/24 drop in hemoglobin to 7.7 from 8.8 without hemodynamic changes 08/25 Sitting up in stretcher chair. On TP. UO approx 4L. Creat slightly improved to 4.2 08/26: Remained off vent overnight. Intermittent BP elevation. Will increase Clonidine. Angioedema ? slightly improved. DC Diuril 08/27: Continues to be off vent now more than 72 hr. blood pressure is better controlled. BUN/creatinine improving 85/3.8 urine output 3.5 L in 24 hours. tongue swelling now significantly improved. Follows commands Pt update on day of discharge Follow-up for left basal ganglia hemorrhagic stroke, DM, and angioedema. Patient seen and examined. Lying comfortably in bed, no apparent distress. BP elevated overnight, now controlled with medication. RN at bedside and updated. Authorization cleared for [facility]. BP now stable and from medical standpoint clear for discharge. No other new acute complaints. Hospital Course 56-year-old female admitted secondary to basal ganglia hemorrhage related to hypertension. Status post lisinopril reaction with angioedema. Also admitted related to hypertensive urgency. Angioedema improved. Acute hemorrhagic basal ganglia stroke and acute encephalopathy, improved. Efforts to maintain BP less than 160 mmHg while hospitalized. Patient on multiple BP medications, see medication list. Encephalopathy improved Neurosurgery following patient while hospitalized. Continue physical therapy/OT. Hypoxic respiratory failure, acute on chronic requiring trach placement. Currently has #6 fenestrated cuffless trach and tolerating intermittent PMV. Pulmonology following. Pulmonary toilet. Continue Duonebs. Severe Angioedema suspect secondary to NEGRITO while hospitalized. Improved. Was on prednisone taper now discontinued. Patient had anemia suspect secondary to acute blood loss with H/H stable upon DC. Patient status post 3 units of packed red blood cells transfused 08/30/16. Patient with CKD stage IV, nephrology was following. BMP stable. Avoid nephrotoxins. WIth mild hypokalemia during hospitalization and status post replacement. Stable. Mild leukocytosis suspect secondary to steroids: las WBC 16.1. Afebrile. No signs of infection. Monitor further labs post discharge. Protein calorie malnutrition, PEG placement and continue tube feedings and Gonzalo supplementation. Patient with MSSA pneumonia, resolved: Treatment completed. Escherichia coli UTI, resolved: Treated with Rocephin 1 GM Daily. Diabetes mellitus type 2 Uncontrolled, given Levemir 40 units every morning. ACCU checks q4h, continue Sliding scale insulin moderate scale, cover as needed. Prandial insulin 4 units sq TIDAC. Monitor closely for drop now that prednisone is Dc'd. Last hemoglobin A1c noted to be 6.4 Right arm superficial venous thrombosis per US of 09/11/16, distal cephalic vein thrombus at level of the wrist. DVT prophylaxis with heparin during hospitalization. Pt Condition on Discharge: Stable Discharge Disposition: Discharge to SNF Discharge Time: > 30 minutes Discharge Instructions DIET: Follow Instructions for: On Tube Feeding Activities you can perform: Regular-No Restrictions Ashley Pickens Sep 19, 2016 11:48 Rick Barba MD Sep 19, 2016 12:25
[2016-09-19 12:00] VITALS: BP 133/79; PULSE 76; RESP 18; TEMP 97.6; O2SAT 100
[2016-09-19] MEDS ORDERED: HYDR-3583 PEG (12:26)
[2016-09-19] MEDS ORDERED: cloNIDine HCL 0.1 MG TAB G-TUBE SCH (14:00)
--- NOTE | 2016-09-19 15:17 | HHI.PR ---
Subjective Remarks ass: IC BLEED S/P TRACH NO DISTRESS tongue swelling seems less Objective Vital Signs Date Time Temp Pulse Resp B/P Pulse Ox O2 Delivery O2 Flow Rate FiO2 09/19/16 12:00 97.6 76 18 133/79 100 09/19/16 10:30 100 Trach Collar 8.00 21 09/19/16 10:30 21 09/19/16 09:52 Trach Collar 5.00 28 09/19/16 09:48 88 09/19/16 08:00 98.2 75 18 136/65 99 09/19/16 04:00 97.8 88 20 187/88 100 09/19/16 00:00 97.7 89 20 199/113 99 09/18/16 21:11 100 T-piece 21 09/18/16 20:00 97.7 89 20 199/113 99 09/18/16 19:00 99 Trach Collar 5.00 28 09/18/16 16:00 96.9 81 21 141/79 100 I/O 09/18/16 09/18/16 09/18/16 09/19/16 09/19/16 09/19/16 07:00 15:00 23:00 07:00 15:00 23:00 Intake Total 160 ml 480 ml Output Total 800 ml 980 ml 1900 ml Balance -800 ml -820 ml -1900 ml 480 ml IV Total 0 ml Tube Feeding 0 ml 280 ml Other 160 ml 200 ml Output Urine Total 800 ml 980 ml 1900 ml # Bowel Movements 2 3 2 Result Diagram: 09/18/16 0742 09/18/16 0742 Procedures Endotracheal Intubation and extubation Tracheostomy PEG tube placement. Objective Remarks GENERAL: SKIN: Warm and dry. HEAD: Atraumatic. Normocephalic. tongue protruding EYES: Pupils equal and round. No scleral icterus. No injection or drainage. ENT: No nasal bleeding or discharge. Mucous membranes pink and moist. NECK: Trachea midline. trach in place . CARDIOVASCULAR: Regular rate and rhythm. RESPIRATORY: No accessory muscle use. Clear to auscultation. Breath sounds equal bilaterally. GASTROINTESTINAL: Abdomen soft, non-tender, nondistended. Hepatic and splenic margins not palpable. MUSCULOSKELETAL: Extremities without clubbing, cyanosis, or edema. No obvious deformities. NEUROLOGICAL: Awake and alert. No obvious cranial nerve deficits. Motor grossly within normal limits. Five out of 5 muscle strength in the arms and legs. Normal speech. PSYCHIATRIC: Appropriate mood and affect; insight and judgment normal. Assessment and Plan Assessment and Plan ass respiratory failure S/P IC bleed S/P Tracheostomy plan: O2 as needed pulmonary toilet WILL KEEP TRACH IN [place] TONGUE IS OBSTRUCTING AIRWAY ok for d/c to [facility] facility to [facility] Bianca Valenzuela MD Sep 19, 2016 15:17
== END 2016-09-19 15:41 | DRG 4 ==
LOC: NEPC 17:15 → NEDA 18:05 → N03A 21:56 → N03B 08-28 01:15 → N05A 09-05 02:25
PROVIDERS: ADMIT Internal Medicine; ATTEND Internal Medicine
PROC: 5A1955Z Respiratory Ventilation, Greater than 96 Consecutive Hours (ICD-10-PCS; 2016-08-12)
PROC: 03HY32Z Insertion of Monitoring Device into Upper Artery, Percutaneous Approach (ICD-10-PCS; 2016-08-12)
PROC: 02HV33Z Insertion of Infusion Device into Superior Vena Cava, Percutaneous Approach (ICD-10-PCS; 2016-08-12)
PROC: 0BH17EZ Insertion of Endotracheal Airway into Trachea, Via Natural or Artificial Opening (ICD-10-PCS; 2016-08-12)
PROC: 0B938ZX Drainage of Right Main Bronchus, Via Natural or Artificial Opening Endoscopic, Diagnostic (ICD-10-PCS; 2016-08-21)
PROC: 0DJ08ZZ Inspection of Upper Intestinal Tract, Via Natural or Artificial Opening Endoscopic (ICD-10-PCS; 2016-08-21)
PROC: 0DH68UZ Insertion of Feeding Device into Stomach, Via Natural or Artificial Opening Endoscopic (ICD-10-PCS; 2016-08-21)
PROC: 0B113F4 Bypass Trachea to Cutaneous with Tracheostomy Device, Percutaneous Approach (ICD-10-PCS; principal; 2016-08-21 13:05)
PROC: 30233K1 Transfusion of Nonautologous Frozen Plasma into Peripheral Vein, Percutaneous Approach (ICD-10-PCS; 2016-08-23)
PROC: 30233N1 Transfusion of Nonautologous Red Blood Cells into Peripheral Vein, Percutaneous Approach (ICD-10-PCS; 2016-08-30)
PROC: 0H9FXZZ Drainage of Right Hand Skin, External Approach (ICD-10-PCS; 2016-09-12)
DX: I61.0 Nontraumatic intracerebral hemorrhage in hemisphere, subcortical (principal); N17.0 Acute kidney failure with tubular necrosis; A41.9 Sepsis, unspecified organism; G93.40 Encephalopathy, unspecified; J15.211 Pneumonia due to Methicillin susceptible Staphylococcus aureus; E46 Unspecified protein-calorie malnutrition; N18.4 Chronic kidney disease, stage 4 (severe); J96.01 Acute respiratory failure with hypoxia; J96.02 Acute respiratory failure with hypercapnia; E87.2 Acidosis; E87.0 Hyperosmolality and hypernatremia; I13.0 Hypertensive heart and chronic kidney disease with heart failure and stage 1 through stage 4 chronic kidney disease, or unspecified chronic kidney disease; I16.1 Hypertensive emergency; N39.0 Urinary tract infection, site not specified; I82.611 Acute embolism and thrombosis of superficial veins of right upper extremity; D62 Acute posthemorrhagic anemia; I50.9 Heart failure, unspecified; R13.10 Dysphagia, unspecified; E11.22 Type 2 diabetes mellitus with diabetic chronic kidney disease; I12.9 Hypertensive chronic kidney disease with stage 1 through stage 4 chronic kidney disease, or unspecified chronic kidney disease; E66.01 Morbid (severe) obesity due to excess calories; T78.3XXA Angioneurotic edema, initial encounter; I16.0 Hypertensive urgency; E78.5 Hyperlipidemia, unspecified; E11.65 Type 2 diabetes mellitus with hyperglycemia; E11.649 Type 2 diabetes mellitus with hypoglycemia without coma; T46.4X5A Adverse effect of angiotensin-converting-enzyme inhibitors, initial encounter; E87.5 Hyperkalemia; S09.93XA Unspecified injury of face, initial encounter; M25.552 Pain in left hip; E87.6 Hypokalemia; M79.89 Other specified soft tissue disorders; F41.9 Anxiety disorder, unspecified; W19.XXXA Unspecified fall, initial encounter; Y92.239 Unspecified place in hospital as the place of occurrence of the external cause; Z68.35 Body mass index [BMI] 35.0-35.9, adult; Z79.84 Long term (current) use of oral hypoglycemic drugs; Z78.1 Physical restraint status
CPT/HCPCS: 31500; 31600; 31624; 36430; 36600; 70450; 71010; 72192; 73120; 73502; 74000; 76775; 76937; 80048; 80053; 80069; 80202; 81001; 82550; 82552; 82570; 82805; 82948; 83036; 83605; 83735; 83930; 83935; 84100; 84132; 84155; 84300; 84443; 84484; 85007; 85014; 85018; 85025; 85027; 85610; 85730; 86403; 86850; 86900; 86901; 86920; 86927; 87040; 87070; 87077; 87086; 87147; 87186; 87205; 87641; 93005; 93306; 93971; 94002; 94003; 94664; 95819; 96374; 96375; A7520; A7521; J0330; J0360; J0610; J0696; J1100; J1170; J1200; J1205; J1644; J1815; J1940; J2250; J2270; J2543; J3010; J3370; J7030; J7040; J7050; J7070; J7512; P9016; P9017